=== PATIENT | female | born 1955 | race Caucasian/White ===

== ENCOUNTER 2017-01-05 15:02 | Emergency (ER) | payer OTHER ==
[~2017-01-05] VITALS: Ht 157.5 cm; Wt 86.0 kg
[~2017-01-05 15:02] MED LIST: ALBU0.08 INH; AMB10 PO; CHOL100010 PO; FENO134C PO; FISHOIL PO; LEVO88TA PO; LISI20TA3 PO; PANT40TA PO; SALI0.6517 NAE; VALA1TAB PO; ZNTT/150 PO
[2017-01-05 15:08] VITALS: TEMP 37; Ht 157.5 cm; Wt 86.0 kg
[2017-01-05 15:46] LABS: BASO % 0.2 %; BASO ABS # 0.01 K/uL (0-0.2); COMPLETE YES; IG% 0.7 %; LYMPH ABS # 1.24 K/uL (1.2-3.4); MEAN CORPUSCULAR HEMOGLOBIN 30.9 pg (25-34); MEAN CORPUSCULAR HGB CONC 35.6 g/dl (32-36); MEAN PLATELET VOLUME 9.1 fL (7.4-10.4); MONO % 2.8 %; NEUT % 73.3 %; PLATELET COUNT 286 K/uL (130-400); RED BLOOD COUNT 5.17 M/uL (4.2-5.4); WHITE BLOOD COUNT 5.38 K/uL (4.8-10.8)
--- NOTE | 2017-01-05 15:46 | EMERGENCY ROOM VISIT NOTE ---
History Report prepared by Yelena: Jodi Conde Under the Supervision of: Dr. Mario Doan M.D. First contact with patient: 15:31 Chief Complaint: RESPIRATORY PROBLEMS Stated Complaint: RESPIRATORY ISSUES-SENT FROM 'S OFFICE Nursing Triage Summary: sent by MD office; dx pneumonia sunday. History of Present Illness The patient is a 61 year old female who presents to the Emergency Room with complaints of worsening shortness of breath starting about 5 days ago. She also complains of a cough. 2 days ago, she was diagnosed with pneumonia. She has been taking Doxycycline as prescribed without relief. She has a history of asthma. The patient denies chest pain, abdominal pain, or any other complaints. Source of History: patient Onset: about 5 hours ago Position: other (global) Quality: other (shortness of breath) Timing: worsening Modifying Factors (Relieving): other (Doxycycline without relief) Associated Symptoms: + cough, No abdominal pain, No chest pain Review of Systems See HPI for pertinent positives & negatives. A total of 10 systems reviewed and were otherwise negative. Past Medical & Surgical Medical Problems: (1) Asthma (2) DIVERTICULITIS COLON (W/O MENT OF HEMORRHAGE) (3) Gastroesophageal reflux disease (4) HX-VENOUS THROMBOSIS&EMBOLISM (5) HYPERLIPIDEMIA NEC/NOS (6) HYPERTENSION NOS (7) Hypothyroidism (8) Irritable colon (9) s/p appendectomy (10) s/p cervical discectomy + fusion (11) s/p hysterectomy (12) s/p lumbar hemilaminectomy (13) SPINAL STENOSIS-LUMBAR (14) Spine surgery Family History No significant family history Social History Smoking Status: Former Smoker Alcohol Use: occasionally Marital Status: Housing Status: lives with family Current/Historical Medications Scheduled Albuterol Hfa (Ventolin Hfa), 2-4 PUFFS INH Q6H Cholecalciferol (Vitamin D3), 1 TAB PO DAILY Fenofibrate Micronized (Tricor), 134 MG PO DAILY Levothyroxine Sodium (Synthroid), 88 MCG PO QAM Lisinopril (Prinivil), 20 MG PO QAM [place]-3 Fatty Acids (Fish Oil), 1 CAP PO DAILY Pantoprazole (Protonix), 40 MG PO DAILY Prednisone (Prednisone), 0 PO DAILY Ranitidine (Zantac), 150 MG PO BID Scheduled PRN Albuterol Sulf (Proventil 0.083% 2.5MG/3ML), 2.5 MG INH Q4 PRN for SOB/Wheezing Lorazepam (Ativan), 0.5 MG PO Q6H PRN for Anxiety/Insomnia Valacyclovir Hcl (Valtrex), 1,000 MG PO DAILY PRN for OUTBREAKS Zolpidem Tartrate (Ambien), 10 MG PO HS PRN for Sleep Allergies Coded Allergies: Fentanyl (Verified Allergy, Unknown, itching, 01/05/17) Levofloxacin (Verified Allergy, Unknown, CAN'T TAKE WITH FLECAINIDE, ) gmg Penicillins (Verified Allergy, Unknown, RASH, 01/05/17) ALLERGY IS RASH Sulfa Drugs (Verified Allergy, Unknown, 01/05/17) Replaces SULFAMETHOXAZ Sulfamethoxazole (Verified Allergy, Unknown, 01/05/17) Replaces SULFAMETHOXAZ Trimethoprim (Verified Allergy, Unknown, 01/05/17) Replaces SULFAMETHOXAZ Physical Exam Vital Signs Date Time Temp Pulse Resp B/P Pulse Ox O2 Delivery O2 Flow Rate FiO2 01/05/17 17:45 96 15 144/75 98 01/05/17 17:15 93 01/05/17 16:58 106 15 145/78 100 Nebulizer 01/05/17 16:26 69 20 99 Room Air 01/05/17 15:08 37.0 81 18 168/102 96 Room Air Physical Exam CONSTITUTIONAL: Mild distress HEENT: No icterus, moist mucous membranes NECK: No meningismus, trachea is midline. CARDIOVASCULAR: Regular rate, normal perfusion RESPIRATORY: Mod wheezing in all culver GASTROINTESTINAL: Non-tender GENITOURINARY: No flank tenderness MUSCULOSKELETAL: Full range of motion NEUROLOGIC: No acute gross focal deficits. PSYCHIATRIC: Normal affect SKIN: Normal for ethnicity. Medical Decision & Procedures ER Provider Diagnostic Interpretation: X-ray results as stated below per interpretation by me and the radiologist. CHEST 2 VIEWS ROUTINE CLINICAL HISTORY: Cough. COMPARISON STUDY: Chest radiograph and chest CT March 25, 2014. FINDINGS: An anterior cervical spine fusion is incidentally noted. There is no pneumothorax. Cardiac size is normal. Mediastinal contours are normal. There is no evidence of pulmonary edema. There is no consolidation. IMPRESSION: No acute cardiopulmonary findings. Electronically signed by: Arsen Dominguez M.D. 01/05/2017 4:47 PM Dictated Date/Time: 01/05/2017 4:46 PM Laboratory Results 01/05/17 15:27 Red Blood Count 5.17, Mean Corpuscular Volume 87.0, Mean Corpuscular Hemoglobin 30.9, Mean Corpuscular Hemoglobin Concent 35.6, Mean Platelet Volume 9.1, Neutrophils (%) (Auto) 73.3, Lymphocytes (%) (Auto) 23.0, Monocytes (%) (Auto) 2.8, Eosinophils (%) (Auto) 0.0, Basophils (%) (Auto) 0.2, Neutrophils # (Auto) 3.94, Lymphocytes # (Auto) 1.24, Monocytes # (Auto) 0.15, Eosinophils # (Auto) 0.00, Basophils # (Auto) 0.01 01/05/17 15:27 Test 01/05/17 15:27 01/05/17 15:49 01/05/17 16:11 White Blood Count 5.38 K/uL (4.8-10.8) Red Blood Count 5.17 M/uL (4.2-5.4) Hemoglobin 16.0 g/dL (12.0-16.0) Hematocrit 45.0 % (37-47) Mean Corpuscular Volume 87.0 fL (80-100) Mean Corpuscular Hemoglobin 30.9 pg (25-34) Mean Corpuscular Hemoglobin Concent 35.6 g/dl (32-36) Platelet Count 286 K/uL (130-400) Mean Platelet Volume 9.1 fL (7.4-10.4) Neutrophils (%) (Auto) 73.3 % Lymphocytes (%) (Auto) 23.0 % Monocytes (%) (Auto) 2.8 % Eosinophils (%) (Auto) 0.0 % Basophils (%) (Auto) 0.2 % Neutrophils # (Auto) 3.94 K/uL (1.4-6.5) Lymphocytes # (Auto) 1.24 K/uL (1.2-3.4) Monocytes # (Auto) 0.15 K/uL (0.11-0.59) Eosinophils # (Auto) 0.00 K/uL (0-0.5) Basophils # (Auto) 0.01 K/uL (0-0.2) RDW Standard Deviation 43.0 fL (36.4-46.3) RDW Coefficient of Variation 13.4 % (11.5-14.5) Immature Granulocyte % (Auto) 0.7 % Immature Granulocyte # (Auto) 0.04 K/uL (0.00-0.02) Anion Gap 11.0 mmol/L (3-11) Est Creatinine Clear Calc Drug Dose 79.2 ml/min Estimated GFR () 99.9 Estimated GFR (Non- 86.2 BUN/Creatinine Ratio 21.6 (10-20) Calcium Level 9.2 mg/dl (8.5-10.1) Bedside Lactic Acid Venous 1.10 mmol/L (0.90-1.70) Influenza Type A Antigen POS for Influ A (NEG) Influenza Type B Antigen Neg for Influ B (NEG) Labs reviewed by ED physician. Medications Administered Medications (Trade) Dose Ordered Sig/Kt Route Start Time Stop Time Status Last Admin Dose Admin Methylprednisolone Sodium Succinate (Solu-Medrol IV) 125 mg NOW STAT IV 01/05/17 15:48 01/05/17 15:49 DC 01/05/17 16:06 125 MG Albuterol/ Ipratropium (Duoneb) 10 ml Q4R INH 01/05/17 16:00 01/05/17 18:57 DC 01/05/17 16:26 10 ML ED Course 1531: Past medical records reviewed. The patient was evaluated in room B05. A complete history and physical examination was performed. 1548: Solu-Medrol IV 125 mg IV 1600: DuoNeb 10 ml INH 1725: Upon reexamination the patient is resting comfortably. Her lungs are clear. I discussed results and treatment plan with the patient. She verbalizes agreement and understanding. The patient is ready for discharge. Medical Decision Differential diagnosis includes but is not limited to pneumonia, wheezing. 61-year-old with long-standing history of asthma presents into the emergency room for worsening cough and shortness of breath not responding to albuterol inhaler. She notes she was at an urgent care last week and given doxycycline but symptoms have not noticeably improved despite treatment with prednisone 40 mg daily. Moderate wheezing noted in all culver without any rhonchi nor rales. She was given Solu-Medrol 125 mg IV and continuous albuterol nebulizer treatments with near complete resolution of her wheezing. Chest x-ray negative for pneumonia. Patient given refill for albuterol MDI, prednisone taper starting at 60 mg. She was noted and positive for flu. Given the duration of her symptoms were discussed the pros and cons of Tamiflu and was subsequently declined by her. She appeared well at the time of discharge. Impression Primary Impression: Flu Additional Impressions: Viral URI Wheezing Scribe Attestation The scribe's documentation has been prepared under my direction and personally reviewed by me in its entirety. I confirm that the note above accurately reflects all work, treatment, procedures, and medical decision making performed by me. Departure Information Dispostion Home / Self-Care Prescriptions Albuterol Hfa (VENTOLIN HFA) 200 Puffs/74235 Mcg Aers 2-4 PUFFS INH Q6H, #1 INHALER Prov: Mario Doan MD 01/05/17 Lorazepam (ATIVAN) 0.5 Mg Tab 0.5 MG PO Q6H Y for Anxiety/Insomnia, #12 TAB Prov: Mario Doan MD 01/05/17 Prednisone (Prednisone) 20 Mg Tab 0 PO DAILY, #18 TAB 3 DAILY FOR 3 DAYS, THEN 2 DAILY FOR 3 DAYS, THEN 1 DAILY FOR 3 DAYS. Prov: Mario Doan MD 01/05/17 Referrals Abdirashid Clemente M.D. (PCP) Forms HOME CARE DOCUMENTATION FORM, IMPORTANT VISIT INFORMATION, WORK / SCHOOL INSTRUCTIONS Patient Instructions ED Flu, ED URI Viral W Wheezing, My [facility] Health Problem Qualifiers
[2017-01-05] MEDS ORDERED: METHYLPREDNISOLONE 125 MG VIAL IV STA (15:48)
[2017-01-05] MEDS ORDERED: ZOLP10TA PO (15:56)
[2017-01-05] MEDS ORDERED: ALBINS/ INH (15:56)
[2017-01-05] MEDS ORDERED: VALA1TAB2 PO (15:56)
[2017-01-05] MEDS ORDERED: OMEG1CAP84 PO (15:56)
[2017-01-05] MEDS ORDERED: CHOL1000 PO (15:56)
[2017-01-05] MEDS: ALBUT/IPRATROP 3MG/0.5MG NEB 3 ML VIAL INH SCH ×2 (16:00→16:26)
[2017-01-05 16:05] LABS: BUN/CREATININE RATIO 21.6 (10-20); CALCIUM 9.2 mg/dl (8.5-10.1); CREATININE 0.74 mg/dl (0.60-1.20); POTASSIUM 4.1 mmol/L (3.5-5.1)
[2017-01-05 16:26] VITALS: PULSE 69; O2SAT 99
--- NOTE | 2017-01-05 16:48 | DIAGNOSTIC IMAGING REPORT ---
CHEST 2 VIEWS ROUTINE CLINICAL HISTORY: Cough. COMPARISON STUDY: Chest radiograph and chest CT March 25, 2014. FINDINGS: An anterior cervical spine fusion is incidentally noted. There is no pneumothorax. Cardiac size is normal. Mediastinal contours are normal. There is no evidence of pulmonary edema. There is no consolidation. IMPRESSION: No acute cardiopulmonary findings. Electronically signed by: Arsen Dominguez M.D. 01/05/2017 4:47 PM Dictated Date/Time: 01/05/2017 4:46 PM
[2017-01-05] MEDS ORDERED: LORA-741 PO (17:23)
[2017-01-05] MEDS ORDERED: PRED20TA PO (17:23)
[2017-01-05] MEDS ORDERED: VNTHFA/IN INH (17:23)
[2017-01-05 17:45] VITALS: BP 144/75; PULSE 96; O2SAT 98
== END 2017-01-05 17:47 | disposition home or self-care (01) ==
LOC: C.EDB 15:04
DX: J06.9 Acute upper respiratory infection, unspecified (principal); J11.1 Influenza due to unidentified influenza virus with other respiratory manifestations; I10 Essential (primary) hypertension; E78.5 Hyperlipidemia, unspecified; E03.9 Hypothyroidism, unspecified; K21.9 Gastro-esophageal reflux disease without esophagitis; J45.909 Unspecified asthma, uncomplicated; K57.92 Diverticulitis of intestine, part unspecified, without perforation or abscess without bleeding; Z98.1 Arthrodesis status; Z98.890 Other specified postprocedural states; Z90.710 Acquired absence of both cervix and uterus; Z87.891 Personal history of nicotine dependence; Z79.899 Other long term (current) drug therapy; Z88.2 Allergy status to sulfonamides; Z88.8 Allergy status to other drugs, medicaments and biological substances

== ENCOUNTER 2017-09-17 17:24 | Inpatient (IN) | payer OTHER ==
[~2017-09-17] VITALS: Ht 157.5 cm; Wt 86.5 kg
[~2017-09-17 17:24] MED LIST changes: +ALBINS/ INH; -ALBU0.08 INH; -AMB10 PO; +CHOL1000 PO; -CHOL100010 PO; -FISHOIL PO; +OMEG1CAP84 PO; -SALI0.6517 NAE; -VALA1TAB PO; +VALA1TAB2 PO; +ZOLP10TA PO
[2017-09-17] MEDS ORDERED: HYDROmorphone INJ 1 MG/ML SYR IV STA ×2 (18:02→21:26)
[2017-09-17] MEDS ORDERED: METOCLOPRAMIDE HCL INJ 5 MG/ML 2 ML VIAL IV STA (18:02)
[2017-09-17] MEDS ORDERED: KETOROLAC TROMETHAMINE 30 MG/ML VIAL IV STA (18:02)
[2017-09-17] MEDS ORDERED: SODIUM CHLORIDE 0.9% 1000ML 1,000 ML IV STA (18:02)
--- NOTE | 2017-09-17 18:08 | EMERGENCY ROOM VISIT NOTE ---
History Report prepared by Yelena: Mary Martinez Under the Supervision of: Dr. Navi Jordan M.D. First contact with patient: 17:59 Chief Complaint: RECTAL BLEEDING Stated Complaint: DVT, RECTAL BLEEDING Nursing Triage Summary: pt reports hx of diverticulitis , today pain became worse and noted some blood in toilet History of Present Illness The patient is a 62 year old female who presents to the Emergency Room with complaints of severe abdominal pain beginning this afternoon. The patient states that she started to have symptoms similar to when she has had diverticulitis in the past and they worsened over the past couple of hours. Presently, the patient is vomiting upon initial examination. She had an episode of diarrhea which had blood in it. The patient has a history of chronic diverticulitis. She was started on Levaquin and doxycycline yesterday for diverticulitis. Source of History: patient Onset: afternoon Position: abdomen Symptom Intensity: severe Timing: worsening Associated Symptoms: + vomiting, + diarrhea Review of Systems See HPI for pertinent positives & negatives. A total of 10 systems reviewed and were otherwise negative. Past Medical & Surgical Medical Problems: (1) Asthma (2) DIVERTICULITIS COLON (W/O MENT OF HEMORRHAGE) (3) Gastroesophageal reflux disease (4) HX-VENOUS THROMBOSIS&EMBOLISM (5) HYPERLIPIDEMIA NEC/NOS (6) HYPERTENSION NOS (7) Hypothyroidism (8) Irritable colon (9) s/p appendectomy (10) s/p cervical discectomy + fusion (11) s/p hysterectomy (12) s/p lumbar hemilaminectomy (13) SPINAL STENOSIS-LUMBAR (14) Spine surgery Family History No significant family history Social History Smoking Status: Never Smoker Alcohol Use: occasionally Marital Status: Housing Status: lives with family Current/Historical Medications Scheduled Cholecalciferol (Vitamin D3), 1 TAB PO DAILY Levothyroxine Sodium (Synthroid), 88 MCG PO QAM Lisinopril (Prinivil), 20 MG PO QAM [place]-3 Fatty Acids (Fish Oil), 1 CAP PO DAILY Ranitidine (Zantac), 150 MG PO PRN Zolpidem Tartrate (Ambien), 10 MG PO HS Scheduled PRN Albuterol Sulf (Proventil 0.083% 2.5MG/3ML), 2.5 MG INH Q4 PRN for SOB/Wheezing Valacyclovir Hcl (Valtrex), 1,000 MG PO DAILY PRN for OUTBREAKS Allergies Coded Allergies: Fentanyl (Verified Allergy, Unknown, itching, 09/17/17) Levofloxacin (Verified Allergy, Unknown, CAN'T TAKE WITH FLECAINIDE, 09/17) gmg Penicillins (Verified Allergy, Unknown, RASH, 09/17/17) ALLERGY IS RASH Sulfa Drugs (Verified Allergy, Unknown, 09/17/17) Replaces SULFAMETHOXAZ Sulfamethoxazole (Verified Allergy, Unknown, 09/17/17) Replaces SULFAMETHOXAZ Trimethoprim (Verified Allergy, Unknown, 09/17/17) Replaces SULFAMETHOXAZ Physical Exam Vital Signs Date Time Temp Pulse Resp B/P (MAP) Pulse Ox O2 Delivery O2 Flow Rate FiO2 09/17/17 18:27 93 20 145/84 93 Room Air 09/17/17 17:33 37.0 100 20 159/84 95 Room Air Physical Exam GENERAL: Patient is a healthy-appearing well-nourished [] HEAD: Normocephalic atraumatic EYES: Ocular movements intact pupils equal and react to light OROPHARYNX mucous membranes are moist no exudates present no erythema or edema present NECK: Supple no nuchal rigidity CHEST: Good equal expansion LUNGS: Clear and equal to auscultation CARDIAC: Normal S1 and S2 ABDOMEN: LLQ tenderness, no guarding BACK: No CVA tenderness EXTREMITIES: No pain upon palpation normal muscle strength in all groups no clubbing cyanosis or edema NEURO: Patient is following commands and answering questions appropriately. Alert and oriented x3 Cranial Nerves 2-12 grossly intact Medical Decision & Procedures ER Provider Diagnostic Interpretation: CT SCAN OF THE ABDOMEN AND PELVIS WITH IV CONTRAST CLINICAL HISTORY: Left lower quadrant abdominal pain. COMPARISON STUDY: Abdominal CT dated 07/17/2016. TECHNIQUE: Following the IV administration of 92 cc of Optiray 320, CT scan of the abdomen and pelvis is performed from the lung bases to the proximal femora. Images are reviewed in the axial, sagittal, and coronal planes. IV contrast was administered without complication. A dose lowering technique was utilized adhering to the principles of ALARA. The examination is degraded by large body habitus, and by streak artifact from the body wall abutting the CT gantry. CT DOSE: 937.58 mGy.cm FINDINGS: Lung bases: The heart is top normal in size and without pericardial effusion. A calcified granuloma is seen in the lingula. The lung bases are otherwise clear noting dependent atelectasis. There is a small hiatal hernia. Liver: The contrast-enhanced liver is enlarged, measuring 20 cm in length. The liver demonstrates diffusely diminished attenuation consistent with hepatic steatosis. There is no intrahepatic biliary ductal dilatation. The hepatic veins and portal veins are patent. Gallbladder: Unremarkable. Spleen: Normal in size and attenuation. Pancreas: Unremarkable. Adrenal glands: Unremarkable. Kidneys: The contrast enhanced kidneys are normal in size and without hydronephrosis. The kidneys enhance symmetrically. Abdominal vasculature: The abdominal aorta is normal in course and caliber noting mild to moderate atherosclerotic calcification. Bowel: There is moderate colonic diverticulosis. There is wall thickening with pericolonic inflammation and fluid seen involving the sigmoid colon consistent with acute diverticulitis. There is no evidence of diverticular abscess. Fecal retention is noted in the right colon. No bowel obstruction is seen. The appendix is not visualized. Peritoneum: There is no intraperitoneal free air or abdominal ascites. There is a small fat-containing umbilical hernia. Lymphadenopathy: None. Pelvic viscera: The bladder is decompressed and not well evaluated. The uterus is surgically absent. No adnexal lesion is seen. Skeletal structures: The skeletal structures are osteopenic. There is mild lumbosacral spondylosis and scoliosis. Postoperative change is noted at L5-S1. No lytic or blastic lesions are seen. IMPRESSION: 1. Findings are consistent with acute sigmoid diverticulitis. No intraperitoneal free air is seen and there is no evidence of abscess. 2. Hepatomegaly and hepatic steatosis. 3. Additional findings as above. Electronically signed by: Frank Mendez M.D. 09/17/2017 7:22 PM Dictated Date/Time: 09/17/2017 7:16 PM Laboratory Results 09/17/17 18:10 Red Blood Count 4.95, Mean Corpuscular Volume 88.9, Mean Corpuscular Hemoglobin 32.7, Mean Corpuscular Hemoglobin Concent 36.8, Mean Platelet Volume 8.9, Neutrophils (%) (Auto) 76.1, Lymphocytes (%) (Auto) 13.0, Monocytes (%) (Auto) 9.7, Eosinophils (%) (Auto) 0.2, Basophils (%) (Auto) 0.0, Neutrophils # (Auto) 15.44, Lymphocytes # (Auto) 2.64, Monocytes # (Auto) 1.98, Eosinophils # (Auto) 0.05, Basophils # (Auto) 0.01 09/17/17 18:10 Test 09/17/17 18:10 09/17/17 18:19 09/17/17 18:40 White Blood Count 20.32 K/uL (4.8-10.8) Red Blood Count 4.95 M/uL (4.2-5.4) Hemoglobin 16.2 g/dL (12.0-16.0) Hematocrit 44.0 % (37-47) Mean Corpuscular Volume 88.9 fL (80-100) Mean Corpuscular Hemoglobin 32.7 pg (25-34) Mean Corpuscular Hemoglobin Concent 36.8 g/dl (32-36) Platelet Count 329 K/uL (130-400) Mean Platelet Volume 8.9 fL (7.4-10.4) Neutrophils (%) (Auto) 76.1 % Lymphocytes (%) (Auto) 13.0 % Monocytes (%) (Auto) 9.7 % Eosinophils (%) (Auto) 0.2 % Basophils (%) (Auto) 0.0 % Neutrophils # (Auto) 15.44 K/uL (1.4-6.5) Lymphocytes # (Auto) 2.64 K/uL (1.2-3.4) Monocytes # (Auto) 1.98 K/uL (0.11-0.59) Eosinophils # (Auto) 0.05 K/uL (0-0.5) Basophils # (Auto) 0.01 K/uL (0-0.2) RDW Standard Deviation 41.4 fL (36.4-46.3) RDW Coefficient of Variation 12.8 % (11.5-14.5) Immature Granulocyte % (Auto) 1.0 % Immature Granulocyte # (Auto) 0.20 K/uL (0.00-0.02) Est Creatinine Clear Calc Drug Dose 70.4 ml/min Estimated GFR () 90.3 Estimated GFR (Non- 77.9 BUN/Creatinine Ratio 24.2 (10-20) Calcium Level 9.0 mg/dl (8.5-10.1) Total Bilirubin 0.7 mg/dl (0.2-1) Direct Bilirubin 0.1 mg/dl (0-0.2) Aspartate Amino Transf (AST/SGOT) 14 U/L (15-37) Alanine Aminotransferase (ALT/SGPT) 33 U/L (12-78) Alkaline Phosphatase 82 U/L (45-117) Total Protein 7.2 gm/dl (6.4-8.2) Albumin 3.7 gm/dl (3.4-5.0) Lipase 119 U/L (73-393) Bedside Hemoglobin 16.7 g/dl (12.0-16.0) Bedside Hematocrit 49 % (37-47) Bedside Sodium 132 mEq/L (135-144) Bedside Potassium 4.2 mEq/L (3.3-5.0) Bedside Chloride 101 mEq/L (101-112) Bedside Total CO2 20 mEq/l (24-31) Anion Gap 16.0 mmol/L (16-25) Bedside Blood Urea Nitrogen 20 mg/dl (7-18) Bedside Creatinine 0.7 mg/dl (0.6-1.3) Bedside Glucose (other) 123 mg/dl (70-99) Bedside Ionized Calcium ([place]) 1.13 mmol/l (1.12-1.32) Urine Color YELLOW Urine Appearance CLEAR (CLEAR) Urine pH 5.0 (4.5-7.5) Urine Specific [place] 1.026 (1.000-1.030) Urine Protein NEG (NEG) Urine Glucose (UA) NEG (NEG) Urine Ketones TRACE (NEG) Urine Occult Blood NEG (NEG) Urine Nitrite NEG (NEG) Urine Bilirubin NEG (NEG) Urine Urobilinogen NEG (NEG) Urine Leukocyte Esterase NEG (NEG) Labs reviewed by ED physician. Medications Administered Medications (Trade) Dose Ordered Sig/Kt Route Start Time Stop Time Status Last Admin Dose Admin Hydromorphone HCl (Dilaudid Inj) 1 mg NOW STAT IV 09/17/17 18:02 09/17/17 18:05 DC 09/17/17 18:23 1 MG Sodium Chloride 1,000 ml @ 999 mls/hr Q1H1M STAT IV 09/17/17 18:02 09/17/17 19:02 DC 09/17/17 18:23 999 MLS/HR Metoclopramide HCl (Reglan Inj) 10 mg NOW STAT IV 09/17/17 18:02 09/17/17 18:05 DC 09/17/17 18:23 10 MG Ketorolac Tromethamine (Toradol Inj) 30 mg NOW STAT IV 09/17/17 18:02 09/17/17 18:05 DC 09/17/17 18:23 30 MG ED Course 1800: Past medical records reviewed. The patient was evaluated in room B9. A complete history and physical examination was performed. 180: Toradol Inj 30 mg IV, Reglan 10 mg IV, Sodium Chloride 1000 ml @ 999 mls/ hr, Dilaudid Inj 1 mg IV. 1814: Ioversol 11 ml IV. 183: I reevaluated the patient, she is more comfortable and has stopped vomiting. Medical Decision Differential diagnosis: Etiologies such as appendicitis, diverticulitis, PUD, biliary pathology, UTI, pancreatitis, obstruction, mesenteric ischemia, aortic pathology, infections, inflammatory bowel disease, renal colic, as well as others were entertained. This is a 62-year-old female who presents emergency department profusely vomiting. The patient was started on doxycycline as well as Levaquin yesterday. She has not been unable to keep her medications down for her diverticulitis. She has a large elevation in her white blood count cell count. Based on the patient's pain as well as the high white blood cell count she was sent for CAT scan of the abdomen and pelvis. This was concerning for diverticulitis. The patient was started on Dilaudid as well as Reglan. Repeat examination revealed improvement the patient's symptoms. Due to the patient's penicillin allergy she was started on aztreonam clindamycin as well as daptomycin. I did discuss the case with the hospitalist service who agreed to admit the patient. Medication Reconcilliation Current Medication List: was personally reviewed by me Impression Primary Impression: Abdominal pain Additional Impression: Diverticulitis Scribe Attestation The scribe's documentation has been prepared under my direction and personally reviewed by me in its entirety. I confirm that the note above accurately reflects all work, treatment, procedures, and medical decision making performed by me. Departure Information Dispostion Still a Patient Referrals Cj Rico III, M.D. (PCP) Patient Instructions My [facility] Problem Qualifiers Primary Impression: Abdominal pain Abdominal location: generalized Qualified Codes: R10.84 - Generalized abdominal pain Additional Impression: Diverticulitis Diverticulitis site: large intestine Diverticulitis bleeding: with bleeding Diverticulitis complication: without perforation or abscess Qualified Codes : K57.33 - Diverticulitis of large intestine without perforation or abscess with bleeding
[2017-09-17] MEDS ORDERED: OPTIRAY 320 IV PRN (18:15)
[2017-09-17 18:48] LABS: BASO ABS # 0.01 K/uL (0-0.2); BUN/CREATININE RATIO 24.2 (10-20); COMPLETE YES; CREATININE 0.8 mg/dl (0.60-1.20); EOS % 0.2 %; LYMPH ABS # 2.64 K/uL (1.2-3.4); MEAN CELL VOLUME 88.9 fL (80-100); MEAN CORPUSCULAR HEMOGLOBIN 32.7 pg (25-34); MEAN CORPUSCULAR HGB CONC 36.8 g/dl (32-36); MEAN PLATELET VOLUME 8.9 fL (7.4-10.4); MONO % 9.7 %; NEUT % 76.1 %; PLATELET COUNT 329 K/uL (130-400); POTASSIUM 4.2 mmol/L (3.5-5.1); RED BLOOD COUNT 4.95 M/uL (4.2-5.4); WHITE BLOOD COUNT 20.32 K/uL (4.8-10.8)
[2017-09-17 18:53] LABS: ISTAT CREATININE 0.7 mg/dl (0.6-1.3); ISTAT HEMOGLOBIN 16.7 g/dl (12.0-16.0); ISTAT IONIZED CALCIUM 1.13 mmol/l (1.12-1.32)
[2017-09-17 18:57] LABS: URINE APPEARANCE CLEAR (CLEAR); URINE BILIRUBIN NEG (NEG); URINE COLOR YELLOW; URINE NITRITE NEG (NEG); URINE SPECIFIC GRAVITY 1.026 (1.000-1.030); UROBILINOGEN NEG (NEG)
[2017-09-17 19:04] LABS: MANUAL MICROSCOPIC REQUIRED? NO; REVIEW REQ? NO
--- NOTE | 2017-09-17 19:23 | DIAGNOSTIC IMAGING REPORT ---
CT SCAN OF THE ABDOMEN AND PELVIS WITH IV CONTRAST CLINICAL HISTORY: Left lower quadrant abdominal pain. COMPARISON STUDY: Abdominal CT dated 07/17/2016. TECHNIQUE: Following the IV administration of 92 cc of Optiray 320, CT scan of the abdomen and pelvis is performed from the lung bases to the proximal femora. Images are reviewed in the axial, sagittal, and coronal planes. IV contrast was administered without complication. A dose lowering technique was utilized adhering to the principles of ALARA. The examination is degraded by large body habitus, and by streak artifact from the body wall abutting the CT gantry. CT DOSE: 937.58 mGy.cm FINDINGS: Lung bases: The heart is top normal in size and without pericardial effusion. A calcified granuloma is seen in the lingula. The lung bases are otherwise clear noting dependent atelectasis. There is a small hiatal hernia. Liver: The contrast-enhanced liver is enlarged, measuring 20 cm in length. The liver demonstrates diffusely diminished attenuation consistent with hepatic steatosis. There is no intrahepatic biliary ductal dilatation. The hepatic veins and portal veins are patent. Gallbladder: Unremarkable. Spleen: Normal in size and attenuation. Pancreas: Unremarkable. Adrenal glands: Unremarkable. Kidneys: The contrast enhanced kidneys are normal in size and without hydronephrosis. The kidneys enhance symmetrically. Abdominal vasculature: The abdominal aorta is normal in course and caliber noting mild to moderate atherosclerotic calcification. Bowel: There is moderate colonic diverticulosis. There is wall thickening with pericolonic inflammation and fluid seen involving the sigmoid colon consistent with acute diverticulitis. There is no evidence of diverticular abscess. Fecal retention is noted in the right colon. No bowel obstruction is seen. The appendix is not visualized. Peritoneum: There is no intraperitoneal free air or abdominal ascites. There is a small fat-containing umbilical hernia. Lymphadenopathy: None. Pelvic viscera: The bladder is decompressed and not well evaluated. The uterus is surgically absent. No adnexal lesion is seen. Skeletal structures: The skeletal structures are osteopenic. There is mild lumbosacral spondylosis and scoliosis. Postoperative change is noted at L5-S1. No lytic or blastic lesions are seen. IMPRESSION: 1. Findings are consistent with acute sigmoid diverticulitis. No intraperitoneal free air is seen and there is no evidence of abscess. 2. Hepatomegaly and hepatic steatosis. 3. Additional findings as above. Electronically signed by: Frank Mendez M.D. 09/17/2017 7:22 PM Dictated Date/Time: 09/17/2017 7:16 PM
[2017-09-17] MEDS ORDERED: SODIUM CHLORIDE 0.9% IV STA (19:34)
[2017-09-17] MEDS ORDERED: DAPTOMYCIN IV STA (19:34)
[2017-09-17] MEDS ORDERED: AZTREONAM IV 2,000 MG in DEXTROSE 5% 100ML 100 ML IV STA (19:34)
[2017-09-17] MEDS ORDERED: CLINDAMYCIN 600 MG/54 ML D5W IV STA (19:36)
[2017-09-17] MEDS ORDERED: CEFTRIAXONE SOD INJ 1 GM ADDVIAL IV STA (19:57)
[2017-09-17] MEDS ORDERED: CEFTRIAXONE SOD INJ 1000 MG in DEXTROSE 5% 50ML IV STA (21:03)
[2017-09-17] MEDS ORDERED: HYDROmorphone INJ 1 MG/ML SYR ONE (21:09)
[2017-09-17] MEDS ORDERED: METRONIDAZOLE / NSS 500 MG in PREMIXED NSS 100 ML IV SCH (21:15)
[2017-09-17] MEDS ORDERED: HYDROmorphone INJ 1 MG/ML SYR IV PRN (21:15)
[2017-09-17] MEDS ORDERED: ACETAMINOPHEN 325 MG TAB PO PRN (21:30)
[2017-09-17] MEDS ORDERED: RANITIDINE HCL 150 MG TAB PO PRN (21:30)
[2017-09-17] MEDS ORDERED: ONDANSETRON INJ 2 MG/ML 2 ML VIAL IV PRN (21:30)
[2017-09-17] MEDS ORDERED: LORAZEPAM 2 MG/ML 1 ML VIAL IV PRN (21:30)
[2017-09-17] MEDS ORDERED: TRAMADOL HCL 50 MG TAB PO PRN (21:30)
--- NOTE | 2017-09-17 21:42 | History and Physical ---
History & Physical Date & Time of Service: Sep 17, 2017 at 21:14 Chief Complaint: Rectal Bleeding Primary Care Physician: Cj Rico III, M.D. History of Present Illness Source: patient, clinic records This is a 62yo F with a PMH of recurrent diverticulitis, gastroparesis, paroxysmal a fib, asthma, HTN and other problems listed below who presents with worsening abdominal pain over the past few days. A few weeks ago, patient started to experience nausea with mild, diffuse abdominal pain. Over the past few days, her abdominal pain worsened and was associated with subjective fever, chills, decreased PO intake and loose stools. Patient was started on Levaquin and doxycycline yesterday for diverticulitis. Today, patient's pain worsened to a 10/10 sharp, diffuse pain located primarily in the LLQ. Made worse with movement and better with pain medication. Also experienced 1 episode of bright red blood per rectum and nausea/vomiting (x2 episodes) today. brought patient to ER for further evaluation. In addition to abd pain, nausea/vomiting and BRBPR, patient endorses intermittent palpitations and LLE pain. Denies fever, chills, headache, visual changes, CP, SOB, hematemesis, melena, LE swelling. Past Medical/Surgical History Medical Problems: (1) Asthma Status: Chronic (2) DIVERTICULITIS COLON (W/O MENT OF HEMORRHAGE) Status: Resolved (3) Gastroesophageal reflux disease Status: Chronic (4) HX-VENOUS THROMBOSIS&EMBOLISM Status: Resolved (5) HYPERLIPIDEMIA NEC/NOS Status: Chronic (6) HYPERTENSION NOS Status: Chronic (7) Hypothyroidism Status: Chronic (8) Irritable colon Status: Chronic (9) s/p appendectomy Status: Resolved (10) s/p cervical discectomy + fusion Status: Resolved (11) s/p hysterectomy Status: Resolved (12) s/p lumbar hemilaminectomy Status: Resolved (13) SPINAL STENOSIS-LUMBAR Status: Resolved (14) Spine surgery Status: Resolved Family History No significant family history Social History Smoking Status: Former Smoker (Quit 10 years ago.) Alcohol Use: socially (2-3 glasses of wine/week) Marital Status: Housing status: lives with significant other Immunizations History of Influenza Vaccine: No Influenza Vaccine Date: Mar 02, 2011 History of Tetanus Vaccine?: Yes Tetanus Immunization Date: Jun 09, 2009 History of Pneumococcal: No Pneumococcal Date: Dec 31, 2009 History of Hepatitis B Vaccine: No Multi-Drug Resistant Organisms History of MDRO: No Allergies Coded Allergies: Fentanyl (Verified Allergy, Unknown, itching, 09/17/17) Levofloxacin (Verified Allergy, Unknown, CAN'T TAKE WITH FLECAINIDE, 09/17) gmg Penicillins (Verified Allergy, Unknown, RASH, 09/17/17) ALLERGY IS RASH Sulfa Drugs (Verified Allergy, Unknown, 09/17/17) Replaces SULFAMETHOXAZ Sulfamethoxazole (Verified Allergy, Unknown, 09/17/17) Replaces SULFAMETHOXAZ Trimethoprim (Verified Allergy, Unknown, 09/17/17) Replaces SULFAMETHOXAZ Metronidazole (Verified Adverse Reaction, Unknown, 0, 09/17/17) GI upset w PO Flagyl; px can tolerate IV Flagyl Home Medications Scheduled Cholecalciferol (Vitamin D3), 1 TAB PO DAILY Levothyroxine Sodium (Synthroid), 88 MCG PO QAM Lisinopril (Prinivil), 20 MG PO QAM [place]-3 Fatty Acids (Fish Oil), 1 CAP PO DAILY Ranitidine (Zantac), 150 MG PO PRN Zolpidem Tartrate (Ambien), 10 MG PO HS Scheduled PRN Albuterol Sulf (Proventil 0.083% 2.5MG/3ML), 2.5 MG INH Q4 PRN for SOB/Wheezing Valacyclovir Hcl (Valtrex), 1,000 MG PO DAILY PRN for OUTBREAKS Review of Systems Ten systems reviewed and negative except as noted in the HPI. Physical Exam Vital Signs Date Time Temp Pulse Resp B/P (MAP) Pulse Ox O2 Delivery O2 Flow Rate FiO2 09/17/17 20:26 85 09/17/17 20:00 85 145/84 09/17/17 18:27 93 20 145/84 93 Room Air 09/17/17 17:33 37.0 100 20 159/84 95 Room Air General Appearance: + mild distress, + obese Head: normocephalic, atraumatic Eyes: normal inspection, PERRL, sclerae normal (Conjunctiva normal ) ENT: normal ENT inspection (Dry mucous membranes ), hearing grossly normal, pharynx normal Neck: supple, thyroid normal, trachea midline Respiratory/Chest: chest non-tender, lungs clear, normal breath sounds, no respiratory distress, no accessory muscle use Cardiovascular: regular rate, rhythm, no murmur, normal peripheral pulses Abdomen/GI: normal bowel sounds, soft, no organomegaly, + tenderness (Diffuse TTP, most severe in LLQ. No guarding. ) Back: normal inspection Extremities/Musculoskelatal: normal inspection, no pedal edema, + calf tenderness (Left ) Neurologic/Psych: no motor/sensory deficits, alert, normal mood/affect, oriented x 3 Skin: normal color, warm/dry, no rash Diagnostics Laboratory Results Results Past 24 Hours Test 09/17/17 18:10 09/17/17 18:19 09/17/17 18:40 Range/Units White Blood Count 20.32 4.8-10.8 K/uL Red Blood Count 4.95 4.2-5.4 M/uL Hemoglobin 16.2 12.0-16.0 g/dL Hematocrit 44.0 37-47 % Mean Corpuscular Volume 88.9 80-100 fL Mean Corpuscular Hemoglobin 32.7 25-34 pg Mean Corpuscular Hemoglobin Concent 36.8 32-36 g/dl Platelet Count 329 130-400 K/uL Mean Platelet Volume 8.9 7.4-10.4 fL Neutrophils (%) (Auto) 76.1 % Lymphocytes (%) (Auto) 13.0 % Monocytes (%) (Auto) 9.7 % Eosinophils (%) (Auto) 0.2 % Basophils (%) (Auto) 0.0 % Neutrophils # (Auto) 15.44 1.4-6.5 K/uL Lymphocytes # (Auto) 2.64 1.2-3.4 K/uL Monocytes # (Auto) 1.98 0.11-0.59 K/uL Eosinophils # (Auto) 0.05 0-0.5 K/uL Basophils # (Auto) 0.01 0-0.2 K/uL RDW Standard Deviation 41.4 36.4-46.3 fL RDW Coefficient of Variation 12.8 11.5-14.5 % Immature Granulocyte % (Auto) 1.0 % Immature Granulocyte # (Auto) 0.20 0.00-0.02 K/uL Sodium Level 132 136-145 mmol/L Potassium Level 4.2 3.5-5.1 mmol/L Chloride Level 102 98-107 mmol/L Carbon Dioxide Level 21 21-32 mmol/L Anion Gap 9.0 16.0 16-25 mmol/L Blood Urea Nitrogen 19 7-18 mg/dl Creatinine 0.80 0.60-1.20 mg/dl Est Creatinine Clear Calc Drug Dose 70.4 ml/min Estimated GFR () 90.3 Estimated GFR (Non- 77.9 BUN/Creatinine Ratio 24.2 10-20 Random Glucose 123 70-99 mg/dl Calcium Level 9.0 8.5-10.1 mg/dl Magnesium Level 1.7 1.8-2.4 mg/dl Total Bilirubin 0.7 0.2-1 mg/dl Direct Bilirubin 0.1 0-0.2 mg/dl Aspartate Amino Transf (AST/SGOT) 14 15-37 U/L Alanine Aminotransferase (ALT/SGPT) 33 12-78 U/L Alkaline Phosphatase 82 45-117 U/L Total Protein 7.2 6.4-8.2 gm/dl Albumin 3.7 3.4-5.0 gm/dl Lipase 119 73-393 U/L Bedside Hemoglobin 16.7 12.0-16.0 g/dl Bedside Hematocrit 49 37-47 % Bedside Sodium 132 135-144 mEq/L Bedside Potassium 4.2 3.3-5.0 mEq/L Bedside Chloride 101 101-112 mEq/L Bedside Total CO2 20 24-31 mEq/l Bedside Blood Urea Nitrogen 20 7-18 mg/dl Bedside Creatinine 0.7 0.6-1.3 mg/dl Bedside Glucose (other) 123 70-99 mg/dl Bedside Ionized Calcium ([place]) 1.13 1.12-1.32 mmol/l Urine Color YELLOW Urine Appearance CLEAR CLEAR Urine pH 5.0 4.5-7.5 Urine Specific [place] 1.026 1.000-1.030 Urine Protein NEG NEG Urine Glucose (UA) NEG NEG Urine Ketones TRACE NEG Urine Occult Blood NEG NEG Urine Nitrite NEG NEG Urine Bilirubin NEG NEG Urine Urobilinogen NEG NEG Urine Leukocyte Esterase NEG NEG Diagnostic Radiology CT abd/pelvis: IMPRESSION: 1. Findings are consistent with acute sigmoid diverticulitis. No intraperitoneal free air is seen and there is no evidence of abscess. 2. Hepatomegaly and hepatic steatosis. 3. Additional findings as above. Impression Assessment and Plan This is a 62yo F with a PMH of recurrent diverticulitis, gastroparesis, paroxysmal a fib, asthma, HTN and other problems listed below who presents with worsening abdominal pain over the past few days. Acute diverticulitis: -CT abd/pelvis with acute sigmoid diverticulitis. No evidence of abscess -H/o diverticulitis. Completed 1 day of PO antibiotics [employer] -Presents with LLQ abd pain, 1 episode of BRBPR, 2 episodes of vomiting -Leukocytosis of 20.3 -Hemoglobin stable at 16 -Ceftriaxone and flagyl started -Clear liquid diet -Pain control -GI consulted -Schedule out-patient colonoscopy Paroxysmal A Fib: -H/o ablation in 2009 -Endorses intermittent palpitations, no CP -HR 87-100 bpm -EKG pending LLE pain: -H/o PE in 2008 -L LE doppler to r/o DVT HTN: -BP normotensive -Continue home dose of Lisinopril Hypothyroidism: -TSH wnl -Continue Synthroid GERD: -Stable -Continue ranitidine Asthma, mild COPD: -Denies SOB, breath sounds clear on exam -Continue home inhalers DVT Ppx: SCDs Code status: FULL PCP: Trisha Dispo: Plan to return home once medically stable Patient seen in collaboration with Dr. Schwab. Please see his addendum. Level of Care Med/Surg Resuscitation Status FULL RESUSCITATION VTE Prophylaxis VTE Risk Assessment Done? Y/N: Yes Risk Level: Moderate Given or contraindicated: SCD's Assessment/Plan IM ATTENDING : Patient seen and examined. History obtained from patient and records. Preceding documentation by Ms. Yris Morley PA-C, reviewed. FINAL ASSESSMENT AND PLAN as follows: 1. LGIB 2 to recurrent diverticulitis no sepsis. GI bleed Rule out recurrent Clostridium difficile. 2. Palpitations rule out recurrent atrial fibrillation past hx cardioversion/Coumadin anticoagulation. 3. History of pulmonary embolism, deep venous thrombosis status post anticoagulation. 4. Left leg pain rule out deep venous thrombosis. 5. Hypertension, stable 6. Past tobacco abuse. GMF CS, IV Ceftriaxone and IV Flagyl for now. GI consult, recurrent diverticulitis Outpatient colorectal surgery consultation for recurrent diverticulitis ID consult RE antibiotic recommendations with p.o. Flagyl intolerance. (Patient may be a candidate for IV Ertapenem home rx.) Serial H&H, transfuse if hemoglobin less than 7 and/or symptomatic anemia. stool cdif check EKG. RE palpitations LE Venous Dopplers ro DVT. DVT prophylaxis, SCDs RE LGIB Full code.
[2017-09-17 22:13] VITALS: BP 107/73; PULSE 73; TEMP 37; O2SAT 96; Ht 157.5 cm; Wt 86.5 kg
--- NOTE | 2017-09-17 22:15 | DIAGNOSTIC IMAGING REPORT ---
ULTRASOUND LEFT LOWER EXTREMITY VENOUS CLINICAL HISTORY: Left leg pain. COMPARISON STUDY: Bilateral lower extremity venous ultrasound dated 07/17/2016. TECHNIQUE: Real-time, grayscale, and color Doppler sonography of the deep veins of the left lower extremity was performed from the inguinal crease to the calf. Compression and augmentation were utilized. FINDINGS: There is no sonographic evidence of deep venous thrombosis identified in the left lower extremity. The common femoral, superficial femoral, and popliteal veins are patent and normally compressible. The greater saphenous vein and the profunda femoris vein at the junction with the common femoral vein are clear. The visualized calf veins are patent. IMPRESSION: There is no sonographic evidence of deep venous thrombosis identified in the left lower extremity. Electronically signed by: Frank Mendez M.D. 09/17/2017 10:14 PM Dictated Date/Time: 09/17/2017 10:14 PM
--- NOTE | 2017-09-17 22:31 | HISTORY & PHYSICAL EXAMINATION ---
DATE OF ADMISSION: 09/17/2017 IM ATTENDING : Patient seen and examined. History obtained from patient and records. Preceding documentation by Ms. Yris Morley PA-C, reviewed. FINAL ASSESSMENT AND PLAN as follows: 1. LGIB 2 to recurrent diverticulitis no sepsis. GI bleed Rule out recurrent Clostridium difficile. 2. Palpitations rule out recurrent atrial fibrillation past hx cardioversion/Coumadin anticoagulation. 3. History of pulmonary embolism, deep venous thrombosis status post anticoagulation. 4. Left leg pain rule out deep venous thrombosis. 5. Hypertension, stable 6. Past tobacco abuse. GMF CS, IV Ceftriaxone and IV Flagyl for now. GI consult, recurrent diverticulitis Outpatient colorectal surgery consultation for recurrent diverticulitis ID consult RE antibiotic recommendations with p.o. Flagyl intolerance. (Patient may be a candidate for IV Ertapenem home rx.) Serial H&H, transfuse if hemoglobin less than 7 and/or symptomatic anemia. check EKG. RE palpitations LE Venous Dopplers ro DVT. DVT prophylaxis, SCDs RE LGIB Full code. MTDD
[2017-09-17] MEDS ORDERED: SODIUM CHLORIDE 0.9% 1000ML 1,000 ML IV ONE (22:45)
[2017-09-17] MEDS ORDERED: MAGNESIUM SULFATE 1GM / D5W 1 GM in PREMIXED IN D5W 100 ML IV ONE (23:00)
[2017-09-17] MEDS: ZOLPIDEM TARTRATE 10 MG TAB PO SCH (23:28)
[2017-09-18] VITALS: O2SAT 96
[2017-09-18] LABS: THYROID STIMULATING HORMONE 5.07 uIu/ml (0.300-4.500)
[2017-09-18] MEDS ORDERED: LORAZEPAM INJ 0.5 MG in SYRINGE 0.75 ML IV PRN (00:15)
[2017-09-18] MEDS ORDERED: METRONIDAZOLE / NSS 500 MG in PREMIXED NSS 100 ML IV SCH (06:00)
[2017-09-18 06:06] LABS: BASO % 0.1 %; BASO ABS # 0.01 K/uL (0-0.2); COMPLETE YES; EOS % 0.3 %; HEMATOCRIT 39.8 % (37-47); IG% 0.6 %; LYMPH % 18.1 %; LYMPH ABS # 1.93 K/uL (1.2-3.4); MEAN CELL VOLUME 89.2 fL (80-100); MEAN CORPUSCULAR HEMOGLOBIN 30.9 pg (25-34); MEAN CORPUSCULAR HGB CONC 34.7 g/dl (32-36); MEAN PLATELET VOLUME 8.5 fL (7.4-10.4); NEUT % 68.9 %; PLATELET COUNT 238 K/uL (130-400); RED BLOOD COUNT 4.46 M/uL (4.2-5.4); WHITE BLOOD COUNT 10.69 K/uL (4.8-10.8)
[2017-09-18] MEDS: LEVOTHYROXINE 88 MCG TAB PO SCH (06:22)
[2017-09-18 06:41] LABS: CREATININE 0.67 mg/dl (0.60-1.20); MAGNESIUM 2.3 mg/dl (1.8-2.4); POTASSIUM 4.6 mmol/L (3.5-5.1)
[2017-09-18 07:24] VITALS: BP 134/79; PULSE 69; TEMP 37.2; O2SAT 95
[2017-09-18] MEDS: LISINOPRIL 20 MG TAB PO SCH (09:02)
--- NOTE | 2017-09-18 10:54 | Medical Consult ---
Consultation Date of Consultation: Sep 18, 2017. Attending Physician: Nohelia Lang M.D. Reason for Consultation: Recurrent diverticulitis, p.o. Flagyl intolerance History of Present Illness 62-year-old female with history of multiple recurrences of acute diverticulitis , thought not to be a surgical candidate, now presents with several days of progressively worsening abdominal pain, mostly in the left lower quadrant, associated with nausea, vomiting, loose stools, and 1 episode of bright red blood per rectum. Pain worse rated 10/10 in intensity. Came to the emergency department where CT scan, read me, showed evidence of acute sigmoid diverticulitis. Was given dose of aztreonam and started on metronidazole. Still complaining of severe pain. No further vomiting. Currently afebrile. Past Medical/Surgical History Medical Problems: (1) Flu Status: Acute (2) Viral URI Status: Acute (3) Wheezing Status: Acute Medical Problems: (1) Asthma (2) DIVERTICULITIS COLON (W/O MENT OF HEMORRHAGE) (3) Gastroesophageal reflux disease (4) HX-VENOUS THROMBOSIS&EMBOLISM (5) HYPERLIPIDEMIA NEC/NOS (6) HYPERTENSION NOS (7) Hypothyroidism (8) Irritable colon (9) s/p appendectomy (10) s/p cervical discectomy + fusion (11) s/p hysterectomy (12) s/p lumbar hemilaminectomy (13) SPINAL STENOSIS-LUMBAR (14) Spine surgery Family History No significant family history Social History Smoking Status: Former Smoker Alcohol Use: socially (2-3 glasses of wine/week) Marital Status: Housing Status: lives with family Allergies Coded Allergies: Fentanyl (Verified Allergy, Unknown, itching, 09/17/17) Levofloxacin (Verified Allergy, Unknown, CAN'T TAKE WITH FLECAINIDE, 09/17) gmg Penicillins (Verified Allergy, Unknown, RASH, 09/17/17) ALLERGY IS RASH Sulfa Drugs (Verified Allergy, Unknown, 09/17/17) Replaces SULFAMETHOXAZ Sulfamethoxazole (Verified Allergy, Unknown, 09/17/17) Replaces SULFAMETHOXAZ Trimethoprim (Verified Allergy, Unknown, 09/17/17) Replaces SULFAMETHOXAZ Metronidazole (Verified Adverse Reaction, Unknown, 0, 09/17/17) GI upset w PO Flagyl; px can tolerate IV Flagyl Current Inpatient Medications Current Inpatient Medications Medications (Trade) Dose Ordered Sig/Kt Route Start Time Stop Time Status Last Admin Dose Admin Ioversol (Optiray 320) 111 ml UD PRN IV 09/17/17 18:15 09/21/17 18:14 Metronidazole 500 mg/Prmx 100 ml @ 100 mls/hr Q8H IV 09/18/17 06:00 09/28/17 05:59 09/18/17 06:22 100 MLS/HR Acetaminophen (Tylenol Tab) 650 mg Q4H PRN PO 09/17/17 21:30 10/17/17 21:29 Levothyroxine Sodium (Synthroid Tab) 88 mcg DAILYBB PO 09/18/17 06:30 10/18/17 06:29 09/18/17 06:22 88 MCG Lisinopril (Zestril Tab) 20 mg QAM PO 09/18/17 09:00 10/18/17 08:59 09/18/17 09:02 20 MG Ranitidine HCl (zANTac TAB) 150 mg DAILY PRN PO 09/17/17 21:30 10/17/17 21:29 Zolpidem Tartrate (Ambien Tab) 10 mg HS PO 09/17/17 23:00 10/17/17 22:59 09/17/17 23:28 10 MG Ketorolac Tromethamine (Toradol Inj) 30 mg Q6H PRN IV 09/17/17 21:30 09/22/17 21:29 Tramadol HCl (Ultram Tab) not relieved by tylenol @ Q6H PRN PO 09/17/17 21:30 10/17/17 21:29 Ondansetron HCl (Zofran Inj) 4 mg Q6H PRN IV 09/17/17 21:30 10/17/17 21:29 09/18/17 00:07 4 MG Hydromorphone HCl (Dilaudid Inj) 0.5 mg Q3H PRN IV 09/17/17 21:30 10/01/17 21:29 Sodium Chloride 1,000 ml @ 75 mls/hr [id number] ONCE IV 09/17/17 22:45 09/18/17 12:04 09/17/17 23:27 75 MLS/HR Lorazepam 0.5 mg/ Syringe 1 ml @ 1 mls/min Q4H PRN IV 09/18/17 00:15 10/18/17 00:14 Review of Systems Constitutional: + weakness, + fatigue Eyes: No problem reported ENT: No problem reported Respiratory: No problem reported Cardiovascular: No problem reported Abdomen: + pain, + nausea, + vomiting, + diarrhea, + GI bleeding Musculoskeletal: No problem reported Genitourinary - Female: No problem reported Neurologic: No problem reported Psychiatric: No problem reported Endocrine: No problem reported Hematologic / Lymphatic: No problem reported Integumentary: No problem reported Allergic / Immunologic: No problem reported Physical Exam Date Time Temp Pulse Resp B/P (MAP) Pulse Ox O2 Delivery O2 Flow Rate FiO2 09/18/17 08:10 Room Air 09/18/17 07:24 37.2 69 18 134/79 (97) 95 09/18/17 00:00 96 Room Air 09/17/17 22:30 73 20 107/73 96 Room Air 09/17/17 22:13 37.0 73 20 107/73 96 Room Air 09/17/17 21:14 87 20 141/71 94 Room Air 09/17/17 20:26 85 09/17/17 20:00 85 145/84 09/17/17 18:27 93 20 145/84 93 Room Air 09/17/17 17:33 37.0 100 20 159/84 95 Room Air General Appearance: WD/WN, + mild distress Head: normocephalic, atraumatic Eyes: normal inspection, EOMI, sclerae normal ENT: normal ENT inspection, hearing grossly normal, pharynx normal Neck: supple, no adenopathy, thyroid normal, trachea midline Respiratory/Chest: chest non-tender, lungs clear, normal breath sounds, no respiratory distress Cardiovascular: no gallop, no murmur, + irregularly irregular Abdomen/GI: normal bowel sounds, soft, no organomegaly, + tenderness Back: normal inspection, no CVA tenderness Extremities/Musculoskelatal: no calf tenderness, normal capillary refill, non- tender Neurologic/Psych: alert, oriented x 3 Skin: normal color, warm/dry, no rash Lymphatic: no adenopathy Laboratory Results Last 24 Hours Test 09/17/17 18:10 09/17/17 18:19 09/17/17 18:40 09/17/17 21:42 White Blood Count 20.32 K/uL Red Blood Count 4.95 M/uL Hemoglobin 16.2 g/dL 15.0 g/dL Hematocrit 44.0 % 42.0 % Mean Corpuscular Volume 88.9 fL Mean Corpuscular Hemoglobin 32.7 pg Mean Corpuscular Hemoglobin Concent 36.8 g/dl Platelet Count 329 K/uL Mean Platelet Volume 8.9 fL Neutrophils (%) (Auto) 76.1 % Lymphocytes (%) (Auto) 13.0 % Monocytes (%) (Auto) 9.7 % Eosinophils (%) (Auto) 0.2 % Basophils (%) (Auto) 0.0 % Neutrophils # (Auto) 15.44 K/uL Lymphocytes # (Auto) 2.64 K/uL Monocytes # (Auto) 1.98 K/uL Eosinophils # (Auto) 0.05 K/uL Basophils # (Auto) 0.01 K/uL RDW Standard Deviation 41.4 fL RDW Coefficient of Variation 12.8 % Immature Granulocyte % (Auto) 1.0 % Immature Granulocyte # (Auto) 0.20 K/uL Sodium Level 132 mmol/L Potassium Level 4.2 mmol/L Chloride Level 102 mmol/L Carbon Dioxide Level 21 mmol/L Anion Gap 9.0 mmol/L 16.0 mmol/L Blood Urea Nitrogen 19 mg/dl Creatinine 0.80 mg/dl Est Creatinine Clear Calc Drug Dose 70.4 ml/min Estimated GFR () 90.3 Estimated GFR (Non- 77.9 BUN/Creatinine Ratio 24.2 Random Glucose 123 mg/dl Calcium Level 9.0 mg/dl Magnesium Level 1.7 mg/dl Total Bilirubin 0.7 mg/dl Direct Bilirubin 0.1 mg/dl Aspartate Amino Transf (AST/SGOT) 14 U/L Alanine Aminotransferase (ALT/SGPT) 33 U/L Alkaline Phosphatase 82 U/L Total Protein 7.2 gm/dl Albumin 3.7 gm/dl Lipase 119 U/L Bedside Hemoglobin 16.7 g/dl Bedside Hematocrit 49 % Bedside Sodium 132 mEq/L Bedside Potassium 4.2 mEq/L Bedside Chloride 101 mEq/L Bedside Total CO2 20 mEq/l Bedside Blood Urea Nitrogen 20 mg/dl Bedside Creatinine 0.7 mg/dl Bedside Glucose (other) 123 mg/dl Bedside Ionized Calcium (Reginaldo) 1.13 mmol/l Urine Color YELLOW Urine Appearance CLEAR Urine pH 5.0 Urine Specific [place] 1.026 Urine Protein NEG Urine Glucose (UA) NEG Urine Ketones TRACE Urine Occult Blood NEG Urine Nitrite NEG Urine Bilirubin NEG Urine Urobilinogen NEG Urine Leukocyte Esterase NEG Test 09/17/17 23:16 09/18/17 05:51 Sodium Level 133 mmol/L 140 mmol/L Thyroid Stimulating Hormone (TSH) 5.070 uIu/ml Hepatitis C Antibody Screen NEG White Blood Count 10.69 K/uL Red Blood Count 4.46 M/uL Hemoglobin 13.8 g/dL Hematocrit 39.8 % Mean Corpuscular Volume 89.2 fL Mean Corpuscular Hemoglobin 30.9 pg Mean Corpuscular Hemoglobin Concent 34.7 g/dl Platelet Count 238 K/uL Mean Platelet Volume 8.5 fL Neutrophils (%) (Auto) 68.9 % Lymphocytes (%) (Auto) 18.1 % Monocytes (%) (Auto) 12.0 % Eosinophils (%) (Auto) 0.3 % Basophils (%) (Auto) 0.1 % Neutrophils # (Auto) 7.38 K/uL Lymphocytes # (Auto) 1.93 K/uL Monocytes # (Auto) 1.28 K/uL Eosinophils # (Auto) 0.03 K/uL Basophils # (Auto) 0.01 K/uL RDW Standard Deviation 41.7 fL RDW Coefficient of Variation 12.8 % Immature Granulocyte % (Auto) 0.6 % Immature Granulocyte # (Auto) 0.06 K/uL Potassium Level 4.6 mmol/L Chloride Level 106 mmol/L Carbon Dioxide Level 28 mmol/L Anion Gap 6.0 mmol/L Blood Urea Nitrogen 15 mg/dl Creatinine 0.67 mg/dl Est Creatinine Clear Calc Drug Dose 86.6 ml/min Estimated GFR () 107.7 Estimated GFR (Non- 92.9 BUN/Creatinine Ratio 22.0 Random Glucose 101 mg/dl Calcium Level 8.0 mg/dl Magnesium Level 2.3 mg/dl Patient Name: SHONA HOLLAND Unit Number: [id number] Dictated: 09/17/171915 Transcribed: 09/17/171915 EV Printed Date/Time: [~ rep prt dt]/[~ rep prt tm] [~ rep ct labl] - [~ rep ct ivnm] [facility] [place] [address] Dictated: 09/17/171915 Transcribed: 09/17/171915 EV Printed Date/Time: [~ rep prt dt]/[~ rep prt tm] [~ rep ct labl] - [~ rep ct ivnm] CT SCAN OF THE ABDOMEN AND PELVIS WITH IV CONTRAST CLINICAL HISTORY: Left lower quadrant abdominal pain. COMPARISON STUDY: Abdominal CT dated 07/17/2016. TECHNIQUE: Following the IV administration of 92 cc of Optiray 320, CT scan of the abdomen and pelvis is performed from the lung bases to the proximal femora. Images are reviewed in the axial, sagittal, and coronal planes. IV contrast was administered without complication. A dose lowering technique was utilized adhering to the principles of ALARA. The examination is degraded by large body habitus, and by streak artifact from the body wall abutting the CT gantry. CT DOSE: 937.58 mGy.cm FINDINGS: Lung bases: The heart is top normal in size and without pericardial effusion. A calcified granuloma is seen in the lingula. The lung bases are otherwise clear noting dependent atelectasis. There is a small hiatal hernia. Liver: The contrast-enhanced liver is enlarged, measuring 20 cm in length. The liver demonstrates diffusely diminished attenuation consistent with hepatic steatosis. There is no intrahepatic biliary ductal dilatation. The hepatic veins and portal veins are patent. Gallbladder: Unremarkable. Spleen: Normal in size and attenuation. Pancreas: Unremarkable. Adrenal glands: Unremarkable. Kidneys: The contrast enhanced kidneys are normal in size and without hydronephrosis. The kidneys enhance symmetrically. Abdominal vasculature: The abdominal aorta is normal in course and caliber noting mild to moderate atherosclerotic calcification. Bowel: There is moderate colonic diverticulosis. There is wall thickening with pericolonic inflammation and fluid seen involving the sigmoid colon consistent with acute diverticulitis. There is no evidence of diverticular abscess. Fecal retention is noted in the right colon. No bowel obstruction is seen. The appendix is not visualized. Peritoneum: There is no intraperitoneal free air or abdominal ascites. There is a small fat-containing umbilical hernia. Lymphadenopathy: None. Pelvic viscera: The bladder is decompressed and not well evaluated. The uterus is surgically absent. No adnexal lesion is seen. Skeletal structures: The skeletal structures are osteopenic. There is mild lumbosacral spondylosis and scoliosis. Postoperative change is noted at L5-S1. No lytic or blastic lesions are seen. IMPRESSION: 1. Findings are consistent with acute sigmoid diverticulitis. No intraperitoneal free air is seen and there is no evidence of abscess. 2. Hepatomegaly and hepatic steatosis. 3. Additional findings as above. Electronically signed by: Frank Mendez M.D. 09/17/2017 7:22 PM Dictated Date/Time: 09/17/2017 7:16 PM The status of this report is Signed. Draft = Not yet reviewed or approved by Radiologist. Signed = Reviewed and approved by Radiologist. <AttendingPhy></AttendingPhy> <FamilyPhy>Cj Rico III, M.D.</FamilyPhy> < PrimaryPhy>Cj Rico III, M.D.</PrimaryPhy> <UnitNumber>[id number]</ UnitNumber> <VisitNumber>[id number]</VisitNumber> <PatientName>SHONA HOLLAND< /PatientName> <DateOfBirth>1955</DateOfBirth> <Location>C.EDB</Location> < ServiceDate>09/17/17</ServiceDate> <MNE>ESINDI</MNE> <OrderingPhy>Navi Jordan MD</OrderingPhy> <OrderingPhyMNE>f rep ord dr mosher</OrderingPhyMNE> < DictatingPhyMNE>f rep dict dr mosehr</DictatingPhyMNE> <CCListMNE>f rep ct vidhi</ CCListMNE> <AdmittingPhyMNE>f pt admit dr mosher</AdmittingPhyMNE> <AttendingPhyMNE >f pt attend dr mosher</AttendingPhyMNE> <ConsultingPhyMNE>f pt consult dr mosher</ConsultingPhyMNE> <FamilyPhyMNE>f pt fam dr mosher</FamilyPhyMNE> <OtherPhyMNE>f pt other dr mosher</OtherPhyMNE> < PrimaryPhyMNE>f pt prim care dr mosher</PrimaryPhyMNE> <ReferringPhyMNE>f pt referring dr mosher</ReferringPhyMNE> Assessment & Plan Patient with recurrent acute diverticulitis with multiple drug allergies. She thinks she has taken cephalexin safely in the past, so I have elected to change patient to IV ertapenem 1 g daily. Will watch for any type of reaction. Will follow awaiting surgical follow-up.
--- NOTE | 2017-09-18 11:54 | Gastrointestinal Consultation ---
Gastrointestinal Consultation Date of Consultation: Sep 18, 2017 Attending Physician: Rickey Consulting Physician: Gonzalez Reason for Consultation: recurrent diverticulitis History of Present Illness Patient is a 62 year old female w/ history of recurrent diverticulitis, gastroparesis, paroxysmal a fib and others listed below who presented through the ED for evaluation of diarrhea, one episode of rectal bleeding and LLQ pain - -> CT w/ evidence of acute diverticulitis, no free or abscess identified. Pt tells me she has been having vague GI complaints (nausea, diarrhea, upset stomach) x 1 week, which acutely worsened about two days with severe LLQ abdominal pain, vomiting x 2 episodes and 1 episode of rectal bleeding. She has seen surgery in the past, Dr. Hopkins, who had suggested prior to considering surgical intervention pt would need to clear c.diff infection and get a repeat colonoscopy. Does not appear pt kept follow up appt with general surgery. She has had a few bouts of diverticulitis since evaluated by surgery in 2014. Today, symptoms are mildly improved, no nausea, vomiting. Still with LLQ pain. No BM since admission, no evidence of bleeding since admission. CT ABD/Pelvis 09/17/17: Findings are consistent with acute sigmoid diverticulitis. No intraperitoneal free air is seen and there is no evidence of abscess. Hepatomegaly and hepatic steatosis. Additional findings as above. Colonoscopy 09/11/16: Non-thrombosed external hemorrhoids found on digital rectal exam. The examined portion of the ileum was normal. Normal mucosa in the entire examined colon. Biopsied. Fluid aspiration performed. One 5 mm polyp in the descending colon. Resected and retrieved. Mild diverticulosis in the ascending colon. Mild diverticulosis in the sigmoid colon and in the descending colon. Internal hemorrhoids. The examination was otherwise normal. Past Medical/Surgical History Medical Problems: (1) Flu Status: Acute (2) Viral URI Status: Acute (3) Wheezing Status: Acute Past Medical History: spinal stenosis, recurrent diverticulitis, gastroparesis, GERD dyslipidemia, Hypothyroidism, IBS, paroxysmal a fib, asthma, HTN, Past Surgical History: s/p appendectomy s/p cervical discectomy + fusion s/p hysterectomy s/p lumbar hemilaminectomy s/p spine surgery colonoscopy Family History No significant family history Social History Smoking Status: Former Smoker Alcohol Use: occasionally Marital Status: Housing Status: lives with family Allergies Coded Allergies: Fentanyl (Verified Allergy, Unknown, itching, 09/17/17) Levofloxacin (Verified Allergy, Unknown, CAN'T TAKE WITH FLECAINIDE, 09/17) gmg Penicillins (Verified Allergy, Unknown, RASH, 09/17/17) ALLERGY IS RASH Sulfa Drugs (Verified Allergy, Unknown, 09/17/17) Replaces SULFAMETHOXAZ Sulfamethoxazole (Verified Allergy, Unknown, 09/17/17) Replaces SULFAMETHOXAZ Trimethoprim (Verified Allergy, Unknown, 09/17/17) Replaces SULFAMETHOXAZ Metronidazole (Verified Adverse Reaction, Unknown, 0, 09/17/17) GI upset w PO Flagyl; px can tolerate IV Flagyl Current Medications Home Meds and Scripts Medications Dose Route/Sig Max Daily Dose Days Date Category Ambien (Zolpidem Tartrate) 10 Mg Tab 10 Mg PO HS 01/05/17 Reported Valtrex (Valacyclovir Hcl) 1 Gm Tab 1,000 Mg PO DAILY PRN 01/05/17 Reported Fish Oil ([place]-3 Fatty Acids) 1 Cap Cap 1 Cap PO DAILY 01/05/17 Reported Vitamin D3 (Cholecalciferol) 1,000 Unit Tab 1 Tab PO DAILY 90 01/05/17 Reported Proventil 0.083% 2.5MG/3ML (Albuterol Sulf) 2.5 Mg/3 Ml Nebu 2.5 Mg INH Q4 PRN 01/05/17 Reported Zantac (Ranitidine HCl) 150 Mg Tab 150 Mg PO PRN 05/25/15 Reported Prinivil (Lisinopril) 20 Mg Tab 20 Mg PO QAM 03/16/14 Reported Synthroid (Levothyroxine Sodium) 88 Mcg Tab 88 Mcg PO QAM 03/16/14 Reported Review of Systems Constitutional: No fever, No chills Respiratory: No cough Cardiac: No chest pain Abdomen: + pain, + constipation, No nausea, No vomiting, No diarrhea Physical Exam Date Time Temp Pulse Resp B/P (MAP) Pulse Ox O2 Delivery O2 Flow Rate FiO2 09/18/17 08:10 Room Air 09/18/17 07:24 37.2 69 18 134/79 (97) 95 09/18/17 00:00 96 Room Air 09/17/17 22:30 73 20 107/73 96 Room Air 09/17/17 22:13 37.0 73 20 107/73 96 Room Air 09/17/17 21:14 87 20 141/71 94 Room Air 09/17/17 20:26 85 09/17/17 20:00 85 145/84 09/17/17 18:27 93 20 145/84 93 Room Air 09/17/17 17:33 37.0 100 20 159/84 95 Room Air General Appearance: no apparent distress Eyes: PERRL ENT: hearing grossly normal Neck: supple Respiratory/Chest: lungs clear, normal breath sounds Cardiovascular: regular rate, rhythm Abdomen: normal bowel sounds, soft, no organomegaly, no pulsatile mass, + tenderness Neurologic/Psych: alert, normal mood/affect, oriented x 3 Skin: normal color, warm/dry Laboratory Results Last 24 Hours Test 09/17/17 18:10 09/17/17 18:19 09/17/17 18:40 09/17/17 21:42 White Blood Count 20.32 K/uL Red Blood Count 4.95 M/uL Hemoglobin 16.2 g/dL 15.0 g/dL Hematocrit 44.0 % 42.0 % Mean Corpuscular Volume 88.9 fL Mean Corpuscular Hemoglobin 32.7 pg Mean Corpuscular Hemoglobin Concent 36.8 g/dl Platelet Count 329 K/uL Mean Platelet Volume 8.9 fL Neutrophils (%) (Auto) 76.1 % Lymphocytes (%) (Auto) 13.0 % Monocytes (%) (Auto) 9.7 % Eosinophils (%) (Auto) 0.2 % Basophils (%) (Auto) 0.0 % Neutrophils # (Auto) 15.44 K/uL Lymphocytes # (Auto) 2.64 K/uL Monocytes # (Auto) 1.98 K/uL Eosinophils # (Auto) 0.05 K/uL Basophils # (Auto) 0.01 K/uL RDW Standard Deviation 41.4 fL RDW Coefficient of Variation 12.8 % Immature Granulocyte % (Auto) 1.0 % Immature Granulocyte # (Auto) 0.20 K/uL Sodium Level 132 mmol/L Potassium Level 4.2 mmol/L Chloride Level 102 mmol/L Carbon Dioxide Level 21 mmol/L Anion Gap 9.0 mmol/L 16.0 mmol/L Blood Urea Nitrogen 19 mg/dl Creatinine 0.80 mg/dl Est Creatinine Clear Calc Drug Dose 70.4 ml/min Estimated GFR () 90.3 Estimated GFR (Non- 77.9 BUN/Creatinine Ratio 24.2 Random Glucose 123 mg/dl Calcium Level 9.0 mg/dl Magnesium Level 1.7 mg/dl Total Bilirubin 0.7 mg/dl Direct Bilirubin 0.1 mg/dl Aspartate Amino Transf (AST/SGOT) 14 U/L Alanine Aminotransferase (ALT/SGPT) 33 U/L Alkaline Phosphatase 82 U/L Total Protein 7.2 gm/dl Albumin 3.7 gm/dl Lipase 119 U/L Bedside Hemoglobin 16.7 g/dl Bedside Hematocrit 49 % Bedside Sodium 132 mEq/L Bedside Potassium 4.2 mEq/L Bedside Chloride 101 mEq/L Bedside Total CO2 20 mEq/l Bedside Blood Urea Nitrogen 20 mg/dl Bedside Creatinine 0.7 mg/dl Bedside Glucose (other) 123 mg/dl Bedside Ionized Calcium (Reginaldo) 1.13 mmol/l Urine Color YELLOW Urine Appearance CLEAR Urine pH 5.0 Urine Specific [place] 1.026 Urine Protein NEG Urine Glucose (UA) NEG Urine Ketones TRACE Urine Occult Blood NEG Urine Nitrite NEG Urine Bilirubin NEG Urine Urobilinogen NEG Urine Leukocyte Esterase NEG Test 09/17/17 23:16 09/18/17 05:51 Sodium Level 133 mmol/L 140 mmol/L Thyroid Stimulating Hormone (TSH) 5.070 uIu/ml Hepatitis C Antibody Screen NEG White Blood Count 10.69 K/uL Red Blood Count 4.46 M/uL Hemoglobin 13.8 g/dL Hematocrit 39.8 % Mean Corpuscular Volume 89.2 fL Mean Corpuscular Hemoglobin 30.9 pg Mean Corpuscular Hemoglobin Concent 34.7 g/dl Platelet Count 238 K/uL Mean Platelet Volume 8.5 fL Neutrophils (%) (Auto) 68.9 % Lymphocytes (%) (Auto) 18.1 % Monocytes (%) (Auto) 12.0 % Eosinophils (%) (Auto) 0.3 % Basophils (%) (Auto) 0.1 % Neutrophils # (Auto) 7.38 K/uL Lymphocytes # (Auto) 1.93 K/uL Monocytes # (Auto) 1.28 K/uL Eosinophils # (Auto) 0.03 K/uL Basophils # (Auto) 0.01 K/uL RDW Standard Deviation 41.7 fL RDW Coefficient of Variation 12.8 % Immature Granulocyte % (Auto) 0.6 % Immature Granulocyte # (Auto) 0.06 K/uL Potassium Level 4.6 mmol/L Chloride Level 106 mmol/L Carbon Dioxide Level 28 mmol/L Anion Gap 6.0 mmol/L Blood Urea Nitrogen 15 mg/dl Creatinine 0.67 mg/dl Est Creatinine Clear Calc Drug Dose 86.6 ml/min Estimated GFR () 107.7 Estimated GFR (Non- 92.9 BUN/Creatinine Ratio 22.0 Random Glucose 101 mg/dl Calcium Level 8.0 mg/dl Magnesium Level 2.3 mg/dl Impression Patient is a 62 [address] with CT evidence of acute diverticulitis without free air or abscess, she has had numerous bouts of diverticulitis, upwards of 10 in the past 10 years. She was evaluated by general surgery in 2014 who had suggested clearance of c.diff infection and repeat colonoscopy before surgical intervention. She has not followed up with general surgery since. Plan - Stool culture and stool for c.diff if loose stool return - pt has history of c.diff - Antiemetics PRN - Analgesia PRN - Numerous drug allergies - ABX per infectious disease - Repeat colonoscopy as outpatient in 6-8 weeks - Consider repeat general surgery consult GI to sign off, please call with any questions, concerns. I saw and evaluated the patient. She has a history of recurrent diverticulitis with small volume hematochezia. Of note her last colonoscopy was about one year ago notable for diverticulosis of the left colon and in the ascending colon. Physical examination No obvious distress Left-sided abdominal discomfort Impression: Patient with a history of recurrent sigmoid diverticulitis now seems to be slowly improving on antibiotics. I would recommend addition of Bentyl 10 mg 3 times daily. We should plan for repeat colonoscopy in about 6-8 weeks and a repeat evaluation by general surgery to determine if sigmoid colectomy should be offered. Please call with any questions or concerns during the remainder of the admission
[2017-09-18 12:18] LABS: HEMATOCRIT 41.7 % (37-47)
[2017-09-18] MEDS: ERTAPENEM IV 1 GM in SODIUM CHLOR 0.9% AD-VAN 50ML 50 ML IV SCH (12:29)
[2017-09-18] MEDS: KETOROLAC TROMETHAMINE 30 MG/ML VIAL IV PRN (12:34)
[2017-09-18 15:09] VITALS: BP 120/80; PULSE 71; TEMP 37.1; O2SAT 96
[2017-09-18 16:00] VITALS: O2SAT 96
[2017-09-18] MEDS: HYDROmorphone INJ 0.5 MG/0.5 ML SYR IV PRN (16:36)
--- NOTE | 2017-09-18 17:12 | Progress Note ---
Medicine Progress Note Date & Time of Visit: Sep 18, 2017 at 12:52. Subjective Pt was seen and examined Sitting at the edge of the bed with no distress Pt said that her pain improved She said that the last time she vomited was yesterday She seems to tolerated Clear liquid diet Denies any fever, chest pain, palpitation, dizziness and SOB Objective Last 8 Hrs Date Time Temp Pulse Resp B/P (MAP) Pulse Ox O2 Delivery O2 Flow Rate FiO2 09/18/17 16:00 96 Room Air 09/18/17 15:09 37.1 71 16 120/80 (93) 96 Room Air Physical Exam: General- No acute distress Head- atraumatic Eyes- PERRL, EOMI ENT- oropharynx clear Neck- supple, no JVD Lungs- clear to auscultation Heart- regular rhythm; no murmur Abdomen- hyperactive bowel sound, +tender with palpation Extremities-no calf tenderness Neuro- alert, oriented x 3; PERRL, EOMI; no facial palsy Skin- warm & dry Laboratory Results: Last 24 Hours Test 09/17/17 18:10 09/17/17 18:19 09/17/17 18:40 09/17/17 21:42 White Blood Count 20.32 K/uL Red Blood Count 4.95 M/uL Hemoglobin 16.2 g/dL 15.0 g/dL Hematocrit 44.0 % 42.0 % Mean Corpuscular Volume 88.9 fL Mean Corpuscular Hemoglobin 32.7 pg Mean Corpuscular Hemoglobin Concent 36.8 g/dl Platelet Count 329 K/uL Mean Platelet Volume 8.9 fL Neutrophils (%) (Auto) 76.1 % Lymphocytes (%) (Auto) 13.0 % Monocytes (%) (Auto) 9.7 % Eosinophils (%) (Auto) 0.2 % Basophils (%) (Auto) 0.0 % Neutrophils # (Auto) 15.44 K/uL Lymphocytes # (Auto) 2.64 K/uL Monocytes # (Auto) 1.98 K/uL Eosinophils # (Auto) 0.05 K/uL Basophils # (Auto) 0.01 K/uL RDW Standard Deviation 41.4 fL RDW Coefficient of Variation 12.8 % Immature Granulocyte % (Auto) 1.0 % Immature Granulocyte # (Auto) 0.20 K/uL Sodium Level 132 mmol/L Potassium Level 4.2 mmol/L Chloride Level 102 mmol/L Carbon Dioxide Level 21 mmol/L Anion Gap 9.0 mmol/L 16.0 mmol/L Blood Urea Nitrogen 19 mg/dl Creatinine 0.80 mg/dl Est Creatinine Clear Calc Drug Dose 70.4 ml/min Estimated GFR () 90.3 Estimated GFR (Non- 77.9 BUN/Creatinine Ratio 24.2 Random Glucose 123 mg/dl Calcium Level 9.0 mg/dl Magnesium Level 1.7 mg/dl Total Bilirubin 0.7 mg/dl Direct Bilirubin 0.1 mg/dl Aspartate Amino Transf (AST/SGOT) 14 U/L Alanine Aminotransferase (ALT/SGPT) 33 U/L Alkaline Phosphatase 82 U/L Total Protein 7.2 gm/dl Albumin 3.7 gm/dl Lipase 119 U/L Bedside Hemoglobin 16.7 g/dl Bedside Hematocrit 49 % Bedside Sodium 132 mEq/L Bedside Potassium 4.2 mEq/L Bedside Chloride 101 mEq/L Bedside Total CO2 20 mEq/l Bedside Blood Urea Nitrogen 20 mg/dl Bedside Creatinine 0.7 mg/dl Bedside Glucose (other) 123 mg/dl Bedside Ionized Calcium (Reginaldo) 1.13 mmol/l Urine Color YELLOW Urine Appearance CLEAR Urine pH 5.0 Urine Specific [place] 1.026 Urine Protein NEG Urine Glucose (UA) NEG Urine Ketones TRACE Urine Occult Blood NEG Urine Nitrite NEG Urine Bilirubin NEG Urine Urobilinogen NEG Urine Leukocyte Esterase NEG Test 09/17/17 23:16 09/18/17 05:51 09/18/17 11:51 Sodium Level 133 mmol/L 140 mmol/L Thyroid Stimulating Hormone (TSH) 5.070 uIu/ml Hepatitis C Antibody Screen NEG White Blood Count 10.69 K/uL Red Blood Count 4.46 M/uL Hemoglobin 13.8 g/dL 14.1 g/dL Hematocrit 39.8 % 41.7 % Mean Corpuscular Volume 89.2 fL Mean Corpuscular Hemoglobin 30.9 pg Mean Corpuscular Hemoglobin Concent 34.7 g/dl Platelet Count 238 K/uL Mean Platelet Volume 8.5 fL Neutrophils (%) (Auto) 68.9 % Lymphocytes (%) (Auto) 18.1 % Monocytes (%) (Auto) 12.0 % Eosinophils (%) (Auto) 0.3 % Basophils (%) (Auto) 0.1 % Neutrophils # (Auto) 7.38 K/uL Lymphocytes # (Auto) 1.93 K/uL Monocytes # (Auto) 1.28 K/uL Eosinophils # (Auto) 0.03 K/uL Basophils # (Auto) 0.01 K/uL RDW Standard Deviation 41.7 fL RDW Coefficient of Variation 12.8 % Immature Granulocyte % (Auto) 0.6 % Immature Granulocyte # (Auto) 0.06 K/uL Potassium Level 4.6 mmol/L Chloride Level 106 mmol/L Carbon Dioxide Level 28 mmol/L Anion Gap 6.0 mmol/L Blood Urea Nitrogen 15 mg/dl Creatinine 0.67 mg/dl Est Creatinine Clear Calc Drug Dose 86.6 ml/min Estimated GFR () 107.7 Estimated GFR (Non- 92.9 BUN/Creatinine Ratio 22.0 Random Glucose 101 mg/dl Calcium Level 8.0 mg/dl Magnesium Level 2.3 mg/dl Assessment & Plan Acute diverticulitis: Presenting on admission with LLQ abd pain associated with one episode of rectal bleed and nausea/vominting CT abd/pelvis showed acute sigmoid diverticulitis. No evidence of abscess Elevated Leukocytosis on admission 20.3 Abx was changed to Ertapenem by ID due to pt multiple allergic to abx Continue Clear liquid diet Pain control GI on board Recommended colonoscopy in 6 to 8 weeks and surgery consult Bentyl 10 mg added Paroxysmal A Fib: H/o ablation in 2008 Rate controlled On NSR LLE pain: Hx PE in 2008 U/S negative for DVT HTN: BP stable Continue home dose of Lisinopril Hypothyroidism: TSH 5.7 (elevated) Will increase Synthroid GERD: Stable Continue ranitidine Asthma, mild COPD: Continue home inhalers Stable DVT Ppx: SCDs Code status: FULL Code Consultants: Gastro Current Inpatient Medications: Current Inpatient Medications Medications (Trade) Dose Ordered Sig/Kt Route Start Time Stop Time Status Last Admin Dose Admin Ioversol (Optiray 320) 111 ml UD PRN IV 09/17/17 18:15 09/21/17 18:14 Acetaminophen (Tylenol Tab) 650 mg Q4H PRN PO 09/17/17 21:30 10/17/17 21:29 Levothyroxine Sodium (Synthroid Tab) 88 mcg DAILYBB PO 09/18/17 06:30 10/18/17 06:29 09/18/17 06:22 88 MCG Lisinopril (Zestril Tab) 20 mg QAM PO 09/18/17 09:00 10/18/17 08:59 09/18/17 09:02 20 MG Ranitidine HCl (zANTac TAB) 150 mg DAILY PRN PO 09/17/17 21:30 10/17/17 21:29 Zolpidem Tartrate (Ambien Tab) 10 mg HS PO 09/17/17 23:00 10/17/17 22:59 09/17/17 23:28 10 MG Ketorolac Tromethamine (Toradol Inj) 30 mg Q6H PRN IV 09/17/17 21:30 09/22/17 21:29 09/18/17 12:34 30 MG Tramadol HCl (Ultram Tab) not relieved by tylenol @ Q6H PRN PO 09/17/17 21:30 10/17/17 21:29 Ondansetron HCl (Zofran Inj) 4 mg Q6H PRN IV 09/17/17 21:30 10/17/17 21:29 09/18/17 00:07 4 MG Hydromorphone HCl (Dilaudid Inj) 0.5 mg Q3H PRN IV 09/17/17 21:30 10/01/17 21:29 09/18/17 16:36 0.5 MG Lorazepam 0.5 mg/ Syringe 1 ml @ 1 mls/min Q4H PRN IV 09/18/17 00:15 10/18/17 00:14 Ertapenem 1 gm/ Sodium Chloride 50 ml @ 120 mls/hr Q24H IV 09/18/17 11:00 09/28/17 10:59 09/18/17 12:29 120 MLS/HR Dicyclomine HCl (Bentyl Tab) 20 mg BID PO 09/18/17 21:00 10/18/17 20:59
[2017-09-18 17:58] LABS: HEMATOCRIT 40.8 % (37-47)
[2017-09-18] MEDS: DICYCLOMINE HCL 20 MG TAB PO SCH (18:22)
[2017-09-18] MEDS: ZOLPIDEM TARTRATE 10 MG TAB PO SCH (22:24)
[2017-09-19 00:47] VITALS: BP 116/78; PULSE 67; TEMP 36.9; O2SAT 94
[2017-09-19] MEDS: LEVOTHYROXINE 88 MCG TAB PO SCH (06:11)
[2017-09-19 06:27] LABS: BASO % 0.1 %; BASO ABS # 0.01 K/uL (0-0.2); COMPLETE YES; EOS % 1.6 %; IG% 0.6 %; LYMPH % 18.9 %; LYMPH ABS # 1.65 K/uL (1.2-3.4); MEAN CELL VOLUME 90.3 fL (80-100); MEAN CORPUSCULAR HEMOGLOBIN 30.4 pg (25-34); MEAN CORPUSCULAR HGB CONC 33.7 g/dl (32-36); MEAN PLATELET VOLUME 8.6 fL (7.4-10.4); MONO % 11.9 %; NEUT % 66.9 %; PLATELET COUNT 260 K/uL (130-400); RED BLOOD COUNT 4.54 M/uL (4.2-5.4); WHITE BLOOD COUNT 8.73 K/uL (4.8-10.8)
[2017-09-19 07:08] VITALS: BP 101/62; PULSE 56; TEMP 36.7; O2SAT 94
[2017-09-19] MEDS: LISINOPRIL 20 MG TAB PO SCH (07:36)
[2017-09-19] MEDS: DICYCLOMINE HCL 20 MG TAB PO SCH ×2 (07:36→20:08)
[2017-09-19] MEDS: ERTAPENEM IV 1 GM in SODIUM CHLOR 0.9% AD-VAN 50ML 50 ML IV SCH (10:51)
[2017-09-19] MEDS: HYDROmorphone INJ 0.5 MG/0.5 ML SYR IV PRN (12:43)
[2017-09-19] MEDS ORDERED: NURSING VERBAL MED ORDER ONE (14:00)
[2017-09-19] MEDS ORDERED: POLYETHYLENE (MIRALAX) 17 GM PACK PO ONE (14:00)
[2017-09-19 15:01] VITALS: BP 112/73; PULSE 59; TEMP 36.7; O2SAT 96
[2017-09-19] MEDS: KETOROLAC TROMETHAMINE 30 MG/ML VIAL IV PRN (15:11)
[2017-09-19 15:51] VITALS: O2SAT 96
--- NOTE | 2017-09-19 17:08 | Progress Note ---
Medicine Progress Note Date & Time of Visit: Sep 19, 2017 at 10:01. Subjective Pt was seen and examined Sitting in chair with no distress Pt said that she continue to have abdominal pain she tolerated clear liquid diet Denies any chest pain, palpitation, dizziness and SOB Objective Last 8 Hrs Date Time Temp Pulse Resp B/P (MAP) Pulse Ox O2 Delivery O2 Flow Rate FiO2 09/19/17 15:51 96 Room Air 09/19/17 15:01 36.7 59 18 112/73 (86) 96 Room Air Physical Exam: General- No acute distress Head- atraumatic Eyes- PERRL, EOMI ENT- oropharynx clear Neck- supple, no JVD Lungs- clear to auscultation Heart- regular rhythm; no murmur Abdomen- hyperactive bowel sound, +tender with palpation Extremities-no calf tenderness Neuro- alert, oriented x 3; PERRL, EOMI; no facial palsy Skin- warm & dry Laboratory Results: Last 24 Hours Test 09/18/17 17:48 09/19/17 06:09 Hemoglobin 14.1 g/dL 13.8 g/dL Hematocrit 40.8 % 41.0 % White Blood Count 8.73 K/uL Red Blood Count 4.54 M/uL Mean Corpuscular Volume 90.3 fL Mean Corpuscular Hemoglobin 30.4 pg Mean Corpuscular Hemoglobin Concent 33.7 g/dl Platelet Count 260 K/uL Mean Platelet Volume 8.6 fL Neutrophils (%) (Auto) 66.9 % Lymphocytes (%) (Auto) 18.9 % Monocytes (%) (Auto) 11.9 % Eosinophils (%) (Auto) 1.6 % Basophils (%) (Auto) 0.1 % Neutrophils # (Auto) 5.84 K/uL Lymphocytes # (Auto) 1.65 K/uL Monocytes # (Auto) 1.04 K/uL Eosinophils # (Auto) 0.14 K/uL Basophils # (Auto) 0.01 K/uL RDW Standard Deviation 42.4 fL RDW Coefficient of Variation 12.8 % Immature Granulocyte % (Auto) 0.6 % Immature Granulocyte # (Auto) 0.05 K/uL Assessment & Plan Acute diverticulitis: Presenting on admission with LLQ abd pain associated with one episode of rectal bleed and nausea/vominting CT abd/pelvis showed acute sigmoid diverticulitis. No evidence of abscess Elevated Leukocytosis on admission 20.3 Abx was changed to Ertapenem by ID due to pt multiple allergic to abx Will advanced diet to full liquid Continue pain control GI on board Recommended colonoscopy in 6 to 8 weeks Will consult surgery Bentyl 10 mg added Paroxysmal A Fib: H/o ablation in 2008 Rate controlled On NSR LLE pain: Hx PE in 2008 U/S negative for DVT HTN: BP stable Continue home dose of Lisinopril Hypothyroidism: TSH 5.7 (elevated) complaint of tiredness and weight gain in the last few week increased Synthroid to 100mcg Check TSH in 4- 6 weeks GERD: Stable Continue ranitidine Asthma, mild COPD: Continue home inhalers Stable DVT Ppx: SCDs Code status: FULL Code Consultants: Gastro Current Inpatient Medications: Current Inpatient Medications Medications (Trade) Dose Ordered Sig/Kt Route Start Time Stop Time Status Last Admin Dose Admin Ioversol (Optiray 320) 111 ml UD PRN IV 09/17/17 18:15 09/21/17 18:14 Acetaminophen (Tylenol Tab) 650 mg Q4H PRN PO 09/17/17 21:30 10/17/17 21:29 Levothyroxine Sodium (Synthroid Tab) 88 mcg DAILYBB PO 09/18/17 06:30 10/18/17 06:29 09/19/17 06:11 88 MCG Lisinopril (Zestril Tab) 20 mg QAM PO 09/18/17 09:00 10/18/17 08:59 09/19/17 07:36 20 MG Ranitidine HCl (zANTac TAB) 150 mg DAILY PRN PO 09/17/17 21:30 10/17/17 21:29 Zolpidem Tartrate (Ambien Tab) 10 mg HS PO 09/17/17 23:00 10/17/17 22:59 09/18/17 22:24 10 MG Ketorolac Tromethamine (Toradol Inj) 30 mg Q6H PRN IV 09/17/17 21:30 09/22/17 21:29 09/19/17 15:11 30 MG Tramadol HCl (Ultram Tab) not relieved by tylenol @ Q6H PRN PO 09/17/17 21:30 10/17/17 21:29 Ondansetron HCl (Zofran Inj) 4 mg Q6H PRN IV 09/17/17 21:30 10/17/17 21:29 09/18/17 00:07 4 MG Hydromorphone HCl (Dilaudid Inj) 0.5 mg Q3H PRN IV 09/17/17 21:30 10/01/17 21:29 09/19/17 12:43 0.5 MG Lorazepam 0.5 mg/ Syringe 1 ml @ 1 mls/min Q4H PRN IV 09/18/17 00:15 10/18/17 00:14 Ertapenem 1 gm/ Sodium Chloride 50 ml @ 120 mls/hr Q24H IV 09/18/17 11:00 09/28/17 10:59 09/19/17 10:51 120 MLS/HR Dicyclomine HCl (Bentyl Tab) 20 mg BID PO 09/18/17 21:00 10/18/17 20:59 09/19/17 07:36 20 MG
--- NOTE | 2017-09-19 18:27 | Infectious Disease Progress Nt ---
Progress Note Date of Service Sep 19, 2017. Subjective Pt evaluation today including: conversation w/ patient, physical exam, chart review, lab review, review of studies, conversation w/ functional consultant, review of inpatient medication list Still with some abdominal pain. Remains afebrile. Tolerating ertapenem without apparent difficulty. All Other Systems: Reviewed and Negative Medications Current Inpatient Medications Medications (Trade) Dose Ordered Sig/Kt Route Start Time Stop Time Status Last Admin Dose Admin Ioversol (Optiray 320) 111 ml UD PRN IV 09/17/17 18:15 09/21/17 18:14 Acetaminophen (Tylenol Tab) 650 mg Q4H PRN PO 09/17/17 21:30 10/17/17 21:29 Lisinopril (Zestril Tab) 20 mg QAM PO 09/18/17 09:00 10/18/17 08:59 09/19/17 07:36 20 MG Ranitidine HCl (zANTac TAB) 150 mg DAILY PRN PO 09/17/17 21:30 10/17/17 21:29 Zolpidem Tartrate (Ambien Tab) 10 mg HS PO 09/17/17 23:00 10/17/17 22:59 09/18/17 22:24 10 MG Ketorolac Tromethamine (Toradol Inj) 30 mg Q6H PRN IV 09/17/17 21:30 09/22/17 21:29 09/19/17 15:11 30 MG Tramadol HCl (Ultram Tab) not relieved by tylenol @ Q6H PRN PO 09/17/17 21:30 10/17/17 21:29 Ondansetron HCl (Zofran Inj) 4 mg Q6H PRN IV 09/17/17 21:30 10/17/17 21:29 09/18/17 00:07 4 MG Hydromorphone HCl (Dilaudid Inj) 0.5 mg Q3H PRN IV 09/17/17 21:30 10/01/17 21:29 09/19/17 12:43 0.5 MG Lorazepam 0.5 mg/ Syringe 1 ml @ 1 mls/min Q4H PRN IV 09/18/17 00:15 10/18/17 00:14 Ertapenem 1 gm/ Sodium Chloride 50 ml @ 120 mls/hr Q24H IV 09/18/17 11:00 09/28/17 10:59 09/19/17 10:51 120 MLS/HR Dicyclomine HCl (Bentyl Tab) 20 mg BID PO 09/18/17 21:00 10/18/17 20:59 09/19/17 07:36 20 MG Levothyroxine Sodium (Synthroid Tab) 100 mcg DAILYBB PO 09/20/17 06:30 10/18/17 06:29 Objective Vital Signs Date Time Temp Pulse Resp B/P (MAP) Pulse Ox O2 Delivery O2 Flow Rate FiO2 09/19/17 15:51 96 Room Air 09/19/17 15:01 36.7 59 18 112/73 (86) 96 Room Air 09/19/17 08:15 Room Air 09/19/17 07:08 36.7 56 18 101/62 (75) 94 09/19/17 00:47 36.9 67 20 116/78 (91) 94 Room Air 09/19/17 00:00 Room Air Physical Exam General Appearance: WD/WN, no apparent distress Eyes: normal inspection, EOMI, sclerae normal ENT: normal ENT inspection, + pertinent finding (Thrush) Neck: supple, no adenopathy, trachea midline Respiratory/Chest: chest non-tender, lungs clear, normal breath sounds, no respiratory distress Cardiovascular: regular rate, rhythm, no gallop, no murmur Abdomen: normal bowel sounds, soft, no organomegaly, + tenderness (Left lower quadrant) Extremities: non-tender, no calf tenderness Neurologic/Psychiatric: alert, oriented x 3 Skin: normal color, warm/dry, no rash Lymphatic: no adenopathy Laboratory Results Last 24 Hours Test 09/19/17 06:09 White Blood Count 8.73 K/uL Red Blood Count 4.54 M/uL Hemoglobin 13.8 g/dL Hematocrit 41.0 % Mean Corpuscular Volume 90.3 fL Mean Corpuscular Hemoglobin 30.4 pg Mean Corpuscular Hemoglobin Concent 33.7 g/dl Platelet Count 260 K/uL Mean Platelet Volume 8.6 fL Neutrophils (%) (Auto) 66.9 % Lymphocytes (%) (Auto) 18.9 % Monocytes (%) (Auto) 11.9 % Eosinophils (%) (Auto) 1.6 % Basophils (%) (Auto) 0.1 % Neutrophils # (Auto) 5.84 K/uL Lymphocytes # (Auto) 1.65 K/uL Monocytes # (Auto) 1.04 K/uL Eosinophils # (Auto) 0.14 K/uL Basophils # (Auto) 0.01 K/uL RDW Standard Deviation 42.4 fL RDW Coefficient of Variation 12.8 % Immature Granulocyte % (Auto) 0.6 % Immature Granulocyte # (Auto) 0.05 K/uL Assessment and Plan Patient with recurrent acute diverticulitis with multiple drug allergies. She thinks she has taken cephalexin safely in the past, so I have elected to change patient to IV ertapenem 1 g daily. would recommend 10-14 days of therapy, and would like to see the patient in follow-up as outpatient prior to discontinuation of antibiotics. Fluconazole added for oral candidiasis.
--- NOTE | 2017-09-19 20:29 | Medical Consult ---
Consultation Date of Consultation: Sep 19, 2017. Attending Physician: Nohelia Lang M.D. Reason for Consultation: recurrent diverticulitis History of Present Illness 62 yr old woman with recurrent diverticulitis. Has had at least 10 episodes. This is one of the "worst". She was admitted with left sided abdominal pain, diarrhea and one episode of rectal bleeding. Was admitted and started on IV abx. She notes some improvement in symptoms but feels very bloated. No bowel movement since Sunday. On full liquids but has no appetite. She is wondering if this is esophageal candidiasis as she was diagnosed with this in the past after steroids and she has been using flonase and had a steroid injection in a joint recently. Feels as though this may be contributing to her current symptoms. She saw Dr. Hopkins in the past. She felt that he was reluctant to recommend surgery. Wondering about colorectal f/u. Past Medical/Surgical History Medical Problems: (1) Flu Status: Acute (2) Viral URI Status: Acute (3) Wheezing Status: Acute Past Medical History: spinal stenosis, recurrent diverticulitis, gastroparesis, GERD dyslipidemia, Hypothyroidism, IBS, paroxysmal a fib, asthma, HTN, Past Surgical History: s/p appendectomy s/p cervical discectomy + fusion s/p hysterectomy s/p lumbar hemilaminectomy s/p spine surgery, colonoscopy Family History No significant family history Social History Smoking Status: Former Smoker Alcohol Use: socially (2-3 glasses of wine/week) Marital Status: Housing Status: lives with family Allergies Coded Allergies: Fentanyl (Verified Allergy, Unknown, itching, 09/17/17) Levofloxacin (Verified Allergy, Unknown, CAN'T TAKE WITH FLECAINIDE, 09/17) gmg Penicillins (Verified Allergy, Unknown, RASH, 09/17/17) ALLERGY IS RASH Sulfa Drugs (Verified Allergy, Unknown, 09/17/17) Replaces SULFAMETHOXAZ Sulfamethoxazole (Verified Allergy, Unknown, 09/17/17) Replaces SULFAMETHOXAZ Trimethoprim (Verified Allergy, Unknown, 09/17/17) Replaces SULFAMETHOXAZ Metronidazole (Verified Adverse Reaction, Unknown, 0, 09/17/17) GI upset w PO Flagyl; px can tolerate IV Flagyl Current Inpatient Medications Current Inpatient Medications Medications (Trade) Dose Ordered Sig/Kt Route Start Time Stop Time Status Last Admin Dose Admin Ioversol (Optiray 320) 111 ml UD PRN IV 09/17/17 18:15 09/21/17 18:14 Acetaminophen (Tylenol Tab) 650 mg Q4H PRN PO 09/17/17 21:30 10/17/17 21:29 Lisinopril (Zestril Tab) 20 mg QAM PO 09/18/17 09:00 10/18/17 08:59 09/19/17 07:36 20 MG Ranitidine HCl (zANTac TAB) 150 mg DAILY PRN PO 09/17/17 21:30 10/17/17 21:29 Zolpidem Tartrate (Ambien Tab) 10 mg HS PO 09/17/17 23:00 10/17/17 22:59 09/18/17 22:24 10 MG Ketorolac Tromethamine (Toradol Inj) 30 mg Q6H PRN IV 09/17/17 21:30 09/22/17 21:29 09/19/17 15:11 30 MG Tramadol HCl (Ultram Tab) not relieved by tylenol @ Q6H PRN PO 09/17/17 21:30 10/17/17 21:29 Ondansetron HCl (Zofran Inj) 4 mg Q6H PRN IV 09/17/17 21:30 10/17/17 21:29 09/18/17 00:07 4 MG Hydromorphone HCl (Dilaudid Inj) 0.5 mg Q3H PRN IV 09/17/17 21:30 10/01/17 21:29 09/19/17 12:43 0.5 MG Lorazepam 0.5 mg/ Syringe 1 ml @ 1 mls/min Q4H PRN IV 09/18/17 00:15 10/18/17 00:14 Ertapenem 1 gm/ Sodium Chloride 50 ml @ 120 mls/hr Q24H IV 09/18/17 11:00 09/28/17 10:59 09/19/17 10:51 120 MLS/HR Dicyclomine HCl (Bentyl Tab) 20 mg BID PO 09/18/17 21:00 10/18/17 20:59 09/19/17 20:08 20 MG Levothyroxine Sodium (Synthroid Tab) 100 mcg DAILYBB PO 09/20/17 06:30 10/18/17 06:29 Review of Systems Constitutional: No weight loss, No weakness Eyes: No problem reported ENT: No problem reported Respiratory: No problem reported Cardiovascular: + problem reported (h/o a fib) Abdomen: + pain, + vomiting Musculoskeletal: + joint pain Neurologic: No problem reported Psychiatric: No problem reported Endocrine: No problem reported Hematologic / Lymphatic: No problem reported Integumentary: No problem reported Physical Exam Date Time Temp Pulse Resp B/P (MAP) Pulse Ox O2 Delivery O2 Flow Rate FiO2 09/19/17 15:51 96 Room Air 09/19/17 15:01 36.7 59 18 112/73 (86) 96 Room Air 09/19/17 08:15 Room Air 09/19/17 07:08 36.7 56 18 101/62 (75) 94 09/19/17 00:47 36.9 67 20 116/78 (91) 94 Room Air 09/19/17 00:00 Room Air General Appearance: WD/WN, no apparent distress Head: normocephalic, atraumatic Eyes: normal inspection ENT: normal ENT inspection, hearing grossly normal Neck: supple, trachea midline Cardiovascular: regular rate, rhythm, no JVD Abdomen/GI: soft, no organomegaly, + tenderness (left side with guarding), + distended Back: no muscle spasm Extremities/Musculoskelatal: no pedal edema Neurologic/Psych: alert, oriented x 3 Skin: normal color, warm/dry Laboratory Results Last 24 Hours Test 09/19/17 06:09 White Blood Count 8.73 K/uL Red Blood Count 4.54 M/uL Hemoglobin 13.8 g/dL Hematocrit 41.0 % Mean Corpuscular Volume 90.3 fL Mean Corpuscular Hemoglobin 30.4 pg Mean Corpuscular Hemoglobin Concent 33.7 g/dl Platelet Count 260 K/uL Mean Platelet Volume 8.6 fL Neutrophils (%) (Auto) 66.9 % Lymphocytes (%) (Auto) 18.9 % Monocytes (%) (Auto) 11.9 % Eosinophils (%) (Auto) 1.6 % Basophils (%) (Auto) 0.1 % Neutrophils # (Auto) 5.84 K/uL Lymphocytes # (Auto) 1.65 K/uL Monocytes # (Auto) 1.04 K/uL Eosinophils # (Auto) 0.14 K/uL Basophils # (Auto) 0.01 K/uL RDW Standard Deviation 42.4 fL RDW Coefficient of Variation 12.8 % Immature Granulocyte % (Auto) 0.6 % Immature Granulocyte # (Auto) 0.05 K/uL CT ABD/Pelvis 09/17/17: Findings are consistent with acute sigmoid diverticulitis. No intraperitoneal free air is seen and there is no evidence of abscess. Hepatomegaly and hepatic steatosis. Additional findings as above. Colonoscopy 09/11/16: Non-thrombosed external hemorrhoids found on digital rectal exam. The examined portion of the ileum was normal. Normal mucosa in the entire examined colon. Biopsied. Fluid aspiration performed. One 5 mm polyp in the descending colon. Resected and retrieved. Mild diverticulosis in the ascending colon. Mild diverticulosis in the sigmoid colon and in the descending colon. Internal hemorrhoids. The examination was otherwise normal. Assessment & Plan 62 yr old woman with recurrent diverticulitis. Once she recovers from this episode, she should f/u with either Dr. Hopkins or colorectal surgery (who come out to [facility]) for consideration of elective sigmoid resection. At this point, I have prescribed a few days of diflucan as she does have some white patches in her mouth. Explained that her bloating is also due to the lack of bowel movement since Sunday. Consider mild laxative. Would not advance diet until bowel movement.
[2017-09-19] MEDS: ZOLPIDEM TARTRATE 10 MG TAB PO SCH (22:10)
[2017-09-19 23:15] VITALS: BP 150/96; PULSE 64; TEMP 36.8; O2SAT 96
[2017-09-20] MEDS: LEVOTHYROXINE 100 MCG TAB PO SCH (06:00)
[2017-09-20 06:49] LABS: BUN/CREATININE RATIO 20.2 (10-20); CALCIUM 8.3 mg/dl (8.5-10.1); CREATININE 0.63 mg/dl (0.60-1.20); POTASSIUM 4.3 mmol/L (3.5-5.1)
[2017-09-20 07:16] VITALS: BP 147/83; PULSE 63; TEMP 36.9; O2SAT 95
[2017-09-20] MEDS: LISINOPRIL 20 MG TAB PO SCH (07:31)
[2017-09-20] MEDS: FLUCONAZOLE 100 MG TAB PO SCH (07:31)
[2017-09-20] MEDS: DICYCLOMINE HCL 20 MG TAB PO SCH ×2 (07:31→22:00)
[2017-09-20 07:32] LABS: BASO % 0.3 %; BASO ABS # 0.02 K/uL (0-0.2); COMPLETE YES; EOS % 2.9 %; HEMATOCRIT 41.8 % (37-47); IG% 0.7 %; LYMPH % 25.1 %; LYMPH ABS # 1.74 K/uL (1.2-3.4); MEAN CELL VOLUME 89.9 fL (80-100); MEAN CORPUSCULAR HEMOGLOBIN 30.5 pg (25-34); MEAN PLATELET VOLUME 9.1 fL (7.4-10.4); PLATELET COUNT 292 K/uL (130-400); RED BLOOD COUNT 4.65 M/uL (4.2-5.4); WHITE BLOOD COUNT 6.94 K/uL (4.8-10.8)
[2017-09-20] MEDS: ERTAPENEM IV 1 GM in SODIUM CHLOR 0.9% AD-VAN 50ML 50 ML IV SCH (10:47)
--- NOTE | 2017-09-20 11:05 | Surgery Progress Note ---
Surgery Progress Note Date of Service Sep 20, 2017. Subjective Feels better. Had a small bowel movement this morning. Objective Vital Signs: Date Time Temp Pulse Resp B/P (MAP) Pulse Ox O2 Delivery O2 Flow Rate FiO2 09/20/17 08:00 Room Air 09/20/17 07:16 36.9 63 18 147/83 (104) 95 Room Air 09/20/17 00:00 Room Air 09/19/17 23:15 36.8 64 19 150/96 (114) 96 Room Air 09/19/17 15:51 96 Room Air 09/19/17 15:01 36.7 59 18 112/73 (86) 96 Room Air Physical Exam: Jeff drainage General Appearance: no apparent distress Respiratory/Chest: normal breath sounds, no respiratory distress Abdomen: normal bowel sounds, non distended, soft, + tenderness (improved from yesterday) Laboratory Results: Results Past 24 Hours Test 09/20/17 05:49 Range/Units White Blood Count 6.94 4.8-10.8 K/uL Red Blood Count 4.65 4.2-5.4 M/uL Hemoglobin 14.2 12.0-16.0 g/dL Hematocrit 41.8 37-47 % Mean Corpuscular Volume 89.9 80-100 fL Mean Corpuscular Hemoglobin 30.5 25-34 pg Mean Corpuscular Hemoglobin Concent 34.0 32-36 g/dl Platelet Count 292 130-400 K/uL Mean Platelet Volume 9.1 7.4-10.4 fL Neutrophils (%) (Auto) 59.0 % Lymphocytes (%) (Auto) 25.1 % Monocytes (%) (Auto) 12.0 % Eosinophils (%) (Auto) 2.9 % Basophils (%) (Auto) 0.3 % Neutrophils # (Auto) 4.10 1.4-6.5 K/uL Lymphocytes # (Auto) 1.74 1.2-3.4 K/uL Monocytes # (Auto) 0.83 0.11-0.59 K/uL Eosinophils # (Auto) 0.20 0-0.5 K/uL Basophils # (Auto) 0.02 0-0.2 K/uL RDW Standard Deviation 40.5 36.4-46.3 fL RDW Coefficient of Variation 12.5 11.5-14.5 % Immature Granulocyte % (Auto) 0.7 % Immature Granulocyte # (Auto) 0.05 0.00-0.02 K/uL Sodium Level 140 136-145 mmol/L Potassium Level 4.3 3.5-5.1 mmol/L Chloride Level 108 98-107 mmol/L Carbon Dioxide Level 24 21-32 mmol/L Anion Gap 8.0 3-11 mmol/L Blood Urea Nitrogen 13 7-18 mg/dl Creatinine 0.63 0.60-1.20 mg/dl Est Creatinine Clear Calc Drug Dose 92.1 ml/min Estimated GFR () 109.9 Estimated GFR (Non- 94.8 BUN/Creatinine Ratio 20.2 10-20 Random Glucose 87 70-99 mg/dl Calcium Level 8.3 8.5-10.1 mg/dl Microbiology Results 09/20/17 C.difficile Toxin B Gene (PCR), Panch[place] Batch Pending Assessment & Plan Acute diverticulitis - improving. Pt is wondering about discharge. From surgical standpoint, she is stable although discussed it would be nice to have her bowels working better prior to going home. She wants to try prune juice today. Will need outpt f/u with either Dr. Hopkins or colorectal surgery. Discussed diet - low fiber initially until cscope and then high fiber following this to try and prevent recurrences. Will sign off - please call with questions.
[2017-09-20] MEDS: HYDROmorphone INJ 0.5 MG/0.5 ML SYR IV PRN (13:55)
[2017-09-20 15:26] VITALS: BP 135/88; PULSE 72; TEMP 36.7; O2SAT 96
[2017-09-20 16:39] VITALS: O2SAT 96
--- NOTE | 2017-09-20 18:42 | Progress Note ---
Medicine Progress Note Date & Time of Visit: Sep 20, 2017 at 10:35 Subjective Pt was seen and examined Sitting in chair with no distress Pt said that yesterday pain was worst she said that pain improved today Denies any fever, palpitation, dizziness and SOB Objective Last 8 Hrs Date Time Temp Pulse Resp B/P (MAP) Pulse Ox O2 Delivery O2 Flow Rate FiO2 09/20/17 16:39 96 Room Air 09/20/17 15:26 36.7 72 16 135/88 (104) 96 Room Air Physical Exam: General- No acute distress Head- atraumatic Eyes- PERRL, EOMI ENT- oropharynx clear Neck- supple, no JVD Lungs- clear to auscultation Heart- regular rhythm; no murmur Abdomen- hyperactive bowel sound, +tender with palpation Extremities-no calf tenderness Neuro- alert, oriented x 3; PERRL, EOMI; no facial palsy Skin- warm & dry Laboratory Results: Last 24 Hours Test 09/20/17 05:49 White Blood Count 6.94 K/uL Red Blood Count 4.65 M/uL Hemoglobin 14.2 g/dL Hematocrit 41.8 % Mean Corpuscular Volume 89.9 fL Mean Corpuscular Hemoglobin 30.5 pg Mean Corpuscular Hemoglobin Concent 34.0 g/dl Platelet Count 292 K/uL Mean Platelet Volume 9.1 fL Neutrophils (%) (Auto) 59.0 % Lymphocytes (%) (Auto) 25.1 % Monocytes (%) (Auto) 12.0 % Eosinophils (%) (Auto) 2.9 % Basophils (%) (Auto) 0.3 % Neutrophils # (Auto) 4.10 K/uL Lymphocytes # (Auto) 1.74 K/uL Monocytes # (Auto) 0.83 K/uL Eosinophils # (Auto) 0.20 K/uL Basophils # (Auto) 0.02 K/uL RDW Standard Deviation 40.5 fL RDW Coefficient of Variation 12.5 % Immature Granulocyte % (Auto) 0.7 % Immature Granulocyte # (Auto) 0.05 K/uL Sodium Level 140 mmol/L Potassium Level 4.3 mmol/L Chloride Level 108 mmol/L Carbon Dioxide Level 24 mmol/L Anion Gap 8.0 mmol/L Blood Urea Nitrogen 13 mg/dl Creatinine 0.63 mg/dl Est Creatinine Clear Calc Drug Dose 92.1 ml/min Estimated GFR () 109.9 Estimated GFR (Non- 94.8 BUN/Creatinine Ratio 20.2 Random Glucose 87 mg/dl Calcium Level 8.3 mg/dl Date/Time Source Procedure Growth Status 09/20/17 16:49 Stool C.difficile Toxin B Gene (PCR) Pending [place] 09/20/17 00:00 Stool C.difficile Toxin B Gene (PCR) - Final No C. difficile toxin B gene detected Complete Assessment & Plan Acute diverticulitis: Presenting on admission with LLQ abd pain associated with one episode of rectal bleed and nausea/vominting CT abd/pelvis showed acute sigmoid diverticulitis. No evidence of abscess Elevated Leukocytosis on admission 20.3 Abx was changed to Ertapenem by ID due to pt multiple allergic to abx Will advanced diet to low fat as tolerated Continue pain control GI on board Recommended colonoscopy in 6 to 8 weeks Surgery consulted Bentyl 10 mg added case discussed with ID recommended to discharge on Ertapenem to complete 7-10 course Follow up with ID as an outpatient before complete course of antibiotic Will need to follow with a dr. Hopkins or colorectal surgery as on outpatient Paroxysmal A Fib: H/o ablation in 2008 Rate controlled On NSR LLE pain: Hx PE in 2008 U/S negative for DVT HTN: BP stable Continue home dose of Lisinopril Hypothyroidism: TSH 5.7 (elevated) complaint of tiredness and weight gain in the last few week increased Synthroid to 100mcg Check TSH in 4- 6 weeks GERD: Stable Continue ranitidine Asthma, mild COPD: Continue home inhalers Stable DVT Ppx: SCDs Code status: FULL Code Disposition Will discharge home tomorrow Will need IV abx infusion for Ertapenem Consultants: Gastro Current Inpatient Medications: Current Inpatient Medications Medications (Trade) Dose Ordered Sig/Kt Route Start Time Stop Time Status Last Admin Dose Admin Ioversol (Optiray 320) 111 ml UD PRN IV 09/17/17 18:15 09/21/17 18:14 Acetaminophen (Tylenol Tab) 650 mg Q4H PRN PO 09/17/17 21:30 10/17/17 21:29 Lisinopril (Zestril Tab) 20 mg QAM PO 09/18/17 09:00 10/18/17 08:59 09/20/17 07:31 20 MG Ranitidine HCl (zANTac TAB) 150 mg DAILY PRN PO 09/17/17 21:30 10/17/17 21:29 Zolpidem Tartrate (Ambien Tab) 10 mg HS PO 09/17/17 23:00 10/17/17 22:59 09/19/17 22:10 10 MG Ketorolac Tromethamine (Toradol Inj) 30 mg Q6H PRN IV 09/17/17 21:30 09/22/17 21:29 09/19/17 15:11 30 MG Tramadol HCl (Ultram Tab) not relieved by tylenol @ Q6H PRN PO 09/17/17 21:30 10/17/17 21:29 Ondansetron HCl (Zofran Inj) 4 mg Q6H PRN IV 09/17/17 21:30 10/17/17 21:29 09/18/17 00:07 4 MG Hydromorphone HCl (Dilaudid Inj) 0.5 mg Q3H PRN IV 09/17/17 21:30 10/01/17 21:29 09/20/17 13:55 0.5 MG Lorazepam 0.5 mg/ Syringe 1 ml @ 1 mls/min Q4H PRN IV 09/18/17 00:15 10/18/17 00:14 Ertapenem 1 gm/ Sodium Chloride 50 ml @ 120 mls/hr Q24H IV 09/18/17 11:00 09/28/17 10:59 09/20/17 10:47 120 MLS/HR Dicyclomine HCl (Bentyl Tab) 20 mg BID PO 09/18/17 21:00 10/18/17 20:59 09/20/17 07:31 20 MG Levothyroxine Sodium (Synthroid Tab) 100 mcg DAILYBB PO 09/20/17 06:30 10/18/17 06:29 09/20/17 06:00 100 MCG Fluconazole (Diflucan Tab) 100 mg QAM PO 09/20/17 09:00 09/22/17 09:01 09/20/17 07:31 100 MG
--- NOTE | 2017-09-20 19:58 | Infectious Disease Progress Nt ---
Progress Note Date of Service Sep 20, 2017. Subjective Pt evaluation today including: conversation w/ patient, physical exam, chart review, lab review, review of studies, conversation w/ field technical support consultant, review of inpatient medication list Abdominal pain slowly improving. Remains afebrile. Continues to tolerate ertapenem. No other new complaints. All Other Systems: Reviewed and Negative Medications Current Inpatient Medications Medications (Trade) Dose Ordered Sig/Kt Route Start Time Stop Time Status Last Admin Dose Admin Ioversol (Optiray 320) 111 ml UD PRN IV 09/17/17 18:15 09/21/17 18:14 Acetaminophen (Tylenol Tab) 650 mg Q4H PRN PO 09/17/17 21:30 10/17/17 21:29 Lisinopril (Zestril Tab) 20 mg QAM PO 09/18/17 09:00 10/18/17 08:59 09/20/17 07:31 20 MG Ranitidine HCl (zANTac TAB) 150 mg DAILY PRN PO 09/17/17 21:30 10/17/17 21:29 Zolpidem Tartrate (Ambien Tab) 10 mg HS PO 09/17/17 23:00 10/17/17 22:59 09/19/17 22:10 10 MG Ketorolac Tromethamine (Toradol Inj) 30 mg Q6H PRN IV 09/17/17 21:30 09/22/17 21:29 09/19/17 15:11 30 MG Tramadol HCl (Ultram Tab) not relieved by tylenol @ Q6H PRN PO 09/17/17 21:30 10/17/17 21:29 Ondansetron HCl (Zofran Inj) 4 mg Q6H PRN IV 09/17/17 21:30 10/17/17 21:29 09/18/17 00:07 4 MG Hydromorphone HCl (Dilaudid Inj) 0.5 mg Q3H PRN IV 09/17/17 21:30 10/01/17 21:29 09/20/17 13:55 0.5 MG Lorazepam 0.5 mg/ Syringe 1 ml @ 1 mls/min Q4H PRN IV 09/18/17 00:15 10/18/17 00:14 Ertapenem 1 gm/ Sodium Chloride 50 ml @ 120 mls/hr Q24H IV 09/18/17 11:00 09/28/17 10:59 09/20/17 10:47 120 MLS/HR Dicyclomine HCl (Bentyl Tab) 20 mg BID PO 09/18/17 21:00 10/18/17 20:59 09/20/17 07:31 20 MG Levothyroxine Sodium (Synthroid Tab) 100 mcg DAILYBB PO 09/20/17 06:30 10/18/17 06:29 09/20/17 06:00 100 MCG Fluconazole (Diflucan Tab) 100 mg QAM PO 09/20/17 09:00 09/22/17 09:01 09/20/17 07:31 100 MG Objective Vital Signs Date Time Temp Pulse Resp B/P (MAP) Pulse Ox O2 Delivery O2 Flow Rate FiO2 09/20/17 16:39 96 Room Air 09/20/17 15:26 36.7 72 16 135/88 (104) 96 Room Air 09/20/17 08:00 Room Air 09/20/17 07:16 36.9 63 18 147/83 (104) 95 Room Air 09/20/17 00:00 Room Air 09/19/17 23:15 36.8 64 19 150/96 (114) 96 Room Air Physical Exam General Appearance: WD/WN, no apparent distress Eyes: normal inspection, EOMI, sclerae normal ENT: hearing grossly normal, + pertinent finding (Thrush) Neck: supple, no adenopathy, trachea midline Respiratory/Chest: lungs clear, normal breath sounds, no respiratory distress Cardiovascular: regular rate, rhythm, no gallop, no murmur Abdomen: normal bowel sounds, soft, no organomegaly, + tenderness Extremities: non-tender, no calf tenderness Neurologic/Psychiatric: alert, oriented x 3 Skin: normal color, warm/dry, no rash Lymphatic: no adenopathy Laboratory Results RUN DATE: 09/20/17 [facility] PAGE 1 RUN TIME: 1821 Specimen Inquiry PATIENT: SHONA HOLLAND LOC: [id number] U # : [id number] AGE/SX: 62/F ROOM: [facility] REG : 09/17/[address]: Nohelia Lang M.D. : 1955 BED: 1 DIS : STATUS: ADM IN TLOC: SPEC #: [id number] TANGELA: 09/20/17-UNK STATUS: COMP REQ #: [id number] RECD: 09/20/[address] [facility] [address]: Kash Schwab M.D. SOURCE: STOOL ENTR: 09/20/[address] [facility] DR: Adilson Solano MD SPDESC: Nohelia Lang M.D. Duncan, Marten B., Rocio Sims MD Piatt, John E., III, M.D. ORDERED: CDIFF TOXIN B COMMENTS: Has Specimen Been Obtained/Collected? Y Procedure Result Verified Site CDIFF TOXIN B GENE*(2 YR OR >) Final 09/20/17-1821 No C. difficile toxin B gene detected Last 24 Hours Test 09/20/17 05:49 White Blood Count 6.94 K/uL Red Blood Count 4.65 M/uL Hemoglobin 14.2 g/dL Hematocrit 41.8 % Mean Corpuscular Volume 89.9 fL Mean Corpuscular Hemoglobin 30.5 pg Mean Corpuscular Hemoglobin Concent 34.0 g/dl Platelet Count 292 K/uL Mean Platelet Volume 9.1 fL Neutrophils (%) (Auto) 59.0 % Lymphocytes (%) (Auto) 25.1 % Monocytes (%) (Auto) 12.0 % Eosinophils (%) (Auto) 2.9 % Basophils (%) (Auto) 0.3 % Neutrophils # (Auto) 4.10 K/uL Lymphocytes # (Auto) 1.74 K/uL Monocytes # (Auto) 0.83 K/uL Eosinophils # (Auto) 0.20 K/uL Basophils # (Auto) 0.02 K/uL RDW Standard Deviation 40.5 fL RDW Coefficient of Variation 12.5 % Immature Granulocyte % (Auto) 0.7 % Immature Granulocyte # (Auto) 0.05 K/uL Sodium Level 140 mmol/L Potassium Level 4.3 mmol/L Chloride Level 108 mmol/L Carbon Dioxide Level 24 mmol/L Anion Gap 8.0 mmol/L Blood Urea Nitrogen 13 mg/dl Creatinine 0.63 mg/dl Est Creatinine Clear Calc Drug Dose 92.1 ml/min Estimated GFR () 109.9 Estimated GFR (Non- 94.8 BUN/Creatinine Ratio 20.2 Random Glucose 87 mg/dl Calcium Level 8.3 mg/dl Assessment and Plan Patient with recurrent acute diverticulitis with multiple drug allergies. She thinks she has taken cephalexin safely in the past, so I have elected to change patient to IV ertapenem 1 g daily. would recommend 10-14 days of therapy, and would like to see the patient in follow-up as outpatient prior to discontinuation of antibiotics. Fluconazole added for oral candidiasis.
[2017-09-20] MEDS: ZOLPIDEM TARTRATE 10 MG TAB PO SCH (22:00)
[2017-09-20 23:21] VITALS: BP 135/85; PULSE 58; TEMP 36.8; O2SAT 96
[2017-09-21] MEDS: LEVOTHYROXINE 100 MCG TAB PO SCH (06:09)
[2017-09-21 06:16] LABS: BASO % 0.1 %; BASO ABS # 0.01 K/uL (0-0.2); COMPLETE YES; EOS % 2.7 %; HEMATOCRIT 40.9 % (37-47); IG% 0.6 %; LYMPH % 30.8 %; LYMPH ABS # 2.16 K/uL (1.2-3.4); MEAN CELL VOLUME 89.9 fL (80-100); MEAN CORPUSCULAR HEMOGLOBIN 31.2 pg (25-34); MEAN CORPUSCULAR HGB CONC 34.7 g/dl (32-36); MEAN PLATELET VOLUME 8.8 fL (7.4-10.4); MONO % 12.5 %; NEUT % 53.3 %; PLATELET COUNT 269 K/uL (130-400); RED BLOOD COUNT 4.55 M/uL (4.2-5.4); WHITE BLOOD COUNT 7.02 K/uL (4.8-10.8)
[2017-09-21 07:03] VITALS: BP 128/75; PULSE 61; TEMP 36.9; O2SAT 94
[2017-09-21] MEDS: DICYCLOMINE HCL 20 MG TAB PO SCH (07:52)
[2017-09-21] MEDS: FLUCONAZOLE 100 MG TAB PO SCH (07:52)
[2017-09-21] MEDS: LISINOPRIL 20 MG TAB PO SCH (07:52)
[2017-09-21] MEDS ORDERED: NURSING VERBAL MED ORDER ONE (10:00)
[2017-09-21 11:03] VITALS: BP 128/75; PULSE 61; TEMP 36.9; O2SAT 94
[2017-09-21] MEDS: ERTAPENEM IV 1 GM in SODIUM CHLOR 0.9% AD-VAN 50ML 50 ML IV SCH (11:16)
--- NOTE | 2017-09-21 11:18 | Progress Note ---
Medicine Progress Note Date & Time of Visit: Sep 21, 2017 at 11:12. Subjective Pt was seen and examined Sitting in bed with no distress Pt said that pain improved Tolerated diet continue to have lose stools Denies any chest pain, palpitation, dizziness and SOB Objective Last 8 Hrs Date Time Temp Pulse Resp B/P (MAP) Pulse Ox O2 Delivery O2 Flow Rate FiO2 09/21/17 11:03 36.9 61 16 94 Room Air 09/21/17 09:15 Room Air 09/21/17 07:03 36.9 61 16 128/75 (92) 94 Room Air Physical Exam: General- No acute distress Head- atraumatic Eyes- PERRL, EOMI ENT- oropharynx clear Neck- supple, no JVD Lungs- clear to auscultation Heart- regular rhythm; no murmur Abdomen- hyperactive bowel sound, +tender with palpation Extremities-no calf tenderness Neuro- alert, oriented x 3; PERRL, EOMI; no facial palsy Skin- warm & dry Laboratory Results: Last 24 Hours Test 09/21/17 05:42 White Blood Count 7.02 K/uL Red Blood Count 4.55 M/uL Hemoglobin 14.2 g/dL Hematocrit 40.9 % Mean Corpuscular Volume 89.9 fL Mean Corpuscular Hemoglobin 31.2 pg Mean Corpuscular Hemoglobin Concent 34.7 g/dl Platelet Count 269 K/uL Mean Platelet Volume 8.8 fL Neutrophils (%) (Auto) 53.3 % Lymphocytes (%) (Auto) 30.8 % Monocytes (%) (Auto) 12.5 % Eosinophils (%) (Auto) 2.7 % Basophils (%) (Auto) 0.1 % Neutrophils # (Auto) 3.74 K/uL Lymphocytes # (Auto) 2.16 K/uL Monocytes # (Auto) 0.88 K/uL Eosinophils # (Auto) 0.19 K/uL Basophils # (Auto) 0.01 K/uL RDW Standard Deviation 41.1 fL RDW Coefficient of Variation 12.6 % Immature Granulocyte % (Auto) 0.6 % Immature Granulocyte # (Auto) 0.04 K/uL Assessment & Plan Acute diverticulitis: Presenting on admission with LLQ abd pain associated with one episode of rectal bleed and nausea/vominting CT abd/pelvis showed acute sigmoid diverticulitis. No evidence of abscess Elevated Leukocytosis on admission 20.3 Abx was changed to Ertapenem by ID due to pt multiple allergic to abx Will advanced diet to low fat as tolerated Continue pain control GI on board Recommended colonoscopy in 6 to 8 weeks Surgery consulted Bentyl 10 mg added case discussed with ID recommended to discharge on Ertapenem to complete 7-10 course Follow up with ID as an outpatient before complete course of antibiotic Will need to follow with a dr. Hopkins or colorectal surgery as an outpatient clinically improved Paroxysmal A Fib: H/o ablation in 2008 Rate controlled On NSR LLE pain: Hx PE in 2008 U/S negative for DVT HTN: BP stable Continue home dose of Lisinopril Hypothyroidism: TSH 5.7 (elevated) complaint of tiredness and weight gain in the last few week increased Synthroid to 100mcg Check TSH in 4- 6 weeks Oral Savi Continue Diflucan GERD: Stable Continue ranitidine Asthma, mild COPD: Continue home inhalers Stable DVT Ppx: SCDs Code status: FULL Code Disposition Will discharge home today building manager arranged for IV abx infusion for Ertapenem x 5days Discharge planning: home with IV medication Consultants: Gastro ID Surgery Current Inpatient Medications: Current Inpatient Medications Medications (Trade) Dose Ordered Sig/Kt Route Start Time Stop Time Status Last Admin Dose Admin Ioversol (Optiray 320) 111 ml UD PRN IV 09/17/17 18:15 09/21/17 18:14 Acetaminophen (Tylenol Tab) 650 mg Q4H PRN PO 09/17/17 21:30 10/17/17 21:29 Lisinopril (Zestril Tab) 20 mg QAM PO 09/18/17 09:00 10/18/17 08:59 09/21/17 07:52 20 MG Ranitidine HCl (zANTac TAB) 150 mg DAILY PRN PO 09/17/17 21:30 10/17/17 21:29 Zolpidem Tartrate (Ambien Tab) 10 mg HS PO 09/17/17 23:00 10/17/17 22:59 09/20/17 22:00 10 MG Ketorolac Tromethamine (Toradol Inj) 30 mg Q6H PRN IV 09/17/17 21:30 09/22/17 21:29 09/19/17 15:11 30 MG Tramadol HCl (Ultram Tab) not relieved by tylenol @ Q6H PRN PO 09/17/17 21:30 10/17/17 21:29 Ondansetron HCl (Zofran Inj) 4 mg Q6H PRN IV 09/17/17 21:30 10/17/17 21:29 09/18/17 00:07 4 MG Hydromorphone HCl (Dilaudid Inj) 0.5 mg Q3H PRN IV 09/17/17 21:30 10/01/17 21:29 09/20/17 13:55 0.5 MG Lorazepam 0.5 mg/ Syringe 1 ml @ 1 mls/min Q4H PRN IV 09/18/17 00:15 10/18/17 00:14 Ertapenem 1 gm/ Sodium Chloride 50 ml @ 120 mls/hr Q24H IV 09/18/17 11:00 09/28/17 10:59 09/20/17 10:47 120 MLS/HR Dicyclomine HCl (Bentyl Tab) 20 mg BID PO 09/18/17 21:00 10/18/17 20:59 09/21/17 07:52 20 MG Levothyroxine Sodium (Synthroid Tab) 100 mcg DAILYBB PO 09/20/17 06:30 10/18/17 06:29 09/21/17 06:09 100 MCG Fluconazole (Diflucan Tab) 100 mg QAM PO 09/20/17 09:00 09/22/17 09:01 09/21/17 07:52 100 MG Lactobacillus Acidophilus (Floranex Tab) 4 tab BID PO 09/21/17 21:00 10/21/17 20:59
[2017-09-21] MEDS ORDERED: SYN100 PO (11:36)
[2017-09-21] MEDS ORDERED: ERTA1INJ IV (11:36)
[2017-09-21] MEDS ORDERED: LCTX PO (11:36)
[2017-09-21] MEDS ORDERED: ULT50X PO (11:36)
[2017-09-21] MEDS ORDERED: DFL100 PO (11:36)
--- NOTE | 2017-09-21 11:47 | Discharge Instructions ---
Discharge Instructions Date of Service Sep 21, 2017. Admission Reason for Admission: Sigmoid Diverticulitis Discharge Discharge Diagnosis / Problem: Acute sigmoid diverticulitis, Paroxysmal A Fib, Hypothyroidism,Oral anup Discharge Goals Goal(s): Decrease discomfort, Improve function, Improve disease control Activity Recommendations Activity Limitations: resume your previous activity (as tolerated) . Instructions / Follow-Up Instructions / Follow-Up Follow up with your primary care provider Dr. Rico on 09/25 @! 1:45 PM Schedule follow up with surgery Dr. Hopkins on 10/12 @ 2:30 PM Please call [phone] to schedule follow up appointment with Infection Disease Dr. Solano for next week Continue antibiotic infusion for 5 days (case management arranged for the infusion) Complete the course of Diflucan Check TSH in 4-6 weeks since levothyroxine increased to 100mcg Tramadol for pain control ( hold if you become lethargy or drowsy) Please do not operate any machine or drive after taking tramadol Current Hospital Diet Patient's current hospital diet: AHA Diet (Heart Healthy), Low Fat Diet Discharge Diet Recommended Diet: Low Fat Diet Pending Studies Studies pending at discharge: no Medical Emergencies . Who to Call and When: Medical Emergencies: If at any time you feel your situation is an emergency, please call 911 immediately. . Non-Emergent Contact Non-Emergency issues call your: Primary Care Provider Call Non-Emergent contact if: you have a fever, your pain is not controlled, your pain is worsening, you have any medication questions . . "Provider Documentation" section prepared by Nohelia Lang. . VTE Core Measure Inpt VTE Proph given/why not?: SCD's [place] Drug Monitoring Program Search Results: no issues identified
[2017-09-21] MEDS ORDERED: LACTOBACILLUS ACIDOPHILUS (FLORANEX) TAB PO SCH (21:00)
--- NOTE | 2017-09-24 07:32 | Discharge Summary ---
Discharge Summary Date of Service Sep 24, 2017. Discharge Summary Admission Date: Sep 17, 2017 at 21:08 Discharge Date: Sep 21, 2017 Discharge Disposition: Home with services Principal Diagnosis: Acute diverticulitis Secondary Diagnoses/Problems: Paroxysmal A Fib HTN Hypothyroidism Oral anup LLE pain Procedures: ULTRASOUND LEFT LOWER EXTREMITY VENOUS CLINICAL HISTORY: Left leg pain. COMPARISON STUDY: Bilateral lower extremity venous ultrasound dated 07/17/2016. TECHNIQUE: Real-time, grayscale, and color Doppler sonography of the deep veins of the left lower extremity was performed from the inguinal crease to the calf. Compression and augmentation were utilized. FINDINGS: There is no sonographic evidence of deep venous thrombosis identified in the left lower extremity. The common femoral, superficial femoral, and popliteal veins are patent and normally compressible. The greater saphenous vein and the profunda femoris vein at the junction with the common femoral vein are clear. The visualized calf veins are patent. IMPRESSION: There is no sonographic evidence of deep venous thrombosis identified in the left lower extremity. Electronically signed by: Frank Mendez M.D. 09/17/2017 10:14 PM Dictated Date/Time: 09/17/2017 10:[address] SCAN OF THE ABDOMEN AND PELVIS WITH IV CONTRAST CLINICAL HISTORY: Left lower quadrant abdominal pain. COMPARISON STUDY: Abdominal CT dated 07/17/2016. TECHNIQUE: Following the IV administration of 92 cc of Optiray 320, CT scan of the abdomen and pelvis is performed from the lung bases to the proximal femora. Images are reviewed in the axial, sagittal, and coronal planes. IV contrast was administered without complication. A dose lowering technique was utilized adhering to the principles of ALARA. The examination is degraded by large body habitus, and by streak artifact from the body wall abutting the CT gantry. CT DOSE: 937.58 mGy.cm FINDINGS: Lung bases: The heart is top normal in size and without pericardial effusion. A calcified granuloma is seen in the lingula. The lung bases are otherwise clear noting dependent atelectasis. There is a small hiatal hernia. Liver: The contrast-enhanced liver is enlarged, measuring 20 cm in length. The liver demonstrates diffusely diminished attenuation consistent with hepatic steatosis. There is no intrahepatic biliary ductal dilatation. The hepatic veins and portal veins are patent. Gallbladder: Unremarkable. Spleen: Normal in size and attenuation. Pancreas: Unremarkable. Adrenal glands: Unremarkable. Kidneys: The contrast enhanced kidneys are normal in size and without hydronephrosis. The kidneys enhance symmetrically. Abdominal vasculature: The abdominal aorta is normal in course and caliber noting mild to moderate atherosclerotic calcification. Bowel: There is moderate colonic diverticulosis. There is wall thickening with pericolonic inflammation and fluid seen involving the sigmoid colon consistent with acute diverticulitis. There is no evidence of diverticular abscess. Fecal retention is noted in the right colon. No bowel obstruction is seen. The appendix is not visualized. Peritoneum: There is no intraperitoneal free air or abdominal ascites. There is a small fat-containing umbilical hernia. Lymphadenopathy: None. Pelvic viscera: The bladder is decompressed and not well evaluated. The uterus is surgically absent. No adnexal lesion is seen. Skeletal structures: The skeletal structures are osteopenic. There is mild lumbosacral spondylosis and scoliosis. Postoperative change is noted at L5-S1. No lytic or blastic lesions are seen. IMPRESSION: 1. Findings are consistent with acute sigmoid diverticulitis. No intraperitoneal free air is seen and there is no evidence of abscess. 2. Hepatomegaly and hepatic steatosis. 3. Additional findings as above. Electronically signed by: Frank Mendez M.D. 09/17/2017 7:22 PM Dictated Date/Time: 09/17/2017 7:16 PM The status of this report is Signed. Consultations: Gastro ID Surgery Medication Reconciliation New Medications: Ertapenem Sodium (Invanz) 1 Gm Inj 1 GM IV DAILY for 5 Days, VIAL Fluconazole (Fluconazole) 100 Mg Tab 100 MG PO QAM for 3 Days, #3 TAB Lactobacillus Acidophilus (Floranex) 1 Tab Tab 4 TAB PO DAILY for 5 Days, #20 TAB Levothyroxine Sodium (Synthroid) 100 Mcg Tab 100 MCG PO DAILYBB for 30 Days, TAB Tramadol HCl (Tramadol HCl) 50 Mg Tab 50 MG PO BID PRN for Pain for 5 Days, #10 TAB Continued Medications: Albuterol Sulf (Proventil 0.083% 2.5MG/3ML) 2.5 Mg/3 Ml Nebu 2.5 MG INH Q4 PRN for SOB/Wheezing, EA Cholecalciferol (Vitamin D3) 1,000 Unit Tab 1 TAB PO DAILY for 90 Days, #90 TAB 3 Refills Lisinopril (Prinivil) 20 Mg Tab 20 MG PO QAM, TAB [place]-3 Fatty Acids (Fish Oil) 1 Cap Cap 1 CAP PO DAILY Ranitidine (Zantac) 150 Mg Tab 150 MG PO PRN, TAB Valacyclovir Hcl (Valtrex) 1 Gm Tab 1000 MG PO DAILY PRN for OUTBREAKS, #21 TAB Zolpidem Tartrate (Ambien) 10 Mg Tab 10 MG PO HS, TAB Discontinued Medications: Levothyroxine Sodium (Synthroid) 88 Mcg Tab 88 MCG PO QAM, TAB Admission Information HPI (per Admitting provider): This is a 62yo F with a PMH of recurrent diverticulitis, gastroparesis, paroxysmal a fib, asthma, HTN and other problems listed below who presents with worsening abdominal pain over the past few days. A few weeks ago, patient started to experience nausea with mild, diffuse abdominal pain. Over the past few days, her abdominal pain worsened and was associated with subjective fever, chills, decreased PO intake and loose stools. Patient was started on Levaquin and doxycycline yesterday for diverticulitis. Today, patient's pain worsened to a 10/10 sharp, diffuse pain located primarily in the LLQ. Made worse with movement and better with pain medication. Also experienced 1 episode of bright red blood per rectum and nausea/vomiting (x2 episodes) today. brought patient to ER for further evaluation. In addition to abd pain, nausea/vomiting and BRBPR, patient endorses intermittent palpitations and LLE pain. Denies fever, chills, headache, visual changes, CP, SOB, hematemesis, melena, LE swelling. Physical Exam (per Admitting): General Appearance: + mild distress, + obese Head: normocephalic, atraumatic Eyes: normal inspection, PERRL, sclerae normal (Conjunctiva normal ) ENT: normal ENT inspection (Dry mucous membranes ), hearing grossly normal, pharynx normal Neck: supple, thyroid normal, trachea midline Respiratory/Chest: chest non-tender, lungs clear, normal breath sounds, no respiratory distress, no accessory muscle use Cardiovascular: regular rate, rhythm, no murmur, normal peripheral pulses Abdomen/GI: normal bowel sounds, soft, no organomegaly, + tenderness ( Diffuse TTP, most severe in LLQ. No guarding. ) Back: normal inspection Extremities/Musculoskelatal: normal inspection, no pedal edema, + calf tenderness (Left ) Neurologic/Psych: no motor/sensory deficits, alert, normal mood/affect, oriented x 3 Skin: normal color, warm/dry, no rash Hospital Course Acute diverticulitis: Presenting on admission with LLQ abd pain associated with one episode of rectal bleed and nausea/vominting CT abd/pelvis showed acute sigmoid diverticulitis. No evidence of abscess Elevated Leukocytosis on admission 20.3 Abx was changed to Ertapenem by ID due to pt multiple allergic to abx Will advanced diet to low fat as tolerated Continue pain control GI on board Recommended colonoscopy in 6 to 8 weeks Surgery consulted Bentyl 10 mg added case discussed with ID recommended to discharge on Ertapenem to complete 7-10 course Follow up with ID as an outpatient before complete course of antibiotic Will need to follow with a dr. Hopkins or colorectal surgery as an outpatient clinically improved Paroxysmal A Fib: H/o ablation in 2008 Rate controlled On NSR LLE pain: Hx PE in 2008 U/S negative for DVT HTN: BP stable Continue home dose of Lisinopril Hypothyroidism: TSH 5.7 (elevated) complaint of tiredness and weight gain in the last few week increased Synthroid to 100mcg Check TSH in 4- 6 weeks Oral Anup Continue Diflucan GERD: Stable Continue ranitidine Asthma, mild COPD: Continue home inhalers Stable DVT Ppx: SCDs Code status: FULL Code Disposition Will discharge home today manager technology arranged for IV abx infusion for Ertapenem x 5days Total time spent on discharge = 37 minutes This includes examination of the patient, discharge planning, medication reconciliation, and communication with other providers. Discharge Instructions Discharge Instructions Date of Service Sep 21, 2017. Admission Reason for Admission: Sigmoid Diverticulitis Discharge Discharge Diagnosis / Problem: Acute sigmoid diverticulitis, Paroxysmal A Fib, Hypothyroidism,Oral anup Discharge Goals Goal(s): Decrease discomfort, Improve function, Improve disease control Activity Recommendations Activity Limitations: resume your previous activity (as tolerated) . Instructions / Follow-Up Instructions / Follow-Up Follow up with your primary care provider Dr. Rico on 09/25 @! 1:45 PM Schedule follow up with surgery Dr. Hopkins on 10/12 @ 2:30 PM Please call [phone] to schedule follow up appointment with Infection Disease Dr. Solano for next week Continue antibiotic infusion for 5 days (case management arranged for the infusion) Complete the course of Diflucan Check TSH in 4-6 weeks since levothyroxine increased to 100mcg Tramadol for pain control ( hold if you become lethargy or drowsy) Please do not operate any machine or drive after taking tramadol Current Hospital Diet Patient's current hospital diet: AHA Diet (Heart Healthy), Low Fat Diet Discharge Diet Recommended Diet: Low Fat Diet Pending Studies Studies pending at discharge: no Medical Emergencies . Who to Call and When: Medical Emergencies: If at any time you feel your situation is an emergency, please call 911 immediately. . Non-Emergent Contact Non-Emergency issues call your: Primary Care Provider Call Non-Emergent contact if: you have a fever, your pain is not controlled, your pain is worsening, you have any medication questions . . "Provider Documentation" section prepared by Nohelia Lang. . VTE Core Measure Inpt VTE Proph given/why not?: SCD's [place] Drug Monitoring Program Search Results: no issues identified Additional Copies To Cj Rico III, M.D.
== END 2017-09-21 12:36 | disposition home health service (06) | DRG 378 ==
LOC: C.EDB 17:25 → C.MS2W 21:08 → ENRESERV 21:17
PROVIDERS: ADMIT Internal Medicine; ATTEND Internal Medicine
DX: K57.33 Diverticulitis of large intestine without perforation or abscess with bleeding (principal); B37.0 Candidal stomatitis; K21.9 Gastro-esophageal reflux disease without esophagitis; I10 Essential (primary) hypertension; E03.9 Hypothyroidism, unspecified; E78.5 Hyperlipidemia, unspecified; I48.0 Paroxysmal atrial fibrillation; J44.9 Chronic obstructive pulmonary disease, unspecified; M79.605 Pain in left leg; Z79.899 Other long term (current) drug therapy; Z86.711 Personal history of pulmonary embolism; Z86.718 Personal history of other venous thrombosis and embolism; Z87.891 Personal history of nicotine dependence

== ENCOUNTER 2017-10-01 23:01 | Inpatient (IN) | payer OTHER ==
[~2017-10-01] VITALS: Ht 157.5 cm; Wt 85.3 kg
[~2017-10-01 23:01] MED LIST changes: +DFL100 PO; -FENO134C PO; +LCTX PO; -LEVO88TA PO; -PANT40TA PO; +SYN100 PO; +ULT50X PO
[2017-10-01] MEDS ORDERED: MoRPHine SULFATE 4 MG/ML 1 ML CARP\\VIAL IV STA (23:14)
[2017-10-01] MEDS ORDERED: ONDANSETRON INJ 2 MG/ML 2 ML VIAL IV STA (23:14)
--- NOTE | 2017-10-01 23:15 | EMERGENCY ROOM VISIT NOTE ---
History Report prepared by Yelena: Sven Villanueva Under the Supervision of: Dr. Arcenio Mendes D.O. First contact with patient: 23:09 Chief Complaint: GI ASSESSMENT Stated Complaint: DIVERTICULITIS History of Present Illness The patient is a 62 year old female who presents to the Emergency Room with complaints of constant, severe, lower abdominal pain beginning two weeks ago. The patient states she is currently being treated with Invanz for the past 14 days for diverticulitis. She reports it is not getting better and developed the chills today. The patient notes she was hospitalized for a week and received a PICC line about 10 days ago. She denies rectal bleeding. Source of History: patient Onset: 14 days ago Position: abdomen (lower) Symptom Intensity: severe Timing: constant Associated Symptoms: + chills Note: Denies: rectal bleeding Review of Systems See HPI for pertinent positives and negatives. A total of ten systems were reviewed and were otherwise negative. Past Medical & Surgical Medical Problems: (1) Asthma (2) Diverticulitis (3) DIVERTICULITIS COLON (W/O MENT OF HEMORRHAGE) (4) Gastroesophageal reflux disease (5) HX-VENOUS THROMBOSIS&EMBOLISM (6) HYPERLIPIDEMIA NEC/NOS (7) HYPERTENSION NOS (8) Hypothyroidism (9) Irritable colon (10) s/p appendectomy (11) s/p cervical discectomy + fusion (12) s/p hysterectomy (13) s/p lumbar hemilaminectomy (14) SPINAL STENOSIS-LUMBAR (15) Spine surgery Family History FH: cancer FH: heart disease Hypertension Social History Smoking Status: Never Smoker Alcohol Use: occasionally Marital Status: Housing Status: lives with family Current/Historical Medications Scheduled Cholecalciferol (Vitamin D3), 1 TAB PO DAILY Ertapenem Sodium (Invanz), 1 GM IV QAM Lactobacillus Acidophilus (Floranex), 4 TAB PO DAILY Levothyroxine Sodium (Synthroid), 100 MCG PO DAILYBB Lisinopril (Prinivil), 20 MG PO QAM [place]-3 Fatty Acids (Fish Oil), 1 CAP PO DAILY Ranitidine (Zantac), 150 MG PO PRN Zolpidem Tartrate (Ambien), 10 MG PO HS Scheduled PRN Albuterol Sulf (Proventil 0.083% 2.5MG/3ML), 2.5 MG INH Q4 PRN for SOB/Wheezing Hydrocodone/Acetaminophen 10MG/325MG ([place] 10MG/325MG), 1 TAB PO Q6 PRN for Pain Valacyclovir Hcl (Valtrex), 1,000 MG PO DAILY PRN for OUTBREAKS Allergies Coded Allergies: Fentanyl (Verified Allergy, Unknown, itching, 10/02/17) Levofloxacin (Verified Allergy, Unknown, CAN'T TAKE WITH FLECAINIDE, ) gmg Penicillins (Verified Allergy, Unknown, RASH, 10/02/17) ALLERGY IS RASH Sulfa Drugs (Verified Allergy, Unknown, 10/02/17) Replaces SULFAMETHOXAZ Sulfamethoxazole (Verified Allergy, Unknown, 10/02/17) Replaces SULFAMETHOXAZ Trimethoprim (Verified Allergy, Unknown, 10/02/17) Replaces SULFAMETHOXAZ Metronidazole (Verified Adverse Reaction, Unknown, 0, 10/02/17) GI upset w PO Flagyl; px can tolerate IV Flagyl Physical Exam Vital Signs Date Time Temp Pulse Resp B/P (MAP) Pulse Ox O2 Delivery O2 Flow Rate FiO2 10/02/17 01:43 90 18 106/54 98 Room Air 10/01/17 23:07 36.9 95 18 114/79 98 Room Air Physical Exam GENERAL: Awake, alert, well-appearing, in no distress HENT: Normocephalic, atraumatic. Oropharynx unremarkable. EYES: Normal conjunctiva. Sclera non-icteric. NECK: Supple. No nuchal rigidity. FROM. No JVD. RESPIRATORY: Clear to auscultation. CARDIAC: Regular rate, normal rhythm. Extremities warm and well perfused. Pulses equal. ABDOMEN: Soft, non-distended. Mild tenderness to palpation in the left lower quadrant. No rebound or guarding. No masses. RECTAL: Deferred. MUSCULOSKELETAL: Chest examination reveals no tenderness. The back is symmetrical on inspection without obvious abnormality. There is no CVA tenderness to palpation. No joint edema. PICC line in right upper extremity. LOWER EXTREMITIES: Calves are equal size bilaterally and non-tender. No edema. No discoloration. NEURO: Normal sensorium. No sensory or motor deficits noted. SKIN: No rash or jaundice noted. Medical Decision & Procedures ER Provider Diagnostic Interpretation: Radiology results as stated below per my review and radiologist interpretation Addendum - Addeed by Cheo Carroll MD on 10/02/17 1:17 AM Correction. Stranding about the sigmoid colon. Multiple sigmoid diverticula seen. Findings suggest acute diverticulitis, uncomplicated. No abscess, Perforation, free air, free fluid or bowel obstruction. No appendicitis or obstructive uropathy. No other acute disease. CT ABDOMEN & PELVIS with contrast: comparison with 09/17/17 CT. Stranding about the sigmoid colon with there are multiple diverticula suggests the possibility of acute epiglottis. No abscess, perforation, free air, free fluid, or bowel obstruction. No appendicitis or obstructive uropathy. No other acute disease. Radiologist: Cheo Carroll MD Study ready at 0052 and initial results transmitted at 0107 Laboratory Results 10/01/17 23:40 Red Blood Count 4.63, Mean Corpuscular Volume 90.1, Mean Corpuscular Hemoglobin 30.9, Mean Corpuscular Hemoglobin Concent 34.3, Mean Platelet Volume 9.0, Neutrophils (%) (Auto) 63.6, Lymphocytes (%) (Auto) 23.8, Monocytes (%) (Auto) 9.6, Eosinophils (%) (Auto) 2.4, Basophils (%) (Auto) 0.4, Neutrophils # (Auto) 6.87, Lymphocytes # (Auto) 2.57, Monocytes # (Auto) 1.04, Eosinophils # (Auto) 0.26, Basophils # (Auto) 0.04 10/01/17 23:40 Test 10/01/17 23:14 10/01/17 23:40 White Blood Count 10.80 K/uL (4.8-10.8) Red Blood Count 4.63 M/uL (4.2-5.4) Hemoglobin 14.3 g/dL (12.0-16.0) Hematocrit 41.7 % (37-47) Mean Corpuscular Volume 90.1 fL (80-100) Mean Corpuscular Hemoglobin 30.9 pg (25-34) Mean Corpuscular Hemoglobin Concent 34.3 g/dl (32-36) Platelet Count 325 K/uL (130-400) Mean Platelet Volume 9.0 fL (7.4-10.4) Neutrophils (%) (Auto) 63.6 % Lymphocytes (%) (Auto) 23.8 % Monocytes (%) (Auto) 9.6 % Eosinophils (%) (Auto) 2.4 % Basophils (%) (Auto) 0.4 % Neutrophils # (Auto) 6.87 K/uL (1.4-6.5) Lymphocytes # (Auto) 2.57 K/uL (1.2-3.4) Monocytes # (Auto) 1.04 K/uL (0.11-0.59) Eosinophils # (Auto) 0.26 K/uL (0-0.5) Basophils # (Auto) 0.04 K/uL (0-0.2) RDW Standard Deviation 39.9 fL (36.4-46.3) RDW Coefficient of Variation 12.2 % (11.5-14.5) Immature Granulocyte % (Auto) 0.2 % Immature Granulocyte # (Auto) 0.02 K/uL (0.00-0.02) Anion Gap 5.0 mmol/L (3-11) Est Creatinine Clear Calc Drug Dose 78.3 ml/min Estimated GFR () 102.6 Estimated GFR (Non- 88.5 BUN/Creatinine Ratio 19.0 (10-20) Calcium Level 9.0 mg/dl (8.5-10.1) Total Bilirubin 0.5 mg/dl (0.2-1) Direct Bilirubin 0.1 mg/dl (0-0.2) Aspartate Amino Transf (AST/SGOT) 19 U/L (15-37) Alanine Aminotransferase (ALT/SGPT) 36 U/L (12-78) Alkaline Phosphatase 96 U/L (45-117) Total Protein 6.6 gm/dl (6.4-8.2) Albumin 3.3 gm/dl (3.4-5.0) Lipase 209 U/L (73-393) Laboratory results reviewed by me Medications Administered Medications (Trade) Dose Ordered Sig/Kt Route Start Time Stop Time Status Last Admin Dose Admin Ondansetron HCl (Zofran Inj) 4 mg NOW STAT IV 10/01/17 23:14 10/01/17 23:16 DC 10/01/17 23:45 4 MG Morphine Sulfate (MoRPHine SULFATE INJ) 4 mg NOW STAT IV 10/01/17 23:14 10/01/17 23:16 DC 10/01/17 23:45 4 MG Hydromorphone HCl (Dilaudid Inj) 1 mg NOW STAT IV 10/02/17 01:16 10/02/17 01:17 DC 10/02/17 01:31 1 MG ED Course 2309: The patient was evaluated in room A02. A complete history and physical exam was performed. 2314: Ordered Morphine Sulfate 4mg IV, Zofran Inj 4mg IV 0116: Ordered Dilaudid Inj 1mg IV 0128: I [facility] the [facility] The patient will be evaluated for further management and care. 0141: Upon reexamination, the patient was resting comfortably. I discussed the test results and treatment plan with her. The patient will be evaluated for further management. Medical Decision Differential diagnoses include but are not limited to; diverticulitis, diverticular abscess, bowel perforation, gastritis, bowel obstruction, UTI. Patient resting in no distress required multiple dosing of IV opiates. The concern is patient continues to have persistent diverticulitis on CT and is on a history strong IV antibiotic. The case was discussed with the hospitalist from [facility] for admission Consults Time Called: 118 Consulting Physician: [facility] Returned Call: [phone] I discussed the patient's case [facility]. The patient will be evaluated for further management and care. Impression Primary Impression: Diverticulitis Scribe Attestation The scribe's documentation has been prepared under my direction and personally reviewed by me in its entirety. I confirm that the note above accurately reflects all work, treatment, procedures, and medical decision making performed by me. Departure Information Dispostion Being Evaluated By Hospitalist Referrals Cj Rico III, M.D. (PCP) Patient Instructions My [facility]
[2017-10-01] MEDS ORDERED: OPTIRAY 320 IV PRN (23:30)
[2017-10-01 23:51] LABS: BASO % 0.4 %; BASO ABS # 0.04 K/uL (0-0.2); COMPLETE YES; EOS % 2.4 %; HEMATOCRIT 41.7 % (37-47); IG% 0.2 %; LYMPH % 23.8 %; LYMPH ABS # 2.57 K/uL (1.2-3.4); MEAN CELL VOLUME 90.1 fL (80-100); MEAN CORPUSCULAR HEMOGLOBIN 30.9 pg (25-34); MEAN CORPUSCULAR HGB CONC 34.3 g/dl (32-36); MONO % 9.6 %; NEUT % 63.6 %; PLATELET COUNT 325 K/uL (130-400); RED BLOOD COUNT 4.63 M/uL (4.2-5.4)
[2017-10-02 00:08] LABS: CREATININE 0.72 mg/dl (0.60-1.20); POTASSIUM 5.2 mmol/L (3.5-5.1)
[2017-10-02] MEDS ORDERED: HYDROmorphone INJ 1 MG/ML SYR IV STA (01:16)
[2017-10-02] MEDS ORDERED: HYDR-4079 PO (01:23)
[2017-10-02] MEDS ORDERED: ERTA1INJ IV (01:23)
[2017-10-02] MEDS ORDERED: SODIUM CHLORIDE 0.9% 1000ML 1,000 ML IV STA (01:36)
[2017-10-02 02:10] LABS: URINE APPEARANCE CLEAR (CLEAR); URINE BILIRUBIN NEG (NEG); URINE COLOR YELLOW; URINE NITRITE NEG (NEG); URINE PH 5.5 (4.5-7.5); URINE SPECIFIC GRAVITY 1.044 (1.000-1.030); UROBILINOGEN NEG (NEG); ZZUR CULT IF INDIC CLEAN CATCH NO
[2017-10-02 02:28] LABS: MANUAL MICROSCOPIC REQUIRED? NO; REVIEW REQ? NO
[2017-10-02] MEDS ORDERED: RANITIDINE HCL 150 MG TAB PO PRN (02:30)
[2017-10-02] MEDS ORDERED: LORAZEPAM 2 MG/ML 1 ML VIAL IV PRN (02:30)
[2017-10-02] MEDS ORDERED: SODIUM CHLORIDE 0.9% 1000ML 1,000 ML IV ONE (04:00)
[2017-10-02] MEDS ORDERED: ERTAPENEM IV 1 GM in SODIUM CHLOR 0.9% AD-VAN 50ML 50 ML IV SCH (04:00)
[2017-10-02] MEDS: HYDROCODONE/ACETAMI 10/325 TAB PO PRN ×3 (04:18→20:50)
[2017-10-02 04:28] LABS: BASO % 0.3 %; BASO ABS # 0.03 K/uL (0-0.2); COMPLETE YES; EOS % 2.5 %; HEMATOCRIT 39.8 % (37-47); IG% 0.2 %; LYMPH % 25.2 %; LYMPH ABS # 2.28 K/uL (1.2-3.4); MEAN CELL VOLUME 90.2 fL (80-100); MEAN CORPUSCULAR HEMOGLOBIN 30.8 pg (25-34); MEAN CORPUSCULAR HGB CONC 34.2 g/dl (32-36); MEAN PLATELET VOLUME 8.8 fL (7.4-10.4); MONO % 9.7 %; NEUT % 62.1 %; PLATELET COUNT 288 K/uL (130-400); RED BLOOD COUNT 4.41 M/uL (4.2-5.4); WHITE BLOOD COUNT 9.05 K/uL (4.8-10.8)
[2017-10-02 04:46] LABS: BUN/CREATININE RATIO 18.1 (10-20); CALCIUM 8.8 mg/dl (8.5-10.1); CREATININE 0.61 mg/dl (0.60-1.20); POTASSIUM 4.6 mmol/L (3.5-5.1)
[2017-10-02 04:48] VITALS: BP 134/87; PULSE 73; TEMP 36.9; O2SAT 94; Ht 157.5 cm; Wt 85.3 kg
--- NOTE | 2017-10-02 05:30 | HISTORY & PHYSICAL EXAMINATION ---
DATE OF ADMISSION: 10/02/2017 PRIMARY CARE DOCTOR: Cj Rico MD CHIEF COMPLAINT: Abdominal pain. History was obtained from the patient and records. HISTORY OF PRESENT ILLNESS: Medical history is significant for recurrent diverticulitis, hypertension, PAF status post ablation, hyperlipidemia, COPD, past tobacco abuse as per records, hypothyroidism. Recent confinement about 2 weeks ago for LGIB secondary to recurrent diverticulitis. Patient discharged on IV ertapenem course as per ID recommendation. Patient also seen by GI and Surgery during confinement. Outpatient colorectal surgery referral was recommended after colonoscopy. At home, patient is comfortable. Stools mushy, 4 times a day. Yesterday, she noted achy left lower quadrant pain going across with nausea, no vomiting, no fever, no chills, no bloody stools. Patient was still on the last 2 days of Ertapenem course. She had scallops, some noodles prior to abdominal pain. [facility] case coordinator recommended going back to a soft diet. Patient was brought to the Emergency Room. Patient went to the Emergency Room because of intractable pain. MEDICAL HISTORY: As above. Last colonoscopy in August 2016 showed hyperplastic polyps and diverticulosis. SURGERIES: Neck surgery, breast reduction, appendectomy, oophorectomy, tonsillectomy, hysterectomy. HOME MEDICATIONS: Include; ertapenem, Proventil, vitamin D, [place], lisinopril, fish oil, Zantac, Valtrex and Ambien. ALLERGIES: TO FENTANYL, P.O. METRONIDAZOLE, BACTRIM, LEVOFLOXACIN, PENICILLIN AND SULFA. FAMILY HISTORY: Heart disease. PERSONAL AND SOCIAL HISTORY: Past tobacco abuse. No chronic intake of alcoholic beverages. 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 REVIEW OF SYSTEMS: As per HPI. All other ROS negative. PHYSICAL EXAMINATION: VITAL SIGNS: Blood pressure was noted to be 114/79, pulse rate 95, RR 18 and sats 98 on room air. GENERAL: Noted to be obese, slightly anxious, no respiratory distress. SKIN: Normal color. Warm. HEENT: [place] palpebral conjunctivae. No ptosis. Dry buccal mucosa. NECK: Short neck. No tenderness. CHEST: Clear to auscultation. No tenderness. CV: Regular rate and rhythm. No murmur. Palpable LE pulses. ABDOMEN: Distention , Left lower quadrant tenderness. EXTREMITIES: Minimal LE edema, no tenderness. No gross deformities. NEUROLOGIC: Coherent, no gross focality. LABORATORIES: Hemoglobin 14.3, hematocrit 41.7, white cell 10.8 and platelets 200 Sodium 134, potassium 5.2, chloride 103, CO2 26, BUN 14, creatinine 0.7 and glucose 97. LFTs, lipase normal. CT of abdomen and pelvis initial read showed acute diverticulitis. ASSESSMENT: 1. Recurrent diverticulitis ongoing ertapenem course. No sepsis. unclear dietary precautions/instructions on discharge. 2. Loose mushy stools rule out C. difficile 3. Hypertension, blood pressure on the lower side Erratic blood pressure at home as per patient SBP 90s-150s. 4. Hyperkalemia, clinical dehydration, medications contributory. Noted on outpatient blood work from about 2 weeks ago. 5. History PE/DVT sp anticoagulation 6. hx of PAF status post ablation. 7. Past tobacco abuse. PLAN: GMF IV Ertapenem. Analgesia, clear liquids for now. Patient will need clear dietary recommendations from Nutrition service prior to discharge. stool cdif GI consult, ID consult RE recurrent diverticulitis, ongoing antibiotic Rx Outpatient colonoscopy, colorectal surgery evaluation. NSS, Follow potassium. Hold home ACEI for now. May need to resume ACEI at a lower dose given predisposition to hyperkalemia. DVT prophylaxis, Lovenox subQ. Full code. . MTDD
[2017-10-02] MEDS ORDERED: LORAZEPAM INJ 0.5 MG in SYRINGE 0.75 ML IV PRN (07:00)
--- NOTE | 2017-10-02 07:27 | DIAGNOSTIC IMAGING REPORT ---
CT SCAN OF THE ABDOMEN AND PELVIS WITH IV CONTRAST CLINICAL HISTORY: Left lower quadrant abdominal pain. COMPARISON STUDY: Prior abdominal CT scans, most recently dated 09/17/2017. TECHNIQUE: Following the IV administration of 116 cc of Optiray 320, CT scan of the abdomen and pelvis is performed from the lung bases to the proximal femora. Images are reviewed in the axial, sagittal, and coronal planes. IV contrast was administered without complication. A dose lowering technique was utilized adhering to the principles of ALARA. The examination is degraded by large body habitus, and by streak artifact from the body wall abutting the CT gantry. CT DOSE: 964.71 mGy.cm FINDINGS: Lung bases: The heart is normal in size and without pericardial effusion. A calcified granuloma is seen in the lingula. The lung bases are otherwise clear noting dependent atelectasis. There is a small hiatal hernia. Liver: The contrast-enhanced liver is enlarged, measuring 20 cm in length. The liver demonstrates diffusely diminished attenuation consistent with hepatic steatosis. There is no intrahepatic biliary ductal dilatation. The hepatic veins and portal veins are patent. Gallbladder: Unremarkable. Spleen: Normal in size and attenuation. Pancreas: Unremarkable. Adrenal glands: Unremarkable. Kidneys: The contrast enhanced kidneys are normal in size and without hydronephrosis. The kidneys enhance symmetrically. Abdominal vasculature: The abdominal aorta is normal in course and caliber noting mild to moderate atherosclerotic calcification. Bowel: There is moderate colonic diverticulosis. There is wall thickening with pericolonic inflammation and fluid seen involving the sigmoid colon consistent with acute diverticulitis, which is similar to prior examinations. There is no evidence of diverticular abscess. Fecal retention is noted in the right colon. No bowel obstruction is seen. The appendix is not visualized. Peritoneum: There is no intraperitoneal free air or abdominal ascites. There is a small fat-containing umbilical hernia. Lymphadenopathy: None. Pelvic viscera: The bladder is normal as visualized. The uterus is surgically absent. No adnexal lesion is seen. Skeletal structures: The skeletal structures are osteopenic. There is mild lumbosacral spondylosis and scoliosis. Postoperative change is noted at L5-S1. A large hemangioma is noted in the body of T2. No lytic or blastic lesions are seen. There is calcific tendinopathy of the hamstrings tendons. IMPRESSION: 1. Findings are consistent with acute sigmoid diverticulitis. No intraperitoneal free air is seen and there is no evidence of abscess. 2. The patient has had diverticulitis at this site on several prior examinations. If not recently performed, follow-up with colonoscopy is recommended for further assessment. 3. Hepatomegaly and hepatic steatosis. 4. Additional findings as above. Electronically signed by: Frank Mendez M.D. 10/02/2017 7:25 AM Dictated Date/Time: 10/02/2017 7:15 AM
[2017-10-02 07:33] LABS: INR 1.1 (0.9-1.1); PROTHROMBIN TIME (PATIENT) 11.5 SECONDS (9.0-12.0)
[2017-10-02 08:30] VITALS: BP 113/71; PULSE 73; TEMP 37.1; O2SAT 96
[2017-10-02] MEDS: LACTOBACILLUS ACIDOPHILUS (FLORANEX) TAB PO SCH (09:17)
[2017-10-02] MEDS: LEVOTHYROXINE 100 MCG TAB PO SCH (09:18)
[2017-10-02] MEDS: ENOXAPARIN 40 MG/0.4 ML SYR SQ SCH (09:18)
[2017-10-02] MEDS: ACETAMINOPHEN 325 MG TAB PO PRN (09:22)
--- NOTE | 2017-10-02 11:03 | Medical Consult ---
Consultation Date of Consultation: Oct 02, 2017. Attending Physician: Daniele Jernigan MD Reason for Consultation: Recurrent diverticulitis History of Present Illness 62-year-old female well known to me from recent hospitalization and subsequent Infectious Disease outpatient follow-up, with history of multiple recurrences of acute diverticulitis, felt not to be candidate for surgical resection. She was recently rehospitalized with another bout of diverticulitis, her most significant and severe that she can remember, treated with IV antibiotics with improvement, with discharged home on ertapenem IV to complete 2 weeks of therapy. She was seen last week in the office, and was making slow improvement , but still with significant pain and so ertapenem therapy was continued for another week. However over the last 24 hours she has developed markedly worsening abdominal pain, currently 7/10 in intensity, not associated with fever but having chills. Having loose stools, no blood. Has been restarted on ertapenem empirically. Past Medical/Surgical History Medical Problems: (1) Flu Status: Acute (2) Viral URI Status: Acute (3) Wheezing Status: Acute Medical Problems: (1) Asthma (2) Diverticulitis (3) DIVERTICULITIS COLON (W/O MENT OF HEMORRHAGE) (4) Gastroesophageal reflux disease (5) HX-VENOUS THROMBOSIS&EMBOLISM (6) HYPERLIPIDEMIA NEC/NOS (7) HYPERTENSION NOS (8) Hypothyroidism (9) Irritable colon (10) s/p appendectomy (11) s/p cervical discectomy + fusion (12) s/p hysterectomy (13) s/p lumbar hemilaminectomy (14) SPINAL STENOSIS-LUMBAR (15) Spine surgery Family History FH: cancer FH: heart disease Hypertension Social History Smoking Status: Never Smoker Marital Status: Housing Status: lives with family Allergies Coded Allergies: Fentanyl (Verified Allergy, Unknown, itching, 10/02/17) Levofloxacin (Verified Allergy, Unknown, CAN'T TAKE WITH FLECAINIDE, ) gmg Penicillins (Verified Allergy, Unknown, RASH, 10/02/17) ALLERGY IS RASH Sulfa Drugs (Verified Allergy, Unknown, 10/02/17) Replaces SULFAMETHOXAZ Sulfamethoxazole (Verified Allergy, Unknown, 10/02/17) Replaces SULFAMETHOXAZ Trimethoprim (Verified Allergy, Unknown, 10/02/17) Replaces SULFAMETHOXAZ Metronidazole (Verified Adverse Reaction, Unknown, 0, 10/02/17) GI upset w PO Flagyl; px can tolerate IV Flagyl Current Inpatient Medications Current Inpatient Medications Medications (Trade) Dose Ordered Sig/Kt Route Start Time Stop Time Status Last Admin Dose Admin Ioversol (Optiray 320) 100 ml UD PRN IV 10/01/17 23:30 10/05/17 23:29 Ertapenem 1 gm/ Sodium Chloride 50 ml @ 120 mls/hr Q24H IV 10/02/17 04:00 10/12/17 03:59 10/02/17 04:15 120 MLS/HR Ertapenem (Consult) 1 ea UD PRN N/A 10/03/17 09:00 11/02/17 08:59 Sodium Chloride 1,000 ml @ 75 mls/hr [id number] ONCE IV 10/02/17 04:00 10/02/17 17:19 10/02/17 04:15 75 MLS/HR Enoxaparin Sodium (Lovenox Inj) 40 mg Q24H SQ 10/02/17 08:00 11/01/17 07:59 10/02/17 09:18 40 MG Acetaminophen (Tylenol Tab) 650 mg Q4H PRN PO 10/02/17 02:30 11/01/17 02:29 10/02/17 09:22 650 MG Acetaminophen/ Hydrocodone Bitart ([place] 10/325 Tab) pain not relieved by tyle... Q4 PRN PO 10/02/17 02:30 10/16/17 02:29 10/02/17 04:18 2 TAB Lactobacillus Acidophilus (Floranex Tab) 4 tab DAILY PO 10/02/17 09:00 11/01/17 08:59 10/02/17 09:17 4 TAB Levothyroxine Sodium (Synthroid Tab) 100 mcg DAILYBB PO 10/02/17 07:00 11/01/17 06:59 10/02/17 09:18 100 MCG Ranitidine HCl (zANTac TAB) 150 mg DAILY PRN PO 10/02/17 02:30 11/01/17 02:29 Zolpidem Tartrate (Ambien Tab) 10 mg HS PRN PO 10/02/17 02:30 11/01/17 02:29 Hydromorphone HCl (Dilaudid Inj) 0.5 mg Q3H PRN IV 10/02/17 02:30 10/16/17 02:29 Ondansetron HCl (Zofran Inj) 4 mg Q6H PRN IV 10/02/17 02:30 11/01/17 02:29 Lorazepam (Ativan Inj) 0.5 mg Q4H PRN IV 10/02/17 02:30 11/01/17 02:29 Heparin Sodium (Porcine) (Heparin 10 Unit/ ml 5 ml Flush) 5 ml PRN PRN FLUSH 10/02/17 07:00 11/01/17 06:59 Lorazepam 0.5 mg/ Syringe 1 ml @ 1 mls/min Q4H PRN IV 10/02/17 07:00 11/01/17 06:59 Review of Systems Constitutional: + chills, + weakness, + fatigue, No fever Eyes: No problem reported ENT: No problem reported Respiratory: No problem reported Cardiovascular: No problem reported Abdomen: + pain Musculoskeletal: No problem reported Genitourinary - Female: No problem reported Neurologic: No problem reported Psychiatric: No problem reported Endocrine: No problem reported Hematologic / Lymphatic: No problem reported Integumentary: No problem reported Allergic / Immunologic: No problem reported Physical Exam Date Time Temp Pulse Resp B/P (MAP) Pulse Ox O2 Delivery O2 Flow Rate FiO2 10/02/17 08:30 37.1 73 18 113/71 (85) 96 10/02/17 08:00 Room Air 10/02/17 04:48 36.9 73 18 134/87 94 Room Air 10/02/17 02:09 87 18 106/54 98 10/02/17 01:43 90 18 106/54 98 Room Air 10/01/17 23:07 36.9 95 18 114/79 98 Room Air General Appearance: WD/WN, no apparent distress Head: normocephalic, atraumatic Eyes: normal inspection, EOMI, sclerae normal ENT: normal ENT inspection, hearing grossly normal, pharynx normal Neck: supple, no adenopathy, thyroid normal, trachea midline Respiratory/Chest: chest non-tender, lungs clear, normal breath sounds, no respiratory distress Cardiovascular: regular rate, rhythm, no gallop, no murmur Abdomen/GI: normal bowel sounds, no organomegaly, no pulsatile mass, + tenderness Back: normal inspection, no CVA tenderness Extremities/Musculoskelatal: normal inspection, normal capillary refill, non- tender Neurologic/Psych: alert, oriented x 3 Skin: normal color, warm/dry, no rash Lymphatic: no adenopathy Laboratory Results Date/Time Source Procedure Growth Status 10/01/17 23:40 Blood Blood Culture Pending Received 10/01/17 23:35 Blood Blood Culture Pending Received Last 24 Hours Test 10/01/17 23:40 10/02/17 01:35 10/02/17 04:16 10/02/17 07:10 White Blood Count 10.80 K/uL 9.05 K/uL Red Blood Count 4.63 M/uL 4.41 M/uL Hemoglobin 14.3 g/dL 13.6 g/dL Hematocrit 41.7 % 39.8 % Mean Corpuscular Volume 90.1 fL 90.2 fL Mean Corpuscular Hemoglobin 30.9 pg 30.8 pg Mean Corpuscular Hemoglobin Concent 34.3 g/dl 34.2 g/dl Platelet Count 325 K/uL 288 K/uL Mean Platelet Volume 9.0 fL 8.8 fL Neutrophils (%) (Auto) 63.6 % 62.1 % Lymphocytes (%) (Auto) 23.8 % 25.2 % Monocytes (%) (Auto) 9.6 % 9.7 % Eosinophils (%) (Auto) 2.4 % 2.5 % Basophils (%) (Auto) 0.4 % 0.3 % Neutrophils # (Auto) 6.87 K/uL 5.61 K/uL Lymphocytes # (Auto) 2.57 K/uL 2.28 K/uL Monocytes # (Auto) 1.04 K/uL 0.88 K/uL Eosinophils # (Auto) 0.26 K/uL 0.23 K/uL Basophils # (Auto) 0.04 K/uL 0.03 K/uL RDW Standard Deviation 39.9 fL 40.5 fL RDW Coefficient of Variation 12.2 % 12.3 % Immature Granulocyte % (Auto) 0.2 % 0.2 % Immature Granulocyte # (Auto) 0.02 K/uL 0.02 K/uL Sodium Level 134 mmol/L 136 mmol/L Potassium Level 5.2 mmol/L 4.6 mmol/L Chloride Level 103 mmol/L 103 mmol/L Carbon Dioxide Level 26 mmol/L 28 mmol/L Anion Gap 5.0 mmol/L 5.0 mmol/L Blood Urea Nitrogen 14 mg/dl 11 mg/dl Creatinine 0.72 mg/dl 0.61 mg/dl Est Creatinine Clear Calc Drug Dose 78.3 ml/min 92.5 ml/min Estimated GFR () 102.6 111.0 Estimated GFR (Non- 88.5 95.8 BUN/Creatinine Ratio 19.0 18.1 Random Glucose 97 mg/dl 92 mg/dl Calcium Level 9.0 mg/dl 8.8 mg/dl Total Bilirubin 0.5 mg/dl Direct Bilirubin 0.1 mg/dl Aspartate Amino Transf (AST/SGOT) 19 U/L Alanine Aminotransferase (ALT/SGPT) 36 U/L Alkaline Phosphatase 96 U/L Total Protein 6.6 gm/dl Albumin 3.3 gm/dl Lipase 209 U/L Urine Color YELLOW Urine Appearance CLEAR Urine pH 5.5 Urine Specific [place] 1.044 Urine Protein NEG Urine Glucose (UA) NEG Urine Ketones NEG Urine Occult Blood NEG Urine Nitrite NEG Urine Bilirubin NEG Urine Urobilinogen NEG Urine Leukocyte Esterase NEG Prothrombin Time 11.5 SECONDS Prothromb Time International Ratio 1.1 Patient Name: SHONA HOLLAND Unit Number: [id number] Dictated: 10/02/17714 Transcribed: 10/02/17714 EV Printed Date/Time: [~ rep prt dt]/[~ rep prt tm] [~ rep ct labl] - [~ rep ct ivnm] [facility] [place] [address] Dictated: 10/02/17714 Transcribed: 10/02/17714 EV Printed Date/Time: [~ rep prt dt]/[~ rep prt tm] [~ rep ct labl] - [~ rep ct ivnm] CT SCAN OF THE ABDOMEN AND PELVIS WITH IV CONTRAST CLINICAL HISTORY: Left lower quadrant abdominal pain. COMPARISON STUDY: Prior abdominal CT scans, most recently dated 09/17/2017. TECHNIQUE: Following the IV administration of 116 cc of Optiray 320, CT scan of the abdomen and pelvis is performed from the lung bases to the proximal femora. Images are reviewed in the axial, sagittal, and coronal planes. IV contrast was administered without complication. A dose lowering technique was utilized adhering to the principles of ALARA. The examination is degraded by large body habitus, and by streak artifact from the body wall abutting the CT gantry. CT DOSE: 964.71 mGy.cm FINDINGS: Lung bases: The heart is normal in size and without pericardial effusion. A calcified granuloma is seen in the lingula. The lung bases are otherwise clear noting dependent atelectasis. There is a small hiatal hernia. Liver: The contrast-enhanced liver is enlarged, measuring 20 cm in length. The liver demonstrates diffusely diminished attenuation consistent with hepatic steatosis. There is no intrahepatic biliary ductal dilatation. The hepatic veins and portal veins are patent. Gallbladder: Unremarkable. Spleen: Normal in size and attenuation. Pancreas: Unremarkable. Adrenal glands: Unremarkable. Kidneys: The contrast enhanced kidneys are normal in size and without hydronephrosis. The kidneys enhance symmetrically. Abdominal vasculature: The abdominal aorta is normal in course and caliber noting mild to moderate atherosclerotic calcification. Bowel: There is moderate colonic diverticulosis. There is wall thickening with pericolonic inflammation and fluid seen involving the sigmoid colon consistent with acute diverticulitis, which is similar to prior examinations. There is no evidence of diverticular abscess. Fecal retention is noted in the right colon. No bowel obstruction is seen. The appendix is not visualized. Peritoneum: There is no intraperitoneal free air or abdominal ascites. There is a small fat-containing umbilical hernia. Lymphadenopathy: None. Pelvic viscera: The bladder is normal as visualized. The uterus is surgically absent. No adnexal lesion is seen. Skeletal structures: The skeletal structures are osteopenic. There is mild lumbosacral spondylosis and scoliosis. Postoperative change is noted at L5-S1. A large hemangioma is noted in the body of T2. No lytic or blastic lesions are seen. There is calcific tendinopathy of the hamstrings tendons. IMPRESSION: 1. Findings are consistent with acute sigmoid diverticulitis. No intraperitoneal free air is seen and there is no evidence of abscess. 2. The patient has had diverticulitis at this site on several prior examinations. If not recently performed, follow-up with colonoscopy is recommended for further assessment. 3. Hepatomegaly and hepatic steatosis. 4. Additional findings as above. Electronically signed by: Frank Mendez M.D. 10/02/2017 7:25 AM Dictated Date/Time: 10/02/2017 7:15 AM The status of this report is Signed. Draft = Not yet reviewed or approved by Radiologist. Signed = Reviewed and approved by Radiologist. <AttendingPhy>Daniele Jernigan MD</AttendingPhy> <FamilyPhy>Cj Rico III, M.D.</FamilyPhy> <PrimaryPhy>Cj Rico III, M.D.</PrimaryPhy> < UnitNumber>[id number]</UnitNumber> <VisitNumber>[id number]</VisitNumber> < PatientName>SHONA HOLLAND</PatientName> <DateOfBirth>1955</DateOfBirth> < Location>[facility]</Location> <ServiceDate>10/01/17</ServiceDate> <MNE>ESINDI</MNE > <OrderingPhy>Arcenio Mendes DO</OrderingPhy> <OrderingPhyMNE>f rep ord dr mosher </OrderingPhyMNE> <DictatingPhyMNE>f rep dict dr mosher</DictatingPhyMNE> < CCListMNE>f rep ct mne</CCListMNE> <AdmittingPhyMNE>f pt admit dr mosher</ AdmittingPhyMNE> <AttendingPhyMNE>f pt attend dr mosher</AttendingPhyMNE> <ConsultingPhyMNE>f pt consult dr mosher</ConsultingPhyMNE> <FamilyPhyMNE>f pt fam dr mosher</FamilyPhyMNE> <OtherPhyMNE>f pt other dr mosher</OtherPhyMNE> < PrimaryPhyMNE>f pt prim care dr mosher</PrimaryPhyMNE> <ReferringPhyMNE>f pt referring dr mosher</ReferringPhyMNE> Assessment & Plan Patient with persistent sigmoid diverticulitis despite ongoing therapy with ertapenem. Not clear why pain recurred with such a vengeance. Given possibility of resistant pathogen, and change patient to combination of daptomycin and imipenem pending further culture results. Await GI and surgical evaluations. Will follow.
[2017-10-02 11:18] VITALS: BP 130/86; PULSE 68; TEMP 36.9; O2SAT 97
--- NOTE | 2017-10-02 13:11 | Gastrointestinal Consultation ---
Gastrointestinal Consultation Date of Consultation: Oct 02, 2017 Attending Physician: Daniele Jernigan Consulting Physician: Bro Lopez Reason for Consultation: Diverticulitis History of Present Illness Patient is a 62 year old female w PMHx of recurrent diverticulitis, HTN, Afib s/ p ablation, hyperlipidemia, COPD, tobacco abuse, hypothyroidism who presented to ED w c/o abd pain. She was admitted recently from 09/17 to 09/21 for diverticulitis. Was DC'd home on IV Ertapenem per Infectious Disease's recs. She would have completed her last dose today. She reports initially ate mostly liquid consistency foods, then started to eat spaghetti and scallops, started to have severe LLQ abd pain. She denies any fever, chills, CP, SOB, N/V. Stools are semi formed, 4x yesterday per her report. Denies any rectal bleeding. Upon eval, labs overall unremarkable - no leukocytosis, anemia, coagulopathy, CMP normal. She had CT abd/pelvis w IV contrast which again demonstrated sigmoid diverticulitis w/o abscess or perforation. She does have hepatomegaly and hepatic steatosis. Pt had her last colonoscopy 08/2016 which showed ext hemorrhoids, diverticulosis , hyperplastic polyps. After last admission, she was scheduled to undergo repeat colonoscopy by Dr. Roth on 11/21/17. Then scheduled to see Dr. Hopkins to discuss possible colonic resection given multiple recurrent diverticulitis next November. Past Medical/Surgical History Medical Problems: (1) Flu Status: Acute (2) Viral URI Status: Acute (3) Wheezing Status: Acute Past Medical History: See above. Past Surgical History: Neck surgery, breast reduction, appendectomy, oophorectomy, tonsillectomy, hysterectomy, breast aspiration Family History FH: cancer FH: heart disease Hypertension Social History Smoking Status: Never Smoker Alcohol Use: occasionally Marital Status: Housing Status: lives with family Allergies Coded Allergies: Fentanyl (Verified Allergy, Unknown, itching, 10/02/17) Levofloxacin (Verified Allergy, Unknown, CAN'T TAKE WITH FLECAINIDE, ) gmg Penicillins (Verified Allergy, Unknown, RASH, 10/02/17) ALLERGY IS RASH Sulfa Drugs (Verified Allergy, Unknown, 10/02/17) Replaces SULFAMETHOXAZ Sulfamethoxazole (Verified Allergy, Unknown, 10/02/17) Replaces SULFAMETHOXAZ Trimethoprim (Verified Allergy, Unknown, 10/02/17) Replaces SULFAMETHOXAZ Metronidazole (Verified Adverse Reaction, Unknown, 0, 10/02/17) GI upset w PO Flagyl; px can tolerate IV Flagyl Current Medications Home Meds and Scripts Medications Dose Route/Sig Max Daily Dose Days Date Category Invanz (Ertapenem Sodium) 1 Gm Inj 1 Gm IV QAM 10/02/17 Reported [place] 10MG/325MG (Acetaminophen/Hydrocodone Bitart) Tab 1 Tab PO Q6 PRN 10/02/17 Reported Floranex (Lactobacillus Acidophilus) 1 Tab Tab 4 Tab PO DAILY 5 09/21/17 Rx Synthroid (Levothyroxine Sodium) 100 Mcg Tab 100 Mcg PO DAILYBB 30 09/21/17 Rx Ambien (Zolpidem Tartrate) 10 Mg Tab 10 Mg PO HS 01/05/17 Reported Valtrex (Valacyclovir Hcl) 1 Gm Tab 1,000 Mg PO DAILY PRN 01/05/17 Reported Fish Oil ([place]-3 Fatty Acids) 1 Cap Cap 1 Cap PO DAILY 01/05/17 Reported Vitamin D3 (Cholecalciferol) 1,000 Unit Tab 1 Tab PO DAILY 90 01/05/17 Reported Proventil 0.083% 2.5MG/3ML (Albuterol Sulf) 2.5 Mg/3 Ml Nebu 2.5 Mg INH Q4 PRN 01/05/17 Reported Zantac (Ranitidine HCl) 150 Mg Tab 150 Mg PO PRN 05/25/15 Reported Prinivil (Lisinopril) 20 Mg Tab 20 Mg PO QAM 03/16/14 Reported Review of Systems Constitutional: No fever, No chills Respiratory: No cough, No shortness of breath Cardiac: + problem reported (c/o chest tightness but denies any SOB, radiating pain to jaw or arms, dyspnea on exertion, palpitation ) Abdomen: + pain (LLQ, RUQ), No nausea, No vomiting, No GI bleeding Physical Exam Date Time Temp Pulse Resp B/P (MAP) Pulse Ox O2 Delivery O2 Flow Rate FiO2 10/02/17 11:18 36.9 68 18 130/86 (101) 97 Room Air 10/02/17 08:30 37.1 73 18 113/71 (85) 96 10/02/17 08:00 Room Air 10/02/17 04:48 36.9 73 18 134/87 94 Room Air 10/02/17 02:09 87 18 106/54 98 10/02/17 01:43 90 18 106/54 98 Room Air 10/01/17 23:07 36.9 95 18 114/79 98 Room Air General Appearance: WD/WN, no apparent distress, + obese Eyes: normal inspection, PERRL, EOMI Neck: supple, no JVD, trachea midline Respiratory/Chest: normal breath sounds, no respiratory distress, no accessory muscle use Cardiovascular: regular rate, rhythm, no gallop, no murmur Abdomen: normal bowel sounds, + tenderness (LLQ) Extremities: normal inspection, no pedal edema, no calf tenderness Neurologic/Psych: alert, normal mood/affect, oriented x 3 Skin: normal color, no jaundice, no rash Laboratory Results Last 24 Hours Test 10/01/17 23:40 10/02/17 01:35 10/02/17 04:16 10/02/17 07:10 White Blood Count 10.80 K/uL 9.05 K/uL Red Blood Count 4.63 M/uL 4.41 M/uL Hemoglobin 14.3 g/dL 13.6 g/dL Hematocrit 41.7 % 39.8 % Mean Corpuscular Volume 90.1 fL 90.2 fL Mean Corpuscular Hemoglobin 30.9 pg 30.8 pg Mean Corpuscular Hemoglobin Concent 34.3 g/dl 34.2 g/dl Platelet Count 325 K/uL 288 K/uL Mean Platelet Volume 9.0 fL 8.8 fL Neutrophils (%) (Auto) 63.6 % 62.1 % Lymphocytes (%) (Auto) 23.8 % 25.2 % Monocytes (%) (Auto) 9.6 % 9.7 % Eosinophils (%) (Auto) 2.4 % 2.5 % Basophils (%) (Auto) 0.4 % 0.3 % Neutrophils # (Auto) 6.87 K/uL 5.61 K/uL Lymphocytes # (Auto) 2.57 K/uL 2.28 K/uL Monocytes # (Auto) 1.04 K/uL 0.88 K/uL Eosinophils # (Auto) 0.26 K/uL 0.23 K/uL Basophils # (Auto) 0.04 K/uL 0.03 K/uL RDW Standard Deviation 39.9 fL 40.5 fL RDW Coefficient of Variation 12.2 % 12.3 % Immature Granulocyte % (Auto) 0.2 % 0.2 % Immature Granulocyte # (Auto) 0.02 K/uL 0.02 K/uL Sodium Level 134 mmol/L 136 mmol/L Potassium Level 5.2 mmol/L 4.6 mmol/L Chloride Level 103 mmol/L 103 mmol/L Carbon Dioxide Level 26 mmol/L 28 mmol/L Anion Gap 5.0 mmol/L 5.0 mmol/L Blood Urea Nitrogen 14 mg/dl 11 mg/dl Creatinine 0.72 mg/dl 0.61 mg/dl Est Creatinine Clear Calc Drug Dose 78.3 ml/min 92.5 ml/min Estimated GFR () 102.6 111.0 Estimated GFR (Non- 88.5 95.8 BUN/Creatinine Ratio 19.0 18.1 Random Glucose 97 mg/dl 92 mg/dl Calcium Level 9.0 mg/dl 8.8 mg/dl Total Bilirubin 0.5 mg/dl Direct Bilirubin 0.1 mg/dl Aspartate Amino Transf (AST/SGOT) 19 U/L Alanine Aminotransferase (ALT/SGPT) 36 U/L Alkaline Phosphatase 96 U/L Total Protein 6.6 gm/dl Albumin 3.3 gm/dl Lipase 209 U/L Urine Color YELLOW Urine Appearance CLEAR Urine pH 5.5 Urine Specific [place] 1.044 Urine Protein NEG Urine Glucose (UA) NEG Urine Ketones NEG Urine Occult Blood NEG Urine Nitrite NEG Urine Bilirubin NEG Urine Urobilinogen NEG Urine Leukocyte Esterase NEG Prothrombin Time 11.5 SECONDS Prothromb Time International Ratio 1.1 Test 10/02/17 11:12 Troponin I < 0.015 ng/ml Impression Patient is a 62 year old female recently admitted for diverticulitis, returned w LLQ abd pain. Repeat CT showed similar appearance sigmoid diverticulitis w/o abscess or perforation. Dr. Solano (I.D.) had seen pt during this admission again. Plan - Antibx management per ID (Ertapenem, Daptomycin) - Add Dicyclomine 10mg BID prn abd pain - FL diet, advance slowly to low residue - Consult General Surgery for recurrent diverticulitis and consideration for sigmoid resection. - Given hx of Afib, chest tightness will order EKG, Troponin -> normal. I have seen, examined and agree with the plan as outlined by . GHANSHYAM Mc as above. -exam reveals soft abd with painful in the both the right and left lower quadrants. -Uncomplicated diverticulitis that appears to me by history of smoldering approach without improvement after her last admission -Suggest surgical consultation -Unsure of the utility of a repeat colonoscopy prior to anticipated surgery given that she had one in August 2016. Bro Lopez M.D.
[2017-10-02] MEDS: HYDROmorphone INJ 0.5 MG/0.5 ML SYR IV PRN (13:26)
[2017-10-02] MEDS: IMIPENEM/CILASTATIN IV 500 MG in DEXTROSE 5% 100ML 100 ML IV SCH ×2 (13:49→19:48)
[2017-10-02] MEDS ORDERED: DOCUSATE SODIUM 100 MG/10 ML UDC PO ONE (14:15)
[2017-10-02] MEDS: DAPTOmycin IV 500 MG in SYRINGE 0 ML IV SCH (14:43)
--- NOTE | 2017-10-02 15:16 | Progress Note ---
Internal Med Progress Note Date of Service: Oct 02, 2017. Provider Documentation: SUBJECTIVE: Seen and examined at bedside States having persistent abd pain Nausea this morning but no vomiting Denies chest pain, SOB, diarrhea Tolerating diet Offers no other complaints Family at bedside OBJECTIVE: Vital Signs-as noted below Physical Exam: General Appearance:Moderately built and nourished, no apparent distress Head: normocephalic, Atraumatic Eyes: normal inspection, EOMI, PERRL Neck: supple, Trachea midline Respiratory/Chest: Normal breath sounds, CTA Cardiovascular: S1, S2, No murmur Abdomen/GI:Soft, generalized tender, Bowel sounds present Extremities/Musculoskelatal:normal inspection, no edema Neurologic/Psych:AAOX3, grossly no focal neurological deficits Skin: normal color, warm Lab data as noted below. ASSESSMENT & PLAN: Uncomplicated/Recurrent diverticulitis: No improvement with ongoing ertapenem course No signs of sepsis Last Colonoscopy in Aug 2016 Continue IV Daptomycin and Primaxin per ID Blood cultures: pending Appreciate GI Input Advance to low fiber diet as tolerated Consulted General Surgery for possible sigmoid resection. Stool for C.diff pending Hypertension: Better Monitor Hyperkalemia: Resolved On IV fluids Monitor Hold ACEI for now H/O PE/DVT S/P anticoagulation H/O P.Afib S/P Ablation Stable Hypothyroidism: Continue levothyroxine DVT px: Lovenox SQ. Code Status: Full code Vital Signs: Date Time Temp Pulse Resp B/P (MAP) Pulse Ox O2 Delivery O2 Flow Rate FiO2 10/02/17 11:18 36.9 68 18 130/86 (101) 97 Room Air 10/02/17 08:30 37.1 73 18 113/71 (85) 96 10/02/17 08:00 Room Air 10/02/17 04:48 36.9 73 18 134/87 94 Room Air 10/02/17 02:09 87 18 106/54 98 10/02/17 01:43 90 18 106/54 98 Room Air 10/01/17 23:07 36.9 95 18 114/79 98 Room Air Lab Results: Results Past 24 Hours Test 10/01/17 23:40 10/02/17 01:35 10/02/17 04:16 10/02/17 07:10 Range/Units White Blood Count 10.80 9.05 4.8-10.8 K/uL Red Blood Count 4.63 4.41 4.2-5.4 M/uL Hemoglobin 14.3 13.6 12.0-16.0 g/dL Hematocrit 41.7 39.8 37-47 % Mean Corpuscular Volume 90.1 90.2 80-100 fL Mean Corpuscular Hemoglobin 30.9 30.8 25-34 pg Mean Corpuscular Hemoglobin Concent 34.3 34.2 32-36 g/dl Platelet Count 325 288 130-400 K/uL Mean Platelet Volume 9.0 8.8 7.4-10.4 fL Neutrophils (%) (Auto) 63.6 62.1 % Lymphocytes (%) (Auto) 23.8 25.2 % Monocytes (%) (Auto) 9.6 9.7 % Eosinophils (%) (Auto) 2.4 2.5 % Basophils (%) (Auto) 0.4 0.3 % Neutrophils # (Auto) 6.87 5.61 1.4-6.5 K/uL Lymphocytes # (Auto) 2.57 2.28 1.2-3.4 K/uL Monocytes # (Auto) 1.04 0.88 0.11-0.59 K/uL Eosinophils # (Auto) 0.26 0.23 0-0.5 K/uL Basophils # (Auto) 0.04 0.03 0-0.2 K/uL RDW Standard Deviation 39.9 40.5 36.4-46.3 fL RDW Coefficient of Variation 12.2 12.3 11.5-14.5 % Immature Granulocyte % (Auto) 0.2 0.2 % Immature Granulocyte # (Auto) 0.02 0.02 0.00-0.02 K/uL Sodium Level 134 136 136-145 mmol/L Potassium Level 5.2 4.6 3.5-5.1 mmol/L Chloride Level 103 103 98-107 mmol/L Carbon Dioxide Level 26 28 21-32 mmol/L Anion Gap 5.0 5.0 3-11 mmol/L Blood Urea Nitrogen 14 11 7-18 mg/dl Creatinine 0.72 0.61 0.60-1.20 mg/dl Est Creatinine Clear Calc Drug Dose 78.3 92.5 ml/min Estimated GFR () 102.6 111.0 Estimated GFR (Non- 88.5 95.8 BUN/Creatinine Ratio 19.0 18.1 10-20 Random Glucose 97 92 70-99 mg/dl Calcium Level 9.0 8.8 8.5-10.1 mg/dl Total Bilirubin 0.5 0.2-1 mg/dl Direct Bilirubin 0.1 0-0.2 mg/dl Aspartate Amino Transf (AST/SGOT) 19 15-37 U/L Alanine Aminotransferase (ALT/SGPT) 36 12-78 U/L Alkaline Phosphatase 96 45-117 U/L Total Protein 6.6 6.4-8.2 gm/dl Albumin 3.3 3.4-5.0 gm/dl Lipase 209 73-393 U/L Urine Color YELLOW Urine Appearance CLEAR CLEAR Urine pH 5.5 4.5-7.5 Urine Specific [place] 1.044 1.000-1.030 Urine Protein NEG NEG Urine Glucose (UA) NEG NEG Urine Ketones NEG NEG Urine Occult Blood NEG NEG Urine Nitrite NEG NEG Urine Bilirubin NEG NEG Urine Urobilinogen NEG NEG Urine Leukocyte Esterase NEG NEG Prothrombin Time 11.5 9.0-12.0 SECONDS Prothromb Time International Ratio 1.1 0.9-1.1 Test 10/02/17 11:12 Range/Units Troponin I < 0.015 0-0.045 ng/ml Microbiology Results 10/01/17 Blood Culture, Received Pending 10/01/17 Blood Culture, Received Pending
[2017-10-02 15:37] VITALS: BP 132/81; PULSE 97; TEMP 36.8; O2SAT 97
--- NOTE | 2017-10-02 17:11 | Surgery Consultation ---
Consultation Date of Consultation: Oct 02, 2017. Attending Physician: Daniele Jernigan MD Reason for Consultation: Recurrent diverticulitis History of Present Illness Florecita is a very pleasant 62 year-old female who presented to emergency department yesterday with complaint of increasing left lower abdominal pain with associated nausea. She was recently admitted for acute diverticulitis from 09/17/17-09/21/17 and was discharged home on IV Ertapenem. Today would of been her last day of antibiotics. She states she may have went home to early last admission because she still had some abdominal pain and didn't feel quite herself. She states she was doing fine with liquids but developed pain again once she started eating regular food. Denies of any fever, chills, vomiting, changes in bowel habits, diarrhea, constipation, rectal bleeding or blood in stools. Pain was located in left lower abdomen, rated 10/10 on admission. Pain is currently a 6/10 but still states her pain is worse than it was last admission. She has had recurrent episodes of diverticulitis in the last 8-10 years with this admission and last being the only two admission she can recall. Other episodes treated with PO antibiotics. She states she last had a colonoscopy by Dr. Roth in a year or two ago. Has scheduled colonoscopy for October of this year with Dr. Roth and then follow-up with Dr. Hopkins for discussion of colectomy. She was set up for appointment with Dr. Hopkins on from last admission but states she wasn't going to keep it because she needs a colonoscopy first which is scheduled in October. She is worried that she will need a colostomy for the rest of her life and very anxious about having recurrent episodes. CT scan showed sigmoid diverticulitis no abscess formation or perforation. Labs showed no leukocytosis. Vitals stable. Past Medical/Surgical History Medical Problems: 1. Hypertension 2. Hyperlipidemia 3. Hypothyroidism 4. Atrial fibrillation 5. Degenerative Disc disease 6. Recurrent diverticulitis Past Surgical History: 1. Lumbar hemilaminectomy 2. cervical discectomy and fusion 3. Hysterectomy 4. Appendectomy Family History FH: cancer FH: heart disease Hypertension Social History Smoking Status: Never Smoker Marital Status: Housing Status: lives with family Allergies Coded Allergies: Fentanyl (Verified Allergy, Unknown, itching, 10/02/17) Levofloxacin (Verified Allergy, Unknown, CAN'T TAKE WITH FLECAINIDE, ) gmg Penicillins (Verified Allergy, Unknown, RASH, 10/02/17) ALLERGY IS RASH Sulfa Drugs (Verified Allergy, Unknown, 10/02/17) Replaces SULFAMETHOXAZ Sulfamethoxazole (Verified Allergy, Unknown, 10/02/17) Replaces SULFAMETHOXAZ Trimethoprim (Verified Allergy, Unknown, 10/02/17) Replaces SULFAMETHOXAZ Metronidazole (Verified Adverse Reaction, Unknown, 0, 10/02/17) GI upset w PO Flagyl; px can tolerate IV Flagyl Home Medications Scheduled Cholecalciferol (Vitamin D3), 1 TAB PO DAILY Ertapenem Sodium (Invanz), 1 GM IV QAM Lactobacillus Acidophilus (Floranex), 4 TAB PO DAILY Levothyroxine Sodium (Synthroid), 100 MCG PO DAILYBB Lisinopril (Prinivil), 20 MG PO QAM [place]-3 Fatty Acids (Fish Oil), 1 CAP PO DAILY Ranitidine (Zantac), 150 MG PO PRN Zolpidem Tartrate (Ambien), 10 MG PO HS Scheduled PRN Albuterol Sulf (Proventil 0.083% 2.5MG/3ML), 2.5 MG INH Q4 PRN for SOB/Wheezing Hydrocodone/Acetaminophen 10MG/325MG ([place] 10MG/325MG), 1 TAB PO Q6 PRN for Pain Valacyclovir Hcl (Valtrex), 1,000 MG PO DAILY PRN for OUTBREAKS Current Inpatient Medications Current Inpatient Medications Medications (Trade) Dose Ordered Sig/Kt Route Start Time Stop Time Status Last Admin Dose Admin Ioversol (Optiray 320) 100 ml UD PRN IV 10/01/17 23:30 10/05/17 23:29 Sodium Chloride 1,000 ml @ 75 mls/hr [id number] ONCE IV 10/02/17 04:00 10/02/17 17:19 10/02/17 04:15 75 MLS/HR Enoxaparin Sodium (Lovenox Inj) 40 mg Q24H SQ 10/02/17 08:00 11/01/17 07:59 10/02/17 09:18 40 MG Acetaminophen (Tylenol Tab) 650 mg Q4H PRN PO 10/02/17 02:30 11/01/17 02:29 10/02/17 09:22 650 MG Acetaminophen/ Hydrocodone Bitart ([place] 10/325 Tab) pain not relieved by tyle... Q4 PRN PO 10/02/17 02:30 10/16/17 02:29 10/02/17 15:14 2 TAB Lactobacillus Acidophilus (Floranex Tab) 4 tab DAILY PO 10/02/17 09:00 11/01/17 08:59 10/02/17 09:17 4 TAB Levothyroxine Sodium (Synthroid Tab) 100 mcg DAILYBB PO 10/02/17 07:00 11/01/17 06:59 10/02/17 09:18 100 MCG Ranitidine HCl (zANTac TAB) 150 mg DAILY PRN PO 10/02/17 02:30 11/01/17 02:29 Zolpidem Tartrate (Ambien Tab) 10 mg HS PRN PO 10/02/17 02:30 11/01/17 02:29 Hydromorphone HCl (Dilaudid Inj) 0.5 mg Q3H PRN IV 10/02/17 02:30 10/16/17 02:29 10/02/17 13:26 0.5 MG Ondansetron HCl (Zofran Inj) 4 mg Q6H PRN IV 10/02/17 02:30 11/01/17 02:29 Lorazepam (Ativan Inj) 0.5 mg Q4H PRN IV 10/02/17 02:30 11/01/17 02:29 Heparin Sodium (Porcine) (Heparin 10 Unit/ ml 5 ml Flush) 5 ml PRN PRN FLUSH 10/02/17 07:00 11/01/17 06:59 Lorazepam 0.5 mg/ Syringe 1 ml @ 1 mls/min Q4H PRN IV 10/02/17 07:00 11/01/17 06:59 Imipenem/ Cilastatin Sodium 500 mg/Dextrose 110 ml @ 100 mls/hr Q6H IV 10/02/17 13:30 10/12/17 13:29 10/02/17 13:49 100 MLS/HR Dicyclomine HCl (Bentyl Tab) 10 mg BID PRN PO 10/02/17 11:15 11/01/17 11:14 Daptomycin 500 mg/ Syringe 10 ml @ 5 mls/min Q24H IV 10/02/17 14:30 10/12/17 14:29 10/02/17 14:43 5 MLS/MIN Docusate Sodium (coLACE CAP) 100 mg BID PRN PO 10/03/17 08:00 11/02/17 07:59 Review of Systems Constitutional: No fever, No chills Respiratory: No cough, No shortness of breath Cardiovascular: No chest pain Abdomen: + pain, + nausea, No vomiting, No diarrhea, No constipation, No GI bleeding Genitourinary - Female: No dysuria Endocrine: No fatigue Integumentary: No rash Physical Exam Date Time Temp Pulse Resp B/P (MAP) Pulse Ox O2 Delivery O2 Flow Rate FiO2 10/02/17 16:00 Room Air 10/02/17 15:37 36.8 97 16 132/81 (98) 97 Room Air 10/02/17 11:18 36.9 68 18 130/86 (101) 97 Room Air 10/02/17 08:30 37.1 73 18 113/71 (85) 96 10/02/17 08:00 Room Air 10/02/17 04:48 36.9 73 18 134/87 94 Room Air 10/02/17 02:09 87 18 106/54 98 10/02/17 01:43 90 18 106/54 98 Room Air 10/01/17 23:07 36.9 95 18 114/79 98 Room Air General Appearance: no apparent distress, + obese Head: normocephalic, atraumatic Eyes: sclerae normal ENT: hearing grossly normal Neck: trachea midline Respiratory/Chest: lungs clear, normal breath sounds, no respiratory distress, no accessory muscle use Cardiovascular: regular rate, rhythm, no murmur Abdomen/GI: soft, no organomegaly, no pulsatile mass, + tenderness (LLQ on mild palpation with voluntary guarding, no peritonitis) Neurologic/Psych: alert, normal mood/affect, oriented x 3 Skin: normal color, warm/dry, no rash Laboratory Results Last 24 Hours Test 10/01/17 23:40 10/02/17 01:35 10/02/17 04:16 10/02/17 07:10 White Blood Count 10.80 K/uL 9.05 K/uL Red Blood Count 4.63 M/uL 4.41 M/uL Hemoglobin 14.3 g/dL 13.6 g/dL Hematocrit 41.7 % 39.8 % Mean Corpuscular Volume 90.1 fL 90.2 fL Mean Corpuscular Hemoglobin 30.9 pg 30.8 pg Mean Corpuscular Hemoglobin Concent 34.3 g/dl 34.2 g/dl Platelet Count 325 K/uL 288 K/uL Mean Platelet Volume 9.0 fL 8.8 fL Neutrophils (%) (Auto) 63.6 % 62.1 % Lymphocytes (%) (Auto) 23.8 % 25.2 % Monocytes (%) (Auto) 9.6 % 9.7 % Eosinophils (%) (Auto) 2.4 % 2.5 % Basophils (%) (Auto) 0.4 % 0.3 % Neutrophils # (Auto) 6.87 K/uL 5.61 K/uL Lymphocytes # (Auto) 2.57 K/uL 2.28 K/uL Monocytes # (Auto) 1.04 K/uL 0.88 K/uL Eosinophils # (Auto) 0.26 K/uL 0.23 K/uL Basophils # (Auto) 0.04 K/uL 0.03 K/uL RDW Standard Deviation 39.9 fL 40.5 fL RDW Coefficient of Variation 12.2 % 12.3 % Immature Granulocyte % (Auto) 0.2 % 0.2 % Immature Granulocyte # (Auto) 0.02 K/uL 0.02 K/uL Sodium Level 134 mmol/L 136 mmol/L Potassium Level 5.2 mmol/L 4.6 mmol/L Chloride Level 103 mmol/L 103 mmol/L Carbon Dioxide Level 26 mmol/L 28 mmol/L Anion Gap 5.0 mmol/L 5.0 mmol/L Blood Urea Nitrogen 14 mg/dl 11 mg/dl Creatinine 0.72 mg/dl 0.61 mg/dl Est Creatinine Clear Calc Drug Dose 78.3 ml/min 92.5 ml/min Estimated GFR () 102.6 111.0 Estimated GFR (Non- 88.5 95.8 BUN/Creatinine Ratio 19.0 18.1 Random Glucose 97 mg/dl 92 mg/dl Calcium Level 9.0 mg/dl 8.8 mg/dl Total Bilirubin 0.5 mg/dl Direct Bilirubin 0.1 mg/dl Aspartate Amino Transf (AST/SGOT) 19 U/L Alanine Aminotransferase (ALT/SGPT) 36 U/L Alkaline Phosphatase 96 U/L Total Protein 6.6 gm/dl Albumin 3.3 gm/dl Lipase 209 U/L Urine Color YELLOW Urine Appearance CLEAR Urine pH 5.5 Urine Specific [place] 1.044 Urine Protein NEG Urine Glucose (UA) NEG Urine Ketones NEG Urine Occult Blood NEG Urine Nitrite NEG Urine Bilirubin NEG Urine Urobilinogen NEG Urine Leukocyte Esterase NEG Prothrombin Time 11.5 SECONDS Prothromb Time International Ratio 1.1 Test 10/02/17 11:12 Troponin I < 0.015 ng/ml Assessment & Plan 62 year-old female with recurrent diverticulitis, this admission being her second admission requiring IV antibiotics in 3 weeks. This is her 10-11 recurrent episode of diverticulitis in the past 8-10 years. Most episodes being treated with oral antibiotics. CT scan showing sigmoid diverticulitis without evidence of abscess or perforation. Her pain is the worst is has been but improved since yesterday. No leukocytosis, afebrile, and vitals stable. Abdominal examination is soft, tender in the LLQ with guarding, no rigidity or peritonitis. Antibiotics have been switched to Daptomycin and Primaxin IV ( discharged home with IV Ertapenem from last admission) Plan: Would continue conservative management at this time with IV antibiotics, IV fluids, and pain management. Would like to get her through this acute phase so she can discuss elective colectomy as an outpatient to where the risk of ostomy formation is significantly lower. Would continue just full liquids for now, do not want to advance diet too fast Will continue to follow clinical course and serial abdominal examinations repeat am labs continue current medical management will follow Dr. Hancock has seen and examined patient, agrees with above.
[2017-10-02] MEDS: ZOLPIDEM TARTRATE 10 MG TAB PO PRN (22:15)
[2017-10-03] VITALS: BP 117/74; PULSE 89; TEMP 36.8; O2SAT 96
[2017-10-03] MEDS: IMIPENEM/CILASTATIN IV 500 MG in DEXTROSE 5% 100ML 100 ML IV SCH ×4 (01:43→19:36)
[2017-10-03] MEDS: LEVOTHYROXINE 100 MCG TAB PO SCH (04:51)
[2017-10-03] MEDS: ACETAMINOPHEN 325 MG TAB PO PRN (04:52)
[2017-10-03 07:57] LABS: BASO % 0.3 %; BASO ABS # 0.02 K/uL (0-0.2); COMPLETE YES; EOS % 2.8 %; HEMATOCRIT 38.6 % (37-47); IG% 0.1 %; LYMPH % 32.3 %; LYMPH ABS # 2.18 K/uL (1.2-3.4); MEAN CELL VOLUME 89.4 fL (80-100); MEAN CORPUSCULAR HEMOGLOBIN 31.3 pg (25-34); MONO % 9.8 %; NEUT % 54.7 %; PLATELET COUNT 286 K/uL (130-400); RED BLOOD COUNT 4.32 M/uL (4.2-5.4); WHITE BLOOD COUNT 6.74 K/uL (4.8-10.8)
[2017-10-03] MEDS ORDERED: DOCUSATE SODIUM 100 MG CAP PO PRN (08:00)
[2017-10-03] MEDS: ENOXAPARIN 40 MG/0.4 ML SYR SQ SCH (08:08)
[2017-10-03] MEDS: LACTOBACILLUS ACIDOPHILUS (FLORANEX) TAB PO SCH (08:14)
[2017-10-03 08:26] LABS: BUN/CREATININE RATIO 12.9 (10-20); CALCIUM 8.8 mg/dl (8.5-10.1); CREATININE 0.56 mg/dl (0.60-1.20); POTASSIUM 4.1 mmol/L (3.5-5.1)
[2017-10-03] MEDS ORDERED: DAPTOmycin IV 500 MG in SODIUM CHLORIDE 0.9% 50ML 50 ML IV SCH (09:00)
[2017-10-03] MEDS ORDERED: ERTAPENEM CONSULT ACTIVE PRN (09:00)
[2017-10-03] MEDS: HYDROmorphone INJ 0.5 MG/0.5 ML SYR IV PRN ×2 (09:37→13:52)
--- NOTE | 2017-10-03 10:53 | Surgery Progress Note ---
Surgery Progress Note Date of Service Oct 03, 2017. Subjective Post OP Day: HD # 1 " a lot of discomfort in lower abdomen, a lot of gas and bloating" passing flatus, no bowel movement nausea with some of dinner last evening, could not do cream of wheat this morning No vomiting LLQ abdominal pain slightly improved, "only took pain medication twice yesterday " Had horrible reflux of acid last night Objective Vital Signs: Date Time Temp Pulse Resp B/P (MAP) Pulse Ox O2 Delivery O2 Flow Rate FiO2 10/03/17 00:30 Room Air 10/03/17 00:00 36.8 89 20 117/74 (88) 96 Room Air 10/02/17 16:00 Room Air 10/02/17 15:37 36.8 97 16 132/81 (98) 97 Room Air 10/02/17 11:18 36.9 68 18 130/86 (101) 97 Room Air General Appearance: no apparent distress, + obese Head: normocephalic, atraumatic Neck: trachea midline Respiratory/Chest: lungs clear, normal breath sounds, no respiratory distress, no accessory muscle use Cardiovascular: regular rate, rhythm, no murmur Abdomen: non distended, soft, + tenderness (LLQ on deep palpation, improved, no involuntary guarding today, no peritonitis or rigidity) Laboratory Results: Results Past 24 Hours Test 10/02/17 11:12 10/03/17 07:29 Range/Units Troponin I < 0.015 0-0.045 ng/ml White Blood Count 6.74 4.8-10.8 K/uL Red Blood Count 4.32 4.2-5.4 M/uL Hemoglobin 13.5 12.0-16.0 g/dL Hematocrit 38.6 37-47 % Mean Corpuscular Volume 89.4 80-100 fL Mean Corpuscular Hemoglobin 31.3 25-34 pg Mean Corpuscular Hemoglobin Concent 35.0 32-36 g/dl Platelet Count 286 130-400 K/uL Mean Platelet Volume 9.0 7.4-10.4 fL Neutrophils (%) (Auto) 54.7 % Lymphocytes (%) (Auto) 32.3 % Monocytes (%) (Auto) 9.8 % Eosinophils (%) (Auto) 2.8 % Basophils (%) (Auto) 0.3 % Neutrophils # (Auto) 3.68 1.4-6.5 K/uL Lymphocytes # (Auto) 2.18 1.2-3.4 K/uL Monocytes # (Auto) 0.66 0.11-0.59 K/uL Eosinophils # (Auto) 0.19 0-0.5 K/uL Basophils # (Auto) 0.02 0-0.2 K/uL RDW Standard Deviation 39.3 36.4-46.3 fL RDW Coefficient of Variation 12.1 11.5-14.5 % Immature Granulocyte % (Auto) 0.1 % Immature Granulocyte # (Auto) 0.01 0.00-0.02 K/uL Sodium Level 138 136-145 mmol/L Potassium Level 4.1 3.5-5.1 mmol/L Chloride Level 104 98-107 mmol/L Carbon Dioxide Level 27 21-32 mmol/L Anion Gap 7.0 3-11 mmol/L Blood Urea Nitrogen 7 7-18 mg/dl Creatinine 0.56 0.60-1.20 mg/dl Est Creatinine Clear Calc Drug Dose 102.8 ml/min Estimated GFR () 114.2 Estimated GFR (Non- 98.5 BUN/Creatinine Ratio 12.9 10-20 Random Glucose 88 70-99 mg/dl Calcium Level 8.8 8.5-10.1 mg/dl Assessment & Plan 62 year-old female with recurrent diverticulitis, this admission being her second admission requiring IV antibiotics in 3 weeks. This is her 10-11 recurrent episode of diverticulitis in the past 8-10 years. Most episodes being treated with oral antibiotics. CT scan showing sigmoid diverticulitis without evidence of abscess or perforation. No leukocytosis, afebrile, and vitals stable. Abdominal examination is soft, tender in the LLQ without guarding today and improved compared to yesterday. No rigidity or peritonitis. Antibiotics have been switched to Daptomycin and Primaxin IV (discharged home with IV Ertapenem from last admission) Plan: Would continue conservative management at this time: IV fluids, IV antibiotics, and pain control Continue full liquids at this time, if nauseated at lunch may revert back to NPO repeat am labs continue current medical management advised ambulation to assist in increasing bowel function will start Ranitidine daily instead of PRN Dr. Beyer has seen and examined patient, agrees with above
[2017-10-03] MEDS: DICYCLOMINE HCL 20 MG TAB PO PRN (10:58)
[2017-10-03] MEDS: HYDROCODONE/ACETAMI 10/325 TAB PO PRN ×2 (11:01→19:38)
--- NOTE | 2017-10-03 11:02 | Gastroenterology Progress Note ---
Progress Note Date of Service: Oct 03, 2017 Subjective Pt evaluation today including: conversation w/ patient, physical exam, chart review, lab review, review of inpatient medication list Pt reports feeling "worn out", though admits pain in abd is a bit better. Is tolerating FL diet. No BM yet, feels a bit bloated. Review of Systems Constitutional: No fever, No chills Respiratory: No cough Cardiac: No chest pain, No edema Abdomen: + pain, No nausea, No vomiting Medications Current Inpatient Medications Medications (Trade) Dose Ordered Sig/Kt Route Start Time Stop Time Status Last Admin Dose Admin Ioversol (Optiray 320) 100 ml UD PRN IV 10/01/17 23:30 10/05/17 23:29 Enoxaparin Sodium (Lovenox Inj) 40 mg Q24H SQ 10/02/17 08:00 11/01/17 07:59 10/03/17 08:08 40 MG Acetaminophen (Tylenol Tab) 650 mg Q4H PRN PO 10/02/17 02:30 11/01/17 02:29 10/03/17 04:52 650 MG Acetaminophen/ Hydrocodone Bitart ([place] 10/325 Tab) pain not relieved by tyle... Q4 PRN PO 10/02/17 02:30 10/16/17 02:29 10/02/17 20:50 2 TAB Lactobacillus Acidophilus (Floranex Tab) 4 tab DAILY PO 10/02/17 09:00 11/01/17 08:59 10/03/17 08:14 4 TAB Levothyroxine Sodium (Synthroid Tab) 100 mcg DAILYBB PO 10/02/17 07:00 11/01/17 06:59 10/03/17 04:51 100 MCG Zolpidem Tartrate (Ambien Tab) 10 mg HS PRN PO 10/02/17 02:30 11/01/17 02:29 10/02/17 22:15 10 MG Hydromorphone HCl (Dilaudid Inj) 0.5 mg Q3H PRN IV 10/02/17 02:30 10/16/17 02:29 10/03/17 09:37 0.5 MG Ondansetron HCl (Zofran Inj) 4 mg Q6H PRN IV 10/02/17 02:30 11/01/17 02:29 Lorazepam (Ativan Inj) 0.5 mg Q4H PRN IV 10/02/17 02:30 11/01/17 02:29 Heparin Sodium (Porcine) (Heparin 10 Unit/ ml 5 ml Flush) 5 ml PRN PRN FLUSH 10/02/17 07:00 11/01/17 06:59 10/03/17 02:56 5 ML Lorazepam 0.5 mg/ Syringe 1 ml @ 1 mls/min Q4H PRN IV 10/02/17 07:00 11/01/17 06:59 Imipenem/ Cilastatin Sodium 500 mg/Dextrose 110 ml @ 100 mls/hr Q6H IV 10/02/17 13:30 10/12/17 13:29 10/03/17 08:10 100 MLS/HR Dicyclomine HCl (Bentyl Tab) 10 mg BID PRN PO 10/02/17 11:15 11/01/17 11:14 Daptomycin 500 mg/ Syringe 10 ml @ 5 mls/min Q24H IV 10/02/17 14:30 10/12/17 14:29 10/02/17 14:43 5 MLS/MIN Docusate Sodium (coLACE CAP) 100 mg BID PRN PO 10/03/17 08:00 11/02/17 07:59 Ranitidine HCl (zANTac TAB) 150 mg DAILY PO 10/03/17 09:30 11/01/17 02:29 UNV Objective Vital Signs Date Time Temp Pulse Resp B/P (MAP) Pulse Ox O2 Delivery O2 Flow Rate FiO2 10/03/17 00:30 Room Air 10/03/17 00:00 36.8 89 20 117/74 (88) 96 Room Air 10/02/17 16:00 Room Air 10/02/17 15:37 36.8 97 16 132/81 (98) 97 Room Air 10/02/17 11:18 36.9 68 18 130/86 (101) 97 Room Air Physical Exam General Appearance: WD/WN, no apparent distress, + obese Eyes: normal inspection, PERRL, EOMI Neck: supple, no JVD, trachea midline Respiratory/Chest: normal breath sounds, no respiratory distress, no accessory muscle use Cardiovascular: regular rate, rhythm, no gallop, no murmur Abdomen: normal bowel sounds, soft, + tenderness (LLQ) Extremities: normal inspection, no pedal edema, no calf tenderness Neurologic/Psych: alert, normal mood/affect, oriented x 3 Skin: normal color, no jaundice, no rash Laboratory Results Last 24 Hours Test 10/02/17 11:12 10/03/17 07:29 Troponin I < 0.015 ng/ml White Blood Count 6.74 K/uL Red Blood Count 4.32 M/uL Hemoglobin 13.5 g/dL Hematocrit 38.6 % Mean Corpuscular Volume 89.4 fL Mean Corpuscular Hemoglobin 31.3 pg Mean Corpuscular Hemoglobin Concent 35.0 g/dl Platelet Count 286 K/uL Mean Platelet Volume 9.0 fL Neutrophils (%) (Auto) 54.7 % Lymphocytes (%) (Auto) 32.3 % Monocytes (%) (Auto) 9.8 % Eosinophils (%) (Auto) 2.8 % Basophils (%) (Auto) 0.3 % Neutrophils # (Auto) 3.68 K/uL Lymphocytes # (Auto) 2.18 K/uL Monocytes # (Auto) 0.66 K/uL Eosinophils # (Auto) 0.19 K/uL Basophils # (Auto) 0.02 K/uL RDW Standard Deviation 39.3 fL RDW Coefficient of Variation 12.1 % Immature Granulocyte % (Auto) 0.1 % Immature Granulocyte # (Auto) 0.01 K/uL Sodium Level 138 mmol/L Potassium Level 4.1 mmol/L Chloride Level 104 mmol/L Carbon Dioxide Level 27 mmol/L Anion Gap 7.0 mmol/L Blood Urea Nitrogen 7 mg/dl Creatinine 0.56 mg/dl Est Creatinine Clear Calc Drug Dose 102.8 ml/min Estimated GFR () 114.2 Estimated GFR (Non- 98.5 BUN/Creatinine Ratio 12.9 Random Glucose 88 mg/dl Calcium Level 8.8 mg/dl Assessment and Plan Patient is a 62 year old female recently admitted for diverticulitis, returned w LLQ abd pain. Repeat CT showed similar appearance sigmoid diverticulitis w/o abscess or perforation. Dr. Solano (I.Moni.) had seen pt during this admission again. Plans - Antibx management per ID (Primaxin, Daptomycin) - Dicyclomine 10mg BID prn abd pain - Colace 100mg BID prn constipation - FL diet, advance slowly to low residue - Consult General Surgery for recurrent diverticulitis and consideration for sigmoid resection. - Given hx of Afib, chest tightness will order EKG, Troponin -> normal. Attnd Addm: I have seen, examined, and agree with the plan as outlined above by GHANSHYAM Rogers. - mildly improved, but still having some pain - surgery is seen in agree with the conservative approach given the fact that she has uncomplicated diverticulitis, not sure of the repeat utility colonoscopy prior to anticipated resection Bro Lopez M.D.
[2017-10-03] MEDS: DAPTOmycin IV 500 MG in SYRINGE 0 ML IV SCH (13:50)
[2017-10-03] MEDS: RANITIDINE HCL 150 MG TAB PO SCH (14:02)
[2017-10-03 15:34] VITALS: BP 126/80; PULSE 76; TEMP 36.9; O2SAT 96
--- NOTE | 2017-10-03 16:05 | Progress Note ---
Internal Med Progress Note Date of Service: Oct 03, 2017. Provider Documentation: SUBJECTIVE: Seen and examined at bedside Abd pain better Had loose BM today Nausea but no vomiting Tolerating diet Denies chest pain, SOB, diarrhea Offers no other complaints OBJECTIVE: Vital Signs-as noted below Physical Exam: General Appearance:Moderately built and nourished, no apparent distress Head: normocephalic, Atraumatic Eyes: normal inspection, EOMI, PERRL Neck: supple, Trachea midline Respiratory/Chest: Normal breath sounds, CTA Cardiovascular: S1, S2, No murmur Abdomen/GI:Soft, mild tender, Bowel sounds present Extremities/Musculoskelatal:normal inspection, no edema Neurologic/Psych:AAOX3, grossly no focal neurological deficits Skin: normal color, warm Lab data as noted below. ASSESSMENT & PLAN: Uncomplicated/Recurrent diverticulitis: No improvement with ongoing ertapenem course No signs of sepsis Last Colonoscopy in Aug 2016 Continue IV Daptomycin and Primaxin per ID Blood cultures: No growth Stool: No C.diff Appreciate GI/Surgery Input Advance to low fiber diet as tolerated Continue Colace, dicyclomine, ranitidine Hypertension: stable Monitor Hyperkalemia: Resolved On IV fluids Monitor Hold ACEI for now H/O PE/DVT S/P anticoagulation H/O P.Afib S/P Ablation Stable Hypothyroidism: Continue levothyroxine DVT px: Lovenox SQ. Code Status: Full code Vital Signs: Date Time Temp Pulse Resp B/P (MAP) Pulse Ox O2 Delivery O2 Flow Rate FiO2 10/03/17 15:34 36.9 76 18 126/80 (95) 96 Room Air 10/03/17 08:00 Room Air 10/03/17 00:30 Room Air 10/03/17 00:00 36.8 89 20 117/74 (88) 96 Room Air Lab Results: Results Past 24 Hours Test 10/03/17 07:29 Range/Units White Blood Count 6.74 4.8-10.8 K/uL Red Blood Count 4.32 4.2-5.4 M/uL Hemoglobin 13.5 12.0-16.0 g/dL Hematocrit 38.6 37-47 % Mean Corpuscular Volume 89.4 80-100 fL Mean Corpuscular Hemoglobin 31.3 25-34 pg Mean Corpuscular Hemoglobin Concent 35.0 32-36 g/dl Platelet Count 286 130-400 K/uL Mean Platelet Volume 9.0 7.4-10.4 fL Neutrophils (%) (Auto) 54.7 % Lymphocytes (%) (Auto) 32.3 % Monocytes (%) (Auto) 9.8 % Eosinophils (%) (Auto) 2.8 % Basophils (%) (Auto) 0.3 % Neutrophils # (Auto) 3.68 1.4-6.5 K/uL Lymphocytes # (Auto) 2.18 1.2-3.4 K/uL Monocytes # (Auto) 0.66 0.11-0.59 K/uL Eosinophils # (Auto) 0.19 0-0.5 K/uL Basophils # (Auto) 0.02 0-0.2 K/uL RDW Standard Deviation 39.3 36.4-46.3 fL RDW Coefficient of Variation 12.1 11.5-14.5 % Immature Granulocyte % (Auto) 0.1 % Immature Granulocyte # (Auto) 0.01 0.00-0.02 K/uL Sodium Level 138 136-145 mmol/L Potassium Level 4.1 3.5-5.1 mmol/L Chloride Level 104 98-107 mmol/L Carbon Dioxide Level 27 21-32 mmol/L Anion Gap 7.0 3-11 mmol/L Blood Urea Nitrogen 7 7-18 mg/dl Creatinine 0.56 0.60-1.20 mg/dl Est Creatinine Clear Calc Drug Dose 102.8 ml/min Estimated GFR () 114.2 Estimated GFR (Non- 98.5 BUN/Creatinine Ratio 12.9 10-20 Random Glucose 88 70-99 mg/dl Calcium Level 8.8 8.5-10.1 mg/dl Microbiology Results 10/03/17 C.difficile Toxin B Gene (PCR) - Final, Complete No C. difficile toxin B gene detected
--- NOTE | 2017-10-03 16:26 | Infectious Disease Progress Nt ---
Progress Note Date of Service Oct 03, 2017. Subjective Pt evaluation today including: conversation w/ patient, physical exam, chart review, lab review, review of studies, conversation w/ sap pp consultant, review of inpatient medication list Abdominal pain better today. Still with loose stool. No fever. Tolerating antibiotics without apparent difficulty. All Other Systems: Reviewed and Negative Medications Current Inpatient Medications Medications (Trade) Dose Ordered Sig/Kt Route Start Time Stop Time Status Last Admin Dose Admin Ioversol (Optiray 320) 100 ml UD PRN IV 10/01/17 23:30 10/05/17 23:29 Enoxaparin Sodium (Lovenox Inj) 40 mg Q24H SQ 10/02/17 08:00 11/01/17 07:59 10/03/17 08:08 40 MG Acetaminophen (Tylenol Tab) 650 mg Q4H PRN PO 10/02/17 02:30 11/01/17 02:29 10/03/17 04:52 650 MG Acetaminophen/ Hydrocodone Bitart ([place] 10/325 Tab) pain not relieved by tyle... Q4 PRN PO 10/02/17 02:30 10/16/17 02:29 10/03/17 11:01 1 TAB Lactobacillus Acidophilus (Floranex Tab) 4 tab DAILY PO 10/02/17 09:00 11/01/17 08:59 10/03/17 08:14 4 TAB Levothyroxine Sodium (Synthroid Tab) 100 mcg DAILYBB PO 10/02/17 07:00 11/01/17 06:59 10/03/17 04:51 100 MCG Zolpidem Tartrate (Ambien Tab) 10 mg HS PRN PO 10/02/17 02:30 11/01/17 02:29 10/02/17 22:15 10 MG Hydromorphone HCl (Dilaudid Inj) 0.5 mg Q3H PRN IV 10/02/17 02:30 10/16/17 02:29 10/03/17 13:52 0.5 MG Ondansetron HCl (Zofran Inj) 4 mg Q6H PRN IV 10/02/17 02:30 11/01/17 02:29 Lorazepam (Ativan Inj) 0.5 mg Q4H PRN IV 10/02/17 02:30 11/01/17 02:29 Heparin Sodium (Porcine) (Heparin 10 Unit/ ml 5 ml Flush) 5 ml PRN PRN FLUSH 10/02/17 07:00 11/01/17 06:59 10/03/17 02:56 5 ML Lorazepam 0.5 mg/ Syringe 1 ml @ 1 mls/min Q4H PRN IV 10/02/17 07:00 11/01/17 06:59 Imipenem/ Cilastatin Sodium 500 mg/Dextrose 110 ml @ 100 mls/hr Q6H IV 10/02/17 13:30 10/12/17 13:29 10/03/17 13:50 100 MLS/HR Dicyclomine HCl (Bentyl Tab) 10 mg BID PRN PO 10/02/17 11:15 11/01/17 11:14 10/03/17 10:58 10 MG Daptomycin 500 mg/ Syringe 10 ml @ 5 mls/min Q24H IV 10/02/17 14:30 10/12/17 14:29 10/03/17 13:50 5 MLS/MIN Docusate Sodium (coLACE CAP) 100 mg BID PRN PO 10/03/17 08:00 11/02/17 07:59 Ranitidine HCl (zANTac TAB) 150 mg DAILY PO 10/03/17 12:00 11/01/17 11:59 10/03/17 14:02 150 MG Polyethylene (Miralax Powder Packet) 17 gm DAILY PO 10/04/17 09:00 11/03/17 08:59 Objective Vital Signs Date Time Temp Pulse Resp B/P (MAP) Pulse Ox O2 Delivery O2 Flow Rate FiO2 10/03/17 15:34 36.9 76 18 126/80 (95) 96 Room Air 10/03/17 08:00 Room Air 10/03/17 00:30 Room Air 10/03/17 00:00 36.8 89 20 117/74 (88) 96 Room Air Physical Exam General Appearance: WD/WN, no apparent distress Eyes: normal inspection, sclerae normal ENT: normal ENT inspection, pharynx normal Neck: supple, no adenopathy, trachea midline Respiratory/Chest: chest non-tender, lungs clear, normal breath sounds, no respiratory distress Cardiovascular: regular rate, rhythm, no gallop, no murmur Abdomen: normal bowel sounds, soft, no organomegaly, + tenderness Extremities: non-tender, no calf tenderness Neurologic/Psychiatric: alert, oriented x 3 Skin: normal color, no rash Lymphatic: no adenopathy Laboratory Results RUN DATE: 10/03/17 [facility] LAB PAGE 1 RUN TIME: 1541 Specimen Inquiry PATIENT: SHONA HOLLAND LOC: [id number] U # : [id number] AGE/SX: 62/F ROOM: [facility] REG : 10/02/[address]: Daniele Jernigan MD : [id number] BED: 1 DIS : STATUS: ADM IN TLOC: SPEC #: [id number] TANGELA: 10/03/17 STATUS: COMP REQ #: [id number] RECD: 10/03/17 [facility] DR: Kash Schwab M.D. SOURCE: STOOL ENTR: 10/03/[address] [facility] [address]: Adilson Solano MD [facility]: Jann Roth, Abe Nino M.D. Piatt, John E., III, M.D. Vangala, Satish K., MD ORDERED: CDIFF TOXIN B COMMENTS: Has Specimen Been Obtained/Collected? Y Procedure Result Verified Site CDIFF TOXIN B GENE*(2 YR OR >) Final 10/03/17-1541 No C. difficile toxin B gene detected Last 24 Hours Test 10/03/17 07:29 White Blood Count 6.74 K/uL Red Blood Count 4.32 M/uL Hemoglobin 13.5 g/dL Hematocrit 38.6 % Mean Corpuscular Volume 89.4 fL Mean Corpuscular Hemoglobin 31.3 pg Mean Corpuscular Hemoglobin Concent 35.0 g/dl Platelet Count 286 K/uL Mean Platelet Volume 9.0 fL Neutrophils (%) (Auto) 54.7 % Lymphocytes (%) (Auto) 32.3 % Monocytes (%) (Auto) 9.8 % Eosinophils (%) (Auto) 2.8 % Basophils (%) (Auto) 0.3 % Neutrophils # (Auto) 3.68 K/uL Lymphocytes # (Auto) 2.18 K/uL Monocytes # (Auto) 0.66 K/uL Eosinophils # (Auto) 0.19 K/uL Basophils # (Auto) 0.02 K/uL RDW Standard Deviation 39.3 fL RDW Coefficient of Variation 12.1 % Immature Granulocyte % (Auto) 0.1 % Immature Granulocyte # (Auto) 0.01 K/uL Sodium Level 138 mmol/L Potassium Level 4.1 mmol/L Chloride Level 104 mmol/L Carbon Dioxide Level 27 mmol/L Anion Gap 7.0 mmol/L Blood Urea Nitrogen 7 mg/dl Creatinine 0.56 mg/dl Est Creatinine Clear Calc Drug Dose 102.8 ml/min Estimated GFR () 114.2 Estimated GFR (Non- 98.5 BUN/Creatinine Ratio 12.9 Random Glucose 88 mg/dl Calcium Level 8.8 mg/dl Assessment and Plan Patient with persistent sigmoid diverticulitis despite ongoing therapy with ertapenem. Not clear why pain recurred with such a vengeance. Given possibility of resistant pathogen, patient changed to daptomycin and imipenem, appears to be making early response. We will continue present therapy, length to be determined by clinical response.
[2017-10-03] MEDS: ZOLPIDEM TARTRATE 10 MG TAB PO PRN (21:13)
[2017-10-04 00:10] VITALS: BP 120/66; PULSE 87; TEMP 36.6; O2SAT 96
[2017-10-04] MEDS: IMIPENEM/CILASTATIN IV 500 MG in DEXTROSE 5% 100ML 100 ML IV SCH ×4 (01:32→19:01)
[2017-10-04] MEDS: LEVOTHYROXINE 100 MCG TAB PO SCH (06:13)
[2017-10-04] MEDS: DICYCLOMINE HCL 20 MG TAB PO PRN (06:19)
[2017-10-04 08:16] VITALS: BP 133/74; PULSE 76; TEMP 37; O2SAT 95
[2017-10-04] MEDS: RANITIDINE HCL 150 MG TAB PO SCH (08:37)
[2017-10-04] MEDS: LACTOBACILLUS ACIDOPHILUS (FLORANEX) TAB PO SCH (08:38)
[2017-10-04] MEDS: ENOXAPARIN 40 MG/0.4 ML SYR SQ SCH (08:38)
--- NOTE | 2017-10-04 08:42 | Surgery Progress Note ---
Surgery Progress Note Date of Service Oct 04, 2017. Subjective Post OP Day: HD # 2 pain is now more localized and centralized in the left lower abdomen and going into the groin and back this morning loose bowel movements yesterday, no blood low appetite, no desire to eat much of the full liquids no vomiting Objective Vital Signs: Date Time Temp Pulse Resp B/P (MAP) Pulse Ox O2 Delivery O2 Flow Rate FiO2 10/04/17 08:16 37.0 76 16 133/74 (93) 95 Room Air 10/04/17 00:21 Room Air 10/04/17 00:10 36.6 87 20 120/66 (84) 96 Room Air 10/03/17 19:56 Room Air 10/03/17 15:34 36.9 76 18 126/80 (95) 96 Room Air General Appearance: WD/WN, + obese Head: normocephalic, atraumatic Neck: trachea midline Respiratory/Chest: lungs clear, normal breath sounds, no respiratory distress, no accessory muscle use Cardiovascular: regular rate, rhythm, no murmur Abdomen: non distended, soft, no organomegaly, no pulsatile mass, + abnormal bowel sounds (hypoactive bowel sounds this am but present), + guarding (LLQ), + tenderness (LLQ) Laboratory Results: Results Past 24 Hours Test 10/04/17 04:44 10/04/17 08:30 Range/Units Microbiology Results 10/03/17 C.difficile Toxin B Gene (PCR) - Final, Complete No C. difficile toxin B gene detected Assessment & Plan 62 year-old female with recurrent diverticulitis, this admission being her second admission requiring IV antibiotics in 3 weeks. This is her 10-11 recurrent episode of diverticulitis in the past 8-10 years. Most episodes being treated with oral antibiotics. CT scan 10/02/17 showing sigmoid diverticulitis without evidence of abscess or perforation. No leukocytosis, afebrile, and vitals stable. Abdominal examination is soft, tender in the LLQ without guarding today. No rigidity or peritonitis. Antibiotics have been switched to Daptomycin and Primaxin IV (discharged home with IV Ertapenem from last admission) Plan: Would continue conservative management at this time: IV fluids, IV antibiotics, and pain control If pain increases or develops a white count or becomes febrile may consider repeating CT scan Continue full liquids at this time await cbc results this am repeat am labs tomorrow continue current medical management Dr. Beyer has seen and examined patient, agrees with above
[2017-10-04] MEDS: HYDROCODONE/ACETAMI 10/325 TAB PO PRN ×2 (08:47→15:56)
[2017-10-04] MEDS: POLYETHYLENE (MIRALAX) 17 GM PACK PO SCH ×2 (09:00→09:08)
[2017-10-04 09:46] LABS: HEMATOCRIT 40.2 % (37-47); MEAN CELL VOLUME 89.1 fL (80-100); MEAN CORPUSCULAR HEMOGLOBIN 31.3 pg (25-34); MEAN CORPUSCULAR HGB CONC 35.1 g/dl (32-36); PLATELET COUNT 330 K/uL (130-400); RED BLOOD COUNT 4.51 M/uL (4.2-5.4); WHITE BLOOD COUNT 6.04 K/uL (4.8-10.8)
[2017-10-04 10:24] LABS: BUN/CREATININE RATIO 11.7 (10-20); CALCIUM 9.3 mg/dl (8.5-10.1); CREATININE 0.59 mg/dl (0.60-1.20); POTASSIUM 4.1 mmol/L (3.5-5.1)
--- NOTE | 2017-10-04 10:47 | Infectious Disease Progress Nt ---
Progress Note Date of Service Oct 04, 2017. Subjective Pt evaluation today including: conversation w/ patient, physical exam, chart review, lab review, review of studies, conversation w/ nursing education consultant, review of inpatient medication list Patient had episode of severe abdominal cramping and diarrhea earlier this morning. Somewhat better now. Still with significant left lower quadrant pain radiating into her groin. No fever. Tolerating antibiotics without apparent difficulty. All Other Systems: Reviewed and Negative Medications Current Inpatient Medications Medications (Trade) Dose Ordered Sig/Kt Route Start Time Stop Time Status Last Admin Dose Admin Ioversol (Optiray 320) 100 ml UD PRN IV 10/01/17 23:30 10/05/17 23:29 Enoxaparin Sodium (Lovenox Inj) 40 mg Q24H SQ 10/02/17 08:00 11/01/17 07:59 10/04/17 08:38 40 MG Acetaminophen (Tylenol Tab) 650 mg Q4H PRN PO 10/02/17 02:30 11/01/17 02:29 10/03/17 04:52 650 MG Acetaminophen/ Hydrocodone Bitart ([place] 10/325 Tab) pain not relieved by tyle... Q4 PRN PO 10/02/17 02:30 10/16/17 02:29 10/04/17 08:47 2 TAB Lactobacillus Acidophilus (Floranex Tab) 4 tab DAILY PO 10/02/17 09:00 11/01/17 08:59 10/04/17 08:38 4 TAB Levothyroxine Sodium (Synthroid Tab) 100 mcg DAILYBB PO 10/02/17 07:00 11/01/17 06:59 10/04/17 06:13 100 MCG Zolpidem Tartrate (Ambien Tab) 10 mg HS PRN PO 10/02/17 02:30 11/01/17 02:29 10/03/17 21:13 10 MG Hydromorphone HCl (Dilaudid Inj) 0.5 mg Q3H PRN IV 10/02/17 02:30 10/16/17 02:29 10/03/17 13:52 0.5 MG Ondansetron HCl (Zofran Inj) 4 mg Q6H PRN IV 10/02/17 02:30 11/01/17 02:29 Lorazepam (Ativan Inj) 0.5 mg Q4H PRN IV 10/02/17 02:30 11/01/17 02:29 Heparin Sodium (Porcine) (Heparin 10 Unit/ ml 5 ml Flush) 5 ml PRN PRN FLUSH 10/02/17 07:00 11/01/17 06:59 10/03/17 21:13 5 ML Lorazepam 0.5 mg/ Syringe 1 ml @ 1 mls/min Q4H PRN IV 10/02/17 07:00 11/01/17 06:59 Imipenem/ Cilastatin Sodium 500 mg/Dextrose 110 ml @ 100 mls/hr Q6H IV 10/02/17 13:30 10/12/17 13:29 10/04/17 09:03 100 MLS/HR Dicyclomine HCl (Bentyl Tab) 10 mg BID PRN PO 10/02/17 11:15 11/01/17 11:14 10/04/17 06:19 10 MG Daptomycin 500 mg/ Syringe 10 ml @ 5 mls/min Q24H IV 10/02/17 14:30 10/12/17 14:29 10/03/17 13:50 5 MLS/MIN Docusate Sodium (coLACE CAP) 100 mg BID PRN PO 10/03/17 08:00 11/02/17 07:59 Ranitidine HCl (zANTac TAB) 150 mg DAILY PO 10/03/17 12:00 11/01/17 11:59 10/04/17 08:37 150 MG Polyethylene (Miralax Powder Packet) 17 gm DAILY PO 10/04/17 09:00 11/03/17 08:59 10/04/17 09:08 17 GM Simethicone (Mylicon Chew Tab) 80 mg Q6H PRN PO 10/04/17 09:15 11/03/17 09:14 Objective Vital Signs Date Time Temp Pulse Resp B/P (MAP) Pulse Ox O2 Delivery O2 Flow Rate FiO2 10/04/17 08:16 37.0 76 16 133/74 (93) 95 Room Air 10/04/17 00:21 Room Air 10/04/17 00:10 36.6 87 20 120/66 (84) 96 Room Air 10/03/17 19:56 Room Air 10/03/17 15:34 36.9 76 18 126/80 (95) 96 Room Air Physical Exam General Appearance: WD/WN, no apparent distress Eyes: normal inspection, EOMI, sclerae normal ENT: normal ENT inspection, pharynx normal Neck: supple, no adenopathy, trachea midline Respiratory/Chest: chest non-tender, lungs clear, normal breath sounds, no respiratory distress Cardiovascular: regular rate, rhythm, no gallop, no murmur Abdomen: normal bowel sounds, soft, no organomegaly, + tenderness Extremities: non-tender, no calf tenderness Neurologic/Psychiatric: alert, oriented x 3 Skin: normal color, warm/dry, no rash Lymphatic: no adenopathy Laboratory Results Last 24 Hours Test 10/04/17 09:08 White Blood Count 6.04 K/uL Red Blood Count 4.51 M/uL Hemoglobin 14.1 g/dL Hematocrit 40.2 % Mean Corpuscular Volume 89.1 fL Mean Corpuscular Hemoglobin 31.3 pg Mean Corpuscular Hemoglobin Concent 35.1 g/dl RDW Standard Deviation 38.8 fL RDW Coefficient of Variation 12.0 % Platelet Count 330 K/uL Mean Platelet Volume 9.0 fL Sodium Level 138 mmol/L Potassium Level 4.1 mmol/L Chloride Level 103 mmol/L Carbon Dioxide Level 28 mmol/L Anion Gap 7.0 mmol/L Blood Urea Nitrogen 7 mg/dl Creatinine 0.59 mg/dl Est Creatinine Clear Calc Drug Dose 97.6 ml/min Estimated GFR () 112.3 Estimated GFR (Non- 96.9 BUN/Creatinine Ratio 11.7 Random Glucose 95 mg/dl Calcium Level 9.3 mg/dl Assessment and Plan Patient with persistent sigmoid diverticulitis despite ongoing therapy with ertapenem. Appears to be somewhat better now with combination of daptomycin and imipenem. We will continue IV antibiotics. Would consider rechecking C difficile PCR given diarrhea this morning. Will follow.
--- NOTE | 2017-10-04 11:05 | Gastroenterology Progress Note ---
Progress Note Date of Service: Oct 04, 2017 Subjective Pt evaluation today including: conversation w/ patient, physical exam, chart review, lab review, review of inpatient medication list Pt reports large loose stool yesterday, and persistent LLQ cramping. Denies any n/v. No rectal bleeding. Review of Systems Constitutional: No fever, No chills Respiratory: No cough, No shortness of breath Cardiac: No chest pain Abdomen: + pain (RLQ), No nausea, No vomiting, No GI bleeding Medications Current Inpatient Medications Medications (Trade) Dose Ordered Sig/Kt Route Start Time Stop Time Status Last Admin Dose Admin Ioversol (Optiray 320) 100 ml UD PRN IV 10/01/17 23:30 10/05/17 23:29 Enoxaparin Sodium (Lovenox Inj) 40 mg Q24H SQ 10/02/17 08:00 11/01/17 07:59 10/04/17 08:38 40 MG Acetaminophen (Tylenol Tab) 650 mg Q4H PRN PO 10/02/17 02:30 11/01/17 02:29 10/03/17 04:52 650 MG Acetaminophen/ Hydrocodone Bitart ([place] 10/325 Tab) pain not relieved by tyle... Q4 PRN PO 10/02/17 02:30 10/16/17 02:29 10/04/17 08:47 2 TAB Lactobacillus Acidophilus (Floranex Tab) 4 tab DAILY PO 10/02/17 09:00 11/01/17 08:59 10/04/17 08:38 4 TAB Levothyroxine Sodium (Synthroid Tab) 100 mcg DAILYBB PO 10/02/17 07:00 11/01/17 06:59 10/04/17 06:13 100 MCG Zolpidem Tartrate (Ambien Tab) 10 mg HS PRN PO 10/02/17 02:30 11/01/17 02:29 10/03/17 21:13 10 MG Hydromorphone HCl (Dilaudid Inj) 0.5 mg Q3H PRN IV 10/02/17 02:30 10/16/17 02:29 10/03/17 13:52 0.5 MG Ondansetron HCl (Zofran Inj) 4 mg Q6H PRN IV 10/02/17 02:30 11/01/17 02:29 Lorazepam (Ativan Inj) 0.5 mg Q4H PRN IV 10/02/17 02:30 11/01/17 02:29 Heparin Sodium (Porcine) (Heparin 10 Unit/ ml 5 ml Flush) 5 ml PRN PRN FLUSH 10/02/17 07:00 11/01/17 06:59 10/03/17 21:13 5 ML Lorazepam 0.5 mg/ Syringe 1 ml @ 1 mls/min Q4H PRN IV 10/02/17 07:00 11/01/17 06:59 Imipenem/ Cilastatin Sodium 500 mg/Dextrose 110 ml @ 100 mls/hr Q6H IV 10/02/17 13:30 10/12/17 13:29 10/04/17 09:03 100 MLS/HR Dicyclomine HCl (Bentyl Tab) 10 mg BID PRN PO 10/02/17 11:15 11/01/17 11:14 10/04/17 06:19 10 MG Daptomycin 500 mg/ Syringe 10 ml @ 5 mls/min Q24H IV 10/02/17 14:30 10/12/17 14:29 10/03/17 13:50 5 MLS/MIN Docusate Sodium (coLACE CAP) 100 mg BID PRN PO 10/03/17 08:00 11/02/17 07:59 Ranitidine HCl (zANTac TAB) 150 mg DAILY PO 10/03/17 12:00 11/01/17 11:59 10/04/17 08:37 150 MG Polyethylene (Miralax Powder Packet) 17 gm DAILY PO 10/04/17 09:00 11/03/17 08:59 10/04/17 09:08 17 GM Simethicone (Mylicon Chew Tab) 80 mg Q6H PRN PO 10/04/17 09:15 11/03/17 09:14 Objective Vital Signs Date Time Temp Pulse Resp B/P (MAP) Pulse Ox O2 Delivery O2 Flow Rate FiO2 10/04/17 08:16 37.0 76 16 133/74 (93) 95 Room Air 10/04/17 00:21 Room Air 10/04/17 00:10 36.6 87 20 120/66 (84) 96 Room Air 10/03/17 19:56 Room Air 10/03/17 15:34 36.9 76 18 126/80 (95) 96 Room Air Physical Exam General Appearance: WD/WN, no apparent distress, + obese Eyes: normal inspection, PERRL, EOMI Neck: supple, no JVD, trachea midline Respiratory/Chest: normal breath sounds, no respiratory distress, no accessory muscle use Cardiovascular: regular rate, rhythm, no gallop, no murmur Abdomen: normal bowel sounds, soft, + tenderness (LLQ) Extremities: normal inspection, no pedal edema, no calf tenderness Neurologic/Psych: alert, normal mood/affect, oriented x 3 Skin: normal color, no jaundice, no rash Laboratory Results Last 24 Hours Test 10/04/17 09:08 White Blood Count 6.04 K/uL Red Blood Count 4.51 M/uL Hemoglobin 14.1 g/dL Hematocrit 40.2 % Mean Corpuscular Volume 89.1 fL Mean Corpuscular Hemoglobin 31.3 pg Mean Corpuscular Hemoglobin Concent 35.1 g/dl RDW Standard Deviation 38.8 fL RDW Coefficient of Variation 12.0 % Platelet Count 330 K/uL Mean Platelet Volume 9.0 fL Sodium Level 138 mmol/L Potassium Level 4.1 mmol/L Chloride Level 103 mmol/L Carbon Dioxide Level 28 mmol/L Anion Gap 7.0 mmol/L Blood Urea Nitrogen 7 mg/dl Creatinine 0.59 mg/dl Est Creatinine Clear Calc Drug Dose 97.6 ml/min Estimated GFR () 112.3 Estimated GFR (Non- 96.9 BUN/Creatinine Ratio 11.7 Random Glucose 95 mg/dl Calcium Level 9.3 mg/dl Assessment and Plan Patient is a 62 year old female recently admitted for diverticulitis, returned w LLQ abd pain. Repeat CT showed similar appearance sigmoid diverticulitis w/o abscess or perforation. Dr. Solano (I.D.) had seen pt during this admission again. Plans - Antibx management per ID (Primaxin, Daptomycin) - Dicyclomine 20mg BID prn abd pain - Colace 100mg BID prn constipation - FL diet, advance slowly to low residue - Consult General Surgery for recurrent diverticulitis and consideration for sigmoid resection. Given last colonoscopy a year ago and low probability of large polyps, malignancy, and recurrent diverticulitis, no strong indication to repeat a colonoscopy before surgical intervention if needed. - Given hx of Afib, chest tightness will order EKG, Troponin -> normal.
[2017-10-04] MEDS ORDERED: DICYCLOMINE HCL 20 MG TAB PO PRN (11:15)
[2017-10-04] MEDS: ONDANSETRON INJ 2 MG/ML 2 ML VIAL IV PRN (11:38)
[2017-10-04] MEDS: SIMETHICONE 80 MG CHEW PO PRN ×2 (11:43→18:45)
[2017-10-04] MEDS: DAPTOmycin IV 500 MG in SYRINGE 0 ML IV SCH (12:53)
--- NOTE | 2017-10-04 13:25 | Progress Note ---
Internal Med Progress Note Date of Service: Oct 04, 2017. Provider Documentation: SUBJECTIVE: Seen and examined at bedside Has nausea and abd cramps earlier today Currently feels well Abd pain much improved Tolerating diet Denies chest pain, SOB Offers no other complaints Family at bedside OBJECTIVE: Vital Signs-as noted below Physical Exam: General Appearance:Moderately built and nourished, no apparent distress Head: normocephalic, Atraumatic Eyes: normal inspection, EOMI, PERRL Neck: supple, Trachea midline Respiratory/Chest: Normal breath sounds, CTA Cardiovascular: S1, S2, No murmur Abdomen/GI:Soft, mild tender, Bowel sounds present Extremities/Musculoskelatal:normal inspection, no edema Neurologic/Psych:AAOX3, grossly no focal neurological deficits Skin: normal color, warm Lab data as noted below. ASSESSMENT & PLAN: Uncomplicated/Recurrent diverticulitis: No improvement with ongoing ertapenem course No signs of sepsis Last Colonoscopy in Aug 2016 Continue IV Daptomycin and Primaxin per ID Blood cultures: No growth Stool: No C.diff Appreciate GI/Surgery Input Advance to low fiber diet as tolerated Continue Colace, dicyclomine, ranitidine will retest Stool for C.diff if diarrhea reoccurs Hypertension: stable Monitor Hyperkalemia: Resolved On IV fluids Monitor Held ACEI for now H/O PE/DVT S/P anticoagulation H/O P.Afib S/P Ablation Stable Hypothyroidism: Continue levothyroxine DVT px: Lovenox SQ. Code Status: Full code Disposition: Plan to discharge home when stable Vital Signs: Date Time Temp Pulse Resp B/P (MAP) Pulse Ox O2 Delivery O2 Flow Rate FiO2 10/04/17 08:16 37.0 76 16 133/74 (93) 95 Room Air 10/04/17 00:21 Room Air 10/04/17 00:10 36.6 87 20 120/66 (84) 96 Room Air 10/03/17 19:56 Room Air 10/03/17 15:34 36.9 76 18 126/80 (95) 96 Room Air Lab Results: Results Past 24 Hours Test 10/04/17 09:08 Range/Units White Blood Count 6.04 4.8-10.8 K/uL Red Blood Count 4.51 4.2-5.4 M/uL Hemoglobin 14.1 12.0-16.0 g/dL Hematocrit 40.2 37-47 % Mean Corpuscular Volume 89.1 80-100 fL Mean Corpuscular Hemoglobin 31.3 25-34 pg Mean Corpuscular Hemoglobin Concent 35.1 32-36 g/dl RDW Standard Deviation 38.8 36.4-46.3 fL RDW Coefficient of Variation 12.0 11.5-14.5 % Platelet Count 330 130-400 K/uL Mean Platelet Volume 9.0 7.4-10.4 fL Sodium Level 138 136-145 mmol/L Potassium Level 4.1 3.5-5.1 mmol/L Chloride Level 103 98-107 mmol/L Carbon Dioxide Level 28 21-32 mmol/L Anion Gap 7.0 3-11 mmol/L Blood Urea Nitrogen 7 7-18 mg/dl Creatinine 0.59 0.60-1.20 mg/dl Est Creatinine Clear Calc Drug Dose 97.6 ml/min Estimated GFR () 112.3 Estimated GFR (Non- 96.9 BUN/Creatinine Ratio 11.7 10-20 Random Glucose 95 70-99 mg/dl Calcium Level 9.3 8.5-10.1 mg/dl Microbiology Results 10/03/17 C.difficile Toxin B Gene (PCR) - Final, Complete No C. difficile toxin B gene detected
[2017-10-04 15:10] VITALS: BP 137/83; PULSE 90; TEMP 37; O2SAT 96
[2017-10-04] MEDS: ACETAMINOPHEN 325 MG TAB PO PRN (21:37)
[2017-10-04] MEDS: ZOLPIDEM TARTRATE 10 MG TAB PO PRN (23:04)
[2017-10-04 23:38] VITALS: BP 117/78; PULSE 70; TEMP 36.4; O2SAT 96
[2017-10-05] MEDS: IMIPENEM/CILASTATIN IV 500 MG in DEXTROSE 5% 100ML 100 ML IV SCH ×4 (01:29→20:27)
[2017-10-05] MEDS: LEVOTHYROXINE 100 MCG TAB PO SCH (06:13)
[2017-10-05 07:42] LABS: HEMATOCRIT 41.1 % (37-47); MEAN CELL VOLUME 89.3 fL (80-100); MEAN CORPUSCULAR HGB CONC 33.6 g/dl (32-36); MEAN PLATELET VOLUME 8.7 fL (7.4-10.4); PLATELET COUNT 342 K/uL (130-400); WHITE BLOOD COUNT 4.67 K/uL (4.8-10.8)
[2017-10-05 08:07] VITALS: BP 118/78; PULSE 73; TEMP 36.7; O2SAT 93
[2017-10-05 08:17] LABS: BUN/CREATININE RATIO 10.6 (10-20); CALCIUM 9.1 mg/dl (8.5-10.1); CREATININE 0.6 mg/dl (0.60-1.20)
[2017-10-05] MEDS: ENOXAPARIN 40 MG/0.4 ML SYR SQ SCH (09:00)
[2017-10-05] MEDS: POLYETHYLENE (MIRALAX) 17 GM PACK PO SCH (09:01)
[2017-10-05] MEDS: LACTOBACILLUS ACIDOPHILUS (FLORANEX) TAB PO SCH (09:01)
[2017-10-05] MEDS: RANITIDINE HCL 150 MG TAB PO SCH (09:01)
--- NOTE | 2017-10-05 10:35 | Surgery Progress Note ---
Surgery Progress Note Date of Service Oct 05, 2017. Subjective Post OP Day: HD # 3 + feeling well Feeling better this am, able to shower this morning. Had severe pain in RUQ last evening, but has resolved Still having LLQ abdominal pain but not as severe Feels bloated and has urge to have bowel movement but cannot tolerating soups and liquids Objective Vital Signs: Date Time Temp Pulse Resp B/P (MAP) Pulse Ox O2 Delivery O2 Flow Rate FiO2 10/05/17 08:07 36.7 73 18 118/78 (91) 93 10/05/17 07:30 Room Air 10/04/17 23:43 Room Air 10/04/17 23:38 36.4 70 18 117/78 (91) 96 Room Air 10/04/17 15:50 Room Air 10/04/17 15:10 37.0 90 18 137/83 (101) 96 Room Air 10/04/17 13:39 Room Air General Appearance: WD/WN, no apparent distress, + obese Head: normocephalic, atraumatic Neck: trachea midline Respiratory/Chest: no respiratory distress, no accessory muscle use Abdomen: non distended, soft, + tenderness (LLQ on deep palpation with voluntary guarding, no peritonitis or rigidity) Laboratory Results: Results Past 24 Hours Test 10/05/17 07:07 Range/Units White Blood Count 4.67 4.8-10.8 K/uL Red Blood Count 4.60 4.2-5.4 M/uL Hemoglobin 13.8 12.0-16.0 g/dL Hematocrit 41.1 37-47 % Mean Corpuscular Volume 89.3 80-100 fL Mean Corpuscular Hemoglobin 30.0 25-34 pg Mean Corpuscular Hemoglobin Concent 33.6 32-36 g/dl RDW Standard Deviation 38.8 36.4-46.3 fL RDW Coefficient of Variation 12.1 11.5-14.5 % Platelet Count 342 130-400 K/uL Mean Platelet Volume 8.7 7.4-10.4 fL Sodium Level 140 136-145 mmol/L Potassium Level 4.0 3.5-5.1 mmol/L Chloride Level 106 98-107 mmol/L Carbon Dioxide Level 27 21-32 mmol/L Anion Gap 7.0 3-11 mmol/L Blood Urea Nitrogen 6 7-18 mg/dl Creatinine 0.60 0.60-1.20 mg/dl Est Creatinine Clear Calc Drug Dose 96.0 ml/min Estimated GFR () 111.6 Estimated GFR (Non- 96.3 BUN/Creatinine Ratio 10.6 10-20 Random Glucose 94 70-99 mg/dl Calcium Level 9.1 8.5-10.1 mg/dl Assessment & Plan 62 y/o female with recurrent noncomplicated diverticulitis. This is 11th episode in past 8-10 years. Second episode requiring IV antibiotics and admission in the last 3 weeks, last admission was sent home on IV Ertapenem. Vitals have been stable throughout this admission. Afebrile and no leukocytosis. Abdominal examination is soft, with tenderness in the LLQ on deep palpation today, improved. Plan: From a surgical standpoint there is no indication for acute surgical intervention. Patient feeling better and pain improved and is having more of a bloating discomfort today, would recommend seeing how she does with low fiber diet for lunch and may be discharged on PO Cipro/Flagyl for 7 days. Follow-up in surgical office in 1 week, either with Dr. Pagan or Dr. Hopkins, to discuss elective sigmoid resection. She did have an appointment with Dr. Hopkins on 10/12/17 from last admission but cancelled this appointment. Recommend advancing diet slowly at home as tolerated Dr. Pagan has seen patient agrees with above.
--- NOTE | 2017-10-05 11:55 | Progress Note ---
Internal Med Progress Note Date of Service: Oct 05, 2017. Provider Documentation: SUBJECTIVE: Seen and examined at bedside Abd pain better today Tolerating diet No BM yet Denies Nausea, vomiting, chest pain, SOB Offers no other complaints Family at bedside Prefers to know if surgery is an option OBJECTIVE: Vital Signs-as noted below Physical Exam: General Appearance:Moderately built and nourished, no apparent distress Head: normocephalic, Atraumatic Eyes: normal inspection, EOMI, PERRL Neck: supple, Trachea midline Respiratory/Chest: Normal breath sounds, CTA Cardiovascular: S1, S2, No murmur Abdomen/GI:Soft, mild RLQ tender, Bowel sounds present Extremities/Musculoskelatal:normal inspection, no edema Neurologic/Psych:AAOX3, grossly no focal neurological deficits Skin: normal color, warm Lab data as noted below. ASSESSMENT & PLAN: Uncomplicated/Recurrent diverticulitis: No improvement with ongoing ertapenem course No signs of sepsis Last Colonoscopy in Aug 2016 Continue IV Daptomycin and Primaxin per ID Blood cultures: No growth Stool: No C.diff Appreciate GI/Surgery Input Advance to low fiber diet as tolerated Continue Colace, dicyclomine, ranitidine Surgery following Hypertension: stable Monitor Hyperkalemia: Resolved Monitor Held ACEI for now H/O PE/DVT S/P anticoagulation H/O P.Afib S/P Ablation Stable Hypothyroidism: Continue levothyroxine DVT px: Lovenox SQ. Code Status: Full code Disposition: Plan to discharge home when stable Vital Signs: Date Time Temp Pulse Resp B/P (MAP) Pulse Ox O2 Delivery O2 Flow Rate FiO2 10/05/17 08:07 36.7 73 18 118/78 (91) 93 10/05/17 07:30 Room Air 10/04/17 23:43 Room Air 10/04/17 23:38 36.4 70 18 117/78 (91) 96 Room Air 10/04/17 15:50 Room Air 10/04/17 15:10 37.0 90 18 137/83 (101) 96 Room Air 10/04/17 13:39 Room Air Lab Results: Results Past 24 Hours Test 10/05/17 07:07 Range/Units White Blood Count 4.67 4.8-10.8 K/uL Red Blood Count 4.60 4.2-5.4 M/uL Hemoglobin 13.8 12.0-16.0 g/dL Hematocrit 41.1 37-47 % Mean Corpuscular Volume 89.3 80-100 fL Mean Corpuscular Hemoglobin 30.0 25-34 pg Mean Corpuscular Hemoglobin Concent 33.6 32-36 g/dl RDW Standard Deviation 38.8 36.4-46.3 fL RDW Coefficient of Variation 12.1 11.5-14.5 % Platelet Count 342 130-400 K/uL Mean Platelet Volume 8.7 7.4-10.4 fL Sodium Level 140 136-145 mmol/L Potassium Level 4.0 3.5-5.1 mmol/L Chloride Level 106 98-107 mmol/L Carbon Dioxide Level 27 21-32 mmol/L Anion Gap 7.0 3-11 mmol/L Blood Urea Nitrogen 6 7-18 mg/dl Creatinine 0.60 0.60-1.20 mg/dl Est Creatinine Clear Calc Drug Dose 96.0 ml/min Estimated GFR () 111.6 Estimated GFR (Non- 96.3 BUN/Creatinine Ratio 10.6 10-20 Random Glucose 94 70-99 mg/dl Calcium Level 9.1 8.5-10.1 mg/dl
[2017-10-05] MEDS: ONDANSETRON INJ 2 MG/ML 2 ML VIAL IV PRN (13:33)
[2017-10-05] MEDS: DAPTOmycin IV 500 MG in SYRINGE 0 ML IV SCH (14:46)
[2017-10-05 15:08] VITALS: BP 111/74; PULSE 75; TEMP 36.8; O2SAT 94
[2017-10-05 15:30] VITALS: O2SAT 94
[2017-10-06] MEDS: ZOLPIDEM TARTRATE 10 MG TAB PO PRN (00:01)
[2017-10-06 00:45] VITALS: BP 105/65; PULSE 64; TEMP 36.5; O2SAT 95
[2017-10-06] MEDS: IMIPENEM/CILASTATIN IV 500 MG in DEXTROSE 5% 100ML 100 ML IV SCH ×3 (01:52→12:58)
[2017-10-06 06:05] LABS: BASO % 0.2 %; BASO ABS # 0.01 K/uL (0-0.2); COMPLETE YES; EOS % 2.9 %; HEMATOCRIT 39.4 % (37-47); IG% 0.2 %; LYMPH % 35.7 %; MEAN CELL VOLUME 88.5 fL (80-100); MEAN CORPUSCULAR HEMOGLOBIN 30.6 pg (25-34); MEAN CORPUSCULAR HGB CONC 34.5 g/dl (32-36); MEAN PLATELET VOLUME 8.7 fL (7.4-10.4); MONO % 13.7 %; NEUT % 47.3 %; PLATELET COUNT 298 K/uL (130-400); RED BLOOD COUNT 4.45 M/uL (4.2-5.4); WHITE BLOOD COUNT 4.76 K/uL (4.8-10.8)
[2017-10-06] MEDS: LEVOTHYROXINE 100 MCG TAB PO SCH (06:21)
[2017-10-06 06:37] LABS: BUN/CREATININE RATIO 12.9 (10-20); CALCIUM 8.8 mg/dl (8.5-10.1); CREATININE 0.61 mg/dl (0.60-1.20); POTASSIUM 3.8 mmol/L (3.5-5.1)
[2017-10-06 07:23] VITALS: BP 105/66; PULSE 58; TEMP 36.7; O2SAT 94
[2017-10-06] MEDS: ENOXAPARIN 40 MG/0.4 ML SYR SQ SCH (07:50)
--- NOTE | 2017-10-06 09:43 | Surgery Progress Note ---
Surgery Progress Note Date of Service Oct 06, 2017. Subjective Post OP Day: HD # 4 + feeling well, + complaints (LLQ pain), + ambulating, + diet (Reg Diet, Low fiber, Tolerating diet), No nausea, No vomiting No Bm today, Feeling well, Urinating without trouble. Denies fever, chills. Objective Vital Signs: Date Time Temp Pulse Resp B/P (MAP) Pulse Ox O2 Delivery O2 Flow Rate FiO2 10/06/17 07:23 36.7 58 18 105/66 (79) 94 Room Air 10/06/17 00:45 36.5 64 20 105/65 (78) 95 Room Air 10/06/17 00:00 Room Air 10/05/17 15:30 94 Room Air 10/05/17 15:08 36.8 75 18 111/74 (86) 94 General Appearance: WD/WN, no apparent distress Head: normocephalic, atraumatic Neck: supple, trachea midline Abdomen: normal bowel sounds, non distended, soft, no organomegaly, + tenderness (LLQ mild-moderate.) Laboratory Results: Results Past 24 Hours Test 10/06/17 05:33 Range/Units White Blood Count 4.76 4.8-10.8 K/uL Red Blood Count 4.45 4.2-5.4 M/uL Hemoglobin 13.6 12.0-16.0 g/dL Hematocrit 39.4 37-47 % Mean Corpuscular Volume 88.5 80-100 fL Mean Corpuscular Hemoglobin 30.6 25-34 pg Mean Corpuscular Hemoglobin Concent 34.5 32-36 g/dl Platelet Count 298 130-400 K/uL Mean Platelet Volume 8.7 7.4-10.4 fL Neutrophils (%) (Auto) 47.3 % Lymphocytes (%) (Auto) 35.7 % Monocytes (%) (Auto) 13.7 % Eosinophils (%) (Auto) 2.9 % Basophils (%) (Auto) 0.2 % Neutrophils # (Auto) 2.25 1.4-6.5 K/uL Lymphocytes # (Auto) 1.70 1.2-3.4 K/uL Monocytes # (Auto) 0.65 0.11-0.59 K/uL Eosinophils # (Auto) 0.14 0-0.5 K/uL Basophils # (Auto) 0.01 0-0.2 K/uL RDW Standard Deviation 38.7 36.4-46.3 fL RDW Coefficient of Variation 12.0 11.5-14.5 % Immature Granulocyte % (Auto) 0.2 % Immature Granulocyte # (Auto) 0.01 0.00-0.02 K/uL Sodium Level 140 136-145 mmol/L Potassium Level 3.8 3.5-5.1 mmol/L Chloride Level 106 98-107 mmol/L Carbon Dioxide Level 26 21-32 mmol/L Anion Gap 8.0 3-11 mmol/L Blood Urea Nitrogen 8 7-18 mg/dl Creatinine 0.61 0.60-1.20 mg/dl Est Creatinine Clear Calc Drug Dose 94.4 ml/min Estimated GFR () 111.0 Estimated GFR (Non- 95.8 BUN/Creatinine Ratio 12.9 10-20 Random Glucose 98 70-99 mg/dl Calcium Level 8.8 8.5-10.1 mg/dl Assessment & Plan HD # 4 Recurrent non-complicated diverticulitis Patient seen and examined with Dr. Dawson. No indication for acute surgical intervention at this time. Feeling better, still some LLQ tenderness, pain controlled. Tolerating Reg Low-fiber diet, ADAT at home. Okay for D/C from general surgery standpoint D/C with [facility]van Follow-up with either Dr. Pagan or Dr. Hopkins at [facility] outpatient clinic in 1 week to discuss possible elective sigmoid colectomy in the future. Patient seen and examined, agree with above. Uncomplicated diverticulitis, improving with antibiotics. Recommend transition to oral antibiotics, advance diet to low residual, low fiber diet. Okay for discharge from surgery perspective. Follow up with [facility] surgery to discuss possible elective sigmoidectomy due to multiple recurrences of diverticulitis. Return precautions given. Dori Dawson, DO regular diet (Low-Fiber, ADAT.) ambulate (as tolerated)
[2017-10-06] MEDS: RANITIDINE HCL 150 MG TAB PO SCH (09:50)
[2017-10-06] MEDS: POLYETHYLENE (MIRALAX) 17 GM PACK PO SCH (09:50)
[2017-10-06] MEDS: LACTOBACILLUS ACIDOPHILUS (FLORANEX) TAB PO SCH (09:50)
--- NOTE | 2017-10-06 12:25 | Progress Note ---
Internal Med Progress Note Date of Service: Oct 06, 2017. Provider Documentation: SUBJECTIVE: Seen and examined at bedside Doing well today Mild abd pain discomfort, Tolerating diet No BM yet Denies Nausea, vomiting, chest pain, SOB Offers no other complaints Eager to get discharged OBJECTIVE: Vital Signs-as noted below Physical Exam: General Appearance:Moderately built and nourished, no apparent distress Head: normocephalic, Atraumatic Eyes: normal inspection, EOMI, PERRL Neck: supple, Trachea midline Respiratory/Chest: Normal breath sounds, CTA Cardiovascular: S1, S2, No murmur Abdomen/GI:Soft, non tender, Bowel sounds present Extremities/Musculoskelatal:normal inspection, no edema Neurologic/Psych:AAOX3, grossly no focal neurological deficits Skin: normal color, warm Lab data as noted below. ASSESSMENT & PLAN: Uncomplicated/Recurrent diverticulitis: No improvement with ongoing ertapenem course No signs of sepsis Last Colonoscopy in Aug 2016 Continue IV Daptomycin and Primaxin per ID Discussed with yesterday: Plan to be discharged on cipro and flagyl for 7 days Blood cultures: No growth Stool: No C.diff Appreciate GI/Surgery Input Advance to low fiber diet as tolerated Continue Colace, dicyclomine, ranitidine Surgery following Plan to follow-up with Dr. Hopkins in 1 week for possible elective sigmoid colectomy. Hypertension: stable Monitor Hyperkalemia: Resolved Monitor Held ACEI for now H/O PE/DVT S/P anticoagulation H/O P.Afib S/P Ablation Stable Hypothyroidism: Continue levothyroxine DVT px: Lovenox SQ. Code Status: Full code Disposition: Plan to discharge home today Follow up with on 10/09/17 at 1:45pm Follow up with your surgeon in 1 week as advised for possible elective sigmoid colectomy. Complete the antibiotics as advised Seek immediate medical attention if your symptoms reoccur or worsen Vital Signs: Date Time Temp Pulse Resp B/P (MAP) Pulse Ox O2 Delivery O2 Flow Rate FiO2 10/06/17 07:23 36.7 58 18 105/66 (79) 94 Room Air 10/06/17 00:45 36.5 64 20 105/65 (78) 95 Room Air 10/06/17 00:00 Room Air 10/05/17 15:30 94 Room Air 10/05/17 15:08 36.8 75 18 111/74 (81) 94 Lab Results: Results Past 24 Hours Test 10/06/17 05:33 Range/Units White Blood Count 4.76 4.8-10.8 K/uL Red Blood Count 4.45 4.2-5.4 M/uL Hemoglobin 13.6 12.0-16.0 g/dL Hematocrit 39.4 37-47 % Mean Corpuscular Volume 88.5 80-100 fL Mean Corpuscular Hemoglobin 30.6 25-34 pg Mean Corpuscular Hemoglobin Concent 34.5 32-36 g/dl Platelet Count 298 130-400 K/uL Mean Platelet Volume 8.7 7.4-10.4 fL Neutrophils (%) (Auto) 47.3 % Lymphocytes (%) (Auto) 35.7 % Monocytes (%) (Auto) 13.7 % Eosinophils (%) (Auto) 2.9 % Basophils (%) (Auto) 0.2 % Neutrophils # (Auto) 2.25 1.4-6.5 K/uL Lymphocytes # (Auto) 1.70 1.2-3.4 K/uL Monocytes # (Auto) 0.65 0.11-0.59 K/uL Eosinophils # (Auto) 0.14 0-0.5 K/uL Basophils # (Auto) 0.01 0-0.2 K/uL RDW Standard Deviation 38.7 36.4-46.3 fL RDW Coefficient of Variation 12.0 11.5-14.5 % Immature Granulocyte % (Auto) 0.2 % Immature Granulocyte # (Auto) 0.01 0.00-0.02 K/uL Sodium Level 140 136-145 mmol/L Potassium Level 3.8 3.5-5.1 mmol/L Chloride Level 106 98-107 mmol/L Carbon Dioxide Level 26 21-32 mmol/L Anion Gap 8.0 3-11 mmol/L Blood Urea Nitrogen 8 7-18 mg/dl Creatinine 0.61 0.60-1.20 mg/dl Est Creatinine Clear Calc Drug Dose 94.4 ml/min Estimated GFR () 111.0 Estimated GFR (Non- 95.8 BUN/Creatinine Ratio 12.9 10-20 Random Glucose 98 70-99 mg/dl Calcium Level 8.8 8.5-10.1 mg/dl
[2017-10-06] MEDS ORDERED: BNT20 PO (12:53)
[2017-10-06] MEDS ORDERED: CPR500 PO (12:53)
[2017-10-06] MEDS ORDERED: METR500T PO (12:53)
[2017-10-06] MEDS ORDERED: CLC100X PO (12:53)
[2017-10-06] MEDS ORDERED: MRLP17 PO ×2 (12:53→12:56)
--- NOTE | 2017-10-06 12:57 | Discharge Summary ---
Discharge Summary Date of Service Oct 06, 2017. Discharge Summary Admission Date: Oct 02, 2017 at 01:43 Discharge Date: Oct 06, 2017 Discharge Disposition: Home Principal Diagnosis: Recurrent Diverticulitis Procedures: CT ABD: 1. Findings are consistent with acute sigmoid diverticulitis. No intraperitoneal free air is seen and there is no evidence of abscess. 2. The patient has had diverticulitis at this site on several prior examinations. If not recently performed, follow-up with colonoscopy is recommended for further assessment. 3. Hepatomegaly and hepatic steatosis. 4. Additional findings as above. Consultations: GI, Surgery Pending Studies/Follow-Up: Follow up with on 10/09/17 at 1:45pm Follow up with your surgeon in 1 week as advised for possible elective sigmoid colectomy. Complete the antibiotics as advised Seek immediate medical attention if your symptoms reoccur or worsen Medication Reconciliation New Medications: Ciprofloxacin (Ciprofloxacin HCl) 500 Mg Tab 500 MG PO BID for 7 Days, #14 TAB Metronidazole (Flagyl) 500 Mg Tab 500 MG PO TID for 7 Days, #21 TAB Dicyclomine HCl (Dicyclomine HCl) 20 Mg Tab 20 MG PO BID PRN for cramping for 10 Days, #20 TAB Docusate Sodium (Docusate Sodium) 100 Mg Cap 100 MG PO BID PRN for constipation for 10 Days, #20 CAP Polyethylene (Miralax) 17 Gm Pow 17 GM PO DAILY PRN for constipation for 7 Days, #7 EA Continued Medications: Albuterol Sulf (Proventil 0.083% 2.5MG/3ML) 2.5 Mg/3 Ml Nebu 2.5 MG INH Q4 PRN for SOB/Wheezing, EA Cholecalciferol (Vitamin D3) 1,000 Unit Tab 1 TAB PO DAILY for 90 Days, #90 TAB 3 Refills Hydrocodone/Acetaminophen 10MG/325MG ([place] 10MG/325MG) Tab 1 TAB PO Q6 PRN for Pain Lactobacillus Acidophilus (Floranex) 1 Tab Tab 4 TAB PO DAILY for 5 Days, #20 TAB Levothyroxine Sodium (Synthroid) 100 Mcg Tab 100 MCG PO DAILYBB for 30 Days, TAB Lisinopril (Prinivil) 20 Mg Tab 20 MG PO QAM, TAB [place]-3 Fatty Acids (Fish Oil) 1 Cap Cap 1 CAP PO DAILY Ranitidine (Zantac) 150 Mg Tab 150 MG PO PRN, TAB Valacyclovir Hcl (Valtrex) 1 Gm Tab 1000 MG PO DAILY PRN for OUTBREAKS, #21 TAB Zolpidem Tartrate (Ambien) 10 Mg Tab 10 MG PO HS, TAB Discontinued Medications: Ertapenem Sodium (Invanz) 1 Gm Inj 1 GM IV QAM, VIAL Admission Information HPI (per Admitting provider): CHIEF COMPLAINT: Abdominal pain. History was obtained from the patient and records. HISTORY OF PRESENT ILLNESS: Medical history is significant for recurrent diverticulitis, hypertension, PAF status post ablation, hyperlipidemia, COPD, past tobacco abuse as per records, hypothyroidism. Recent confinement about 2 weeks ago for LGIB secondary to recurrent diverticulitis. Patient discharged on IV ertapenem course as per ID recommendation. Patient also seen by GI and Surgery during confinement. Outpatient colorectal surgery referral was recommended after colonoscopy. At home, patient is comfortable. Stools mushy, 4 times a day. Yesterday, she noted achy left lower quadrant pain going across with nausea, no vomiting, no fever, no chills, no bloody stools. Patient was still on the last 2 days of Ertapenem course. She had scallops, some noodles prior to abdominal pain. [facility] case sealer recommended going back to a soft diet. Patient was brought to the Emergency Room. Patient went to the Emergency Room because of intractable pain. Physical Exam (per Admitting): PHYSICAL EXAMINATION: VITAL SIGNS: Blood pressure was noted to be 114/79, pulse rate 95, RR 18 and sats 98 on room air. GENERAL: Noted to be obese, slightly anxious, no respiratory distress. SKIN: Normal color. Warm. HEENT: [place] palpebral conjunctivae. No ptosis. Dry buccal mucosa. NECK: Short neck. No tenderness. CHEST: Clear to auscultation. No tenderness. CV: Regular rate and rhythm. No murmur. Palpable LE pulses. ABDOMEN: Distention , Left lower quadrant tenderness. EXTREMITIES: Minimal LE edema, no tenderness. No gross deformities. NEUROLOGIC: Coherent, no gross focality. Hospital Course Uncomplicated/Recurrent diverticulitis: No improvement with ongoing ertapenem course No signs of sepsis Last Colonoscopy in Aug 2016 Continue IV Daptomycin and Primaxin per ID Discussed with yesterday: Plan to be discharged on cipro and flagyl for 7 days Blood cultures: No growth Stool: No C.diff Appreciate GI/Surgery Input Advance to low fiber diet as tolerated Continue Colace, dicyclomine, ranitidine Surgery following Plan to follow-up with Dr. Hopkins in 1 week for possible elective sigmoid colectomy. Hypertension: stable Monitor Hyperkalemia: Resolved Monitor Held ACEI for now H/O PE/DVT S/P anticoagulation H/O P.Afib S/P Ablation Stable Hypothyroidism: Continue levothyroxine DVT px: Lovenox SQ. Code Status: Full code Disposition: Plan to discharge home today Follow up with on 10/09/17 at 1:45pm Follow up with your surgeon in 1 week as advised for possible elective sigmoid colectomy. Complete the antibiotics as advised Seek immediate medical attention if your symptoms reoccur or worsen Total time spent on discharge = 35 minutes This includes examination of the patient, discharge planning, medication reconciliation, and communication with other providers. Discharge Instructions Discharge Instructions Date of Service Oct 06, 2017. Admission Reason for Admission: Diverticulitis Discharge Discharge Diagnosis / Problem: Recurrent Diverticulitis Discharge Goals Goal(s): Decrease discomfort, Improve function Activity Recommendations Activity Limitations: resume your previous activity Exercise/Sports Limitations: as tolerated . Instructions / Follow-Up Instructions / Follow-Up Follow up with on 10/09/17 at 1:45pm Follow up with your surgeon in 1 week as advised for possible elective sigmoid colectomy. Complete the antibiotics as advised Seek immediate medical attention if your symptoms reoccur or worsen Current Hospital Diet Patient's current hospital diet: Low Fiber Diet Discharge Diet Recommended Diet: AHA Diet (Heart Healthy), Low Fiber Diet Pending Studies Studies pending at discharge: no Medical Emergencies . Who to Call and When: Medical Emergencies: If at any time you feel your situation is an emergency, please call 911 immediately. . Non-Emergent Contact Non-Emergency issues call your: Primary Care Provider, Surgeon Call Non-Emergent contact if: you have a fever, your pain is not controlled, your pain is worsening, your pain is unusual for you, your pain is concerning you, you have any medication questions Seek immediate medical attention if your symptoms reoccur or worsen . . "Provider Documentation" section prepared by Daniele Jernigan. . VTE Core Measure Inpt VTE Proph given/why not?: Enoxaparin (Lovenox)SQ <Electronically signed by Daniele Jernigan MD> Signed: 10/06/17 2005 Signed: The status of this report is Signed * If report status is Draft, the document has not been finalized by the responsible provider.
[2017-10-06] MEDS: DAPTOmycin IV 500 MG in SYRINGE 0 ML IV SCH (12:58)
[2017-10-06 13:52] VITALS: BP 105/66; PULSE 58; TEMP 36.7; O2SAT 94
== END 2017-10-06 14:30 | disposition home or self-care (01) | DRG 392 ==
LOC: C.EDB 23:02 → C.MS2W 10-02 01:43 → ENRESERV 10-02 01:59
PROVIDERS: ADMIT Internal Medicine; ATTEND Internal Medicine
DX: K57.32 Diverticulitis of large intestine without perforation or abscess without bleeding (principal); K21.9 Gastro-esophageal reflux disease without esophagitis; E78.5 Hyperlipidemia, unspecified; I10 Essential (primary) hypertension; E03.9 Hypothyroidism, unspecified; I48.0 Paroxysmal atrial fibrillation; R19.4 Change in bowel habit; E87.5 Hyperkalemia; E86.0 Dehydration; J45.909 Unspecified asthma, uncomplicated; Z79.899 Other long term (current) drug therapy; Z86.711 Personal history of pulmonary embolism; Z86.718 Personal history of other venous thrombosis and embolism; Z88.0 Allergy status to penicillin; Z88.2 Allergy status to sulfonamides

== ENCOUNTER 2017-10-10 19:11 | Emergency (ER) | payer OTHER ==
[~2017-10-10] VITALS: Ht 157.5 cm; Wt 83.7 kg
[~2017-10-10 19:11] MED LIST changes: +BNT20 PO; +CLC100X PO; +CPR500 PO; -DFL100 PO; +HYDR-4079 PO; +METR500T PO; +MRLP17 PO; -ULT50X PO
[2017-10-10 19:29] VITALS: TEMP 36.9; Ht 157.5 cm; Wt 83.7 kg
[2017-10-10] MEDS ORDERED: SODIUM CHLORIDE 0.9% 1000ML 1,000 ML IV STA (19:47)
[2017-10-10] MEDS ORDERED: MoRPHine SULFATE 4 MG/ML 1 ML CARP\\VIAL IV STA (19:54)
[2017-10-10] MEDS ORDERED: OPTIRAY 320 IV PRN (20:00)
--- NOTE | 2017-10-10 20:10 | EMERGENCY ROOM VISIT NOTE ---
History Report prepared by Yelena: Gabriel Franco Under the Supervision of: Dr. Ricardo Breen M.D. First contact with patient: 19:46 Chief Complaint: GI ASSESSMENT Stated Complaint: DIVERTICULITIS History of Present Illness The patient is a 62 year old female who presents to the Emergency Room with complaints of worsening left abdominal pain starting four days ago. She currently rates her discomfort as an 8/10 in severity. The patient states that she was recently admitted in the hospital for diverticulitis, and she was discharged four days ago. She states that while she was in the hospital the pain was manageable, though once she left it has gotten much worse. Additionally , the patient states that she got labs done yesterday, and they were abnormal. The patient denies any urinary burning and hematuria. She is not currently on any blood thinners. She is additionally complaining of bruising on her abdomen. Source of History: patient Onset: four days ago Position: abdomen Symptom Intensity: 8/10 Timing: worsening Associated Symptoms: No urinary symptoms Note: Associated symptoms: Bruising on her abdomen Review of Systems See HPI for pertinent positives and negatives. A total of ten systems were reviewed and were otherwise negative. Past Medical & Surgical Medical Problems: (1) Asthma (2) Diverticulitis (3) DIVERTICULITIS COLON (W/O MENT OF HEMORRHAGE) (4) Gastroesophageal reflux disease (5) HX-VENOUS THROMBOSIS&EMBOLISM (6) HYPERLIPIDEMIA NEC/NOS (7) HYPERTENSION NOS (8) Hypothyroidism (9) Irritable colon (10) s/p appendectomy (11) s/p cervical discectomy + fusion (12) s/p hysterectomy (13) s/p lumbar hemilaminectomy (14) SPINAL STENOSIS-LUMBAR (15) Spine surgery Family History FH: cancer FH: heart disease Hypertension Social History Smoking Status: Former Smoker Alcohol Use: occasionally Marital Status: Housing Status: lives with family Current/Historical Medications Scheduled Cholecalciferol (Vitamin D3), 1,000 UNITS PO DAILY Ciprofloxacin (Ciprofloxacin HCl), 500 MG PO BID Lactobacillus Acidophilus (Floranex), 4 TAB PO DAILY Levothyroxine Sodium (Synthroid), 100 MCG PO DAILYBB Metronidazole (Flagyl), 500 MG PO TID [place]-3 Fatty Acids (Fish Oil), 1 CAP PO DAILY Ranitidine (Zantac), 150 MG PO PRN Zolpidem Tartrate (Ambien), 10 MG PO HS Scheduled PRN Albuterol Sulf (Proventil 0.083% 2.5MG/3ML), 2.5 MG INH Q4 PRN for SOB/Wheezing Dicyclomine HCl (Dicyclomine HCl), 20 MG PO BID PRN for cramping Docusate Sodium (Docusate Sodium), 100 MG PO BID PRN for constipation Hydrocodone/Acetaminophen 10MG/325MG ([place] 10MG/325MG), 1 TAB PO Q6 PRN for Pain Lidocaine (Lidoderm Patch 5%), 1 PATCH TD DAILY PRN for Pain Polyethylene (Miralax), 17 GM PO DAILY PRN for constipation Valacyclovir Hcl (Valtrex), 1,000 MG PO DAILY PRN for OUTBREAKS Allergies Coded Allergies: Fentanyl (Verified Allergy, Unknown, itching, 10/10/17) Levofloxacin (Verified Allergy, Unknown, CAN'T TAKE WITH FLECAINIDE, 10/10) gmg Penicillins (Verified Allergy, Unknown, RASH, 10/10/17) ALLERGY IS RASH Sulfa Antibiotics (Verified Allergy, Unknown, ., 10/10/17) Sulfamethoxazole (Verified Allergy, Unknown, 10/10/17) Replaces SULFAMETHOXAZ Trimethoprim (Verified Allergy, Unknown, 10/10/17) Replaces SULFAMETHOXAZ Metronidazole (Verified Adverse Reaction, Unknown, 0, 10/10/17) GI upset w PO Flagyl; px can tolerate IV Flagyl Physical Exam Vital Signs Date Time Temp Pulse Resp B/P (MAP) Pulse Ox O2 Delivery O2 Flow Rate FiO2 10/10/17 23:19 98 20 166/102 96 10/10/17 21:54 88 18 146/93 95 Room Air 10/10/17 20:56 75 10/10/17 19:29 36.9 78 16 161/115 94 Room Air Physical Exam GENERAL: Awake, alert,uncomfortable-appearing, in mild distress HENT: Dry mucous membranes. Normocephalic, atraumatic. Oropharynx unremarkable. EYES: Normal conjunctiva. Sclera non-icteric. NECK: Supple. No nuchal rigidity. FROM. No JVD. RESPIRATORY: Clear to auscultation. CARDIAC: Regular rate, normal rhythm. Extremities warm and well perfused. Pulses equal. ABDOMEN: Diffuse abdominal tenderness. Minor four 1cm areas of ecchymosis symmetrically in the lower abdomen from prior Lovenox injections. No palpable hematomas. Soft, non-distended. No rebound or guarding. No masses. RECTAL: Deferred. MUSCULOSKELETAL: Chest examination reveals no tenderness. The back is symmetrical on inspection without obvious abnormality. There is no CVA tenderness to palpation. No joint edema. LOWER EXTREMITIES: Calves are equal size bilaterally and non-tender. No edema. No discoloration. NEURO: Normal sensorium. No sensory or motor deficits noted. SKIN: No rash or jaundice noted. Medical Decision & Procedures ER Provider Diagnostic Interpretation: Radiology results as stated below per my review and radiologist interpretation: CHEST ONE VIEW PORTABLE HISTORY: 62 years-old Female abd pain r/o perf acute generalized abdominal pain with concern for possible perforation. COMPARISON: Chest radiograph 01/05/2017, CT 10/02/2017. TECHNIQUE: Portable AP view of the chest FINDINGS: Cardiomediastinal and hilar silhouettes are within normal limits. There is mild right hemidiaphragmatic elevation. There is no pneumothorax, pleural effusion, focal airspace consolidation or overt pulmonary edema. The bones of the chest appear grossly intact. Degenerative changes are seen within the spine and shoulders. Fusion hardware of the cervical spine is noted. IMPRESSION: No acute cardiopulmonary process. The above report was generated using voice recognition software. It may contain grammatical, syntax or spelling errors. Electronically signed by: Satinder King M.D. 10/10/2017 8:19 PM Dictated Date/Time: 10/10/2017 8:17 PM ABDOMEN AND PELVIS CT WITH IV CONTRAST CT DOSE: 968.96 mGy.cm HISTORY: Acute generalized abdominal pain. diffuse abd pain TECHNIQUE: Multiaxial CT images of the abdomen and pelvis were performed following the use of intravenous contrast. A dose lowering technique was utilized adhering to the principles of ALARA. COMPARISON STUDY: CT abdomen and pelvis 10/02/2017. FINDINGS: Mild dependent bibasilar atelectasis. There is no pneumoperitoneum or pneumatosis identified. Imaged inferior cardiac chambers are upper limits of normal in size. The liver, spleen, pancreas, adrenal glands and gallbladder are unremarkable. No intrahepatic biliary ductal dilation. Kidneys, ureters and urinary bladder are unremarkable. Prior hysterectomy. It is moderate atherosclerosis of the abdominal aorta. No bulky adenopathy identified. There is minimal fluid within the distal esophagus. No bowel obstruction identified. Moderate to extensive sigmoid diverticulosis is redemonstrated. There is mild wall thickening with surrounding inflammatory stranding of the mid sigmoid colon with adjacent thickening of the adjacent peritoneum as seen on images 321 through 344 of series 3. No abscess identified. Findings have minimally improved from prior exam. The appendix is not identified and is likely surgically absent. Diastases recti. There is moderate atrophy of the paraspinal musculature. Degenerative changes of the lumbar spine are noted. Pedicle screws are seen on the right at L5-S1 with prior discectomy. Grade 1 anterolisthesis L4 on L5, likely secondary to facet disease. IMPRESSION: 1. Mild acute diverticulitis of the mid sigmoid colon has slightly improved from comparison study 10/02/2017. No evidence of abscess or perforation. 2. Additional findings as above. Electronically signed by: Satinder King M.D. 10/10/2017 10:05 PM Dictated Date/Time: 10/10/2017 9:58 PM Laboratory Results 10/10/17 20:20 Red Blood Count 4.68, Mean Corpuscular Volume 88.0, Mean Corpuscular Hemoglobin 32.1, Mean Corpuscular Hemoglobin Concent 36.4, Mean Platelet Volume 8.9, Neutrophils (%) (Auto) 52.7, Lymphocytes (%) (Auto) 33.3, Monocytes (%) (Auto) 11.8, Eosinophils (%) (Auto) 1.6, Basophils (%) (Auto) 0.3, Neutrophils # (Auto ) 3.71, Lymphocytes # (Auto) 2.34, Monocytes # (Auto) 0.83, Eosinophils # (Auto ) 0.11, Basophils # (Auto) 0.02 10/10/17 20:20 Test 10/10/17 20:00 10/10/17 20:20 10/10/17 20:31 Urine Color YELLOW Urine Appearance CLEAR (CLEAR) Urine pH 5.0 (4.5-7.5) Urine Specific [place] 1.021 (1.000-1.030) Urine Protein NEG (NEG) Urine Glucose (UA) NEG (NEG) Urine Ketones NEG (NEG) Urine Occult Blood NEG (NEG) Urine Nitrite NEG (NEG) Urine Bilirubin NEG (NEG) Urine Urobilinogen NEG (NEG) Urine Leukocyte Esterase SMALL (NEG) Urine WBC (Auto) 1-5 /hpf (0-5) Urine RBC (Auto) 0-4 /hpf (0-4) Urine Hyaline Casts (Auto) 1-5 /lpf (0-5) Urine Epithelial Cells (Auto) >30 /lpf (0-5) Urine Bacteria (Auto) NEG (NEG) White Blood Count 7.03 K/uL (4.8-10.8) Red Blood Count 4.68 M/uL (4.2-5.4) Hemoglobin 15.0 g/dL (12.0-16.0) Hematocrit 41.2 % (37-47) Mean Corpuscular Volume 88.0 fL (80-100) Mean Corpuscular Hemoglobin 32.1 pg (25-34) Mean Corpuscular Hemoglobin Concent 36.4 g/dl (32-36) Platelet Count 374 K/uL (130-400) Mean Platelet Volume 8.9 fL (7.4-10.4) Neutrophils (%) (Auto) 52.7 % Lymphocytes (%) (Auto) 33.3 % Monocytes (%) (Auto) 11.8 % Eosinophils (%) (Auto) 1.6 % Basophils (%) (Auto) 0.3 % Neutrophils # (Auto) 3.71 K/uL (1.4-6.5) Lymphocytes # (Auto) 2.34 K/uL (1.2-3.4) Monocytes # (Auto) 0.83 K/uL (0.11-0.59) Eosinophils # (Auto) 0.11 K/uL (0-0.5) Basophils # (Auto) 0.02 K/uL (0-0.2) RDW Standard Deviation 39.1 fL (36.4-46.3) RDW Coefficient of Variation 12.2 % (11.5-14.5) Immature Granulocyte % (Auto) 0.3 % Immature Granulocyte # (Auto) 0.02 K/uL (0.00-0.02) Anion Gap 11.0 mmol/L (3-11) Est Creatinine Clear Calc Drug Dose 66.3 ml/min Estimated GFR () 82.7 Estimated GFR (Non- 71.4 BUN/Creatinine Ratio 14.0 (10-20) Calcium Level 9.3 mg/dl (8.5-10.1) Total Bilirubin 0.3 mg/dl (0.2-1) Direct Bilirubin < 0.1 mg/dl (0-0.2) Aspartate Amino Transf (AST/SGOT) 34 U/L (15-37) Alanine Aminotransferase (ALT/SGPT) 62 U/L (12-78) Alkaline Phosphatase 84 U/L (45-117) Total Protein 6.9 gm/dl (6.4-8.2) Albumin 3.5 gm/dl (3.4-5.0) Lipase 306 U/L (73-393) Lactic Acid Level 0.7 mmol/L (0.4-2.0) Laboratory results reviewed by me Medications Administered Medications (Trade) Dose Ordered Sig/Kt Route Start Time Stop Time Status Last Admin Dose Admin Sodium Chloride 1,000 ml @ 999 mls/hr Q1H1M STAT IV 10/10/17 19:47 10/10/17 20:47 DC 10/10/17 20:17 999 MLS/HR Morphine Sulfate (MoRPHine SULFATE INJ) 8 mg NOW STAT IV 10/10/17 19:54 10/10/17 19:57 DC 10/10/17 20:17 8 MG Ondansetron HCl (Zofran Inj) 4 mg STK-MED ONCE .ROUTE 10/10/17 20:41 10/10/17 20:42 DC 10/10/17 20:45 4 MG Lidocaine (Lidoderm Patch 5%) 1 patch QAM TD 10/11/17 09:00 11/10/17 08:59 10/10/17 23:18 1 PATCH ED Course 6: The patient was evaluated in room C12. A complete history and physical exam was performed. 1946: Sodium Chloride 1000 ml @ 999 mls/hr IV 1953: Morphine Sulfate 8mg IV 2040: Zofran 4mg IV 1: I reevaluated the patient. Discussed results and discharge instructions: She verbalized understanding and agreement. The patient is ready for discharge. Medical Decision I reviewed the patient's past medical history, medications, and the nursing notes as described above. Differential diagnoses include: worsening diverticulitis, perforation, dehydration, electrolyte abnormality, obstruction. The patient is a 62-year-old woman with a past medical history of active treatment for diverticulitis with repeated admissions for the same currently on antibiotics presents to the ED with worsening left-sided pain per history of present illness. Of note the patient had outpatient labs yesterday which showed an ESR of 30 so patient was concerned about this. On arrival the patient is uncomfortable in mild distress, afebrile with stable vital signs. On exam the patient had generalized tenderness particularly in the left lower quadrant and otherwise had small ecchymotic areas that corresponded to inpatient Lovenox injections, however without any underlying hematoma. Labs were reassuring with WBC, lactate, LFTs within normal limits. CT scan of the abdomen and pelvis showed interval improvement with the patient's known diverticulitis. Thus give her an overall improvement no indication for admission at this time, however I offered the patient the option for admission if she felt her pain was refractory. Patient was feeling improved at this point and preferred discharge with follow-up with her PCP and her GI specialist. Findings and plan for follow-up reviewed with patient. Patient agreeable and d/c'd per discharge instructions. Medication Reconcilliation Current Medication List: was personally reviewed by me Blood Pressure Screening Patient's blood pressure: Elevated blood pressure Blood pressure disposition: Elevated BP felt to be situational Impression Primary Impression: Sigmoid diverticulitis Scribe Attestation The scribe's documentation has been prepared under my direction and personally reviewed by me in its entirety. I confirm that the note above accurately reflects all work, treatment, procedures, and medical decision making performed by me. Departure Information Dispostion Home / Self-Care Prescriptions Lidocaine (Lidoderm Patch 5%) 1 Ea Tdsy 1 PATCH TD DAILY Y for Pain for 7 Days, #7 PATCH Apply to painful areas for 12 hours then 12 hours off. Prov: Ricardo Breen M.D. 10/10/17 Referrals Cj Rico III, M.D. (PCP) Forms HOME CARE DOCUMENTATION FORM, IMPORTANT VISIT INFORMATION Patient Instructions ED Diverticulitis, My [facility] Additional Instructions Please follow up with your primary care physician and GI specialist in the next 1-3 days for re-evaluation. Your symptoms are likely related to your known diverticulitis, which shows improvement on your CT scan. Otherwise, your exam, chest xray, CT scan, and lab results did not show signs of an emergent condition at this time. Continue your current medications as prescribed. If experiencing constipation with use of your hydrocodone then begin stool softener such as colace. Continue your current diet recommendations. Lidoderm patch for pain as directed. Ensure hydration. Return to the emergency department for worsening symptoms as described in the accompanying instructions.
--- NOTE | 2017-10-10 20:20 | DIAGNOSTIC IMAGING REPORT ---
CHEST ONE VIEW PORTABLE HISTORY: 62 years-old Female abd pain r/o perf acute generalized abdominal pain with concern for possible perforation. COMPARISON: Chest radiograph 01/05/2017, CT 10/02/2017. TECHNIQUE: Portable AP view of the chest FINDINGS: Cardiomediastinal and hilar silhouettes are within normal limits. There is mild right hemidiaphragmatic elevation. There is no pneumothorax, pleural effusion, focal airspace consolidation or overt pulmonary edema. The bones of the chest appear grossly intact. Degenerative changes are seen within the spine and shoulders. Fusion hardware of the cervical spine is noted. IMPRESSION: No acute cardiopulmonary process. The above report was generated using voice recognition software. It may contain grammatical, syntax or spelling errors. Electronically signed by: Satinder King M.D. 10/10/2017 8:19 PM Dictated Date/Time: 10/10/2017 8:17 PM
[2017-10-10 20:28] LABS: URINE APPEARANCE CLEAR (CLEAR); URINE BILIRUBIN NEG (NEG); URINE COLOR YELLOW; URINE EPITHELIAL CELL AUTO >30 /lpf (0-5); URINE NITRITE NEG (NEG); URINE SPECIFIC GRAVITY 1.021 (1.000-1.030); UROBILINOGEN NEG (NEG); ZZUR CULT IF INDIC CLEAN CATCH NO
[2017-10-10 20:29] LABS: MANUAL MICROSCOPIC REQUIRED? NO; REVIEW REQ? NO
[2017-10-10 20:34] LABS: BASO % 0.3 %; BASO ABS # 0.02 K/uL (0-0.2); COMPLETE YES; EOS % 1.6 %; HEMATOCRIT 41.2 % (37-47); IG% 0.3 %; LYMPH % 33.3 %; LYMPH ABS # 2.34 K/uL (1.2-3.4); MEAN CORPUSCULAR HEMOGLOBIN 32.1 pg (25-34); MEAN CORPUSCULAR HGB CONC 36.4 g/dl (32-36); MEAN PLATELET VOLUME 8.9 fL (7.4-10.4); MONO % 11.8 %; NEUT % 52.7 %; PLATELET COUNT 374 K/uL (130-400); RED BLOOD COUNT 4.68 M/uL (4.2-5.4); WHITE BLOOD COUNT 7.03 K/uL (4.8-10.8)
[2017-10-10] MEDS ORDERED: ONDANSETRON INJ 2 MG/ML 2 ML VIAL ONE (20:41)
[2017-10-10 20:57] LABS: ALT/SGPT 62 U/L (12-78); AST/SGOT 34 U/L (15-37); BLOOD UREA NITROGEN 12 mg/dl (7-18); CALCIUM 9.3 mg/dl (8.5-10.1); CARBON DIOXIDE 24 mmol/L (21-32); CHLORIDE 105 mmol/L (98-107); CREATININE 0.86 mg/dl (0.60-1.20); GLUCOSE 95 mg/dl (70-99); POTASSIUM 3.7 mmol/L (3.5-5.1); SODIUM 139 mmol/L (136-145)
[2017-10-10 20:59] LABS: ALKALINE PHOSPHATASE 84 U/L (45-117)
--- NOTE | 2017-10-10 22:06 | DIAGNOSTIC IMAGING REPORT ---
ABDOMEN AND PELVIS CT WITH IV CONTRAST CT DOSE: 968.96 mGy.cm HISTORY: Acute generalized abdominal pain. diffuse abd pain TECHNIQUE: Multiaxial CT images of the abdomen and pelvis were performed following the use of intravenous contrast. A dose lowering technique was utilized adhering to the principles of ALARA. COMPARISON STUDY: CT abdomen and pelvis 10/02/2017. FINDINGS: Mild dependent bibasilar atelectasis. There is no pneumoperitoneum or pneumatosis identified. Imaged inferior cardiac chambers are upper limits of normal in size. The liver, spleen, pancreas, adrenal glands and gallbladder are unremarkable. No intrahepatic biliary ductal dilation. Kidneys, ureters and urinary bladder are unremarkable. Prior hysterectomy. It is moderate atherosclerosis of the abdominal aorta. No bulky adenopathy identified. There is minimal fluid within the distal esophagus. No bowel obstruction identified. Moderate to extensive sigmoid diverticulosis is redemonstrated. There is mild wall thickening with surrounding inflammatory stranding of the mid sigmoid colon with adjacent thickening of the adjacent peritoneum as seen on images 321 through 344 of series 3. No abscess identified. Findings have minimally improved from prior exam. The appendix is not identified and is likely surgically absent. Diastases recti. There is moderate atrophy of the paraspinal musculature. Degenerative changes of the lumbar spine are noted. Pedicle screws are seen on the right at L5-S1 with prior discectomy. Grade 1 anterolisthesis L4 on L5, likely secondary to facet disease. IMPRESSION: 1. Mild acute diverticulitis of the mid sigmoid colon has slightly improved from comparison study 10/02/2017. No evidence of abscess or perforation. 2. Additional findings as above. Electronically signed by: Satinder King M.D. 10/10/2017 10:05 PM Dictated Date/Time: 10/10/2017 9:58 PM
[2017-10-10] MEDS ORDERED: NF656 TD (22:47)
[2017-10-10] MEDS ORDERED: LIDODERM (LIDOCAINE) PATCH 5% ONE (23:14)
[2017-10-10 23:19] VITALS: BP 166/102; PULSE 98; O2SAT 96
[2017-10-11] MEDS ORDERED: LIDODERM (LIDOCAINE) PATCH 5% TD SCH (09:00)
== END 2017-10-10 23:21 | disposition home or self-care (01) ==
LOC: C.EDB 19:12 → C.EDC 23:21
DX: K57.32 Diverticulitis of large intestine without perforation or abscess without bleeding (principal); J45.909 Unspecified asthma, uncomplicated; I10 Essential (primary) hypertension; E03.9 Hypothyroidism, unspecified; Z86.718 Personal history of other venous thrombosis and embolism; Z98.1 Arthrodesis status; Z90.89 Acquired absence of other organs; Z90.710 Acquired absence of both cervix and uterus; Z98.890 Other specified postprocedural states; Z79.899 Other long term (current) drug therapy

== ENCOUNTER 2018-01-08 16:38 | Inpatient (IN) | payer OTHER ==
[~2018-01-08] VITALS: Ht 154.9 cm; Wt 82.6 kg
[~2018-01-08 16:38] MED LIST changes: -LISI20TA3 PO; -METR500T PO; +NF656 TD; +RANI150T85 PO; -ZNTT/150 PO
[2018-01-08] MEDS ORDERED: SODIUM CHLORIDE 0.9% 1000ML 500 ML IV STA (17:05)
[2018-01-08] MEDS ORDERED: ONDANSETRON INJ 2 MG/ML 2 ML VIAL IV STA (17:05)
[2018-01-08] MEDS ORDERED: CLINDAMYCIN 600 MG/54 ML D5W IV ONE (17:15)
[2018-01-08] MEDS ORDERED: CLINDAMYCIN IV 900 MG in DEXTROSE 5% 50ML 44 ML IV SCH (17:15)
--- NOTE | 2018-01-08 17:17 | EMERGENCY ROOM VISIT NOTE ---
History Report prepared by Yelena: Marin Ramos Under the Supervision of: Dr. Frank Castellon M.D. First contact with patient: 17:04 Chief Complaint: INFECTION Stated Complaint: INFECTION OF SURGERY INCISION History of Present Illness The patient is a 62 year old female who presents to the Emergency Room with complaints of waxing and waning sharp abdominal pain that began about two weeks ago. She rates her pain between a 7 and a 9 out of 10 in severity. She has a past medical history of a partial colectomy that occurred on December 26. Her sigmoid colon was taken out secondary to diverticulitis. She stayed at [place] for five days before she was discharged. After she was discharged, she still persisted to have some abdominal discomfort and notes a general unwell feeling. Recently, she has been experiencing chills, dizziness, nausea, and a lessened appetite. She is concerned that her incision site may be infected. She notes that she has been having some urinary pressure, but no other abnormal urinary symptoms. She denies any fevers. She notes that she was retaining fluid in her legs last week and was evaluated by Dr. Rico. Her BNP was elevated so she was placed on Lasix. She denies any recent antibiotic use. Source of History: patient Onset: about 2 weeks ago Position: abdomen Symptom Intensity: 7-9/10 Quality: sharp Timing: waxes/wanes Associated Symptoms: + chills, + nausea, + urinary symptoms (pressure, no others), No fevers Note: She is experiencing dizziness and a lessened appetite. Review of Systems See HPI for pertinent positives & negatives. A total of 10 systems reviewed and were otherwise negative. Past Medical & Surgical Medical Problems: (1) Asthma (2) Diverticulitis (3) DIVERTICULITIS COLON (W/O MENT OF HEMORRHAGE) (4) Gastroesophageal reflux disease (5) HX-VENOUS THROMBOSIS&EMBOLISM (6) HYPERLIPIDEMIA NEC/NOS (7) HYPERTENSION NOS (8) Hypothyroidism (9) Irritable colon (10) s/p appendectomy (11) s/p cervical discectomy + fusion (12) s/p hysterectomy (13) s/p lumbar hemilaminectomy (14) SPINAL STENOSIS-LUMBAR (15) Spine surgery Family History FH: cancer FH: heart disease Hypertension Social History Smoking Status: Never Smoker Alcohol Use: occasionally Marital Status: Housing Status: lives with family Current/Historical Medications Scheduled Cholecalciferol (Vitamin D3), 1,000 UNITS PO DAILY Ciprofloxacin (Ciprofloxacin HCl), 500 MG PO BID Lactobacillus Acidophilus (Floranex), 4 TAB PO DAILY Levothyroxine Sodium (Synthroid), 100 MCG PO DAILYBB [place]-3 Fatty Acids (Fish Oil), 1 CAP PO DAILY Ranitidine (Zantac), 150 MG PO PRN Zolpidem Tartrate (Ambien), 10 MG PO HS Scheduled PRN Albuterol Sulf (Proventil 0.083% 2.5MG/3ML), 2.5 MG INH Q4 PRN for SOB/Wheezing Dicyclomine HCl (Dicyclomine HCl), 20 MG PO BID PRN for cramping Docusate Sodium (Docusate Sodium), 100 MG PO BID PRN for constipation Hydrocodone/Acetaminophen 10MG/325MG ([place] 10MG/325MG), 1 TAB PO Q6 PRN for Pain Lidocaine (Lidoderm Patch 5%), 1 PATCH TD DAILY PRN for Pain Polyethylene (Miralax), 17 GM PO DAILY PRN for constipation Valacyclovir Hcl (Valtrex), 1,000 MG PO DAILY PRN for OUTBREAKS Allergies Coded Allergies: Tramadol (Verified Allergy, Intermediate, Hallucinations, 01/08/18) Fentanyl (Verified Allergy, Unknown, itching, 01/08/18) Levofloxacin (Verified Allergy, Unknown, CAN'T TAKE WITH FLECAINIDE, ) gmg Penicillins (Verified Allergy, Unknown, RASH, 01/08/18) ALLERGY IS RASH Sulfa Antibiotics (Verified Allergy, Unknown, ., 01/08/18) Sulfamethoxazole (Verified Allergy, Unknown, 01/08/18) Replaces SULFAMETHOXAZ Trimethoprim (Verified Allergy, Unknown, 01/08/18) Replaces SULFAMETHOXAZ Metronidazole (Verified Adverse Reaction, Unknown, 0, 01/08/18) GI upset w PO Flagyl; px can tolerate IV Flagyl Physical Exam Vital Signs Date Time Temp Pulse Resp B/P (MAP) Pulse Ox O2 Delivery O2 Flow Rate FiO2 01/08/18 20:05 72 20 127/83 93 Room Air 01/08/18 18:38 36.8 116/68 98 01/08/18 17:46 70 20 116/68 96 2/13/18 16:57 36.9 76 20 141/88 96 Room Air Physical Exam GENERAL: Patient is in no acute distress. HEENT: No acute trauma, normocephalic atraumatic, mucous membranes moist, no nasal congestion, no scleral icterus. NECK: No stridor, no adenopathy, no meningismus, trachea is midline. LUNGS: Clear to auscultation bilaterally, no wheeze, no rhonchi, breath sounds equal. HEART: Without murmurs gallops or rubs, regular rate and rhythm. ABDOMEN: No peritonitis. No evidence for hernia. The vertical midline abdominal incision is healing fairly well. There is erythema and tenderness to the lower aspect of the incision. Erythema size is around 8 or so cm. EXTREMITIES: No cyanosis or edema, full range of motion of all the joints without pain or difficulty, no signs for acute trauma. NEUROLOGIC: Oriented x 3, no acute motor or sensory deficits, no focal weakness. SKIN: No rash, no jaundice, no diaphoresis. Medical Decision & Procedures ER Provider Diagnostic Interpretation: Radiology results as stated below per my review and radiologist interpretation: CHEST ONE VIEW PORTABLE CLINICAL HISTORY: 62 years-old Female presenting with ABDOMINAL PAIN/GI. TECHNIQUE: Portable upright AP view of the chest was obtained. COMPARISON: 10/10/2017. FINDINGS: Cardiomediastinal silhouette normal. Lungs and pleural spaces clear. Anterior cervical fixation hardware noted. Upper abdomen normal. IMPRESSION: 1. No acute cardiopulmonary disease. Electronically signed by: Laith Bermudez M.D. 01/08/2018 5:30 PM Dictated Date/Time: 01/08/2018 5:29 PM ABD/PELVIS IV AND ORAL CONT CLINICAL HISTORY: 62 years-old Female presenting with ABD PAIN, POSS ABSCESS GIVE PO AND IV CONTRAST. TECHNIQUE: Multidetector CT of the abdomen and pelvis was performed after the administration of oral and intravenous contrast. IV contrast: None. A dose lowering technique was used consistent with the principles of ALARA (as low as reasonably achievable). COMPARISON: 10/10/2017. CT DOSE (mGy.cm): The estimated cumulative dose is 911.11 mGy.cm. FINDINGS: Slubber Machine Operator topogram: Surgical material projects over the epigastrium. Lung bases: Minimal basilar opacities, likely atelectasis. Mild left atrial enlargement. No pericardial or pleural effusion. Liver: Normal morphology. No liver lesion. Patent hepatic vasculature. Biliary: Minimal intrahepatic bladder ductal dilatation diffusely. The common duct is nondilated. Normal gallbladder. Pancreas: Mild parenchymal atrophy. Spleen: Normal. Adrenal glands: Normal. Kidneys and ureters: Normal parenchymal enhancement. No hydronephrosis. No nephrolithiasis. Subtle left urothelial thickening and periureteral fat stranding at the renal pelvis. Ureters not dilated. No ureteral calculi. Bladder: Incompletely evaluated secondary to underdistention. Pelvic organs: Uterus surgically absent. No adnexal masses. Bowel: Postsurgical changes of sigmoidectomy with a colocolonic anastomosis at the upper rectum. Rim-enhancing fluid collection in the presacral space posterior to the mid rectum, which measures 4.3 cm in maximal transverse dimension. This tracks superiorly to the peritoneal reflection along the right posterior lateral aspect of the upper rectum. No intraperitoneal component. The fluid collection does not appear intimately associated with the anastomotic site. Few diverticula noted in the descending colon. Trace pericolonic fat stranding along the descending colon without significant wall thickening. No bowel obstruction. Peritoneal cavity: No free fluid or intraperitoneal gas. Trace peritoneal thickening along the left paracolic gutter. Lymph nodes: No enlarged lymph nodes in the abdomen or pelvis. Vasculature: Atherosclerosis of the normal caliber abdominal aorta. IVC patent. Abdominal wall: Inflammatory change and trace fluid with fat fluid levels in the infraumbilical midline ventral abdominal incision site. More inferiorly there is diffuse anterior abdominal wall skin thickening and subcutaneous fat infiltration. Musculoskeletal: Degenerative changes of the spine. Transpedicular screw and hussein fixation on the right at L5-S1. IMPRESSION: 1. Postsurgical changes of sigmoidectomy with colocolonic anastomosis at the upper rectum. 2. Associated 4.3 cm rim-enhancing fluid collection in the presacral space. This does not directly abut the anastomotic site and may represent reactive postsurgical fluid. However, the primary differential consideration is abscess. 3. Mild reactive changes of the descending colon and along the left paracolic gutter. No convincing evidence of acute diverticulitis. These changes may be reactive to the presence of the presacral collection or expected in the early postsurgical setting. 4. Fat necrosis and inflammatory change in the surgical incision. 5. Extensive skin thickening and subcutaneous fat infiltration in the anterior abdominal wall raises concern for cellulitis. Electronically signed by: Laith Bermudez M.D. 01/08/2018 8:05 PM Dictated Date/Time: 01/08/2018 7:56 PM Laboratory Results 01/08/18 17:35 Red Blood Count 4.56, Mean Corpuscular Volume 90.6, Mean Corpuscular Hemoglobin 31.4, Mean Corpuscular Hemoglobin Concent 34.6, Mean Platelet Volume 8.6, Neutrophils (%) (Auto) 63.1, Lymphocytes (%) (Auto) 26.1, Monocytes (%) (Auto) 7.0, Eosinophils (%) (Auto) 2.8, Basophils (%) (Auto) 0.6, Neutrophils # (Auto) 5.93, Lymphocytes # (Auto) 2.45, Monocytes # (Auto) 0.66, Eosinophils # (Auto) 0.26, Basophils # (Auto) 0.06 01/08/18 17:35 Test 01/08/18 17:35 01/08/18 17:48 White Blood Count 9.40 K/uL (4.8-10.8) Red Blood Count 4.56 M/uL (4.2-5.4) Hemoglobin 14.3 g/dL (12.0-16.0) Hematocrit 41.3 % (37-47) Mean Corpuscular Volume 90.6 fL (80-100) Mean Corpuscular Hemoglobin 31.4 pg (25-34) Mean Corpuscular Hemoglobin Concent 34.6 g/dl (32-36) Platelet Count 560 K/uL (130-400) Mean Platelet Volume 8.6 fL (7.4-10.4) Neutrophils (%) (Auto) 63.1 % Lymphocytes (%) (Auto) 26.1 % Monocytes (%) (Auto) 7.0 % Eosinophils (%) (Auto) 2.8 % Basophils (%) (Auto) 0.6 % Neutrophils # (Auto) 5.93 K/uL (1.4-6.5) Lymphocytes # (Auto) 2.45 K/uL (1.2-3.4) Monocytes # (Auto) 0.66 K/uL (0.11-0.59) Eosinophils # (Auto) 0.26 K/uL (0-0.5) Basophils # (Auto) 0.06 K/uL (0-0.2) RDW Standard Deviation 46.0 fL (36.4-46.3) RDW Coefficient of Variation 13.8 % (11.5-14.5) Immature Granulocyte % (Auto) 0.4 % Immature Granulocyte # (Auto) 0.04 K/uL (0.00-0.02) Prothrombin Time 11.4 SECONDS (9.0-12.0) Prothromb Time International Ratio 1.1 (0.9-1.1) Activated Partial Thromboplast Time 28.2 SECONDS (21.0-31.0) Partial Thromboplastin Ratio 1.1 Anion Gap 7.0 mmol/L (3-11) Est Creatinine Clear Calc Drug Dose 79.8 ml/min Estimated GFR () 104.3 Estimated GFR (Non- 90.0 BUN/Creatinine Ratio 20.2 (10-20) Lactic Acid Level 1.2 mmol/L (0.4-2.0) Calcium Level 9.6 mg/dl (8.5-10.1) Total Bilirubin 0.5 mg/dl (0.2-1) Aspartate Amino Transf (AST/SGOT) 19 U/L (15-37) Alanine Aminotransferase (ALT/SGPT) 49 U/L (12-78) Alkaline Phosphatase 85 U/L (45-117) Total Protein 7.5 gm/dl (6.4-8.2) Albumin 3.3 gm/dl (3.4-5.0) Globulin 4.2 gm/dl (2.5-4.0) Albumin/Globulin Ratio 0.8 (0.9-2) Lipase 76 U/L (73-393) Urine Color YELLOW Urine Appearance CLEAR (CLEAR) Urine pH 5.0 (4.5-7.5) Urine Specific [place] 1.015 (1.000-1.030) Urine Protein NEG (NEG) Urine Glucose (UA) NEG (NEG) Urine Ketones NEG (NEG) Urine Occult Blood NEG (NEG) Urine Nitrite NEG (NEG) Urine Bilirubin NEG (NEG) Urine Urobilinogen NEG (NEG) Urine Leukocyte Esterase NEG (NEG) Laboratory results reviewed by me. Medications Administered Medications (Trade) Dose Ordered Sig/Kt Route Start Time Stop Time Status Last Admin Dose Admin Sodium Chloride 500 ml @ 999 mls/hr Q31M STAT IV 01/08/18 17:05 01/08/18 17:35 DC 2/13/18 17:39 999 MLS/HR Ondansetron HCl (Zofran Inj) 4 mg NOW STAT IV 01/08/18 17:05 01/08/18 17:14 DC 01/08/18 17:39 4 MG Morphine Sulfate (MoRPHine SULFATE INJ) 4 mg Q15M PRN IV 01/08/18 17:15 01/22/18 17:14 01/08/18 18:54 4 MG Clindamycin Phosphate 900 mg/ Dextrose 50 ml @ 100 mls/hr TODAY@1715 IV 01/08/18 17:15 01/08/18 20:00 DC 01/08/18 17:15 100 MLS/HR ED Course 1704: The patient was evaluated in room C4. A complete history and physical exam was performed. 5: Ordered Zofran Inj 4 mg IV, Sodium Chloride 500 ml @ 999 mls/hr IV 1714: Ordered Clindamycin Phosphate 900 mg/Dextrose 50 ml @ 100 mls/hr IV, Morphine Sulfate 4 mg IV 1937: I updated the patient at this time. She is about to get her CT scan. 2024: I discussed the patient's case with Dr. Baca of [facility] general surgery at this time. They accepted the patient for further evaluation and transfer. However, a bed is not available until mostly likely tomorrow. They recommended antibiotics here overnight until a bed is made available. 2037: Ordered Sodium Chloride 500 ml @ 999 mls/hr IV 5: Upon reexamination the patient is resting. I discussed results and treatment plan with the patient. She verbalizes agreement and understanding. I spoke with Dr. Schwab of the [facility] Hospitalist service. We discussed the patient's results and findings. The patient will be evaluated by him for further management. Medical Decision Differential diagnosis includes but is not limited to abscess, abdominal wound infection, UTI, anemia, electrolyte imbalance, dehydration, pneumonia, and fistula. There is no leukocytosis or concerning anemia. No significant electrolyte abnormality, kidney failure, hepatitis or pancreatitis. Chest film does not show pneumonia or free air. Urinalysis does not show infection. Lactic acid level is not elevated making sepsis less likely. Abdominal and pelvis CT shows an abdominal wall cellulitis, there also was a collection of fluid anterior to the sacrum thought to be consistent with hematoma or possibly abscess. The patient received IV clindamycin, she does have multiple allergies and this was felt an appropriate choice given these allergies. She was given IV saline, IV morphine and IV Zofran. The patient has felt poorly for the last few days, she's had chills and some fever and lower abdominal pain. I did speak with the on-call [facility] surgical service. The patient was going to be transferred to their facility this evening however, there were no beds available. The decision has been made to keep the patient at our hospital for tonight. She can be transferred in the morning when a bed becomes available. She is to be kept nothing by mouth, she will be resuscitated with fluids, antibiotics will be continued. I spoke to the patient and case management. The on-call hospitalist was consulted. The patient is aware of all her findings and is in agreement with the plan. Medication Reconcilliation Current Medication List: was personally reviewed by me Blood Pressure Screening Patient's blood pressure: Normal blood pressure Blood pressure disposition: Did not require urgent referral Consults Time Called: 2019 Consulting Physician: Dr. Phuong Rizzo [facility] [place] [facility] Returned Call: [phone] We discussed the patient's case. They accepted the patient for further evaluation and transfer. However, a bed is not available. They recommended further evaluation in our hospital with antibiotics until tomorrow, when a bed will be made available and transfer is possible. Additional Consults: Time Called: 2039 Consulted Physician: Dr. Josselin Castro Hospitalist Returned Call: [phone] Additional Comments: Discussed the patient's case. The patient will be evaluated for further management. Impression Primary Impression: Abdominal wall cellulitis Additional Impressions: Intra-abdominal abscess History of open sigmoidectomy Scribe Attestation The scribe's documentation has been prepared under my direction and personally reviewed by me in its entirety. I confirm that the note above accurately reflects all work, treatment, procedures, and medical decision making performed by me. Departure Information Dispostion Being Evaluated By Hospitalist Referrals Cj Rico III, M.D. (PCP) Patient Instructions My [facility] Problem Qualifiers
[2018-01-08] MEDS ORDERED: OPTIRAY 320 IV PRN (17:30)
--- NOTE | 2018-01-08 17:32 | DIAGNOSTIC IMAGING REPORT ---
CHEST ONE VIEW PORTABLE CLINICAL HISTORY: 62 years-old Female presenting with ABDOMINAL PAIN/GI. TECHNIQUE: Portable upright AP view of the chest was obtained. COMPARISON: 10/10/2017. FINDINGS: Cardiomediastinal silhouette normal. Lungs and pleural spaces clear. Anterior cervical fixation hardware noted. Upper abdomen normal. IMPRESSION: 1. No acute cardiopulmonary disease. Electronically signed by: Laith Bermudez M.D. 01/08/2018 5:30 PM Dictated Date/Time: 01/08/2018 5:29 PM
[2018-01-08] MEDS: MoRPHine SULFATE 4 MG/ML 1 ML CARP\\VIAL IV PRN ×3 (17:39→20:52)
[2018-01-08 18:01] LABS: BASO % 0.6 %; BASO ABS # 0.06 K/uL (0-0.2); EOS % 2.8 %; EOS ABS # 0.26 K/uL (0-0.5); HEMATOCRIT 41.3 % (37-47); HEMOGLOBIN 14.3 g/dL (12.0-16.0); IG# 0.04 K/uL (0.00-0.02); LYMPH % 26.1 %; LYMPH ABS # 2.45 K/uL (1.2-3.4); MEAN CELL VOLUME 90.6 fL (80-100); MEAN CORPUSCULAR HEMOGLOBIN 31.4 pg (25-34); MEAN CORPUSCULAR HGB CONC 34.6 g/dl (32-36); MEAN PLATELET VOLUME 8.6 fL (7.4-10.4); MONO ABS # 0.66 K/uL (0.11-0.59); NEUT % 63.1 %; NEUT ABS # 5.93 K/uL (1.4-6.5); PLATELET COUNT 560 K/uL (130-400); RED CELL DISTRIBUTION WIDTH CV 13.8 % (11.5-14.5)
[2018-01-08 18:19] LABS: INR 1.1 (0.9-1.1); PTT PATIENT 28.2 SECONDS (21.0-31.0)
[2018-01-08 18:23] LABS: ALBUMIN 3.3 gm/dl (3.4-5.0); CALCIUM 9.6 mg/dl (8.5-10.1); CREATININE 0.71 mg/dl (0.60-1.20); POTASSIUM 4.1 mmol/L (3.5-5.1)
[2018-01-08 18:26] LABS: TOTAL PROTEIN 7.5 gm/dl (6.4-8.2)
--- NOTE | 2018-01-08 20:07 | DIAGNOSTIC IMAGING REPORT ---
ABD/PELVIS IV AND ORAL CONT CLINICAL HISTORY: 62 years-old Female presenting with ABD PAIN, POSS ABSCESS GIVE PO AND IV CONTRAST. TECHNIQUE: Multidetector CT of the abdomen and pelvis was performed after the administration of oral and intravenous contrast. IV contrast: None. A dose lowering technique was used consistent with the principles of ALARA (as low as reasonably achievable). COMPARISON: 10/10/2017. CT DOSE (mGy.cm): The estimated cumulative dose is 911.11 mGy.cm. FINDINGS: Fixed Route Bus Operator topogram: Surgical material projects over the epigastrium. Lung bases: Minimal basilar opacities, likely atelectasis. Mild left atrial enlargement. No pericardial or pleural effusion. Liver: Normal morphology. No liver lesion. Patent hepatic vasculature. Biliary: Minimal intrahepatic bladder ductal dilatation diffusely. The common duct is nondilated. Normal gallbladder. Pancreas: Mild parenchymal atrophy. Spleen: Normal. Adrenal glands: Normal. Kidneys and ureters: Normal parenchymal enhancement. No hydronephrosis. No nephrolithiasis. Subtle left urothelial thickening and periureteral fat stranding at the renal pelvis. Ureters not dilated. No ureteral calculi. Bladder: Incompletely evaluated secondary to underdistention. Pelvic organs: Uterus surgically absent. No adnexal masses. Bowel: Postsurgical changes of sigmoidectomy with a colocolonic anastomosis at the upper rectum. Rim-enhancing fluid collection in the presacral space posterior to the mid rectum, which measures 4.3 cm in maximal transverse dimension. This tracks superiorly to the peritoneal reflection along the right posterior lateral aspect of the upper rectum. No intraperitoneal component. The fluid collection does not appear intimately associated with the anastomotic site. Few diverticula noted in the descending colon. Trace pericolonic fat stranding along the descending colon without significant wall thickening. No bowel obstruction. Peritoneal cavity: No free fluid or intraperitoneal gas. Trace peritoneal thickening along the left paracolic gutter. Lymph nodes: No enlarged lymph nodes in the abdomen or pelvis. Vasculature: Atherosclerosis of the normal caliber abdominal aorta. IVC patent. Abdominal wall: Inflammatory change and trace fluid with fat fluid levels in the infraumbilical midline ventral abdominal incision site. More inferiorly there is diffuse anterior abdominal wall skin thickening and subcutaneous fat infiltration. Musculoskeletal: Degenerative changes of the spine. Transpedicular screw and hussein fixation on the right at L5-S1. IMPRESSION: 1. Postsurgical changes of sigmoidectomy with colocolonic anastomosis at the upper rectum. 2. Associated 4.3 cm rim-enhancing fluid collection in the presacral space. This does not directly abut the anastomotic site and may represent reactive postsurgical fluid. However, the primary differential consideration is abscess. 3. Mild reactive changes of the descending colon and along the left paracolic gutter. No convincing evidence of acute diverticulitis. These changes may be reactive to the presence of the presacral collection or expected in the early postsurgical setting. 4. Fat necrosis and inflammatory change in the surgical incision. 5. Extensive skin thickening and subcutaneous fat infiltration in the anterior abdominal wall raises concern for cellulitis. Electronically signed by: Laith Bermudez M.D. 01/08/2018 8:05 PM Dictated Date/Time: 01/08/2018 7:56 PM
[2018-01-08] MEDS ORDERED: SODIUM CHLORIDE 0.9% 500ML 500 ML IV STA (20:37)
[2018-01-08] MEDS ORDERED: ERTAPENEM 1 GM ADDVIAL IV ONE (20:45)
[2018-01-08] MEDS ORDERED: DICY20TA10 PO (20:53)
[2018-01-08] MEDS ORDERED: DOCU100C31 PO (20:55)
[2018-01-08] MEDS ORDERED: LACT1TAB4 PO (20:56)
[2018-01-08] MEDS ORDERED: FURO-85 PO (20:58)
[2018-01-08] MEDS ORDERED: LEVO100T7 PO (20:59)
[2018-01-08] MEDS ORDERED: ONDA8TAB62 SL (21:00)
[2018-01-08] MEDS ORDERED: TIOT1SPR INH (21:01)
[2018-01-08] MEDS ORDERED: LISI-725 PO (21:03)
[2018-01-08] MEDS ORDERED: NYSS/ PO (21:06)
[2018-01-08] MEDS ORDERED: ENOX40IN SQ (21:07)
[2018-01-08] MEDS ORDERED: LORA-741 PO (21:09)
[2018-01-08] MEDS ORDERED: ERTAPENEM IV 1 GM in SODIUM CHLOR 0.9% AD-VAN 50ML IV STA (21:11)
[2018-01-08] MEDS ORDERED: LORAZEPAM 0.5 MG TAB PO ONE (22:09)
[2018-01-08] MEDS ORDERED: LORAZEPAM 0.5 MG TAB PO PRN (22:15)
[2018-01-08 22:33] VITALS: O2SAT 93
[2018-01-08] MEDS ORDERED: ZOLPIDEM TARTRATE 10 MG TAB PO ONE (22:39)
[2018-01-08] MEDS ORDERED: HYDROmorphone INJ 1 MG/ML SYR IV PRN (22:45)
[2018-01-08] MEDS ORDERED: ACETAMINOPHEN 325 MG TAB PO PRN (22:45)
[2018-01-08] MEDS ORDERED: KETOROLAC TROMETHAMINE 30 MG/ML VIAL IV PRN (22:45)
[2018-01-08] MEDS ORDERED: LORAZEPAM 2 MG/ML 1 ML VIAL IV PRN (22:45)
[2018-01-08] MEDS ORDERED: HYDROCODONE/ACETAMI 10/325 TAB PO PRN (22:45)
[2018-01-08] MEDS ORDERED: RANITIDINE HCL 150 MG TAB PO PRN (22:45)
[2018-01-08 22:49] VITALS: BP 136/93; PULSE 83; TEMP 36.3; O2SAT 94
[2018-01-08 22:52] VITALS: BP 136/93; PULSE 83; TEMP 36.3; Ht 154.9 cm; Wt 82.6 kg
[2018-01-08] MEDS ORDERED: ERTAPENEM CONSULT ACTIVE PRN (23:30)
[2018-01-08] MEDS ORDERED: LORAZEPAM INJ 0.5 MG in SYRINGE 0.75 ML IV PRN (23:30)
[2018-01-08] MEDS ORDERED: SODIUM CHLORIDE 0.9% 1000ML 1,000 ML IV SCH (23:30)
[2018-01-09 00:52] VITALS: BP 136/93; PULSE 83; TEMP 36.3; O2SAT 95
--- NOTE | 2018-01-09 01:57 | DISCHARGE SUMMARY ---
DIAGNOSIS ON ADMISSION: Pelvic abscess/abdominal wall cellulitis Recent bowel surgery for complicated diverticulitis. DIAGNOSIS ON DISCHARGE: Same. HOSPITAL COURSE : Kindly refer to H&P dictated by undersigned on admission. Patient underwent hand assisted laparoscopic low anterior resection bowel surgery in [place] last December 26, 2017 for recurrent diverticulitis. Patient went to the Emergency Room for persistent abdominal pain symptoms and redness on the abdominal wall. CAT scan showed postsurgical changes of sigmoidectomy with colocolonic anastomosis of the rectum associated 4.3 cm rim enhancing fluid collection in the presacral space - not directly abutting the anastomotic site may represent reactive post-surgical fluid, possible abscess. Fat necrosis, inflammatory changes over skin incision, extensive skin thickening and subcutaneous fat. Anterior abdominal wall cellulitis. Patient received clindamycin in the Emergency Room. Accepted for transfer by [facility] colorectal surgeon systems protection technician (Dr. Baca) pending bed availability. Hospitalist service requested to admit patient interim. Received IV ertapenem during confinement. Patient subsequently transferred to [facility] with bed availability. Total time to dictate this discharge summary was 10 minutes. MTDD
--- NOTE | 2018-01-09 02:20 | HISTORY & PHYSICAL EXAMINATION ---
DATE OF ADMISSION: 01/08/2018 PRIMARY CARE DOCTOR: Cj Rico MD. CHIEF COMPLAINT: Abdominal pain. HISTORY OF PRESENT ILLNESS: History obtained from the patient and records. Medical history significant for recurrent diverticulitis status post bowel surgery, hypertension, history of PE/DVT status post anticoagulation, PAF status post ablation, COPD, past tobacco abuse, hypothyroidism. Recent confinement September 2017 for recurrent diverticulitis. Patient completed antibiotic Rx. Patient underwent elective bowel surgery/hand-assisted laparoscopic low anterior [place] [facility] [place]2017 for recurrent diverticulitis. Persistent generalized achy abdominal pain since discharge with poor appetite, some nausea, no vomiting, some chills, some bladder discomfort. Loose stools, non-bloody. Increased redness on the anterior abdomen and worsening abdominal pain over last 2 days. Patient seen by PCP. Attempt to contact surgeon outpatient as per notes. Intermittent leg swelling outpatient, improved on outpatient Lasix prescription. Patient went to the Emergency Room. CAT scan showed postsurgical changes, sigmoidectomy with colocolonic anastomosis of the rectum, 4.3 cm rim enhancing fluid collection in the presacral space, possible reactive post-surgical fluid versus abscess, mild reactive changes, descending colon paracolic gutter, no evidence of diverticulitis, fat necrosis and inflammatory changes of the surgical incision, extensive skin thickening, subcutaneous fat infiltration, anterior abdominal wall concerned for cellulitis. Patient received clindamycin in the ER. Patient accepted for transfer by [facility] colorectal surgeon pending bed availability. MEDICAL HISTORY: As above. SURGERIES: She has had bowel surgery, neck surgery, breast reduction, appendectomy, oophorectomy, tonsillectomy, hysterectomy. HOME MEDICATIONS: Include Zantac, Spiriva, Valtrex, Ambien, Vicodin, Floranex, levothyroxine, Ativan, Zestril, Nystatin, Zofran, Proventil, vitamin D3, dicyclomine, docusate sodium, Lovenox, Lasix. ALLERGIES: FENTANYL, METRONIDAZOLE, BACTRIM, TRAMADOL, LEVOFLOXACIN, PENICILLIN AND SULFA. FAMILY HISTORY: Heart disease. PERSONAL AND SOCIAL HISTORY: Past tobacco use. No chronic intake of alcoholic beverages. 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 REVIEW OF SYSTEMS: As per HPI, all 10 systems reviewed. All other ROS negative. PHYSICAL EXAMINATION: VITAL SIGNS: Blood pressure was noted to be 130/68, pulse rate 70, RR 26, temperature 36.9, sats 96 on room. GENERAL: Noted to be anxious, obese, no respiratory distress, tearful. SKIN: Warm. Normal color. HEENT: [place] palpebral conjunctivae. No ptosis. Dry mucosa. NECK: Short and nontender. CHEST: Clear to auscultation. No tenderness. HEART: Regular rate and rhythm, no murmur. ABDOMEN: Erythematous induration, lower anterior abdominal wall with some tenderness, Abdominal distention. EXTREMITIES: Minimal LE edema, no tenderness. No gross deformity. NEUROLOGIC: Coherent. No gross focality. LABORATORY DATA: Hemoglobin was noted to be 14.3, hematocrit 41.3, white cell count 9.4, platelets 560. Sodium 136, potassium 4.1, chloride 102, CO2 26, BUN 40, creatinine 0.7, glucose 106. CT abdomen and pelvis as above. UA normal. ASSESSMENT: 1. Pelvic abscess, abdominal wall cellulitis recent bowel surgery for recurrent diverticulitis. No sepsis. 2. Diarrhea, rule out Clostridium difficile. 3. Leg swelling rule out recurrent deep venous thrombosis. 4. Hypertension, stable. 5. hx PAF sp ablation, px NSR 6. hx Chronic obstructive pulmonary disease, pulmo-status at baseline 7. Past tobacco abuse. PLAN: [facility] IV Ertapenem for now Transfer to [facility] once bed available stool cdif LE Dopplers Ro DVT DVT prophylaxis, Lovenox subQ. Full code. MTDD
[2018-01-09] MEDS ORDERED: LEVOTHYROXINE 100 MCG TAB PO SCH (06:00)
[2018-01-09] MEDS ORDERED: LACTOBACILLUS ACIDOPHILUS (FLORANEX) TAB PO SCH (09:00)
[2018-01-09] MEDS ORDERED: LISINOPRIL 20 MG TAB PO SCH (09:00)
[2018-01-09] MEDS ORDERED: ENOXAPARIN 40 MG/0.4 ML SYR SQ SCH (09:00)
[2018-01-09] MEDS ORDERED: TIOTROPIUM BROMIDE 5 PUFF/90 MCG INH INH SCH (09:00)
[2018-01-09] MEDS ORDERED: ZOLPIDEM TARTRATE 10 MG TAB PO SCH (21:00)
--- NOTE | 2018-01-10 10:47 | EDITING REQUIRED CODING QUERY ---
CODING QUERY To promote full compliance with coding requirements relating to patient care, provider participation is requested in all cases of bushing and broach operator uncertainty. Please assist us with the question(s) below: Coding Question(s): Patient admitted several days after complex diverticultis surgery for pelvic abscess/abd wall cellulitis and subsequently transferred to [facility] [place] further interventions. Please check below the phrase that describes the etiology of the abscess and abdominal wall cellulitis. Thanks for your help. Jacinto Corrales [facility] Physician's Response(s): __x__ The abdominal wall cellulitis /abscess is a complication of the prior GI surgery the abdominal wall cellulitis/abscess is not a complication of the prior GI surgery Cannot clinically correlate the etiology of the abdominal wall cellulitis /abscess Other/ Please document: Principal Diagnosis: "_that condition established after study, to be chiefly responsible for occasioning the admission of the patient to the hospital for care." Co-Existing Principal Diagnosis: "_when two or more diagnoses equally meet the criteria for principal diagnosis as determined by the circumstances of admission, diagnostic work up, and/or therapy provided, and the Alphabetic Index, Tabular List, or another coding guideline does not provide sequencing direction, any one of the diagnoses may be sequenced first." "When the physician has documented what appears to be a current diagnosis in the body of the record, but has not included the diagnosis in the final diagnostic statement, the physician should be asked whether the diagnosis should be added." (Source Coding [facility] 2 QTR90. p3-4)
== END 2018-01-09 03:35 | disposition short-term general hospital (02) | DRG 862 ==
LOC: C.EDB 16:39 → C.MSW 21:48 → ENRESERV 22:05
PROVIDERS: ADMIT Internal Medicine; ATTEND Internal Medicine
DX: T81.4XXA Infection following a procedure, initial encounter (principal); K65.1 Peritoneal abscess; L03.311 Cellulitis of abdominal wall; Z90.49 Acquired absence of other specified parts of digestive tract; J44.9 Chronic obstructive pulmonary disease, unspecified; K21.9 Gastro-esophageal reflux disease without esophagitis; Z86.718 Personal history of other venous thrombosis and embolism; E03.9 Hypothyroidism, unspecified; Z98.1 Arthrodesis status; M48.061 Spinal stenosis, lumbar region without neurogenic claudication; I10 Essential (primary) hypertension; I48.0 Paroxysmal atrial fibrillation; Z87.891 Personal history of nicotine dependence; Z88.2 Allergy status to sulfonamides; Z88.5 Allergy status to narcotic agent; Z88.0 Allergy status to penicillin; Y83.8 Other surgical procedures as the cause of abnormal reaction of the patient, or of later complication, without mention of misadventure at the time of the procedure; Z88.8 Allergy status to other drugs, medicaments and biological substances; Y92.019 Unspecified place in single-family (private) house as the place of occurrence of the external cause; Z98.0 Intestinal bypass and anastomosis status

== ENCOUNTER → 2018-06-21 | Outpatient (CLI) | payer OTHER ==
[~2018-06-21] MED LIST changes: -BNT20 PO; -CLC100X PO; -CPR500 PO; +DICY20TA10 PO; +DOCU100C31 PO; +ENOX40IN SQ; +FURO-85 PO; +LACT1TAB4 PO; -LCTX PO; +LEVO100T7 PO; +LISI-725 PO; +LORA-741 PO; -MRLP17 PO; -NF656 TD; +NYSS/ PO; -OMEG1CAP84 PO; +ONDA8TAB62 SL; -SYN100 PO; +TIOT1SPR INH
--- NOTE | 2018-06-21 15:26 | DIAGNOSTIC IMAGING REPORT ---
Brain MRI WITHOUT CONTRAST HISTORY: STROKE LIKE SYMPTOMS TECHNIQUE: Multiplanar multisequence MRI of the brain was performed without the use of contrast. COMPARISON STUDY: Brain MRI 06/02/2014. FINDINGS: There is no mass, hematoma, midline shift, or acute infarct. The paranasal sinuses are clear. The mastoid air cells are clear. The ventricles and sulci demonstrate mild age-related involutional changes. Scattered foci of T2 hyperintensity seen within the periventricular and subcortical white matter are nonspecific but suggestive of mild microvascular ischemic changes. The major vascular flow voids at the skull base are well-maintained. Cervical spinal fusion hardware is noted. IMPRESSION: No acute intracranial abnormality. Scattered foci of T2 hyperintensity seen within the periventricular and subcortical white matter are nonspecific but favor mild microvascular ischemic change. Electronically signed by: Jay Anthony M.D. 06/21/2018 3:24 PM Dictated Date/Time: 06/21/2018 3:15 PM
== END | disposition home or self-care (01) ==
LOC: C.MRI 14:27
PROVIDERS: ATTEND Family Medicine
DX: R29.90 Unspecified symptoms and signs involving the nervous system (principal); I48.0 Paroxysmal atrial fibrillation

== ENCOUNTER → 2018-07-04 | Outpatient (CLI) | payer OTHER ==
[~2018-07-04] MED LIST changes: +GADAVIST IV PRN
--- NOTE | 2018-07-04 18:52 | DIAGNOSTIC IMAGING REPORT ---
MRI OF THE BRAIN COMBO CLINICAL HISTORY: Headache. Right-sided facial numbness and developing. Slurred speech. COMPARISON STUDY: MRI of the brain dated 06/21/2018. TECHNIQUE: MRI of the brain was performed utilizing various T1 and T2-weighted sequences in the axial, sagittal, and coronal planes. Contrast-enhanced sequences were acquired following the administration of 8 cc of Gadavist. FINDINGS: Brain parenchyma: There are age-related involutional changes noting minimal subcortical and periventricular microangiopathic disease. There is no hemorrhage or mass effect. There is no restricted diffusion to suggest acute ischemia. No enhancing mass lesion is identified on the postcontrast images. Gill-white matter differentiation is preserved. No extra-axial fluid collection is seen. The cerebellar tonsils are normal in configuration. Ventricles, sulci, and cisterns: Prominent secondary to involutional change. Pituitary and sella: Unremarkable. Intracranial vasculature: Normal flow voids are maintained at the skull base. Orbits: The bony orbits are grossly intact. Orbital contents are normal in appearance. Sinuses and mastoids: Clear. Calvarium: Unremarkable. Cervical cord: Partially visualized cervical spinal cord is normal in morphology and signal intensity. IMPRESSION: No acute intracranial abnormality and no significant change from 06/21/2018. Electronically signed by: Frank Mendez M.D. 07/04/2018 6:51 PM Dictated Date/Time: 07/04/2018 6:47 PM
== END | disposition home or self-care (01) ==
LOC: C.MRI 18:01
PROVIDERS: ATTEND Psychiatry & Neurology Neurology
DX: R20.0 Anesthesia of skin (principal)

== ENCOUNTER 2019-09-02 15:59 | Inpatient (IN) ==
[2019-09-02 16:53] LABS: Basophils # (auto) 0.04 K/uL (0-0.2); Basophils % (auto) 0.6 %; Eosinophils % (auto) 1.4 %; Hematocrit (blood only) 45.1 % (37-47); Hemoglobin 16.1 g/dL (12.0-16.0); Immature Granulocytes # (auto) 0.01 K/uL (0.00-0.02); Immature Granulocytes % (auto) 0.1 %; Lymphocytes # (auto) 2.99 K/uL (1.2-3.4); Lymphocytes % (auto) 41.6 %; Mean Corpuscular Hemoglobin 31.9 pg (25-34); Mean Corpuscular Hgb Conc 35.7 g/dL (32-36); Mean Corpuscular Volume 89.3 fL (80-100); Mean Platelet Volume 8.8 fL (7.4-10.4); Monocytes # (auto) 0.74 K/uL (0.11-0.59); Monocytes % (auto) 10.3 %; Platelet Count 337 K/uL (130-400); RDW Coefficient of Variation 12.9 % (11.5-14.5); RDW Standard Deviation 41.8 fL (36.4-46.3); Red Blood Count 5.05 M/uL (4.2-5.4); White Blood Count 7.18 K/uL (4.8-10.8)
[2019-09-02 17:03] LABS: Partial Thromboplastin Time 26.8 Seconds (21.0-31.0); Prothrombin Time 10.6 Seconds (9.0-12.0)
--- NOTE | 2019-09-02 17:05 | XRay Report ---
XR chest 1V portable CLINICAL HISTORY: 64 years-old Female presenting with Sepsis. TECHNIQUE: Portable upright AP view of the chest was obtained. COMPARISON: 01/08/2018. FINDINGS: Atherosclerosis of the aortic arch. Cardiac silhouette mildly enlarged. Mild pulmonary vascular promi nence. No other focal opacity. No large effusion or pneumothorax. Anterior cervical fusion hardware n oted. Upper abdomen normal. IMPRESSION: 1. Mild cardiomegaly with mild volume overload. No advanced congestive change or tressa pulmonary kody ma. Electronically signed by: Laith Bermudez M.D. 09/02/2019 5:04 PM
[2019-09-02 17:11] LABS: BUN Creatinine Ratio 27.6 (10-20); Calcium 9.8 mg/dl (8.5-10.1); Creatinine Clr Calc Pharmacy 84.9 ml/min; Est GFR (African American) 105.6; Est GFR (Non-African American) 91.2; Potassium 3.8 mmol/L (3.5-5.1)
[2019-09-02 17:14] LABS: Albumin Globulin Ratio 1.2 (0.9-2); Bilirubin,Total 0.6 mg/dl (0.2-1); Globulin 3.3 gm/dl (2.5-4.0); Total Protein 7.3 gm/dl (6.4-8.2)
[2019-09-02] MEDS ORDERED: VANCOMYCIN HCL 2,250 MG in SODIUM CHLORIDE 0.9% 500 ML IV ONE (17:24)
[2019-09-02] MEDS ORDERED: VANCOMYCIN CONSULT ACTIVE PRN ×2 (17:24→20:50)
[2019-09-02] MEDS ORDERED: HYDROmorphone INJ 0.5 MG/0.5 ML SYR IV STA ×2 (17:35→20:59)
[2019-09-02] MEDS ORDERED: ONDANSETRON INJ 2 MG/ML 2 ML VIAL IV STA (17:35)
--- NOTE | 2019-09-02 19:01 | History & Physical Report ---
Date of Service September 02, 2019 Assessment & Plan (1) Osteomyelitis: (2) Discitis: Pt is 64 y/o F with PMH asthma, COPD, a-fib/a-flutter s/p pulm vein isolation, HTN, HLD, IBS, diverticulitis s/p colon resection, GERD, gastroparesis, hypothyroidism, PE in 2008, chronic back pain, h/o c-spine and l- spine surgery, presented to ER with c/o abnormal MRI. Pt reports chronic neck and mid and lower back pain which has progressively worsened over past 6 months. Also reports his been having bilateral arm and hand paresthesias, Arm pain, worse to right arm with right arm weakness, bilateral leg paresthesias and bilateral muscle cramping to thighs and groin with pain worse on left side. Past couple weeks with chills, fatigue. Denies measured fever. Follows with Dr Del Castillo "REPORT FROM MRI C-SPINE WO/W CONTRAST 1. Findings suspicious for discitis/osteomyelitis at T1-with prevertebral enhanc ement in this region in the upper thoracic region suspicious for infectious/inflammatory process. No focal fluid collection or abscess seen. 2. Degenerative spondylosis C3-4 with significant left-sided C3-4 foraminal stenosis. 3. Bilateral T1-2 foraminal narrowing greater on the left than the right due to uncovertebral joint spurring. " "REPORT FROM MRI L-SPINE WO/W CONTRAST: 1. Status post right sided effusion what appears to be S1-2. 2. Moderate L5-S1 central canal stenosis with moderate bilateral foraminal narrowing. 3. No lumbar spine disc herniation. 4. No abnormal enhancement seen within the lumbar region following IV contrast." -In ER patient afebrile, P: 79, RR: 18, initial BP 197/109 down to 151/95, 95% on room air, no leukocytosis, lactate 0.9 -Blood cultures pending -In ER given vancomycin, Dilaudid, Zofran -Vancomycin, cefepime -Continue baclofen as needed, hydrocodone. -Morphine as needed -Ortho consult -ID consult -CBC, BMP in a.m. (3) Asthma: No wheezing or shortness of breath currently -DuoNebs as needed (4) Atrial fibrillation and flutter: S/P ablation Current sinus rhythm (5) High blood pressure: BP initially elevated in ER, patient reports was very anxious and upset initially. BP down to 151/95 -Continue lisinopril (6) Hypothyroidism: -Continue levothyroxine (7) HLD (hyperlipidemia): -Continue Zetia DVT Prophylaxis -SCDs for now in case surgical procedure Follows with Dr Tejada for routine care Pt was seen and care coordinated with Dr Zuniga. See addendum History of Present Illness Chief Complaint: Abnormal MRI Primary Care Provider: Cj Rico MD Pt is 64 y/o F with PMH asthma, COPD, a-fib/a-flutter s/p pulm vein isolation, HTN, HLD, IBS, diverticulitis s/p colon resection, GERD, gastroparesis, hypothyroidism, PE in 2008, chronic back pain, h/o c-spine and l-spine surgery, presented to ER with c/o abnormal MRI. Pt reports chronic neck and mid and lower back pain which has progressively worsened over past 6 months. Also reports his been having bilateral arm and hand paresthesias, Arm pain, worse to right arm with right arm weakness, bilateral leg paresthesias and bilateral muscle cramping to thighs and groin with pain worse on left side. Takes hydrocodone prn and uses lidocaine patches prn. Has been following with Dr Del Castillo. Reports past few weeks has been having fatigue and chills. Denies any measured fever. Today had MRI C-spine, L-spine at 611 MRI with findings suspicious for discitis/osteomyelitis at T1 with no focal fluid collection or abscess seen. Patient reports 1 month ago with cough and shortness of breath and completed a course of steroids and reports some residual cough which she has been using her albuterol inhaler for. Chronic intermittent abdominal pain and denies any worsening. Denies chest pain. Reports intermittent headaches. Denies diaphoresis, N/V/D/C, dizziness, syncope, vision changes, orthopnea, palpitations, sore throat, choking, otalgia, rhinorrhea, extremity edema, rashes, urinary symptoms. Allergies Allergy/AdvReac Type Severity Reaction Status Date / Time losartan Allergy Severe SWELLING Verified 09/02/19 17:34 OF FACE, LIPS & TONGUE Penicillins Allergy Severe SWELLING Verified 09/02/19 17:34 OF FACE, LIPS & TONGUE tramadol Allergy Severe Hallucinati Verified 09/02/19 17:34 ons fentanyl Allergy Intermediate itching Verified 09/02/19 17:34 Sulfa (Sulfonamide Allergy Intermediate URNIARY Verified 09/02/19 17:34 Antibiotics) FREQUENCY sulfamethoxazole Allergy Intermediate URNIARY Verified 09/02/19 17:34 FREQUENCY trimethoprim Allergy Mild URINARY Verified 09/02/19 17:34 FREQUENCY metronidazole AdvReac Mild STOMACH Verified 09/02/19 17:34 PAIN Home Medications Home Medications Medication Instructions Recorded Confirmed Type acetaminophen [Tylenol Extra 1,000 mg PO Q6H PRN 08/22/18 09/02/19 History Strength] acyclovir 400 mg PO TID PRN 08/22/18 09/02/19 History albuterol sulfate [Ventolin HFA] 2 puff INHALATION Q4H PRN 08/22/18 09/02/19 History aspirin [Aspir-81] 81 mg PO QAM 08/22/18 09/02/19 History baclofen 10 mg PO TID PRN 08/22/18 09/02/19 History cholecalciferol (vitamin D3) 1,000 units PO QAM 08/22/18 09/02/19 History [Vitamin D3] furosemide [Lasix] 20 mg PO DAILY PRN 08/22/18 09/02/19 History levothyroxine 100 mcg PO QAM 08/22/18 09/02/19 History lisinopril 20 mg PO QAM 08/22/18 09/02/19 History zolpidem 10 mg PO HS PRN 08/22/18 09/02/19 History docusate sodium [Colace] 100 mg PO BID PRN 09/09/18 09/02/19 History ezetimibe 10 mg PO QAM 02/18/19 09/02/19 History ranitidine HCl 150 mg PO BID PRN 02/18/19 09/02/19 History Lactobacillus rhamnosus GG 1 cap PO DAILY 09/02/19 09/02/19 History [Culturelle] fluticasone propionate 2 spray INTRANASAL DAILY 09/02/19 09/02/19 History hydrocodone-acetaminophen 1 tab PO Q6H PRN 09/02/19 09/02/19 History ipratropium-albuterol 3 ml INHALATION UD PRN 09/02/19 09/02/19 History lidocaine 1 patch TRANSDERMAL DAILY PRN 09/02/19 09/02/19 History multivitamin 1 tab PO QAM 09/02/19 09/02/19 History Past Med/Surg History Medical History HLD (hyperlipidemia) (Chronic) GERD (gastroesophageal reflux disease) (Chronic) Hypothyroidism (Chronic) Atrial fibrillation and flutter (Resolved) S/P ablation Urinary problem URINARY LEAKAGE Pulmonary embolism (Resolved) Pneumonia Bronchitis Asthma (Chronic) High blood pressure (Chronic) Irritable colon (Chronic Unknown) Lumbar radiculopathy (Acute) Sigmoid diverticulitis (Resolved) Abdominal hernia Atrial fibrillation Chronic back pain Chronic obstructive pulmonary disease GERD (gastroesophageal reflux disease) Hyperlipidemia Hypothyroidism Migraine Osteoarthritis Peripheral neuropathy Sleep apnea NO MACHINE Surgical History S/P colon resection (Chronic) Hx of fusion of cervical spine (Chronic) S/P lumbar fusion (Chronic) History of adenoidectomy History of anesthesia reaction EXTREMELY SLOW TO WAKE UP (COLON RESECTION) History of appendectomy History of bowel resection History of bunionectomy RT FOOT History of carpal tunnel release RT History of colonoscopy History of dilatation and curettage History of esophagogastroduodenoscopy (EGD) History of tonsillectomy History of tooth extraction History of total abdominal hysterectomy and bilateral salpingo-oophorectomy S/P ablation of atrial fibrillation 5 YEARS AGO Family History Mother Family history of esophageal cancer Other Cancer Gallbladder disease Heart disease Hypertension Lung disease Social History Preferred Language: Latvian Communication Ability: Effective Personal Secretary Required: No Beliefs That Will Affect Care: None Current Living Situation: Spouse Current Living Situation Comment: Feels Safe at Home: Yes Smoking Status: Never smoker Cigarettes Per Day: QUIT 11 YEARS AGO ; Second Hand Exposure: No ; Hx Alcohol Use: Yes Alcohol type: wine Alcohol Intake Frequency: Rarely Hx Substance Use: No Review of Systems Review of Systems: All systems reviewed & are unremarkable except as noted in HPI & below Physical Exam Physical Exam: General: no acute distress, obese Head: normocephalic, atraumatic Eyes: PERRL, EOM's intact, conjunctiva non-injected, anicteric ENT: normal inspection external ears, nose, mucous membranes moist Neck: supple, trachea midline, +tenderness to palpation posterior lower cervical spinous processes Lungs: clear, no respiratory distress, no wheezing/rhonchi/rales CV: RRR, no murmur, no JVD, no pretibial edema Abd: normal BS, soft, non-tender Back: no rash or discolorations, +tenderness to palpation mid thoracic and low lumber spinous processes; Limited bilateral leg raising Ext: no cyanosis, no calf tenderness; Right arm strength 4/5, left arm strength 5/5, bilateral lower leg strength 4/5, distal pulses palpable, brisk capillary refill, sensation to light touch intact Neuro: A&O x 3, no focal deficits noted, normal affect Skin: warm, dry Results & Data Vital Signs (Past 12 Hours) Vital Signs Temp Pulse Resp BP Pulse Ox 09/02/19 18:33 96 09/02/19 18:30 97 09/02/19 18:15 95 09/02/19 18:00 94 09/02/19 17:47 97 09/02/19 17:45 151/95 H 96 09/02/19 16:04 37.1 C 79 18 197/109 H 95 Laboratory Results Short CBC 09/02/19 Range/Units 16:32 WBC 7.18 (4.8-10.8) K/uL Hgb 16.1 H (12.0-16.0) g/dL Hct 45.1 (37-47) % Plt Count 337 (130-400) K/uL BMP 09/02/19 16:32 Sodium 138 Potassium 3.8 Chloride 104 Carbon Dioxide 24 BUN 19 H Creatinine 0.68 Glucose 101 H Calcium 9.8 Liver Function 09/02/19 Range/Units 16:32 Total Bilirubin 0.6 (0.2-1) mg/dl AST 18 (15-37) U/L ALT 32 (12-78) U/L Alkaline Phosphatase 88 (45-117) U/L Albumin 4.0 (3.4-5.0) gm/dl Diagnostic Findings CXR: IMPRESSION: 1. Mild cardiomegaly with mild volume overload. No advanced congestive change or tressa pulmonary edema. REPORT FROM MRI C-SPINE WO/W CONTRAST "Impression 1. Findings suspicious for discitis/osteomyelitis at T1-with prevertebral enhancement in this region in the upper thoracic region suspicious for infectious/inflammatory process. No focal fluid collection or abscess seen. 2. Degenerative spondylosis C3-4 with significant left-sided C3-4 foraminal stenosis. 3. Bilateral T1-2 foraminal narrowing greater on the left than the right due to uncovertebral joint spurring. " REPORT FROM MRI L-SPINE WO/W CONTRAST: "Impression: 1. Status post right sided effusion what appears to be S1-2. 2. Moderate L5-S1 central canal stenosis with moderate bilateral foraminal narrowing. 3. No lumbar spine disc herniation. 4. No abnormal enhancement seen within the lumbar region following IV contrast." Supervising Physician Co-Signing Physician Notes I have seen and examined the patient and have discussed the case with the provider above. I agree with the assessment and plan as stated with the following exceptions. 64 yo female with chronic severe back pain, admitted for discitis/osteomyelitis in T1 area. Neck pain has been x 1 month with bilateral arm numbness, and she has had flares of dropping objects. She reports fevers and significant fatigue over the last two weeks. Also has significant chronic lower back pain, better with bending forward and MRI results consistent with spinal stenosis. She has been more dependent on narcotics for pain control. Physical exam reveals an oriented patient who is in distress with minimal movement 2/2 pain. She is mentating normally, and is holding her hot teacup without issue. Cardiac exam reveals S1 and S2 heard without murmurs, gallops or rubs. Lungs are clear to auscultation throughout. She has severe pain to palpation of neck and upper back musculature in the paraspinal and trapezius region. She has spinous process tenderness to palpation in the upper thoracic area. Bilateral arm strength including handgrip and finger spread was intact and 5/5 throughout. She reports numbness in upper extremities that is equal to touch. Leg strength is intact and 5/5 throughout. No sensation deficits to lower extremities is present. Agree with plan above to cont with empiric broad spectrum antibiotics pending blood culture results and clinical improvement. Appreciate Ortho spine and Infectious Disease recommendations. DO Efrain (1) Discitis Spinal region: lumbar Qualified Code(s): M46.46 - Discitis, unspecified, lumbar region (2) Osteomyelitis Osteomyelitis location: other site Osteomyelitis type: unspecified type Qualified Code(s): M86.9 - Osteomyelitis, unspecified
[2019-09-02] MEDS ORDERED: MoRPHine SULFATE 4 MG/ML 1 ML CARP\\VIAL IV PRN (20:31)
[2019-09-02] MEDS ORDERED: BACLOFEN 10 MG TAB PO PRN (20:31)
[2019-09-02] MEDS ORDERED: ALBUT/IPRATROP 3MG/0.5MG NEB 3 ML VIAL NEB PRN (20:31)
[2019-09-02] MEDS ORDERED: DOCUSATE SODIUM 100 MG CAP PO PRN (20:31)
[2019-09-02] MEDS ORDERED: CONSULT PHARMACY STA (20:31)
[2019-09-02] MEDS ORDERED: ONDANSETRON INJ 2 MG/ML 2 ML VIAL IV PRN (20:31)
[2019-09-02] MEDS ORDERED: ACETAMINOPHEN 325 MG TAB PO PRN (20:31)
[2019-09-02] MEDS ORDERED: LIDOCAINE 5% 1 PATCH TD PRN (20:31)
[2019-09-02] MEDS ORDERED: HYDROmorphone INJ 0.5 MG/0.5 ML SYR ONE (21:03)
[2019-09-02] MEDS: HYDROCODONE/ACETAMINOPHEN 10/325 TAB PO PRN (21:07)
[2019-09-02] MEDS ORDERED: TROLAMINE SALICYLATE 10% CRM 255 APPLN/85 GM TUBE EXT PRN (21:09)
[2019-09-02] MEDS: CEFEPIME 2,000 MG in SYRINGE 7.5 ML IV SCH (21:21)
--- NOTE | 2019-09-02 23:00 | Emergency Department Note ---
Entered by Sonam Guzman acting as a scribe for Silverio Choudhary DO History of Present Illness General Chief complaint: Referred by Doctor Stated complaint: BACK AND NECK PAIN Time Seen by Provider: 09/02/19 16:11 Source: patient History of Present Illness Provider complaint: back pain Onset (ago): month(s) 6 Location: back Radiation: neck Severity: similar to prior episodes Pain Consistency: + other (worsening) Maximum Pain Intensity: 10 Associated symptoms: + weakness and + other (+fatigue, +pain in arms bilater ally); no cough and no fever/chills The patient is a 64 year old female who presents to the Emergency Room with complaints of worsening back pain for the past 6 months. The patient reports that she has a history of degenerative disc disease. She states that she had a MRI of her lumbar and neck where they referred her to the ED because of the risk of bone infection. She notes that she has had neck and lower back pain for the past 20 years. She mentions that she had an unsuccessful back surgery in 1999 and then a neck surgery in 2001, both by Dr. Houston. She state states that her pain has worsened in the past 6 months. She notes that she has had weakness and worsening pain in her arms bilaterally, fatigue, and difficulty with her third mate and lifting her arms. She denies any fever, chills, or cough. She notes that she developed a runny nose over the weekend. She mentions that she recently had a colon removal surgery because of her chronic diverticulitis. Home Medications Home Medications Medication Instructions Recorded Confirmed Type acetaminophen [Tylenol Extra 1,000 mg PO Q6H PRN 08/22/18 09/02/19 History Strength] acyclovir 400 mg PO TID PRN 08/22/18 09/02/19 History albuterol sulfate [Ventolin HFA] 2 puff INHALATION Q4H PRN 08/22/18 09/02/19 History aspirin [Aspir-81] 81 mg PO QAM 08/22/18 09/02/19 History baclofen 10 mg PO TID PRN 08/22/18 09/02/19 History cholecalciferol (vitamin D3) 1,000 units PO QAM 08/22/18 09/02/19 History [Vitamin D3] furosemide [Lasix] 20 mg PO DAILY PRN 08/22/18 09/02/19 History levothyroxine 100 mcg PO QAM 08/22/18 09/02/19 History lisinopril 20 mg PO QAM 08/22/18 09/02/19 History zolpidem 10 mg PO HS PRN 08/22/18 09/02/19 History docusate sodium [Colace] 100 mg PO BID PRN 09/09/18 09/02/19 History ezetimibe 10 mg PO QAM 02/18/19 09/02/19 History ranitidine HCl 150 mg PO BID PRN 02/18/19 09/02/19 History Lactobacillus rhamnosus GG 1 cap PO DAILY 09/02/19 09/02/19 History [Culturelle] fluticasone propionate 2 spray INTRANASAL DAILY 09/02/19 09/02/19 History hydrocodone-acetaminophen 1 tab PO Q6H PRN 09/02/19 09/02/19 History ipratropium-albuterol 3 ml INHALATION UD PRN 09/02/19 09/02/19 History lidocaine 1 patch TRANSDERMAL DAILY PRN 09/02/19 09/02/19 History multivitamin 1 tab PO QAM 09/02/19 09/02/19 History Allergies Allergy/AdvReac Type Severity Reaction Status Date / Time losartan Allergy Severe SWELLING Verified 09/02/19 17:34 OF FACE, LIPS & TONGUE Penicillins Allergy Severe SWELLING Verified 09/02/19 17:34 OF FACE, LIPS & TONGUE tramadol Allergy Severe Hallucinati Verified 09/02/19 17:34 ons fentanyl Allergy Intermediate itching Verified 09/02/19 17:34 Sulfa (Sulfonamide Allergy Intermediate URNIARY Verified 09/02/19 17:34 Antibiotics) FREQUENCY sulfamethoxazole Allergy Intermediate URNIARY Verified 09/02/19 17:34 FREQUENCY trimethoprim Allergy Mild URINARY Verified 09/02/19 17:34 FREQUENCY metronidazole AdvReac Mild STOMACH Verified 09/02/19 17:34 PAIN Past Med/Surg History Medical History HLD (hyperlipidemia) (Chronic) GERD (gastroesophageal reflux disease) (Chronic) Hypothyroidism (Chronic) Atrial fibrillation and flutter (Resolved) S/P ablation Urinary problem URINARY LEAKAGE Pulmonary embolism (Resolved) Pneumonia Bronchitis Asthma (Chronic) High blood pressure (Chronic) Irritable colon (Chronic Unknown) Lumbar radiculopathy (Acute) Sigmoid diverticulitis (Resolved) Abdominal hernia Atrial fibrillation Chronic back pain Chronic obstructive pulmonary disease GERD (gastroesophageal reflux disease) Hyperlipidemia Hypothyroidism Migraine Osteoarthritis Peripheral neuropathy Sleep apnea NO MACHINE Surgical History S/P colon resection (Chronic) Hx of fusion of cervical spine (Chronic) S/P lumbar fusion (Chronic) History of adenoidectomy History of anesthesia reaction EXTREMELY SLOW TO WAKE UP (COLON RESECTION) History of appendectomy History of bowel resection History of bunionectomy RT FOOT History of carpal tunnel release RT History of colonoscopy History of dilatation and curettage History of esophagogastroduodenoscopy (EGD) History of tonsillectomy History of tooth extraction History of total abdominal hysterectomy and bilateral salpingo-oophorectomy S/P ablation of atrial fibrillation 5 YEARS AGO Family History Mother Family history of esophageal cancer Other Cancer Gallbladder disease Heart disease Hypertension Lung disease Social History Preferred Language: Congolese Communication Ability: Effective Apparel Fashion Designer Required: No Beliefs That Will Affect Care: None Current Living Situation: Alone Current Living Situation Comment: Other Information That Helps Us Care for You: No Feels Safe at Home: Yes Safety Concerns: Feels Safe At This Time Smoking Status: Former smoker Tobacco Type: cigarettes ; Cigarettes Per Day: QUIT 11 YEARS AGO ; Do You Dip or Chew Tobacco: No ; Second Hand Exposure: No ; Tobacco Cessation Education Requested by Patient: No Hx Alcohol Use: Yes Alcohol type: wine Alcohol Intake Frequency: Rarely Hx Substance Use: No Review of Systems See HPI for pertinent positives & negatives. and A total of 10 systems reviewed and were otherwise negative Physical Exam Vital Signs Vital Signs - 24 hr 09/02/19 16:04 09/02/19 17:45 09/02/19 17:47 Temperature 37.1 C Temperature Source Oral Sepsis Recent Fever Within 48 Hours No Sepsis New/Unexplained Change in Mental Status No Sepsis Action Taken by Nursing No Action Required Pulse Rate 79 Pulse Rate from SpO2 Sensor 81 79 Respiratory Rate 18 Blood Pressure 197/109 H 151/95 H Blood Pressure Mean 138 113 Pulse Oximetry 95 96 97 Oxygen Delivery Method 09/02/19 18:00 09/02/19 18:15 09/02/19 18:30 Temperature Temperature Source Sepsis Recent Fever Within 48 Hours Sepsis New/Unexplained Change in Mental Status Sepsis Action Taken by Nursing Pulse Rate Pulse Rate from SpO2 Sensor 76 72 75 Respiratory Rate Blood Pressure Blood Pressure Mean Pulse Oximetry 94 95 97 Oxygen Delivery Method 09/02/19 18:33 Temperature Temperature Source Sepsis Recent Fever Within 48 Hours Sepsis New/Unexplained Change in Mental Status Sepsis Action Taken by Nursing Pulse Rate Pulse Rate from SpO2 Sensor Respiratory Rate Blood Pressure Blood Pressure Mean Pulse Oximetry 96 Oxygen Delivery Method Room Air GENERAL: sitting up at the edge of the bed, wearing gown, disheveled, tearful EYE EXAM: normal conjunctiva, PERRL and EOM's grossly intact OROPHARYNX: no exudate, no erythema, lips, buccal mucosa, and tongue normal and mucous membranes are moist NECK: supple, no nuchal rigidity, no adenopathy, non-tender LUNGS: Clear to auscultation. Normal chest wall mechanics HEART: no murmurs, S1 normal and S2 normal ABDOMEN: obese, old midline incision. abdomen soft, normo-active bowel sounds, no masses, no rebound or guarding. BACK: Old lower lumbar incision, tenderness in bilateral perispinal region, back is symmetrical on inspection and there is no deformity, no midline tenderness, no CVA tenderness. SKIN: no rashes and no bruising UPPER EXTREMITIES: upper extremities are grossly normal. LOWER EXTREMITIES: No pitting edema. NEURO EXAM: Normal sensorium, cranial nerves II-XII grossly intact, normal speech, no gross weakness of arms, no gross weakness of legs. Course ED COURSE: Vital signs were reviewed and showed hypertensive situational. The patients medical record was reviewed The above diagnostic studies were performed and reviewed. ED treatments and interventions as stated above. 1615: The patient was evaluated in room B8. A complete history and physical e xamination was performed. 1720: I discussed the patient's case with Dr. Michi Rodriguez, he recommends the patient be further evaluated. 1724: I discussed the patient's case with Lina Castro, Dr. Mehran Castro Hospitalist will accept the patient for further evaluat ion. 1735: Upon reevaluation, the patient is requesting pain medication. I discussed my findings with the patient and she understands and agrees with the treatment plan. Based on the patients age, coexisting illnesses, exam and lab findings the decision to treat as an inpatient was made. The patient remained stable while under my care. The patient will be evaluated for further management. Administered Medications Hydrocodone Bitart/Acetaminophen ([place] 10/325) 1 tab PO Q6H PRN PRN Reason: Pain Stop: 09/16/19 20:30 Last Admin: 09/02/19 21:07 Dose: 1 tab Documented by: [id number] Cefepime HCl 2,000 mg/ Syringe 20 mls @ 5.5 mls/min IV BID CALE; Protocol Stop: 10/14/19 20:59 Last Admin: 09/02/19 21:21 Dose: 5.5 mls/min Documented by: [id number] Discontinued Medications Hydromorphone HCl (Dilaudid) 0.5 mg IV NOW STA Stop: 09/02/19 17:36 Last Admin: 09/02/19 17:45 Dose: 0.5 mg Documented by: [id number] Hydromorphone HCl (Dilaudid) 0.5 mg IV NOW STA Stop: 09/02/19 21:00 Last Admin: 09/02/19 21:17 Dose: Not Given Documented by: [id number] Hydromorphone HCl (Dilaudid) Confirm Administered Dose 0.5 mg .ROUTE .STK-MED ONE Stop: 09/02/19 21:04 Last Admin: 09/02/19 21:07 Dose: 0.5 mg Documented by: [id number] Vancomycin HCl 2,250 mg/ (Sodium Chloride) 545 mls @ 200 mls/hr IV NOW ONE Stop: 09/02/19 20:07 Last Infusion: 09/02/19 21:18 Dose: 0 mls/hr Documented by: [id number] Admin: 09/02/19 17:48 Dose: 200 mls/hr Documented by: [id number] Ondansetron HCl (Zofran) 4 mg IV NOW STA Stop: 09/02/19 17:36 Last Admin: 09/02/19 17:45 Dose: 4 mg Documented by: [id number] Medical Decision Making Differential Diagnosis Differential diagnoses includes but is not limited to lumbar radiculopathy, muscle strain, fracture, cauda equina, mass, and disc herniation. Medical Records Attestation: I reviewed the patient's medical records. Home Medications Current Medication List: was personally reviewed by me Laboratory Data Attestation: I reviewed the patient's lab results. Result diagrams: 09/02/19 16:32 09/02/19 16:32 Lab Results 09/02/19 09/02/19 09/02/19 Range/Units 16:32 16:32 16:32 WBC 7.18 (4.8-10.8) K/uL RBC 5.05 (4.2-5.4) M/uL Hgb 16.1 H (12.0-16.0) g/dL Hct 45.1 (37-47) % MCV 89.3 (80-100) fL MCH 31.9 (25-34) pg MCHC 35.7 (32-36) g/dL RDW Std Deviation 41.8 (36.4-46.3) fL RDW Coeff of Viky 12.9 (11.5-14.5) % Plt Count 337 (130-400) K/uL MPV 8.8 (7.4-10.4) fL Immature Gran % (Auto) 0.1 % Neut % (Auto) 46.0 % Lymph % (Auto) 41.6 % Sevier % (Auto) 10.3 % Eos % (Auto) 1.4 % Baso % (Auto) 0.6 % Immature Gran # (Auto) 0.01 (0.00-0.02) K/uL Neut # (Auto) 3.30 (1.4-6.5) K/uL Lymph # (Auto) 2.99 (1.2-3.4) K/uL Sevier # (Auto) 0.74 H (0.11-0.59) K/uL Eos # (Auto) 0.10 (0-0.5) K/uL Baso # (Auto) 0.04 (0-0.2) K/uL PT 10.6 (9.0-12.0) Seconds INR 1.0 (0.9-1.1) APTT 26.8 (21.0-31.0) Seconds PTT Ratio 1.0 Sodium 138 (136-145) mmol/L Potassium 3.8 (3.5-5.1) mmol/L Chloride 104 (98-107) mmol/L Carbon Dioxide 24 (21-32) mmol/L Anion Gap 10.0 (3-11) BUN 19 H (7-18) mg/dl Creatinine 0.68 (0.6-1.2) mg/dl Est Cr Clr Drug Dosing 84.9 ml/min Est GFR ( Amer) 105.6 Est GFR (Non-Af Amer) 91.2 BUN/Creatinine Ratio 27.6 H (10-20) Glucose 101 H (70-99) mg/dl Lactate (0.4-2.0) mmol/L Calcium 9.8 (8.5-10.1) mg/dl Total Bilirubin 0.6 (0.2-1) mg/dl AST 18 (15-37) U/L ALT 32 (12-78) U/L Alkaline Phosphatase 88 (45-117) U/L Total Protein 7.3 (6.4-8.2) gm/dl Albumin 4.0 (3.4-5.0) gm/dl Globulin 3.3 (2.5-4.0) gm/dl Albumin/Globulin Ratio 1.2 (0.9-2) 09/02/19 Range/Units 16:32 WBC (4.8-10.8) K/uL RBC (4.2-5.4) M/uL Hgb (12.0-16.0) g/dL Hct (37-47) % MCV (80-100) fL MCH (25-34) pg MCHC (32-36) g/dL RDW Std Deviation (36.4-46.3) fL RDW Coeff of Viky (11.5-14.5) % Plt Count (130-400) K/uL MPV (7.4-10.4) fL Immature Gran % (Auto) % Neut % (Auto) % Lymph % (Auto) % Sevier % (Auto) % Eos % (Auto) % Baso % (Auto) % Immature Gran # (Auto) (0.00-0.02) K/uL Neut # (Auto) (1.4-6.5) K/uL Lymph # (Auto) (1.2-3.4) K/uL Sevier # (Auto) (0.11-0.59) K/uL Eos # (Auto) (0-0.5) K/uL Baso # (Auto) (0-0.2) K/uL PT (9.0-12.0) Seconds INR (0.9-1.1) APTT (21.0-31.0) Seconds PTT Ratio Sodium (136-145) mmol/L Potassium (3.5-5.1) mmol/L Chloride (98-107) mmol/L Carbon Dioxide (21-32) mmol/L Anion Gap (3-11) BUN (7-18) mg/dl Creatinine (0.6-1.2) mg/dl Est Cr Clr Drug Dosing ml/min Est GFR ( Amer) Est GFR (Non-Af Amer) BUN/Creatinine Ratio (10-20) Glucose (70-99) mg/dl Lactate 0.9 (0.4-2.0) mmol/L Calcium (8.5-10.1) mg/dl Total Bilirubin (0.2-1) mg/dl AST (15-37) U/L ALT (12-78) U/L Alkaline Phosphatase (45-117) U/L Total Protein (6.4-8.2) gm/dl Albumin (3.4-5.0) gm/dl Globulin (2.5-4.0) gm/dl Albumin/Globulin Ratio (0.9-2) Imaging Data Radiologist's Impression: Radiology results as stated below per my review and the radiologist's interpretation: XR chest 1V portable CLINICAL HISTORY: 64 years-old Female presenting with Sepsis. TECHNIQUE: Portable upright AP view of the chest was obtained. COMPARISON: 01/08/2018. FINDINGS: Atherosclerosis of the aortic arch. Cardiac silhouette mildly enlarged. Mild pulmonary vascular prominence. No other focal opacity. No large effusion or pneu mothorax. Anterior cervical fusion hardware noted. Upper abdomen normal. IMPRESSION: 1. Mild cardiomegaly with mild volume overload. No advanced congestive change or tressa pulmonary edema. Electronically signed by: Laith Bermudez M.D. 09/02/2019 5:04 PM Blood Pressure Blood Pressure Findings: Elevated blood pressure Blood Pressure Disposition: further management by hospitalist [facility] Narrative Patient is a 64-year-old female who has been having worsening back pain for the past 6 months. She notes worsening bilateral hand numbness. No fevers. Recently had an MRI today which showed T1-T2 osteomyelitis. IV was established blood work was obtained. Labs show no significant leukocytosis or anemia. INR is unremarkable. BMP along with LFTs bilirubin was unremarkable. Patient was given IV fluids, IV Dilaudid and IV vancomycin. MRI report was reviewed. Discussed with orthopedic spine and the hospitalist. Patient was updated bedside. Patient was admitted for osteomyelitis. Impression & Plan Osteomyelitis, Discitis Discharge Plan Visit Data *Final* Discharge Date/Time: 09/02/19 20:01 Chief Complaint: Referred by Doctor Stated Complaint: BACK AND NECK PAIN ED Provider: Silverio Choudhary Discharge Problem: Osteomyelitis, Discitis Patient Disposition: Admitted As Inpatient Discharge Instructions Interventions: ED Discharge Assessment Last Done: 09/02/19 20:01 Discharge Problem: Osteomyelitis Qualifiers: Osteomyelitis type: unspecified type Osteomyelitis location: other site Qualified Code(s): M86.9 - Osteomyelitis, unspecified Discitis Qualifiers: Spinal region: lumbar Qualified Code(s): M46.46 - Discitis, unspecified, lumbar region The scribe's documentation has been prepared under my direction and personally reviewed by me in its entirety. I confirm that the note above accurately reflects all work, treatment, procedures, and medical decision making performed by me.
[2019-09-03] MEDS: ZOLPIDEM TARTRATE 10 MG TAB PO PRN (00:45)
[2019-09-03] MEDS: VANCOMYCIN HCL 1,250 MG in SODIUM CHLORIDE 0.9% 250 ML IV SCH ×3 (04:52→23:32)
[2019-09-03] MEDS: HYDROCODONE/ACETAMINOPHEN 10/325 TAB PO PRN ×2 (04:54→16:01)
[2019-09-03 05:36] LABS: Hematocrit (blood only) 41.3 % (37-47); Hemoglobin 14.1 g/dL (12.0-16.0); Mean Corpuscular Hgb Conc 34.1 g/dL (32-36); Mean Corpuscular Volume 90.8 fL (80-100); Mean Platelet Volume 8.9 fL (7.4-10.4); Platelet Count 272 K/uL (130-400); RDW Coefficient of Variation 12.9 % (11.5-14.5); RDW Standard Deviation 42.8 fL (36.4-46.3); Red Blood Count 4.55 M/uL (4.2-5.4); White Blood Count 5.97 K/uL (4.8-10.8)
[2019-09-03 06:06] LABS: BUN Creatinine Ratio 23.2 (10-20); Calcium 8.7 mg/dl (8.5-10.1); Creatinine Clr Calc Pharmacy 94.5 ml/min; Est GFR (African American) 110.1; Potassium 3.7 mmol/L (3.5-5.1)
[2019-09-03] MEDS: LEVOTHYROXINE SODIUM 100 MCG TABLET PO SCH (06:29)
[2019-09-03] MEDS ORDERED: HYDROmorphone INJ 0.5 MG/0.5 ML SYR IV PRN (08:06)
[2019-09-03] MEDS: FLUTICASONE PROPIONATE NA SPR 16 GM BTL NAE SCH (08:19)
[2019-09-03] MEDS: lisinopriL 20 MG TAB PO SCH (08:20)
[2019-09-03] MEDS: CHOLECALCIFEROL 1,000 UNITS TAB PO SCH (08:20)
[2019-09-03] MEDS: EZETIMIBE 10 MG TABLET PO SCH (08:20)
[2019-09-03] MEDS: CEFEPIME 2,000 MG in SYRINGE 7.5 ML IV SCH ×2 (08:26→22:12)
--- NOTE | 2019-09-03 08:59 | Pharmacy Report ---
Pharmacy Abx Initial Consult - Date of Service September 03, 2019 - Pharmacy Dosing Scope Date of Consult: 09/02/19 Consultation requested by: Nini Jim Pharmacy is consulted to initiate Vancomycin IV dosing therapy, order appropriate labs and adjust drug dose/frequency. - Subjective The patient is a 64 year old F admitted on 09/02/19 19:00. - Objective Height: 5 ft 2 in Weight: 87.1 kg Vital Signs (Past 12hrs): Vital Signs Temp Pulse Resp BP Pulse Ox 09/03/19 07:31 36.7 C 70 18 118/75 94 09/02/19 23:57 36.7 C 71 16 148/85 H 96 Lab Results (24hrs): Laboratory Tests (24 Hours) 09/03/19 09/03/19 09/02/19 05:14 05:14 16:32 WBC 5.97 Neut # (Auto) Creatinine 0.60 0.68 Est Cr Clr Drug Dosing 94.5 84.9 09/02/19 16:32 WBC 7.18 Neut # (Auto) 3.30 Creatinine Est Cr Clr Drug Dosing Micro Results: 09/02/19 16:32 Aerobic Blood Culture - Pending Blood Anaerobic Blood Culture - Pending 09/02/19 16:32 Aerobic Blood Culture - Pending Blood Anaerobic Blood Culture - Pending - Assessment & Plan Assessment 64 year old F initiated on IV vancomycin for discitis/osteomyelitis BMI > 35 therefore at risk for vancomycin accumulation once steady state is reached. Will have to adjust dose on a lower mg/kg basis Renal function stable/at baseline Plan Vancomycin for treatment of discitis/osteomyelitis Vancomycin IV * Estimated PK Parameters: Vd 0.55 L/kg, Giuseppe 0.065 hr-1, t1/2 10 hr * Loading dose: 2,250 mg (25 mg/kg) * Maintenance dose: 1,250 mg IV (14 mg/kg) every 10 hours * this will likely need to be reduced to 1,000mg IV Q12hrs once steady state is reached. Important to achieve and maintain therapeutic through levels for osteo - necessary to start dosing aggressively and then back off. * Goal trough level for discitis/osteomyelitis : 15 to 20 mcg/mL * Trough level ordered for 09/04/19 @ 0930 * Dose will need decreased and interval extended if this initial trough level is > 14 * A less than traditional dose and/or extended dosing interval have been selected due to likelihood of drug accumulation in obese patient. Pharmacy will continue to follow and will adjust dose/frequency as necessary. Thank you.
[2019-09-03] MEDS ORDERED: NON-FORMULARY MEDICATION (Lactobacillus Rhamnosus Gg [Culturelle] 1 CAP) PO SCH (09:00)
--- NOTE | 2019-09-03 10:25 | Infectious Disease Consult ---
Date of Consultation September 03, 2019 Assessment & Plan (1) Discitis: continue abx, follow cultures. check esr, crp, procalcitonin as well. ortho eval pending, will follow. History of Present Illness Attending Physician: Nohelia Lang MD pt admitted after outpatient MRI revealed concern for discitis at T1. She also had effusion noted at S1/S2. orhto eval pending. states she had neck and back surgery in [place] in early , neck improved but has had chronic back pain for several years, unchanged. denies new surgeries/procedures. no f/c. She denies any trauma, now having increased right shoulder pain and decreased ROM due to pain. no abd pain, no n/v/d, no gu symptoms. getting narcotics here with relief but not 100% improved. ambulating in room on my exam. Blood cultures pending, started on vanco and cefepime, remains on this. tolerating well. CXR negative. wbc 5.9 Allergies Allergy/AdvReac Type Severity Reaction Status Date / Time losartan Allergy Severe SWELLING Verified 09/02/19 17:34 OF FACE, LIPS & TONGUE Penicillins Allergy Severe SWELLING Verified 09/02/19 17:34 OF FACE, LIPS & TONGUE fentanyl Allergy Intermediate itching Verified 09/02/19 17:34 tramadol AdvReac Severe Hallucinati Verified 09/03/19 08:10 ons Sulfa (Sulfonamide AdvReac Intermediate URNIARY Verified 09/03/19 08:10 Antibiotics) FREQUENCY sulfamethoxazole AdvReac Intermediate URNIARY Verified 09/03/19 08:10 FREQUENCY metronidazole AdvReac Mild STOMACH Verified 09/02/19 17:34 PAIN trimethoprim AdvReac Mild URINARY Verified 09/03/19 08:10 FREQUENCY Home Medications Home Medications Medication Instructions Recorded Confirmed Type acetaminophen [Tylenol Extra 1,000 mg PO Q6H PRN 08/22/18 09/02/19 History Strength] acyclovir 400 mg PO TID PRN 08/22/18 09/02/19 History albuterol sulfate [Ventolin HFA] 2 puff INHALATION Q4H PRN 08/22/18 09/02/19 History aspirin [Aspir-81] 81 mg PO QAM 08/22/18 09/02/19 History baclofen 10 mg PO TID PRN 08/22/18 09/02/19 History cholecalciferol (vitamin D3) 1,000 units PO QAM 08/22/18 09/02/19 History [Vitamin D3] furosemide [Lasix] 20 mg PO DAILY PRN 08/22/18 09/02/19 History levothyroxine 100 mcg PO QAM 08/22/18 09/02/19 History lisinopril 20 mg PO QAM 08/22/18 09/02/19 History zolpidem 10 mg PO HS PRN 08/22/18 09/02/19 History docusate sodium [Colace] 100 mg PO BID PRN 09/09/18 09/02/19 History ezetimibe 10 mg PO QAM 02/18/19 09/02/19 History ranitidine HCl 150 mg PO BID PRN 02/18/19 09/02/19 History Lactobacillus rhamnosus GG 1 cap PO DAILY 09/02/19 09/02/19 History [Culturelle] fluticasone propionate 2 spray INTRANASAL DAILY 09/02/19 09/02/19 History hydrocodone-acetaminophen 1 tab PO Q6H PRN 09/02/19 09/02/19 History ipratropium-albuterol 3 ml INHALATION UD PRN 09/02/19 09/02/19 History lidocaine 1 patch TRANSDERMAL DAILY PRN 09/02/19 09/02/19 History multivitamin 1 tab PO QAM 09/02/19 09/02/19 History Patient History Medical History HLD (hyperlipidemia) (Chronic) GERD (gastroesophageal reflux disease) (Chronic) Hypothyroidism (Chronic) Atrial fibrillation and flutter (Resolved) S/P ablation Urinary problem URINARY LEAKAGE Pulmonary embolism (Resolved) Pneumonia Bronchitis Asthma (Chronic) High blood pressure (Chronic) Irritable colon (Chronic Unknown) Lumbar radiculopathy (Acute) Sigmoid diverticulitis (Resolved) Abdominal hernia Atrial fibrillation Chronic back pain Chronic obstructive pulmonary disease GERD (gastroesophageal reflux disease) Hyperlipidemia Hypothyroidism Migraine Osteoarthritis Peripheral neuropathy Sleep apnea NO MACHINE Surgical History S/P colon resection (Chronic) Hx of fusion of cervical spine (Chronic) S/P lumbar fusion (Chronic) History of adenoidectomy History of anesthesia reaction EXTREMELY SLOW TO WAKE UP (COLON RESECTION) History of appendectomy History of bowel resection History of bunionectomy RT FOOT History of carpal tunnel release RT History of colonoscopy History of dilatation and curettage History of esophagogastroduodenoscopy (EGD) History of tonsillectomy History of tooth extraction History of total abdominal hysterectomy and bilateral salpingo-oophorectomy S/P ablation of atrial fibrillation 5 YEARS AGO Family History Mother Family history of esophageal cancer Other Cancer Gallbladder disease Heart disease Hypertension Lung disease Social History Preferred Language: Mongolian Communication Ability: Effective Wiener Packer Required: No Beliefs That Will Affect Care: None Current Living Situation: Alone Current Living Situation Comment: Other Information That Helps Us Care for You: No Feels Safe at Home: Yes Safety Concerns: Feels Safe At This Time Smoking Status: Former smoker Tobacco Type: cigarettes ; Cigarettes Per Day: QUIT 11 YEARS AGO ; Do You Dip or Chew Tobacco: No ; Second Hand Exposure: No ; Tobacco Cessation Education Requested by Patient: No Hx Alcohol Use: Yes Alcohol type: wine Alcohol Intake Frequency: Rarely Hx Substance Use: No Review of Systems Review of Systems: All systems reviewed & are unremarkable except as noted in HPI & below Physical Exam Constitutional: WD/WN, vitals as above Eyes: PERRL, conjunctivae normal, anicteric sclerae ENMT: external ear and nose normal, oropharynx normal Neck: trachea midline, no thyromegaly normal visual inspection Respiratory: normal respiratory effort, lungs clear to auscultation Cardiovascular: RRR, no murmur, no edema Gastrointestinal (Abdomen): normal bowel sounds, soft, nontender, no hepatosplenomegaly Musculoskeletal: no cyanosis or clubbing, extremities motor strength 5/5 Skin: no rashes, warm and dry Psychiatric: A+Ox3, euthymic affect Results & Data Vital Signs (Past 12 Hours) Vital Signs Temp Pulse Resp BP Pulse Ox 09/03/19 07:31 36.7 C 70 18 118/75 94 09/02/19 23:57 36.7 C 71 16 148/85 H 96 PG Care Time/CCT Total # of Minutes Spent Total Time Spent with Patient: Total time spent is greater than 50% in coordination of care (as documented) at patient's floor/unit and/or counseling patient: (1) Discitis Spinal region: lumbar Qualified Code(s): M46.46 - Discitis, unspecified, lumbar region
--- NOTE | 2019-09-03 11:26 | Orthopedic Consultation ---
Date of Consultation September 03, 2019 Assessment & Plan (1) Cervical radiculopathy: X-rays and MRI scans were reviewed from an outside facility she does appear to have an inflammatory process at the T1 C7 interval of the cervical thoracic junction does seem consistent with discitis more than just a degenerative inflammatory process. Plan Conservative nonoperative care is the appropriate pathway for this pathology to clean light of any neurological deficits. I think she needs to be watched carefully and needs appropriate IV antibiotics. If this evolves into a neurologic issue worsening structure and collapse of the interspace surgery could be a possible option for this patient. Present on Admission?: Yes History of Present Illness Attending Physician: Nohelia Lang MD History of Present Illness Patient is a pleasant 64-year-old female. I have known her for several years he has fairly significant cervical spine disease and has had several significant surgical cervical procedures. He is had approximately 2 weeks of malaise but no fever sweats chills or bowel or bowel bladder complaint Allergies Allergy/AdvReac Type Severity Reaction Status Date / Time losartan Allergy Severe SWELLING Verified 09/02/19 17:34 OF FACE, LIPS & TONGUE Penicillins Allergy Severe SWELLING Verified 09/02/19 17:34 OF FACE, LIPS & TONGUE fentanyl Allergy Intermediate itching Verified 09/02/19 17:34 tramadol AdvReac Severe Hallucinati Verified 09/03/19 08:10 ons Sulfa (Sulfonamide AdvReac Intermediate URNIARY Verified 09/03/19 08:10 Antibiotics) FREQUENCY sulfamethoxazole AdvReac Intermediate URNIARY Verified 09/03/19 08:10 FREQUENCY metronidazole AdvReac Mild STOMACH Verified 09/02/19 17:34 PAIN trimethoprim AdvReac Mild URINARY Verified 09/03/19 08:10 FREQUENCY Home Medications Home Medications Medication Instructions Recorded Confirmed Type acetaminophen [Tylenol Extra 1,000 mg PO Q6H PRN 08/22/18 09/02/19 History Strength] acyclovir 400 mg PO TID PRN 08/22/18 09/02/19 History albuterol sulfate [Ventolin HFA] 2 puff INHALATION Q4H PRN 08/22/18 09/02/19 History aspirin [Aspir-81] 81 mg PO QAM 08/22/18 09/02/19 History baclofen 10 mg PO TID PRN 08/22/18 09/02/19 History cholecalciferol (vitamin D3) 1,000 units PO QAM 08/22/18 09/02/19 History [Vitamin D3] furosemide [Lasix] 20 mg PO DAILY PRN 08/22/18 09/02/19 History levothyroxine 100 mcg PO QAM 08/22/18 09/02/19 History lisinopril 20 mg PO QAM 08/22/18 09/02/19 History zolpidem 10 mg PO HS PRN 08/22/18 09/02/19 History docusate sodium [Colace] 100 mg PO BID PRN 09/09/18 09/02/19 History ezetimibe 10 mg PO QAM 02/18/19 09/02/19 History ranitidine HCl 150 mg PO BID PRN 02/18/19 09/02/19 History Lactobacillus rhamnosus GG 1 cap PO DAILY 09/02/19 09/02/19 History [Culturelle] fluticasone propionate 2 spray INTRANASAL DAILY 09/02/19 09/02/19 History hydrocodone-acetaminophen 1 tab PO Q6H PRN 09/02/19 09/02/19 History ipratropium-albuterol 3 ml INHALATION UD PRN 09/02/19 09/02/19 History lidocaine 1 patch TRANSDERMAL DAILY PRN 09/02/19 09/02/19 History multivitamin 1 tab PO QAM 09/02/19 09/02/19 History Patient History Medical History HLD (hyperlipidemia) (Chronic) GERD (gastroesophageal reflux disease) (Chronic) Hypothyroidism (Chronic) Atrial fibrillation and flutter (Resolved) S/P ablation Urinary problem URINARY LEAKAGE Pulmonary embolism (Resolved) Pneumonia Bronchitis Asthma (Chronic) High blood pressure (Chronic) Irritable colon (Chronic Unknown) Lumbar radiculopathy (Acute) Sigmoid diverticulitis (Resolved) Abdominal hernia Atrial fibrillation Chronic back pain Chronic obstructive pulmonary disease GERD (gastroesophageal reflux disease) Hyperlipidemia Hypothyroidism Migraine Osteoarthritis Peripheral neuropathy Sleep apnea NO MACHINE Surgical History S/P colon resection (Chronic) Hx of fusion of cervical spine (Chronic) S/P lumbar fusion (Chronic) History of adenoidectomy History of anesthesia reaction EXTREMELY SLOW TO WAKE UP (COLON RESECTION) History of appendectomy History of bowel resection History of bunionectomy RT FOOT History of carpal tunnel release RT History of colonoscopy History of dilatation and curettage History of esophagogastroduodenoscopy (EGD) History of tonsillectomy History of tooth extraction History of total abdominal hysterectomy and bilateral salpingo-oophorectomy S/P ablation of atrial fibrillation 5 YEARS AGO Family History Mother Family history of esophageal cancer Other Cancer Gallbladder disease Heart disease Hypertension Lung disease Social History Preferred Language: Cymro Communication Ability: Effective Assembly Lead Person Required: No Beliefs That Will Affect Care: None Current Living Situation: Alone Current Living Situation Comment: Other Information That Helps Us Care for You: No Feels Safe at Home: Yes Safety Concerns: Feels Safe At This Time Smoking Status: Former smoker Tobacco Type: cigarettes ; Cigarettes Per Day: QUIT 11 YEARS AGO ; Do You Dip or Chew Tobacco: No ; Second Hand Exposure: No ; Tobacco Cessation Education Requested by Patient: No Hx Alcohol Use: Yes Alcohol type: wine Alcohol Intake Frequency: Rarely Hx Substance Use: No Review of Systems Review of Systems: Patient never had any fever sweats chills did have a feeling of malaise and flulike symptoms a few weeks earlier. Denies any neurological deficits weakness or paresthesias Physical Exam Physical Exam: He has decreased range of motion of cervical spine and thoracic spine slight pain with percussion He has an intact neurological examination 5/5 strength good sensation and motor ability He does have decreased range of motion of flexion extension of the cervical and thoracic spine and slight pain with percussion Results & Data Vital Signs (Past 12 Hours) Vital Signs Temp Pulse Resp BP Pulse Ox 09/03/19 10:42 70 18 94 09/03/19 07:31 36.7 C 70 18 118/75 94 09/02/19 23:57 36.7 C 71 16 148/85 H 96 PG Care Time/CCT Total # of Minutes Spent Total Time Spent with Patient: Total time spent is greater than 50% in coordination of care (as documented) at patient's floor/unit and/or counseling patient:
--- NOTE | 2019-09-03 12:15 | Hospitalist Progress Note ---
Date of Service September 03, 2019 Assessment & Plan (1) Discitis: Pt is 64 y/o F with PMH asthma, COPD, a-fib/a-flutter s/p pulm vein isolation, HTN, HLD, IBS, diverticulitis s/p colon resection, GERD, gastroparesis, hypothyroidism, PE in 2008, chronic back pain, h/o c-spine and l- spine surgery, presented to ER with c/o abnormal MRI and progressively worsening mid-lower back pain. -Endorses progressive pain in R shoulder, cervical spine, mid-lower thoracolumbar spine as well as myalgias and fatigue -Denies fever, chills. No leukocytosis, lactic acid normal -Follows with Dr Del Castillo for pain management -MRI C-spine w/wo contrast report with findings suspicious for discitis/osteomyelitis at T1-with prevertebral enhancement in this region in the upper thoracic region suspicious for infectious/inflammatory process. No focal fluid collection or abscess seen. -MRI L-SPINE w/wo contrast report status post right sided effusion what appears to be S1-2, moderate L5-S1 central canal stenosis with moderate bilateral foraminal narrowing, no lumbar spine disc herniation -Blood cultures pending. Continue empiric vanc and cefepime for now, per ID -Evaluated by Dr. Blackburn who feels this is discitis. Conservative management for now. Watch carefully and continue IV abx -Continue baclofen as needed, home hydrocodone. PRN Dilaudid added (2) Asthma: No wheezing or shortness of breath currently -DuoNebs as needed (3) Atrial fibrillation and flutter: S/P ablation Current sinus rhythm (4) High blood pressure: Normotensive -Continue lisinopril (5) Hypothyroidism: Continue levothyroxine (6) HLD (hyperlipidemia): Continue Zetia DVT Prophylaxis -SCDs for now in case surgical procedure. Consider adding SQ heparin tomorrow if still proceeding with conservative management. Follows with Dr Tejada for routine care Pt was seen and care coordinated with Dr Lang. See addendum Supervising Physician Co-Signing Physician Notes Pt was seen and examined. Agreed with Yris HAWKINS exam, assessment and plan. Pt sitting in chair with moderate pain. She grades her pain between 6 and 7 out 10. She said that the pain meds helps. Denies any bladder and bowel loss. Blood cx so far pending. She has been afebrile and WBC within normal limit. ESR and procalcitonin are normal. C-reactive protein mildly elevates mostly due to inflammatory process. Ortho on board recommended conservative management. ID on board recommended to continue IV abx. Will continue pain management. PT/OT eval. Will follow blood cx and CBC. Continue monitor very closely. MD Rickey Subjective Seen and examined in 388-2. Experiencing back and neck pain. Also experiencing burning pain across chest. feels anxious about diagnosis but better after discussing treatment plan. No fever, chills, lightheadedness, headache, shortness of breath, nausea, vomiting, abdominal pain, dysuria, diarrhea or constipation. Has had back pain for years and follows with pain management. Recently having muscle spasms near shoulders as well as mid-lower back pain with paresthesias in left leg. Review of Systems Review of Systems: At least ten systems reviewed and negative except as noted in the HPI. Physical Exam Physical Exam: General Appearance: WD/WN, vitals as above, NAD, sitting up in bed, +appears to be in pain, anxious Head: normocephalic, atraumatic Eyes: normal inspection, PERRL, conjunctivae normal, anicteric sclerae ENT: external ear and nose normal, oropharynx normal Neck: trachea midline, no thyromegaly normal visual inspection Respiratory: lungs clear to auscultation, no wheeze, rales, rhonchi. Normal insp/exp effort, no accessory muscle use Cardiovascular: regular rate, rhythm, no murmur, normal peripheral pulses. Vessels: no JVD or carotid bruit Chest: normal inspection of chest, no tenderness to palpation Abdomen/GI: normal bowel sounds, soft, nontender, no hepatosplenomegaly Extremities/Musculoskelatal: Right sided paraspinal muscle tenderness with spasm, mid-low vertebral TTP. No cyanosis or clubbing Neurologic: PERRL, EOMI, no face palsy, no dysarthria CN's II-XI intact bilaterally and moves all extremities. RUE 4/5, LUE 5/5, BLE 4/5, sensation to light touch intact Psychiatric: A+Ox3, anxious and intermittently tearful. Feels depressed Skin: no rashes, normal color, warm/dry Results & Data Vital Signs (Past 12 Hours) Vital Signs Temp Pulse Resp BP Pulse Ox 09/03/19 10:42 70 18 94 09/03/19 07:31 36.7 C 70 18 118/75 94 Laboratory Results Short CBC 09/02/19 09/03/19 Range/Units 16:32 05:14 WBC 7.18 5.97 (4.8-10.8) K/uL Hgb 16.1 H 14.1 (12.0-16.0) g/dL Hct 45.1 41.3 (37-47) % Plt Count 337 272 (130-400) K/uL BMP 09/02/19 09/03/19 16:32 05:14 Sodium 138 138 Potassium 3.8 3.7 Chloride 104 105 Carbon Dioxide 24 26 BUN 19 H 14 Creatinine 0.68 0.60 Glucose 101 H 90 Calcium 9.8 8.7 Liver Function 09/02/19 Range/Units 16:32 Total Bilirubin 0.6 (0.2-1) mg/dl AST 18 (15-37) U/L ALT 32 (12-78) U/L Alkaline Phosphatase 88 (45-117) U/L Albumin 4.0 (3.4-5.0) gm/dl (1) Discitis Spinal region: lumbar Qualified Code(s): M46.46 - Discitis, unspecified, lumbar region
[2019-09-03] MEDS: LORazepam 0.5 MG TAB PO PRN ×2 (12:56→22:16)
[2019-09-04] MEDS: HYDROCODONE/ACETAMINOPHEN 10/325 TAB PO PRN (05:57)
[2019-09-04] MEDS: LEVOTHYROXINE SODIUM 100 MCG TABLET PO SCH (05:57)
[2019-09-04 06:01] LABS: Hematocrit (blood only) 41.8 % (37-47); Mean Corpuscular Hemoglobin 30.6 pg (25-34); Mean Corpuscular Hgb Conc 33.5 g/dL (32-36); Mean Corpuscular Volume 91.5 fL (80-100); Mean Platelet Volume 9.1 fL (7.4-10.4); Platelet Count 277 K/uL (130-400); RDW Coefficient of Variation 12.8 % (11.5-14.5); RDW Standard Deviation 42.9 fL (36.4-46.3); Red Blood Count 4.57 M/uL (4.2-5.4); White Blood Count 5.96 K/uL (4.8-10.8)
[2019-09-04 06:30] LABS: BUN Creatinine Ratio 24.2 (10-20); Calcium 8.5 mg/dl (8.5-10.1); Creatinine Clr Calc Pharmacy 96.1 ml/min; Est GFR (African American) 110.7; Est GFR (Non-African American) 95.5; Potassium 3.9 mmol/L (3.5-5.1)
[2019-09-04] MEDS: CHOLECALCIFEROL 1,000 UNITS TAB PO SCH (09:14)
[2019-09-04] MEDS: FLUTICASONE PROPIONATE NA SPR 16 GM BTL NAE SCH (09:14)
[2019-09-04] MEDS: CEFEPIME 2,000 MG in SYRINGE 7.5 ML IV SCH ×2 (09:14→21:22)
[2019-09-04] MEDS: EZETIMIBE 10 MG TABLET PO SCH (09:15)
[2019-09-04] MEDS: lisinopriL 20 MG TAB PO SCH (09:15)
[2019-09-04] MEDS: VANCOMYCIN HCL 1,250 MG in SODIUM CHLORIDE 0.9% 250 ML IV SCH (09:27)
[2019-09-04] MEDS ORDERED: VANCOMYCIN TROUGH ONE (09:30)
--- NOTE | 2019-09-04 10:47 | Hospitalist Progress Note ---
Date of Service September 04, 2019 Assessment & Plan (1) Discitis: Pt is 64 y/o F with PMH asthma, COPD, a-fib/a-flutter s/p pulm vein isolation, HTN, HLD, IBS, diverticulitis s/p colon resection, GERD, gastroparesis, hypothyroidism, PE in 2008, chronic back pain, h/o c-spine and l- spine surgery, presented to ER with c/o abnormal MRI and progressively worsening mid-lower back pain. -Endorses progressive pain in R shoulder, cervical spine, mid-lower thoracolumbar spine as well as myalgias and fatigue -Denies fever, chills. No leukocytosis, lactic acid normal -Follows with Dr Del Castillo for pain management -MRI C-spine w/wo contrast report with findings suspicious for discitis/osteomyelitis at T1-with prevertebral enhancement in this region in the upper thoracic region suspicious for infectious/inflammatory process. No focal fluid collection or abscess seen. -MRI L-SPINE w/wo contrast report status post right sided effusion what appears to be S1-2, moderate L5-S1 central canal stenosis with moderate bilateral foraminal narrowing, no lumbar spine disc herniation -Blood cultures- no growth in 24 hours. Continue empiric vanc and cefepime for now, per ID -Discussed with Dr. Blackburn, who feels this is discitis. Conservative management for now. Will add Iberia J soft collar and toradol PRN -Continue baclofen as needed, home hydrocodone. PRN Dilaudid (2) Asthma: No wheezing or shortness of breath currently -DuoNebs as needed (3) Atrial fibrillation and flutter: S/P ablation Current sinus rhythm (4) High blood pressure: Normotensive -Continue lisinopril (5) Hypothyroidism: Continue levothyroxine (6) HLD (hyperlipidemia): Continue Zetia DVT Prophylaxis SQ heparin Follows with Dr Tejada for routine care Pt was seen and care coordinated with Dr Lang. See addendum Supervising Physician Co-Signing Physician Notes Pt was seen and examined. Agreed with Yris HAWKINS exam, assessment and plan. Pt said that she feels much better today. She said that her pain is very mild today. She only grade her pain to 2 out 10 today. She said that the Toradol seems to be very effective. Denies any bladder, bowel lost and fever. Blood cx so far no growth. She has been afebrile and WBC within normal limit. ESR and procalcitonin are normal. C-reactive protein mildly elevates mostly due to inflammatory process. Ortho on board recommended conservative management and will place a soft Iberia collar to release the pressure. ID on board recommended to continue IV abx and for possible to continue abx for 6 weeks. Will confirm with ID about abx before putting a PICC line. Will continue pain management. PT/OT eval. Will follow blood cx and CBC. Continue monitor very closely. MD Rickey Subjective Seen and examined in 388-2. Back and neck pain have improved somewhat but still painful. No fever, chills, lightheadedness, headache, shortness of breath, nausea, vomiting, abdominal pain, dysuria, diarrhea or constipation. Still with RUE weakness as compared to left. Review of Systems Review of Systems: At least ten systems reviewed and negative except as noted in the HPI. Physical Exam Physical Exam: General Appearance: WD/WN, vitals as above, NAD, sitting up in bedside chair, pleasant, conversing easily Head: normocephalic, atraumatic Eyes: normal inspection, PERRL, conjunctivae normal, anicteric sclerae ENT: external ear and nose normal, oropharynx normal Neck: trachea midline, no thyromegaly normal visual inspection Respiratory: lungs clear to auscultation, no wheeze, rales, rhonchi. Normal insp/exp effort, no accessory muscle use Cardiovascular: regular rate, rhythm, no murmur, normal peripheral pulses. Vessels: no JVD or carotid bruit Chest: normal inspection of chest Abdomen/GI: normal bowel sounds, soft, nontender, no hepatosplenomegaly Extremities/Musculoskelatal: no cyanosis or clubbing Neurologic: PERRL, EOMI, no face palsy, no dysarthria CN's II-XI intact bilaterally and moves all extremities, LUE 5/5, RUE 4/5 Psychiatric: A+Ox3, euthymic affect Skin: no rashes, normal color, warm/dry Results & Data Vital Signs (Past 12 Hours) Vital Signs Temp Pulse Resp BP BP Pulse Ox 09/04/19 07:12 36.6 C 71 18 129/84 95 09/03/19 23:31 36.8 C 63 16 136/82 95 Laboratory Results Short CBC 09/02/19 09/02/19 09/02/19 Range/Units 16:32 16:32 16:32 WBC (4.8-10.8) K/uL RBC 5.05 (4.2-5.4) M/uL Hgb (12.0-16.0) g/dL Hct (37-47) % MCV 89.3 (80-100) fL MCH 31.9 (25-34) pg MCHC 35.7 (32-36) g/dL RDW Std Deviation 41.8 (36.4-46.3) fL RDW Coeff of Viky 12.9 (11.5-14.5) % Plt Count (130-400) K/uL MPV 8.8 (7.4-10.4) fL Immature Gran % (Auto) 0.1 % Neut % (Auto) 46.0 % Lymph % (Auto) 41.6 % Loving % (Auto) 10.3 % Eos % (Auto) 1.4 % Baso % (Auto) 0.6 % Immature Gran # (Auto) 0.01 (0.00-0.02) K/uL Neut # (Auto) 3.30 (1.4-6.5) K/uL Lymph # (Auto) 2.99 (1.2-3.4) K/uL Loving # (Auto) 0.74 H (0.11-0.59) K/uL Eos # (Auto) 0.10 (0-0.5) K/uL Baso # (Auto) 0.04 (0-0.2) K/uL ESR (0-21) mm/hr PT 10.6 (9.0-12.0) Seconds INR 1.0 (0.9-1.1) APTT 26.8 (21.0-31.0) Seconds PTT Ratio 1.0 Sodium 138 (136-145) mmol/L Potassium 3.8 (3.5-5.1) mmol/L Chloride 104 (98-107) mmol/L Carbon Dioxide 24 (21-32) mmol/L Anion Gap 10.0 (3-11) BUN 19 H (7-18) mg/dl Creatinine 0.68 (0.6-1.2) mg/dl Est Cr Clr Drug Dosing 84.9 ml/min Est GFR ( Amer) 105.6 Est GFR (Non-Af Amer) 91.2 BUN/Creatinine Ratio 27.6 H (10-20) Glucose 101 H (70-99) mg/dl Lactate (0.4-2.0) mmol/L Calcium 9.8 (8.5-10.1) mg/dl Total Bilirubin 0.6 (0.2-1) mg/dl AST 18 (15-37) U/L ALT 32 (12-78) U/L Alkaline Phosphatase 88 (45-117) U/L C-Reactive Protein (0-0.29) mg/dl Total Protein 7.3 (6.4-8.2) gm/dl Albumin 4.0 (3.4-5.0) gm/dl Globulin 3.3 (2.5-4.0) gm/dl Albumin/Globulin Ratio 1.2 (0.9-2) Procalcitonin (0-0.5) ng/ml Hepatitis C Ab Screen (Neg) 09/02/19 09/02/19 09/03/19 Range/Units 16:32 16:34 05:14 WBC (4.8-10.8) K/uL RBC 4.55 (4.2-5.4) M/uL Hgb (12.0-16.0) g/dL Hct (37-47) % MCV 90.8 (80-100) fL MCH 31.0 (25-34) pg MCHC 34.1 (32-36) g/dL RDW Std Deviation 42.8 (36.4-46.3) fL RDW Coeff of Viky 12.9 (11.5-14.5) % Plt Count (130-400) K/uL MPV 8.9 (7.4-10.4) fL Immature Gran % (Auto) % Neut % (Auto) % Lymph % (Auto) % Loving % (Auto) % Eos % (Auto) % Baso % (Auto) % Immature Gran # (Auto) (0.00-0.02) K/uL Neut # (Auto) (1.4-6.5) K/uL Lymph # (Auto) (1.2-3.4) K/uL Loving # (Auto) (0.11-0.59) K/uL Eos # (Auto) (0-0.5) K/uL Baso # (Auto) (0-0.2) K/uL ESR (0-21) mm/hr PT (9.0-12.0) Seconds INR (0.9-1.1) APTT (21.0-31.0) Seconds PTT Ratio Sodium (136-145) mmol/L Potassium (3.5-5.1) mmol/L Chloride (98-107) mmol/L Carbon Dioxide (21-32) mmol/L Anion Gap (3-11) BUN (7-18) mg/dl Creatinine (0.6-1.2) mg/dl Est Cr Clr Drug Dosing ml/min Est GFR ( Amer) Est GFR (Non-Af Amer) BUN/Creatinine Ratio (10-20) Glucose (70-99) mg/dl Lactate 0.9 (0.4-2.0) mmol/L Calcium (8.5-10.1) mg/dl Total Bilirubin (0.2-1) mg/dl AST (15-37) U/L ALT (12-78) U/L Alkaline Phosphatase (45-117) U/L C-Reactive Protein (0-0.29) mg/dl Total Protein (6.4-8.2) gm/dl Albumin (3.4-5.0) gm/dl Globulin (2.5-4.0) gm/dl Albumin/Globulin Ratio (0.9-2) Procalcitonin (0-0.5) ng/ml Hepatitis C Ab Screen Neg (Neg) 09/03/19 09/03/19 09/03/19 Range/Units 05:14 10:29 10:29 WBC (4.8-10.8) K/uL RBC (4.2-5.4) M/uL Hgb (12.0-16.0) g/dL Hct (37-47) % MCV (80-100) fL MCH (25-34) pg MCHC (32-36) g/dL RDW Std Deviation (36.4-46.3) fL RDW Coeff of Viky (11.5-14.5) % Plt Count (130-400) K/uL MPV (7.4-10.4) fL Immature Gran % (Auto) % Neut % (Auto) % Lymph % (Auto) % Loving % (Auto) % Eos % (Auto) % Baso % (Auto) % Immature Gran # (Auto) (0.00-0.02) K/uL Neut # (Auto) (1.4-6.5) K/uL Lymph # (Auto) (1.2-3.4) K/uL Loving # (Auto) (0.11-0.59) K/uL Eos # (Auto) (0-0.5) K/uL Baso # (Auto) (0-0.2) K/uL ESR 10 (0-21) mm/hr PT (9.0-12.0) Seconds INR (0.9-1.1) APTT (21.0-31.0) Seconds PTT Ratio Sodium 138 (136-145) mmol/L Potassium 3.7 (3.5-5.1) mmol/L Chloride 105 (98-107) mmol/L Carbon Dioxide 26 (21-32) mmol/L Anion Gap 7.0 (3-11) BUN 14 (7-18) mg/dl Creatinine 0.60 (0.6-1.2) mg/dl Est Cr Clr Drug Dosing 94.5 ml/min Est GFR ( Amer) 110.1 Est GFR (Non-Af Amer) 95.0 BUN/Creatinine Ratio 23.2 H (10-20) Glucose 90 (70-99) mg/dl Lactate (0.4-2.0) mmol/L Calcium 8.7 (8.5-10.1) mg/dl Total Bilirubin (0.2-1) mg/dl AST (15-37) U/L ALT (12-78) U/L Alkaline Phosphatase (45-117) U/L C-Reactive Protein 0.39 H (0-0.29) mg/dl Total Protein (6.4-8.2) gm/dl Albumin (3.4-5.0) gm/dl Globulin (2.5-4.0) gm/dl Albumin/Globulin Ratio (0.9-2) Procalcitonin (0-0.5) ng/ml Hepatitis C Ab Screen (Neg) 09/03/19 09/04/19 09/04/19 Range/Units 10:29 05:24 05:24 WBC 5.96 (4.8-10.8) K/uL RBC 4.57 (4.2-5.4) M/uL Hgb 14.0 (12.0-16.0) g/dL Hct 41.8 (37-47) % MCV 91.5 (80-100) fL MCH 30.6 (25-34) pg MCHC 33.5 (32-36) g/dL RDW Std Deviation 42.9 (36.4-46.3) fL RDW Coeff of Viky 12.8 (11.5-14.5) % Plt Count 277 (130-400) K/uL MPV 9.1 (7.4-10.4) fL Immature Gran % (Auto) % Neut % (Auto) % Lymph % (Auto) % Loving % (Auto) % Eos % (Auto) % Baso % (Auto) % Immature Gran # (Auto) (0.00-0.02) K/uL Neut # (Auto) (1.4-6.5) K/uL Lymph # (Auto) (1.2-3.4) K/uL Loving # (Auto) (0.11-0.59) K/uL Eos # (Auto) (0-0.5) K/uL Baso # (Auto) (0-0.2) K/uL ESR (0-21) mm/hr PT (9.0-12.0) Seconds INR (0.9-1.1) APTT (21.0-31.0) Seconds PTT Ratio Sodium 139 (136-145) mmol/L Potassium 3.9 (3.5-5.1) mmol/L Chloride 106 (98-107) mmol/L Carbon Dioxide 27 (21-32) mmol/L Anion Gap 6.0 (3-11) BUN 14 (7-18) mg/dl Creatinine 0.59 L (0.6-1.2) mg/dl Est Cr Clr Drug Dosing 96.1 ml/min Est GFR ( Amer) 110.7 Est GFR (Non-Af Amer) 95.5 BUN/Creatinine Ratio 24.2 H (10-20) Glucose 90 (70-99) mg/dl Lactate (0.4-2.0) mmol/L Calcium 8.5 (8.5-10.1) mg/dl Total Bilirubin (0.2-1) mg/dl AST (15-37) U/L ALT (12-78) U/L Alkaline Phosphatase (45-117) U/L C-Reactive Protein (0-0.29) mg/dl Total Protein (6.4-8.2) gm/dl Albumin (3.4-5.0) gm/dl Globulin (2.5-4.0) gm/dl Albumin/Globulin Ratio (0.9-2) Procalcitonin < 0.05 (0-0.5) ng/ml Hepatitis C Ab Screen (Neg) [facility] 09/04/19 05:24 Sodium 139 Potassium 3.9 Chloride 106 Carbon Dioxide 27 BUN 14 Creatinine 0.59 L Glucose 90 Calcium 8.5 (1) Discitis Spinal region: lumbar Qualified Code(s): M46.46 - Discitis, unspecified, lumbar region
--- NOTE | 2019-09-04 11:11 | Pharmacy Report ---
Pharmacy Abx Dose Short Note - Date of Service September 04, 2019 - Assessment & Plan Assessment 64 year old F receiving vancomycin and cefepime for treatment of discitis. ID has been consulted and recommends to continue both antibiotics for now. Ortho consulted and feels this is more infectious than a degenerative inflammatory process. Day # 3 of antimicrobial therapy. Blood cultures - NGTD SCr remains stable Plan Vancomycin * Trough level of 19.1 mcg/mL is therapeutic and at steady state but I anticipate vancomycin to accumulate with the elevated BMI of 36 * I initially placed 10 am dose on hold until level was evaluated but this was missed by nursing and dose was administered. Level appropriate to continue for now but will plan to extend interval to prevent accumulation * Change to 1250 mg IV every 12 hours - start 09/05 @ 0000, when level expected to be ~17 * Goal trough level : 15 to 20 mcg/mL * Repeat trough level ordered for: 09/06/19 at 1130 (prior to the 4th dose of new regimen) Pharmacy will continue to follow and will adjust dose/frequency as necessary. Thank you.
[2019-09-04] MEDS: HEPARIN SOD 5,000 UNIT/0.5 ML VIAL SQ SCH ×2 (13:36→21:22)
--- NOTE | 2019-09-04 13:52 | Infectious Disease Progress Nt ---
Date of Service September 04, 2019 Assessment & Plan (1) Discitis: clinically not presenting as infection as she is afebrile, wihout leukocytosis and without other lab abnormalities that would be expected with discitis, such as elevated inflammatory markers, procalcitonin, positive cultures. she remains on abx and cultures are negative. no plan for OR/surgical intervention. would consider repeat imaging to confirm findings of discitis. She would need min 6 weeks of IV abx for treatment and with low clinical evidence and negative cultures she would likely need prolonged course of cefepime and vanco for emperic treatment. Subjective pt remains on emperic cefepime and vanco, tolerating well. remains afebrile s/p ortho eval, no intervention. blood cultures remain negative, she remains afebrile. ESR 10, crp 0.3, procalcitonin <0.05. wbc remains normal, 5. Results & Data Vital Signs (Past 12 Hours) Vital Signs Temp Pulse Resp BP Pulse Ox 09/04/19 07:12 36.6 C 71 18 129/84 95 Laboratory Results Microbiology 09/02/19 16:32 Blood Aerobic Blood Culture - Preliminary No growth in Aerobic bottle after 24 hours. 09/02/19 16:32 Blood Anaerobic Blood Culture - Preliminary No growth in Anaerobic bottle after 24 hours. 09/02/19 16:32 Blood Aerobic Blood Culture - Preliminary No growth in Aerobic bottle after 24 hours. 09/02/19 16:32 Blood Anaerobic Blood Culture - Preliminary No growth in Anaerobic bottle after 24 hours. PG Care Time/CCT Total # of Minutes Spent Total Time Spent with Patient: Total time spent is greater than 50% in coordination of care (as documented) at patient's floor/unit and/or counseling patient: (1) Discitis Spinal region: lumbar Qualified Code(s): M46.46 - Discitis, unspecified, [facility] region
[2019-09-04] MEDS: KETOROLAC TROMETHAMINE 15 MG/ML VIAL IV PRN ×2 (15:34→21:22)
[2019-09-04] MEDS: ZOLPIDEM TARTRATE 10 MG TAB PO PRN (23:31)
[2019-09-05] MEDS ORDERED: VANCOMYCIN HCL 1,250 MG in SODIUM CHLORIDE 0.9% 250 ML IV SCH
[2019-09-05] MEDS: HEPARIN SOD 5,000 UNIT/0.5 ML VIAL SQ SCH ×2 (05:36→14:24)
[2019-09-05] MEDS: LEVOTHYROXINE SODIUM 100 MCG TABLET PO SCH (05:36)
[2019-09-05 05:58] LABS: Hematocrit (blood only) 40.8 % (37-47); Hemoglobin 13.9 g/dL (12.0-16.0); Mean Corpuscular Hemoglobin 30.9 pg (25-34); Mean Corpuscular Hgb Conc 34.1 g/dL (32-36); Mean Corpuscular Volume 90.7 fL (80-100); Mean Platelet Volume 8.9 fL (7.4-10.4); Platelet Count 258 K/uL (130-400); RDW Coefficient of Variation 12.6 % (11.5-14.5); RDW Standard Deviation 41.7 fL (36.4-46.3); White Blood Count 5.27 K/uL (4.8-10.8)
[2019-09-05 06:32] LABS: BUN Creatinine Ratio 27.1 (10-20); Calcium 8.6 mg/dl (8.5-10.1); Creatinine Clr Calc Pharmacy 84.6 ml/min; Est GFR (African American) 106.2; Est GFR (Non-African American) 91.6; Potassium 3.9 mmol/L (3.5-5.1)
[2019-09-05] MEDS: FLUTICASONE PROPIONATE NA SPR 16 GM BTL NAE SCH (09:19)
[2019-09-05] MEDS: CHOLECALCIFEROL 1,000 UNITS TAB PO SCH (09:19)
[2019-09-05] MEDS: CEFEPIME 2,000 MG in SYRINGE 7.5 ML IV SCH (09:19)
[2019-09-05] MEDS: EZETIMIBE 10 MG TABLET PO SCH (09:20)
[2019-09-05] MEDS: lisinopriL 20 MG TAB PO SCH (09:20)
[2019-09-05] MEDS: KETOROLAC TROMETHAMINE 15 MG/ML VIAL IV PRN (09:48)
--- NOTE | 2019-09-05 10:07 | Infectious Disease Progress Nt ---
Date of Service September 05, 2019 Assessment & Plan (1) Discitis: clinically not presenting as infection as she is afebrile, without leukocytosis and without other lab abnormalities that would be expected with discitis, such as elevated inflammatory markers, procalcitonin, positive cultures. she remains on abx and cultures are negative. no plan for OR/surgical intervention. Not entirely convinced MRI findings represent infection. Discussed with patient, she would like to continue with emperic abx as she is feeling better here. Informed that no + cultures to direct therapy and therapy will continue to be emperic, she understands and is agreeable. She does not want to administer abx at home but is agreeable to picc line. Will change her abx to dapto and ertapenem as this is once daily dosing and she is agreeable to [facility], awaiting insurance approval for this. She will need weekly cbc, cmp, esr, cpk while on abx. Discussed with [facility] service, will plan on 4 weeks abx and f/u with ID post d/c. will likely need repeat imaging with t spine MRI as well. Ok for d/c when plan for outpatient abx in place. Subjective pt seen in followup, doing well. feeling much better. no f/c. blood cultures remain negative, tolerating abx. inflammatory markers negative, wbc normal. no back pain, ambulating in room. no cp, sob, cough, no abd pain, no n/v/d. eating well. asking to go home. states she had a picc line in the past with diverticu litis and did not do well administering meds. she is requesting treatment at [facility]. Review of Systems Review of Systems: All systems reviewed & are unremarkable except as noted in HPI & below Physical Exam Constitutional: WD/WN, vitals as above Eyes: PERRL, conjunctivae normal, anicteric sclerae ENMT: external ear and nose normal, oropharynx normal Neck: trachea midline, no thyromegaly normal visual inspection Respiratory: normal respiratory effort, lungs clear to auscultation Cardiovascular: RRR, no murmur, no edema Gastrointestinal (Abdomen): normal bowel sounds, soft, nontender, no hepatosplenomegaly Musculoskeletal: no cyanosis or clubbing, extremities motor strength 5/5 Skin: no rashes, warm and dry Psychiatric: A+Ox3, euthymic affect Results & Data Vital Signs (Past 12 Hours) Vital Signs Temp Pulse Resp BP Pulse Ox 09/05/19 07:13 36.7 C 69 18 117/68 96 09/04/19 23:40 36.4 C L 70 16 138/96 94 Laboratory Results Microbiology 09/02/19 16:32 Blood Aerobic Blood Culture - Preliminary No growth in Aerobic bottle after 48 hours. 09/02/19 16:32 Blood Anaerobic Blood Culture - Preliminary No growth in Anaerobic bottle after 48 hours. 09/02/19 16:32 Blood Aerobic Blood Culture - Preliminary No growth in Aerobic bottle after 48 hours. 09/02/19 16:32 Blood Anaerobic Blood Culture - Preliminary No growth in Anaerobic bottle after 48 hours. PG Care Time/CCT Total # of Minutes Spent Total Time Spent with Patient: Total time spent is greater than 50% in coordination of care (as documented) at patient's floor/unit and/or counseling patient: (1) Discitis Spinal region: lumbar Qualified Code(s): M46.46 - Discitis, unspecified, lumbar region
--- NOTE | 2019-09-05 10:37 | Hospitalist Progress Note ---
Date of Service September 05, 2019 Assessment & Plan (1) Discitis: Pt is 64 y/o F with PMH asthma, COPD, a-fib/a-flutter s/p pulm vein isolation, HTN, HLD, IBS, diverticulitis s/p colon resection, GERD, gastroparesis, hypothyroidism, PE in 2008, chronic back pain, h/o c-spine and l- spine surgery, presented to ER with c/o abnormal MRI and progressively worsening mid-lower back pain. -Endorses progressive pain in R shoulder, cervical spine, mid-lower thoracolumbar spine as well as myalgias and fatigue -Denies fever, chills. No leukocytosis, lactic acid normal -Follows with Dr Del Castillo for pain management -MRI C-spine w/wo contrast report with findings suspicious for discitis/osteomyelitis at T1-with prevertebral enhancement in this region in the upper thoracic region suspicious for infectious/inflammatory process. No focal fluid collection or abscess seen. -MRI L-SPINE w/wo contrast report status post right sided effusion what appears to be S1-2, moderate L5-S1 central canal stenosis with moderate bilateral foraminal narrowing, no lumbar spine disc herniation -Discussed with Dr. Blackburn, who feels this is discitis. Conservative management for now. Will add Trigg J soft collar and Toradol PRN -ID not entirely convinced MRI findings represent infection but plan to continue empiric antibiotics upon discharge. Patient agreeable to [facility] and picc line placement. ID to switch to dapto and ertapenem for once a day dosing -Plan for 4 weeks abx and the follow up in ID clinic. Also likely to need repeat imaging with t spine MRI as well -Consented for picc line, IV team to place prior to discharge -Continue home hydrocodone and baclofen as needed. Will add Meloxicam for help with anti-inflammatory pain (2) Asthma: No wheezing or shortness of breath currently -DuoNebs as needed (3) Atrial fibrillation and flutter: S/P ablation Current sinus rhythm (4) High blood pressure: Normotensive -Continue lisinopril (5) Hypothyroidism: Continue levothyroxine (6) HLD (hyperlipidemia): Continue Zetia DVT Prophylaxis: SQ heparin Follows with Dr Tejada for routine care Pt was seen and care coordinated with Dr Lang. See addendum Supervising Physician Co-Signing Physician Notes Pt was seen and examined. Agreed with Yris HAWKINS exam, assessment and plan. Pt said that she feels much better today. She said that her pain improves significantly. Denies any bladder, bowel lost and fever. Blood cx so far no growth. She has been afebrile and WBC within normal limit. ESR and procalcitonin are normal. C-reactive protein mildly elevates mostly due to inflammatory process. Continue conservative management and soft Trigg collar as per ortho. ID on board recommended to continue IV abx and for possible to continue abx for 6 weeks. PICC line placed today. Script given to case management for Daptomycin and Ertapenem infusion. Will check ESR, CMP, CBC and CPK weekly while on IV antibiotic infusion. MD Rickey Subjective Seen and examined in 388-2. Neck and upper back pain much improved. Still having lower back pain, which seems to be a chronic process. No fever, chills, lightheadedness, headache, shortness of breath, nausea, vomiting, abdominal pain, dysuria, diarrhea or constipation. Hoping for discharge home today after coordination of outpatient IV antibiotics and PT/OT eval. Review of Systems Review of Systems: At least ten systems reviewed and negative except as noted in the HPI. Physical Exam Physical Exam: General Appearance: WD/WN, vitals as above, NAD, sitting up in bedside chair, pleasant, conversing easily Head: normocephalic, atraumatic Eyes: normal inspection, PERRL, conjunctivae normal, anicteric sclerae ENT: external ear and nose normal, oropharynx normal Neck: trachea midline, no thyromegaly normal visual inspection Respiratory: lungs clear to auscultation, no wheeze, rales, rhonchi. Normal insp/exp effort, no accessory muscle use Cardiovascular: regular rate, rhythm, no murmur, normal peripheral pulses. Vessels: no JVD or carotid bruit Chest: normal inspection of chest Abdomen/GI: normal bowel sounds, soft, nontender, no hepatosplenomegaly Extremities/Musculoskelatal: no cyanosis or clubbing Neurologic: PERRL, EOMI, no face palsy, no dysarthria CN's II-XI intact bilaterally and moves all extremities, LUE 5/5, RUE 4/5 Psychiatric: A+Ox3, euthymic affect Skin: no rashes, normal color, warm/dry Results & Data Vital Signs (Past 12 Hours) Vital Signs Temp Pulse Resp BP Pulse Ox 09/05/19 07:13 36.7 C 69 18 117/68 96 09/04/19 23:40 36.4 C L 70 16 138/96 94 Laboratory Results Short CBC 09/05/19 Range/Units 05:35 WBC 5.27 (4.8-10.8) K/uL Hgb 13.9 (12.0-16.0) g/dL Hct 40.8 (37-47) % Plt Count 258 (130-400) K/uL BMP 09/05/19 05:35 Sodium 139 Potassium 3.9 Chloride 108 H Carbon Dioxide 27 BUN 18 Creatinine 0.67 Glucose 96 Calcium 8.6 Cardiac Enzymes 09/05/19 Range/Units 10:50 Total Creatine Kinase 91 (26-192) U/L (1) Discitis Spinal region: lumbar Qualified Code(s): M46.46 - Discitis, unspecified, lumbar region
[2019-09-05] MEDS ORDERED: ERTAPENEM SODIUM 1,000 MG in SODIUM CHLORIDE 0.9% 50 ML IV SCH (11:00)
[2019-09-05] MEDS ORDERED: DAPTOmycin 400 MG in SYRINGE 0 ML IV SCH (12:00)
[2019-09-05] MEDS: LORazepam 0.5 MG TAB PO PRN (12:59)
--- NOTE | 2019-09-05 15:40 | Discharge Summary ---
Date of Service September 05, 2019 Admission HPI Per Admitting Provider Pt is 64 y/o F with PMH asthma, COPD, a-fib/a-flutter s/p pulm vein isolation, HTN, HLD, IBS, diverticulitis s/p colon resection, GERD, gastroparesis, hypothyroidism, PE in 2008, chronic back pain, h/o c-spine and l-spine surgery, presented to ER with c/o abnormal MRI. Pt reports chronic neck and mid and lower back pain which has progressively worsened over past 6 months. Also reports having bilateral arm and hand paresthesias, Arm pain, worse to right arm with right arm weakness, bilateral leg paresthesias and bilateral muscle cramping to thighs and groin with pain worse on left side. Takes hydrocodone prn and uses lidocaine patches prn. Has been following with Dr Del Castillo. Reports past few weeks has been having fatigue and chills. Denies any measured fever. Today had MRI C-spine, L-spine at 611 MRI with findings suspicious for discitis/osteomyelitis at T1 with no focal fluid collection or abscess seen. Patient reports 1 month ago with cough and shortness of breath and completed a course of steroids and reports some residual cough which she has been using her albuterol inhaler for. Chronic intermittent abdominal pain and denies any worsening. Denies chest pain. Reports intermittent headaches. Denies diaphoresis, N/V/D/C, dizziness, syncope, vision changes, orthopnea, palpitations, sore throat, choking, otalgia, rhinorrhea, extremity edema, rashes, urinary symptoms. Admission Exam Per Admitting Provider General: no acute distress, obese Head: normocephalic, atraumatic Eyes: PERRL, EOM's intact, conjunctiva non-injected, anicteric ENT: normal inspection external ears, nose, mucous membranes moist Neck: supple, trachea midline, +tenderness to palpation posterior lower cervical spinous processes Lungs: clear, no respiratory distress, no wheezing/rhonchi/rales CV: RRR, no murmur, no JVD, no pretibial edema Abd: normal BS, soft, non-tender Back: no rash or discolorations, +tenderness to palpation mid thoracic and low lumber spinous processes; Limited bilateral leg raising Ext: no cyanosis, no calf tenderness; Right arm strength 4/5, left arm strength 5/5, bilateral lower leg strength 4/5, distal pulses palpable, brisk capillary refill, sensation to light touch intact Neuro: A&O x 3, no focal deficits noted, normal affect Skin: warm, dry Principal Diagnosis Discitis Discharge Exam General Appearance: WD/WN, vitals as above, NAD, sitting up in bedside chair, pleasant, conversing easily Head: normocephalic, atraumatic Eyes: normal inspection, PERRL, conjunctivae normal, anicteric sclerae ENT: external ear and nose normal, oropharynx normal Neck: trachea midline, no thyromegaly normal visual inspection Respiratory: lungs clear to auscultation, no wheeze, rales, rhonchi. Normal insp/exp effort, no accessory muscle use Cardiovascular: regular rate, rhythm, no murmur, normal peripheral pulses. Vessels: no JVD or carotid bruit Chest: normal inspection of chest Abdomen/GI: normal bowel sounds, soft, nontender, no hepatosplenomegaly Extremities/Musculoskelatal: no cyanosis or clubbing Neurologic: PERRL, EOMI, no face palsy, no dysarthria CN's II-XI intact bilaterally and moves all extremities, LUE 5/5, RUE 4/5 Psychiatric: A+Ox3, euthymic affect Skin: no rashes, normal color, warm/dry Discharge Data Allergies Allergy/AdvReac Type Severity Reaction Status Date / Time losartan Allergy Severe SWELLING Verified 09/02/19 17:34 OF FACE, LIPS & TONGUE Penicillins Allergy Severe SWELLING Verified 09/02/19 17:34 OF FACE, LIPS & TONGUE fentanyl Allergy Intermediate itching Verified 09/02/19 17:34 tramadol AdvReac Severe Hallucinati Verified 09/03/19 08:10 ons Sulfa (Sulfonamide AdvReac Intermediate URNIARY Verified 09/03/19 08:10 Antibiotics) FREQUENCY sulfamethoxazole AdvReac Intermediate URNIARY Verified 09/03/19 08:10 FREQUENCY metronidazole AdvReac Mild STOMACH Verified 09/02/19 17:34 PAIN trimethoprim AdvReac Mild URINARY Verified 09/03/19 08:10 FREQUENCY Consultations 09/02/19 17:24 ED Decision to Admit Stat 09/02/19 20:31 Consult Case Management - Discharge Planning Routine Consult Orthopedic Surgery Routine 09/02/19 21:12 Consult Infectious Diseases Routine Hospital Course (1) Discitis: Pt is 64 y/o F with PMH asthma, COPD, a-fib/a-flutter s/p pulm vein isolation, HTN, HLD, IBS, diverticulitis s/p colon resection, GERD, gastroparesis, hypothyroidism, PE in 2008, chronic back pain, h/o c-spine and l- spine surgery, presented to ER with c/o abnormal MRI and progressively worsening mid-lower back pain. Patient had been experiencing progressive upper neck pain and mid-lower thoracolumbar spine and myalgias/fatigue for the past few weeks. Out-patient MRI cervical spine w/wo contrast report with findings suspicious for discitis/osteomyelitis at T1-with prevertebral enhancement in this region in the upper thoracic region suspicious for infectious/inflammatory process. No focal fluid collection or abscess seen. Came to the ED for further evaluation and was started on empiric vancomycin and cefepime for possible osteomyelitis. During admission, patient remained afebrile and hemodynamically stable with no leukocytosis, lactic acid normal, ESR and procalcitonin normal. Orthopedic surgery and infectious disease services were consulted. Dr. Blackburn of ortho reviewed outside imaging and felt that inflammatory process at the T1 C7 interval of the cervical thoracic junction does seem consistent with discitis more than just a degenerative inflammatory process. Encouraged close monitoring and continuation of IV antibiotics in case of infection. Cervical spine placed in Lyons J collar for additional support with Toradol for anti-inflammatory pain relief. Dr. Peralta of infectious disease was also consulted and was not entirely convinced MRI findings represent infection due to negative blood cultures, afebrile, no leukocytosis, ESR or procalcitonin elevation. Since infection cannot be completely ruled out, plan to continue IV Dapto and Er tapenem upon discharge via picc line x 4 weeks. Agreeable to report to [facility] for daily antibiotic. At time of discharge, patient was afebrile and hemodynamically stable. Pain in upper spine significantly reduced during stay with addition of anti-inflammatory control. Discharged with instruction to follow-up with PCP, infectious disease and Ortho. Plan for weekly lab work while receiving IV antibiotics. Likely to need repeat imaging with thoracic spine MRI following completion of antibiotics. (2) Asthma: (3) Atrial fibrillation and flutter: (4) High blood pressure: (5) Hypothyroidism: (6) HLD (hyperlipidemia): Total Time Total Time Spent Total Time Spent (In Minutes): 60 Total Time Includes: Examination of the Patient, Discharge Planning, Medication Reconciliation, Communication With Other Providers and Other Discharge Plan Discharge Items Patient Disposition: Home - Self-Care Reason For Visit: POSSIBLE DISCITIS Discharge Diagnosis: Discitis Activity: Resume your previous activity Non-emergency contact: Primary Care Provider Call non-emergency contact if: you have any medication questions, your symptoms worsen and your pain is worsening Follow-up/Referrals: Yris Morley PA-C [Physician Dining Services Manager] - None Trisha,Cj Ayala MD [Primary Care Provider] - 09/09/19 11:00 am Diet: Heart Healthy Addtl Attending Provider Instructions: MEDICATION CHANGES: You are being discharged with an picc line for 4 weeks of IV Daptomycin and Ertapenem. Please follow up at [facility] for daily administration of medication. You are also being discharged on Meloxicam 15mg daily PRN for inflammatory pain. RECOMMENDATIONS FOR FOLLOW-UP: Please follow up with Dr. Rico on 09/09 @ 11am. Will need weekly CBC, CMP, ESR, CPK while on antibiotics. Will likely need repeat imaging with thoracic spine MRI after completion of antibiotics Please schedule a follow up appointment with Dr. Peralta in [facility] infectious disease clinic in 2-3 weeks. Please schedule a follow up appointment with Dr. Blackburn in ortho clinic in 4 weeks. OTHER INSTRUCTIONS: Do not drive or operate machinery after taking home narcotics for pain. Seek medical attention if you have: * temperature above 101 * chest pain or trouble breathing * abdominal pain, nausea, vomiting * diarrhea, dark stools or bloody stools * any unanswered questions or concerns Call 911 if symptoms are severe. Please take good care of yourself. Call if you have any questions or problems. You can reach a [facility] hospitalist on duty at [facility] 24 hours a day by calling [phone]. Yris Melchor [facility] hospitalist group Pending Studies at Discharge: Yes Studies:: Will need weekly CBC, CMP, ESR, CPK while on antibiotics. Will likely need repeat imaging with thoracic spine MRI after completion of antibiotics in 4 weeks. Stand-Alone Forms: My [facility] Medications and DC Order Prescriptions: New daptomycin 500 mg recon soln 400 mg IV DAILY 30 Days Qty: 30 RF: 0 ertapenem 1 gram recon soln 1 gm IV DAILY Qty: 30 RF: 0 meloxicam 15 mg tablet 15 mg PO DAILY PRN (Reason: pain) Qty: 30 RF: 0 hydrocodone-acetaminophen 10-325 mg tablet 1 tab PO Q6H PRN (Reason: Pain) Qty: 10 RF: 0 Continued docusate sodium [Colace] 100 mg capsule 100 mg PO BID PRN (Reason: Constipation) RF: 0 ranitidine HCl 150 mg tablet 150 mg PO BID PRN (Reason: Heartburn) RF: 0 ezetimibe 10 mg tablet 10 mg PO QAM RF: 0 ipratropium-albuterol 0.5 mg-3 mg(2.5 mg base)/3 mL solution for nebulization 3 ml inhalation UD PRN (Reason: Shortness Of Breath Or Wheezing) RF: 0 lidocaine 5 % adhesive patch,medicated 1 patch transdermal DAILY PRN (Reason: Pain) RF: 0 fluticasone propionate 50 mcg/actuation spray,suspension 2 spray intranasal DAILY RF: 0 multivitamin 1 tab PO QAM RF: 0 Culturelle 10 billion cell Capsule 1 cap PO DAILY RF: 0 lisinopril 20 mg Tablet 20 mg PO QAM RF: 0 acyclovir 400 mg Tablet 400 mg PO TID PRN (Reason: Cold Sore(s)) RF: 0 aspirin [Aspir-81] 81 mg Tablet,Delayed Release (Dr/Ec) 81 mg PO QAM RF: 0 acetaminophen [Tylenol Extra Strength] 500 mg Tablet 1,000 mg PO Q6H PRN (Reason: Pain) RF: 0 levothyroxine 100 mcg Tablet 100 mcg PO QAM RF: 0 baclofen 10 mg Tablet 10 mg PO TID PRN (Reason: Muscle Spasm) RF: 0 furosemide [Lasix] 20 mg Tablet 20 mg PO DAILY PRN (Reason: Edema) RF: 0 zolpidem 10 mg Tablet 10 mg PO HS PRN (Reason: Sleep) RF: 0 albuterol sulfate [Ventolin HFA] 90 mcg/actuation Hfa Aerosol Inhaler 2 puff INHALATION Q4H PRN (Reason: Wheezing) RF: 0 cholecalciferol (vitamin D3) [Vitamin D3] 1,000 unit Capsule 1,000 units PO QAM RF: 0 Discharge Orders: Discharge Order (Routine); Ordered 09/05/19 Ordered By: Yris Morley Admission Data Admit Date/Time: 09/02/19 19:00 Attending Provider: Nohelia Lang Admit Provider: Micaela Zuniga Primary Care Provider: Cj Rico Other Providers: Micaela Zuniga ; Cj Blackburn ; Ana Peralta Other Interventions: Discharge Summary Assessment (RN) Last Done: 09/05/19 15:26
[2019-09-06] MEDS ORDERED: VANCOMYCIN TROUGH ONE (11:30)
== END 2019-09-05 16:00 | disposition home or self-care (01) | DRG 541 ==
LOC: ED 15:59 → SUATTDRO 19:00 → 3N 19:00

== ENCOUNTER 2021-04-11 11:19 | Inpatient (IN) ==
[2021-04-11] MEDS ORDERED: ONDANSETRON INJ 2 MG/ML 2 ML VIAL IV STA ×2 (12:10→16:33)
[2021-04-11 12:16] LABS: Basophils # (auto) 0.03 K/uL (0-0.2); Basophils % (auto) 0.4 %; Eosinophils # (auto) 0.28 K/uL (0-0.5); Eosinophils % (auto) 3.3 %; Hematocrit (blood only) 43.1 % (37-47); Hemoglobin 15.2 g/dL (12.0-16.0); Immature Granulocytes # (auto) 0.03 K/uL (0.00-0.02); Immature Granulocytes % (auto) 0.4 %; Lymphocytes # (auto) 1.62 K/uL (1.2-3.4); Lymphocytes % (auto) 19.3 %; Mean Corpuscular Hemoglobin 31.9 pg (25-34); Mean Corpuscular Hgb Conc 35.3 g/dL (32-36); Mean Corpuscular Volume 90.4 fL (80-100); Mean Platelet Volume 9.1 fL (7.4-10.4); Monocytes # (auto) 0.92 K/uL (0.11-0.59); Monocytes % (auto) 10.9 %; Neutrophils # (auto) 5.53 K/uL (1.4-6.5); Neutrophils % (auto) 65.7 %; Platelet Count 301 K/uL (130-400); RDW Coefficient of Variation 12.6 % (11.5-14.5); RDW Standard Deviation 41.6 fL (36.4-46.3); Red Blood Count 4.77 M/uL (4.2-5.4); White Blood Count 8.41 K/uL (4.8-10.8)
[2021-04-11] MEDS: HYDROmorphone INJ 0.5 MG/0.5 ML SYR IV PRN ×6 (12:16→19:40)
[2021-04-11 12:32] LABS: Albumin Level 3.8 gm/dl (3.4-5.0); BUN Creatinine Ratio 24.5 (10-20); C Reactive Protein 2.25 mg/dl (0-0.29); Calcium 9.1 mg/dl (8.5-10.1); Creatinine Clr Calc Pharmacy 72.1 ml/min; Est GFR (African American) 90.5 ml/min; Est GFR (Non-African American) 78.1 ml/min; Potassium 4.4 mmol/L (3.5-5.1)
[2021-04-11 12:35] LABS: Albumin Globulin Ratio 1.1 (0.9-2); Bilirubin,Total 0.6 mg/dl (0.2-1); Globulin 3.6 gm/dl (2.5-4.0); Total Protein 7.4 gm/dl (6.4-8.2)
[2021-04-11] MEDS ORDERED: GADOBUTROL 65ML VIAL IV ONE (15:53)
--- NOTE | 2021-04-11 16:11 | Magnetic Resonance Report ---
MRI OF THE LUMBAR SPINE WITH AND WITHOUT CONTRAST CLINICAL HISTORY: severe low back pain, hx of osteomyelitis COMPARISON STUDY: Lumbar spine MRI November 06, 2018. TECHNIQUE: Utilizing a 1.5 Ro magnet and dedicated coil, multiplanar, multiecho imaging of the [facility] spine was performed before and after uneventful IV administration of 9 mL of Gadavist. FINDINGS: For purposes of numbering on this exam, the L5-S1 disc space is assigned to axial image 24 of 28. Thi s exam is moderately compromised by motion artifact. 7 mm of anterolisthesis of L4 and L5 is unchange d. There are postoperative findings consistent with L5-S1 discectomy with right hemilaminectomy at th is level with right-sided pedicle screws at the L5 and S1 levels. Postoperative appearance is similar to MRI November 06, 2018. No intracanalicular mass or fluid collection is identified. Conus terminat es at the T12-L1 level. Several hemangiomas are noted, the largest of which is within the L2 vertebra l body. There is no suspicious marrow replacement. Note is made of transverse hypointense signal with in the superior aspect of the T12 vertebral body which extends to the endplate. There is mild vertebr al body height loss without retropulsion. There is mild prevertebral edema. No additional fractures a re identified. There is no evidence for discitis or osteomyelitis. The central canal and neural arjun en are suboptimally assessed on this exam. L1-2: There is disc bulge with facet arthrosis. Central canal is patent. Neural foramen are patent. L2-3: Central canal and neural foramen are patent. L3-4: There is facet arthrosis with ligamentous hypertrophy. There is no significant central canal or lateral recess narrowing. There is mild narrowing of both neural foramen. L4-5: Grade I anterolisthesis is unchanged. There is facet arthrosis with ligamentous hypertrophy. Fi ndings result in moderate narrowing of the central canal and moderate to severe left and moderate rig ht neural foraminal stenosis. L5-S1: Central canal and neural foramen are patent. IMPRESSION: 1. Acute compression fracture of the superior endplate of T12 with mild loss of vertebral body height and prevertebral edema. No retropulsion. No epidural hematoma. 2. No acute lumbar spine fracture. No evidence for discitis or osteomyelitis within the lumbar spine. 3. Status post L5-S1 discectomy with right hemilaminectomy and right-sided pedicle screw fusion. Unch anged postoperative appearance. 4. No change in grade I anterolisthesis L4 on L5 with uncovering of the disc and ligamentous hypertro phy and facet arthrosis which result in moderate central canal and right neural foraminal stenosis an d moderate to severe left neural foraminal stenosis. 5. Exam compromised by motion artifact. ACT 112: Negative or not required by law. Electronically signed by: Arsen Dominguez M.D. 04/11/2021 4:09 PM
--- NOTE | 2021-04-11 17:11 | History & Physical Report ---
Date of Service April 11, 2021 Assessment & Plan (1) Compression fracture of T12 vertebra: Presented with intractable back pain, history of remote fall several months ago, MRI shows T12 compression fracture Admit to medical floor, 2 pain control, PT OT Spinal orthopedics consulted Hypothyroidism: Continue outpatient levothyroxine Full code DVT prophylaxis, subcu Lovenox, will hold pharmacological anticoagulation if there is anticipation for spinal surgery during this admission (2) Intractable back pain: History of Present Illness Chief Complaint: Back pain Primary Care Provider: Cj Rico MD This is a 58-year-old female to the ER with chronic low back pain/neck pain with radiation to shoulder and arm, Sustained a fall, on December this year, slipped and fell down 5 steps did not had dizzy spell or lightheadedness after that fall The past several days the patient noted significant back and shoulder pain, unable to get up from the chair, limiting her movements MRI shows compression fracture of T12 vertebrae Patient required significant pain medication in the ER, Unable to be discharged home with p.o. pain medications. Admit to medical surgical floor, continue pain control, spinal orthopedics consulted Allergies Allergy/AdvReac Type Severity Reaction Status Date / Time losartan Allergy Severe SWELLING Verified 04/11/21 13:52 OF FACE, LIPS & TONGUE Penicillins Allergy Severe SWELLING Verified 04/11/21 13:52 OF FACE, LIPS & TONGUE fentanyl Allergy Intermediate itching Verified 04/11/21 13:52 oxycodone Allergy Mild Itching Unverified 04/11/21 13:52 tramadol AdvReac Severe Hallucinati Verified 04/11/21 13:52 ons Sulfa (Sulfonamide AdvReac Intermediate URNIARY Verified 04/11/21 13:52 Antibiotics) FREQUENCY sulfamethoxazole AdvReac Intermediate URNIARY Verified 04/11/21 13:52 FREQUENCY metronidazole AdvReac Mild STOMACH Verified 04/11/21 13:52 PAIN trimethoprim AdvReac Mild URINARY Verified 04/11/21 13:52 FREQUENCY Home Medications Medication Instructions Recorded Confirmed Type acetaminophen [Tylenol Extra 1,000 mg PO Q6H PRN 08/22/18 04/11/21 History Strength] acyclovir 400 mg PO TID PRN 08/22/18 04/11/21 History albuterol sulfate [Ventolin HFA] 2 puff INHALATION Q4H PRN 08/22/18 04/11/21 History baclofen 10 mg PO TID PRN 08/22/18 04/11/21 History levothyroxine 100 mcg PO QAM 08/22/18 04/11/21 History zolpidem 10 mg PO HS 08/22/18 04/11/21 History docusate sodium [Colace] 100 mg PO BID PRN 09/09/18 04/11/21 History Culturelle 1 cap PO QAM 09/02/19 04/11/21 History ipratropium-albuterol 3 ml INHALATION UD PRN 09/02/19 04/11/21 History hydrocodone-acetaminophen 1 tab PO Q6H PRN #10 tab 09/05/19 04/11/21 Rx hydroxyzine HCl 25 mg PO TID PRN 04/11/21 04/11/21 History indapamide 1.25 mg PO DAILY 04/11/21 04/11/21 History Past Med/Surg History Medical History Abdominal hernia no surgery Asthma inhalers prn Atrial fibrillation and flutter S/P ablation (successful) follows with Dr Romano. Bronchitis hx Chronic back pain Chronic obstructive pulmonary disease mild GERD (gastroesophageal reflux disease) High blood pressure HLD (hyperlipidemia) Hx of Clostridium difficile infection APPROX 5 YRS AGO Hx of deep venous thrombosis ~2018 Hx of discitis treated at [facility] (2019) Hypothyroidism Irritable colon (Unknown) Migraine hx Osteoarthritis Peripheral neuropathy Pneumonia hx Prediabetes RECENT NEW SCRIPT FOR METFORMIN Pseudogout Pulmonary embolism hx of 2006 Sleep apnea NO MACHINE Surgical History History of adenoidectomy History of anesthesia reaction EXTREMELY SLOW TO WAKE UP (COLON RESECTION) History of appendectomy History of bunionectomy RT FOOT History of carpal tunnel release RT History of colonoscopy History of dilatation and curettage History of esophagogastroduodenoscopy (EGD) History of right cataract surgery SEP 2020 History of tonsillectomy History of tooth extraction History of total abdominal hysterectomy and bilateral salpingo-oophorectomy Hx of fusion of cervical spine (at least 3 levels fused together) Full ROM S/P ablation of atrial fibrillation ~2014 S/P colon resection chronic diverticulits S/P lumbar fusion Family History Mother Family history of esophageal cancer Hearing loss Father Hearing loss Brother Hearing loss Other Cancer Gallbladder disease Heart disease Hypertension Lung disease No family history of adverse response to anesthesia No family history of bleeding disorder Stroke Social History Smoking Status: Never smoker Second Hand Exposure: No; Do You Dip or Chew Tobacco: No; Tobacco Cessation Education Requested by Patient: No Hx Alcohol Use: Yes Alcohol type: wine Hx Substance Use: No Preferred Language: Persian Communication Ability: Effective Alignment Specialist Required: No Beliefs That Will Affect Care: None Current Living Situation: Alone current occupational status: retired Other Information That Helps Us Care for You: No Feels Safe at Home: Yes Safety Concerns: Feels Safe At This Time Assistive Devices: None Review of Systems Review of Systems: All systems reviewed & are unremarkable except as noted in Subjective Physical Exam Physical Exam: Physical exam: General: No acute distress, alert awake oriented x3 HEENT: PERRLA, EOMI, Heart: Regular S1-S2, no carotid bruit, no JVD, no lower extremity edema Lungs: Clear to auscultate, no wheeze or rales Abdomen: Soft nontender, no organomegaly Extremity: No cyanosis, no deformity, low back pain, with minimal movement on the shoulder secondary to pain and discomfort Neuro: No focal neurological deficit normal speech, Psych: Alert awake oriented x3, normal affect Results & Data Results & Data ([facility]) Vital Signs (Past 12 Hours) Vital Signs Temp Pulse Resp BP Pulse Ox 04/11/21 16:15 93 04/11/21 14:31 91 H 18 149/99 H 94 04/11/21 14:30 92 H 17 92 04/11/21 14:20 93 H 15 94 04/11/21 14:10 90 19 94 04/11/21 14:01 89 21 142/110 H 95 04/11/21 14:00 90 23 95 04/11/21 13:50 92 H 13 95 04/11/21 13:40 94 H 17 95 04/11/21 13:30 89 17 156/96 H 94 04/11/21 13:20 91 H 15 92 04/11/21 13:10 91 H 13 92 04/11/21 13:00 90 19 142/98 H 92 04/11/21 12:50 93 H 20 93 04/11/21 12:40 95 H 10 L 92 04/11/21 12:31 94 H 23 132/84 92 04/11/21 12:30 92 H 17 92 04/11/21 12:20 96 H 20 133/100 93 04/11/21 12:14 94 H 16 04/11/21 11:22 36.1 C L 100 H 18 145/77 H 95
--- NOTE | 2021-04-11 17:15 | Emergency Department Note ---
Impression & Plan Compression fracture of T12 vertebra, Intractable back pain ED Provider Note INFORMANT: Patient ED PROVIDER(S): Cj Estrada MD CHIEF COMPLAINT: Back pain PLAN: Disposition: Admitted Condition: Good Outpatient prescription management: none Referral: None MEDICAL DECISION MAKING: Patient presented to the emergency department because of back pain. She has a history of discitis. An IV was established. Blood work was obtained. She was given IV Dilaudid and Zofran. She required multiple doses of IV Dilaudid for symptom control. She had an unremarkable CBC, ESR and chemistry panel. Her CRP was mildly elevated. MRI was performed. The patient was found to have a T12 compression fracture. No discitis or osteomyelitis noted. No cord compromise. The patient was reassessed. She was still having significant pain and did not feel comfortable going home. A urinalysis was ordered. Covid testing ordered. [facility]. The patient was evaluated further management. Triage Nursing notes reviewed and agree them. Vital Signs: reviewed and remarkable for no significant abnormalities Differential diagnosis: Musculoskeletal, disc herniation, fracture, metastatic disease, cord compression, discitis, sciatica, cauda equina, infection, aortic disease, renal colic, gastrointestinal, as well as other pathologies. Diagnostics interpreted by me: ECG: none Cardiac Monitoring: Cardiac monitoring ordered by me: The patient was placed on continuous cardiac monitoring and observed. It revealed a normal sinus rhythm at 91 beats per minute without ectopy or evidence of dysrhythmia. Imaging studies: MRI reveals a T12 compression fracture. No discitis or osteomyelitis. HPI: The patient is a 66 year old female who presents to the Emergency Room with complaints of back pain. This started 2 days ago and is worsening. The patient also notes the following associated symptoms, one episode of urinary incontinence. The patient has found no relieving factors. Current pain is rated as 8/10. Patient notes a history of discitis as well as compression fracture. She denies any trauma. Pt denies LOC, headache, fevers, chills, diaphoresis, visual changes, neck pain, chest pain, breathing difficulties, nausea, vomiting, abdominal pain, melena, hematochezia, numbness, weakness, lymphadenopathy, rash, or other complaints. ROS: See above HPI for pertinent positives & negatives. A total of 10 systems reviewed and were otherwise negative. PAST MEDICAL HISTORY:See Below , discitis PAST SURGICAL HISTORY:See Below, lumbar fusion FAMILY HISTORY:See Below SOCIAL HISTORY:See Below, non-smoker HOME MEDICATIONS:See Below ALLERGIES:See Below VITALS:See Below PHYSICAL EXAMINATION: GENERAL: Awake, alert, very uncomfortable-appearing, in mild distress HENT: Normocephalic, atraumatic. Oropharynx unremarkable. EYES: Normal conjunctiva. Sclera non-icteric. NECK: Inspection normal. Non-tender. Supple. No nuchal rigidity. FROM. No masses. RESPIRATORY: Clear to auscultation. No wheezes. No rales. Normal respiratory effort. CARDIAC: Normal rate. Normal rhythm. No murmurs. No rubs. Extremities warm and well perfused. Pulses equal. No JVD. GI: Soft, non-distended. No tenderness to palpation. No rebound or guarding. No masses. RECTAL: Deferred. MUSCULOSKELETAL: Atraumatic. Chest examination reveals no tenderness. The back is symmetrical on inspection without obvious abnormality. There is no CVA tenderness to palpation. Mild upper lumbar midline tenderness. No joint edema. LOWER EXTREMITIES: Calves are equal size bilaterally and non-tender. No edema. No discoloration. NEURO: Normal sensorium. No sensory or motor deficits noted. No saddle anesthesia. SKIN: No rash or jaundice noted. Cj Estrada MD Past Med/Surg History Medical History Abdominal hernia no surgery Asthma inhalers prn Atrial fibrillation and flutter S/P ablation (successful) follows with Dr Romano. Bronchitis hx Chronic back pain Chronic obstructive pulmonary disease mild GERD (gastroesophageal reflux disease) High blood pressure HLD (hyperlipidemia) Hx of Clostridium difficile infection APPROX 5 YRS AGO Hx of deep venous thrombosis ~2019 Hx of discitis treated at [facility] (2019) Hypothyroidism Irritable colon (Unknown) Migraine hx Osteoarthritis Peripheral neuropathy Pneumonia hx Prediabetes RECENT NEW SCRIPT FOR METFORMIN Pseudogout Pulmonary embolism hx of 2006 Sleep apnea NO MACHINE Surgical History History of adenoidectomy History of anesthesia reaction EXTREMELY SLOW TO WAKE UP (COLON RESECTION) History of appendectomy History of bunionectomy RT FOOT History of carpal tunnel release RT History of colonoscopy History of dilatation and curettage History of esophagogastroduodenoscopy (EGD) History of right cataract surgery SEP 2020 History of tonsillectomy History of tooth extraction History of total abdominal hysterectomy and bilateral salpingo-oophorectomy Hx of fusion of cervical spine (at least 3 levels fused together) Full ROM S/P ablation of atrial fibrillation ~2014 S/P colon resection chronic diverticulits S/P lumbar fusion Family History Mother Family history of esophageal cancer Hearing loss Father Hearing loss Brother Hearing loss Other Cancer Gallbladder disease Heart disease Hypertension Lung disease No family history of adverse response to anesthesia No family history of bleeding disorder Stroke Social History Smoking Status: Former smoker Second Hand Exposure: Yes; Hx Alcohol Use: Yes Alcohol type: wine Hx Substance Use: No Preferred Language: Czech Communication Ability: Effective Food Safety Scientist Required: No Beliefs That Will Affect Care: None Current Living Situation: Alone current occupational status: retired Feels Safe at Home: Yes Assistive Devices: Glasses Allergies Allergies Allergy/AdvReac Type Severity Reaction Status Date / Time losartan Allergy Severe SWELLING Verified 04/11/21 13:52 OF FACE, LIPS & TONGUE Penicillins Allergy Severe SWELLING Verified 04/11/21 13:52 OF FACE, LIPS & TONGUE fentanyl Allergy Intermediate itching Verified 04/11/21 13:52 oxycodone Allergy Mild Itching Unverified 04/11/21 13:52 tramadol AdvReac Severe Hallucinati Verified 04/11/21 13:52 ons Sulfa (Sulfonamide AdvReac Intermediate URNIARY Verified 04/11/21 13:52 Antibiotics) FREQUENCY sulfamethoxazole AdvReac Intermediate URNIARY Verified 04/11/21 13:52 FREQUENCY metronidazole AdvReac Mild STOMACH Verified 04/11/21 13:52 PAIN trimethoprim AdvReac Mild URINARY Verified 04/11/21 13:52 FREQUENCY Home Meds Home Medications Medication Instructions Recorded Confirmed acetaminophen [Tylenol Extra 1,000 mg PO Q6H PRN 08/22/18 04/11/21 Strength] acyclovir 400 mg PO TID PRN 08/22/18 04/11/21 albuterol sulfate [Ventolin HFA] 2 puff INHALATION Q4H PRN 08/22/18 04/11/21 baclofen 10 mg PO TID PRN 08/22/18 04/11/21 levothyroxine 100 mcg PO QAM 08/22/18 04/11/21 zolpidem 10 mg PO HS 08/22/18 04/11/21 docusate sodium [Colace] 100 mg PO BID PRN 09/09/18 04/11/21 Culturelle 1 cap PO QAM 09/02/19 04/11/21 ipratropium-albuterol 3 ml INHALATION UD PRN 09/02/19 04/11/21 hydroxyzine HCl 25 mg PO TID PRN 04/11/21 04/11/21 indapamide 1.25 mg PO DAILY 04/11/21 04/11/21 Previous Rx's Medication Instructions Recorded hydrocodone-acetaminophen 1 tab PO Q6H PRN #10 tab 09/05/19 Results & Data (ED) Vital Signs Vital Signs - 24 hr 04/11/21 11:22 04/11/21 12:09 04/11/21 12:14 Temperature 36.1 C L Temperature Source Skin Pulse Rate 100 H 94 H Pulse Rate from SpO2 Sensor Respiratory Rate 18 16 Respiratory Effort / Characteristics Non-Labored Spontaneous Respiratory Depth Normal Blood Pressure 145/77 H Blood Pressure Mean 99 Blood Pressure Position Sitting Pulse Oximetry 95 Oxygen Delivery Method Room Air Room Air Room Air Sepsis Recent Fever Within 48 Hours No Sepsis New/Unexplained Change in Mental Status N/A Sepsis Action Taken by Nursing No Action Required 04/11/21 12:20 04/11/21 12:30 04/11/21 12:31 Temperature Temperature Source Pulse Rate 96 H 92 H 94 H Pulse Rate from SpO2 Sensor 96 H 93 H 94 H Respiratory Rate 20 17 23 Respiratory Effort / Characteristics Respiratory Depth Blood Pressure 133/100 132/84 Blood Pressure Mean 111 100 Blood Pressure Position Pulse Oximetry 93 92 92 Oxygen Delivery Method Room Air Room Air Room Air Sepsis Recent Fever Within 48 Hours Sepsis New/Unexplained Change in Mental Status Sepsis Action Taken by Nursing 04/11/21 12:40 04/11/21 12:50 04/11/21 13:00 Temperature Temperature Source Pulse Rate 95 H 93 H 90 Pulse Rate from SpO2 Sensor 96 H 93 H 92 H Respiratory Rate 10 L 20 19 Respiratory Effort / Characteristics Respiratory Depth Blood Pressure 142/98 H Blood Pressure Mean 112 Blood Pressure Position Pulse Oximetry 92 93 92 Oxygen Delivery Method Room Air Room Air Room Air Sepsis Recent Fever Within 48 Hours Sepsis New/Unexplained Change in Mental Status Sepsis Action Taken by Nursing 04/11/21 13:10 04/11/21 13:20 04/11/21 13:30 Temperature Temperature Source Pulse Rate 91 H 91 H 89 Pulse Rate from SpO2 Sensor 91 H 92 H 87 Respiratory Rate 13 15 17 Respiratory Effort / Characteristics Respiratory Depth Blood Pressure 156/96 H Blood Pressure Mean 116 Blood Pressure Position Pulse Oximetry 92 92 94 Oxygen Delivery Method Room Air Room Air Room Air Sepsis Recent Fever Within 48 Hours Sepsis New/Unexplained Change in Mental Status Sepsis Action Taken by Nursing 04/11/21 13:40 04/11/21 13:50 04/11/21 14:00 Temperature Temperature Source Pulse Rate 94 H 92 H 90 Pulse Rate from SpO2 Sensor 92 H 92 H 90 Respiratory Rate 17 13 23 Respiratory Effort / Characteristics Respiratory Depth Blood Pressure Blood Pressure Mean Blood Pressure Position Pulse Oximetry 95 95 95 Oxygen Delivery Method Room Air Room Air Room Air Sepsis Recent Fever Within 48 Hours Sepsis New/Unexplained Change in Mental Status Sepsis Action Taken by Nursing 04/11/21 14:01 04/11/21 14:10 04/11/21 14:20 Temperature Temperature Source Pulse Rate 89 90 93 H Pulse Rate from SpO2 Sensor 89 89 93 H Respiratory Rate 21 19 15 Respiratory Effort / Characteristics Respiratory Depth Blood Pressure 142/110 H Blood Pressure Mean 120 Blood Pressure Position Pulse Oximetry 95 94 94 Oxygen Delivery Method Room Air Room Air Room Air Sepsis Recent Fever Within 48 Hours Sepsis New/Unexplained Change in Mental Status Sepsis Action Taken by Nursing 04/11/21 14:30 04/11/21 14:31 04/11/21 16:07 Temperature Temperature Source Pulse Rate 92 H 91 H Pulse Rate from SpO2 Sensor 91 H 91 H 104 H Respiratory Rate 17 18 Respiratory Effort / Characteristics Respiratory Depth Blood Pressure 149/99 H Blood Pressure Mean 115 Blood Pressure Position Pulse Oximetry 92 94 Oxygen Delivery Method Room Air Room Air Room Air Sepsis Recent Fever Within 48 Hours Sepsis New/Unexplained Change in Mental Status Sepsis Action Taken by Nursing 04/11/21 16:15 Temperature Temperature Source Pulse Rate Pulse Rate from SpO2 Sensor 109 H Respiratory Rate Respiratory Effort / Characteristics Respiratory Depth Blood Pressure Blood Pressure Mean Blood Pressure Position Pulse Oximetry 93 Oxygen Delivery Method Room Air Sepsis Recent Fever Within 48 Hours Sepsis New/Unexplained Change in Mental Status Sepsis Action Taken by Nursing Laboratory Data Result diagrams: 04/11/21 12:06 04/11/21 12:06 Lab Results 04/11/21 04/11/21 04/11/21 Range/Units 12:06 12:06 12:06 WBC 8.41 (4.8-10.8) K/uL RBC 4.77 (4.2-5.4) M/uL Hgb 15.2 (12.0-16.0) g/dL Hct 43.1 (37-47) % MCV 90.4 (80-100) fL MCH 31.9 (25-34) pg MCHC 35.3 (32-36) g/dL RDW Std Deviation 41.6 (36.4-46.3) fL RDW Coeff of Viky 12.6 (11.5-14.5) % Plt Count 301 (130-400) K/uL MPV 9.1 (7.4-10.4) fL Immature Gran % (Auto) 0.4 % Neut % (Auto) 65.7 % Lymph % (Auto) 19.3 % Mcleod % (Auto) 10.9 % Eos % (Auto) 3.3 % Baso % (Auto) 0.4 % Neut # (Auto) 5.53 (1.4-6.5) K/uL Lymph # (Auto) 1.62 (1.2-3.4) K/uL Mcleod # (Auto) 0.92 H (0.11-0.59) K/uL Eos # (Auto) 0.28 (0-0.5) K/uL Baso # (Auto) 0.03 (0-0.2) K/uL Immature Gran # (Auto) 0.03 H (0.00-0.02) K/uL ESR 26 (0-30) mm/hr Sodium 136 (136-145) mmol/L Potassium 4.4 (3.5-5.1) mmol/L Chloride 105 (98-107) mmol/L Carbon Dioxide 23 (21-32) mmol/L Anion Gap 8.0 (3-11) BUN 19 H (7-18) mg/dl Creatinine 0.78 (0.6-1.2) mg/dl Est Cr Clr Drug Dosing 72.1 ml/min Est GFR ( Amer) 90.5 ml/min Est GFR (Non-Af Amer) 78.1 ml/min BUN/Creatinine Ratio 24.5 H (10-20) Glucose 117 H (70-99) mg/dl Calcium 9.1 (8.5-10.1) mg/dl Total Bilirubin 0.6 (0.2-1) mg/dl AST 20 (15-37) U/L ALT 30 (12-78) U/L Alkaline Phosphatase 89 (45-117) U/L C-Reactive Protein 2.25 H (0-0.29) mg/dl Total Protein 7.4 (6.4-8.2) gm/dl Albumin 3.8 (3.4-5.0) gm/dl Globulin 3.6 (2.5-4.0) gm/dl Albumin/Globulin Ratio 1.1 (0.9-2) Administered Medications Hydromorphone HCl (Hydromorphone Inj 0.5 Mg/0.5 Ml Syr) 0.5 mg IV Q15M PRN PRN Reason: Pain Stop: 04/25/21 12:09 Last Admin: 04/11/21 15:55 Dose: 0.5 mg Documented by: [id number] Admin: 04/11/21 15:22 Dose: 0.5 mg Documented by: [id number] Admin: 04/11/21 14:54 Dose: 0.5 mg Documented by: [id number] Admin: 04/11/21 13:41 Dose: 0.5 mg Documented by: [id number] Admin: 04/11/21 12:16 Dose: 0.5 mg Documented by: [id number] Discontinued Medications Gadobutrol (Gadobutrol 65ml Vial) 9 ml IV ONCE ONE Stop: 04/11/21 15:54 Last Admin: 04/11/21 15:54 Dose: 9 ml Documented by: [id number] Ondansetron HCl (Ondansetron Inj 2 Mg/Ml 2 Ml Vial) 4 mg IV NOW STA Stop: 04/11/21 12:11 Last Admin: 04/11/21 12:16 Dose: 4 mg Documented by: [id number] Ondansetron HCl (Ondansetron Inj 2 Mg/Ml 2 Ml Vial) 4 mg IV NOW STA Stop: 04/11/21 16:34 Last Admin: 04/11/21 17:08 Dose: 4 mg Documented by: [id number] Imaging Data Radiologist's Impression: Lumbar Spine MRI 04/11/21 12:10 MRI OF THE LUMBAR SPINE WITH AND WITHOUT CONTRAST CLINICAL HISTORY: severe low back pain, hx of osteomyelitis COMPARISON STUDY: Lumbar spine MRI November 06, 2018. TECHNIQUE: Utilizing a 1.5 Ro magnet and dedicated coil, multiplanar, multiecho imaging of the lumbar spine was performed before and after uneventful IV administration of 9 mL of Gadavist. FINDINGS: For purposes of numbering on this exam, the L5-S1 disc space is assigned to axial image 24 of 28. This exam is moderately compromised by motion artifact. 7 mm of anterolisthesis of L4 and L5 is unchanged. There are postoperative findi ngs consistent with L5-S1 discectomy with right hemilaminectomy at this level with right-sided pedicle screws at the L5 and S1 levels. Postoperative appearance is similar to MRI November 06, 2018. No intracanalicular mass or fluid collection is identified. Conus terminates at the T12-L1 level. Several hemangiomas are noted, the largest of which is within the L2 vertebral body. There is no suspicious marrow replacement. Note is made of transverse hypointense signal within the superior aspect of the T12 vertebral body which extends to the endplate. There is mild vertebral body height loss without retropulsion. There is mild prevertebral edema. No additional fractures are identified. There is no evidence for discitis or osteomyelitis. The central canal and neural foramen are suboptimally assessed on this exam. L1-2: There is disc bulge with facet arthrosis. Central canal is patent. Neural foramen are patent. L2-3: Central canal and neural foramen are patent. L3-4: There is facet arthrosis with ligamentous hypertrophy. There is no significant central canal or lateral recess narrowing. There is mild narrowing of both neural foramen. L4-5: Grade I anterolisthesis is unchanged. There is facet arthrosis with ligamentous hypertrophy. Findings result in moderate narrowing of the central canal and moderate to severe left and moderate right neural foraminal stenosis. L5-S1: Central canal and neural foramen are patent. IMPRESSION: 1. Acute compression fracture of the superior endplate of T12 with mild loss of vertebral body height and prevertebral edema. No retropulsion. No epidural hematoma. 2. No acute lumbar spine fracture. No evidence for discitis or osteomyelitis within the lumbar spine. 3. Status post L5-S1 discectomy with right hemilaminectomy and right-sided pedicle screw fusion. Unchanged postoperative appearance. 4. No change in grade I anterolisthesis L4 on L5 with uncovering of the disc and ligamentous hypertrophy and facet arthrosis which result in moderate central canal and right neural foraminal stenosis and moderate to severe left neural foraminal stenosis. 5. Exam compromised by motion artifact. ACT 112: Negative or not required by law. Electronically signed by: Arsen Dominguez M.D. 04/11/2021 4:09 PM Discharge Plan Visit Data Chief Complaint: Back Injury/Pain Stated Complaint: LOWER BACK PAIN ED Provider: Cj Estrada Discharge Problem: Compression fracture of T12 vertebra, Intractable back pain Forms Stand Alone Forms: [facility] Prescriptions Prescriptions: No Action docusate sodium [Colace] 100 mg capsule 100 mg PO BID PRN (Reason: Constipation) RF: 0 ipratropium-albuterol 0.5 mg-3 mg(2.5 mg base)/3 mL solution for nebulization 3 ml inhalation UD PRN (Reason: Shortness Of Breath Or Wheezing) RF: 0 Culturelle 10 billion cell Capsule 1 cap PO QAM RF: 0 hydrocodone-acetaminophen 10-325 mg tablet 1 tab PO Q6H PRN (Reason: Pain) Qty: 10 RF: 0 acyclovir 400 mg Tablet 400 mg PO TID PRN (Reason: Cold Sore(s)) RF: 0 acetaminophen [Tylenol Extra Strength] 500 mg Tablet 1,000 mg PO Q6H PRN (Reason: Pain) RF: 0 levothyroxine 100 mcg Tablet 100 mcg PO QAM RF: 0 baclofen 10 mg Tablet 10 mg PO TID PRN (Reason: Muscle Spasm) RF: 0 zolpidem 10 mg Tablet 10 mg PO HS RF: 0 albuterol sulfate [Ventolin HFA] 90 mcg/actuation Hfa Aerosol Inhaler 2 puff INHALATION Q4H PRN (Reason: Wheezing) RF: 0 indapamide 1.25 mg tablet 1.25 mg PO DAILY RF: 0 hydroxyzine HCl 25 mg tablet 25 mg PO TID PRN (Reason: Itching) RF: 0
[2021-04-11] MEDS ORDERED: hydrOXYzine HCl 25 MG TAB ONE (18:45)
[2021-04-11] MEDS ORDERED: hydrOXYzine HCl 25 MG TAB PO PRN (22:15)
[2021-04-11] MEDS ORDERED: ACETAMINOPHEN 500 MG TAB PO PRN (22:15)
[2021-04-11] MEDS ORDERED: BACLOFEN 10 MG TAB PO PRN (22:15)
[2021-04-11] MEDS ORDERED: ALBUT/IPRATROP 3MG/0.5MG NEB 3 ML VIAL INH PRN (22:15)
[2021-04-11] MEDS ORDERED: DOCUSATE SODIUM 100 MG CAP PO PRN (22:15)
[2021-04-11] MEDS: HYDROmorphone INJ 1 MG/ML SYRINGE IV PRN (22:33)
[2021-04-11 23:49] LABS: Appearance Urine Clear (Clear); Bilirubin Urine Negative (Negative); Blood Urine Trace-lysed (Negative); Color Urine Yellow; Glucose Urine UA Negative (Negative); Ketones Urine Negative (Negative); Leukocyte Esterase Urine Negative (Negative); Nitrite Urine Negative (Negative); Protein Urine Negative (Negative); Urobilinogen Urine Negative (Negative)
[2021-04-12 00:01] LABS: Epithelial Cell Urine 20-30 /lpf (0-5)
[2021-04-12 00:02] LABS: Hyaline Casts Urine 0-5 /lpf (0-5); Mucus Urine Present (None Prsent); RBC Urine 0-4 /hpf (0-4)
[2021-04-12 00:03] LABS: Bacteria Urine Negative (Negative); WBC Urine 0-5 /hpf (0-5)
[2021-04-12] MEDS: ZOLPIDEM TARTRATE 10 MG TAB PO SCH ×2 (00:32→22:32)
[2021-04-12] MEDS: HYDROcodone/ACETAMINOPHEN 10/325 TAB PO PRN ×4 (00:32→22:34)
[2021-04-12] MEDS: ENOXAPARIN INJ 40 MG/0.4 ML SYR SQ SCH ×2 (02:16→13:35)
[2021-04-12] MEDS: LEVOTHYROXINE SODIUM 100 MCG TABLET PO SCH (05:49)
[2021-04-12] MEDS: BACLOFEN 10 MG TAB PO PRN ×4 (07:29→22:33)
[2021-04-12] MEDS: HYDROmorphone INJ 1 MG/ML SYRINGE IV PRN ×2 (09:18→13:32)
[2021-04-12] MEDS: ADVANCED PROBIOTIC 1250 MG CAPSULE PO SCH (09:18)
[2021-04-12] MEDS: INDAPAMIDE 1.25 MG TAB PO SCH (09:18)
[2021-04-12] MEDS ORDERED: ONDANSETRON INJ 2 MG/ML 2 ML VIAL IV PRN (11:29)
[2021-04-12] MEDS ORDERED: hydrOXYzine HCl 25 MG TAB PO PRN (11:30)
--- NOTE | 2021-04-12 13:06 | Orthopedic Consultation ---
Date of Consultation April 12, 2021 Assessment & Plan (1) Compression fracture of T12 vertebra: At this time would like to pain MRI of the left shoulder as well as plain x-rays of the thoracic spine. She may ultimately be a candidate for a kyphoplasty of T12. She has evidence of acute on chronic fracture that may be consistent with a nonunion. Make further conditions upon review of imaging. Patient understands agrees. Present on Admission?: Yes History of Present Illness Reason for Consultation: Patient complaining of left shoulder pain as well as chronic persistent thoracolumbar back pain Attending Physician: Maribel Weiss MD History of Present Illness This is a very pleasant 58-year-old female states she had a significant fall in December of this year. She has had chronic persistent thoracolumbar back pain since. She denies any component of radicular pain or leg pain. She does have a history of lumbar fusion she believes in 2000. Symptoms are quite limiting in nature. She is unable to manage her daily activities at home. Allergies Allergy/AdvReac Type Severity Reaction Status Date / Time losartan Allergy Severe SWELLING Verified 04/11/21 13:52 OF FACE, LIPS & TONGUE Penicillins Allergy Severe SWELLING Verified 04/11/21 13:52 OF FACE, LIPS & TONGUE fentanyl Allergy Intermediate itching Verified 04/11/21 13:52 oxycodone Allergy Mild Itching Unverified 04/11/21 13:52 tramadol AdvReac Severe Hallucinati Verified 04/11/21 13:52 ons Sulfa (Sulfonamide AdvReac Intermediate URNIARY Verified 04/11/21 13:52 Antibiotics) FREQUENCY sulfamethoxazole AdvReac Intermediate URNIARY Verified 04/11/21 13:52 FREQUENCY metronidazole AdvReac Mild STOMACH Verified 04/11/21 13:52 PAIN trimethoprim AdvReac Mild URINARY Verified 04/11/21 13:52 FREQUENCY Home Medications Medication Instructions Recorded Confirmed Type acetaminophen [Tylenol Extra 1,000 mg PO Q6H PRN 08/22/18 04/11/21 History Strength] acyclovir 400 mg PO TID PRN 08/22/18 04/11/21 History albuterol sulfate [Ventolin HFA] 2 puff INHALATION Q4H PRN 08/22/18 04/11/21 Hi story baclofen 10 mg PO TID PRN 08/22/18 04/11/21 History levothyroxine 100 mcg PO QAM 08/22/18 04/11/21 History zolpidem 10 mg PO HS 08/22/18 04/11/21 History docusate sodium [Colace] 100 mg PO BID PRN 09/09/18 04/11/21 History Culturelle 1 cap PO QAM 09/02/19 04/11/21 History ipratropium-albuterol 3 ml INHALATION UD PRN 09/02/19 04/11/21 History hydrocodone-acetaminophen 1 tab PO Q6H PRN #10 tab 09/05/19 04/11/21 Rx hydroxyzine HCl 25 mg PO TID PRN 04/11/21 04/11/21 History indapamide 1.25 mg PO DAILY 04/11/21 04/11/21 History Patient History Medical History Abdominal hernia no surgery Asthma inhalers prn Atrial fibrillation and flutter S/P ablation (successful) follows with Dr Romano. Bronchitis hx Chronic back pain Chronic obstructive pulmonary disease mild GERD (gastroesophageal reflux disease) High blood pressure HLD (hyperlipidemia) Hx of Clostridium difficile infection APPROX 5 YRS AGO Hx of deep venous thrombosis ~2018 Hx of discitis treated at [facility] (2019) Hypothyroidism Irritable colon (Unknown) Migraine hx Osteoarthritis Peripheral neuropathy Pneumonia hx Prediabetes RECENT NEW SCRIPT FOR METFORMIN Pseudogout Pulmonary embolism hx of 2006 Sleep apnea NO MACHINE Surgical History History of adenoidectomy History of anesthesia reaction EXTREMELY SLOW TO WAKE UP (COLON RESECTION) History of appendectomy History of bunionectomy RT FOOT History of carpal tunnel release RT History of colonoscopy History of dilatation and curettage History of esophagogastroduodenoscopy (EGD) History of right cataract surgery SEP 2020 History of tonsillectomy History of tooth extraction History of total abdominal hysterectomy and bilateral salpingo-oophorectomy Hx of fusion of cervical spine (at least 3 levels fused together) Full ROM S/P ablation of atrial fibrillation ~2014 S/P colon resection chronic diverticulits S/P lumbar fusion Family History Mother Family history of esophageal cancer Hearing loss Father Hearing loss Brother Hearing loss Other Cancer Gallbladder disease Heart disease Hypertension Lung disease No family history of adverse response to anesthesia No family history of bleeding disorder Stroke Social History Smoking Status: Never smoker Second Hand Exposure: No; Do You Dip or Chew Tobacco: No; Tobacco Cessation Education Requested by Patient: No Hx Alcohol Use: Yes Alcohol type: wine Hx Substance Use: No Preferred Language: Urdu Communication Ability: Effective Oxyacetylene Cutter Required: No Beliefs That Will Affect Care: None Current Living Situation: Alone current occupational status: retired Other Information That Helps Us Care for You: No Feels Safe at Home: Yes Safety Concerns: Feels Safe At This Time Assistive Devices: None Physical Exam Physical Exam: On exam she is able to sit up at the side of the bed. She is regional strength testing lower extremities. She has significant pain with range of motion of left shoulder compared to the right with breakaway weakness to the deltoids. She has excellent +5-5 grasp biceps triceps. Sensory s ymmetric and intact. She does have pain to palpation and percussion of the thoracolumbar region. There is no abnormal skin skin markings. Results & Data ([facility]) Vital Signs (Past 12 Hours) Vital Signs Temp Pulse Resp BP 04/12/21 08:00 36.5 C 84 16 141/81 H
--- NOTE | 2021-04-12 14:19 | XRay Report ---
XR thoracic spine 2V HISTORY: 66 years-old Female back pain . Acute mid back pain without reported trauma COMPARISON: Chest radiograph 09/02/2019, MRI lumbar spine 09/02/2019, 04/11/2021. TECHNIQUE: 3 views of the thoracic spine FINDINGS: Cervical spinal fusion hardware. Cardiac silhouette is upper limits of normal in size. Mild levoscoli osis of the thoracolumbar junction. Moderate multilevel and vertebral disc space narrowing with degen erative partial bony fusion of the midthoracic spine. Moderate spondylitic spurring and facet arthros is. Acute 20% superior endplate compression deformity of T12. No retropulsion. No additional acute fr acture or subluxation. IMPRESSION: 1. Acute T12 compression deformity without retropulsion. 2. Degenerative changes as above. ACT 112: Negative or not required by law. The above report was generated using voice recognition software. It may contain grammatical, syntax o r spelling errors. Electronically signed by: Sonny King M.D. 04/12/2021 2:18 PM
[2021-04-12] MEDS ORDERED: LORazepam 0.5 MG TAB PO PRN (18:01)
[2021-04-12] MEDS: HYDROmorphone INJ 2 MG/ML SYR/VIAL IV PRN (18:51)
[2021-04-12] MEDS: POLYETHYLENE (MIRALAX) 17 GM PACK PO SCH (22:27)
[2021-04-13] MEDS: LEVOTHYROXINE SODIUM 100 MCG TABLET PO SCH (05:57)
[2021-04-13] MEDS: HYDROmorphone INJ 2 MG/ML SYR/VIAL IV PRN (08:29)
[2021-04-13] MEDS: DOCUSATE SODIUM/SENNA 50/8.6MG TAB PO SCH ×2 (08:37→20:48)
[2021-04-13] MEDS: POLYETHYLENE (MIRALAX) 17 GM PACK PO SCH ×2 (08:37→20:48)
[2021-04-13] MEDS: ADVANCED PROBIOTIC 1250 MG CAPSULE PO SCH (08:37)
[2021-04-13] MEDS: INDAPAMIDE 1.25 MG TAB PO SCH (08:39)
--- NOTE | 2021-04-13 09:35 | Magnetic Resonance Report ---
MR shoulder LT wo con CLINICAL HISTORY: 66 years-old Female with pain. Acute left shoulder pain with limited range of arlene on. COMPARISON: Chest radiograph 11/04/2020 TECHNIQUE: Multiplanar, multi sequence MRI of the left shoulder was performed without intravenous con trast. FINDINGS: Motion degradation limits the study. ROTATOR CUFF: High-grade partial articular sided tear involves the anterior insertional supraspinatu s measuring 6 x 7 mm (image 9 series 11 and image 16 series 9). Moderate associated supraspinatus ten dinosis and interstitial insertional tearing. No tendon retraction or significant muscular atrophy. High-grade partial-thickness interstitial tearing of the posterior insertional fibers of the infraspi natus measures up to approximately 11 mm transverse dimension on image 13 series 11. No tendon retrac tion or significant muscular atrophy. Intact teres minor. Moderate subscapularis tendinosis. No high-grade partial or full-thickness subscapularis tendon tear identified. BICEPS TENDON: The long head biceps tendon is suboptimally visualized secondary to the aforementione d artifact. There is suggested tendinosis without definitive tear identified. LABRUM: Multifocal fraying and irregularity of the labrum with suggested chronic SLAP tear. No defin ite paralabral cyst. GLENOHUMERAL JOINT: Moderate glenohumeral osteoarthritis with low and intermediate grade chondromala [place]. No large joint effusion or intra-articular loose body. Prominent subcortical cystic changes of t he posterior superior glenoid. ACROMIOCLAVICULAR JOINT: Mild to moderate degeneration of the AC joint with capsular hypertrophy and marginal spurring with trace joint effusion. Mild caudal spurring of the acromium. No evidence of os acromiale. Mild subacromial/subdeltoid bursitis. OUTLET SPACES: The suprascapular notch and quadrilateral space are without obstructing or space occu pying lesions. BONE MARROW: No acute fracture or marrow replacing process. SOFT TISSUES: The periarticular soft tissues are otherwise unremarkable. IMPRESSION: 1. Motion degraded exam. 2. Moderate glenohumeral with mild to moderate AC joint osteoarthritis. 3. Tendinosis with partial-thickness insertional tearing of the supraspinatus and infraspinatus as ab ove. No tendon retraction or significant muscular atrophy. 4. Chronic SLAP tear. 5. No acute fracture. ACT 112: Negative or not required by law. The above report was generated using voice recognition software. It may contain grammatical, syntax o r spelling errors. Dictated: 04/13/2021 7:35 AM Transcribed: 04/13/2021 8:22 AM Jessica [id number] [email or web address] Electronically signed by: Sonny King M.D. 04/13/2021 9:34 AM
[2021-04-13] MEDS: BACLOFEN 10 MG TAB PO PRN (10:42)
--- NOTE | 2021-04-13 12:39 | Hospitalist Progress Note ---
Date of Service April 12, 2021 Assessment & Plan (1) Intractable back pain: (2) Compression fracture of T12 vertebra: Presented with worsening intractable back pain History of remote fall several months ago MRI lumbar spine showed acute compression fracture of the superior endplate of T12 with mild loss of vertebral body height and prevertebral edema. No retropulsion. No epidural hematoma. Appreciate input from orthopedics, scheduled for thoracic kyphoplasty surgery today Left Shoulder pain MRI showed Moderate glenohumeral with mild to moderate AC joint osteoarthritis. Tendinosis with partial-thickness insertional tearing of the supraspinatus and infraspinatus as above. Orthopedics following Hypothyroidism Continue outpatient levothyroxine Full code DVT prophylaxis on heparin subq Admission and Anticipated Discharge Date Admission Date: April 11, 2021 Subjective Late entry, patient was seen on 04/12/2021 around 1 PM Pt was seen and examined for follow up of back pain Scheduled for thoracic kyphoplasty surgery today. Patient denies of any chest pain shortness of breath no fever chills Physical Exam Physical Exam: Physical exam: General: No acute distress, alert awake oriented x3 HEENT: PERRLA, EOMI, Heart: Regular S1-S2, no carotid bruit, no JVD, no lower extremity edema Lungs: Clear to auscultate, no wheeze or rales Abdomen: Soft nontender, no organomegaly Extremity: No cyanosis, no deformity, low back pain, with minimal movement on the shoulder secondary to pain and discomfort Neuro: No focal neurological deficit normal speech, Psych: Alert awake oriented x3, normal affect Results & Data Results & Data ([facility]) Vital Signs (Past 12 Hours) Vital Signs Temp Pulse Resp BP Pulse Ox 04/13/21 07:31 36.9 C 83 18 120/79 95
--- NOTE | 2021-04-13 13:57 | Hospitalist Progress Note ---
Date of Service April 13, 2021 Assessment & Plan (1) Compression fracture of T12 vertebra: Presented with worsening intractable back pain History of remote fall several months ago MRI lumbar spine showed acute compression fracture of the superior endplate of T12 with mild loss of vertebral body height and prevertebral edema. No retropulsion. No epidural hematoma. Orthopedic on board Plan to have kyphoplasty T12 vertebral body done today Continue pain control Continue PT/OT Fall precaution Hypothyroidism Continue outpatient levothyroxine Full code DVT prophylaxis Subq Lovenox on hold due to anticipation for spinal procedure (2) Intractable back pain: Admission and Anticipated Discharge Date Admission Date: April 11, 2021 Subjective Pt was seen and examined for follow up of back pain Sitting in chair with no distress watching TV Pt said she continues to have pain Denies any chest pain, palpitation, dizziness and SOB Review of Systems Review of Systems: All systems reviewed & are unremarkable except as noted in Subjective Physical Exam Physical Exam: General- No acute distress Head- atraumatic Eyes- PERRL, EOMI, ENT- oropharynx clear Neck- supple, no JVD Lungs- clear to auscultation Heart- regular rhythm; no murmur Abdomen- normal bowel sounds, soft, nontender Extremities- no calf tenderness Neuro- alert, oriented x 3; PERRL, EOMI; no facial palsy; no dysarthria Skin- warm & dry Results & Data Results & Data ([facility]) Vital Signs (Past 12 Hours) Vital Signs Temp Pulse Resp BP Pulse Ox 04/13/21 07:31 36.9 C 83 18 120/79 95
--- NOTE | 2021-04-13 14:36 | History & Physical Bridge Note ---
Date of Service April 13, 2021 History & Physical Bridge Note I have examined the patient, reviewed the History & Physical and in the interval since the performance of the History & Physical I have noted the following changes of clinical significance: no changes noted kyphoplasty with biopsy T12
[2021-04-13] MEDS ORDERED: CLINDAMYCIN 600 MG/54 ML D5W IV ONE (14:46)
[2021-04-13] MEDS ORDERED: MIDAZOLAM HCL 1 MG/ML 2ML VIAL ONE (14:56)
[2021-04-13] MEDS ORDERED: fentaNYL citrate 100 MCG/2 ML VIAL ONE (14:56)
[2021-04-13] MEDS ORDERED: BUPIVACAINE/EPINEPHRINE 0.5% MPF 1:200,000 30 ML VIAL ONE (14:58)
--- NOTE | 2021-04-13 15:10 | Anesthesiology Consultation ---
Date of Service April 13, 2021 Assessment & Plan (1) Encounter for pre-operative examination: Chart Review Chart Review: Acceptable Risk for Surgery and Patient NOT seen in Pre Admission Testing Consults Requested none History Surgery Operation Date: 04/13/21 08:15 Proposed Procedures p Kyphoplasty T12 - Desmond Aggarwal DO Height/Weight Height: 5 ft 1 in Weight: 88 kg Allergies Allergy/AdvReac Type Severity Reaction Status Date / Time losartan Allergy Severe SWELLING Verified 04/11/21 13:52 OF FACE, LIPS & TONGUE Penicillins Allergy Severe SWELLING Verified 04/11/21 13:52 OF FACE, LIPS & TONGUE fentanyl Allergy Intermediate itching Verified 04/11/21 13:52 oxycodone Allergy Mild Itching Unverified 04/11/21 13:52 tramadol AdvReac Severe Hallucinati Verified 04/11/21 13:52 ons Sulfa (Sulfonamide AdvReac Intermediate URNIARY Verified 04/11/21 13:52 Antibiotics) FREQUENCY sulfamethoxazole AdvReac Intermediate URNIARY Verified 04/11/21 13:52 FREQUENCY metronidazole AdvReac Mild STOMACH Verified 04/11/21 13:52 PAIN trimethoprim AdvReac Mild URINARY Verified 04/11/21 13:52 FREQUENCY Medications Home Medications Medication Instructions Recorded Confirmed Last Taken acetaminophen [Tylenol Extra 1,000 mg PO Q6H PRN 08/22/18 04/11/21 09/27/20 Strength] acyclovir 400 mg PO TID PRN 08/22/18 04/11/21 09/25/18 albuterol sulfate [Ventolin HFA] 2 puff INHALATION Q4H PRN 08/22/18 04/11/21 04/10/21 baclofen 10 mg PO TID PRN 08/22/18 04/11/21 09/15/20 levothyroxine 100 mcg PO QAM 08/22/18 04/11/21 04/10/21 zolpidem 10 mg PO HS 08/22/18 04/11/21 04/10/21 docusate sodium [Colace] 100 mg PO BID PRN 09/09/18 04/11/21 09/15/20 Culturelle 1 cap PO QAM 09/02/19 04/11/21 04/10/21 ipratropium-albuterol 3 ml INHALATION UD PRN 09/02/19 04/11/21 06/25/20 hydrocodone-acetaminophen 1 tab PO Q6H PRN #10 tab 09/05/19 04/11/21 04/11/21 hydroxyzine HCl 25 mg PO TID PRN 04/11/21 04/11/21 04/09/21 indapamide 1.25 mg PO DAILY 04/11/21 04/11/21 04/11/21 Active Medications Generic Name Dose Route Start Last Admin Trade Name Freq PRN Reason Stop Dose Admin Hydrocodone Bitart/Acetaminophen 2 tab 04/12/21 18:01 04/12/21 22:34 Hydrocodone/Acetaminophen 10/325 Tab PO 04/25/21 22:14 2 tab Q6H PRN Administration Pain Baclofen 10 mg 04/12/21 07:22 04/13/21 10:42 Baclofen 10 Mg Tab PO 05/11/21 22:14 10 mg QID PRN Administration Muscle Spasm Hydromorphone HCl 2 mg 04/12/21 18:01 04/13/21 08:29 Hydromorphone Inj 2 Mg/Ml Syr/Vial IV 04/25/21 22:14 2 mg Q4 PRN Administration Pain Hydroxyzine HCl 25 mg 04/12/21 11:30 04/12/21 22:33 Hydroxyzine Hcl 25 Mg Tab PO 05/11/21 22:14 25 mg Q6 PRN Administration Itching Indapamide 1.25 mg 04/12/21 09:00 04/13/21 08:39 Indapamide 1.25 Mg Tab PO 05/12/21 08:59 1.25 mg DAILY CALE Administration Lactobacillus Acidoph/Casei/Rhamnos 2 cap 04/12/21 09:00 04/13/21 08:37 Advanced Probiotic 1250 Mg Capsule PO 05/12/21 08:59 Not Given QAM CALE Levothyroxine Sodium 100 mcg 04/12/21 06:30 04/13/21 05:57 Levothyroxine Sodium 100 Mcg Tablet PO 05/12/21 06:29 100 mcg DAILYBB CALE Administration Polyethylene Glycol 17 gm 04/12/21 21:00 04/13/21 08:37 Polyethylene (Miralax) 17 Gm Pack PO 05/12/21 20:59 Not Given BID CALE Senna/Docusate Sodium 1 tab 04/13/21 09:00 04/13/21 08:37 Docusate Sodium/Senna 50/8.6mg Tab PO 05/13/21 08:59 Not Given QAM CALE Zolpidem Tartrate 10 mg 04/11/21 22:15 04/12/21 22:32 Zolpidem Tartrate 10 Mg Tab PO 05/11/21 22:14 10 mg HS CALE Administration NPO Date Last Intake of Fluids: 04/12/21 Time Last Intake of Fluids: 17:00 Date Last Intake of Solids: 04/12/21 Time Last Intake of Solids: 17:00 Past Medical History Medical History Abdominal hernia no surgery Asthma inhalers prn Atrial fibrillation and flutter S/P ablation (successful) follows with Dr Romano. Bronchitis hx Chronic back pain Chronic obstructive pulmonary disease mild GERD (gastroesophageal reflux disease) High blood pressure HLD (hyperlipidemia) Hx of Clostridium difficile infection APPROX 5 YRS AGO Hx of deep venous thrombosis ~2018 Hx of discitis treated at [facility] (2018) Hypothyroidism Irritable colon (Unknown) Migraine hx Osteoarthritis Peripheral neuropathy Pneumonia hx Prediabetes RECENT NEW SCRIPT FOR METFORMIN Pseudogout Pulmonary embolism hx of 2006 Sleep apnea NO MACHINE Past Family History Family History Mother Family history of esophageal cancer Hearing loss Father Hearing loss Brother Hearing loss Other Cancer Gallbladder disease Heart disease Hypertension Lung disease No family history of adverse response to anesthesia No family history of bleeding disorder Stroke Past Surgical History Surgical History History of adenoidectomy History of anesthesia reaction EXTREMELY SLOW TO WAKE UP (COLON RESECTION) History of appendectomy History of bunionectomy RT FOOT History of carpal tunnel release RT History of colonoscopy History of dilatation and curettage History of esophagogastroduodenoscopy (EGD) History of right cataract surgery SEP 2020 History of tonsillectomy History of tooth extraction History of total abdominal hysterectomy and bilateral salpingo-oophorectomy Hx of fusion of cervical spine (at least 3 levels fused together) Full ROM S/P ablation of atrial fibrillation ~2014 S/P colon resection chronic diverticulits S/P lumbar fusion Social History Smoking Status: Never smoker tobacco type: cigarettes Do You Dip or Chew Tobacco: No Hx Alcohol Use: Yes Alcohol type: wine alcohol intake frequency: holidays/special occasions only Hx Substance Use: No substance use type: does not use Physical Exam Vital Signs Last Vital Signs Temp 37.2 C 04/13/21 14:03 Pulse 89 04/13/21 14:03 Resp 18 04/13/21 14:03 BP 132/104 H 04/13/21 14:03 Pulse Ox 94 04/13/21 14:03 Testing Laboratory Results 04/11/21 12:06 04/11/21 12:06 Urine Color Yellow 04/11/21 Unknown Urine Appearance Clear (Clear) 04/11/21 Unknown Urine pH 5.0 (4.5-7.5) 04/11/21 Unknown Ur Specific [place] 1.020 (1.000-1.030) 04/11/21 Unknown Urine Protein Negative (Negative) 04/11/21 Unknown Urine Glucose (UA) Negative (Negative) 04/11/21 Unknown Urine Ketones Negative (Negative) 04/11/21 Unknown Urine Nitrite Negative (Negative) 04/11/21 Unknown Ur Leukocyte Esterase Negative (Negative) 04/11/21 Unknown Urine RBC 0-4 /hpf (0-4) 04/11/21 Unknown Urine WBC 0-5 /hpf (0-5) 04/11/21 Unknown Ur Epithelial Cells 20-30 /lpf (0-5) H 04/11/21 Unknown Electrocardiogram Date: 01/09/21 SR with sinus arrhythmia, rate 79
[2021-04-13] MEDS ORDERED: HYDROmorphone INJ 1 MG/ML SYRINGE IV PRN (15:21)
[2021-04-13] MEDS ORDERED: ATROPINE SULFATE 0.1 MG/ML 10ML SYR IV PRN (15:21)
[2021-04-13] MEDS ORDERED: PHENYLEPHRINE 100MCG/ML 5ML SYR IV PRN (15:21)
[2021-04-13] MEDS ORDERED: ONDANSETRON INJ 2 MG/ML 2 ML VIAL IV PRN ×2 (15:21→17:13)
[2021-04-13] MEDS ORDERED: ePHEDrine sulfate 50 MG/ML AMP IV PRN (15:21)
[2021-04-13] MEDS ORDERED: LABETALOL HCL IV 5 MG/ML 20ML IV PRN (15:21)
[2021-04-13] MEDS ORDERED: PROPOFOL IV EMULSION 10 MG/ML 20 ML VIAL IV ONE (15:58)
[2021-04-13] MEDS ORDERED: ONDANSETRON INJ 2 MG/ML 2 ML VIAL ONE (15:58)
[2021-04-13] MEDS ORDERED: ROCURONIUM BROMIDE 10 MG/ML 5 ML VIAL IV ONE (15:58)
[2021-04-13] MEDS ORDERED: DEXAMETHASONE SOD INJ 4 MG/ML VIAL ONE (15:58)
[2021-04-13] MEDS ORDERED: LIDOCAINE 2% 2 ML VIAL/AMP(20MG/ML) INFIL ONE (15:58)
--- NOTE | 2021-04-13 16:07 | Operative Report ---
Post Operative Report Pre & Post Diagnosis Operation Date: 04/13/21 08:15 Pre-Op Diagnosis: Compression Fracture T12 Vertebrae Post-Op Diagnosis: Compression Fracture T12 Vertebrae I identified the patient and participated in the time-out.: Yes Procedure Operation Date: 04/13/21 08:15 Actual Procedures #1 kyphoplasty T12 vertebral body. #2 biopsy of T12 vertebral body. Surgeon Desmond Aggarwal, DO Assistant Manager Bilingual None Estimated Blood Loss 5 Findings Consistent with Post-Op Diagnosis Specimens Biopsy of T12 vertebral body Indications This is a 66-year-old female presents with chronic persistent thoracolumbar back pain. This is significant limiting her quality of life and is here for surgical intervention. Description of Procedure Patient was met with identified informed consent obtained. Patient was then taken to the operative suite underwent a patient placed in a prone position the Breezy table chest padded bolsters. All bony prominences well-padded eyes inspected to ensure no external pressure placed upon the. This point the thoracolumbar spine was prepped and draped in a sterile fashion. The assistance of fluoroscopy identified the T12 vertebral body in AP and lateral planes. 2 small incisions were placed just lateral to the pedicles and 2 Kyphon working c annulas placed by way of a transpedicular approach into the T12 vertebral body. 2 core biopsies were then obtained. I then inserted to 15 mm Kyphon balloons within the vertebral body. They were sequentially inflated. They were subsequently removed and approximately 5 cc of Kyphon cement injected with fluoroscopic visualization. Demonstrated excellent interdigitation and fill of the vertebral body. The working cannulas were subsequently removed and the 2 incisions were closed with subcutaneous Monocryl. Sterile dressings placed. Patient was then awakened taken PACU stable condition. I attest to the content of the Intraoperative Record and any orders documented therein. Any exceptions are noted below.
[2021-04-13] MEDS ORDERED: GLYCOPYRROLATE 0.2 MG/ML VIAL ONE (16:23)
[2021-04-13] MEDS ORDERED: NEOSTIGMINE METHYLSULFATE 1 MG/ML 10ML VIAL ONE (16:23)
--- NOTE | 2021-04-13 16:51 | Anesthesiology Progress Note ---
Date of Service April 13, 2021 Anesthesia Post Procedure Vital Signs Vital Signs: Temp Pulse Pulse Resp BP BP Pulse Ox 04/13/21 16:45 36.4 C L 91 H 14 146/80 H 98 04/13/21 16:35 97 H 14 108/70 100 04/13/21 16:25 109 H 14 123/75 98 04/13/21 16:18 36.1 C L 107 H 14 128/78 98 04/13/21 14:03 37.2 C 89 18 132/104 H 94 04/13/21 07:31 36.9 C 83 18 120/79 95 04/12/21 22:22 37.5 C 94 H 16 152/93 H 95 Pain Intensity Back: Pain Intensity: 3 Transfer of Care Handoff Completed per policy Notes Mental Status: alert / awake / arousable Patient Amnestic to Procedure: Yes Nausea / Vomiting: adequately controlled Pain: adequately controlled Airway Patency, RR, SpO2: stable & adequate BP & HR: stable & adequate Hydration State: stable & adequate Anesthetic Complications: no major complications apparent and Pt Satisfied with anesthetic care Notes: The patient is awake and comfortable. Her vital signs are stable.
[2021-04-13] MEDS ORDERED: ALUMINUM/MAGNESIUM SUSP 30 ML UDC PO PRN (17:13)
[2021-04-13] MEDS ORDERED: DO NOT ADMINISTER FLU VACCINE PRN (17:13)
[2021-04-13] MEDS ORDERED: ACETAMINOPHEN 500 MG TAB PO PRN (17:13)
[2021-04-13] MEDS ORDERED: LORazepam 0.5 MG/1 ML VIAL IV PRN (17:13)
[2021-04-13] MEDS ORDERED: NALOXONE HCL 0.4 MG/1 ML VIAL/CARP IV PRN (17:13)
[2021-04-13] MEDS ORDERED: ACETAMINOPHEN 1,000 MG/100 ML VIAL IV PRN (17:13)
[2021-04-13] MEDS ORDERED: LORazepam 0.5 MG TAB PO PRN (17:13)
[2021-04-13] MEDS ORDERED: FAMOTIDINE 20 MG TAB PO PRN (17:13)
[2021-04-13] MEDS ORDERED: DO NOT ADMINISTER PNEUMOCOCCAL VACCINE PRN (17:13)
[2021-04-13] MEDS ORDERED: SOD PHOSPHATE/SOD BIPHOSPHATE ENEMA 132 ML BTL PR PRN (17:13)
[2021-04-13] MEDS ORDERED: hydrOXYzine HCl 25 MG TAB PO PRN (17:13)
[2021-04-13] MEDS ORDERED: PROMETHAZINE HCL 12.5 MG in SODIUM CHLORIDE 0.9% 50 ML IV PRN (17:13)
[2021-04-13] MEDS ORDERED: diphenhydrAMINE Capsule 25 MG CAP PO PRN (17:13)
[2021-04-13] MEDS ORDERED: ONDANSETRON 4 MG OD TAB PO PRN (17:13)
[2021-04-13] MEDS ORDERED: MAGNESIUM HYDROXIDE SUSP 30 ML UDC PO PRN (17:13)
[2021-04-13] MEDS ORDERED: METOCLOPRAMIDE HCL INJ 5 MG/ML 2 ML VIAL IV PRN (17:13)
[2021-04-13] MEDS ORDERED: ALBUTEROL HFA 8 GM INHALER INH PRN (19:15)
--- NOTE | 2021-04-13 19:16 | Fluoroscopy Report ---
FL thoracic spine 2V CLINICAL HISTORY: T12 KYPHOPLASTY COMPARISON STUDY: Thoracic spine radiographs April 12, 2021. MR spine MRI April 11, 2021. FLUOROSCOPY TIME: 118 seconds. FLUOROSCOPIC IMAGES: 3 FINDINGS: Fluoroscopy was provided during T12 kyphoplasty. IMPRESSION: Fluoroscopy provided during T12 kyphoplasty. ACT 112: Negative or not required by law. Electronically signed by: Arsen Dominguez M.D. 04/13/2021 7:14 PM
[2021-04-13] MEDS: HYDROcodone/ACETAMINOPHEN 10/325 TAB PO PRN (19:29)
[2021-04-13] MEDS: ALBUT/IPRATROP 3MG/0.5MG NEB 3 ML VIAL INH PRN (19:43)
[2021-04-13] MEDS: LACTATED RINGER'S 1,000 ML IV SCH (20:42)
[2021-04-13] MEDS ORDERED: ACETAMINOPHEN W/CODEINE #3 1 TAB PO PRN (21:14)
[2021-04-13] MEDS: ZOLPIDEM TARTRATE 10 MG TAB PO SCH (22:20)
[2021-04-13] MEDS: CLINDAMYCIN 600 MG in DEXTROSE 5% 50 ML IV SCH (22:20)
[2021-04-14 02:10] LABS: Basophils # (auto) 0.01 K/uL (0-0.2); Basophils % (auto) 0.1 %; Hematocrit (blood only) 38.4 % (37-47); Hemoglobin 13.6 g/dL (12.0-16.0); Immature Granulocytes # (auto) 0.03 K/uL (0.00-0.02); Immature Granulocytes % (auto) 0.4 %; Lymphocytes # (auto) 0.94 K/uL (1.2-3.4); Lymphocytes % (auto) 12.9 %; Mean Corpuscular Hemoglobin 31.3 pg (25-34); Mean Corpuscular Hgb Conc 35.4 g/dL (32-36); Mean Corpuscular Volume 88.3 fL (80-100); Mean Platelet Volume 8.8 fL (7.4-10.4); Monocytes % (auto) 2.7 %; Neutrophils # (auto) 6.12 K/uL (1.4-6.5); Neutrophils % (auto) 83.9 %; Platelet Count 295 K/uL (130-400); RDW Standard Deviation 38.5 fL (36.4-46.3); Red Blood Count 4.35 M/uL (4.2-5.4)
[2021-04-14] MEDS: ALBUT/IPRATROP 3MG/0.5MG NEB 3 ML VIAL INH PRN ×2 (02:28→15:38)
[2021-04-14 02:29] LABS: BUN Creatinine Ratio 23.6 (10-20); Calcium 8.9 mg/dl (8.5-10.1); Est GFR (Non-African American) 93.1 ml/min; Magnesium 2.2 mg/dl (1.8-2.4); Potassium 3.9 mmol/L (3.5-5.1)
[2021-04-14] MEDS: CLINDAMYCIN 600 MG in DEXTROSE 5% 50 ML IV SCH (05:26)
[2021-04-14] MEDS: LEVOTHYROXINE SODIUM 100 MCG TABLET PO SCH (05:59)
[2021-04-14] MEDS: POLYETHYLENE (MIRALAX) 17 GM PACK PO SCH ×5 (05:59→20:15)
[2021-04-14] MEDS ORDERED: CLINDAMYCIN 600 MG/54 ML BAG IV SCH (06:00)
[2021-04-14] MEDS: LACTATED RINGER'S 1,000 ML IV SCH (06:08)
--- NOTE | 2021-04-14 07:04 | Ultrasound Report ---
ULTRASOUND BILATERAL LOWER EXTREMITY VENOUS CLINICAL HISTORY: Bilateral leg pain. COMPARISON STUDY: Left lower extremity venous ultrasound dated 02/18/2019 TECHNIQUE: Real-time, grayscale, and color Doppler sonography of the deep veins of the right and left lower extremity was performed from the inguinal crease to the calf. Compression and augmentation wer e utilized. FINDINGS: There is no sonographic evidence of deep venous thrombosis identified in the right or left lower extremity. The common femoral, superficial femoral, and popliteal veins are patent and normally compressible bilaterally. The greater saphenous vein and the profunda femoris vein at the junction w ith the common femoral vein are clear in both legs. The visualized calf veins are patent bilaterally. A complex popliteal cyst on the right measures 3.4 x 0.8 x 2.4 cm, and a popliteal cyst on the left measures 3.8 x 1.2 x 3.1 cm. IMPRESSION: 1. There is no sonographic evidence of deep venous thrombosis identified in the right or left lower e xtremity. 2. Bilateral Giraldo's cysts. ACT 112: Negative or not required by law. Electronically signed by: Frank Mendez M.D. 04/14/2021 7:03 AM
[2021-04-14] MEDS: HYDROcodone/ACETAMINOPHEN 10/325 TAB PO PRN ×3 (08:34→20:45)
[2021-04-14] MEDS: DOCUSATE SODIUM/SENNA 50/8.6MG TAB PO SCH ×2 (08:34→20:15)
[2021-04-14] MEDS: ADVANCED PROBIOTIC 1250 MG CAPSULE PO SCH (08:35)
[2021-04-14] MEDS: INDAPAMIDE 1.25 MG TAB PO SCH (08:35)
--- NOTE | 2021-04-14 08:45 | Anesthesiology Progress Note ---
Date of Service April 14, 2021 Anesthesia Post Procedure Vital Signs Vital Signs: Temp Pulse Pulse Resp BP BP Pulse Ox 04/14/21 07:34 36.7 C 74 18 113/71 95 04/14/21 02:28 92 H 15 98 04/13/21 22:15 37.3 C 87 18 120/86 93 04/13/21 19:43 79 20 96 04/13/21 19:04 37.0 C 84 18 151/82 H 91 04/13/21 18:16 37.2 C 87 18 118/65 92 04/13/21 17:35 37.5 C 93 H 18 127/90 92 04/13/21 17:05 37.6 C H 88 16 125/75 92 04/13/21 16:55 36.4 C L 89 16 108/71 96 04/13/21 16:45 36.4 C L 91 H 14 146/80 H 98 04/13/21 16:35 97 H 14 108/70 100 04/13/21 16:25 109 H 14 123/75 98 04/13/21 16:18 36.1 C L 107 H 14 128/78 98 04/13/21 14:03 37.2 C 89 18 132/104 H 94 Pain Intensity Back: Pain Intensity: 5 Notes Mental Status: alert / awake / arousable and participated in evaluation Patient Amnestic to Procedure: Yes Nausea / Vomiting: adequately controlled Pain: adequately controlled Airway Patency, RR, SpO2: stable & adequate BP & HR: stable & adequate Hydration State: stable & adequate Anesthetic Complications: no major complications apparent
--- NOTE | 2021-04-14 08:45 | Orthopedic Progress Note ---
Date of Service April 14, 2021 Assessment & Plan (1) Compression fracture of T12 vertebra: Admission and Anticipated Discharge Date Admission Date: April 11, 2021 At this time she is ambulating as tolerated. Still struggling mostly with her left shoulder. We will have one of my partners assess her in arranging outpatient follow-up. Subjective Back pain is improved. She was ambulating last night. Physical Exam Physical Exam: On exam she is in the chair at the bedside. Has good strength testing. Results & Data ([facility]) Vital Signs (Past 12 Hours) Vital Signs Temp Pulse Resp BP Pulse Ox 04/14/21 07:34 36.7 C 74 18 113/71 95 04/14/21 02:28 92 H 15 98 04/13/21 22:15 37.3 C 87 18 120/86 93
[2021-04-14] MEDS: BACLOFEN 10 MG TAB PO PRN ×2 (09:11→22:31)
[2021-04-14] MEDS ORDERED: methylPREDNISolone 4 MG TAB, 6 DAY TAPER PO SCH (11:30)
[2021-04-14] MEDS: methylPREDNISolone 4 MG TAB PO SCH ×4 (12:38→20:15)
[2021-04-14] MEDS: HEPARIN SOD 5,000 UNIT/0.5 ML VIAL SQ SCH ×2 (12:42→22:31)
--- NOTE | 2021-04-14 16:44 | Hospitalist Progress Note ---
Date of Service April 14, 2021 Assessment & Plan (1) Intractable back pain: (2) Compression fracture of T12 vertebra: Presented with worsening intractable back pain History of remote fall several months ago MRI lumbar spine showed acute compression fracture of the superior endplate of T12 with mild loss of vertebral body height and prevertebral edema. No retropulsion. No epidural hematoma. 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 Tendinosis with partial-thickness insertional tearing of the supraspinatus and infraspinatus as above. Ortho discussed about conservative treatment with a steroid injection versus definitive surgical intervention with the rotator cuff repair. Pt said that she will think about it Follow-up with ortho in the next 1 to 2 weeks after discharge for further evaluate B/L leg pain doppler u/s showed no sonographic evidence of deep venous thrombosis identified in the right or left lower extremity. Bilateral Giraldo's cysts. Case discussed with ortho recommended conservative management Will give a trial of steroid Hypothyroidism Continue outpatient levothyroxine Full code DVT prophylaxis on heparin subq Admission and Anticipated Discharge Date Admission Date: April 11, 2021 Subjective Pt was seen and examined for follow up of back pain Sitting in chair with no distress Pt said that pain improves in her back she said that she was having pain in both knees Pt is very anxious Denies any chest pain, palpitation, dizziness and SOB Review of Systems Review of Systems: All systems reviewed & are unremarkable except as noted in Subjective Physical Exam Physical Exam: General- No acute distress Head- atraumatic Eyes- PERRL, EOMI, ENT- oropharynx clear Neck- supple, no JVD Lungs- clear to auscultation Heart- regular rhythm; no murmur Abdomen- normal bowel sounds, soft, nontender Extremities- no calf tenderness Neuro- alert, oriented x 3; PERRL, EOMI; no facial palsy; no dysarthria Skin- warm & dry Results & Data Results & Data ([facility]) Vital Signs (Past 12 Hours) Vital Signs Temp Pulse Resp BP Pulse Ox 04/14/21 15:47 36.9 C 88 16 135/78 93 04/14/21 15:38 80 18 97 04/14/21 11:17 36.7 C 80 18 143/86 H 95 04/14/21 07:34 36.7 C 74 18 113/71 95
--- NOTE | 2021-04-14 19:02 | Orthopedic Progress Note ---
Date of Service April 14, 2021 Assessment & Plan (1) Incomplete rotator cuff tear or rupture of left shoulder, not specified as traumatic: She just had spine surgery yesterday, but has fairly severe pain and weakness in her left shoulder from a high-grade partial-thickness rotator cuff tear, presumably sustained during an acute ground-level fall 3 months ago in December. We discussed initial conservative treatment with a steroid injection versus definitive surgical intervention with the rotator cuff repair. We discussed what would be involved with the postoperative recovery and rehabilitation in some detail. She will think about her options and see how she recovers from the spine surgery. Follow-up with me in clinic in the next 1 to 2 weeks after discharge to evaluate this further. Admission and Anticipated Discharge Date Admission Date: April 11, 2021 Subjective Patient complains of pain in her left shoulder and her right elbow. The left shoulder pain has been present ever since a fall when she slipped on some ice in December. Dr. Aggarwal ordered an MRI of her shoulder, and asked me to go over it with her. She has had quite a bit of pain and limitation in motion since that fall. The pain has been waking her up at night. Results & Data ([facility]) Vital Signs (Past 12 Hours) Vital Signs Temp Pulse Resp BP Pulse Ox 04/14/21 15:47 36.9 C 88 16 135/78 93 04/14/21 15:38 80 18 97 04/14/21 11:17 36.7 C 80 18 143/86 H 95 04/14/21 07:34 36.7 C 74 18 113/71 95 Diagnostic Findings MRI of her left shoulder showed high-grade partial-thickness tearing. There is a small area in the anterior supraspinatus where it looks like there is about 90% tendon thickness tearing.
[2021-04-14] MEDS: ZOLPIDEM TARTRATE 10 MG TAB PO SCH (22:31)
[2021-04-15] MEDS: POLYETHYLENE (MIRALAX) 17 GM PACK PO SCH ×4 (00:25→13:13)
[2021-04-15] MEDS: LEVOTHYROXINE SODIUM 100 MCG TABLET PO SCH (05:38)
[2021-04-15] MEDS: HEPARIN SOD 5,000 UNIT/0.5 ML VIAL SQ SCH ×2 (05:38→13:59)
[2021-04-15] MEDS: INDAPAMIDE 1.25 MG TAB PO SCH (08:53)
[2021-04-15] MEDS: ADVANCED PROBIOTIC 1250 MG CAPSULE PO SCH (08:53)
[2021-04-15] MEDS: methylPREDNISolone 4 MG TAB PO SCH ×2 (08:55→13:55)
[2021-04-15] MEDS: HYDROcodone/ACETAMINOPHEN 10/325 TAB PO PRN (08:56)
[2021-04-15] MEDS: DOCUSATE SODIUM/SENNA 50/8.6MG TAB PO SCH (13:13)
[2021-04-15] MEDS: BACLOFEN 10 MG TAB PO PRN (13:17)
--- NOTE | 2021-04-15 14:20 | Hospitalist Progress Note ---
Date of Service April 15, 2021 Assessment & Plan (1) Intractable back pain: (2) Compression fracture of T12 vertebra: Presented with worsening intractable back pain History of remote fall several months ago MRI lumbar spine showed acute compression fracture of the superior endplate of T12 with mild loss of vertebral body height and prevertebral edema. No retropulsion. No epidural hematoma. Orthopedic on board S/P day #2 kyphoplasty T12 vertebral body done today follow up with Dr. 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 Tendinosis with partial-thickness insertional tearing of the supraspinatus and infraspinatus as above. Ortho discussed about conservative treatment with a steroid injection versus definitive surgical intervention with the rotator cuff repair. Pt said that she would try the steroid injection (ortho will try to do it outpatient) Follow-up with ortho in the next 1 to 2 weeks after discharge for further evaluate B/L leg pain doppler u/s showed no sonographic evidence of deep venous thrombosis identified in the right or left lower extremity. Bilateral Giraldo's cysts. Case discussed with ortho recommended conservative management Will give a course of medrol dose pack Pain improves Hypothyroidism Continue outpatient levothyroxine Full code DVT prophylaxis on heparin subq Disposition Discharge home today Admission and Anticipated Discharge Date Admission Date: April 11, 2021 Subjective Pt was seen and examined. Sitting in chair with no distress. Pt said that her pain improves She said that sometimes she does not have any pain for more than 5 hrs, then one episode comes intermittently She said that she pushed herself too much yesterday Denies any chest pain, palpitation, dizziness and SOB Review of Systems Review of Systems: All systems reviewed & are unremarkable except as noted in Subjective Physical Exam Physical Exam: General- No acute distress Head- atraumatic Eyes- PERRL, EOMI, ENT- oropharynx clear Neck- supple, no JVD Lungs- clear to auscultation Heart- regular rhythm; no murmur Abdomen- normal bowel sounds, soft, nontender Extremities- no calf tenderness Neuro- alert, oriented x 3; PERRL, EOMI; no facial palsy; no dysarthria Skin- warm & dry Results & Data Results & Data ([facility]) Vital Signs (Past 12 Hours) Vital Signs Temp Pulse Resp BP Pulse Ox 04/15/21 07:40 36.7 C 68 12 147/86 H 95
[2021-04-15] MEDS ORDERED: bisacodyL 10 MG SUPP PR PRN (16:09)
[2021-04-15] MEDS ORDERED: methylPREDNISolone 4 MG TAB PO SCH (21:00)
[2021-04-16] MEDS ORDERED: methylPREDNISolone 4 MG TAB PO SCH (07:00)
[2021-04-17] MEDS ORDERED: methylPREDNISolone 4 MG TAB PO SCH (07:00)
[2021-04-18] MEDS ORDERED: methylPREDNISolone 4 MG TAB PO SCH (07:00)
--- NOTE | 2021-04-18 09:10 | Discharge Summary ---
Date of Service April 15, 2021 Admission HPI Per Admitting Provider This is a 58-year-old female to the ER with chronic low back pain/neck pain with radiation to shoulder and arm, Sustained a fall, on December this year, slipped and fell down 5 steps did not had dizzy spell or lightheadedness after that fall The past several days the patient noted significant back and shoulder pain, unable to get up from the chair, limiting her movements MRI shows compression fracture of T12 vertebrae Patient required significant pain medication in the ER, Unable to be discharged home with p.o. pain medications. Admit to medical surgical floor, continue pain control, spinal orthopedics consulted Admission Exam Per Admitting Provider Physical exam: General: No acute distress, alert awake oriented x3 HEENT: PERRLA, EOMI, Heart: Regular S1-S2, no carotid bruit, no JVD, no lower extremity edema Lungs: Clear to auscultate, no wheeze or rales Abdomen: Soft nontender, no organomegaly Extremity: No cyanosis, no deformity, low back pain, with minimal movement on the shoulder secondary to pain and discomfort Neuro: No focal neurological deficit normal speech, Psych: Alert awake oriented x3, normal affect Principal Diagnosis Intractable back pain: Compression fracture of T12 vertebra: Left Shoulder pain B/L leg pain Hypothyroidism Discharge Exam General- No acute distress Head- atraumatic Eyes- PERRL, EOMI, ENT- oropharynx clear Neck- supple, no JVD Lungs- clear to auscultation Heart- regular rhythm; no murmur Abdomen- normal bowel sounds, soft, nontender Extremities- no calf tenderness Neuro- alert, oriented x 3; PERRL, EOMI; no facial palsy; no dysarthria Skin- warm & dry Discharge Data Allergies Allergy/AdvReac Type Severity Reaction Status Date / Time losartan Allergy Severe SWELLING Verified 04/11/21 13:52 OF FACE, LIPS & TONGUE Penicillins Allergy Severe SWELLING Verified 04/11/21 13:52 OF FACE, LIPS & TONGUE fentanyl Allergy Intermediate itching Verified 04/11/21 13:52 oxycodone Allergy Mild Itching Unverified 04/11/21 13:52 tramadol AdvReac Severe Hallucinati Verified 04/11/21 13:52 ons Sulfa (Sulfonamide AdvReac Intermediate URNIARY Verified 04/11/21 13:52 Antibiotics) FREQUENCY sulfamethoxazole AdvReac Intermediate URNIARY Verified 04/11/21 13:52 FREQUENCY metronidazole AdvReac Mild STOMACH Verified 04/11/21 13:52 PAIN trimethoprim AdvReac Mild URINARY Verified 04/11/21 13:52 FREQUENCY Consultations 04/11/21 22:15 Consult Orthopedic Surgery Routine Procedures Performed Operation Date: 04/13/21 08:15 Actual Procedures p Kyphoplasty T12 with Biopsy(Not Applicable) - Desmond Aggarwal, Ordered Studies 04/11/21 12:10 MR lumbar spine wo/w con Stat 04/12/21 13:03 MR shoulder LT wo con Routine 04/13/21 FL thoracic spine 2V Routine 04/13/21 21:12 US venous doppler LE BI Urgent ULTRASOUND BILATERAL LOWER EXTREMITY VENOUS CLINICAL HISTORY: Bilateral leg pain. COMPARISON STUDY: Left lower extremity venous ultrasound dated 02/18/2019 TECHNIQUE: Real-time, grayscale, and color Doppler sonography of the deep veins of the right and left lower extremity was performed from the inguinal crease to the calf. Compression and augmentation were utilized. FINDINGS: There is no sonographic evidence of deep venous thrombosis identified in the right or left lower extremity. The common femoral, superficial femoral, and popliteal veins are patent and normally compressible bilaterally. The greater saphenous vein and the profunda femoris vein at the junction with the common femoral vein are clear in both legs. The visualized calf veins are patent bilaterally. A complex popliteal cyst on the right measures 3.4 x 0.8 x 2.4 cm, and a popliteal cyst on the left measures 3.8 x 1.2 x 3.1 cm. IMPRESSION: 1. There is no sonographic evidence of deep venous thrombosis identified in the right or left lower extremity. 2. Bilateral Giraldo's cysts. ACT 112: Negative or not required by law. Electronically signed by: Frank Mendez M.D. 04/14/2021 7:03 AM Dictated: 04/14/21 0702Transcribed: 04/14/21 07 FL thoracic spine 2V CLINICAL HISTORY: T12 KYPHOPLASTY COMPARISON STUDY: Thoracic spine radiographs April 12, 2021. MR spine MRI April 11, 2021. FLUOROSCOPY TIME: 118 seconds. FLUOROSCOPIC IMAGES: 3 FINDINGS: Fluoroscopy was provided during T12 kyphoplasty. IMPRESSION: Fluoroscopy provided during T12 kyphoplasty. ACT 112: Negative or not required by law. Electronically signed by: Arsen Dominguez M.D. 04/13/2021 7:14 PM Dictated: 04/13/211912Transcribed: 04/13/211912 XR thoracic spine 2V HISTORY: 66 years-old Female back pain . Acute mid back pain without reported trauma COMPARISON: Chest radiograph 09/02/2019, MRI lumbar spine 09/02/2019, 04/11/2021. TECHNIQUE: 3 views of the thoracic spine FINDINGS: Cervical spinal fusion hardware. Cardiac silhouette is upper limits of normal in size. Mild levoscoliosis of the thoracolumbar junction. Moderate multilevel and vertebral disc space narrowing with degenerative partial bony fusion of the midthoracic spine. Moderate spondylitic spurring and facet arthrosis. Acute 20% superior endplate compression deformity of T12. No retropulsion. No additional acute fracture or subluxation. IMPRESSION: 1. Acute T12 compression deformity without retropulsion. 2. Degenerative changes as above. ACT 112: Negative or not required by law. The above report was generated using voice recognition software. It may contain grammatical, syntax or spelling errors. Electronically signed by: Sonny King M.D. 04/12/2021 2:18 PM Dictated: 04/12/211403Transcribed: 04/12/21 140 MR shoulder LT wo con CLINICAL HISTORY: 66 years-old Female with pain. Acute left shoulder pain with limited range of motion. COMPARISON: Chest radiograph 11/04/2020 TECHNIQUE: Multiplanar, multi sequence MRI of the left shoulder was performed without intravenous contrast. FINDINGS: Motion degradation limits the study. ROTATOR CUFF: High-grade partial articular sided tear involves the anterior insertional supraspinatus measuring 6 x 7 mm (image 9 series 11 and image 16 series 9). Moderate associated supraspinatus tendinosis and interstitial insertional tearing. No tendon retraction or significant muscular atrophy. High-grade partial-thickness interstitial tearing of the posterior insertional fibers of the infraspinatus measures up to approximately 11 mm transverse dimension on image 13 series 11. No tendon retraction or significant muscular atrophy. Intact teres minor. Moderate subscapularis tendinosis. No high-grade partial or full-thickness subscapularis tendon tear identified. BICEPS TENDON: The long head biceps tendon is suboptimally visualized secondary to the aforementioned artifact. There is suggested tendinosis without definitive tear identified. LABRUM: Multifocal fraying and irregularity of the labrum with suggested chronic SLAP tear. No definite paralabral cyst. GLENOHUMERAL JOINT: Moderate glenohumeral osteoarthritis with low and intermediate grade chondromalacia. No large joint effusion or intra-articular loose body. Prominent subcortical cystic changes of the posterior superior glenoid. ACROMIOCLAVICULAR JOINT: Mild to moderate degeneration of the AC joint with capsular hypertrophy and marginal spurring with trace joint effusion. Mild caudal spurring of the acromium. No evidence of os acromiale. Mild subacromial/subdeltoid bursitis. OUTLET SPACES: The suprascapular notch and quadrilateral space are without obstructing or space occupying lesions. BONE MARROW: No acute fracture or marrow replacing process. SOFT TISSUES: The periarticular soft tissues are otherwise unremarkable. IMPRESSION: 1. Motion degraded exam. 2. Moderate glenohumeral with mild to moderate AC joint osteoarthritis. 3. Tendinosis with partial-thickness insertional tearing of the supraspinatus and infraspinatus as above. No tendon retraction or significant muscular atrophy. 4. Chronic SLAP tear. 5. No acute fracture. ACT 112: Negative or not required by law. The above report was generated using voice recognition software. It may contain grammatical, syntax or spelling errors. Dictated: 04/13/2021 7:35 AM Transcribed: 04/13/2021 8:22 AM Jessica [id number] [email or web address] Electronically signed by: Sonny King M.D. 04/13/2021 9:34 AM Dictated: 04/13/21 0735Transcribed: 04/13/21 0822 MRI OF THE LUMBAR SPINE WITH AND WITHOUT CONTRAST CLINICAL HISTORY: severe low back pain, hx of osteomyelitis COMPARISON STUDY: Lumbar spine MRI November 06, 2018. TECHNIQUE: Utilizing a 1.5 Ro magnet and dedicated coil, multiplanar, multiecho imaging of the lumbar spine was performed before and after uneventful IV administration of 9 mL of Gadavist. FINDINGS: For purposes of numbering on this exam, the L5-S1 disc space is assigned to axial image 24 of 28. This exam is moderately compromised by motion artifact. 7 mm of anterolisthesis of L4 and L5 is unchanged. There are postoperative findings consistent with L5-S1 discectomy with right hemilaminectomy at this level with right-sided pedicle screws at the L5 and S1 levels. Postoperative appearance is similar to MRI November 06, 2018. No intracanalicular mass or fluid collection is identified. Conus terminates at the T12-L1 level. Several hemangiomas are noted, the largest of which is within the L2 vertebral body. There is no suspicious marrow replacement. Note is made of transverse hypointense signal within the superior aspect of the T12 vertebral body which extends to the endplate. There is mild vertebral body height loss without retropulsion. There is mild prevertebral edema. No additional fractures are identified. There is no evidence for discitis or osteomyelitis. The central canal and neural foramen are suboptimally assessed on this exam. L1-2: There is disc bulge with facet arthrosis. Central canal is patent. Neural foramen are patent. L2-3: Central canal and neural foramen are patent. L3-4: There is facet arthrosis with ligamentous hypertrophy. There is no significant central canal or lateral recess narrowing. There is mild narrowing of both neural foramen. L4-5: Grade I anterolisthesis is unchanged. There is facet arthrosis with ligamentous hypertrophy. Findings result in moderate narrowing of the central canal and moderate to severe left and moderate right neural foraminal stenosis. L5-S1: Central canal and neural foramen are patent. IMPRESSION: 1. Acute compression fracture of the superior endplate of T12 with mild loss of vertebral body height and prevertebral edema. No retropulsion. No epidural hematoma. 2. No acute lumbar spine fracture. No evidence for discitis or osteomyelitis within the lumbar spine. 3. Status post L5-S1 discectomy with right hemilaminectomy and right-sided pedicle screw fusion. Unchanged postoperative appearance. 4. No change in grade I anterolisthesis L4 on L5 with uncovering of the disc and ligamentous hypertrophy and facet arthrosis which result in moderate central canal and right neural foraminal stenosis and moderate to severe left neural foraminal stenosis. 5. Exam compromised by motion artifact. ACT 112: Negative or not required by law. Electronically signed by: Arsen Dominguez M.D. 04/11/2021 4:09 PM Dictated: 04/11/21 1600Transcribed: 04/11/21 1600 Hospital Course (1) Intractable back pain: (2) Compression fracture of T12 vertebra: Presented with worsening intractable back pain History of remote fall several months ago MRI lumbar spine showed acute compression fracture of the superior endplate of T12 with mild loss of vertebral body height and prevertebral edema. No retropulsion. No epidural hematoma. Orthopedic on board S/P day #2 kyphoplasty T12 vertebral body done today follow up with Dr. 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 Tendinosis with partial-thickness insertional tearing of the supraspinatus and infraspinatus as above. Ortho discussed about conservative treatment with a steroid injection versus definitive surgical intervention with the rotator cuff repair. Pt said that she would try the steroid injection (ortho will try to do it outpatient) Follow-up with ortho in the next 1 to 2 weeks after discharge for further evaluate B/L leg pain doppler u/s showed no sonographic evidence of deep venous thrombosis identified in the right or left lower extremity. Bilateral Giraldo's cysts. Case discussed with ortho recommended conservative management Will give a course of medrol dose pack Pain improves Hypothyroidism Continue outpatient levothyroxine Full code DVT prophylaxis on heparin subq Disposition Discharge home today Total Time Total Time Spent Total Time Spent (In Minutes): 35 minutes Total Time Includes: Examination of the Patient, Discharge Planning, Medication Reconciliation, Communication With Other Providers and Other Discharge Plan Discharge Items Patient Disposition: Home - Home Health Services Reason For Visit: BACK PAIN Discharge Diagnosis: Intractable back pain: Compression fracture of T12 vertebra: Left Shoulder pain B/L leg pain Hypothyroidism Activity: Resume your previous activity Lifting: No more than 5 pounds Non-emergency contact: Primary Care Provider and Surgeon Call non-emergency contact if: you have any medication questions Follow-up/Referrals: Cj Rico MD [Primary Care Provider] - (Date & Time 04/20/2021 2:00 PM Provider Cj Rico III, MD Department [facility] ) Diet: Heart Healthy Addtl Attending Provider Instructions: Follow up with your primary care provider Dr. Rico on 04/20/2021 at 2:00 PM at the [facility] Duvall in 1 -2 weeks Follow up with Dr. Aggarwal in 2 weeks (office will call you next week for the appointment) Bandage can come off tomorrow as per Dr. Aggarwal Do not drive or operate any machine while taking narcotic Please hold next dose of narcotic if you develop lethargy and drowsiness Fall precaution Activity as tolerated No strenuous activity until cleared by orthopedic No submerging incisions underwater for 2 weeks (no swimming, bathing, hot tubs) but you may shower and gently clean the incisions with soap and water and pat dry. Walking and light activities encouraged daily to prevent blood clots from forming You will be given prescription for narcotic pain medication as needed for moderate severe pain. Take as directed this medication may cause drowsiness and constipation. Pending Studies at Discharge: No Stand-Alone Forms: My [facility] [employer], Opioid Pain Management, Smoking Cessation Medications and DC Order Prescriptions: New polyethylene glycol 3350 [Miralax] 17 gram Powder In Packet 17 g PO BID PRN (Reason: constipation) Qty: 30 RF: 0 methylprednisolone [Medrol (Jonathan)] 4 mg tablets,dose pack 4 mg PO UD Qty: 21 RF: 0 Continued docusate sodium [Colace] 100 mg capsule 100 mg PO BID PRN (Reason: Constipation) RF: 0 ipratropium-albuterol 0.5 mg-3 mg(2.5 mg base)/3 mL solution for nebulization 3 ml inhalation UD PRN (Reason: Shortness Of Breath Or Wheezing) RF: 0 Culturelle 10 billion cell Capsule 1 cap PO QAM RF: 0 acyclovir 400 mg Tablet 400 mg PO TID PRN (Reason: Cold Sore(s)) RF: 0 acetaminophen [Tylenol Extra Strength] 500 mg Tablet 1,000 mg PO Q6H PRN (Reason: Pain) RF: 0 levothyroxine 100 mcg Tablet 100 mcg PO QAM RF: 0 baclofen 10 mg Tablet 10 mg PO TID PRN (Reason: Muscle Spasm) RF: 0 zolpidem 10 mg Tablet 10 mg PO HS RF: 0 albuterol sulfate [Ventolin HFA] 90 mcg/actuation Hfa Aerosol Inhaler 2 puff INHALATION Q4H PRN (Reason: Wheezing) RF: 0 indapamide 1.25 mg tablet 1.25 mg PO DAILY RF: 0 hydroxyzine HCl 25 mg tablet 25 mg PO TID PRN (Reason: Itching) RF: 0 Changed hydrocodone-acetaminophen 10-325 mg tablet 1 tab PO Q8H PRN (Reason: Pain) Qty: 12 RF: 0 Discharge Orders: Discharge Order (Routine); Ordered 04/15/21 Ordered By: Nohelia Langley/Other Patient Handouts: Medicine for Pain, Relieving Tension in Your Back Admission Data Admit Date/Time: 04/11/21 17:22 Attending Provider: Nohelia Lang Admit Provider: Desmond Aggarwal Primary Care Provider: Cj Rico Other Providers: Maribel Weiss ; Desmond Aggarwal ; [facility] ; [facility]
[2021-04-19] MEDS ORDERED: methylPREDNISolone 4 MG TAB PO SCH (07:00)
== END 2021-04-15 17:01 | disposition home health service (06) | DRG 479 ==
LOC: ED 11:19 → SUATTDRO 17:22 → 3N 17:22

== ENCOUNTER 2024-07-27 08:30 | Inpatient (IN) ==
--- OUTSIDE RECORDS SUMMARY | 2024-07-27 08:34 | External Medical Summary | Summary of Care ---
Author Name Unknown Organization [facility] Address [address] [place] [address] Phone [phone] Care Team Providers Care Clam Bed Laborer Name Role Phone Trisha DUTTA MD, Cj Cote Primary Care Provider [phone] Reason for Visit * Reason Comments Medication Management Encounter Details Date Type Department Care Team (Late st Contact Info) Description 07/24/2024 1:45 PM EDT Pharmacy Pharmacy Hematology Oncology [facility] [address] [place] [address] [facility] [place] [facility] Hem/Onc [address] [place] [address] Primary malignant neoplasm of lung, unspecified laterality (HCC)* Allergies Active Allergy Reactions Criticality Noted Date Comments Losartan Potassium Edema face/lips/tongue High 06/30 Fentanyl Itching 08/30/2016 Oxycodone 06/07/2023 Itching all over Penicillins Edema face/lips/tongue High 11/15/2001 Sulfa Antibiotics Other (Please comment) 2000 Urinary frequency Topiramate 04/09/2023 Other reaction(s): Blurry Vision Tramadol Other (Please comment) 01/01/2018 hallucinations documented as of this encounter (statuses as of 07/24/2024) Medications Medication Sig Dispensed Refills Start Date End Date Status TYLENOL EXTRA STRENGTH 500 MG PO TABS Take 2 Tablets by mouth every 6 hours as needed for Pain, Mild or Pain, Moderate. 0 02/26/2007 Active VITAMIN D 1000 UNIT PO CAPS one capsule by mouth once a day Active Aspirin EC 81 MG Oral Tablet Delayed ReleaseIndications :Paroxysmal atrial fibrillation (HCC),Coronary artery disease involving [place] coronary artery of [place] heart without angina pectoris,Dyslipide daylin, goal LDL below 70,HTN, goal below 140/90 Take 1 Tab by mouth daily. 07/13/2021 Active Probiotic (Lactobacillus) Oral Capsule Take 1 Capsule by mouth daily. 30 Capsule 12/05/2021 Active Nitroglycerin 0.4 MG Sublingual Tablet Sublingual (Nitrostat)Indicat ions:Abnormal cardiac CT angiography,Paroxy smal atrial fibrillation (HCC),HTN, goal below 140/80,Dyslipidemi a, goal LDL below 70,JOLANTA (obstructive sleep apnea) place one tablet under the tongue every 5 minutes as needed for chest pain. take up to 3 doses in 15 minutes 25 Tablet 11 10/23/2022 Active Budesonide 32 MCG/ACT Nasal SuspensionIndicati ons:Chronic sinusitis, unspecified location,Acute recurrent sinusitis, unspecified location Administer 2 Sprays into each nostril in the morning. 5 mL 3 11/17/2022 Active BiPAP every night at bedtime. Active Saline Nasal [place] 0.65 % Nasal Solution ([place]) Administer 1 [place] into nostril as needed for Congestion. Active Albuterol Sulfate (2.5 MG/3ML) 0.083% Inhalation Nebulization Solution (Proventil)Indicat ions:Bronchitis, complicated,Chroni c bronchitis, unspecified chronic bronchitis type (HCC) use 1 nebulizer vial as needed for cough, shortness of breath, and wheeze 75 mL 10/16/2023 Active Ipratropium-Alb[place] rol 0.5-2.5 (3) MG/3ML Inhalation Solution (Duoneb)Indication s:Bronchitis, complicated,Chroni c bronchitis, unspecified chronic bronchitis type (HCC) INHALE 1 VIAL VIA NEBULIZER EVERY 6 HOURS NEEDED FOR WHEEZING 90 mL 3 10/16/2023 Active Praluent 75 MG/ML Subcutaneous Solution Auto-injector (Alirocumab)Indica tions:Dyslipidemia , goal LDL below 70 Inject 75 mg (1 pen) under the skin every 14 days. 6 mL 3 10/16/2023 Active Levothyroxine Sodium 100 MCG Oral Tablet (Levoxyl) take one tablet by mouth daily at least 30 minutes before breakfast and other medications 90 Tablet 3 01/27/2024 Active Triamcinolone Acetonide 55 MCG/ACT Nasal Aerosol (Nasacort Allergy 24HR) Administer into nostril daily as needed. Active Famotidine 20 MG Oral Tablet (Pepcid) TAKE 1 TABLET BY MOUTH TWICE DAILY 60 Tablet 5 02/27/2024 Active Zolpidem Tartrate 10 MG Oral Tablet (Ambien) Take 1 Tablet by mouth at bedtime as needed for Sleep. [place] brand 30 Tablet 3 04/14/2024 Active Lisinopril 20 MG Oral Tablet (Prinivil) Take 1 Tablet by mouth in the morning. 90 Tablet 2 04/14/2024 Active HYDROmorphone HCl 2 MG Oral Tablet (Dilaudid)Indicati ons:Post laminectomy syndrome Take 1 Tablet by mouth every 6 hours as needed for Pain, Moderate or Pain, Severe. 30 Tablet 05/07/2024 Active Albuterol Sulfate HFA 108 (90 Base) MCG/ACT Inhalation Aerosol Solution Inhale 2 Puffs by mouth every 4 hours as needed for Wheezing. 18 g 3 05/22/2024 Active hydroCHLOROthiazid e 12.5 MG Oral CapsuleIndications :HTN, goal below 130/80 1 tablet 2 days per week. 28 Capsule 3 05/22/2024 Active Baclofen 20 MG Oral TabletIndications: Whiplash injury to neck, subsequent encounter Take 1 Tablet by mouth in the morning and 1 Tablet at noon and 1 Tablet before bedtime. 30 Tablet 06/19/2024 Active Full Kit Nebulizer Set Use with Nebulizer Medication EVERY SIX HOURS WHILE AWAKE as directed. Dx Code: J44.9 1 Each 3 06/30/2024 Active LORazepam 0.5 MG Oral Tablet (Ativan) Take 1 Tablet by mouth every 6 hours as needed for Anxiety or Other (muscle spasm). 30 Tablet 1 07/07/2024 Active Albuterol Sulfate 0.63 MG/3ML Inhalation Nebulization Solution (Accuneb) Inhale 1 Vial via nebulizer every 6 hours as needed for Wheezing or Shortness of Breath. 360 mL 07/08/2024 4 Active Ipratropium [place] 0.02 % Inhalation Solution (Atrovent) Inhale 2.5 mL via nebulizer every 6 hours as needed for Wheezing. 300 mL 07/08/2024 4 Active Hydrocortisone 1 % External CreamIndications:P rimary malignant neoplasm of lung, unspecified laterality (HCC) Apply topically to affected area 2 times a day. Apply twice daily for 6 weeks 120 g 1 07/14/2024 Active HYDROcodone Bit-Homatrop MBr 5-1.5 MG/5ML Oral Solution (Hycodan) Take 5 mL by mouth every 6 hours as needed for Cough. 473 mL 07/21/2024 Active Osimertinib Mesylate 80 MG Oral Tablet (Tagrisso)Indicati ons:Primary malignant neoplasm of lung, unspecified laterality (HCC) Take 1 Tablet by mouth in the morning. Take medication about same time every day, with or without food.. 30 Tablet 5 07/18/2024 Active Ondansetron HCl 8 MG Oral Tablet (Zofran) Take 1 Tablet by mouth every 8 hours as needed for Nausea. 20 Tablet 2 07/22/2024 Active Acyclovir 400 MG Oral Tablet (Zovirax) TAKE 1 TABLET BY MOUTH 3 TIMES A DAY FOR 5-7 DAYS NEEDED FOR COLD SORES 60 Tablet 11 11/24/2022 4 Discontinue d(Medicatio n List Clean Up) predniSONE 20 MG Oral Tablet (Deltasone)Indicat ions:Whiplash injury to neck, subsequent encounter Take 3 Tablets by mouth in the morning for 5 days. 15 Tablet 06/19/2024 4 Discontinue d(Medicatio n List Clean Up) Hospital, Clinic, or Other Facility Administered Medication Ordered Dose Route Frequency Start Date End Date Status Albuterol Sulfate (Proventil) (5 MG/ML) 0.5% *conc* inhalation solution 2.5 mgIndications:Mass of left lung,Chronic cough 2.5 mg NEBULIZER PRN 06/12/2024 06/12/2025 A ctive Albuterol Sulfate (Proventil) (2.5 MG/3ML) 0.083% inhalation solution 2.5 mgIndications:Mass of left lung,Chronic cough 2.5 mg NEBULIZER PRN 06/12/2024 06/12/2025 A ctive documented as of this encounter (statuses as of 07/24/2024) Active Problems Problem Noted Date Diagnosed Date COPD, group B, by GOLD 2017 classification 07/07 Overview: Per COPD GOLD Classification Primary lung cancer 06/17/2024 Overview: 3 cm left apex lesion with extensive lymph nodes, small pleural effusion Coronary artery disease invo lving [place] coronary artery of [place] heart with angina pectoris 03/25/2023 Acquired absence of other sp ecified parts of digestive tract 11/10/2022 Arthrodesis status 11/10/2022 Complication of anesthesia 11/10/2022 Compression fracture of T12 vertebra 11/10/2022 Discitis 11/10/2022 Gout 11/10/2022 History of lumbar fusion 11/10/2022 Inflammation of sacroiliac joint 11/10/2022 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 Increased risk for Hereditary Cardiomyopathy. Please click the link below for a brief summary of current clinical management recommendations for Hypertrophic Cardiomyopathy. MYH7 Coronary artery disease invo lving [place] coronary artery of [place] heart without angina pectoris 09/26/2021 MISHRA (dyspnea on exertion) 05/02/2021 Generalized edema 05/02/2021 Arthritis of carpometacarpal (CMC) joint of both thumbs 08/17/2020 Primary osteoarthritis of both knees 08/17/2020 Pseudogout 08/17/2020 Statin intolerance 06/03/2018 Post laminectomy syndrome 01/13/2015 HTN, goal below 140/90 06/06/2013 Paroxysmal atrial fibrillation 08/05/2012 Asthma, moderate persistent 12/12/2010 Degeneration of cervical intervertebral disc NONALLERGIC RHINITIS 11/15/2009 Gastroesophageal reflux dise ase with esophagitis without hemorrhage 11/15/2009 History of tobacco use 11/15/2009 Temporomandibular joint disorder 11/15/2009 Gastroparesis 09/16/2008 Irritable bowel syndrome 02/14/2007 ADVANCE DIRECTIVE INFORMATION 04/20/2005 Overview: No, Advance Directive brochure given to patient at prior appointment. Dyslipidemia, goal LDL below 70 documented as of this encounter (statuses as of 07/24/2024) Resolved Problems Problem Noted Date Diagnosed Date Resolved Date Osteomyelitis 10/10/2019 08/16/2020 Chronic obstructive pulmonary disease 09/09/2019 07/10/2024 Overview: Per COPD GOLD Classification Acute mid back pain 11/29/2018 09/26/20 Superficial incisional infec tion of surgical site 01/09/2018 06/13/2018 Cellulitis 01/09/2018 06/13/2018 Breast pain 10/12/2016 11/29/2017 Dyslipidemia, goal LDL below 130 09/12/2011 01/10/2021 Dysphagia, pharyngoesophageal phase 11/15/2009 11/04/2020 RECURRENT ACUTE SINUSITIS 11/15/2009 Otalgia 11/15/2009 11/29/2017 Epistaxis 11/15/2009 01/01/2018 Hypothyroidism 09/07/2008 03/18/2022 Anticoagulation management encounter 01/16/2008 12/12/2010 Pulmonary embolus 01/16/2008 09/14/2020 Hypertrophy of breast 08/26/20032017 documented as of this encounter (statuses as of 07/24/2024) Immunizations Name Administration Dates Next Due COVID-19 mRNA, LNP-s, No Pre serve, 2-Dose Series (MexxBooks) 10/29/2021,02/07/2021,01/03/2021 PPD 04/27/2010, 0,04/08/2010,04/08,10/25/2006,10/25/2006 Pneumococcal Polysaccharide PPV23 (Pneumovax) 10/21/2016 Season Influenza, Quad, PF, Adjuvanted, 65+ Yrs, IM (FLUAD) 08/16/2020 Seasonal Influenza Virus Vac cine, Unspecified Formulation 10/10/2019 Seasonal Influenza, PF, 6 M & above, IM , (FluLaval or Fluzone) 10/10/2019 Seasonal Influenza, Quadriva lent Hd (Fluzone Hd) 08/14/2023,09/12/2022,09/06/2021 Seasonal Influenza, Quadriva lent, No Preserve, IM 10/21/2016 Seasonal Influenza, Trivalen t, (IIV3), with Preserv, (Fluzone) 09/09/2014,12/30/2010,10/18/2007 TDAP, Age 7 and older, IM (Adacel) 06/09/2009 documented as of this encounter Social History Tobacco Use Types Packs/Day Years Used Date Smoking Tobacco: Former Cigarettes 0.3 40 0 01/24/1970 - 01/24/2010 Smokeless Tobacco: Never Comments:no passive smoke ex posures Alcohol Use Standard Drinks/Week Comments Yes 1.7 (1 standard drink = 0.6 oz p ure alcohol) 1 drink a day PHQ-2 Answer Date Recorded PHQ Adult Total Score 0 08/09/2022 Utilities Answer Date Recorded Do you have trouble paying y our heating, water, or electric bill? (Adult - for ages 18 years and over) Not on file 05/13/2024 Is your family able to pay t he heat, water, or electric bill? (Household - for ages 0-17 years) Not on file 05/13/2024 Does your family have access to good internet? (Household - for ages 0-17 years) Not on file 05/13/2024 Social Connections Answer Date Recorded How often do you feel lonely or isolated from those around you? (Adult - for ages 18 years and over) Not on file 05/13/2024 Sex and Gender Information Value Date Recorded Sex Assigned at Not on file Gender Identity Not on file Sexual Orientation Not on file Job Start Date Occupation Industry Not on file Not on file Not on file documented as of this encounter Functional Status Functional Status Response Date of Assess ment Are you deaf or do you have serious difficulty h earing? No 01/09/2018 Are you blind or do you have serious difficulty seeing, even when wearing glasses? No 01/09/2018 Do you have serious difficul ty walking or climbing stairs? (5 years old or older) No 01/09/2018 Do you have difficulty dress ing or bathing? (5 years old or older) No 01/09/2018 Because of a physical, menta l, or emotional condition, do you have difficulty doing errands alone such as visiting a doctor s office or shopping? (15 years old or older) No 01/09/20 18 Cognitive Status Response Date of Assessm ent Because of a physical, menta l, or emotional condition, do you have serious difficulty concentrating, remembering, or making decisions? (5 years old or older) No 01/09/2018 documented as of this encounter Progress Notes * Renay Ferrer, [facility] - 07/24/2024 10:08 AM EDT MEDICATION THERAPY MANAGEMENT OSIMERTINIB TREATMENT EDUCATION NOTE Florecita Quintana [phone] Patient Phone Numbers Preferred Lab: [facility]: [facility] ([facility] copy below into specialty comments) Treatment consent complete: yes Date: 07/08/24 Precertification complete: yes Date: 07/14/24 Communication: Spoke to: Patient Treatment: Medication: Osimertinib (Tagrisso) Indication/Staging/Diagnosis Code: NSCLC, 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 Hawk Simmons Supportive Care Meds: Ondansetron Prochlorperazine Prophylactic Meds: Hydrocortisone Relevant Chronic Medications: Category Medications Pertinent Notes Antihypertensives HCTZ 12.5mg 2 days per week Lisinopril 20mg daily Per cardiology Per PCP Anticoagulation ASA 81mg daily Per cardiology Thyroid Levothyroxine 100mcg daily Per PCP Treatment History: None Medication education: Confirmed pt has received information regarding goals and duration of therapy: yes Reviewed dosing and administration: yes Reviewed importance of medication compliance (document recommendations if barriers identified): yes Reviewed appropriate storage conditions: yes Reviewed handling precautions: yes Reviewed handling body fluids and waste: yes Reviewed side effects, monitoring, and supportive care measures: yes Rash/Dry Skin This medication may cause an acne-like rash. The most common places for this to occur are on the face and chest. It is not treated the same as acne In order to prevent the rash, you will use a topical steroid and anti- inflammatory antibiotics for at least the first 6 weeks of treatment When to call clinic: If rash develops Nail Changes This medication may cause nail changes such as redness, swelling and infection Your nails should stay trimmed and kept clean Gloves should be worn for housecleaning and gardening to minimize damage and prevent infection Biting, chewing, or picking at your nails can increase risk for infection Nail ukrainian and imitation fingernails should not be worn until the nails have returned to normal If you notice any irritation developing around your nails, it may be helpful to soak your fingers in warm, soapy water When to call clinic: If you suspect your nails are infected Diarrhea This medication can cause loose stools You can purchase OTC loperamide (Imodium A-D) to help manage this side effect (4 mg x 1, followed by 2 mg Q4H or after every loose stool, not to exceed 16 mg/day) Drink plenty of fluids to prevent dehydration, ideally 8-10 glasses per day (unless a healthcare provider has instructed you to limit your fluid intake due to other health conditions) Dietary modifications: eat bland, low fiber foods such as bananas, rice, applesauce, and toast (BRAT diet), avoid dairy, avoid spicy, greasy or fatty foods When to call clinic: If approaching maximum dose of loperamide and still having diarrhea or if you have any s/sx of dehydration; if there is a concern for infectious diarrhea (especially in setting of neutropenia) Pneumonitis This medication can rarely cause inflammation of the lung tissue. Monitor for and report any of the following symptoms: Shortness of breath Dry cough Fevers Chest pain that worsens with breathing Arrhythmia This medication may cause your heart to beat abnormally When to call clinic: If you are having heart palpitations or heart beating abnormally, SOB, chest pain, lightheadedness, fainting Confirmed pt has received written information about drug therapy: yes Changes to medication list since last visit: no Drug interaction assessment: Treatment plan and current medication list evaluated for drug-drug interactions. No clinically significant drug interaction identified Does patient rely on caregiver for medication management? no Assessment and plan: Pt verbalized understanding to information provided. All questions answered to the patient's satisfaction Pt was educated about role of Oral Chemotherapy Clinic and pharmacist in medication management, andplan for follow up. Per OV 07/08/24, pt has h/o headache and DJD Pt voiced concern about starting treatment as she lives alone Provided emotional support Inquiring if she can obtain influenza vaccine Advised pt to obtain annual influenza vaccine no earlier than August 2024 as pt will be on osimertinib for a while to rule out vaccine versus medication side effects. Pt replied with understanding States she has been using ondansetron daily due to baseline nausea Educated pt ondansetron can contribute to Qtc prolongation and advised to take as needed Educated pt on prochlorperazine as alternative antiemetic as this dose not cause Qtc prolongation Counseled pt on sedating effects and advised to not drive until effects are known RX sent to pharmacy Pt replied with understanding Per [facility] encounter 07/14/24 addendum 07/24/24, pt approved through manager corporate responsibility ([facility]) and medication should ship within the next 6-8 days Requested pt to send MyG once RX received MTM to follow up in 2 weeks to confirm start date and tolerability Follow up: 2 weeks Renay Ferrer, PharmD, BCOP Clinical Pharmacist, [facility] Oral Chemotherapy [facility] 07/24/2024, 11:07 AM Monitoring Parameters: Estimated CrCl Serum creatinine: 0.7 mg/dL 07/08/24 1605 Estimated creatinine clearance: 66 mL/min Hepatitis panel Latest Reference Range & Units 07/08/24 16:05 Hepatitis B Surface Antigen Negative Negative Hepatitis B Surface Antibody, Quantitative mIU/mL <3.5 HEPATITIS B SURFACE ANTIBODY Rpt Hepatitis B Surface Antibody, Interpretation NOT immune to Hepatitis B Virus Hepatitis B Surface Antibody, Qualitative Negative Hepatitis B Core Antibodies IgG and IgM Negative Negative test N/A - postmenopausal Suggested lab monitoring Suggested lab monitoring: baseline ECG and ECHO (can consider periodicallywhile on treatment based on risk factors or development of s/sx); test (in females of reproductive potential prior to therapy initiation); electrolytes periodically Date QTc 07/08/24 445 ms Date LVEF 07/15/24 60% Treatment Parameters Qtc < 500 ms Pertinent labs: N/A Time Spent on Encounter: > 31 minutes Encounter Group: Oncology Encounter Interventions Item Category: Oral Chemotherapy Osimertinib Problem/Rationale: Indication: Needs additional medication therapy - Untreated condition Education: Initial education Pharmacist Intervention(s): Education provided Magnitude of Intervention: Monitoring with direction (Level 1) Second Item Second Item Category: Anti-Emetic Ondansetron Problem/Rationale: Safety: Dosage too high - Frequency inappropriate Education: Clarification Pharmacist Intervention(s): Education provided and Frequency decreased Magnitude of Intervention: Modification of medication for asymtomatic patients (Level 2) Third Item Third Item Category: Anti-Emetic Prochlorperazine Problem/Rationale: Indication: Needs additional medication therapy - Untreated condition, - Synergistic therapy Education: Initial education Pharmacist Intervention(s): Education provided and Medication prescribed Magnitude of Intervention: Modification of medication for asymtomatic patients (Level 2) Fourth Item Fourth Item Category: Topicals Hydrocortisone Problem/Rationale: Education: Initial education Pharmacist Intervention(s): Education provided Magnitude of Intervention: Monitoring with direction (Level 1) documented in this encounter Plan of Treatment Upcoming Encounters Date Type Department Care Team (Andrew st Contact Info) Description 08/07/2024 9:45 AM EDT Pharmacy Pharmacy Hematology Oncology [facility] [address] [place] [address] [place], [facility] Hem/Onc [address] [place] [address] 10/08/2024 10:20 AM EST Office Visit Pulmonary Medicine, [facility] [address] [place] [address] Rico Wall MD [address] [place] [phone] Health Maintenance Due Date Last Done Comments Alpha-1 Antitrypsin 1971 Cologuard 1998 Fecal Occult Blood Test 1998 Sigmoidoscopy 1998 Zoster Vaccines (1 of 2) 2003 Pneumococcal Vaccine: 65+ Years (2 of 2 - PCV) 10/21/2017 10/21/2016 Adult Wellness Visit 2019 DTap/Tdap Vaccines (2 - Td or Tdap) 06/09/2019 06/09/2009 COVID-19 Vaccine ( season) 2023 10/29/2021, 02/07/2021, 01/03/2021 Depression Screening 08/09/2023 08/09/2022 Mammogram 05/07/2024 05/07/2023, 04/26, 04/13/2022, Additional history exists Influenza Vaccine (FLU shot) (#1) 2024 08/14/2023, 09/12/2022, 09/06/2021, Additional history exists TSH 01/02/2025 01/02/2024, 02/24, 02/22/2023, Additional history exists O2 ASSESSMENT COMPLETED IN PAST YEAR FOR COPD 06/25/2025 06/25/2024 GFR 07/08/2025 07/08/2024, 04/27, 01/31/2024, Additional history exists Albumin/Creatinine Ratio 02/28/2026 02/28/2023 DXA Scan 06/11/2030 06/11/2023, 08/27, 08/14/2012, Additional history exists Colonoscopy 02/07/2034 02/08/2024, 01/24, 09/11/2016, Additional history exists Colorectal Cancer Screening 02/07/2034 RETIRED - COLONOSCOPY-EVERY 5 YRS AGES 18-100 Discontinued 02/08/2024, 02/08/2024, 09/11/2016, Additional history exists HPV (Gardasil) Vaccine Aged Out No lo nger eligible based on patient's age to complete this topic Hepatitis B Vaccine Aged Out No longe r eligible based on patient's age to complete this topic MENINGOCOCCAL (MENACTRA/MENVEO) Aged Out No longer eligible based on patient's age to complete this topic documented as of this encounter Medical Devices Not on filedocumented as of this encounter Visit Diagnoses Diagnosis Primary malignant neoplasm of lung, unspecified laterality (HCC)- Primary documented in this encounter Advance Directives * Full Code (Latest Code Status on File) Date Activated Date Inactivated Comments 01/09/2018 5:30 AM 01/10/2018 4:28 PM Question Answer Comments Discussion of Advance Directives occurred with: Not Discussed Does the patient have a Living Will? No Does the patient have Health Care Power of Attor venkata? No * Full Code Date Activated Date Inactivated Comments 12/26/2017 7:09 AM 12/30/2017 7:01 PM Question Answer Comments Discussion of Advance Directives occurred with: Not Discussed Care Teams Clam Bed Laborer Relationship Specialty Start Date End Date Cj Rico III, MD [address] [place] [address] PCP - General Family Medicine 05/19/14 documented as of this encounter
--- OUTSIDE RECORDS SUMMARY | 2024-07-27 08:34 | External Medical Summary | Summary of Care ---
Author Name Unknown Organization [facility] Address [address] [place] [address] Phone [phone] Care Team Providers Care Conche Loader And Unloader Name Role Phone Trisha DUTTA MD, Cj Cote Primary Care Provider [phone] Reason for Visit * Reason Onset Date Comments Medication Refill 07/24/2024 Encounter Details Date Type Department Care Team (Late st Contact Info) Description 07/24/2024 Refill Hematology/Oncology [facility] [address] [facility] [place] [address] Cortez Simmons MD [address] [facility] [place] [address] Allergies Active Allergy Reactions Criticality Noted Date [...] Aspirin EC 81 MG Oral Tablet Delayed ReleaseIndications: Paroxysmal atrial fibrillation (HCC),Coronary artery disease involving [place] coronary artery of [place] heart without angina pectoris,Dyslipidem ia, goal LDL below 70,HTN, goal below 140/90 Take 1 Tab by mouth daily. 07/13/2021 Active Probiotic (Lactobacillus) Oral Capsule Take 1 Capsule by mouth daily. 30 Capsule 12/05/2021 Active Nitroglycerin 0.4 MG Sublingual Tablet Sublingual (Nitrostat)Indicati ons:Abnormal cardiac CT angiography,Paroxys mal atrial fibrillation (HCC),HTN, goal below 140/80,Dyslipidemia , goal LDL below 70,JOLANTA (obstructive sleep apnea) place one tablet under the tongue every 5 minutes as needed for chest pain. take up to 3 doses in 15 minutes 25 Tablet 11 10/23/2022 Active Budesonide 32 MCG/ACT Nasal SuspensionIndicatio ns:Chronic sinusitis, unspecified location,Acute recurrent sinusitis, unspecified location Administer 2 Sprays into each nostril in the morning. 5 mL 3 11/17/2022 Active BiPAP every night at bedtime. Active Saline Nasal [place] 0.65 % Nasal Solution ([place]) Administer 1 [place] into nostril as needed for Congestion. Active Albuterol Sulfate (2.5 MG/3ML) 0.083% Inhalation Nebulization Solution (Proventil)Indicati ons:Bronchitis, complicated,Chronic bronchitis, unspecified chronic bronchitis type (HCC) use 1 nebulizer vial as needed for cough, shortness of breath, and wheeze 75 mL 10/16/2023 Active Ipratropium-Albuter ol 0.5-2.5 (3) MG/3ML Inhalation Solution (Duoneb)Indications :Bronchitis, complicated,Chronic bronchitis, unspecified chronic bronchitis type (HCC) INHALE 1 VIAL VIA NEBULIZER EVERY 6 HOURS NEEDED FOR WHEEZING 90 mL 3 10/16/2023 Active Praluent 75 MG/ML Subcutaneous Solution Auto-injector (Alirocumab)Indicat ions:Dyslipidemia, goal LDL below 70 Inject 75 mg [...] mouth at bedtime as needed for Sleep. [place] brand 30 Tablet 3 04/14/2024 Active Lisinopril 20 MG Oral Tablet (Prinivil) Take 1 Tablet by mouth in the morning. 90 Tablet 2 04/14/2024 Active HYDROmorphone HCl 2 MG Oral Tablet (Dilaudid)Indicatio ns:Post laminectomy syndrome Take 1 Tablet by mouth every 6 hours as needed for Pain, Moderate or Pain, Severe. 30 Tablet 05/07/2024 Active Albuterol Sulfate HFA 108 (90 Base) MCG/ACT Inhalation Aerosol Solution Inhale 2 Puffs by mouth every 4 hours as needed for Wheezing. 18 g 3 05/22/2024 Active hydroCHLOROthiazide 12.5 MG Oral CapsuleIndications: HTN, goal below 130/80 1 tablet 2 days per week. 28 Capsule 3 05/22/2024 Active Baclofen 20 MG Oral TabletIndications:W hiplash injury to neck, subsequent encounter Take 1 [...] or Shortness of Breath. 360 mL 07/08/2024 08/07/2024 Active Ipratropium [place] 0.02 % Inhalation Solution (Atrovent) Inhale 2.5 mL via nebulizer every 6 hours as needed for Wheezing. 300 mL 07/08/2024 08/07/2024 Active Hydrocortisone 1 % External CreamIndications:Pr imary malignant neoplasm of lung, unspecified laterality (HCC) Apply topically to affected area 2 times a day. Apply twice daily for 6 weeks 120 g 1 07/14/2024 Active HYDROcodone Bit-Homatrop MBr 5-1.5 MG/5ML Oral Solution (Hycodan) Take 5 mL by mouth every 6 hours as needed for Cough. 473 mL 07/21/2024 Active Osimertinib Mesylate 80 MG Oral Tablet (Tagrisso)Indicatio ns:Primary malignant neoplasm of lung, unspecified laterality (HCC) Take 1 Tablet by mouth in the morning. Take medication about same time every day, with or without food.. 30 Tablet 5 07/18/2024 Active Ondansetron HCl 8 MG Oral Tablet (Zofran) Take 1 Tablet by mouth every 8 hours as needed for Nausea. 20 Tablet 2 07/22/2024 Active Prochlorperazine Maleate 10 MG Oral Tablet (Compazine) Take 1 Tablet by mouth every 6 hours as needed for Nausea. 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 Increased risk for Hereditary Cardiomyopathy. Please click the link below for a brief summary of current clinical management recommendations for Hypertrophic Cardiomyopathy. MYH7 Coronary artery disease invo lving [place] coronary artery of [place] heart without angina pectoris 09/26/2021 MISHRA (dyspnea [...] mRNA, LNP-s, No Pre serve, 2-Dose Series (Lessno) 10/29/2021,02/07/2021,01/03/2021 PPD 04/27/2010, 0,04/08/2010,04/08,10/25/2006,10/25/2006 Pneumococcal Polysaccharide PPV23 [...] (15 years old or older) No 01/09/20 Cognitive Status Response Date of Assessm ent Because of a physical, menta l, or emotional condition, do you have serious difficulty concentrating, remembering, or making decisions? (5 years old or older) No 01/09/2018 documented as of this encounter Miscellaneous Notes * Telephone Encounter - Renay Ferrer RPh - 07/24/2024 11:08 AM EDT Prochlorperazine RX per 07/24 MTM encounter documented in this encounter Plan of Treatment Upcoming Encounters Date Type Department Care Team (Late st Contact Info) Description 07/24/2024 1:45 PM EDT Pharmacy Pharmacy Hematology Oncology [facility] [place] [address] [place] [address] [facility], [facility] Hem/Onc [address] [place] [address] Primary malignant neoplasm of lung, unspecified laterality (HCC)* 08/07/2024 9:45 AM EDT Pharmacy Pharmacy Hematology Oncology [facility] [place] [address] [place] [address] [facility], [facility] Hem/Onc [address] [place] [address] 10/08/2024 10:20 AM EST Office Visit Pulmonary Medicine, [facility] [address] [place] [address] Rico Wall MD [address] [place] [address] Health Maintenance Due Date Last Done Comments [...] Not on filedocumented as of this encounter Advance Directives * Full Code [...] Directives occurred with: Not Discussed Care Teams Conche Loader And Unloader Relationship Specialty Start Date End Date Cj Rico III, MD [address] [place] [address] PCP - General Family Medicine 05/19/14 documented as of this encounter
--- OUTSIDE RECORDS SUMMARY | 2024-07-27 08:34 | External Medical Summary | Summary of Care ---
Author Name Unknown Organization [facility] Address [address] [place] [address] Phone [phone] Care Team Providers Care Machine Etcher Name Role Phone Trisha DUTTA MD, Cj Cote Primary Care Provider [phone] Reason for Visit * Reason Onset Date Comments Advice 07/22/2024 Simmons Encounter Details Date Type Department Care Team (Late st Contact Info) Description 07/22/2024 Telephone Hematology/Oncology [facility] [address] [place] [address] Services, Scheduling [address] [place] [address] Advice ([place]) Allergies Active Allergy Reactions Criticality Noted Date Comments Losartan Potassium Edema face/lips/tongue High 06/30 Fentanyl Itching 08/30/2016 Oxycodone 06/07/2023 Itching all over Penicillins Edema face/lips/tongue High 11/15/2001 Sulfa Antibiotics Other (Please comment) 2000 Urinary frequency Topiramate 04/09/2023 Other reaction(s): Blurry Vision Tramadol Other (Please comment) 01/01/2018 hallucinations documented as of this encounter (statuses as of 07/25/2024) Medications Medication Sig Dispensed Refills Start Date [...] :Paroxysmal atrial fibrillation (HCC),Coronary artery disease involving [place] coronary artery of [place] heart without angina pectoris,Dyslipide [place], goal LDL [...] every night at bedtime. Active Saline Nasal [place] 0.65 % Nasal Solution ([place]) Administer 1 [place] into nostril as needed for Congestion. Active [...] mouth at bedtime as needed for Sleep. [place] brand 30 Tablet 3 04/14/2024 Active Lisinopril [...] Breath. 360 mL 07/08/2024 4 Active Ipratropium [place] 0.02 % Inhalation Solution (Atrovent) Inhale 2.5 [...] as of this encounter (statuses as of 07/25/2024) Active Problems Problem Noted Date Diagnosed Date COPD, group B, by GOLD 2017 classification 07/07 Overview: Per COPD GOLD Classification Primary lung cancer 06/17/2024 Overview: 3 cm left apex lesion with extensive lymph nodes, small pleural effusion Coronary artery disease invo lving jamul coronary artery of jamul heart with angina pectoris 03/25/2023 Acquired absence of other sp ecified parts of digestive tract 11/10/2022 Arthrodesis status 11/10/2022 Complication of anesthesia 11/10/2022 Compression fracture of T12 vertebra 11/10/2022 Discitis 11/10/2022 Gout 11/10/2022 History of lumbar fusion 11/10/2022 Inflammation of sacroiliac joint 11/10/2022 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 Increased risk for Hereditary Cardiomyopathy. Please click the link below for a brief summary of current clinical management recommendations for Hypertrophic Cardiomyopathy. MYH7 Coronary artery disease invo lving [place] coronary artery of jamul heart without angina pectoris 09/26/2021 MISHRA (dyspnea [...] as of this encounter (statuses as of 07/25/2024) Resolved Problems Problem Noted Date Diagnosed Date [...] as of this encounter (statuses as of 07/25/2024) Immunizations Name Administration Dates Next Due COVID-19 mRNA, LNP-s, No Pre serve, 2-Dose Series (Pfizer) 10/29/2021,02/07/2021,01/03/2021 PPD 04/27/2010, 0,04/08/2010,04/08,10/25/2006,10/25/2006 Pneumococcal Polysaccharide PPV23 [...] Influenza, Trivalen t, (IIV3), with Preserv, (Fluzone) 09/09/2014,12/30/2010,10/18/2007,01/04 TDAP, Age 7 and older, IM (Adacel) [...] encounter Miscellaneous Notes * Telephone Encounter - Bebe Dean RN - 07/24/2024 8:29 AM EDT Lucinda Fan is helping patient with copay assistance per referral. * Telephone Encounter - Jay Freed, RN - 07/23/2024 8:05 AM EDT [facility]- Can we please look into this and assist, we are happy to provide anything assistance may need.Thanks. * Telephone Encounter - Deya Bach OSA - 07/22/2024 11:40 AM EDT Pt's daughter Tamiko calling in. She states patient's Tagrisso medication is very expensive with a copay of 1,000 dollars. She states she reached out to [employer] for copay assistance. Stephanie with [employer] requests pt's recent office notes, labs and Tagrisso RX be faxed to her at [phone]. You can also call Stephanie at [phone] if needed. Please advise. documented in this encounter Plan of Treatment Upcoming Encounters Date Type Department Care Team (Late st Contact Info) Description 08/07/2024 9:45 AM EDT Pharmacy Pharmacy Hematology Oncology [facility] [address] [place] [address] [facility] Hem/Onc [address] [place] [address] 10/08/2024 10:20 AM EST Office Visit Pulmonary Medicine, [facility] [address] [facility] [place] [address] Rico Wall MD [address] [facility] [place] [address] Health Maintenance Due Date Last Done Comments Alpha-1 Antitrypsin 1971 Cologuard 1998 Fecal Occult Blood Test 1998 Sigmoidoscopy 1998 Zoster Vaccines (1 of 2) 2003 Pneumococcal Vaccine: 65+ Years (2 of 2 - PCV) 10/21/2017 10/21/2016 Adult Wellness Visit 2019 DTap/Tdap Vaccines (2 - Td or Tdap) 06/09/2019 06/09/2009 COVID-19 Vaccine (4 - 2022- season) 2023 10/29/2021, 02/07/2021, 01/03/2021 Depression Screening [...] Directives occurred with: Not Discussed Care Teams Machine Etcher Relationship Specialty Start Date End Date Trisha DUTTA, Cj Cote MD [address] [place] [address] PCP - General Family Medicine 05/19/14 documented as of this encounter
--- OUTSIDE RECORDS SUMMARY | 2024-07-27 08:35 | External Medical Summary | Summary of Care ---
Author Name Unknown Organization [facility] Address [address] [place] [address] Phone [phone] Care Team Providers Care Hydro Generation Supervisor Name Role Phone Trisha DUTTA MD, Cj Cote Primary Care Provider [phone] Reason for Visit * Reason Onset Date Comments Advice 07/22/2024 Simmons Encounter Details Date Type Department Care Team (Late st Contact Info) Description 07/22/2024 Telephone Hematology/Oncology [facility] [address] [place] [address] Services, Scheduling [address] [place] [address] Advice ([place]) Allergies Active Allergy Reactions Criticality [...] Paroxysmal atrial fibrillation (HCC),Coronary artery disease involving [place] coronary artery of [place] heart without angina pectoris,Dyslipidem ia, goal LDL [...] the morning. 5 mL 3 11/17/2022 Active Acyclovir 400 MG Oral Tablet (Zovirax) TAKE 1 TABLET BY MOUTH 3 TIMES A DAY FOR 5-7 DAYS NEEDED FOR COLD SORES 60 Tablet 11 11/24/2022 Active Additional Information Patient not taking.Reported on 06/25/2024 BiPAP every night at bedtime. Active Saline Nasal [place] 0.65 % Nasal Solution ([place]) Administer 1 [place] into nostril as needed for Congestion. Active [...] mouth at bedtime as needed for Sleep. [place] brand 30 Tablet 3 04/14/2024 Active Lisinopril [...] Breath. 360 mL 07/08/2024 08/07/2024 Active Ipratropium [place] 0.02 % Inhalation Solution (Atrovent) Inhale 2.5 [...] for Nausea. 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 Increased risk for Hereditary Cardiomyopathy. Please click the link below for a brief summary of current clinical management recommendations for Hypertrophic Cardiomyopathy. MYH7 Coronary artery disease invo lving [place] coronary artery of [place] heart without angina pectoris 09/26/2021 MISHRA (dyspnea [...] mRNA, LNP-s, No Pre serve, 2-Dose Series (Mobilitrix) 10/29/2021,02/07/2021,01/03/2021 PPD 04/27/2010, 0,04/08/2010,04/08,10/25/2006,10/25/2006 Pneumococcal Polysaccharide PPV23 (Pneumovax) 10/21/2016 Season Influenza, Quad, PF, Adjuvanted, 65+ Yrs, IM (FLUAD) 08/16/2020 Seasonal Influenza Virus Vac cine, Unspecified Formulation 10/10/2019 Seasonal Influenza, PF, 6 M & above, IM , (FluLaval or Fluzone) 10/10/2019 Seasonal Influenza, Quadriva lent Hd (Fluzone Hd) 08/14/2023,09/12/2022,09/06/2021 Seasonal Influenza, Quadriva lent, No Preserve, IM 10/21/2016 Seasonal Influenza, Split, I IV3, With Preserve, Inj 09/09/2014,12/30/2010,10/18/2007,01/04 TDAP, Age 7 and older, IM [...] per referral. * Telephone Encounter - Jay Freed RN - 07/23/2024 8:05 AM EDT [facility]- Can we please look into this and assist, we are happy to provide anything assistance may need.Thanks. * Telephone Encounter - Deya Bach OSA - 07/22/2024 11:40 AM EDT Pt's daughter Tamiko calling in. She states patient's Tagrisso medication is very expensive with a copay of 1,000 dollars. She states she reached out to [employer] for copay assistance. Stephanie with [employer] requests pt's recent office notes, labs and Tagrisso RX be faxed to her at [phone]. You can also call Stephanie at [phone] if needed. Please advise. documented in this encounter Plan of Treatment Upcoming Encounters Date Type Department Care Team (Late st Contact Info) Description 07/24/2024 1:45 PM EDT Pharmacy Pharmacy Hematology Oncology [facility] [address] [place] [address] [facility] Hem/Onc [address] [place] [address] 10/08/2024 10:20 AM EST Office Visit Pulmonary Medicine, [facility] [address] [facility] [place] [address] Rico Wall MD [address] [place] [id number] Health Maintenance Due Date Last Done Comments Alpha-1 Antitrypsin 1971 Cologuard 1998 Fecal Occult Blood Test 1998 Sigmoidoscopy 1998 Zoster Vaccines (1 of 2) 2003 Pneumococcal Vaccine: 65+ Years (2 of 2 - PCV) 10/21/2017 10/21/2016 Adult Wellness Visit 2019 DTap/Tdap Vaccines (2 - Td or Tdap) 06/09/2019 06/09/2009 COVID-19 Vaccine ( - 2022-24 season) 2023 10/29/2021, 02/07/2021, 01/03/2021 Depression Screening [...] Directives occurred with: Not Discussed Care Teams Hydro Generation Supervisor Relationship Specialty Start Date End Date Cj Rico III, MD [address] [facility] [place] [address] PCP - General Family Medicine 05/19/14 documented as of this encounter
--- OUTSIDE RECORDS SUMMARY | 2024-07-27 08:35 | External Medical Summary | Summary of Care ---
Author Name Unknown Organization [facility] Address [address] [place] [address] Phone [phone] Care Team Providers Care Side Trimmer Name Role Phone Trisha DUTTA MD, Cj Cote Primary Care Provider [phone] Reason for Visit * Reason Onset Date Comments Medication Refill 07/18/2024 Encounter Details Date Type Department Care Team (Late st Contact Info) Description 07/18/2024 Refill Hematology/Oncology Treatment, [place] [address] [place] [address] Nisa Simmons MD [address] [place] [address] Primary malignant neoplasm of lung, unspecified laterality (HCC) Allergies Active Allergy Reactions Criticality Noted Date Comments Losartan Potassium Edema face/lips/tongue High 06/30 Fentanyl Itching 08/30/2016 Oxycodone 06/07/2023 Itching all over Penicillins Edema face/lips/tongue High 11/15/2001 Sulfa Antibiotics Other (Please comment) 2000 Urinary frequency Topiramate 04/09/2023 Other reaction(s): Blurry Vision Tramadol Other (Please comment) 01/01/2018 hallucinations documented as of this encounter (statuses as of 07/18/2024) Medications Medication Sig Dispensed Refills Start Date [...] :Paroxysmal atrial fibrillation (HCC),Coronary artery disease involving [place] coronary artery of [place] heart without angina pectoris,Dyslipide daylin, goal LDL [...] every night at bedtime. Active Saline Nasal [place] 0.65 % Nasal Solution ([place]) Administer 1 Miller into nostril as needed for Congestion. Active [...] mouth at bedtime as needed for Sleep. [place] brand 30 Tablet 3 04/14/2024 Active Lisinopril [...] per week. 28 Capsule 3 05/22/2024 Active Ondansetron HCl 8 MG Oral Tablet (Zofran) TAKE 1 TABLET BY MOUTH EVERY 8 HOURS NEEDED FOR NAUSEA 20 Tablet 05/22/2024 Active Baclofen 20 MG Oral TabletIndications: [...] Breath. 360 mL 07/08/2024 4 Active Ipratropium [place] 0.02 % Inhalation Solution (Atrovent) Inhale 2.5 [...] every 6 hours as needed for Cough. 120 mL 07/17/2024 Active Osimertinib Mesylate 80 MG Oral Tablet ([place])Indicati ons:Primary malignant neoplasm of lung, unspecified laterality (HCC) Take 1 Tablet by mouth in the morning. Take medication about same time every day, with or without food.. 30 Tablet 5 07/18/2024 Active Osimertinib Mesylate 80 MG Oral Tablet ([place])Indicati ons:Primary malignant neoplasm of lung, unspecified laterality (HCC) Take 1 Tablet by mouth in the morning. Take medication about same time every day, with or without food.. 30 Tablet 5 07/14/2024 4 Discontinue d(Refill) Hospital, Clinic, or Other Facility Administered Medication [...] as of this encounter (statuses as of 07/18/2024) Active Problems Problem Noted Date Diagnosed Date COPD, group B, by GOLD 2017 classification 07/07 Overview: Per COPD GOLD Classification Primary lung cancer 06/17/2024 Overview: 3 cm left apex lesion with extensive lymph nodes, small pleural effusion Coronary artery disease invo lving [place] coronary artery of [place] heart with angina pectoris 03/25/2023 Acquired absence of other sp ecified parts of digestive tract 11/10/2022 Arthrodesis status 11/10/2022 Complication of anesthesia 11/10/2022 Compression fracture of T12 vertebra 11/10/2022 Discitis 11/10/2022 Gout 11/10/2022 History of lumbar fusion 11/10/2022 Inflammation of sacroiliac joint 11/10/2022 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 Increased risk for Hereditary Cardiomyopathy. Please click the link below for a brief summary of current clinical management recommendations for Hypertrophic Cardiomyopathy. MYH7 Coronary artery disease invo lving [place] coronary artery of [place] heart without angina pectoris 09/26/2021 MISHRA (dyspnea [...] as of this encounter (statuses as of 07/18/2024) Resolved Problems Problem Noted Date Diagnosed Date [...] as of this encounter (statuses as of 07/18/2024) Immunizations Name Administration Dates Next Due COVID-19 mRNA, LNP-s, No Pre serve, 2-Dose Series ([employer]) 10/29/2021,02/07/2021,01/03/2021 PPD 04/27/2010, 0,04/08/2010,04/08,10/25/2006,10/25/2006 Pneumococcal Polysaccharide PPV23 [...] Influenza, Split, I IV3, With Preserve, Inj 09/09/2014,12/30/2010,10/18/2007 TDAP, Age 7 and older, IM [...] encounter Miscellaneous Notes * Telephone Encounter - Chana Carter [facility] - 07/18/2024 2:15 PM EDT Signed Prescriptions: Disp Refills Osimertinib Mesylate 80 MG Oral Tablet (Ta*30 Tab*5 Sig: Take 1 Tablet by mouth in the morning. Take medication about same time every day, with or without food..Authorizing Provider: NISA SIMMONS User: CHANA CARTER * Telephone Encounter - Chana Carter RP - 07/18/2024 2:15 PM EDT RX forwarded to [facility] * Telephone Encounter - Bebe Dean RN - 07/18/2024 2:12 PM EDT Spoke to Lucinda Waltersor- lor for pharmacy elie, but also trying for assistance through [place]. [place]: can we please get rx sent to [facility] in case this is approved (this way they will have it)? Thanks! documented in this encounter Plan of Treatment Upcoming Encounters Date Type Department Care Team (Late st Contact Info) Description 07/22/2024 1:55 PM EDT Pharmacy Pharmacy Hematology Oncology [place] [address] [place] [address] [facility]Onc [address] [place] [address] 10/08/2024 10:20 AM EST Office Visit Pulmonary Medicine, [facility] [address] [place] [address] Rico Wall MD [address] [place] [place] [address] Health Maintenance Due Date Last Done Comments Alpha-1 Antitrypsin 1971 Cologuard 1998 Fecal Occult Blood Test 1998 Sigmoidoscopy 1998 Zoster Vaccines (1 of 2) 2003 Pneumococcal Vaccine: 65+ Years (2 of 2 - PCV) 10/21/2017 10/21/2016 Adult Wellness Visit 2019 DTaP,Tdap,and Td Vaccines (2 - Td or Tdap) 06/09/2019 06/09/2009 COVID-19 Vaccine ( - season) 2023 10/29/2021, 02/07/2021, 01/03/2021 Depression Screening [...] Primary malignant neoplasm of lung, unspecified laterality (HCC) documented in this encounter Advance Directives * [...] Directives occurred with: Not Discussed Care Teams Side Trimmer Relationship Specialty Start Date End Date Cj Rico III, MD [address] [place] [address] PCP - General Family Medicine 05/19/14 documented as of this encounter
--- OUTSIDE RECORDS SUMMARY | 2024-07-27 08:35 | External Medical Summary | Summary of Care ---
Author Name Unknown Organization [facility] Address [address] [place] [address] Phone [phone] Care Team Providers Care Director Of Securities And Real Estate Name Role Phone Trisha DUTTA MD, Cj Cote Primary Care Provider [phone] Reason for Visit * Reason Comments eRx-Medication Refill Encounter Details Date Type Department Care Team (Late st Contact Info) Description 07/21/2024 Refill Family Practice [facility] [address] [facility] [place] [address] Kaylan Hernandez PA-C [address] [facility] [place] [address] Allergies Active Allergy Reactions Criticality Noted Date Comments Losartan Potassium Edema face/lips/tongue High 06/30 Fentanyl Itching 08/30/2016 Oxycodone 06/07/2023 Itching all over Penicillins Edema face/lips/tongue High 11/15/2001 Sulfa Antibiotics Other (Please comment) 2000 Urinary frequency Topiramate 04/09/2023 Other reaction(s): Blurry Vision Tramadol Other (Please comment) 01/01/2018 hallucinations documented as of this encounter (statuses as of 07/23/2024) Medications Medication Sig Dispensed Refills Start Date [...] Paroxysmal atrial fibrillation (HCC),Coronary artery disease involving [place] coronary artery of [place] heart without angina pectoris,Dyslipidem ia, goal LDL [...] every night at bedtime. Active Saline Nasal [place] 0.65 % Nasal Solution ([place]) Administer 1 [place] into nostril as needed for Congestion. Active [...] mouth at bedtime as needed for Sleep. [place] brand 30 Tablet 3 04/14/2024 Active Lisinopril [...] Breath. 360 mL 07/08/2024 08/07/2024 Active Ipratropium [place] 0.02 % Inhalation Solution (Atrovent) Inhale 2.5 [...] as of this encounter (statuses as of 07/23/2024) Active Problems Problem Noted Date Diagnosed Date COPD, group B, by GOLD 2017 classification 07/07 Overview: Per COPD GOLD Classification Primary lung cancer 06/17/2024 Overview: 3 cm left apex lesion with extensive lymph nodes, small pleural effusion Coronary artery disease invo lving [place] coronary artery of [place] heart with angina pectoris 03/25/2023 Acquired absence of other sp ecified parts of digestive tract 11/10/2022 Arthrodesis status 11/10/2022 Complication of anesthesia 11/10/2022 Compression fracture of T12 vertebra 11/10/2022 Discitis 11/10/2022 Gout 11/10/2022 History of lumbar fusion 11/10/2022 Inflammation of sacroiliac joint 11/10/2022 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 Increased risk for Hereditary Cardiomyopathy. Please click the link below for a brief summary of current clinical management recommendations for Hypertrophic Cardiomyopathy. MYH7 Coronary artery disease invo lving [place] coronary artery of [place] heart without angina pectoris 09/26/2021 MISHRA (dyspnea [...] as of this encounter (statuses as of 07/23/2024) Resolved Problems Problem Noted Date Diagnosed Date [...] as of this encounter (statuses as of 07/23/2024) Immunizations Name Administration Dates Next Due COVID-19 mRNA, LNP-s, No Pre serve, 2-Dose Series ([employer]) 10/29/2021,02/07/2021,01/03/2021 PPD 04/27/2010, 0,04/08/2010,04/08,10/25/2006,10/25/2006 Pneumococcal Polysaccharide PPV23 [...] encounter Miscellaneous Notes * Telephone Encounter - Deanna Rodríguez [facility] - 07/23/2024 8:48 AM EDT Refused Prescriptions: Disp Refills Ondansetron HCl 8 MG Oral Tablet (Zofran) 20 Tab*0 Sig: TAKE 1 TABLET BY MOUTH EVERY 8 HOURS NEEDED FOR NAUSEARefused By: DEANNA RODRÍGUEZ for Refusal: Duplicate Request documented in this encounter Plan of Treatment Upcoming Encounters Date Type Department Care Team (Late st Contact Info) Description 07/24/2024 1:45 PM EDT Pharmacy Pharmacy Hematology Oncology [facility] [address] [place] [address] [facility] Hem/Onc [address] [place] [address] 10/08/2024 10:20 AM EST Office Visit Pulmonary Medicine, [facility] [address] [facility] [place] [address] Rico Wall MD [address] [place] [id number] Health Maintenance Due Date Last Done Comments [...] Directives occurred with: Not Discussed Care Teams Director Of Securities And Real Estate Relationship Specialty Start Date End Date Cj Rico III, MD [address] [place] [address] PCP - General Family Medicine 05/19/14 documented as of this encounter
--- OUTSIDE RECORDS SUMMARY | 2024-07-27 08:35 | External Medical Summary | Summary of Care ---
Author Name Unknown Organization [facility] Address [address] [place] [address] Phone [phone] Care Team Providers Care Rectifying Operator Name Role Phone Trisha DUTTA MD, Cj Cote Primary Care Provider [phone] Reason for Referral * Precert (Diagnostic Medical) (Within 10 days (routine)) - Authorized Specialty Diagnoses / Procedures Referred By Contac t Referred To Contact Cardiac Studies Diagnoses Malignant neoplasm of upper lobe of left lung (HCC) Metastasis to mediastinal lymph node (HCC) Procedures ECHO, COMPLETE (2D), TRANS-THORACIC Cortez Simmons MD [address] [facility] [place] [address] Referral ID Status Reason Start Date Expiration Date V isits Requested Visits Authorized [id number] Authorized Precert 07/08/2024 999 999 Reason for Visit * Reason Onset Date Comments Precert Future 07/08/2024 tagris Encounter Details Date Type Department Care Team (Late st Contact Info) Description 07/08/2024 Telephone Hematology/Oncology Treatment, [place] [address] [place] [id number] Cortez Simmons [facility] [address] [facility] [address] Precert Future (tagrisso) Allergies Active Allergy Reactions Criticality Noted Date [...] :Paroxysmal atrial fibrillation (HCC),Coronary artery disease involving [place] coronary artery of [place] heart without angina pectoris,Dyslipide daylin, goal LDL [...] every night at bedtime. Active Saline Nasal [place] 0.65 % Nasal Solution ([place]) Administer 1 [place] into nostril as needed for Congestion. Active [...] mouth at bedtime as needed for Sleep. [place] brand 30 Tablet 3 04/14/2024 Active Lisinopril [...] Breath. 360 mL 07/08/2024 4 Active Ipratropium [place] 0.02 % Inhalation Solution (Atrovent) Inhale 2.5 mL via nebulizer every 6 hours as needed for Wheezing. 300 mL 07/08/2024 4 Active Ondansetron HCl 4 MG Oral Tablet Take 1 Tablet by mouth every 6 hours. Use 1 hour prior to the bowel prepation 20 Tablet 06/07/2023 4 Discontinue d(Patient preference/ discontinua tion) Dicyclomine HCl 10 MG Oral Capsule (Bentyl) Take 1 Capsule by mouth 2 times a day as needed for Cramping or Diarrhea. 60 Capsule 2 10/09/2023 4 Discontinue d(Patient preference/ discontinua tion) Benzonatate 100 MG Oral Capsule (Jakub Sin)Indications :Simple chronic bronchitis (HCC) Take 1 Capsule by mouth 3 times a day as needed for Cough. Do not cut, crush, or chew. 50 Capsule 1 07/06/2024 4 Discontinue d(Patient preference/ discontinua tion) Promethazine-Codei ne 6.25-10 MG/5ML Oral Syrup (Phenergan and Codeine)Indication s:Malignant neoplasm of lung, unspecified laterality, unspecified part of lung (HCC) Take 5 mL by mouth every 6 hours as needed for Cough. 250 mL 07/07/2024 4 Discontinue d(Medicatio n List Clean Up) guaiFENesin-Codein e 100-10 MG/5ML Oral Solution (Robitussin AC)Indications:Mal ignant neoplasm of lung, unspecified laterality, unspecified part of lung (HCC) Take 5 mL by mouth 3 times a day as needed for Cough. 180 mL 1 07/08/2024 4 Discontinue d(Patient preference/ discontinua tion) HYDROcodone Bit-Homatrop MBr 5-1.5 MG/5ML Oral Solution (Hycodan) Take 5 mL by mouth every 6 hours as needed for Cough. 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 Increased risk for Hereditary Cardiomyopathy. Please click the link below for a brief summary of current clinical management recommendations for Hypertrophic Cardiomyopathy. MYH7 Coronary artery disease invo lving [place] coronary artery of [place] heart without angina pectoris 09/26/2021 MISHRA (dyspnea [...] Classification Acute mid back pain 11/29/2018 09/26/20 19 Superficial incisional infec tion of surgical site [...] mRNA, LNP-s, No Pre serve, 2-Dose Series ([employer]) 10/29/2021,02/07/2021,01/03/2021 PPD 04/27/2010, 0,04/08/2010,04/08,10/25/2006,10/25/2006 Pneumococcal Polysaccharide PPV23 [...] encounter Miscellaneous Notes * Telephone Encounter - Lucinda Fan OSA - 07/18/2024 1:54 PM EDT This is being worked on TE 07/14/2024. Please refer to those notes. Per previous TE was told patient can not use HW julita on [employer] trying to help patient be approved for pharmacy elie however, need patients income docs sheis unsure if she can find them Applied patient also for az and me. Faxed application today to az and me will follow up Sunday. Lucinda Fan Medication Records Management Associate 07/18/2024.1:56 PM * Telephone Encounter - Buffy Dean RN - 07/18/2024 1:29 PM EDT Spoke to patient- tearful on phone. She would be willing to use [employer] for tagrisso and pay $66 copay; however, this julita was originally obtained for her cholesterol medication which she states that she cannot stop. She is worried that if [employer] is used for tagrisso, she will not be able to afford praluent. GSP/ PRC: can you please review this? Is there any other copay assistance for cholesterol medication? * Telephone Encounter - Cortez Simmons MD - 07/16/2024 12:11 PM EDT I would not start any appetite stimulant medication at this time. May encounter drug drug interaction or some of the side effects of that. * Telephone Encounter - Jay Freed RN - 07/16/2024 9:57 AM EDT Called patient to discuss. MTM- Pt approved for assistance for Tagrisso per encounter 07/15. Pt made aware of copay of $66 and # for GSP given to patient to call to schedule shipment. I spoke with patient, she states she awoke last night with a coughing spell that lasted 1 hour. Shestates she took one of her Ativan and this helped and went back to sleep. She states she hasn't hadany appetite, only was able to eat an egg and some soup yesterday. She states she has never been good at fluid intake but denies any symptoms of dehydration. I advised that if she starts to develop any signs of dehydration (faintness,dizziness,dry mouth) to call our office so we can order her hydration. Dr. Simmons- any issue with prescribing medication to help with appetite stimulation? * Telephone Encounter - Buffy Dean RN - 07/15/2024 11:24 AM EDT Tagrisso can come from [facility]. Left message for patient letting her know. * Telephone Encounter - Buffy Dean RN - 07/10/2024 3:16 PM EDT Echo 07/15/24. Per Dr Simmons, patient will need PET skull base to mid thigh about 3 months after starting tagrisso. * Telephone Encounter - Buffy Dean RN - 07/08/2024 3:50 PM EDT Education complete. Consent signed. EKG/ labs being done today. Echo to be scheduled. * Addendum Note - Buffy Dean RN - 07/08/2024 2:47 PM EDTAddended by: BUFFY DEAN on: 07/08/2024 02:47 PM Modules accepted: Orders * Telephone Encounter - Buffy Dean RN - 07/08/2024 2:02 PM EDT Order received for tagrisso. Forwarded order to [facility]. Patient needs to come to office for consent/ see Dr Simmons/ nurse education visit. Called patient. Her daughter is her only mode of transportation and has to leave town in 2 hours togo home, patient distressed as she wants her daughter present. Asked patient to come to office now,patient agreeable. Patient will need baseline EKG, echo. Will need hep B labs. documented in this encounter Plan of Treatment Upcoming Encounters Date Type Department Care Team (Late st Contact Info) Description 07/22/2024 1:55 PM EDT Pharmacy Pharmacy Hematology Oncology [facility] [address] [place] [address] Gm, [facility] Clinic Hem/Onc [address] [place] [address] 10/08/2024 10:20 AM EST Office Visit Pulmonary Medicine, [facility] [address] [facility] [place] [address] Rico Wall MD [address] [place] [phone] Health Maintenance Due Date Last Done Comments [...] Not on filedocumented as of this encounter Results * ECHO, COMPLETE (2D), TRANS-THORACIC (07/15/2024 9:13 AM EDT) LEFT VENTRICULAR EJECTION FRACTION 60 % [facility] CARDIOLOGY 07/15/2024 8:20 AM EDT Cortez Simmons MD ECHOCARDIOLOGY [facility] CARDIOLOGY * COMPREHENSIVE METABOLIC PANEL (07/08/2024 4:05 PM EDT) BUN 12 6 - 20 mg/dL 07/08/2024 4:29 PM EDT LABORATORY [facility] 56-02 Creatinine 0.7 0.5 - 1.0 mg/dL 07/08/2024 4:29 PM EDT LABORATORY [place] 56-02 Estimated Glomerular Filtration Rate >90 >=60 mL/min 07/08/2024 4:29 PM EDT LABORATORY [place] 56-02 Comment:eGFR is calculated b ased on the CKD-EPI 2020 equation. Sodium 137 135 - 146 mmol/L 07/08/2024 4:29 PM EDT [facility] 56-02 Potassium 4.3 3.5 - 5.1 mmol/L 07/08/2024 4:29 PM EDT [facility] 56 Chloride 103 98 - 107 mmol/L 07/08/2024 4:[address] CO2 23 22 - 32 mmol/L 07/08/2024 4:[address]T [address] Anion Gap 11 7 - 15 mmol/L 07/08/2024 4:29 [address]T [address] Glucose 99 70 - 120 mg/dL 07/08/2024 4:29 PM [address]T [address] Albumin 4.1 3.8 - 5.0 g/dL 07/08/2024 4:[address] AST 14 10 - 35 U/L 07/08/2024 4:29 PM EDT [place] [address] Alkaline Phosphatase 68 35 - 130 U/L 07/08/2024 4:29 PM [address]T [address] Bilirubin, Total 0.6 <=1.2 mg/dL 07/08/2024 4:29 PM EDT [address] Calcium 9.2 8.4 - 10.2 mg/dL 07/08/2024 4:29 PM EDT [place] [address] Protein 6.3 6.0 - 8.3 g/dL 07/08/2024 4:29 PM EDT [place] [address] ALT 22 10 - 35 U/L 07/08/2024 4:29 PM EDT [facility] Blood Venous blood specimen / Unknown Venipuncture / Unknown 07/08/2024 4:05 PM EDT 07/08/2024 4:05 PM EDT Cortez Simmons MD LAB BLOOD ORDERABLES [address] [place] [address] * HEPATITIS B CORE ANTIBODIES IGG AND IGM (07/08/2024 4:05 PM EDT) Hepatitis B Core Antibodies IgG and IgM Negative Negative 07/09/2024 3:15 AM EDT LABORATORY [facility] Blood Venous blood specimen / Unknown Venipuncture / Unknown 07/08/2024 4:05 PM EDT 07/08/2024 4:05 PM EDT Cortez Simmons MD LAB BLOOD ORDERABLES Performing Organization Address [facility] Co de Phone Number LABORATORY [facility] [address] [place] [address] * HEPATITIS B SURFACE ANTIGEN (07/08/2024 4:05 PM EDT) Hepatitis B Surface Antigen Negative Negative 07/09/2024 3:15 AM EDT LABORATORY [facility] Blood Venous blood specimen / Unknown Venipuncture / Unknown 07/08/2024 4:05 PM EDT 07/08/2024 4:05 PM EDT Cortez Simmons MD LAB BLOOD ORDERABLES Performing Organization Address [facility] Phone Number LABORATORY [facility] [address] [place] [address] * HEPATITIS B SURFACE ANTIBODY (07/08/2024 4:05 PM EDT) Hepatitis B Surface Antibody, Quantitative <3.5 mIU/mL 07/09/2024 3:15 AM EDT LABORATORY [facility] Hepatitis B Surface Antibody, Qualitative Negative 07/09/2024 3:15 AM EDT LABORATORY [facility] Hepatitis B Surface Antibody, Interpretation NOT immune to Hepatitis B Virus 07/09/2024 3:15 AM EDT LABORATORY [facility] Comment: POSITIVE: >=11.5 mIU/mL INDETERMINATE: 8.5-<11.5 mIU/mL NEGATIVE: <8.5 mIU/mL Blood Venous blood specimen / Unknown Venipuncture / Unknown 07/08/2024 4:05 PM EDT 07/08/2024 4:05 PM EDT Cortez Simmons MD LAB BLOOD ORDERABLES Performing Organization Address [facility] de Phone Number LABORATORY [facility] [address] [place] [address] * EKG (07/08/2024 3:50 PM EDT) 07/08/2024 3:50 PM EDT Narrative Procedure Note Andrea Das, - 07/08/2024 3:50 PM EDT REASON FOR STUDY: patient starting cardiotoxic chemotherapy;p CONCLUSIONS: Sinus rhythm with Premature supraventricular complexes Otherwise normal ECG When compared with ECG of 22-Nov-2023 11:25, Premature supraventricular complexes are now Present Nonspecific T wave abnormality no longer evident in Anterior leads Ventricular Rate: 69 Atrial Rate: 69 NH Interval: 124 QRS Duration: 72 QT/QTc: 416/445 ms P-R-T [place]: 56 : 27 : 27 degrees Cortez Simmons MD EKG [facility] CARDIOLOGY documented in this encounter Visit Diagnoses Diagnosis Malignant neoplasm of upper lobe of left lung (HCC)- Primary 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
--- OUTSIDE RECORDS SUMMARY | 2024-07-27 08:35 | External Medical Summary | Summary of Care ---
Author Name Unknown Organization [facility] Address [address] [place] [address] Phone [phone] Care Team Providers Care Structural Iron Worker Name Role Phone Trisha DUTTA MD, Cj Cote Primary Care Provider [phone] Reason for Visit * Reason Comments Medication Management Encounter Details Date Type Department Care Team (Late st Contact Info) Description 07/22/2024 1:55 PM EDT Pharmacy Pharmacy Hematology [facility] [address] [place] [address] [facility] Hem/Onc [address] [place] [address] Primary malignant neoplasm of lung, unspecified laterality (HCC)* Allergies Active Allergy Reactions Criticality Noted Date Comments Losartan Potassium Edema face/lips/tongue High 06/30 Fentanyl Itching 08/30/2016 Oxycodone 06/07/2023 Itching all over Penicillins Edema face/lips/tongue High 11/15/2001 Sulfa Antibiotics Other (Please comment) 2000 Urinary frequency Topiramate 04/09/2023 Other reaction(s): Blurry Vision Tramadol Other (Please comment) 01/01/2018 hallucinations documented as of this encounter (statuses as of 07/22/2024) Medications Medication Sig Dispensed Refills Start Date [...] Paroxysmal atrial fibrillation (HCC),Coronary artery disease involving [place] coronary artery of [place] heart without angina pectoris,Dyslipidem ia, goal LDL [...] every night at bedtime. Active Saline Nasal [place] 0.65 % Nasal Solution ([place]) Administer 1 [place] into nostril as needed for Congestion. Active [...] mouth at bedtime as needed for Sleep. [place] brand 30 Tablet 3 04/14/2024 Active Lisinopril [...] Breath. 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 Increased risk for Hereditary Cardiomyopathy. Please click the link below for a brief summary of current clinical management recommendations for Hypertrophic Cardiomyopathy. MYH7 Coronary artery disease invo lving [place] coronary artery of [place] heart without angina pectoris 09/26/2021 MISHRA (dyspnea [...] as of this encounter (statuses as of 07/22/2024) Resolved Problems Problem Noted Date Diagnosed Date [...] as of this encounter (statuses as of 07/22/2024) Immunizations Name Administration Dates Next Due COVID-19 mRNA, LNP-s, No Pre serve, 2-Dose Series ([employer] 10/29/2021,02/07/2021,01/03/2021 PPD 04/27/2010, 0,04/08/2010,04/08,10/25/2006,10/25/2006 Pneumococcal Polysaccharide PPV23 [...] as of this encounter Progress Notes * Carolyn Velarde CPhT - 07/22/2024 9:28 AM EDT MEDICATION THERAPY MANAGEMENT OSIMERTINIB TREATMENT STATUS NOTE [place] [phone] Patient Phone Numbers Communication: Chart review Treatment: Medication: Osimertinib (Tagrisso) Indication/Staging/Diagnosis Code: NSCLC, 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 Hawk Simmons Supportive Care Meds: Ondansetron Prophylactic Meds: Hydrocortisone Relevant Chronic Medications: Category Medications Pertinent Notes Antihypertensives HCTZ 12.5mg 2 days per week Lisinopril 20mg daily Per cardiology Per PCP Anticoagulation ASA 81mg daily Per cardiology Thyroid Levothyroxine 100mcg daily Per PCP Review of therapy: Line of therapy: first Previous therapy: none Potential drug-drug drug-herbal, drug-food, drug-disease interactions: Yes, Ondansetron / Osimertinib: Ondansetron may enhance the QTc-prolonging effect of QT-prolonging Kinase Inhibitors Recommendation: Monitor for QTc interval prolongation and ventricular arrhythmias (including torsades de pointes) Action: Will admitting counselor pt on DDI and monitor ondansetron use The Hematology/Oncology Oral Chemotherapy Clinic will assess medication compliance at each patient encounter Assessment and Plan: Per [facility] note 07/14/24 addendum 07/17/24, pt to bring pharmacy elie application to [facility] 07/18/24 which will be sent to [facility] Patient returned pharmacy elie application to [facility], however will need income documents for review. [facility] applied and faxed [place] application 07/18. [place]&ME application still under review as of 07/21 MTM to follow up in 2 days to assess AZ&ME status Yes/no Date Action Taken [place] plan entered? yes 07/09/24 Consent completed? yes 07/08/24 Intro/med rec completed? yes 07/10/24 Precert completed? yes 07/14/24 Test claim completed? yes 07/14/24 Patient's co-pay will be $ 1939.97 Financial assistance needed? yes Physician signature? yes 07/09/24 Rx released? yes 07/14/24 Education completed? Carolyn Velarde [facility] III Hematology Oncology Oral Chemotherapy Clinic Medication Therapy Disease Management [facility] 07/22/2024 9:46 AM Time Spent on Encounter: 6 - 10 minutes documented in this encounter Plan of Treatment Upcoming Encounters Date Type Department Care Team (Late st Contact Info) Description 07/24/2024 1:45 PM EDT Pharmacy [facility] [place] [address] [place] [address] [facility] Clinic Hem/Onc [address] [place] [address] 10/08/2024 10:20 AM EST Office Visit Pulmonary Medicine, [facility] [address] [facility] [place] [address] Rico Wall MD [address] [facility] [place] [address] Health Maintenance Due Date Last Done [...] Directives occurred with: Not Discussed Care Teams Structural Iron Worker Relationship Specialty Start Date End Date Cj Rico III, MD [address] [place] [address] PCP - General Family Medicine 05/19/14 documented as of this encounter
--- OUTSIDE RECORDS SUMMARY | 2024-07-27 08:35 | External Medical Summary | Summary of Care ---
Author Name Unknown Organization [facility] Address [address] [place] [address] Phone [phone] Care Team Providers Care Transformer Stock Clerk Name Role Phone Trisha DUTTA MD, Cj Cote Primary Care Provider [phone] Reason for Visit * Reason Onset Date Comments Advice 07/22/2024 Simmons Encounter Details Date Type Department Care Team (Late st Contact Info) Description 07/22/2024 Telephone Hematology/Oncology [facility] [address] [place] [address] Services, Scheduling [address] [place] [address] Advice ([place]) Allergies Active Allergy Reactions Criticality [...] Paroxysmal atrial fibrillation (HCC),Coronary artery disease involving sleetm[place] coronary artery of sleetmute heart without angina pectoris,Dyslipidem ia, goal LDL [...] every night at bedtime. Active Saline Nasal [place] 0.65 % Nasal Solution ([place]da) Administer 1 Leigh into nostril as needed for Congestion. Active [...] mouth at bedtime as needed for Sleep. [place] brand 30 Tablet 3 04/14/2024 Active Lisinopril [...] Breath. 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 Increased risk for Hereditary Cardiomyopathy. Please click the link below for a brief summary of current clinical management recommendations for Hypertrophic Cardiomyopathy. 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 * Telephone Encounter - Deya Bach OSA - 07/22/2024 11:40 AM EDT Pt's daughter Tamiko calling in. She states patient's Tagrisso medication is very expensive with a copay of 1,000 dollars. She states she reached out to [employer] for copay assistance. Stephanie with [employer] requests pt's recent office notes, labs and Tagrisso RX be faxed to her at [phone]. You can also call Stephanie at [phone] if needed. Please advise. documented in this encounter Plan of Treatment Upcoming Encounters Date Type Department Care Team (Late st Contact Info) Description 07/24/2024 1:45 PM EDT Pharmacy Pharmacy Hematology Oncology [address] [address] [place], [facility] Hem[facility]Onc [facility] [place] [address] 10/08/2024 10:20 AM EST Office Visit Pulmonary Medicine, [facility] [address] [facility] [place] [address] Rico Wall MD [address] [facility] [place] [id number] Health Maintenance Due Date Last Done Comments [...] Directives occurred with: Not Discussed Care Teams Transformer Stock Clerk Relationship Specialty Start Date End Date Cj Rico III, MD [address] [place] [address] PCP - General Family Medicine 05/19/14 documented as of this encounter
--- OUTSIDE RECORDS SUMMARY | 2024-07-27 08:35 | External Medical Summary | Summary of Care ---
Author Name Unknown Organization [facility] Address [address] [place] [address] Phone [phone] Care Team Providers Care Stack Clerk Name Role Phone Trisha DUTTA MD, Cj Cote Primary Care Provider [phone] Reason for Visit * Reason Onset Date Comments Medication Refill 07/20/2024 Encounter Details Date Type Department Care Team (Late st Contact Info) Description 07/20/2024 Refill Family Practice [facility] 200 [place] [address] Cj Rico III, MD [address] [place] [address] Allergies Active Allergy Reactions Criticality Noted Date [...] Paroxysmal atrial fibrillation (HCC),Coronary artery disease involving suquam[place] coronary artery of suquamish heart without angina pectoris,Dyslipidem ia, goal LDL [...] every night at bedtime. Active Saline Nasal [place] 0.65 % Nasal Solution (Novice) Administer 1 [place] into nostril as needed for Congestion. Active [...] mouth at bedtime as needed for Sleep. [place] brand 30 Tablet 3 04/14/2024 Active Lisinopril [...] Breath. 360 mL 07/08/2024 08/07/2024 Active Ipratropium [place] 0.02 % Inhalation Solution (Atrovent) Inhale 2.5 [...] without food.. 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 Increased risk for Hereditary Cardiomyopathy. Please click the link below for a brief summary of current clinical management recommendations for Hypertrophic Cardiomyopathy. MYH7 Coronary artery disease invo lving suquam[place] coronary artery of suquamish heart without angina pectoris 09/26/2021 MISHRA (dyspnea [...] mRNA, LNP-s, No Pre serve, 2-Dose Series ([employer]) 10/29/2021,02/07/2021,01/03/2021 PPD 04/27/2010, 0,04/08/2010,04/08,10/25/2006,10/25/2006 Pneumococcal Polysaccharide PPV23 [...] encounter Miscellaneous Notes * Telephone Encounter - Sarah Butler PHARM Tech - 07/22/2024 11:59 AM EDT Request for Ondansetron 8MG refused. Rx sent to pharmacy today 07/22/2024 with 2 refills. Thank you, Sarah Butler CPhT Flour Inspector Telecommunications Line Installer [facility] 07/22/2024,12:01 PM documented in this encounter Plan of Treatment Upcoming Encounters Date Type Department Care Team (Late st Contact Info) Description 07/22/2024 1:55 PM EDT Pharmacy Pharmacy Hematology Oncology [facility] [place] [address] [place] [address] [facility], [facility] Clinic Hem/Onc [address] [place] [address] 10/08/2024 10:20 AM EST Office Visit Pulmonary Medicine, [facility] 132 [facility] [place] [address] Rico Wall MD [address] [facility] [place] [address] Health Maintenance Due Date Last [...] Directives occurred with: Not Discussed Care Teams Stack Clerk Relationship Specialty Start Date End Date Cj Rico III, MD [address] [place] [address] PCP - General Family Medicine 05/19/14 documented as of this encounter
--- OUTSIDE RECORDS SUMMARY | 2024-07-27 08:35 | External Medical Summary | Summary of Care ---
Author Name Unknown Organization [facility] Address [address] [place] [address] Phone [phone] Care Team Providers Care Setter Off Name Role Phone Trisha DUTTA MD, Cj Cote Primary Care Provider [phone] Reason for Visit * Reason Onset Date Comments Advice 07/22/2024 Simmons Encounter Details Date Type Department Care Team (Late st Contact Info) Description 07/22/2024 Telephone Hematology/Oncology [facility] [address] [place] [address] Services, Scheduling [address] [place] [address] Advice ([place]) Allergies Active Allergy Reactions Criticality [...] Paroxysmal atrial fibrillation (HCC),Coronary artery disease involving coushatta coronary artery of coushatta heart without angina pectoris,Dyslipidem ia, goal LDL [...] every night at bedtime. Active Saline Nasal [place] 0.65 % Nasal Solution ([place]) Administer 1 [place] into nostril as needed for Congestion. Active [...] mouth at bedtime as needed for Sleep. [place] brand 30 Tablet 3 04/14/2024 Active Lisinopril [...] Breath. 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 Increased risk for Hereditary Cardiomyopathy. Please click the link below for a brief summary of current clinical management recommendations for Hypertrophic Cardiomyopathy. MYH7 Coronary artery disease invo lving coushatta coronary artery of coushatta heart without angina pectoris 09/26/2021 MISHRA (dyspnea [...] mRNA, LNP-s, No Pre serve, 2-Dose Series (Hi-Dis(Mosen)) 10/29/2021,02/07/2021,01/03/2021 PPD 04/27/2010, 0,04/08/2010,04/08,10/25/2006,10/25/2006 Pneumococcal Polysaccharide PPV23 [...] Freed RN - 07/23/2024 8:05 AM EDT [facility]- Can we please look into this and assist, we are happy to provide anything assistance may need.Thanks. * Telephone Encounter - Deya Bach OSA - 07/22/2024 11:40 AM EDT Pt's daughter Tamiko calling in. She states patient's Tagrisso medication is very expensive with a copay of 1,000 dollars. She states she reached out to [employer] for copay assistance. Stephanie with [employer] requests pt's recent office notes, labs and Tagrisso RX be faxed to her at [phone]. You can also call Stephanie at [phone] if needed. Please advise. documented in this encounter Plan of Treatment Upcoming Encounters Date Type Department Care Team (Late st Contact Info) Description 07/24/2024 1:45 PM EDT Pharmacy Pharmacy Hematology Oncology [facility] [address] [place] [address] [facility] Hem/Onc [address] [place] [address] 10/08/2024 10:20 AM EST Office Visit Pulmonary Medicine, [facility] 132 [facility] [place] [address] Rico Wall MD [address] [place] [phone] Health Maintenance Due Date Last Done Comments [...] Directives occurred with: Not Discussed Care Teams Setter Off Relationship Specialty Start Date End Date Cj Rico III, MD 200 [facility] [place] [address] PCP - General Family Medicine 05/19/14 documented as of this encounter
--- OUTSIDE RECORDS SUMMARY | 2024-07-27 08:35 | External Medical Summary | Summary of Care ---
Author Name Unknown Organization [facility] Address [address] [place] [address] Phone [phone] Care Team Providers Care Geriatric Care Manager Name Role Phone Trisha DUTTA MD, Cj Cote Primary Care Provider [phone] Reason for Referral * Precert (Diagnostic Medical) (Within 10 days (routine)) - Authorized Specialty Diagnoses / Procedures Referred By Contac t Referred To Contact Cardiac Studies Diagnoses Malignant neoplasm of upper lobe of left lung (HCC) Metastasis to mediastinal lymph node (HCC) Procedures ECHO, COMPLETE (2D), TRANS-THORACIC Cortez Simmons MD 200 [facility] [place] [address] Referral ID Status Reason Start Date Expiration Date V isits Requested Visits Authorized [id number] Authorized Precert 07/08/2024 999 999 Reason for Visit * Reason Onset Date Comments Precert Future 07/08/2024 tagris Encounter Details Date Type Department Care Team (Late st Contact Info) Description 07/08/2024 Telephone Hematology/Oncology Treatment, [place] [address] [place] [id number] Cortez [facility] [address] Precert Future (tagrisso) Allergies Active Allergy Reactions [...] :Paroxysmal atrial fibrillation (HCC),Coronary artery disease involving platinum coronary artery of platinum heart without angina pectoris,Dyslipide daylin, goal LDL [...] every night at bedtime. Active Saline Nasal [place] 0.65 % Nasal Solution ([place]) Administer 1 [place] into nostril as needed for Congestion. Active [...] mouth at bedtime as needed for Sleep. [place] brand 30 Tablet 3 04/14/2024 Active Lisinopril [...] Breath. 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 Increased risk for Hereditary Cardiomyopathy. Please click the link below for a brief summary of current clinical management recommendations for Hypertrophic Cardiomyopathy. MYH7 Coronary artery disease invo lving platinum coronary artery of platinum heart without angina pectoris 09/26/2021 MISHRA (dyspnea [...] mRNA, LNP-s, No Pre serve, 2-Dose Series ([employer]) 10/29/2021,02/07/2021,01/03/2021 PPD 04/27/2010, 0,04/08/2010,04/08,10/25/2006,10/25/2006 Pneumococcal Polysaccharide PPV23 [...] encounter Miscellaneous Notes * Telephone Encounter - Buffy Dean RN - 07/18/2024 1:29 PM EDT Spoke to patient- tearful on phone. She would be willing to use [employer] for tagrisso and pay $66 copay; however, this julita was originally obtained for her cholesterol medication which she states that she cannot stop. She is worried that if [employer] is used for tagrisso, she will not [...] 11:24 AM EDT Tagrisso can come from [facility]. Left message for patient letting her know. [...] Order received for tagrisso. Forwarded order to [facility]. Patient needs to come to office for [...] [facility] [address] [place] [address] [facility], [facility] Hem/Onc [address] [place] [address] 10/08/2024 10:20 AM EST Office Visit Pulmonary Medicine, [facility] 132 [facility] [place] [address] Rico Wall MD [address] [facility] [place] [address] Health Maintenance Due Date Last Done Comments Alpha-1 Antitrypsin 1971 Cologuard 1998 Fecal Occult Blood Test 1998 Sigmoidoscopy 1998 Zoster Vaccines (1 of 2) 2003 Pneumococcal Vaccine: 65+ Years (2 of 2 - PCV) 10/21/2017 10/21/2016 Adult Wellness Visit 2019 DTaP,Tdap,and Td Vaccines (2 - Td or Tdap) 06/09/2019 06/09/2009 COVID-19 Vaccine (4 - season) 2023 10/29/2021, 02/07/2021, 01/03/2021 Depression [...] EDT) LEFT VENTRICULAR EJECTION FRACTION 60 % [facility] 07/15/2024 8:20 AM EDT Cortez Simmons MD ECHOCARDIOLOGY [facility] * COMPREHENSIVE METABOLIC PANEL (07/08/2024 4:05 PM EDT) Pathologist [facility] BUN 12 6 - 20 mg/dL 07/08/2024 4:29 PM EDT [facility] 56- Creatinine 0.7 0.5 - 1.0 mg/dL 07/08/2024 4:29 PM EDT [facility] 56 Estimated Glomerular Filtration Rate >90 >=60 mL/min 07/08/2024 4:29 PM EDT [facility] 56- Comment:eGFR is calculated b ased on the CKD-EPI 2020 equation. Sodium 137 135 - 146 mmol/L 07/08/2024 4:29 PM EDT [facility] 56- Potassium 4.3 3.5 - 5.1 mmol/L 07/08/2024 4:29 PM EDT [facility] 56- Chloride 103 98 - 107 mmol/L 07/08/2024 4:29 PM EDT [facility] 56- CO2 23 22 - 32 mmol/L 07/08/2024 4:29 PM EDT [facility] [place] 56- Anion Gap 11 7 - 15 mmol/L 07/08/2024 4:29 PM EDT [facility] 56- Glucose 99 70 - 120 mg/dL 07/08/2024 4:29 PM EDT [facility] 56- Albumin 4.1 3.8 - 5.0 g/dL 07/08/2024 4:29 PM EDT [facility] 56- AST 14 10 - 35 U/L 07/08/2024 4:29 PM EDT [facility] [place] 5602 Alkaline Phosphatase 68 35 - 130 U/L 07/08/2024 4:29 PM EDT [facility] 56 Bilirubin, Total 0.6 <=1.2 mg/dL 07/08/2024 4:29 PM EDT [facility] 56 Calcium 9.2 8.4 - 10.2 mg/dL 07/08/2024 4:29 PM EDT [address] Protein 6.3 6.0 - 8.3 g/dL 07/08/2024 4:29 PM EDT [facility] [place] 56 ALT 22 10 - 35 U/L 07/08/2024 4:29 PM EDT [facility] 5602 Blood Venous blood specimen / Unknown Venipuncture / Unknown 07/08/2024 4:05 PM EDT 07/08/2024 4:05 PM EDT Cortez Simmons MD LAB BLOOD ORDERABLES [facility] [address] [place] [address] * HEPATITIS B CORE ANTIBODIES IGG AND IGM (07/08/2024 4:05 PM EDT) Hepatitis B Core Antibodies IgG and IgM Negative Negative 07/09/2024 3:15 AM EDT [facility] Blood Venous blood specimen / Unknown Venipuncture / Unknown 07/08/2024 4:05 PM EDT 07/08/2024 4:05 PM EDT Cortez Simmons MD LAB BLOOD ORDERABLES [facility] [address] [place] [address] * HEPATITIS B SURFACE ANTIGEN (07/08/2024 4:05 PM EDT) Hepatitis B Surface Antigen Negative Negative 07/09/2024 3:15 AM EDT [facility] Blood Venous blood specimen / Unknown Venipuncture / Unknown 07/08/2024 4:05 PM EDT 07/08/2024 4:05 PM EDT Cortez Simmons MD LAB BLOOD ORDERABLES Performing Organization Address [facility] Co de Phone Number [facility] [address] [place] [address] * HEPATITIS B SURFACE ANTIBODY (07/08/2024 4:05 PM EDT) Pathologist [facility] Hepatitis B Surface Antibody, Quantitative <3.5 mIU/mL 07/09/2024 3:15 AM EDT [facility] Hepatitis B Surface Antibody, Qualitative Negative 07/09/2024 3:15 AM EDT [facility] Hepatitis B Surface Antibody, Interpretation NOT immune to Hepatitis B Virus 07/09/2024 3:15 AM EDT [facility] Comment: POSITIVE: >=11.5 mIU/mL INDETERMINATE: 8.5-<11.5 mIU/mL NEGATIVE: <8.5 mIU/mL Blood Venous blood specimen / Unknown Venipuncture / Unknown 07/08/2024 4:05 PM EDT 07/08/2024 4:05 PM EDT Cortez Simmons MD LAB BLOOD ORDERABLES Performing Organization Address [facility] Co de Phone Number [facility]ATORY [facility] [address] [place] [address] * EKG (07/08/2024 3:50 PM EDT) 07/08/2024 3:50 PM EDT Narrative Procedure Note Andrea Das DO - 07/08/2024 3:50 PM EDT REASON FOR STUDY: patient starting cardiotoxic chemotherapy;p CONCLUSIONS: Sinus rhythm with Premature supraventricular complexes Otherwise normal ECG When compared with ECG of 22-Nov-2023 11:25, Premature supraventricular complexes are now Present Nonspecific T wave abnormality no longer evident in Anterior leads Ventricular Rate: 69 Atrial Rate: 69 [place] Interval: 124 QRS Duration: 72 QT/QTc: 416/445 ms P-R-T [place]: 56 : 27 : 27 degrees Cortez Simmons MD [facility] documented in this encounter Visit Diagnoses [...] Directives occurred with: Not Discussed Care Teams Geriatric Care Manager Relationship Specialty Start Date End Date Cj Rico III, MD 200 [facility] [place] [address] PCP - General Family Medicine 05/19/14 documented as of this encounter
--- OUTSIDE RECORDS SUMMARY | 2024-07-27 08:35 | External Medical Summary | Summary of Care ---
Author Name Unknown Organization [facility] Address [address] [place] [address] Phone [phone] Care Team Providers Care Supply Chain Planner Name Role Phone Trisha DUTTA MD, Aquiles Cote Primary Care Provider [phone] Reason for Visit * Reason Onset Date Comments Medication Refill 07/15/2024 Encounter Details Date Type Department Care Team (Late st Contact Info) Description 07/15/2024 Refill Family Practice [facility] [address] [facility] [place] [address] Aquiles Gagnon III, MD [address] [place] [address] Malignant neoplasm of lung, unspecified laterality, unspecified part of lung (HCC) Allergies Active Allergy Reactions Criticality Noted Date Comments Losartan Potassium Edema face/lips/tongue High 06/30 Fentanyl Itching 08/30/2016 Oxycodone 06/07/2023 Itching all over Penicillins Edema face/lips/tongue High 11/15/2001 Sulfa Antibiotics Other (Please comment) 2000 Urinary frequency Topiramate 04/09/2023 Other reaction(s): Blurry Vision Tramadol Other (Please comment) 01/01/2018 hallucinations documented as of this encounter (statuses as of 07/21/2024) Medications Medication Sig Dispensed Refills Start Date [...] Paroxysmal atrial fibrillation (HCC),Coronary artery disease involving tanana coronary artery of tanana heart without angina pectoris,Dyslipidem ia, goal LDL [...] every night at bedtime. Active Saline Nasal [place] 0.65 % Nasal Solution ([place]) Administer 1 [place] into nostril as needed for Congestion. Active [...] mouth at bedtime as needed for Sleep. [place] brand 30 Tablet 3 04/14/2024 Active Lisinopril [...] Tablet 05/22/2024 Active Baclofen 20 MG Oral TabletIndications:W [...] Breath. 360 mL 07/08/2024 4 Active Ipratropium [place] 0.02 % Inhalation Solution (Atrovent) Inhale 2.5 mL via nebulizer every 6 hours as needed for Wheezing. 300 mL 07/08/2024 Active Hydrocortisone 1 % External CreamIndications:Pr imary malignant neoplasm of lung, unspecified laterality (HCC) Apply topically to affected area 2 times a day. Apply twice daily for 6 weeks 120 g 1 07/14/2024 Active HYDROcodone Bit-Homatrop MBr 5-1.5 MG/5ML Oral Solution (Hycodan) Take 5 mL by mouth every 6 hours as needed for Cough. 473 mL 07/21/2024 Active Ondansetron HCl 4 MG Oral Tablet Take 1 Tablet by mouth every 6 hours. Use 1 hour prior to the bowel prepation 20 Tablet 06/07/2023 4 Discontinu ed(Patient preference /discontin uation) Dicyclomine HCl 10 MG Oral Capsule (Bentyl) Take 1 Capsule by mouth 2 times a day as needed for Cramping or Diarrhea. 60 Capsule 2 10/09/2023 4 Discontinu ed(Patient preference /discontin uation) Benzonatate 100 MG Oral Capsule (Tessalon Perles)Indications: Simple chronic bronchitis (HCC) Take 1 Capsule by mouth 3 times a day as needed for Cough. Do not cut, crush, or chew. 50 Capsule 1 07/06/2024 4 Discontinu ed(Patient preference /discontin uation) Promethazine-Codein e 6.25-10 MG/5ML Oral Syrup (Phenergan and Codeine)Indications :Malignant neoplasm of lung, unspecified laterality, unspecified part of lung (HCC) Take 5 mL by mouth every 6 hours as needed for Cough. 250 mL 07/07/2024 4 Discontinu ed(Medicat ion List Clean Up) guaiFENesin-Codeine 100-10 MG/5ML Oral Solution (Robitussin AC)Indications:Dena gnant neoplasm of lung, unspecified laterality, unspecified part of lung (HCC) Take 5 mL by mouth 3 times a day as needed for Cough. 180 mL 1 07/08/2024 4 Discontinu ed(Patient preference /discontin uation) HYDROcodone Bit-Homatrop MBr 5-1.5 MG/5ML Oral Solution (Hycodan) Take 5 mL by mouth every 6 hours as needed for Cough. 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 Take medication about same time every day, with or without food.. 30 Tablet 5 07/14/2024 4 Discontinu ed(Refill) HYDROcodone Bit-Homatrop MBr 5-1.5 MG/5ML Oral Solution (Hycodan) Take 5 mL by mouth every 6 hours as needed for Cough. 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 Increased risk for Hereditary Cardiomyopathy. Please click the link below for a brief summary of current clinical management recommendations for Hypertrophic Cardiomyopathy. MYH7 Coronary artery disease invo lving tanana coronary artery of tanana heart without angina pectoris 09/26/2021 MISHRA (dyspnea [...] as of this encounter (statuses as of 07/21/2024) Resolved Problems Problem Noted Date Diagnosed Date [...] as of this encounter (statuses as of 07/21/2024) Immunizations Name Administration Dates Next Due COVID-19 mRNA, LNP-s, No Pre serve, 2-Dose Series (URX) 10/29/2021,02/07/2021,01/03/2021 PPD 04/27/2010, 0,04/08/2010,04/08,10/25/2006,10/25/2006 Pneumococcal Polysaccharide PPV23 [...] encounter Miscellaneous Notes * Telephone Encounter - Aquiles Gagnon III, MD - 07/21/2024 7:43 AM EDTSigned Prescriptions: Disp Refills HYDROcodone Bit-Homatrop MBr 5-1.5 MG/5ML *473 mL 0 Sig: Take 5 mL by mouth every 6 hours as needed for Cough.Authorizing Provider: AQUILES GAGNON III ERefused Prescriptions: Disp Refills HYDROcodone Bit-Homatrop MBr 5-1.5 MG/5ML *120 mL 0 Sig: Take 5 mL by mouth every 6 hours as needed for Cough.Refused By: Real ELLIOTTason for Refusal: Managed by another physician * Telephone Encounter - Bebe Dean RN - 07/18/2024 1:32 PM EDT Patient picked up cough medicine. She states that the pharmacy said that there is a bigger bottle available- the little bottle does not last her for long. Dr Gagnon: can this be prescribed in larger quantity? (Pended new rx with updated volume if agreeable) * Telephone Encounter - Aquiles Gagnon III, MD - 07/17/2024 10:31 AM EDTSigned Prescriptions: Disp Refills HYDROcodone Bit-Homatrop MBr 5-1.5 MG/5ML *120 mL 0 Sig: Take 5 mL by mouth every 6 hours as needed for Cough. Authorizing Provider: AQUILES GAGNON III Refused Prescriptions: Disp Refills HYDROcodone Bit-Homatrop MBr 5-1.5 MG/5ML *120 mL 0 Sig: Take 5 mL by mouth every 6 hours as needed for Cough. Refused By: SUSAN ELLIOTT Reason for Refusal: Managed by another physician * Telephone Encounter - Sonny Muro [facility] - 07/17/2024 9:41 AM EDTPending Prescriptions: Disp Refills HYDROcodone Bit-Homatrop MBr 5-1.5 MG/5ML *120 mL 0 Sig: Take 5 mL by mouth every 6 hours as needed for Cough. Refused Prescriptions: Disp Refills HYDROcodone Bit-Homatrop MBr 5-1.5 MG/5ML *120 mL 0 Sig: Take 5 mL by mouth every 6 hours as needed for Cough. Refused By: SUSAN ELLIOTT Reason for Refusal: Managed by an other physician * Telephone Encounter - Sonny Muro [facility] - 07/17/2024 9:41 AM EDT I have reviewed the patients controlled substance dispensing history in the Prescription Drug Monitoring Program in compliance with the [place] regulations before prescribing a controlled substance. PDMP checked on 07/17/2024. Pending Prescriptions: Disp Refills HYDROcodone Bit-Homatrop MBr 5-1.5 MG/5ML*120 mL 0 Sig: Take 5 mL by mouth every 6 hours as needed for Cough. Refused Prescriptions: Disp Refills HYDROcodone Bit-Homatrop MBr 5-1.5 MG/5ML *120 mL 0 Sig: Take 5 mL by mouth every 6 hours as needed for Cough. Refused By: SUSAN ELLIOTT Reason for Refusal: Managed by another physician Last Visit: 06/19/2024 (in office), 11/21/2023 (telemedicine) Next Visit: Visit date not found Date medication was last filled: 07/08/2024 Date medication is due for refill: 07/13/2024 Pharmacy: [id number] Is this request for a controlled substance? Yes and Urine Drug Screen Not completed Toxicology results: No results found. However, due to the size of the patient record, not all encounters were searched.Please check Results Review for a complete set of results. Please approve if appropriate. Thanks, Sonny Muro Pharm.D. Clinical Pharmacist [facility] ([facility]) [phone] 07/17/2024, 9:41 AM * Telephone Encounter - Jessica Flowers CPhT - 07/17/2024 8:26 AM EDT This message went to the provider, patient has lung cancer and needs high priority Did you pend patient's preferred pharmacy and medication before forwarding?yes Pharmacy: [id number] Pending Prescriptions: Disp Refills HYDROcodone Bit-Homatrop MBr 5-1.5 MG/5ML*120 mL 0 Sig: Take 5 mL by mouth every 6 hours as needed for Cough. Refused Prescriptions: Disp Refills HYDROcodone Bit-Homatrop MBr 5-1.5 MG/5ML *120 mL 0 Sig: Take 5 mL by mouth every 6 hours as needed for Cough. Refused By: SUSAN ELLIOTT Reason for Refusal: Managed by another physician Last Visit: 06/19/2024 (in office), 11/21/2023 (telemedicine) Next Visit: Visit date not found If no future appointments scheduled, and last appointment is greater than a year ago, please schedule patient for a follow-up appointment Last date the medication was ordered: 07/08/2024 Is this request for a controlled substance?Yes, What was the last refill date 07/08/2024 w/ [id number] and dosage 5-1.5 and Urine Drug Screen Not completed Urine Drug Screen:No results found. However, due to the size of the patient record, not all encounters were searched. Please check Results Review for a complete set of results. Patient Phone Numbers Labs: Lab Results Component Value Date/Time CREAT 0.7 07/08/2024 04:05 PM CREAT 0.8 09/24/2020 10:51 AM POTASSIUM 4.3 07/08/2024 04:05 PM POTASSIUM 4.0 07/05/2021 12:00 AM POTASSIUM 5.1 09/24/2020 10:51 AM TSH 1.26 01/02/2024 08:22 AM TSH 0.78 08/16/2020 12:32 PM LDLCALC 90 01/02/2024 08:22 AM LDLCALC 76 09/24/2020 10:51 AM LDLDIRECT NOT APPLICABLE 09/24/2020 10:51 AM ALT 22 07/08/2024 04:05 PM ALT 37 (H) 09/24/2020 10:51 AM HGBA1C 5.5 05/02/2021 10:52 AM HGBA1C 5.4 08/16/2020 12:32 PM * Telephone Encounter - Susan Elliott LPN - 07/16/2024 7:43 AM EDT Medication is managed by Dr. Gagnon * Telephone Encounter - Susan Elliott LPN - 07/16/2024 7:43 AM EDTRefused Prescriptions: Disp Refills HYDROcodone Bit-Homatrop MBr 5-1.5 MG/5ML *120 mL 0 Sig: Take 5 mL by mouth every 6 hours as needed for Cough. Refused By: SUSAN ELLIOTT Reason for Refusal: Managed by another physician documented in this encounter Plan of Treatment Upcoming Encounters Date Type Department Care Team (Late st Contact Info) Description 07/22/2024 1:55 PM EDT Pharmacy Pharmacy Hematology Oncology [facility] [address] [place] [address] [facility] [address] [place] [address] 10/08/2024 10:20 AM EST Office Visit Pulmonary Medicine, [facility] [address] [facility] [place] [address] Rico Wall MD [address] [place] [address] Health Maintenance Due Date Last Done [...] as of this encounter Visit Diagnoses Diagnosis Malignant neoplasm of lung, unspecified laterality, unspecified part of lung (HCC) documented in this encounter Advance Directives [...] Directives occurred with: Not Discussed Care Teams Supply Chain Planner Relationship Specialty Start Date End Date Aquiles Gagnon III, MD [address] [place] [address] PCP - General Family Medicine 05/19/14 documented as of this encounter
--- OUTSIDE RECORDS SUMMARY | 2024-07-27 08:36 | External Medical Summary | Summary of Care ---
Author Name Unknown Organization [facility] Address [address] [place] [address] Phone [phone] Care Team Providers Care Job Honer Name Role Phone Trisha DUTTA MD, Cj Cote Primary Care Provider [phone] Reason for Visit * Reason Comments Medication Management Encounter Details Date Type Department Care Team (Late st Contact Info) Description 07/14/2024 1:30 PM EDT Pharmacy Pharmacy Hematology Oncology [facility] [address] [place] [address] [facility] Hem[facility]Onc [address] [place] [address] Primary malignant neoplasm of lung, unspecified laterality (HCC)* Allergies Active Allergy Reactions Criticality Noted Date Comments Losartan Potassium Edema face/lips/tongue High 06/30 Fentanyl Itching 08/30/2016 Oxycodone 06/07/2023 Itching all over Penicillins Edema face/lips/tongue High 11/15/2001 Sulfa Antibiotics Other (Please comment) 2000 Urinary frequency Topiramate 04/09/2023 Other reaction(s): Blurry Vision Tramadol Other (Please comment) 01/01/2018 hallucinations documented as of this encounter (statuses as of 07/14/2024) Medications Medication Sig Dispensed Refills Start Date End Date Status TYLENOL EXTRA STRENGTH 500 MG PO TABS Take 2 Tablets by mouth every 6 hours as needed for Pain, Mild or Pain, Moderate. 0 02/26/2007 Active VITAMIN D 1000 UNIT PO CAPS one capsule by mouth once a day Active Aspirin EC 81 MG Oral Tablet Delayed ReleaseIndications:P aroxysmal atrial fibrillation (HCC),Coronary artery disease involving sycuan coronary artery of sycuan heart without angina pectoris,Dyslipidemi a, goal LDL below 70,HTN, goal below 140/90 Take 1 Tab by mouth daily. 07/13/2021 Active Probiotic (Lactobacillus) Oral Capsule Take 1 Capsule by mouth daily. 30 Capsule 12/05/2021 Active Nitroglycerin 0.4 MG Sublingual Tablet Sublingual (Nitrostat)Indicatio ns:Abnormal cardiac CT angiography,Paroxysm al atrial fibrillation (HCC),HTN, goal below 140/80,Dyslipidemia, goal LDL below 70,JOLANTA (obstructive sleep apnea) place one tablet under the tongue every 5 minutes as needed for chest pain. take up to 3 doses in 15 minutes 25 Tablet 11 10/23/2022 Active Budesonide 32 MCG/ACT Nasal SuspensionIndication s:Chronic sinusitis, unspecified location,Acute recurrent sinusitis, unspecified location Administer 2 Sprays into each nostril in the morning. 5 mL 3 11/17/2022 Active Acyclovir 400 MG Oral Tablet (Zovirax) TAKE 1 TABLET BY MOUTH 3 TIMES A DAY FOR 5-7 DAYS NEEDED FOR COLD SORES 60 Tablet 11 11/24/2022 Active Additional Information Patient not taking.Reported on 06/25/2024 BiPAP every night at bedtime. Active Saline Nasal [place] 0.65 % Nasal Solution ([place]) Administer 1 [place] into nostril as needed for Congestion. Active Ondansetron HCl 4 MG Oral Tablet Take 1 Tablet by mouth every 6 hours. Use 1 hour prior to the bowel prepation 20 Tablet 06/07/2023 Active Dicyclomine HCl 10 MG Oral Capsule (Bentyl) Take 1 Capsule by mouth 2 times a day as needed for Cramping or Diarrhea. 60 Capsule 2 10/09/2023 Active Albuterol Sulfate (2.5 MG/3ML) 0.083% Inhalation Nebulization Solution (Proventil)Indicatio ns:Bronchitis, complicated,Chronic bronchitis, unspecified chronic bronchitis type (HCC) use 1 nebulizer vial as needed for cough, shortness of breath, and wheeze 75 mL 10/16/2023 Active Ipratropium-Albutero l 0.5-2.5 (3) MG/3ML Inhalation Solution (Duoneb)Indications: Bronchitis, complicated,Chronic bronchitis, unspecified chronic bronchitis type (HCC) INHALE 1 VIAL VIA NEBULIZER EVERY 6 HOURS NEEDED FOR WHEEZING 90 mL 3 10/16/2023 Active Praluent 75 MG/ML Subcutaneous Solution Auto-injector (Alirocumab)Indicati ons:Dyslipidemia, goal LDL below 70 Inject 75 mg [...] mouth at bedtime as needed for Sleep. SpiralFrog brand 30 Tablet 3 04/14/2024 Active Lisinopril 20 MG Oral Tablet (Prinivil) Take 1 Tablet by mouth in the morning. 90 Tablet 2 04/14/2024 Active HYDROmorphone HCl 2 MG Oral Tablet (Dilaudid)Indication s:Post laminectomy syndrome Take 1 Tablet by mouth every 6 hours as needed for Pain, Moderate or Pain, Severe. 30 Tablet 05/07/2024 Active Albuterol Sulfate HFA 108 (90 Base) MCG/ACT Inhalation Aerosol Solution Inhale 2 Puffs by mouth every 4 hours as needed for Wheezing. 18 g 3 05/22/2024 Active hydroCHLOROthiazide 12.5 MG Oral CapsuleIndications:H TN, goal below 130/80 1 tablet 2 days per week. 28 Capsule 3 05/22/2024 Active Additional Information Patient not taking.Reported on 06/25/2024 Ondansetron HCl 8 MG Oral Tablet (Zofran) TAKE 1 TABLET BY MOUTH EVERY 8 HOURS NEEDED FOR NAUSEA 20 Tablet 05/22/2024 Active Baclofen 20 MG Oral TabletIndications:Wh iplash injury to neck, subsequent encounter Take 1 Tablet by mouth in the morning and 1 Tablet at noon and 1 Tablet before bedtime. 30 Tablet 06/19/2024 Active Full Kit Nebulizer Set Use with Nebulizer Medication EVERY SIX HOURS WHILE AWAKE as directed. Dx Code: J44.9 1 Each 3 06/30/2024 Active Benzonatate 100 MG Oral Capsule (Tessalon Perles)Indications:S imple chronic bronchitis (HCC) Take 1 Capsule by mouth 3 times a day as needed for Cough. Do not cut, crush, or chew. 50 Capsule 1 07/06/2024 Active LORazepam 0.5 MG Oral Tablet (Ativan) Take 1 Tablet by mouth every 6 hours as needed for Anxiety or Other (muscle spasm). 30 Tablet 1 07/07/2024 Active Promethazine-Codeine 6.25-10 MG/5ML Oral Syrup (Phenergan and Codeine)Indications: Malignant neoplasm of lung, unspecified laterality, unspecified part of lung (HCC) Take 5 mL by mouth every 6 hours as needed for Cough. 250 mL 07/07/2024 Active Albuterol Sulfate 0.63 MG/3ML Inhalation Nebulization Solution (Accuneb) Inhale 1 Vial via nebulizer every 6 hours as needed for Wheezing or Shortness of Breath. 360 mL 07/08/2024 4 Active Ipratropium [place] 0.02 % Inhalation Solution (Atrovent) Inhale 2.5 mL via nebulizer every 6 hours as needed for Wheezing. 300 mL 07/08/2024 4 Active guaiFENesin-Codeine 100-10 MG/5ML Oral Solution (Robitussin AC)Indications:Malig nant neoplasm of lung, unspecified laterality, unspecified part of lung (HCC) Take 5 mL by mouth 3 times a day as needed for Cough. 180 mL 1 07/08/2024 Active HYDROcodone Bit-Homatrop MBr 5-1.5 MG/5ML Oral Solution (Hycodan) Take 5 mL by mouth every 6 hours as needed for Cough. 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 Apply twice daily for 6 weeks 120 g 1 07/14/2024 Active Osimertinib Mesylate 80 MG Oral Tablet (Tagrisso)Indication s:Primary malignant neoplasm of lung, unspecified laterality (HCC) Take 1 Tablet by mouth in the morning. Take medication about same time every day, with or without food.. 30 Tablet 5 07/14/2024 Active Hospital, Clinic, or Other Facility Administered [...] as of this encounter (statuses as of 07/14/2024) Active Problems Problem Noted Date Diagnosed Date COPD, group B, by GOLD 2017 classification 07/07 Overview: Per COPD GOLD Classification Primary lung cancer 06/17/2024 Overview: 3 cm left apex lesion with extensive lymph nodes, small pleural effusion Coronary artery disease invo lving sycuan coronary artery of sycuan heart with angina pectoris 03/25/2023 Acquired absence of other sp ecified parts of digestive tract 11/10/2022 Arthrodesis status 11/10/2022 Complication of anesthesia 11/10/2022 Compression fracture of T12 vertebra 11/10/2022 Discitis 11/10/2022 Gout 11/10/2022 History of lumbar fusion 11/10/2022 Inflammation of sacroiliac joint 11/10/2022 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 Increased risk for Hereditary Cardiomyopathy. Please click the link below for a brief summary of current clinical management recommendations for Hypertrophic Cardiomyopathy. MYH7 Coronary artery disease invo lving sycuan coronary artery of sycuan heart without angina pectoris 09/26/2021 MISHRA (dyspnea [...] as of this encounter (statuses as of 07/14/2024) Resolved Problems Problem Noted Date Diagnosed Date [...] as of this encounter (statuses as of 07/14/2024) Immunizations Name Administration Dates Next Due COVID-19 [...] this encounter Progress Notes * Renay Ferrer, [facility] - 07/14/2024 2:46 PM EDT MEDICATION THERAPY MANAGEMENT OSIMERTINIB TREATMENT STATUS NOTE Florecita Quintana [id number] Patient Phone Numbers [facility] [phone] Communication: Chart review Treatment: Medication: Osimertinib (Tagrisso) Indication/Staging/Diagnosis Code: NSCLC, 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 Hawk Simmons Supportive Care Meds: Ondansetron [...] arrhythmias (including torsades de pointes) Action: Will marriage counselor pt on DDI and monitor ondansetron use The Hematology/Oncology Oral Chemotherapy Clinic will assess medication compliance at each patient encounter Assessment and Plan: Per OV 07/08/24, pt has h/o headache and DJD Per chart review, baseline ECHO scheduled 07/15/24 Osimertinib RX sent to P who will help with financial assistance Hydrocortisone RX sent to [facility] to follow up in 3 days to assess financial assistance status Yes/no Date Action Taken [place] plan entered? yes 07/09/24 Consent completed? yes 07/08/24 Intro/med rec completed? yes 07/10/24 Precert completed? yes 07/14/24 Test claim completed? yes 07/14/24 Patient's co-pay will be $ 1939.97 Financial assistance needed? yes Physician signature? yes 07/09/24 Rx released? yes 07/14/24 Education completed? Follow up: 3 days Renay Ferrer, PharmD, BCOP Clinical Pharmacist, [facility] Oral Chemotherapy [facility] 07/14/2024, 2:49 PM Monitoring Parameters: Estimated CrCl Serum creatinine: 0.7 [...] Date QTc 07/08/24 445 ms Date LVEF Treatment Parameters Qtc < 500 ms Pertinent labs: N/A Time Spent on Encounter: 6 - 10 minutes Encounter Group: Oncology Encounter Interventions Item Category: Oral Chemotherapy Osimertinib Problem/Rationale: [place] Plan Review: Clinical Review Pharmacist Intervention(s): Medication prescribed Magnitude of Intervention: Modification of medication for asymtomatic patients (Level 2) documented in this encounter Plan of Treatment Upcoming Encounters Date Type Department Care Team (Late st Contact Info) Description 07/15/2024 8:30 AM EDT Cardiac Studies Cardiac Studies, [facility] [address] [facility] [place] [address] 07/17/2024 1:45 PM EDT Pharmacy Pharmacy Hematology Oncology [facility] [address] [place] [address] [facility] Hem[facility]Onc [address] [place] [address] 10/08/2024 10:20 AM EST Office Visit Pulmonary Medicine, [facility] [address] [facility] [place] [address] Rcio Wall MD [address] [facility] [place] [address] Health Maintenance Due Date Last Done Comments [...] Directives occurred with: Not Discussed Care Teams Job Honer Relationship Specialty Start Date End Date Cj Rico III, MD [address] [place] [address] PCP - General Family Medicine 05/19/14 documented as of this encounter
--- OUTSIDE RECORDS SUMMARY | 2024-07-27 08:36 | External Medical Summary | Summary of Care ---
Author Name Unknown Organization [facility] Address [address] [place] [address] Phone [phone] Care Team Providers Care Fire Hydrant Mechanic Name Role Phone Trisha DUTTA MD, Cj Cote Primary Care Provider [phone] Encounter Details Date Type Department Care Team (Late st Contact Info) Description 07/14/2024 Documentation Genetics HemOnc, [facility] [address] [place] [address] Radha Meehan, MS [address] [place] [address] Genetic screening* Allergies Active Allergy Reactions Criticality Noted Date [...] aroxysmal atrial fibrillation (HCC),Coronary artery disease involving seminole coronary artery of seminole heart without angina pectoris,Dyslipidemi a, goal LDL [...] every night at bedtime. Active Saline Nasal [place] 0.65 % Nasal Solution ([place]) Administer 1 [place] into nostril as needed for Congestion. Active [...] mouth at bedtime as needed for Sleep. [place] brand 30 Tablet 3 04/14/2024 Active Lisinopril [...] Breath. 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 Increased risk for Hereditary Cardiomyopathy. Please click the link below for a brief summary of current clinical management recommendations for Hypertrophic Cardiomyopathy. 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 The reported somatic variant(s) are not expected to be of germline etiology. Per Chart Review HPI: Florecita is a 69 year old female with a diagnosis of NSCLC compatible with lung adenocarcinoma. - The malignancy is MSI-Stable and Low TMB. - Prior Germline Testing: No - There is a family history of cancer, but is not strongly suggestive of an inherited cancer syndrome. Family History Problem Relation Name Age of Onset Esophageal cancer Mother smoker Stomach cancer Grandmother (Maternal) Bone cancer Aunt (Paternal) Brain cancer Uncle (Paternal) MyGenVar Tumor Sequencing Panel was completed in 06/2024. Note: Review for germline workup is only performed on findings with an associated hereditary cancersyndrome. In general, copy number variation >2 is not of germline concern. Gene Variant Name VAF% Variant Classification EGFR [id number] 59.60% Tier 1: Strong significance RBM10 Q481* 30.60% Tier 2: Potential significance CDKN2A CDKN2A CN 0 Tier 2: Potential significance CDKN2B CDKN2B CN 0.02 Tier 2: Potential significance MET MET CN 6.33 Tier 2: Potential significance EGFR, c.2240_2254del; p.A037_G709 del - Variant Allele Frequency: 30-70% VAF; reported within the tumor specimen at an allele frequency potentially associated with germline origin. Database submissions: - Variant reported in germline per ClinVar. ClinVar ID: [id number]. No reports as a germline variant; only noted as a factor in drug-response. - impression: unlikely germline Unless highlighted in red, the above findings were reviewed and not of germline concern. Radha Meehan MS, [facility] - Licensed, Certified Genetic Counselor 07/14/2024, 10:29 AM documented in this encounter Plan of Treatment Upcoming Encounters Date Type Department Care Team (Late st Contact Info) Description 07/14/2024 1:30 PM EDT Pharmacy Pharmacy Hematology Oncology [facility] [place] [address] [place] [address] [facility] Hem/Onc [address] [place] [address] 07/15/2024 8:30 AM EDT Cardiac Studies Cardiac Studies, [facility] [address] [facility] [place] [address] 10/08/2024 10:20 AM EST Office Visit Pulmonary Medicine, [address] [place] [address] Rico Wall MD [address] [facility] [place] [address] Health Maintenance Due Date Last Done Comments [...] as of this encounter Visit Diagnoses Diagnosis Genetic screening- Primary Other genetic screening documented in this encounter Advance Directives * [...] Directives occurred with: Not Discussed Care Teams Fire Hydrant Mechanic Relationship Specialty Start Date End Date Trisha III, Cj E, MD [address] [facility], [place] [id number] PCP - General Family Medicine 05/19/14 documented as of this encounter
--- OUTSIDE RECORDS SUMMARY | 2024-07-27 08:36 | External Medical Summary | Summary of Care ---
Author Name Unknown Organization [facility] Address [address] [place] [address] Phone [phone] Care Team Providers Care Corrections Caseworker Name Role Phone Trisha DUTTA MD, Cj Cote Primary Care Provider [phone] Reason for Visit * Reason Comments Medication Management Encounter Details Date Type Department Care Team (Late st Contact Info) Description 07/17/2024 1:45 PM EDT Pharmacy Pharmacy Hematology Oncology [facility] [address] [place] [address] [facility] Hem/Onc [address] [place] [address] Primary malignant neoplasm of lung, unspecified laterality (HCC)* Allergies Active Allergy Reactions Criticality Noted Date Comments Losartan Potassium Edema face/lips/tongue High 06/30 Fentanyl Itching 08/30/2016 Oxycodone 06/07/2023 Itching all over Penicillins Edema face/lips/tongue High 11/15/2001 Sulfa Antibiotics Other (Please comment) 2000 Urinary frequency Topiramate 04/09/2023 Other reaction(s): Blurry Vision Tramadol Other (Please comment) 01/01/2018 hallucinations documented as of this encounter (statuses as of 07/17/2024) Medications Medication Sig Dispensed Refills Start Date [...] Paroxysmal atrial fibrillation (HCC),Coronary artery disease involving [place] coronary artery of [place] heart without angina pectoris,Dyslipidem ia, goal LDL [...] every night at bedtime. Active Saline Nasal [place] 0.65 % Nasal Solution ([place]) Administer 1 [place] into nostril as needed for Congestion. Active [...] mouth at bedtime as needed for Sleep. [place] brand 30 Tablet 3 04/14/2024 Active Lisinopril [...] Breath. 360 mL 07/08/2024 08/07/2024 Active Ipratropium [place] 0.02 % Inhalation Solution (Atrovent) Inhale 2.5 [...] without food.. 30 Tablet 5 07/14/2024 Active HYDROcodone Bit-Homatrop MBr 5-1.5 MG/5ML Oral Solution (Hycodan) Take 5 mL by mouth every 6 hours as needed for Cough. 120 mL 07/17/2024 Active Hospital, Clinic, or Other Facility Administered [...] as of this encounter (statuses as of 07/17/2024) Active Problems Problem Noted Date Diagnosed Date COPD, group B, by GOLD 2017 classification 07/07 Overview: Per COPD GOLD Classification Primary lung cancer 06/17/2024 Overview: 3 cm left apex lesion with extensive lymph nodes, small pleural effusion Coronary artery disease invo lving [place] coronary artery of [place] heart with angina pectoris 03/25/2023 Acquired absence of other sp ecified parts of digestive tract 11/10/2022 Arthrodesis status 11/10/2022 Complication of anesthesia 11/10/2022 Compression fracture of T12 vertebra 11/10/2022 Discitis 11/10/2022 Gout 11/10/2022 History of lumbar fusion 11/10/2022 Inflammation of sacroiliac joint 11/10/2022 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 Increased risk for Hereditary Cardiomyopathy. Please click the link below for a brief summary of current clinical management recommendations for Hypertrophic Cardiomyopathy. MYH7 Coronary artery disease invo lving [place] coronary artery of [place] heart without angina pectoris 09/26/2021 MISHRA (dyspnea [...] as of this encounter (statuses as of 07/17/2024) Resolved Problems Problem Noted Date Diagnosed Date [...] as of this encounter (statuses as of 07/17/2024) Immunizations Name Administration Dates Next Due COVID-19 mRNA, LNP-s, No Pre serve, 2-Dose Series ([place]) 10/29/2021,02/07/2021,01/03/2021 PPD 04/27/2010, 0,04/08/2010,04/08,10/25/2006,10/25/2006 Pneumococcal Polysaccharide PPV23 [...] this encounter Progress Notes * Renay Ferrer, [facility] - 07/17/2024 3:18 PM EDT MEDICATION THERAPY MANAGEMENT OSIMERTINIB TREATMENT STATUS NOTE Florecita Quintana [id number] Patient Phone Numbers Communication: Chart review Treatment: Medication: Osimertinib (Tagrisso) Indication/Staging/Diagnosis Code: NSCLC, EGFR19 deletion / Stage IV / C34.12 Dose: 80mg daily Administration: +/- food Start Date: TBD Primary Manipulator Operator/Oncologist: Dr. Hawk Simmons Supportive Care Meds: Ondansetron [...] arrhythmias (including torsades de pointes) Action: Will outreach counselor pt on DDI and monitor ondansetron use The Hematology/Oncology Oral Chemotherapy Clinic will assess medication compliance at each patient encounter Assessment and Plan: Per OV 07/08/24, pt has h/o headache and DJD Baseline ECHO unremarkable Per [facility] note 07/14/24 addendum 07/17/24, pt to bring pharmacy elie application to [facility] 07/18/24 which will be sent to [facility]/P MTM to follow up in 3 days to assess pharmacy elie status Yes/no Date Action Taken [place] plan entered? yes 07/09/24 Consent completed? yes 07/08/24 Intro/med rec completed? yes 07/10/24 Precert completed? yes 07/14/24 Test claim completed? yes 07/14/24 Patient's co-pay will be $ 1939.97 Financial assistance needed? yes Physician signature? yes 07/09/24 Rx released? yes 07/14/24 Education completed? Follow up: 3 days Renay Ferrer, [place], BCOP Clinical Pharmacist, [facility] Oral Chemotherapy [facility] 07/17/2024, 3:20 PM Monitoring Parameters: Estimated CrCl Serum creatinine: [...] Pertinent labs: N/A Time Spent on Encounter: < 5 minutes documented in this encounter Plan of Treatment Upcoming Encounters Date Type Department Care Team (Late st Contact Info) Description 07/22/2024 1:55 PM EDT Pharmacy Pharmacy Hematology Oncology [facility]] [address] [place] [address] [facility] Hem/Onc [address] [place] [address] 10/08/2024 10:20 AM EST Office Visit Pulmonary Medicine, [facility] [address] [facility] [place] [address] Rico Wall MD [address] [facility] [place] [address] Health Maintenance Due [...] Directives occurred with: Not Discussed Care Teams Corrections Caseworker Relationship Specialty Start Date End Date Cj Rico III, MD [address] [place] [address] PCP - General Family Medicine 05/19/14 documented as of this encounter
--- OUTSIDE RECORDS SUMMARY | 2024-07-27 08:36 | External Medical Summary | Summary of Care ---
Author Name Unknown Organization [facility] Address [address] [place] [address] Phone [phone] Care Team Providers Care Director Counseling Bureau Name Role Phone Trisha DUTTA MD, Cj Cote Primary Care Provider [phone] Reason for Referral * Precert (Diagnostic Medical) (Within 10 days (routine)) - Authorized Specialty Diagnoses / Procedures Referred By Contac t Referred To Contact Cardiac Studies Diagnoses Malignant neoplasm of upper lobe of left lung (HCC) Metastasis to mediastinal lymph node (HCC) Procedures ECHO, COMPLETE (2D), TRANS-THORACIC Cortez Simmons MD 200 [facility] [place] [address] Referral ID Status Reason Start Date Expiration Date V isits Requested Visits Authorized [id number] Authorized Precert 07/08/2024 999 999 Reason for Visit * Reason Onset Date Comments Precert Future 07/08/2024 tagris Encounter Details Date Type Department Care Team (Late st Contact Info) Description 07/08/2024 Telephone Hematology/Oncology Treatment, [place] [address] [place] [phone] Cortez Simmons [facility] [address] [facility] [address] Precert Future (tagrisso) Allergies Active Allergy Reactions Criticality Noted Date Comments Losartan Potassium Edema face/lips/tongue High 06/30 Fentanyl Itching 08/30/2016 Oxycodone 06/07/2023 Itching all over Penicillins Edema face/lips/tongue High 11/15/2001 Sulfa Antibiotics Other (Please comment) 2000 Urinary frequency Topiramate 04/09/2023 Other reaction(s): Blurry Vision Tramadol Other (Please comment) 01/01/2018 hallucinations documented as of this encounter (statuses as of 07/16/2024) Medications Medication Sig Dispensed Refills Start Date [...] :Paroxysmal atrial fibrillation (HCC),Coronary artery disease involving squaxin coronary artery of squaxin heart without angina pectoris,Dyslipide [place], goal LDL [...] every night at bedtime. Active Saline Nasal [place] 0.65 % Nasal Solution ([place]) Administer 1 [place] into nostril as needed for Congestion. Active [...] mouth at bedtime as needed for Sleep. [place] brand 30 Tablet 3 04/14/2024 Active Lisinopril [...] Breath. 360 mL 07/08/2024 4 Active Ipratropium [place] 0.02 % Inhalation Solution (Atrovent) Inhale 2.5 mL via nebulizer every 6 hours as needed for Wheezing. 300 mL 07/08/2024 4 Active HYDROcodone Bit-Homatrop MBr 5-1.5 MG/5ML Oral Solution (Hycodan) Take 5 mL by mouth every 6 hours as needed for Cough. 120 mL 07/08/2024 Active Ondansetron HCl 4 MG Oral Tablet [...] discontinua tion) Benzonatate 100 MG Oral Capsule (Tessalon Perles)Indications :Simple chronic bronchitis (HCC) Take 1 Capsule [...] 07/08/2024 4 Discontinue d(Patient preference/ discontinua tion) Hospital, Clinic, or Other Facility Administered Medication [...] as of this encounter (statuses as of 07/16/2024) Active Problems Problem Noted Date Diagnosed Date COPD, group B, by GOLD 2017 classification 07/07 Overview: Per COPD GOLD Classification Primary lung cancer 06/17/2024 Overview: 3 cm left apex lesion with extensive lymph nodes, small pleural effusion Coronary artery disease invo lving squaxin coronary artery of squaxin heart with angina pectoris 03/25/2023 Acquired absence of other sp ecified parts of digestive tract 11/10/2022 Arthrodesis status 11/10/2022 Complication of anesthesia 11/10/2022 Compression fracture of T12 vertebra 11/10/2022 Discitis 11/10/2022 Gout 11/10/2022 History of lumbar fusion 11/10/2022 Inflammation of sacroiliac joint 11/10/2022 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 Increased risk for Hereditary Cardiomyopathy. Please click the link below for a brief summary of current clinical management recommendations for Hypertrophic Cardiomyopathy. MYH7 Coronary artery disease invo lving squaxin coronary artery of squaxin heart without angina pectoris 09/26/2021 MISHRA (dyspnea [...] as of this encounter (statuses as of 07/16/2024) Resolved Problems Problem Noted Date Diagnosed Date [...] as of this encounter (statuses as of 07/16/2024) Immunizations Name Administration Dates Next Due COVID-19 [...] with appetite stimulation? * Telephone Encounter - Bebe Dean RN - 07/15/2024 11:24 AM EDT Tagrisso can come from [facility]. Left message for patient letting her know. * Telephone Encounter - Bebe Dean RN - 07/10/2024 3:16 PM EDT Echo 07/15/24. Per Dr Simmons, patient will need PET skull base to mid thigh about 3 months after starting tagrisso. * Telephone Encounter - Bebe Dean RN - 07/08/2024 3:50 PM EDT Education complete. Consent signed. EKG/ labs being done today. Echo to be scheduled. * Addendum Note - Bebe Dean RN - 07/08/2024 2:47 PM EDTAddended by: BEBE DEAN on: 07/08/2024 02:47 PM Modules accepted: Orders * Telephone Encounter - Bebe Dean RN - 07/08/2024 2:02 PM EDT Order received for tagrisso. Forwarded order to [facility]. Patient needs to come to office [...] 1:45 PM EDT Pharmacy Pharmacy Hematology Oncology [facility] [address] [place] [address] [facility] Hem[facility]Onc [address] [place] [address] 10/08/2024 10:20 AM EST Office Visit Pulmonary Medicine, [facility] [address] [facility] [place] [address] Rico Wall MD [address] [facility] [place] [address] Health Maintenance Due Date Last Done [...] COMPLETE (2D), TRANS-THORACIC (07/15/2024 9:13 AM EDT) Pathologist [facility] LEFT VENTRICULAR EJECTION FRACTION 60 % [facility] 07/15/2024 8:20 AM EDT Cortez Simmons MD ECHOCARDIOLOGY [facility] * COMPREHENSIVE METABOLIC PANEL (07/08/2024 4:05 PM EDT) Pathologist [facility] BUN 12 6 - 20 mg/dL 07/08/2024 4:29 PM EDT [facility] 56-02 Creatinine 0.7 0.5 - 1.0 mg/dL 07/08/2024 4:29 PM EDT [facility] 56-02 Estimated Glomerular Filtration Rate >90 >=60 mL/min 07/08/2024 4:29 PM EDT [facility] 56 Comment:eGFR is calculated b ased on the CKD-EPI 2020 equation. Sodium 137 135 - 146 mmol/L 07/08/2024 4:29 PM EDT [address] Potassium 4.3 3.5 - 5.1 mmol/L 07/08/2024 4:29 PM EDT [address] Chloride 103 98 - 107 mmol/L 07/08/2024 4:29 PM EDT [address] CO2 23 22 - 32 mmol/L 07/08/2024 4:29 PM EDT [address] Anion Gap 11 7 - 15 mmol/L 07/08/2024 4:29 PM EDT [address] Glucose 99 70 - 120 mg/dL 07/08/2024 4:29 PM EDT [address] Albumin 4.1 3.8 - 5.0 g/dL 07/08/2024 4:[address] PM EDT [address] AST 14 10 - 35 U/L 07/08/2024 4:29 PM EDT [address] Alkaline Phosphatase 68 35 - 130 U/L 07/08/2024 4:29 PM EDT [address] Bilirubin, Total 0.6 <=1.2 mg/dL 07/08/2024 4:29 PM EDT [address] Calcium 9.2 8.4 - 10.2 mg/dL 07/08/2024 4:29 PM EDT [address] Protein 6.3 6.0 - 8.3 g/dL 07/08/2024 4:[address] PM EDT [address] ALT 22 10 - 35 U/L 07/08/2024 4:29 PM EDT [facility] 56 Blood Venous blood specimen / Unknown Venipuncture / Unknown 07/08/2024 4:05 PM EDT 07/08/2024 4:05 PM EDT Cortez Simmons MD LAB BLOOD ORDERABLES [address] [place] [address] * HEPATITIS B CORE ANTIBODIES IGG AND IGM (07/08/2024 4:05 PM EDT) Hepatitis B Core Antibodies IgG and IgM Negative Negative 07/09/2024 3:15 AM EDT LABORATORY [facility] Blood Venous blood specimen / Unknown Venipuncture / Unknown 07/08/2024 4:05 PM EDT 07/08/2024 4:05 PM EDT Cortez Simmons MD LAB BLOOD ORDERABLES Performing Organization Address City/[facility] Co de Phone Number LABORATORY [facility] [address] [place] [address] * HEPATITIS B SURFACE ANTIGEN (07/08/2024 4:05 PM EDT) Pathologist [facility] Hepatitis B Surface Antigen Negative Negative 07/09/2024 3:15 AM EDT LABORATORY [facility] Blood Venous blood specimen / Unknown Venipuncture / Unknown 07/08/2024 4:05 PM EDT 07/08/2024 4:05 PM EDT Cortez Simmons MD LAB BLOOD ORDERABLES Performing Organization Address [facility] de Phone Number LABORATORY [facility] [address] [place] [address] * HEPATITIS B SURFACE ANTIBODY (07/08/2024 4:05 PM EDT) Pathologist [facility] Hepatitis B Surface Antibody, Quantitative <3.5 mIU/mL 07/09/2024 3:15 AM EDT LABORATORY [facility] Hepatitis B Surface Antibody, Qualitative Negative 07/09/2024 3:15 AM EDT LABORATORY [facility] Hepatitis B Surface Antibody, Interpretation NOT immune to Hepatitis B Virus 07/09/2024 3:15 AM EDT LABORATORY [facility] Comment: POSITIVE: >=11.5 mIU/mL INDETERMINATE: 8.5-<11.5 mIU/mL NEGATIVE: <8.5 mIU/mL Blood Venous blood specimen / Unknown Venipuncture / Unknown 07/08/2024 4:05 PM EDT 07/08/2024 4:05 PM EDT Cortez Simmons MD LAB BLOOD ORDERABLES Performing Organization Address City/[facility] Co de Phone Number LABORATORY [facility] [address] [place] [address] * EKG (07/08/2024 3:50 PM EDT) 07/08/2024 [...] leads Ventricular Rate: 69 Atrial Rate: 69 DE Interval: 124 QRS Duration: 72 QT/QTc: 416/445 ms P-R-T [place]: 56 : 27 : 27 degrees Cortez Simmons MD EKG Performing Organization Address [facility] Co de Phone Number [facility] documented in this encounter Visit Diagnoses [...] occurred with: Not Discussed Care Teams Director Counseling Bureau Relationship Specialty Start Date End Date Cj Rico III, MD [address] [facility] [place] [address] PCP - General Family Medicine 05/19/14 documented as of this encounter
--- OUTSIDE RECORDS SUMMARY | 2024-07-27 08:36 | External Medical Summary | Summary of Care ---
Author Name Unknown Organization [facility] Address [address] [place] [address] Phone [phone] Care Team Providers Care Buyer Broker Name Role Phone Trisha DUTTA MD, Cj Cote Primary Care Provider [phone] Reason for Referral * Precert (Diagnostic Medical) (Within 10 days (routine)) - Authorized Specialty Diagnoses / Procedures Referred By Contac t Referred To Contact Cardiac Studies Diagnoses Malignant neoplasm of upper lobe of left lung (HCC) Metastasis to mediastinal lymph node (HCC) Procedures ECHO, COMPLETE (2D), TRANS-THORACIC Cortez Simmons MD 200 [facility] [place] [address] Referral ID Status Reason Start Date Expiration Date V isits Requested Visits Authorized [id number] Authorized Precert 07/08/2024 999 999 Reason for Visit * Reason Onset Date Comments Precert Future 07/08/2024 tagris Encounter Details Date Type Department Care Team (Late st Contact Info) Description 07/08/2024 Telephone Hematology/Oncology Treatment, [place] [address] [place] [phone] Cortez Simmons MD [address] [facility] [address] Precert Future (tagrisso) Allergies Active Allergy Reactions Criticality Noted Date Comments Losartan Potassium Edema face/lips/tongue High 06/30 Fentanyl Itching 08/30/2016 Oxycodone 06/07/2023 Itching all over Penicillins Edema face/lips/tongue High 11/15/2001 Sulfa Antibiotics Other (Please comment) 2000 Urinary frequency Topiramate 04/09/2023 Other reaction(s): Blurry Vision Tramadol Other (Please comment) 01/01/2018 hallucinations documented as of this encounter (statuses as of 07/15/2024) Medications Medication Sig Dispensed Refills Start Date [...] Paroxysmal atrial fibrillation (HCC),Coronary artery disease involving [place] coronary artery of [place] heart without angina pectoris,Dyslipidem ia, goal LDL [...] every night at bedtime. Active Saline Nasal [place] 0.65 % Nasal Solution ([place]) Administer 1 [place] into nostril as needed for Congestion. Active [...] mouth at bedtime as needed for Sleep. [place] brand 30 Tablet 3 04/14/2024 Active Lisinopril [...] Active Benzonatate 100 MG Oral Capsule (Tessalon [place])Indications: Simple chronic bronchitis (HCC) Take 1 Capsule by mouth 3 times a day as needed for Cough. Do not cut, crush, or chew. 50 Capsule 1 07/06/2024 Active LORazepam 0.5 MG Oral Tablet (Ativan) Take 1 Tablet by mouth every 6 hours as needed for Anxiety or Other (muscle spasm). 30 Tablet 1 07/07/2024 Active Promethazine-Codein e 6.25-10 MG/5ML Oral Syrup (Phenergan [...] Breath. 360 mL 07/08/2024 08/07/2024 Active Ipratropium [place] 0.02 % Inhalation Solution (Atrovent) Inhale 2.5 mL via nebulizer every 6 hours as needed for Wheezing. 300 mL 07/08/2024 08/07/2024 Active guaiFENesin-Codeine 100-10 MG/5ML Oral Solution (Robitussin AC)Indications:Dena gnant neoplasm of lung, unspecified laterality, unspecified part of lung (HCC) Take 5 mL by mouth 3 times a day as needed for Cough. 180 mL 1 07/08/2024 Active HYDROcodone Bit-Homatrop MBr 5-1.5 MG/5ML Oral Solution (Hycodan) Take 5 mL by mouth every 6 hours as needed for Cough. 120 mL 07/08/2024 Active Hospital, Clinic, or Other Facility Administered [...] as of this encounter (statuses as of 07/15/2024) Active Problems Problem Noted Date Diagnosed Date COPD, group B, by GOLD 2017 classification 07/07 Overview: Per COPD GOLD Classification Primary lung cancer 06/17/2024 Overview: 3 cm left apex lesion with extensive lymph nodes, small pleural effusion Coronary artery disease invo lving [place] coronary artery of [place] heart with angina pectoris 03/25/2023 Acquired absence of other sp ecified parts of digestive tract 11/10/2022 Arthrodesis status 11/10/2022 Complication of anesthesia 11/10/2022 Compression fracture of T12 vertebra 11/10/2022 Discitis 11/10/2022 Gout 11/10/2022 History of lumbar fusion 11/10/2022 Inflammation of sacroiliac joint 11/10/2022 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 Increased risk for Hereditary Cardiomyopathy. Please click the link below for a brief summary of current clinical management recommendations for Hypertrophic Cardiomyopathy. MYH7 Coronary artery disease invo lving [place] coronary artery of [place] heart without angina pectoris 09/26/2021 MISHRA [...] as of this encounter (statuses as of 07/15/2024) Resolved Problems Problem Noted Date Diagnosed Date [...] as of this encounter (statuses as of 07/15/2024) Immunizations Name Administration Dates Next Due COVID-19 [...] 11:24 AM EDT Tagrisso can come from [facility]. Left message for patient letting her know. [...] Order received for tagrisso. Forwarded order to [facility]. Patient needs to come to [...] 1:45 PM EDT Pharmacy Pharmacy Hematology Oncology [address] [address] [facility] Hem/Onc [address] [place] [address] 10/08/2024 10:20 AM EST Office Visit Pulmonary Medicine, [facility] [address] [facility] [place] [address] Rico Wall MD [address] [place] [address] Pending Results Name Type Priority Associated Diagnoses Date /Time ECHO, COMPLETE (2D), TRANS-THORACIC Echocardiology Routine Malignant neoplasm of upper lobe of left lung (HCC) Metastasis to mediastinal lymph node (HCC) 07/15/2024 9:13 AM EDT Scheduled Orders Name Type Priority Associated Diagnoses Orde r Schedule ECHO, COMPLETE (2D), TRANS-THORACIC Echocardiology Routine Malignant neoplasm of upper lobe of left lung (HCC) Metastasis to mediastinal lymph node (HCC) Expected: 07/08/2024 (Approximate), Expires: 08/08/2026 Health Maintenance Due Date Last Done Comments [...] filedocumented as of this encounter Results * COMPREHENSIVE METABOLIC PANEL (07/08/2024 4:05 PM EDT) BUN 12 6 - 20 mg/dL 07/08/2024 4:29 PM EDT [facility] 56 Creatinine 0.7 0.5 - 1.0 mg/dL 07/08/2024 4:29 PM EDT [facility] 56 Estimated Glomerular Filtration Rate >90 >=60 mL/min 07/08/2024 4:29 PM EDT [facility] 56 Comment:eGFR is calculated b ased on the CKD-EPI 2020 equation. Sodium 137 135 - 146 mmol/L 07/08/2024 4:29 PM EDT [facility] 56- Potassium 4.3 3.5 - 5.1 mmol/L 07/08/2024 4:29 PM EDT [facility] 56- Chloride 103 98 - 107 mmol/L 07/08/2024 4:29 PM EDT [facility] 56- CO2 23 22 - 32 mmol/L 07/08/2024 4:29 PM EDT [facility] 56- Anion Gap 11 7 - 15 mmol/L 07/08/2024 4:29 PM EDT [facility] 56- Glucose 99 70 - 120 mg/dL 07/08/2024 4:29 PM EDT [facility] 56- Albumin 4.1 3.8 - 5.0 g/dL 07/08/2024 4:29 PM EDT [facility] 56- AST 14 10 - 35 U/L 07/08/2024 4:29 PM EDT [facility] 56- Alkaline Phosphatase 68 35 - 130 U/L 07/08/2024 4:29 PM EDT [facility] 56- Bilirubin, Total 0.6 <=1.2 mg/dL 07/08/2024 4:29 PM EDT [facility] 56-02 Calcium 9.2 8.4 - 10.2 mg/dL 07/08/2024 4:29 PM EDT [facility] 56-02 Protein 6.3 6.0 - 8.3 g/dL 07/08/2024 4:29 PM EDT [facility] 56-02 ALT 22 10 - 35 U/L 07/08/2024 4:29 PM EDT [facility] 56-02 Blood Venous blood specimen / Unknown Venipuncture / Unknown 07/08/2024 4:05 PM EDT 07/08/2024 4:05 PM EDT Cortez Simmons MD LAB BLOOD ORDERABLES [facility] [address] [place] [address] * HEPATITIS B CORE ANTIBODIES IGG AND IGM (07/08/2024 4:05 PM EDT) Hepatitis B Core Antibodies IgG and IgM Negative Negative 07/09/2024 3:15 AM EDT LABORATORY [facility] Blood Venous blood specimen / Unknown Venipuncture / Unknown 07/08/2024 4:05 PM EDT 07/08/2024 4:05 PM EDT Cortez Simmons MD LAB BLOOD ORDERABLES LABORATORY [facility] [address] [place] [address] * HEPATITIS B SURFACE ANTIGEN (07/08/2024 4:05 PM EDT) Hepatitis B Surface Antigen Negative Negative 07/09/2024 3:15 AM EDT LABORATORY [facility] Blood Venous blood specimen / Unknown Venipuncture / Unknown 07/08/2024 4:05 PM EDT 07/08/2024 4:05 PM EDT Cortez Simmons MD LAB BLOOD ORDERABLES LABORATORY [facility] [address] [place] [address] * HEPATITIS B SURFACE ANTIBODY (07/08/2024 4:05 PM EDT) Hepatitis B Surface Antibody, Quantitative <3.5 mIU/mL 07/09/2024 3:15 AM EDT LABORATORY [facility] Hepatitis B Surface Antibody, Qualitative Negative 07/09/2024 3:15 AM EDT LABORATORY [facility] Hepatitis B Surface Antibody, Interpretation NOT immune to Hepatitis B Virus 07/09/2024 3:15 AM EDT LABORATORY [facility] Comment: POSITIVE: >=11.5 mIU/mL INDETERMINATE: 8.5-<11.5 mIU/mL NEGATIVE: <8.5 mIU/mL Blood Venous blood specimen / Unknown Venipuncture / Unknown 07/08/2024 4:05 PM EDT 07/08/2024 4:05 PM EDT Cortez Simmons MD LAB BLOOD ORDERABLES Performing Organization Address City/[facility] Co de Phone Number LABORATORY [facility] [address] [place] [address] * EKG (07/08/2024 3:50 PM EDT) 07/08/2024 [...] leads Ventricular Rate: 69 Atrial Rate: 69 [place] Interval: 124 QRS Duration: 72 QT/QTc: 416/445 ms P-R-T [place]: 56 : 27 : 27 degrees Cortez Simmons MD EKG Performing Organization Address City/[facility]/ZIP Co de Phone Number [facility] documented in this encounter Visit Diagnoses [...] Directives occurred with: Not Discussed Care Teams Buyer Broker Relationship Specialty Start Date End Date Cj Rico III, MD [address] [facility] [place] [address] PCP - General Family Medicine 05/19/14 documented as of this encounter
--- OUTSIDE RECORDS SUMMARY | 2024-07-27 08:36 | External Medical Summary | Summary of Care ---
Author Name Unknown Organization [facility] Address [address] [place] [address] Phone [phone] Care Team Providers Care Marine Equipment Preservation Inspector Name Role Phone Trisha DUTTA MD, Cj Cote Primary Care Provider [phone] Reason for Referral * Precert (Diagnostic Medical) (Within 24 hrs (call dept; emergent)) - Authorized Specialty Diagnoses / Procedures Referred By Contac t Referred To Contact Cardiac Studies Diagnoses Primary malignant neoplasm of lung, unspecified laterality (HCC) Procedures ECHO, COMPLETE (2D), TRANS-THORACIC Chana Carter, [facility] [address] [place] [address] Referral ID Status Reason Start Date Expiration Date V isits Requested Visits Authorized [id number] Authorized Precert 07/14/2024 999 999 * Evaluate & Treat - Unlimited Visits (Within 10 days (routine)) - Authorized Specialty Diagnoses / Procedures Referred By Contac t Referred To Contact Pharmacist / Pharmacy Diagnoses Primary malignant neoplasm of lung, unspecified laterality (HCC) Chana Carter, [facility] [address] [place] [address] Referral ID Status Reason Start Date Expiration Date Visits Requested Visits Authorized [id number] Authorized Specialty Services Required 07/14/2024 99 99 Question Answer Referral Priority Within 10 days (routine) Where should this appointment be scheduled? [facility] Referring Provider Role: Specialist Specialty: Heme/Onc Reason for Referral: Oral Chemo Has consent been obtained for new oral chemo agent(s)? Yes Comments ORAL CHEMOTHERAPY MTDM MONITORING REFERRAL This patient is being referred to the Oral Chemotherapy Clinic for medication co-management. The planned duration of treatment is: Until disease progression/toxicity Please start oral chemotherapy: Once therapy has arrived from specialty pharmacy Oral Chemotherapy Monitoring will continue until one of the following discharge criteria has been met. The provider will be informed if any of these occur. 1. Disease progression. 2. Patient non-compliance 3. Compliance and tolerating treatment well without major toxicities with routine provider follow up. 4. Completion of therapy. Additional Comments: N/A By my signature, I understand that my patient will have their medication therapy managed by the [facility] ([facility]) per established policies, procedures, and protocols. I also certify that this referral may serve as an initiation of service for the management of drug therapy in the above noted patient. [facility] providers will be responsible for scheduling patient visits, obtaining appropriate laboratory studies, and adjusting medication management therapy per patient's need, in addition to those roles spelled out in the clinic policy, procedures, and drug management protocols. I understand that the service provided by the [facility] Clinic is voluntary and have informed patient that they can refuse the service at their discretion. I am aware that the [facility] Clinic will provide me with a copy of the patient encounter via my [employer]. I authorize the [facility] Clinic to carry out these activities on my behalf. I consider this program to be a necessary part of the patient's medical care. Encounter Details Date Type Department Care Team (Late st Contact Info) Description 07/09/2024 Orders Only Hematology/Oncology [place] [address] [facility] [place] [phone] Cortez Simmons MD [address] [facility] [place] [address] Primary malignant neoplasm of lung, unspecified laterality [...] aroxysmal atrial fibrillation (HCC),Coronary artery disease involving ambler coronary artery of ambler heart without angina pectoris,Dyslipidemi a, goal LDL [...] every night at bedtime. Active Saline Nasal [place] 0.65 % Nasal Solution ([place]anderson) Administer 1 [place] into nostril as needed for Congestion. Active [...] mouth at bedtime as needed for Sleep. [place] brand 30 Tablet 3 04/14/2024 Active Lisinopril [...] Active Benzonatate 100 MG Oral Capsule (Tessalon Perldesi)Indications:S imple chronic bronchitis (HCC) Take 1 Capsule [...] Breath. 360 mL 07/08/2024 4 Active Ipratropium [place] 0.02 % Inhalation Solution (Atrovent) Inhale 2.5 [...] 07/09/2024 Active Hydrocortisone 1 % External CreamIndications:Yumiko nancy malignant neoplasm of lung, unspecified laterality (HCC) [...] pleural effusion Coronary artery disease invo lving ambler coronary artery of ambler heart with angina pectoris 03/25/2023 Acquired absence of other sp ecified parts of digestive tract 11/10/2022 Arthrodesis status 11/10/2022 Complication of anesthesia 11/10/2022 Compression fracture of T12 vertebra 11/10/2022 Discitis 11/10/2022 Gout 11/10/2022 History of lumbar fusion 11/10/2022 Inflammation of sacroiliac joint 11/10/2022 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 Increased risk for Hereditary Cardiomyopathy. Please click the link below for a brief summary of current clinical management recommendations for Hypertrophic Cardiomyopathy. MYH7 Coronary artery disease invo lving ambler coronary artery of ambler heart without angina pectoris 09/26/2021 MISHRA (dyspnea [...] mRNA, LNP-s, No Pre serve, 2-Dose Series (Kindara) 10/29/2021,02/07/2021,01/03/2021 PPD 04/27/2010, 0,04/08/2010,04/08,10/25/2006,10/25/2006 Pneumococcal Polysaccharide PPV23 [...] as of this encounter Miscellaneous Notes * Addendum Note - Chana Carter, [facility] - 07/14/2024 2:48 PM EDTAddended by: CHANA CARTER on: 07/14/2024 02:48 PM Modules accepted: Orders documented in this encounter Plan of Treatment Upcoming Encounters Date Type Department Care Team (Late st Contact Info) Description 07/15/2024 8:30 AM EDT Cardiac Studies Cardiac Studies, [facility] [address] [facility] [place] [address] 10/08/2024 10:20 AM EST Office Visit Pulmonary Medicine, [facility] [address] [facility] [place] [address] Rico Wall MD [address] [place] [address] Scheduled Orders Name Type Priority Associated Diagnoses Orde r Schedule CBC WITH WBC DIFFERENTIAL Lab STAT Primary malignant neoplasm of lung, unspecified laterality (HCC) Every 3 Months for 4 Occurrences starting 07/14/2024 until 07/14/2025 COMPREHENSIVE METABOLIC PANEL Lab STAT Primary malignant neoplasm of lung, unspecified laterality (HCC) Other, Please specify in Comments field for 6 Occurrences starting 07/14/2024 until 07/14/2025 EKG EKG STAT Primary malignant neoplasm of lung, unspecified laterality (HCC) Other, Please specify in Comments field for 6 Occurrences starting 07/14/2024 until 07/14/2025 ECHO, COMPLETE (2D), TRANS-THORACIC Echocardiology STAT Primary malignant neoplasm of lung, unspecified laterality (HCC) Other, Please specify in Comments field for 6 Occurrences starting 07/14/2024 until 07/14/2025 Scheduled Referrals Name Type Priority Associated Diagnoses Orde r Schedule PHARMACIST MEDS THERAPY MGMT REFERRAL OP Referral Within 10 days (routine) Primary malignant neoplasm of lung, unspecified laterality (HCC) Ordered: 07/14/2024 Health Maintenance Due Date Last Done Comments Alpha-1 Antitrypsin 1971 Cologuard 1998 Fecal Occult Blood Test 1998 Sigmoidoscopy 1998 Zoster Vaccines (1 of 2) 2003 Pneumococcal Vaccine: 65+ Years (2 of 2 - PCV) 10/21/2017 10/21/2016 Adult Wellness Visit 2019 DTaP,Tdap,and Td Vaccines (2 - Td or Tdap) 06/09/2019 06/09/2009 COVID-19 Vaccine (4 - 2022-24 season) 2023 10/29/2021, 02/07/2021, 01/03/2021 [...] Directives occurred with: Not Discussed Care Teams Marine Equipment Preservation Inspector Relationship Specialty Start Date End Date Cj Rico III, MD [address] [place] [address] PCP - General Family Medicine 05/19/14 documented as of this encounter
--- OUTSIDE RECORDS SUMMARY | 2024-07-27 08:36 | External Medical Summary | Summary of Care ---
Author Name Unknown Organization [facility] Address [address] [place] [address] Phone [phone] Care Team Providers Care Direct Support Professional Caregiver Name Role Phone Trisha DUTTA MD, Cj Cote Primary Care Provider [phone] Reason for Referral * Precert (Diagnostic Medical) (Within 10 days (routine)) - Authorized Specialty Diagnoses / Procedures Referred By Contac t Referred To Contact Cardiac Studies Diagnoses Malignant neoplasm of upper lobe of left lung (HCC) Metastasis to mediastinal lymph node (HCC) Procedures ECHO, COMPLETE (2D), TRANS-THORACIC Cortez Simmons MD [address] [facility] [place] [address] Referral ID Status Reason Start Date Expiration Date V isits Requested Visits Authorized [id number] Authorized Precert 07/08/2024 999 999 Reason for Visit * Reason Onset Date Comments Precert Future 07/08/2024 tagris Encounter Details Date Type Department Care Team (Late st Contact Info) Description 07/08/2024 Telephone Hematology/Oncology Treatment, [place] [address] [place] [phone] [facility] [id number] Precert Future (tagrisso) Allergies Active Allergy Reactions [...] :Paroxysmal atrial fibrillation (HCC),Coronary artery disease involving [place] coronary artery of [place] heart without angina pectoris,Dyslipide daylin, goal LDL [...] every night at bedtime. Active Saline Nasal [place] 0.65 % Nasal Solution ([place]) Administer 1 Gyps[place] into nostril as needed for Congestion. Active [...] mouth at bedtime as needed for Sleep. [place] brand 30 Tablet 3 04/14/2024 Active Lisinopril [...] Breath. 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 Increased risk for Hereditary Cardiomyopathy. Please click the link below for a brief summary of current clinical management recommendations for Hypertrophic Cardiomyopathy. MYH7 Coronary artery disease invo lving [place] coronary artery of [place] heart without angina pectoris 09/26/2021 MISHRA (dyspnea [...] encounter Miscellaneous Notes * Telephone Encounter - Cortez Simmons MD [...] 11:24 AM EDT Tagrisso can come from [facility]. Left message for patient letting [...] RN - 07/08/2024 2:47 PM EDTAddended by: EBBE DEAN on: 07/08/2024 02:47 PM Modules accepted: Orders * Telephone Encounter - Bebe Dean RN - 07/08/2024 2:02 PM EDT Order received for zeeshan. Forwarded order to [facility]. Patient needs to come to [...] 1:45 PM EDT Pharmacy Pharmacy Hematology Oncology [place] [address] [place] [address] [facility] Hem/Onc [address] [place] [address] 10/08/2024 10:20 AM EST Office Visit Pulmonary Medicine, [facility] [address] [facility] [place] [address] Rico Wall MD [address] [facility] [phone] Health Maintenance Due Date Last Done Comments [...] EDT) LEFT VENTRICULAR EJECTION FRACTION 60 % [facility] 07/15/2024 8:20 AM EDT Cortez Simmons MD ECHOCARDIOLOGY [facility] * COMPREHENSIVE METABOLIC PANEL (07/08/2024 4:05 PM EDT) Pathologist [facility] BUN 12 6 - 20 mg/dL 07/08/2024 4:29 PM EDT [facility] 56 Creatinine 0.7 0.5 - 1.0 mg/dL 07/08/2024 4:29 PM EDT [facility] 56 Estimated Glomerular Filtration Rate >90 >=60 mL/min 07/08/2024 4:29 PM EDT [facility] 56 Comment:eGFR is calculated b ased on the CKD-EPI 2020 equation. Sodium 137 135 - 146 mmol/L 07/08/2024 4:29 PM EDT [facility] 56 Potassium 4.3 3.5 - 5.1 mmol/L 07/08/2024 4:29 PM EDT [facility] 56 Chloride 103 98 - 107 mmol/L 07/08/2024 4:29 PM EDT [address] CO2 23 22 - 32 mmol/L 07/08/2024 4:29 PM EDT [address] Anion Gap 11 7 - 15 mmol/L 07/08/2024 4:29 PM EDT [address] Glucose 99 70 - 120 mg/dL 07/08/2024 4:29 PM EDT [facility] 56 Albumin 4.1 3.8 - 5.0 g/dL 07/08/2024 4:29 PM EDT [facility] 56 AST 14 10 - 35 U/L 07/08/2024 4:29 PM EDT [facility] 56 Alkaline Phosphatase 68 35 - 130 U/L 07/08/2024 4:29 PM EDT [facility] 56 Bilirubin, Total 0.6 <=1.2 mg/dL 07/08/2024 4:29 PM EDT [facility] 56 Calcium 9.2 8.4 - 10.2 mg/dL 07/08/2024 4:29 PM T [facility] 56 Protein 6.3 6.0 - 8.3 g/dL 07/08/2024 4:29 PM EDT [facility] 56 ALT 22 10 - 35 U/L 07/08/2024 4:29 PM T [facility] 56 Blood Venous blood specimen / Unknown Venipuncture / Unknown 07/08/2024 4:05 PM EDT 07/08/2024 4:05 PM EDT Cortez Simmons MD LAB BLOOD ORDERABLES [facility] [place] [address] [place] [address] * HEPATITIS B CORE ANTIBODIES IGG AND IGM (07/08/2024 4:05 PM EDT) Hepatitis B Core Antibodies IgG and IgM Negative Negative 07/09/2024 3:15 AM EDT [facility] Blood Venous blood specimen / Unknown Venipuncture / Unknown 07/08/2024 4:05 PM EDT 07/08/2024 4:05 PM EDT Cortez Simmons MD LAB BLOOD ORDERABLES Performing Organization Address [facility] Co de Phone Number LAB[facility]ATORY [facility] [address] [place] [address] * HEPATITIS B SURFACE ANTIGEN (07/08/2024 4:05 PM EDT) Hepatitis B Surface Antigen Negative Negative 07/09/2024 3:15 AM EDT [facility]ORY [facility] Blood Venous blood specimen / Unknown Venipuncture / Unknown 07/08/2024 4:05 PM EDT 07/08/2024 4:05 PM EDT Cortez Simmons MD LAB BLOOD ORDERABLES Performing Organization Address [facility] Co de Phone Number LAB[facility]ATORY [facility] [address] [place] [address] * HEPATITIS B SURFACE ANTIBODY (07/08/2024 4:05 PM EDT) Hepatitis B Surface Antibody, Quantitative <3.5 mIU/mL 07/09/2024 3:15 AM EDT [facility] Hepatitis B Surface Antibody, Qualitative Negative 07/09/2024 3:15 AM EDT [facility] Hepatitis B Surface Antibody, Interpretation NOT immune to Hepatitis B Virus 07/09/2024 3:15 AM EDT LAB[facility]ORY [facility] Comment: POSITIVE: >=11.5 mIU/mL INDETERMINATE: 8.5-<11.5 mIU/mL NEGATIVE: <8.5 mIU/mL Blood Venous blood specimen / Unknown Venipuncture / Unknown 07/08/2024 4:05 PM EDT 07/08/2024 4:05 PM EDT Cortez Simmons MD LAB BLOOD ORDERABLES Performing Organization Address [facility] Co de Phone Number LAB[facility]ATORY [facility] [address] [place] [address] * EKG (07/08/2024 3:50 PM EDT) 07/08/2024 [...] leads Ventricular Rate: 69 Atrial Rate: 69 GA Interval: 124 QRS Duration: 72 QT/QTc: 416/445 ms P-R-T Felton: 56 : 27 : 27 degrees Cortez Simmons MD EKG Performing Organization Address [facility] Co de Phone Number [facility] documented in this encounter Visit [...] Directives occurred with: Not Discussed Care Teams Direct Support Professional Caregiver Relationship Specialty Start Date End Date Cj Rico III, MD [address] [facility] [place] [place] [address] PCP - General Family Medicine 05/19/14 documented as of this encounter
--- OUTSIDE RECORDS SUMMARY | 2024-07-27 08:36 | External Medical Summary | Summary of Care ---
Author Name Unknown Organization [facility] Address [address] [place] [address] Phone [phone] Care Team Providers Care Training Administrator Name Role Phone Trisha DTUTA MD, Cj Cote Primary Care Provider [phone] Encounter Details Date Type Department Care Team (Late st Contact Info) Description 07/16/2024 Abstract Hematology/Oncology [employer] [address] [facility] [place] [phone] Cortez Simmons MD [address] [facility] [place] [address] Allergies Active Allergy Reactions Criticality Noted Date [...] Paroxysmal atrial fibrillation (HCC),Coronary artery disease involving [place] coronary artery of [place] heart without angina pectoris,Dyslipidem ia, goal LDL [...] every night at bedtime. Active Saline Nasal [place] 0.65 % Nasal Solution (Andrew) Administer 1 [place] into nostril as needed for Congestion. Active [...] mouth at bedtime as needed for Sleep. [place] brand 30 Tablet 3 04/14/2024 Active Lisinopril [...] or Shortness of Breath. 360 mL 07/08/2024 Active Ipratropium [place] 0.02 % Inhalation Solution (Atrovent) Inhale 2.5 mL via nebulizer every 6 hours as needed for Wheezing. 300 mL 07/08/2024 Active HYDROcodone Bit-Homatrop MBr 5-1.5 MG/5ML Oral Solution (Hycodan) Take 5 mL by mouth every 6 hours as needed for Cough. 120 mL 07/08/2024 Active Hydrocortisone 1 % External [...] without food.. 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) 500 mg on day 1, followed by 250 mg once daily for 4 days 6 Tablet 07/09/2024 4 Discontinu ed(Medicat ion List Clean Up) Hospital, Clinic, or Other [...] pleural effusion Coronary artery disease invo lving [place] coronary artery of [place] heart with angina pectoris 03/25/2023 Acquired absence of other sp ecified parts of digestive tract 11/10/2022 Arthrodesis status 11/10/2022 Complication of anesthesia 11/10/2022 Compression fracture of T12 vertebra 11/10/2022 Discitis 11/10/2022 Gout 11/10/2022 History of lumbar fusion 11/10/2022 Inflammation of sacroiliac joint 11/10/2022 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 Increased risk for Hereditary Cardiomyopathy. Please click the link below for a brief summary of current clinical management recommendations for Hypertrophic Cardiomyopathy. MYH7 Coronary artery disease invo lving [place] coronary artery of [place] heart without angina pectoris 09/26/2021 MISHRA (dyspnea [...] mRNA, LNP-s, No Pre serve, 2-Dose Series (stickK) 10/29/2021,02/07/2021,01/03/2021 PPD 04/27/2010, 0,04/08/2010,04/08,10/25/2006,10/25/2006 Pneumococcal Polysaccharide PPV23 [...] No 01/09/2018 documented as of this encounter Plan of Treatment Upcoming Encounters Date Type Department Care Team (Late st Contact Info) Description 07/17/2024 1:45 PM EDT Pharmacy Pharmacy Hematology Oncology [facility] [address] [place] [address] [facility] Hem/Onc [address] [place] [address] 10/08/2024 10:20 AM EST Office Visit Pulmonary Medicine, [address] [place] [address] Rico Wall MD [address] [place] [address] Health Maintenance Due Date Last Done Comments [...] Directives occurred with: Not Discussed Care Teams Training Administrator Relationship Specialty Start Date End Date Cj Rico III, MD [address] [facility] [address] PCP - General Family Medicine 05/19/14 documented as of this encounter
--- OUTSIDE RECORDS SUMMARY | 2024-07-27 08:36 | External Medical Summary | Summary of Care ---
Author Name Unknown Organization [facility] Address [address] [place] [address] Phone [phone] Care Team Providers Care Application Support Consultant Name Role Phone Trisha DUTTA MD, Cj Cote Primary Care Provider [phone] Reason for Visit * Reason Comments Medication Management Encounter Details Date Type Department Care Team (Late st Contact Info) Description 07/10/2024 1:15 PM EDT Pharmacy Pharmacy Hematology Oncology [facility] [address] [place] [address] [facility], [facility] Hem/Onc [address] [place] [address] Primary malignant neoplasm of lung, unspecified laterality (HCC)* Allergies Active Allergy Reactions Criticality Noted Date Comments Losartan Potassium Edema face/lips/tongue High 06/30 Fentanyl Itching 08/30/2016 Oxycodone 06/07/2023 Itching all over Penicillins Edema face/lips/tongue High 11/15/2001 Sulfa Antibiotics Other (Please comment) 2000 Urinary frequency Topiramate 04/09/2023 Other reaction(s): Blurry Vision Tramadol Other (Please comment) 01/01/2018 hallucinations documented as of this encounter (statuses as of 07/11/2024) Medications Medication Sig Dispensed Refills Start Date [...] aroxysmal atrial fibrillation (HCC),Coronary artery disease involving [place] coronary artery of [place] heart without angina pectoris,Dyslipidemi a, goal LDL [...] every night at bedtime. Active Saline Nasal [place] 0.65 % Nasal Solution ([place]) Administer 1 [place] into nostril as needed for Congestion. Active [...] mouth at bedtime as needed for Sleep. [employer] brand 30 Tablet 3 04/14/2024 Active Lisinopril [...] Breath. 360 mL 07/08/2024 4 Active Ipratropium [place] 0.02 % Inhalation Solution (Atrovent) Inhale 2.5 [...] as of this encounter (statuses as of 07/11/2024) Active Problems Problem Noted Date Diagnosed Date COPD, group B, by GOLD 2017 classification 07/07 Overview: Per COPD GOLD Classification Primary lung cancer 06/17/2024 Overview: 3 cm left apex lesion with extensive lymph nodes, small pleural effusion Coronary artery disease invo lving [place] coronary artery of [place] heart with angina pectoris 03/25/2023 Acquired absence of other sp ecified parts of digestive tract 11/10/2022 Arthrodesis status 11/10/2022 Complication of anesthesia 11/10/2022 Compression fracture of T12 vertebra 11/10/2022 Discitis 11/10/2022 Gout 11/10/2022 History of lumbar fusion 11/10/2022 Inflammation of sacroiliac joint 11/10/2022 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 Increased risk for Hereditary Cardiomyopathy. Please click the link below for a brief summary of current clinical management recommendations for Hypertrophic Cardiomyopathy. MYH7 Coronary artery disease invo lving [place] coronary artery of [place] heart without angina pectoris 09/26/2021 MISHRA (dyspnea [...] as of this encounter (statuses as of 07/11/2024) Resolved Problems Problem Noted Date Diagnosed Date [...] as of this encounter (statuses as of 07/11/2024) Immunizations Name Administration Dates Next Due COVID-19 [...] as of this encounter Progress Notes * Linda Browne, resource forester - 07/10/2024 4:03 PM EDT NEW REFERRAL TO ORAL CHEMO CLINIC/MEDICATION RECONCILIATION NOTE Florecita Quintana [id number] Patient Phone Numbers Communication: Spoke to: Patient Treatment: Medication: Osimertinib (Tagrisso) Indication/Staging/Diagnosis Code: NSCLC, EGFR19 deletion / Stage IV / C34.12 Dose: 80mg daily Administration: +/- food Start Date: Primary Phone Banker/Oncologist: Dr. Hawk Simmons Provider has consented patient: Yes Patient was introduced to Oral Chemotherapy Clinic: OCC is a free service for patients receiving oral chemo therapy. We are Pharmacists & Pharmacy Technicians, who are a part of hematology & oncology care across the [facility] system offering telephone based appointments from the comfort of your own home. Pharmacists are available Sunday-Sunday from 8am - 4:30pm. After 4:30pm, non- urgent messages can be left on the pharmacist voicemail, and urgent calls/questions/concerns should be directed to their oncologist office directly. In case of an emergency, patient is aware to call 911 or travel to nearest emergency department. Communicated to patient: Pharmacists will provide education about your medication, manage oral chemotherapy side effects & review labs. All information will be shared & available to your oncologist. Explained to patient: once they decide on a treatment with their Oncologist, a Pharmacist will review the treatment plan to ensure correct dosing, review labs & medications to prevent any interactions. Medication authorization is submitted to your insurance. Once approved, your Rx will be sent to the Pharmacy determined by your insurance plan. Specialty Pharmacy will contact you to arrange delivery & discuss co-payment and any assistance options, if required. A Pharmacist will contact you to provide medication education, follow up periodically to review lab results & to assess/manage side effects. Patient was reassured the process to obtain medication can take several days-weeks. Patient was informed that hepatitis B screening must be completed prior to initiation of treatment.Completed Patient has given verbal consent that staff from the Oral Chemotherapy Clinic can speak to Other: Daughters: Tamiko Quintana & Mariluz Quintana regarding their treatment. Patient has given verbal consent that staff from the Oral Chemotherapy Clinic can leave a voicemailwith treatment-related information: Yes This information can be left on Cell Performed medication reconciliation with patient; pharmacist will be in touch if there are any druginteractions with oral chemo. Patient voiced understanding on all accounts. MELVA Sharma Tech Agency Recruiter Hematology Oncology Oral Chemotherapy Clinic Medication Therapy Disease Management [facility] 07/10/24,4:12 PM Time Spent on Encounter: 6 - 10 minutes Encounter Group: Hematology Encounter Interventions Item Category: Oral Chemotherapy Capecitabine Problem/Rationale: Safety: Needs additional monitoring - Medication Requires monitoring Pharmacist Intervention(s): Medication reconciliation Magnitude of Intervention: Monitoring with no interventions (Level 0) documented in this encounter Plan of Treatment Upcoming Encounters Date Type Department Care Team (Late st Contact Info) Description 07/14/2024 1:30 PM EDT Pharmacy Pharmacy Hematology Oncology [facility] [place] [address] [place] [address] [facility], [facility] Hem/Onc [address] [place] [address] 07/15/2024 8:30 AM EDT Cardiac Studies [facility] [address] [facility] [address] 10/08/2024 10:20 AM EST Office Visit Pulmonary Medicine, [facility] [address] [facility] [place] [address] Rico Wall MD [address] [place] [address] Health Maintenance Due Date Last Done Comments [...] Directives occurred with: Not Discussed Care Teams Application Support Consultant Relationship Specialty Start Date End Date Cj Rico III, MD [address] [place] [address] PCP - General Family Medicine 05/19/14 documented as of this encounter
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
--- OUTSIDE RECORDS SUMMARY | 2024-07-27 08:37 | External Medical Summary | Summary of Care ---
Author Name Unknown Organization [facility] Address [address] [place] [address] Phone [phone] Care Team Providers Care Workplace Relations Adviser Name Role Phone Trisha DUTTA MD, Cj Cote Primary Care Provider [phone] Encounter Details Date Type Department Care Team (Late st Contact Info) Description 07/09/2024 Telephone Hematology/Oncology [facility] [place] [address] [place] [address] Cortez Simmons MD [address] [place] [address] Allergies Active Allergy Reactions Criticality Noted Date [...] Paroxysmal atrial fibrillation (HCC),Coronary artery disease involving [place] coronary artery of [place] heart without angina pectoris,Dyslipidem ia, goal LDL [...] every night at bedtime. Active Saline Nasal [place] 0.65 % Nasal Solution ([place]) Administer 1 [place] into nostril as needed for Congestion. Active [...] mouth at bedtime as needed for Sleep. [place] brand 30 Tablet 3 04/14/2024 Active Lisinopril [...] Active Benzonatate 100 MG Oral Capsule (Tessalon Perles)Indications: [...] Breath. 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 Increased risk for Hereditary Cardiomyopathy. Please click the link below for a brief summary of current clinical management recommendations for Hypertrophic Cardiomyopathy. MYH7 Coronary artery disease invo lving [place] coronary artery of [place] heart without angina pectoris 09/26/2021 MISHRA (dyspnea [...] mRNA, LNP-s, No Pre serve, 2-Dose Series ([employer]) 10/29/2021,02/07/2021,01/03/2021 PPD 04/27/2010, 0,04/08/2010,04/08,10/25/2006,10/25/2006 Pneumococcal Polysaccharide PPV23 [...] Telephone Encounter - Bebe Dean RN - 07/09/2024 9:13 AM EDT See other encounter. * Telephone Encounter - Tamiko Rodriguez OSA - 07/09/2024 8:19 AM EDT Talked to pt about her echo she is scheduled for 07/15 at 8:30 pt is aware Pt wanted to see if someone could maybe put a med in for her she said she was up all night coughingshe said she might have bronchitis She was up for 5 hrs last night coughing and isnt sure what else to do to get some relief Pt stated that she did cough up some yellow mucus this morning Pt also wanted to inform you about the WBC count and why its been high the last 2 times " maybe this is why" Nursing please advise documented in this encounter Plan of Treatment Upcoming Encounters Date Type Department Care Team (Late st Contact Info) Description 07/09/2024 1:00 PM EDT Pharmacy Pharmacy Hematology Oncology [facility] [address] [place] [address] [facility] Hem/Onc [address] [place] [address] 10/08/2024 10:20 AM EST Office Visit Pulmonary Medicine, [facility] [address] [facility] [place] [address] Rico Wall MD [address] [place] [id number] Health Maintenance Due Date Last Done Comments [...] Directives occurred with: Not Discussed Care Teams Workplace Relations Adviser Relationship Specialty Start Date End Date Cj Rico III, MD [address] [facility] [place] [address] PCP - General Family Medicine 05/19/14 documented as of this encounter
--- OUTSIDE RECORDS SUMMARY | 2024-07-27 08:37 | External Medical Summary | Summary of Care ---
Author Name Unknown Organization [facility] Address [address] [place] [address] Phone [phone] Care Team Providers Care Radio Board Operator Announcer Name Role Phone Trisha DUTTA MD, Cj Cote Primary Care Provider [phone] Reason for Visit * Reason Onset Date Comments Test Results Imaging Study 07/10/2024 [place] MRI Encounter Details Date Type Department Care Team (Late st Contact Info) Description 07/10/2024 Telephone Hematology/Oncology [facility] Jenn [place] [address] [place] [address] Cortez Simmons MD [address] [facility] [address] Test Results Imaging Study ([place] MRI) Allergies Active Allergy Reactions Criticality Noted Date Comments Losartan Potassium Edema face/lips/tongue High 06/30 Fentanyl Itching 08/30/2016 Oxycodone 06/07/2023 Itching all over Penicillins Edema face/lips/tongue High 11/15/2001 Sulfa Antibiotics Other (Please comment) 2000 Urinary frequency Topiramate 04/09/2023 Other reaction(s): Blurry Vision Tramadol Other (Please comment) 01/01/2018 hallucinations documented as of this encounter (statuses as of 07/10/2024) Medications Medication Sig Dispensed Refills Start Date [...] aroxysmal atrial fibrillation (HCC),Coronary artery disease involving [place] coronary artery of eastern [place] heart without angina pectoris,Dyslipidemi a, goal LDL [...] every night at bedtime. Active Saline Nasal [place] 0.65 % Nasal Solution ([place]) Administer 1 [place] into nostril as needed for Congestion. Active [...] mouth at bedtime as needed for Sleep. [employer] brand 30 Tablet 3 04/14/2024 Active Lisinopril [...] Breath. 360 mL 07/08/2024 4 Active Ipratropium [place] 0.02 % Inhalation Solution (Atrovent) Inhale 2.5 [...] as of this encounter (statuses as of 07/10/2024) Active Problems Problem Noted Date Diagnosed Date COPD, group B, by GOLD 2017 classification 07/07 Overview: Per COPD GOLD Classification Primary lung cancer 06/17/2024 Overview: 3 cm left apex lesion with extensive lymph nodes, small pleural effusion Coronary artery disease invo lving [place] coronary artery of [place] heart with angina pectoris 03/25/2023 Acquired absence of other sp ecified parts of digestive tract 11/10/2022 Arthrodesis status 11/10/2022 Complication of anesthesia 11/10/2022 Compression fracture of T12 vertebra 11/10/2022 Discitis 11/10/2022 Gout 11/10/2022 History of lumbar fusion 11/10/2022 Inflammation of sacroiliac joint 11/10/2022 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 Increased risk for Hereditary Cardiomyopathy. Please click the link below for a brief summary of current clinical management recommendations for Hypertrophic Cardiomyopathy. MYH7 Coronary artery disease invo lving [place] coronary artery of eastern [place] heart without angina pectoris 09/26/2021 MISHRA (dyspnea [...] as of this encounter (statuses as of 07/10/2024) Resolved Problems Problem Noted Date Diagnosed Date [...] as of this encounter (statuses as of 07/10/2024) Immunizations Name Administration Dates Next Due COVID-19 [...] encounter Miscellaneous Notes * Telephone Encounter - Yvonne Elliott LPN - 07/10/2024 12:24 PM EDT My G sent. * Telephone Encounter - Yvonne Elliott LPN - 07/10/2024 12:21 PM EDT ----- Message from Cortez Simmons MD sent at 07/10/2024 6:51 AM EDT ----- Brain MRI done on 07/08/2024: - No evidence of metastatic disease noted in the brain. documented in this encounter Plan of Treatment Upcoming Encounters Date Type Department Care Team (Late st Contact Info) Description 07/10/2024 1:15 PM EDT Pharmacy Pharmacy Hematology Oncology [address] [address] [facility], [facility] Hem/Onc [facility] [place] [address] 07/14/2024 1:30 PM EDT Pharmacy Pharmacy Hematology Oncology [address] [address] [facility] Hem/Onc [address] [place] [address] 07/15/2024 8:30 AM EDT Cardiac Studies Cardiac Studies, [facility] [address] [facility] [place] [address] 10/08/2024 10:20 AM EST Office Visit Pulmonary Medicine, [facility] [address] [facility] [place] [address] Rico Wall MD [address] [facility] [place] [address] Health Maintenance Due Date Last Done Comments [...] Directives occurred with: Not Discussed Care Teams Radio Board Operator Announcer Relationship Specialty Start Date End Date Cj Rico III, MD [address] [place] [address] PCP - General Family Medicine 05/19/14 documented as of this encounter
--- OUTSIDE RECORDS SUMMARY | 2024-07-27 08:37 | External Medical Summary | Summary of Care ---
Author Name Unknown Organization [facility] Address [address] [place] [address] Phone [phone] Care Team Providers Care Dairy Cattle Farm Manager Name Role Phone Trisha DUTTA MD, Cj Cote Primary Care Provider [phone] Reason for Referral * Precert (Diagnostic Medical) (Within 10 days (routine)) - Authorized Specialty Diagnoses / Procedures Referred By Contac t Referred To Contact Cardiac Studies Diagnoses Malignant neoplasm of upper lobe of left lung (HCC) Metastasis to mediastinal lymph node (HCC) Procedures ECHO, COMPLETE (2D), TRANS-THORACIC Cortez Simmons MD 200 [facility] [place] [address] Referral ID Status Reason Start Date Expiration Date V isits Requested Visits Authorized [id number] Authorized Precert 07/08/2024 999 999 Reason for Visit * Reason Onset Date Comments Precert Future 07/08/2024 tagris Encounter Details Date Type Department Care Team (Late st Contact Info) Description 07/08/2024 Telephone Hematology/Oncology Treatment, [place] [address] [place] [id number] Cortez Simmons MD [facility] [address] Precert Future (tagrisso) Allergies Active Allergy Reactions [...] Paroxysmal atrial fibrillation (HCC),Coronary artery disease involving [place] coronary artery of [place] heart without angina pectoris,Dyslipidem ia, goal LDL [...] every night at bedtime. Active Saline Nasal [place] 0.65 % Nasal Solution ([place]) Administer 1 [place] into nostril as needed for Congestion. Active [...] mouth at bedtime as needed for Sleep. [place] brand 30 Tablet 3 04/14/2024 Active Lisinopril [...] Breath. 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 Increased risk for Hereditary Cardiomyopathy. Please click the link below for a brief summary of current clinical management recommendations for Hypertrophic Cardiomyopathy. MYH7 Coronary artery disease invo lving [place] coronary artery of [place] tribes heart without angina pectoris 09/26/2021 MISHRA (dyspnea [...] Order received for tagrisso. Forwarded order to [facility]. Patient needs to come to office [...] 1:30 PM EDT Pharmacy Pharmacy Hematology Oncology [address] [address] [facility], [facility] Hem/Onc [facility] [place] [address] 07/15/2024 8:30 AM EDT Cardiac Studies [address] Studies, [address] [place] [address] 10/08/2024 10:20 AM EST Office Visit Pulmonary Medicine, [address] [place] [address] Rico Wall MD [address] [facility] [place] [address] Scheduled Orders Name Type Priority Associated Diagnoses [...] - 20 mg/dL 07/08/2024 4:29 PM EDT [address] Creatinine 0.7 0.5 - 1.0 mg/dL 07/08/2024 4:29 PM EDT [address] Estimated Glomerular Filtration Rate >90 >=60 mL/min 07/08/2024 4:29 PM EDT [facility] 56 Comment:eGFR is calculated b ased on the CKD-EPI 2020 equation. Sodium 137 135 - 146 mmol/L 07/08/2024 4:29 PM EDT [address] Potassium 4.3 3.5 - 5.1 mmol/L 07/08/2024 4:29 PM EDT [address] Chloride 103 98 - 107 mmol/L 07/08/2024 4:29 PM EDT [address] CO2 23 22 - 32 mmol/L 07/08/2024 4:29 PM EDT [address] Anion Gap 11 7 - 15 mmol/L 07/08/2024 4:29 PM EDT [address] Glucose 99 70 - 120 mg/dL 07/08/2024 4:29 PM T [address] Albumin 4.1 3.8 - 5.0 g/dL 07/08/2024 4:29 PM EDT [facility] 56 AST 14 10 - 35 U/L 07/08/2024 4:29 PM EDT [facility] 56 Alkaline Phosphatase 68 35 - 130 U/L 07/08/2024 4:29 PM T [address] Bilirubin, Total 0.6 <=1.2 mg/dL 07/08/2024 4:29 PM EDT [facility] 56 Calcium 9.2 8.4 - 10.2 mg/dL 07/08/2024 4:29 PM T [facility] 56 Protein 6.3 6.0 - 8.3 g/dL 07/08/2024 4:29 PM EDT [facility] 56 ALT 22 10 - 35 U/L 07/08/2024 4:29 PM T [facility] 5602 Blood Venous blood specimen / Unknown Venipuncture / Unknown 07/08/2024 4:05 PM EDT 07/08/2024 4:05 PM EDT Cortez Simmons MD LAB BLOOD ORDERABLES LABORATORY [place] [address] [place] [address] * HEPATITIS B CORE ANTIBODIES IGG AND IGM (07/08/2024 4:05 PM EDT) Hepatitis B Core Antibodies IgG and IgM Negative Negative 07/09/2024 3:15 AM EDT [facility] Blood Venous blood specimen / Unknown Venipuncture / Unknown 07/08/2024 4:05 PM EDT 07/08/2024 4:05 PM EDT Cortez Simmons MD LAB BLOOD ORDERABLES Performing Organization Address City/[facility]/ZIP Co de Phone Number LAB[facility]ATORY [facility] [address] [place] [address] * HEPATITIS B SURFACE ANTIGEN (07/08/2024 4:05 PM EDT) Hepatitis B Surface Antigen Negative Negative 07/09/2024 3:15 AM EDT [facility]ORY [facility] Blood Venous blood specimen / Unknown Venipuncture / Unknown 07/08/2024 4:05 PM EDT 07/08/2024 4:05 PM EDT Cortez Simmons MD LAB BLOOD ORDERABLES Performing Organization Address City/[facility]/ZIP Co de Phone Number LAB[facility] [address] [place] [address] * HEPATITIS B SURFACE ANTIBODY (07/08/2024 4:05 PM EDT) Hepatitis B Surface Antibody, Quantitative <3.5 mIU/mL 07/09/2024 3:15 AM EDT LAB[facility]ATORY [facility] Hepatitis B Surface Antibody, Qualitative Negative 07/09/2024 3:15 AM EDT LAB[facility]ORY [facility] Hepatitis B Surface Antibody, Interpretation NOT immune to Hepatitis B Virus 07/09/2024 3:15 AM EDT LABORATORY [facility] Comment: POSITIVE: >=11.5 mIU/mL INDETERMINATE: 8.5-<11.5 mIU/mL NEGATIVE: <8.5 mIU/mL Blood Venous blood specimen / Unknown Venipuncture / Unknown 07/08/2024 4:05 PM EDT 07/08/2024 4:05 PM EDT Cortez Simmons MD LAB BLOOD ORDERABLES Performing Organization Address [facility] Co de Phone Number LABORATORY [facility] [address] [place] [address] * EKG (07/08/2024 3:50 PM EDT) 07/08/2024 [...] leads Ventricular Rate: 69 Atrial Rate: 69 VA Interval: 124 QRS Duration: 72 QT/QTc: 416/445 ms P-R-T [place]: 56 : 27 : 27 degrees Cortez Simmons MD EKG Performing Organization Address [facility] Co de Phone Number [facility] CARDIOLOGY documented in this encounter Visit Diagnoses [...] Directives occurred with: Not Discussed Care Teams Dairy Cattle Farm Manager Relationship Specialty Start Date End Date Cj Rico III, MD 200 [facility] [place] [address] PCP - General Family Medicine 05/19/14 documented as of this encounter
--- OUTSIDE RECORDS SUMMARY | 2024-07-27 08:37 | External Medical Summary | Summary of Care ---
Author Name Unknown Organization [facility] Address [address] [place] [address] Phone [phone] Care Team Providers Care Ticket Puller Name Role Phone Trisha DUTTA MD, Cj Cote Primary Care Provider [phone] Encounter Details Date Type Department Care Team (Late st Contact Info) Description 07/09/2024 Telephone Hematology/Oncology [facility] [place] [address] [place] [address] Cortez Simmons MD [address] [place] [address] Allergies Active Allergy Reactions Criticality Noted Date [...] Paroxysmal atrial fibrillation (HCC),Coronary artery disease involving [place] coronary artery of sun'aq heart without angina pectoris,Dyslipidem ia, goal LDL [...] every night at bedtime. Active Saline Nasal [place] 0.65 % Nasal Solution ([place]) Administer 1 [place] into nostril as needed for Congestion. Active [...] mouth at bedtime as needed for Sleep. [place] brand 30 Tablet 3 04/14/2024 Active Lisinopril [...] Breath. 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 Increased risk for Hereditary Cardiomyopathy. Please click the link below for a brief summary of current clinical management recommendations for Hypertrophic Cardiomyopathy. MYH7 Coronary artery disease invo lving sun'aq coronary artery of sun'aq heart without angina pectoris 09/26/2021 MISHRA (dyspnea [...] mRNA, LNP-s, No Pre serve, 2-Dose Series (HCI) 10/29/2021,02/07/2021,01/03/2021 PPD 04/27/2010, 0,04/08/2010,04/08,10/25/2006,10/25/2006 Pneumococcal Polysaccharide PPV23 [...] 1:15 PM EDT Pharmacy Pharmacy Hematology Oncology [address] [address] [facility], [facility] Hem/Onc [address] [place] [address] 07/14/2024 1:30 PM EDT Pharmacy Pharmacy Hematology Oncology [place] [address] [place] [address] [facility], [facility] Hem/Onc [address] [place] [address] 07/15/2024 8:30 AM EDT Cardiac Studies Cardiac Studies, [facility] [address] [facility] [place] [address] 10/08/2024 10:20 AM EST Office Visit Pulmonary Medicine, [facility] [address] [place] [address] Rico Wall MD [address] [facility] [place] [address] Health Maintenance Due Date Last Done Comments [...] Directives occurred with: Not Discussed Care Teams Ticket Puller Relationship Specialty Start Date End Date Cj Rico III, MD [address] [place], [place] [address] PCP - General Family Medicine 05/19/14 documented as of this encounter
--- OUTSIDE RECORDS SUMMARY | 2024-07-27 08:37 | External Medical Summary | Summary of Care ---
Author Name Unknown Organization [facility] Address [address] [place] [address] Phone [phone] Care Team Providers Care Relaster Name Role Phone Trisha DUTTA MD, Cj Cote Primary Care Provider [phone] Reason for Visit * Reason Onset Date Comments Test Results Imaging Study 07/10/2024 [place] MRI Encounter Details Date Type Department Care Team (Late st Contact Info) Description 07/10/2024 Telephone Hematology/Oncology [facility] Jenn [place] [address] [place] [address] Cortez Simmons MD [address] [facility] [address] Test Results Imaging Study ([place] MRI) Allergies [...] aroxysmal atrial fibrillation (HCC),Coronary artery disease involving [place] coronary artery of [place] heart without angina pectoris,Dyslipidemi a, goal LDL [...] every night at bedtime. Active Saline Nasal [place] 0.65 % Nasal Solution ([place]) Administer 1 [place] into nostril as needed for Congestion. Active [...] mouth at bedtime as needed for Sleep. [employer] brand 30 Tablet 3 04/14/2024 Active Lisinopril [...] Breath. 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 Increased risk for Hereditary Cardiomyopathy. Please click the link below for a brief summary of current clinical management recommendations for Hypertrophic Cardiomyopathy. MYH7 Coronary artery disease invo lving [place] coronary artery of [place] heart without angina pectoris 09/26/2021 MISHRA (dyspnea [...] 1:30 PM EDT Pharmacy Pharmacy Hematology Oncology [facility] [address] [facility] [place] [address] [facility], [facility] Hem/Onc [address] [place] [facility] [place] [address] 07/15/2024 8:30 AM EDT Cardiac Studies Cardiac Studies, [facility] [address] [address] 10/08/2024 10:20 AM EST Office Visit Pulmonary Medicine, [facility] [address] [place] [address] Rico Wall MD [address] [place] [address] Health Maintenance Due Date Last Done Comments [...] Directives occurred with: Not Discussed Care Teams Relaster Relationship Specialty Start Date End Date Cj Rico III, MD [address] [place] [address] PCP - General Family Medicine 05/19/14 documented as of this encounter
--- OUTSIDE RECORDS SUMMARY | 2024-07-27 08:37 | External Medical Summary | Summary of Care ---
Author Name Unknown Organization [facility] Address [address] [place] [address] Phone [phone] Care Team Providers Care Soil Checker Name Role Phone Trisha DUTTA MD, Cj Cote Primary Care Provider [phone] Encounter Details Date Type Department Care Team (Late st Contact Info) Description 07/09/2024 Orders Only Hematology/Oncology [facility] Jenn [place] [address] [facility] [place] [address] Cortez Simmons MD 200 [facility] [address] Allergies Active Allergy Reactions Criticality Noted Date [...] aroxysmal atrial fibrillation (HCC),Coronary artery disease involving [place] coronary artery of [place] heart without angina pectoris,Dyslipidemi a, goal LDL [...] every night at bedtime. Active Saline Nasal [place] 0.65 % Nasal Solution ([place]) Administer 1 [place] into nostril as needed for Congestion. Active [...] mouth at bedtime as needed for Sleep. [place] brand 30 Tablet 3 04/14/2024 Active Lisinopril [...] Breath. 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 Increased risk for Hereditary Cardiomyopathy. Please click the link below for a brief summary of current clinical management recommendations for Hypertrophic Cardiomyopathy. MYH7 Coronary artery disease invo lving [place] coronary artery of [place] heart without angina pectoris 09/26/2021 MISHRA [...] mRNA, LNP-s, No Pre serve, 2-Dose Series ([employer]) 10/29/2021,02/07/2021,01/03/2021 PPD 04/27/2010, 0,04/08/2010,04/08,10/25/2006,10/25/2006 Pneumococcal Polysaccharide PPV23 [...] 1:15 PM EDT Pharmacy Pharmacy Hematology Oncology [place] [address] [place] [address] [facility], [facility] Hem/Onc [facility] [place] [address] 07/14/2024 1:30 PM EDT Pharmacy Pharmacy Hematology Oncology [address] [address] [facility], [facility] Hem/Onc [facility] [place] [address] 07/15/2024 8:30 AM EDT Cardiac Studies Cardiac Studies, [facility] [address] [facility] [place] [address] 10/08/2024 10:20 AM EST Office Visit Pulmonary Medicine, [address] [place] [address] Rico Wall MD [address] [place] [facility] [place] [address] Health Maintenance Due Date Last Done Comments Alpha-1 Antitrypsin 1971 Cologuard 1998 Fecal Occult Blood Test 1998 Sigmoidoscopy 1998 Zoster Vaccines (1 of 2) 2003 Pneumococcal Vaccine: 65+ Years (2 of 2 - PCV) 10/21/2017 10/21/2016 Adult Wellness Visit 2019 DTaP,Tdap,and Td Vaccines (2 - Td or Tdap) 06/09/2019 06/09/2009 COVID-19 Vaccine (24 season) 2023 10/29/2021, 02/07/2021, 01/03/2021 Depression Screening [...] Directives occurred with: Not Discussed Care Teams Soil Checker Relationship Specialty Start Date End Date Cj Rico III, MD 200 [facility] [address] PCP - General Family Medicine 05/19/14 documented as of this encounter
--- OUTSIDE RECORDS SUMMARY | 2024-07-27 08:37 | External Medical Summary | Summary of Care ---
Author Name Unknown Organization [facility] Address [address] [place] [address] Phone [phone] Care Team Providers Care Accountant Manager Name Role Phone Trisha DUTTA MD, Cj Cote Primary Care Provider [phone] Encounter Details Date Type Department Care Team (Late st Contact Info) Description 07/09/2024 Telephone Hematology/Oncology [facility] [place] [address] [place] [id number] Cortez Simmons MD [address] [place] [id number] Allergies Active Allergy Reactions Criticality Noted Date [...] Paroxysmal atrial fibrillation (HCC),Coronary artery disease involving [place] coronary artery of [place] heart without angina pectoris,Dyslipidem ia, goal LDL [...] every night at bedtime. Active Saline Nasal [place] 0.65 % Nasal Solution ([place]) Administer 1 [place] into nostril as needed for Congestion. Active [...] mouth at bedtime as needed for Sleep. [place] brand 30 Tablet 3 04/14/2024 Active Lisinopril [...] Breath. 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 Increased risk for Hereditary Cardiomyopathy. Please click the link below for a brief summary of current clinical management recommendations for Hypertrophic Cardiomyopathy. MYH7 Coronary artery disease invo lving [place] coronary artery of [place] heart without angina pectoris 09/26/2021 MISHRA (dyspnea [...] mRNA, LNP-s, No Pre serve, 2-Dose Series ([employer]) 10/29/2021,02/07/2021,01/03/2021 PPD 04/27/2010, 0,04/08/2010,04/08,10/25/2006,10/25/2006 Pneumococcal Polysaccharide PPV23 [...] encounter Miscellaneous Notes * Telephone Encounter - Tamiko Rodriguez OSA [...] 1:00 PM EDT Pharmacy Pharmacy Hematology Oncology [facility] [address] [place] [address] [facility] [place] Hem/Onc [address] [place] [address] 10/08/2024 10:20 AM EST Office Visit Pulmonary Medicine, [facility] [address] [facility] [place] [address] Rico Wall MD [address] [facility] [id number] Health Maintenance Due Date Last Done Comments [...] Directives occurred with: Not Discussed Care Teams Accountant Manager Relationship Specialty Start Date End Date Cj Rico III, MD [address] [facility] [place] [address] PCP - General Family Medicine 05/19/14 documented as of this encounter
--- OUTSIDE RECORDS SUMMARY | 2024-07-27 08:37 | External Medical Summary | Summary of Care ---
Author Name Unknown Organization [facility] Address [address] [place] [address] Phone [phone] Care Team Providers Care Ed Teacher Name Role Phone Trisha DUTTA MD, Cj Cote Primary Care Provider [phone] Reason for Visit * Reason Comments Follow Up Encounter Details Date Type Department Care Team (Late st Contact Info) Description 07/08/2024 2:15 PM EDT Office Visit Hematology/Oncology Christine Barajas [place] [address] [place] [address] Cortez Simmons MD [address] 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) Allergies Active Allergy Reactions Criticality Noted Date Comments Losartan Potassium Edema face/lips/tongue High 06/30 Fentanyl Itching 08/30/2016 Oxycodone 06/07/2023 Itching all over Penicillins Edema face/lips/tongue High 11/15/2001 Sulfa Antibiotics Other (Please comment) 2000 Urinary frequency Topiramate 04/09/2023 Other reaction(s): Blurry Vision Tramadol Other (Please comment) 01/01/2018 hallucinations documented as of this encounter (statuses as of 07/08/2024) Medications Medication Sig Dispensed Refills Start Date [...] Paroxysmal atrial fibrillation (HCC),Coronary artery disease involving enterprise coronary artery of enterprise heart without angina pectoris,Dyslipidem ia, goal LDL [...] every night at bedtime. Active Saline Nasal Blue Creek 0.65 % Nasal Solution (Jessamine) Administer 1 [place] into nostril as needed for Congestion. [...] Breath. 360 mL 07/08/2024 08/07/2024 Active Ipratropium Spicewood 0.02 % Inhalation Solution (Atrovent) Inhale 2.5 [...] as of this encounter (statuses as of 07/08/2024) Active Problems Problem Noted Date Diagnosed Date Primary lung cancer 06/17/2024 Overview: 3 cm left apex lesion with extensive lymph nodes, small pleural effusion Coronary artery disease invo lving enterprise coronary artery of enterprise heart with angina pectoris 03/25/2023 Acquired absence of other sp ecified parts of digestive tract 11/10/2022 Arthrodesis status 11/10/2022 Complication of anesthesia 11/10/2022 Compression fracture of T12 vertebra 11/10/2022 Discitis 11/10/2022 Gout 11/10/2022 History of lumbar fusion 11/10/2022 Inflammation of sacroiliac joint 11/10/2022 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 Increased risk for Hereditary Cardiomyopathy. Please click the link below for a brief summary of current clinical management recommendations for Hypertrophic Cardiomyopathy. MYH7 Coronary artery disease invo lving enterprise coronary artery of enterprise heart without angina pectoris 09/26/2021 MISHRA (dyspnea [...] as of this encounter (statuses as of 07/08/2024) Resolved Problems Problem Noted Date Diagnosed Date [...] as of this encounter (statuses as of 07/08/2024) Immunizations Name Administration Dates Next Due COVID-19 mRNA, LNP-s, No Pre serve, 2-Dose Series ([employer] Vision) 10/29/2021,02/07/2021,01/03/2021 PPD 04/27/2010, 0,04/08/2010,04/08,10/25/2006,10/25/2006 Pneumococcal Polysaccharide PPV23 [...] on file documented as of this encounter Last Filed Vital Signs Vital Sign Reading Time Taken Comments Blood Pressure 154/84 07/08/2024 3:01 PM EDT Pulse 69 07/08/2024 3:01 PM EDT Temperature 36.8 C (98.3 F) 07/08/2024 3:01 PM ED T Respiratory Rate - - Oxygen Saturation 93% 07/08/2024 3:01 PM EDT Inhaled Oxygen Concentration - - Weight 86.9 kg (191 lb 9.6 oz) 07/08/2024 3:01 P M EDT Height - - Body Mass Index 35.04 07/02/2024 12:17 PM EDT documented in this encounter Functional Status Functional Status Response [...] as of this encounter Progress Notes * Cortez Simmons MD - 07/08/2024 4:31 PM EDT Hematology/Oncology Outpatient Consult Note Gloria King [place] [address] [facility] [place] [address] FLORECITA HOLLAND MR # [id number] :1955 69-year-old female, Date of consultation:07/02/2024 DIAGNOSIS: Left upper lobe non-small cell lung cancer, 3 cm primary tumor, multiple pleural-based lung nodulesmeasuring up to 1.7 cm in the left upper and lower lobes. -contralateral mediastinal lymphadenopathy -T4 N3 M1a. Stage IV. PD-L1 40%. NGS checkup (06/24/2024). -TMB --> 3.8 which is low -MSI stable -EGFRexon 19 deletion, [id number],--> present - MET ampullary reaction present, copy number --> 6.3 - CDKN2B and 2A --> positive. - RBM10--> positive CURRENT TREATMENT: - Planning for Tagrisso 80 mg once a day. Will get EKG and echocardiogram DIAGNOSTIC WORKUP: She says that she had COVID-19 infection earlier in October 2023 had a chest x- ray was reported britney negative. She continued to have increasing coughing and shortness of breath. Longstanding history of smoking. Discontinued about 15 years back. Further workup as follows: CT chest on 06/06/2024: - Malignant appearing multiple nodules in the left lung with left hilar in Donte lymphadenopathy and small left pleural effusion. PET-CT scan done on 06/17/2024: - 3 x 2.4 x 2 cm left apex mass - Mediastinal lymphadenopathy (2.7 cm upper and lower right paratracheal lymph node, 4 x 2 cm prevascular lymph node - Multiple pleural based nodules measuring up to 1.7 cm throughout left upper and lower lobes. - Small left pleural effusion. EBUS, biopsy from the right paratracheal lymph node on 06/25/2024: - Non-small cell lung cancer compatible with adenocarcinoma. - PD-L1 40%. - ALK negative by IHC. -NGS checkup pending. OTHER IMPORTANT HISTORY: -significant DJD involving the spine. He takes hydromorphone on p.r.n. basis -she does complain of chronic headache because of the DJD in the cervical spine -she will PD, not on oxygen treatment -discontinue smoking habit about 15 years back -hypothyroidism. -hyperlipidemia -hypertension -GERD. -atrial fibrillation, S/P ablations. INTERVAL HISTORY: She has come the clinic for the follow-up, accompanied by her daughter in the office. She lives by herself, she does complain of some shortness of breath, chronic coughing, no hemoptysis, no fever, no nausea, no vomiting, some chronic headache, had DJD of the cervical spine, no new GIsymptoms, no bleeding from the sites, current weight around 191 lb. Ambulates well by herself, chronic back pain, she takes hydromorphone as needed. Past Medical History: Diagnosis Date Arthritis of carpometacarpal (CMC) joint of both thumbs 08/17/2020 Asthma Asthma, moderate persistent 12/12/2010 Atrial fibrillation and flutter 2010 COPD (chronic obstructive pulmonary disease) (HCC) Disease of spinal cord (HCC) SPINAL CORD, UNSPEC DISEASE UNSPECIFIED DISEASE Dyslipidemia, goal LDL below 70 Esophageal reflux 11/15/2009 Gastroparesis History of tobacco use 11/15/2009 HTN, goal below 140/90 06/06/2013 Hyperlipidemia Hypothyroidism 09/07/2008 IBS (irritable bowel syndrome) INFORMATION degenerative disc disease since age 48 INFORMATION hiatal hernia NONALLERGIC RHINITIS 11/15/2009 OTHER diverticulitis PE (pulmonary embolism) 2008 Primary lung cancer ([facility]) 06/17/2024 3 cm left apex lesion with extensive lymph nodes, small pleural effusion Pseudogout 08/17/2020 Sleep apnea, obstructive Statin intolerance 06/03/2018 Temporomandibular joint disorder 11/15/2009 Thoracic compression fracture ([facility]) 7-9 Throat pain 11/13/2006 x1 month feels like a lump Past Surgical History: Procedure Laterality Date BLADDER CATH INSERTION,TEMP INDWELL, SIMPLE Bilateral 12/26/2017 INSERTION TEMPORARY INDWELLING CATHETER SIMPLE performed by Silverio Correa MD at OR [facility] BREAST BIOPSY Right 08/06/2012 benign breast tissue with fat necrosis BRONCHOSCOPY, DIAGNOSTIC N/A 06/25/2024 BRONCHOSCOPY DIAGNOSTIC WITH OR WITHOUT WASHING performed by Joanne Chanel MD at ENDOSCOPY [facility] COLONOSCOPY, DIAGNOSTIC (RECTUM) 09/11/2016 hyperplastic polyps, diverticulosis, repeat 5 yrs/COLONOSCOPY FLEXIBLE PROXIMAL DIAGNOSTIC performed by Jann Roth DO at ENDOSCOPY [facility] COLONOSCOPY, DIAGNOSTIC (RECTUM) 02/08/2024 biopsies show adenomatous polyps/COLONOSCOPY FLEXIBLE PROXIMAL DIAGNOSTIC performed by Ronaldo Faith MD at ENDOSCOPY [facility] CYSTOSCOPY/INSERTION OF STENT Bilateral 12/26/2017 CYSTOURETHROSCOPY WITH INSERTION URETERAL STENT performed by Silverio Correa MD at OR [facility] CYSTOSCOPY/URETERAL CATHETER Bilateral 12/26/2017 CYSTOURETHROSCOPY WITH URETERAL CATHETER performed by Silverio Correa MD at OR [facility] EGD, FLEXIBLE, DIAGNOSTIC 09/08/2008 large amount of food in stomach EGD, FLEXIBLE, DIAGNOSTIC 09/11/2016 normal bx/ESOPHAGOGASTRODUODENOSCOPY (EGD), FLEXIBLE, TRANSORAL, DIAGNOSTIC performed by Jann Roth DO at ENDOSCOPY [facility] EGD, FLEXIBLE, DIAGNOSTIC 02/08/2024 mild patchy erythema duodenal bulb/ESOPHAGOGASTRODUODENOSCOPY (EGD), FLEXIBLE, TRANSORAL, DIAGNOSTIC performed by Ronaldo Faith MD at ENDOSCOPY [facility] EGD, FLEXIBLE, W/BIOPSY 09/10/2008 [address] path, f/u in clinic ELECTROPHYSIOLOGY EVAL, ATRIAL FIB, PULMONARY VEIN ISOL 07/07/2013 ELECTROPHYSIOLOGY EVAL, ATRIAL FIB, PULMONARY VEIN ISOL performed by Mt Ugarte MD at CARDIAC LABS [facility] FLUORO PYELOGRAM RETROGRADE Bilateral 12/26/2017 UROGRAHY, RETROGRADE, WITH OR WITHOUT KUB performed by Silverio Correa MD at OR [facility] INFORMATION ant cerv discectomy, fusion c4-5, c6-7 LAPAROSCOPIC PARTIAL COLECTOMY W/COLOPROCTOSTOMY N/A 12/26/2017 12/26/2017 LAPAROSCOPIC PARTIAL COLECTOMY WITH COLOPROCTOSTOMY performed by Navi Canela MD at OR [facility] LUMBAR HEMILAMINECTOMY LUMBAR SPINE FUSION W/BONE GRAFT MAMMOGRAM - BILATERAL 11/11/2004 birad code 2/o'schuster NECK SPINE FUSION (CERV, BELOW C2) PAP SCREEN 10/14/2003 satisfactory/pranav PAP SCREEN 10/28/2004 negative/[place] PAP SCREEN 08/16/2006 negative REDUCTION OF BREAST Bilateral 2003 at age 48 REMOVAL OF APPENDIX REMOVAL OF OVARY(S) at age 46 at the time of back surgery REMOVAL OF TONSILS, UNDER AGE 10 TOTAL ABD HYSTERECTOMY W/WO REMOVAL OF TUBE(S) 1985 age 30, DUB, ant colporrhaphy vaginally, went back and removed both ovaries, and tubes UPPER GI ENDOSCOPY/EXAM 12/01/2003 Upper GI Endoscopy,Exam US GUIDED BREAST ASPIRATION BILATERAL Right 08/06/2012 08/06/2012 apiratation right breast Gill's Pereira - f/u in 6 [facility] US GUIDED BREAST BIOPSY LEFT Left 04/27/2022 benign Current Outpatient Medications Medication Sig Dispense Refill TYLENOL EXTRA STRENGTH 500 MG PO TABS Take 2 Tablets by mouth every 6 hours as needed for Pain, Mild or Pain, Moderate. 0 VITAMIN D 1000 UNIT PO CAPS one capsule by mouth once a day Aspirin EC 81 MG Oral Tablet Delayed Release Take 1 Tab by mouth daily. Probiotic (Lactobacillus) Oral Capsule Take 1 Capsule by mouth daily. 30 Capsule 0 Nitroglycerin 0.4 MG Sublingual Tablet Sublingual (Nitrostat) place one tablet under the tongue every 5 minutes as needed for chest pain. take up to 3 doses in 15 minutes 25 Tablet 11 Budesonide 32 MCG/ACT Nasal Suspension Administer 2 Sprays into each nostril in the morning. 5 mL 3 Acyclovir 400 MG Oral Tablet (Zovirax) TAKE 1 TABLET BY MOUTH 3 TIMES A DAY FOR 5-7 DAYS NEEDED FOR COLD SORES (Patient not taking: Reported on 06/25/2024) 60 Tablet 11 BiPAP every night at bedtime. (Patient not taking: Reported on 06/25/2024) Saline Nasal Blue Creek 0.65 % Nasal Solution (Jessamine) Administer 1 [place] into nostril as needed for Congestion. Ondansetron HCl 4 MG Oral Tablet Take 1 Tablet by mouth every 6 hours. Use 1 hour prior to the bowel prepation 20 Tablet 0 Dicyclomine HCl 10 MG Oral Capsule (Bentyl) Take 1 Capsule by mouth 2 times a day as needed for Cramping or Diarrhea. 60 Capsule 2 Albuterol Sulfate (2.5 MG/3ML) 0.083% Inhalation Nebulization Solution (Proventil) use 1 nebulizer vial as needed for cough, shortness of breath, and wheeze 75 mL 0 Ipratropium-Albuterol 0.5-2.5 (3) MG/3ML Inhalation Solution (Duoneb) INHALE 1 VIAL VIA NEBULIZER EVERY 6 HOURS NEEDED FOR WHEEZING 90 mL 3 Praluent 75 MG/ML Subcutaneous Solution Auto-injector (Alirocumab) Inject 75 mg (1 pen) under the skin every 14 days. 6 mL 3 Levothyroxine Sodium 100 MCG Oral Tablet (Levoxyl) take one tablet by mouth daily at least 30 minutes before breakfast and other medications 90 Tablet 3 Triamcinolone Acetonide 55 MCG/ACT Nasal Aerosol (Nasacort Allergy 24HR) Administer into nostril daily as needed. Famotidine 20 MG Oral Tablet (Pepcid) TAKE 1 TABLET BY MOUTH TWICE DAILY 60 Tablet 5 Zolpidem Tartrate 10 MG Oral Tablet (Ambien) Take 1 Tablet by mouth at bedtime as needed for Sleep.[place] brand 30 Tablet 3 Lisinopril 20 MG Oral Tablet (Prinivil) Take 1 Tablet by mouth in the morning. 90 Tablet 2 HYDROmorphone HCl 2 MG Oral Tablet (Dilaudid) Take 1 Tablet by mouth every 6 hours as needed for Pain, Moderate or Pain, Severe. 30 Tablet 0 Albuterol Sulfate HFA 108 (90 Base) MCG/ACT Inhalation Aerosol Solution Inhale 2 Puffs by mouth every 4 hours as needed for Wheezing. 18 g 3 hydroCHLOROthiazide 12.5 MG Oral Capsule 1 tablet 2 days per week. (Patient not taking: Reported on06/25/2024) 28 Capsule 3 Ondansetron HCl 8 MG Oral Tablet (Zofran) TAKE 1 TABLET BY MOUTH EVERY 8 HOURS NEEDED FOR [id number] Tablet 0 Baclofen 20 MG Oral Tablet Take 1 Tablet by mouth in the morning and 1 Tablet at noon and 1 Tablet before bedtime. 30 Tablet 0 Full Kit Nebulizer Set Use with Nebulizer Medication EVERY SIX HOURS WHILE AWAKE as directed. Dx Code: J44.9 1 Each 3 Benzonatate 100 MG Oral Capsule (Tessalon Perles) Take 1 Capsule by mouth 3 times a day as needed for Cough. Do not cut, crush, or chew. 50 Capsule 1 LORazepam 0.5 MG Oral Tablet (Ativan) Take 1 Tablet by mouth every 6 hours as needed for Anxiety orOther (muscle spasm). 30 Tablet 1 Promethazine-Codeine 6.25-10 MG/5ML Oral Syrup (Phenergan and Codeine) Take 5 mL by mouth every 6 hours as needed for Cough. 250 mL 0 Albuterol Sulfate 0.63 MG/3ML Inhalation Nebulization Solution (Accuneb) Inhale 1 Vial via nebulizer every 6 hours as needed for Wheezing or Shortness of Breath. 360 mL 0 Ipratropium Spicewood 0.02 % Inhalation Solution (Atrovent) Inhale 2.5 mL via nebulizer every 6 hoursas needed for Wheezing. 300 mL 0 guaiFENesin-Codeine 100-10 MG/5ML Oral Solution (Robitussin AC) Take 5 mL by mouth 3 times a day asneeded for Cough. 180 mL 1 HYDROcodone Bit-Homatrop MBr 5-1.5 MG/5ML Oral Solution (Hycodan) Take 5 mL by mouth every 6 hours as needed for Cough. 120 mL 0 Current Facility-Administered Medications Medication Dose Route Frequency Provider Last Rate Last Admin Albuterol Sulfate (Proventil) (5 MG/ML) 0.5% *conc* inhalation solution 2.5 mg 2.5 mg Nebulizer PRN Albuterol Sulfate (Proventil) (2.5 MG/3ML) 0.083% inhalation solution 2.5 mg 2.5 mg Nebulizer PRN Family History Problem Relation Name Age of Onset Arthritis Mother Hypertension Mother Esophageal cancer Mother smoker Aortic aneurysm Mother Gastro-intestinal disorder Father Hepatitis Heart attack Father Thyroid Disorder Sister Allergies Daughter chronic rhinitis Asthma Daughter Stomach cancer Grandmother (Maternal) Heart Disorder Aunt (Maternal) Heart Disorder Aunt (Maternal) Bone cancer Aunt (Paternal) Brain cancer Uncle (Paternal) Breast Cancer No significant family history Social History Socioeconomic History Marital status: Spouse name: Enzo Number of children: 2 Years of education: Not on file Highest education level: Not on file Occupational History 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 Employer: [employer] Tobacco Use Smoking status: Former Current packs/day: 0.00 Average packs/day: 0.3 packs/day for 40.0 years (12.0 ttl pk-yrs) Types: Cigarettes Start date: 01/24/1970 Quit date: 01/24/2010 Years since quittin.4 Smokeless tobacco: Never Tobacco comments: no passive smoke exposures Vaping Use Vaping status: Never Used Substance and Sexual Activity Alcohol use: Yes Alcohol/week: 1.7 standard drinks of alcohol Types: 2 5 oz of wine per week Comment: 1 drink a day Drug use: No Sexual activity: Not Currently Partners: Male Other Topics Concern Service Not Asked Blood Transfusions Yes Comment: with back surgery Caffeine Concern Not Asked Occupational Exposure Not Asked Hobby Hazards Not Asked Sleep Concern Not Asked Stress Concern Not Asked Weight Concern Not Asked Special Diet Not Asked Back Care Not Asked Exercise Not Asked Bike Helmet Not Asked Seat Belt Yes Self-Exams Not Asked Social History Narrative [facility] [place] INFORMATION ENVIRONMENTAL HISTORY: Type of Home: Two Story Type of Heating System: Electric Air Conditioning: Yes Bedrooms, Kitchen and den Basement: Finished, Carpeted rooms, Dehumidifier, Water Problems and Mold, mildew Home have cockroaches: none Irritants in the home: Scented Candles Patient's bedroom location: Floor: basement Type of seda: Carpeting Beds: Number: 1 Type of beds: Mattress and Box spring Pillows: Number: 2 Type of pillows: Synthetic (hypoallergenic, polyester) Bedroom contains: Collectibles (knicknacks) Pets: 1 dog(s) [place] on a farm: No 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 no occupation related worsening of symptoms. Entered by: Roni Rodriguez MD 12/12/2010 Social Determinants of Health Financial Resource Strain: Not on file Food Insecurity: Not on file Transportation Needs: Not on file Social Connections: Unknown (05/13/2024) Social Connections How often do you feel lonely or isolated from those around you? (Adult - for ages 18 years and over): Not on file Housing Stability: Not on file On Exam: BP 154/84 (BP Site: Left Arm, BP Position: Sitting, BP Cuff Size: Large) | Pulse 69 | Temp 36.8 C(98.3 F) (Tympanic) | Wt 86.9 kg (191 lb 9.6 oz) | SpO2 93% | BMI 35.04 kg/m | BSA 1.95 m Constitutional: Patient is alert, cooperative and oriented x 3. Well built female, Patient is in noacute distress. HEENT: No icterus, no pallor, Throat and pharynx normal. Sinuses are non-tender. Neck: Supple and without lymphadenopathy or masses. No JVD. No Palpable supraclavicular lymph nodes. Lungs: Emphysematous chest noted. Cardiovascular: Normal heart sounds, no murmurs.Regular rate and rhythm. Abdomen: Soft, nontender, no hepatomegaly, no splenomegaly. Bowel sounds are normal. Neurological: No gross focal neurological deficit; walks with a normal gait. Extremities: No finger clubbing, No cyanosis. No leg edema. Skin:: No skin rash. SPINE: No spinal or paraspinal tenderness. LABS: Blood workup done on 05/19/2024: - WBC 9600, H&H of 16.5/49, platelet count of 352,000. - BUN/Creat: 18/0.7, calcium 10.1, normal LFT - ProBNP --> 87. Blood workup done on 07/08/2024: -BUN/Creat: 12/0.7, normal LFT -Calcium 9.2 -WBC 11,300, Hemoglobin and hematocrit -14.2/42.5, Platelet count of 069015. IMAGING: Brain MRI done today, result pending. ASSESSMENT AND PLAN: 69-year-old female, A case of left upper lobe non-small cell lung, adenocarcinoma, has multiple pleural-based nodules in the left upper and lower lobe, small left pleural effusion noted, overall appears to be left pleural involvement causing some local discomfort, also has contralateral mediastinal lymph cecil enlargement, overall T4, N3, M1a. PD-L1 40%. She does complain of chronic headache, has significant DJD, she takes hydromorphone for the symptomatic treatment including muscle relaxants therapy. Brain MRI done today, result pending. 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 I reviewed her blood workup done today, overall stable blood workup noted. Once we start treatment, I am planning to see her back in about 6 weeks. Planning for another follow-up PET-CT scan about 3 months after start of the osimertinib treatment We also talked about prognosis in her case. Overall prognosis remains good with the EGFR mutation. Dr. Cortez Simmons Hem/Onc (This note was completed using the dictation program Fluency Direct. As such, there may be misspellings word substitutions, or other variations that should not change the essence of the clinical content of this encounter note. If there is need for further clarification, please direct questions to the provider listed above.) documented in this encounter Nursing Notes * Gloria Alexandra MED ASSIST - 07/08/2024 3:03 PM EDT Patient identifed by name and birthdate Do you have any concerns about pain management for today's visit? Yes. Patient instructed to discuss pain concerns with provider during the visit today Living Will or Advance Directive for Health Care as noted on the problem list. [facility] is a way you can talk to your provider on line through e-mail. Would you like to sign up? I can activate it for you? ALREADY ACTIVE Filed Vitals: 07/08/24 1501 BP: 154/84 Pulse: 69 Temp: 36.8 C (98.3 F) TempSrc: Tympanic SpO2: 93% Weight: 86.9 kg (191 lb 9.6 oz) Patient was instructed to not get up on the exam table/exam chair until directed and assisted by their provider; patient is to remain seated in the chair/ wheelchair/ exam table/ exam chair for fall prevention and safety reasons. Patient is aware to have assistance to step down off exam table/exam chair with personnel. Patient voiced full comprehension of instructions. documented in this encounter Plan of Treatment Upcoming Encounters Date Type Department Care Team (Late st Contact Info) Description 07/09/2024 1:00 PM EDT Pharmacy Pharmacy Hematology Oncology [address] [address] [facility] Hem/Onc [facility] [place] [address] 10/08/2024 10:20 AM EST Office Visit Pulmonary Medicine, 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 [address] PCP - General Family Medicine 05/19/14 documented as of this encounter"
--- OUTSIDE RECORDS SUMMARY | 2024-07-27 08:38 | External Medical Summary | Summary of Care ---
Author Name Unknown Organization [facility] Address [address] [place] [address] Phone [phone] Care Team Providers Care Storm Sash Maker Name Role Phone Trisha DUTTA MD, Cj Cote Primary Care Provider [phone] Reason for Referral * Precert (Diagnostic Medical) (Within 10 days (routine)) - Authorized Specialty Diagnoses / Procedures Referred By Contac t Referred To Contact Cardiac Studies Diagnoses Malignant neoplasm of upper lobe of left lung (HCC) Metastasis to mediastinal lymph node (HCC) Procedures ECHO, COMPLETE (2D), TRANS-THORACIC Cortez Simmons MD 200 [facility] [place] [address] Referral ID Status Reason Start Date Expiration Date V isits Requested Visits Authorized [id number] Authorized Precert 07/08/2024 999 999 Reason for Visit * Reason Onset Date Comments Precert Future 07/08/2024 tagris Encounter Details Date Type Department Care Team (Late st Contact Info) Description 07/08/2024 Telephone Hematology/Oncology Treatment, [place] [address] [place] [phone] Cortez Simmons MD [facility] [address] Precert Future (tagrisso) Allergies Active Allergy Reactions [...] Paroxysmal atrial fibrillation (HCC),Coronary artery disease involving [place] coronary artery of [place] heart without angina pectoris,Dyslipidem ia, goal LDL [...] every night at bedtime. Active Saline Nasal [place] 0.65 % Nasal Solution ([place]) Administer 1 [place] into nostril as needed for Congestion. Active [...] mouth at bedtime as needed for Sleep. [place] brand 30 Tablet 3 04/14/2024 Active Lisinopril [...] Breath. 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 Increased risk for Hereditary Cardiomyopathy. Please click the link below for a brief summary of current clinical management recommendations for Hypertrophic Cardiomyopathy. MYH7 Coronary artery disease invo lving [place] coronary artery of [place]iyot heart without angina pectoris 09/26/2021 MISHRA (dyspnea [...] 08/16/2020 Acute mid back pain 11/29/2018 09/26/20 19 [...] Order received for tagrisso. Forwarded order to [facility]. Patient needs to come to office [...] 1:00 PM EDT Pharmacy Pharmacy Hematology Oncology [facility] [address] [place] [address] [facility] Hem/Onc [address] [place] [address] 10/08/2024 10:20 AM EST Office Visit Pulmonary Medicine, [facility] 132 [facility] [place] [address] Rico Wall MD [address] [place] [id number] Scheduled Orders Name Type Priority Associated Diagnoses Orde r Schedule HEPATITIS B SURFACE ANTIBODY Lab STAT Malignant neoplasm of upper lobe of left lung (HCC) Metastasis to mediastinal lymph node (HCC) Encounter for screening for other viral diseases Expected: 07/08/2024 (Approximate), Expires: 07/08/2025 HEPATITIS B SURFACE ANTIGEN Lab STAT Malignant neoplasm of upper lobe of left lung (HCC) Metastasis to mediastinal lymph node (HCC) Encounter for screening for other viral diseases Expected: 07/08/2024 (Approximate), Expires: 07/08/2025 HEPATITIS B CORE ANTIBODIES IGG AND IGM Lab STAT Malignant neoplasm of upper lobe of left lung (HCC) Metastasis to mediastinal lymph node (HCC) Encounter for screening for other viral diseases Expected: 07/08/2024 (Approximate), Expires: 07/08/2025 ECHO, COMPLETE (2D), TRANS-THORACIC Echocardiology Routine Malignant neoplasm of upper lobe of left lung (HCC) Metastasis to mediastinal lymph node (HCC) Expected: 07/08/2024 (Approximate), Expires: 08/08/2026 EKG EKG Routine Malignant neoplasm of upper lobe of left lung (HCC) Metastasis to mediastinal lymph node (HCC) Expected: 07/08/2024 (Approximate), Expires: 08/08/2025 CBC WITH WBC DIFFERENTIAL Lab STAT Malignant neoplasm of upper lobe of left lung (HCC) Metastasis to mediastinal lymph node (HCC) Expected: 07/08/2024 (Approximate), Expires: 07/08/2025 COMPREHENSIVE METABOLIC PANEL Lab STAT Malignant neoplasm of upper lobe of left lung (HCC) Metastasis to mediastinal lymph node (HCC) Expected: 07/08/2024 (Approximate), Expires: 07/08/2025 Health Maintenance Due Date Last Done Comments [...] 01/02/2025 01/02/2024, 02/24, 02/22/2023, Additional history exists GFR 05/19/2025 05/19/2024, 0305/2024, 01/18/2024, Additional history exists O2 ASSESSMENT COMPLETED IN PAST YEAR FOR COPD 06/25/2025 06/25/2024 Albumin/Creatinine Ratio 02/28/2026 02/28/2023 DXA Scan 06/11/2030 [...] Encounter for screening for other viral diseases documented in this encounter Advance Directives * [...] Directives occurred with: Not Discussed Care Teams Storm Sash Maker Relationship Specialty Start Date End Date Cj Rico III, MD 200 [place] [address] PCP - General Family Medicine 05/19/14 documented as of this encounter
--- OUTSIDE RECORDS SUMMARY | 2024-07-27 08:38 | External Medical Summary | Summary of Care ---
Author Name Unknown Organization [facility] Address [address] [place] [address] Phone [phone] Care Team Providers Care Stone Splitter Name Role Phone Trisha DUTTA MD, Cj Cote Primary Care Provider [phone] Reason for Visit * Reason Onset Date Comments Advice 07/07/2024 Simmons Status Check 07/07/2024 Encounter Details Date Type Department Care Team (Late st Contact Info) Description 07/07/2024 Refill Hematology/Oncology [facility] [address] [place] [address] Services, Scheduling [address] [place] [address] Malignant neoplasm of upper lobe of left lung (HCC)*; Malignant neoplasm of lung, unspecified laterality, unspecified part of lung (HCC); Metastasis to mediastinal lymph node (HCC); Adenocarcinoma [...] Paroxysmal atrial fibrillation (HCC),Coronary artery disease involving [place] coronary artery of [place] heart without angina pectoris,Dyslipidem ia, goal LDL [...] every night at bedtime. Active Saline Nasal [place] 0.65 % Nasal Solution ([place]) Administer 1 [place] into nostril as needed for Congestion. Active [...] mouth at bedtime as needed for Sleep. Radialogica brand 30 Tablet 3 04/14/2024 Active Lisinopril [...] (muscle spasm). 30 Tablet 1 07/07/2024 Active guaiFENesin-Codeine 100-10 MG/5ML Oral Solution (Robitussin AC)Indications:Dena gnant neoplasm of lung, unspecified laterality, unspecified part of lung (HCC) Take 5 mL by mouth 3 times a day as needed for Cough. 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 Increased risk for Hereditary Cardiomyopathy. Please click the link below for a brief summary of current clinical management recommendations for Hypertrophic Cardiomyopathy. MYH7 Coronary artery disease invo lving [place] coronary artery of [place] heart without angina pectoris 09/26/2021 MISHRA (dyspnea [...] mRNA, LNP-s, No Pre serve, 2-Dose Series ([employer]) 10/29/2021,02/07/2021,01/03/2021 PPD 04/27/2010, 0,04/08/2010,04/08,10/25/2006,10/25/2006 Pneumococcal Polysaccharide PPV23 [...] Telephone Encounter - Cortez Simmons MD - 07/08/2024 11:55 AM EDT E-prescribed guaifenesin codeine liquid. NGS checkup (06/24/2024). -TMB --> 3.8 which is low -MSI stable -EGFRexon 19 deletion, [id number],--> present - MET ampullary reaction present, copy number --> 6.3 - CDKN2B and 2A --> positive. - RBM10--> positive - because of EGFR axilla 19 deletion positive, I would consider for osimertinib treatment. No chemotherapy at this time. I would like to see her in the clinic. She can have chemotherapy teaching for osimertinib at the same time. * Telephone Encounter - Judy Gonzales CPhT - 07/08/2024 11:14 AM EDT Pt's daughter calling to check on status of Ipratropium [place] 0.02 % Inhalation Solution (Atrovent) . Caller states she was advised that the medication is needing a PA. Caller states they are ok with paying the 15$ for the cough medicine but the solution is to much money. Caller can be reached at [phone]. Thank you, Verna Gonzales CPhT Business Transformation Consultant II [facility] [address] [place] [address], [facility] [address] [phone] * Telephone Encounter - Bebe Dean RN - 07/08/2024 10:37 AM EDT Pended jeisonsin AC. Dr Simmons: - please sign if agreeable - patient has no follow up scheduled- do you need to see her, and if so when? * Telephone Encounter - Priya Parikh utility bill complaints investigator - 07/08/2024 9:25 AM EDT Daughter calling as she advised that [facility] does not have the promethazine with codeine in stock. Called [facility], and they do not have it either. They have them separate in stock. They have guanfacine - codeine as robitussin AC. Please review. Thank You, Priya Parikh [facility] Nuclear Medicine Specialist III [facility] 07/08/2024, 9:30 AM * Telephone Encounter - Bebe Dean RN - 07/08/2024 7:57 AM EDT Per chart review, Dr Beltran sent this rx in for patient. * Telephone Encounter - Elena Guadalupe OSA - 07/07/2024 4:51 PM EDT Hello daughter calling stating pt is having a hard time talking and even breathing some with this terrible cough she has asking if it is possible to get something like cough syrup prescribed to her w/coden in it ? To help her sleep. 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 [place] [address] 07/08/2024 1:00 PM EDT Pharmacy Pharmacy Hematology Oncology [facility] [address] [place] [address] [facility] Hem/Onc [address] [place] [address] 10/08/2024 10:20 AM EST Office Visit Pulmonary Medicine, [facility] 132 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
--- OUTSIDE RECORDS SUMMARY | 2024-07-27 08:38 | External Medical Summary | Summary of Care ---
Author Name Unknown Organization [facility] Address [address] [place] [address] Phone [phone] Care Team Providers Care Pyrotechnic Mixer Name Role Phone Trisha DUTTA MD, Cj Cote Primary Care Provider [phone] Encounter Details Date Type Department Care Team (Late st Contact Info) Description 07/07/2024 Orders Only Hematology/Oncology [facility] [place] 200 [facility] [place] [address] Willi Beltran MD [address] [place] [address] Malignant neoplasm of lung, unspecified laterality, unspecified part of lung (HCC)* Allergies Active Allergy Reactions Criticality Noted Date Comments Losartan Potassium Edema face/lips/tongue High 06/30 Fentanyl Itching 08/30/2016 Oxycodone 06/07/2023 Itching all over Penicillins Edema face/lips/tongue High 11/15/2001 Sulfa Antibiotics Other (Please comment) 2000 Urinary frequency Topiramate 04/09/2023 Other reaction(s): Blurry Vision Tramadol Other (Please comment) 01/01/2018 hallucinations documented as of this encounter (statuses as of 07/07/2024) Medications Medication Sig Dispensed Refills Start Date [...] Paroxysmal atrial fibrillation (HCC),Coronary artery disease involving [place] coronary artery of [place] heart without angina pectoris,Dyslipidem ia, goal LDL [...] every night at bedtime. Active Saline Nasal [place] 0.65 % Nasal Solution ([place]) Administer 1 [place] into nostril as needed for Congestion. Active [...] mouth at bedtime as needed for Sleep. [place] brand 30 Tablet 3 04/14/2024 Active Lisinopril [...] needed for Cough. 250 mL 07/07/2024 Active Hospital, Clinic, or Other Facility Administered [...] as of this encounter (statuses as of 07/07/2024) Active Problems Problem Noted Date Diagnosed Date Primary lung cancer 06/17/2024 Overview: 3 cm left apex lesion with extensive lymph nodes, small pleural effusion Coronary artery disease invo lving [place] coronary artery of [place] heart with angina pectoris 03/25/2023 Acquired absence of other sp ecified parts of digestive tract 11/10/2022 Arthrodesis status 11/10/2022 Complication of anesthesia 11/10/2022 Compression fracture of T12 vertebra 11/10/2022 Discitis 11/10/2022 Gout 11/10/2022 History of lumbar fusion 11/10/2022 Inflammation of sacroiliac joint 11/10/2022 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 Increased risk for Hereditary Cardiomyopathy. Please click the link below for a brief summary of current clinical management recommendations for Hypertrophic Cardiomyopathy. MYH7 Coronary artery disease invo lving [place] coronary artery of [place] heart without angina pectoris 09/26/2021 MISHRA (dyspnea [...] as of this encounter (statuses as of 07/07/2024) Resolved Problems Problem Noted Date Diagnosed Date [...] as of this encounter (statuses as of 07/07/2024) Immunizations Name Administration Dates Next Due COVID-19 [...] as of this encounter Progress Notes * Willi Beltran MD - 07/07/2024 5:13 PM EDT Daughter called for cough medicine. Patient has cough. Recent diagnosis of lung ca. Prescription for codene cough syrup send to pharmacy. documented in this encounter Plan of Treatment Upcoming Encounters Date Type Department Care Team (Late st Contact Info) Description 07/08/2024 1:00 PM EDT Imaging Radiology [facility], [address] [place] [address] 07/25/2024 10:30 AM EDT PulmDiagnostic Pulmonary Function Lab, [address] [place] [address] [place], [address] [place] [address] 10/08/2024 10:20 AM EST Office Visit Pulmonary Medicine, [facility] [address] [place] [address] Rico Wall MD [address] [facility] [place] [address] Health Maintenance Due Date Last Done Comments [...] lung, unspecified laterality, unspecified part of lung (HCC)- Primary documented in this encounter Advance [...] Directives occurred with: Not Discussed Care Teams Pyrotechnic Mixer Relationship Specialty Start Date End Date Cj Rico III, MD [address] [place] [address] PCP - General Family Medicine 05/19/14 documented as of this encounter
--- OUTSIDE RECORDS SUMMARY | 2024-07-27 08:38 | External Medical Summary ---
Author Name Unknown Address Unknown Organization K01:[facility] - [address] [place] [address] Laboratory Report Ordering Provider Test Date Status YOBANI PAULA 07/08/2024 16:05:25 Final Observation Date Value Abnormality Reference (Units ) Status Hep B surface Ag 07/08/2024 16:05:25 Negative Neg ative Final Performing Location [facility] - [address] [place] [address]
--- OUTSIDE RECORDS SUMMARY | 2024-07-27 08:38 | External Medical Summary ---
Author Name Unknown Address Unknown Organization K01:[facility] [place] [address] [place] [address] Laboratory Report Ordering Provider Test Date Status YOBANI PAULA 07/08/2024 16:05:25 Final Observation Date Value Abnormality Reference (Units) Status Hepatitis B virus surface Ab [Units/volume] in Serum or Plasma by Immunoassay 07/08/2024 16:05:25 <3.5 (mIU/mL) Final Hepatitis B virus surface Ab [Presence] in Serum by Immunoassay 07/08/2024 16:05:25 Negative Final HEPATITIS B SURFACE ANTIBODY, INTERPRETATION 07/08/2024 16:05:25 NOT immune to Hepatitis B Virus Final POSITIVE: >=11.5 mIU/mL
INDETERMINATE: 8.5-<11.5 mIU/mL
NEGATIVE: <8.5 mIU/mL Performing Location LAB[facility]ATORY [place] [address] [place] [address]
--- OUTSIDE RECORDS SUMMARY | 2024-07-27 08:38 | External Medical Summary | Summary of Care ---
Author Name Unknown Organization [facility] Address [address] [place] [address] Phone [phone] Care Team Providers Care Industrial Welder Name Role Phone Trisha DUTTA MD, Cj Cote Primary Care Provider [phone] Reason for Referral * Precert (Diagnostic Medical) (Within 10 days (routine)) - Authorized Specialty Diagnoses / Procedures Referred By Contac t Referred To Contact Cardiac Studies Diagnoses Malignant neoplasm of upper lobe of left lung (HCC) Metastasis to mediastinal lymph node (HCC) Procedures ECHO, COMPLETE (2D), TRANS-THORACIC Cortez Simmons MD 200 [facility] [place] [address] Referral ID Status Reason Start Date Expiration Date V isits Requested Visits Authorized [id number] Authorized Precert 07/08/2024 999 999 Reason for Visit * Reason Onset Date Comments Precert Future 07/08/2024 tagris Encounter Details Date Type Department Care Team (Late st Contact Info) Description 07/08/2024 Telephone Hematology/Oncology Treatment, [place] [address] [place] [id number] Cortez Simmons MD 200 [facility] [address] Precert Future (tagrisso) Allergies Active Allergy Reactions [...] Paroxysmal atrial fibrillation (HCC),Coronary artery disease involving [place] coronary artery of [place] heart without angina pectoris,Dyslipidem ia, goal LDL [...] every night at bedtime. Active Saline Nasal [place] 0.65 % Nasal Solution ([place]) Administer 1 [place] into nostril as needed for Congestion. Active [...] mouth at bedtime as needed for Sleep. [place] brand 30 Tablet 3 04/14/2024 Active Lisinopril [...] Breath. 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 Increased risk for Hereditary Cardiomyopathy. Please click the link below for a brief summary of current clinical management recommendations for Hypertrophic Cardiomyopathy. MYH7 Coronary artery disease invo lving [place] coronary artery of [place] heart without angina pectoris 09/26/2021 MISHRA (dyspnea [...] encounter Miscellaneous Notes * Addendum Note - Bebe Dean RN - 07/08/2024 2:47 PM EDTAddended by: BEBE DEAN on: 07/08/2024 02:47 PM Modules accepted: Orders * Telephone Encounter - Bebe Dean RN - 07/08/2024 2:02 PM EDT Order received for tagrisso. Forwarded order to [facility]. Patient needs to come to office [...] 1:00 PM EDT Pharmacy Pharmacy Hematology Oncology [address] [address] [facility], [facility] Clinic Hem/Onc [address] [place] [address] 10/08/2024 10:20 AM EST Office Visit Pulmonary Medicine, [facility] 132 [facility] [place] [address] Rico Wall MD [address] [place] [phone] Scheduled Orders Name Type Priority Associated Diagnoses [...] 02/22/2023, Additional history exists GFR 05/19/2025 05/19/2024, 03/0 05/2024, 01/18/2024, Additional history exists O2 ASSESSMENT [...] Directives occurred with: Not Discussed Care Teams Industrial Welder Relationship Specialty Start Date End Date Cj Rico III, MD 200 [facility] [place] [address] PCP - General Family Medicine 05/19/14 documented as of this encounter
--- OUTSIDE RECORDS SUMMARY | 2024-07-27 08:38 | External Medical Summary ---
Author Name Unknown Address Unknown Organization K09:[facility] [place] [address] Laboratory Report Ordering Provider Test Date Status YOBANI PAULA 07/08/2024 16:05:25 Final Observation Date Value Abnormality Reference (Units ) Status SYNC LEUKOCYTES IN BLOOD BY AUTOMATED COUNT 07/08/2024 16:05:25 11.36 Above high normal 4.00-10.80 (K/uL) Final Segs 07/08/2024 16:05:25 65.8 40.0-75.0 (%) Final Lymphs % 07/08/2024 16:05:25 15.9 Below low normal 18.0-42.0 (%) Final Monos 07/08/2024 16:05:25 9.4 1.0-11.0 (%) Final Eosinophils 07/08/2024 16:05:25 8.3 Above high normal 0.0-6.0 (%) Final Basos 07/08/2024 16:05:25 0.6 0.0-2.0 (%) Final Absolute Segs 07/08/2024 16:05:25 7.47 1.80-7.70 (K/uL) Final Lymphs, absolute 07/08/2024 16:05:25 1.81 1.00-4.80 (K/ul) Final Monos, Abs 07/08/2024 16:05:25 1.07 0.00-1.10 (K/uL) Final Eos, Abs 07/08/2024 16:05:25 0.94 Above high normal 0.00-0.70 (K/uL) Final Basos, Abs 07/08/2024 16:05:25 0.07 0.00-0.20 (K/uL) Final Performing Location [facility] [place] [address]
--- OUTSIDE RECORDS SUMMARY | 2024-07-27 08:38 | External Medical Summary | Summary of Care ---
Author Name Unknown Organization [facility] Address [address] [place] [address] Phone [phone] Care Team Providers Care Estate Planning Director Name Role Phone Trisha DUTTA MD, Cj Cote Primary Care Provider [phone] Reason for Visit * Reason Onset Date Comments Advice 07/07/2024 Simmons Status Check 07/07/2024 Encounter Details Date Type Department Care Team (Late st Contact Info) Description 07/07/2024 Refill Hematology/Oncology [facility] [address] [place] [phone] Services, Scheduling [address] [place] [address] Malignant neoplasm of upper lobe of left [...] Paroxysmal atrial fibrillation (HCC),Coronary artery disease involving [place] coronary artery of [place] heart without angina pectoris,Dyslipidem ia, goal LDL [...] every night at bedtime. Active Saline Nasal [place] 0.65 % Nasal Solution (Coffee) Administer 1 [place] into nostril as needed for Congestion. Active [...] mouth at bedtime as needed for Sleep. 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 Increased risk for Hereditary Cardiomyopathy. Please click the link below for a brief summary of current clinical management recommendations for Hypertrophic Cardiomyopathy. MYH7 Coronary artery disease invo lving [place] coronary artery of [place] heart without angina pectoris 09/26/2021 MISHRA (dyspnea [...] mRNA, LNP-s, No Pre serve, 2-Dose Series ([employer]) 10/29/2021,02/07/2021,01/03/2021 PPD 04/27/2010, 0,04/08/2010,04/08,10/25/2006,10/25/2006 Pneumococcal Polysaccharide PPV23 [...] Telephone Encounter - Jay Freed RN - 07/08/2024 2:33 PM EDT Sent to Pulm/Dr. Wall. * Telephone Encounter - Judy Gonzales CPhT - 07/08/2024 2:27 PM EDT Pharmacy is calling regarding Albuterol Sulfate 0.63 MG/3ML Inhalation Nebulization Solution (Accuneb) and Ipratropium [place] 0.02 % Inhalation Solution (Atrovent) that was recently sent. Caller states since the pt has Medicare part B they need to be more specific with the diagnosis and include the diagnosis code on the script. Please send if appropriate. Thank you, Verna Gonzales CPhT Independent Trader II [facility] [address], [address] [place] [address] [phone] * Telephone Encounter - Cortez Simmons MD - 07/08/2024 11:55 AM EDT E-prescribed guaifenesin codeine liquid. NGS checkup (06/24/2024). 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 Caller states she was advised that the medication is needing a PA. Caller states they are ok with paying the 15$ for the cough medicine but the solution is to much money. Caller can be reached at [phone]. Thank you, Verna Gonzales CPhT Independent Trader II [facility] [address], [address] [place] [address] [phone] * Telephone Encounter - Bebe Dean RN - 07/08/2024 10:37 AM EDT Pended robitussin AC. Dr Simmons: - please sign if agreeable - patient has no follow up scheduled- do you need to see her, and if so when? * Telephone Encounter - Priya Parikh PHARM Tech - 07/08/2024 9:25 AM EDT Daughter calling as she advised that [facility] does not have the promethazine with codeine in stock. Called [facility], and they do not have it either. They have them separate in stock. They have guanfacine - codeine as robitussin AC. Please review. Thank You, Priya Parikh [facility] Rating Officer III [facility]) 07/08/2024, 9:30 AM * Telephone Encounter - Bebe Dean RN - 07/08/2024 7:57 AM EDT Per chart review, Dr Beltran sent this rx in for patient. * Telephone Encounter - Elena Guadalupe OSA - 07/07/2024 4:51 PM EDT Mildred daughter calling stating pt is having a hard time talking and even breathing some with this terrible cough she has asking if it is possible to get something like cough syrup prescribed to her w/coden in it ? To help her sleep. 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 Hem[facility]Onc [address] [place] [address] 10/08/2024 10:20 AM EST Office Visit Pulmonary Medicine, [facility] [address] [facility] [place] [address] Rico Wall MD [address] [facility] [phone] Health Maintenance Due Date Last Done Comments [...] Directives occurred with: Not Discussed Care Teams Estate Planning Director Relationship Specialty Start Date End Date Cj Rico III, MD [address] [place] [address] PCP - General Family Medicine 6/24/14 documented as of this encounter
--- OUTSIDE RECORDS SUMMARY | 2024-07-27 08:38 | External Medical Summary | Summary of Care ---
Author Name Unknown Organization [facility] Address [address] [place] [address] Phone [phone] Care Team Providers Care Clin Tech Name Role Phone Trisha DUTTA MD, Cj Cote Primary Care Provider [phone] Encounter Details Date Type Department Care Team (Late st Contact Info) Description 07/08/2024 2:45 PM EDT Nurse Only Hematology/Oncology [facility] [employer] [address] [employer] [place] [address] Jenn, Nurse Hem Onc [place] [address] [employer] [address] Arrived Allergies Active Allergy Reactions Criticality Noted Date [...] Paroxysmal atrial fibrillation (HCC),Coronary artery disease involving [place] coronary artery of [place] heart without angina pectoris,Dyslipidem ia, goal LDL [...] every night at bedtime. Active Saline Nasal [place] 0.65 % Nasal Solution ([place]) Administer 1 [place] into nostril as needed for Congestion. Active [...] mouth at bedtime as needed for Sleep. [place] brand 30 Tablet 3 04/14/2024 Active Lisinopril [...] Breath. 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 Increased risk for Hereditary Cardiomyopathy. Please click the link below for a brief summary of current clinical management recommendations for Hypertrophic Cardiomyopathy. MYH7 Coronary artery disease invo lving [place] coronary artery of [place] heart without angina pectoris 09/26/2021 MISHRA (dyspnea [...] mRNA, LNP-s, No Pre serve, 2-Dose Series ([employer]) 10/29/2021,02/07/2021,01/03/2021 PPD 04/27/2010, 0,04/08/2010,04/08,10/25/2006,10/25/2006 Pneumococcal Polysaccharide PPV23 [...] No 01/09/2018 documented as of this encounter Nursing Notes * Bebe Dean, RN - 07/08/2024 3:48 PM EDT Nurse education for jamalrisso complete. documented in this encounter Plan of Treatment Upcoming Encounters Date Type Department Care Team (Late st Contact Info) Description 07/09/2024 1:00 PM EDT Pharmacy Pharmacy Hematology Oncology [facility] [address] [place] [address] [facility], [facility] Hem/Onc [address] [place] [address] 10/08/2024 10:20 AM EST Office Visit Pulmonary Medicine, [facility] [address] [facility] [place] [address] Rico Wall MD [address] [facility] [address] Health Maintenance Due Date Last Done Comments [...] 02/22/2023, Additional history exists GFR 05/19/2025 05/19/2024, 030 05/2024, 01/18/2024, Additional history exists O2 ASSESSMENT [...] Directives occurred with: Not Discussed Care Teams Clin Tech Relationship Specialty Start Date End Date Cj Rico III, MD [address] [place] [address] PCP - General Family Medicine 05/19/14 documented as of this encounter
--- OUTSIDE RECORDS SUMMARY | 2024-07-27 08:38 | External Medical Summary | Summary of Care ---
Author Name Unknown Organization [facility] Address [address] [place] [address] Phone [phone] Care Team Providers Care Pipe Organ Mechanic Name Role Phone Trisha DUTTA MD, Cj Cote Primary Care Provider [phone] Reason for Referral * Precert (Diagnostic Medical) (Within 10 days (routine)) - Authorized Specialty Diagnoses / Procedures Referred By Contac t Referred To Contact Cardiac Studies Diagnoses Malignant neoplasm of upper lobe of left lung (HCC) Metastasis to mediastinal lymph node (HCC) Procedures ECHO, COMPLETE (2D), TRANS-THORACIC Cortez Simmons MD [address] [facility] [place] [address] Referral ID Status Reason Start Date Expiration Date V isits Requested Visits Authorized [id number] Authorized Precert 07/08/2024 999 999 Reason for Visit * Reason Onset Date Comments Precert Future 07/08/2024 tagris Encounter Details Date Type Department Care Team (Late st Contact Info) Description 07/08/2024 Telephone Hematology/Oncology [place], [place] [address] [place] [phone] [facility]ez [facility] [address] Precert Future (tagrisso) Allergies Active Allergy Reactions [...] Paroxysmal atrial fibrillation (HCC),Coronary artery disease involving [place] coronary artery of [place] heart without angina pectoris,Dyslipidem ia, goal LDL [...] every night at bedtime. Active Saline Nasal [place] 0.65 % Nasal Solution ([place]) Administer 1 [place] into nostril as needed for Congestion. Active [...] mouth at bedtime as needed for Sleep. [place] brand 30 Tablet 3 04/14/2024 Active Lisinopril [...] Breath. 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 Increased risk for Hereditary Cardiomyopathy. Please click the link below for a brief summary of current clinical management recommendations for Hypertrophic Cardiomyopathy. MYH7 Coronary artery disease invo lving [place] coronary artery of [place] heart without angina pectoris 09/26/2021 MISHRA (dyspnea [...] 07/08/2024 2:02 PM EDT Order received for [facility]. [facility]ed order to [facility]. Patient needs to come to office [...] 07/08/2024 2:45 PM EDT Nurse Only Hematology/Oncology [place] [address] [place] [address] Jenn, Nurse Hem Onc [place] [address] [place] [address] 07/09/2024 1:00 PM EDT Pharmacy Pharmacy Hematology Oncology [place] [address] [place] [address] [facility], [facility] Hem/Onc [address] [place], [place] [phone] 10/08/2024 10:20 AM EST Office Visit Pulmonary Medicine, [facility] [address] [facility] [place] [address] Rico Wall MD [address] [place] [address] Scheduled Orders Name Type Priority Associated Diagnoses [...] node (HCC) Expected: 07/08/2024 (Approximate), Expires: 08/08/2025 Health Maintenance Due Date Last Done Comments [...] Directives occurred with: Not Discussed Care Teams Pipe Organ Mechanic Relationship Specialty Start Date End Date Cj Rico III, MD [address] [place] [address] PCP - General Family Medicine 05/19/14 documented as of this encounter
--- OUTSIDE RECORDS SUMMARY | 2024-07-27 08:38 | External Medical Summary | Summary of Care ---
Author Name Unknown Organization [facility] Address [address] [place] [address] Phone [phone] Care Team Providers Care Cro Name Role Phone Trisha DUTTA MD, Cj Cote Primary Care Provider [phone] Reason for Visit * Reason Onset Date Comments Advice 07/07/2024 Simmons Status Check 07/07/2024 Encounter Details Date Type Department Care Team (Late st Contact Info) Description 07/07/2024 Refill Hematology/Oncology [facility] [address] [place] [phone] Services, Scheduling [address] [place] [address] Malignant neoplasm of upper lobe of left [...] Paroxysmal atrial fibrillation (HCC),Coronary artery disease involving [place] coronary artery of [place] heart without angina pectoris,Dyslipidem ia, goal LDL [...] every night at bedtime. Active Saline Nasal [place] 0.65 % Nasal Solution ([place]) Administer 1 [place] into nostril as needed for Congestion. Active [...] mouth at bedtime as needed for Sleep. 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 Increased risk for Hereditary Cardiomyopathy. Please click the link below for a brief summary of current clinical management recommendations for Hypertrophic Cardiomyopathy. MYH7 Coronary artery disease invo lving [place] coronary artery of [place] heart without angina pectoris 09/26/2021 MISHRA (dyspnea [...] mRNA, LNP-s, No Pre serve, 2-Dose Series (FNZ) 10/29/2021,02/07/2021,01/03/2021 PPD 04/27/2010, 0,04/08/2010,04/08,10/25/2006,10/25/2006 Pneumococcal Polysaccharide PPV23 [...] encounter Miscellaneous Notes * Telephone Encounter - Judy Gonzales CPhT - 07/08/2024 2:27 PM EDT Pharmacy is calling regarding Albuterol Sulfate 0.63 MG/3ML Inhalation Nebulization Solution (Accuneb) and Ipratropium [place] 0.02 % Inhalation Solution (Atrovent) that was recently sent. Caller states since the pt has Medicare part B they need to be more specific with the diagnosis and include the diagnosis code on the script. Please send if appropriate. Thank you, Verna Gonzales CPhT Sound Technician Supervisor II [facility]) [address] [place] [address], [address] [place] [address] [place] [address] [phone] * Telephone Encounter - Cortez Simmons MD - 07/08/2024 11:55 AM EDT E-prescribed guaifenesin codeine liquid. NGS checkup (06/24/2024). -TMB --> 3.8 which is low -MSI stable -EGFRexon 19 deletion, [id number],--> present - MET ampullary reaction present, copy [...] calling to check on status of Ipratropium [place] 0.02 % Inhalation Solution (Atrovent) . Caller states she was advised that the medication is needing a PA. Caller states they are ok with paying the 15$ for the cough medicine but the solution is to much money. Caller can be reached at [phone]. Thank you, Verna Gonzales CPhT Sound Technician Supervisor II [facility] [address] [place] [address], [address] [phone] * Telephone Encounter - Bebe Dean RN - 07/08/2024 10:37 AM EDT Pended jeisonsin AC. Dr Simmons: - please sign if agreeable - patient has no follow up scheduled- do you need to see her, and if so when? * Telephone Encounter - Priya Parikh road boss - 07/08/2024 9:25 AM EDT Daughter calling as she advised that [facility] does not have the promethazine with codeine in stock. Called [facility], and they do not have it either. They have them separate in stock. They have guanfacine - codeine as robitussin AC. Please review. Thank You, Priya Parikh [facility] Mastic Sprayer III [facility]) 07/08/2024, [...] sleep. I did adived that I page hematology oncology consultant and also that I was putting in a message to dr Simmons office to make aware as well Please give her a call thank you documented in this encounter Plan of Treatment Upcoming Encounters Date Type Department Care Team (Late st Contact Info) Description 07/08/2024 2:45 PM EDT Nurse Only Hematology/Oncology [place] [address] [place] [phone] Jenn, Nurse Hem Onc [place] [address] [place] [address] 07/09/2024 1:00 PM EDT Pharmacy Pharmacy Hematology Oncology [facility] [address] [place] [facility] [place] [address] [facility], [facility] Hem[facility]Onc [address] [place] [facility] [place] [address] 10/08/2024 10:20 AM EST Office Visit Pulmonary Medicine, [facility] 132 [facility] [place] [address] Rico Wall MD [address] [place] [address] Health Maintenance Due Date Last Done Comments [...] Directives occurred with: Not Discussed Care Teams Cro Relationship Specialty Start Date End Date Cj Rico III, MD [address] [place] [address] PCP - General Family Medicine 05/19/14 documented as of this encounter
--- OUTSIDE RECORDS SUMMARY | 2024-07-27 08:38 | External Medical Summary ---
Author Name Unknown Address Unknown Organization K09:[facility] [address] [place] [address] Laboratory Report Ordering Provider Test Date Status YOBANI PAULA 07/08/2024 16:05:25 Final Observation Date Value Abnormality Reference (Units ) Status BUN 07/08/2024 16:05:25 12 6-20 (mg/dL) Final Creatinine 07/08/2024 16:05:25 0.7 0.5-1.0 (mg/dL) Final Glomerular filtration rate/1.73 sq M.predicted [Volume Rate/Area] in Serum, Plasma or Blood by Creatinine-based formula (CKD-EPI) 07/08/2024 16:05:25 >90 >=60 (mL/min) Final eGFR is calculated based on the CKD-EPI 2020 equation. Sodium 07/08/2024 16:05:25 137 135-146 (m mol/L) Final Potassium 07/08/2024 16:05:25 4.3 3.5-5.1 (m mol/L) Final Cl 07/08/2024 16:05:25 103 98-107 (mm ol/L) Final CO2 07/08/2024 16:05:25 23 22-32 (mmo l/L) Final Anion gap 07/08/2024 16:05:25 11 7-15 (mmol /L) Final Glucose 07/08/2024 16:05:25 99 70-120 (mg /dL) Final Albumin 07/08/2024 16:05:25 4.1 3.8-5.0 (g /dL) Final AST (Aspartate aminotransferase) 07/08/2024 16:05:25 14 10-35 (U/L) Final Alk Phos 07/08/2024 16:05:25 68 35-130 (U/ L) Final Bilirubin, Total 07/08/2024 16:05:25 0.6 <=1 .2 (mg/dL) Final Calcium 07/08/2024 16:05:25 9.2 8.4-10.2 ( mg/dL) Final Protein 07/08/2024 16:05:25 6.3 6.0-8.3 (g /dL) Final ALT (Alanine aminotransferase) 07/08/2024 16:05:25 22 10-35 (U/L) Final Performing Location [facility] [address] [place] [address]
--- OUTSIDE RECORDS SUMMARY | 2024-07-27 08:38 | External Medical Summary ---
Author Name Unknown Address Unknown Organization K09:[facility] [address] Laboratory Report Ordering Provider Test Date Status YOBANI PAULA 07/08/2024 16:05:25 Final Observation Date Value Abnormality Reference (Units ) Status WBC, Total 07/08/2024 16:05:25 11.36 Above high normal 4 .00-10.80 (K/uL) Final RBC 07/08/2024 16:05:25 4.53 3.85-5.15 (M/uL) Final Hemoglobin 07/08/2024 16:05:25 14.2 12.0-15.3 (g/dL) Final HCT 07/08/2024 16:05:25 42.5 36.0-45.2 (%) Final MCV 07/08/2024 16:05:25 93.8 81.5-97.5 (fL) Final MCH 07/08/2024 16:05:25 31.3 27.0-34.0 (pg) Final MCHC 07/08/2024 16:05:25 33.4 32.0-36.0 (g/dL) Final RDW 07/08/2024 16:05:25 13.4 11.5-15.5 (%) Final Platelets 07/08/2024 16:05:25 303 140-400 (K /uL) Final MPV 07/08/2024 16:05:25 8.8 6.6-11.1 ( fL) Final Performing Location [facility] [place] [address]
--- OUTSIDE RECORDS SUMMARY | 2024-07-27 08:38 | External Medical Summary | Summary of Care ---
Author Name Unknown Organization [facility] Address [address] [place] [address] Phone [phone] Care Team Providers Care Chip Silo Tender Name Role Phone Trisha DUTTA MD, Cj Cote Primary Care Provider [phone] Reason for Visit * Reason Comments Outpatient Testing Encounter Details Date Type Department Care Team (Late st Contact Info) Description 07/08/2024 4:00 PM EDT Laboratory Laboratory [facility] [address] [place] [address] [facility] Scenery [address] [place] [address] Malignant neoplasm of upper lobe of left lung (HCC); Metastasis to mediastinal lymph node (HCC); Encounter for screening for other viral diseases Allergies Active Allergy Reactions Criticality Noted Date [...] Paroxysmal atrial fibrillation (HCC),Coronary artery disease involving chevak coronary artery of chevak heart without angina pectoris,Dyslipidem ia, goal LDL [...] every night at bedtime. Active Saline Nasal [place] 0.65 % Nasal Solution ([place]) Administer 1 [place] into nostril as needed for Congestion. Active [...] mouth at bedtime as needed for Sleep. [place] brand 30 Tablet 3 04/14/2024 Active Lisinopril [...] Breath. 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 Increased risk for Hereditary Cardiomyopathy. Please click the link below for a brief summary of current clinical management recommendations for Hypertrophic Cardiomyopathy. 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 pectoris 09/26/2021 MISHRA (dyspnea [...] mRNA, LNP-s, No Pre serve, 2-Dose Series ([employer]) 10/29/2021,02/07/2021,01/03/2021 PPD 04/27/2010, 0,04/08/2010,04/08,10/25/2006,10/25/2006 Pneumococcal Polysaccharide PPV23 [...] 1:00 PM EDT Pharmacy Pharmacy Hematology Oncology [facility] [address] [place] [address] [facility] [place] [facility] Hem/Onc [address] [place] [address] 10/08/2024 10:20 AM EST Office Visit Pulmonary Medicine, [facility] [address] [facility] [place] [address] Rico Wall MD [address] [place] [address] Pending Results Name Type Priority Associated Diagnoses Date /Time HEPATITIS B SURFACE ANTIBODY Lab STAT Malignant neoplasm of upper lobe of left lung (HCC) Metastasis to mediastinal lymph node (HCC) Encounter for screening for other viral diseases 07/08/2024 4:05 PM EDT HEPATITIS B SURFACE ANTIGEN Lab STAT Malignant neoplasm of upper lobe of left lung (HCC) Metastasis to mediastinal lymph node (HCC) Encounter for screening for other viral diseases 07/08/2024 4:05 PM EDT HEPATITIS B CORE ANTIBODIES IGG AND IGM Lab STAT Malignant neoplasm of upper lobe of left lung (HCC) Metastasis to mediastinal lymph node (HCC) Encounter for screening for other viral diseases 07/08/2024 4:05 PM EDT COMPREHENSIVE METABOLIC PANEL Lab STAT Malignant neoplasm of upper lobe of left lung (HCC) Metastasis to mediastinal lymph node (HCC) 07/08/2024 4:05 PM EDT Health Maintenance Due Date Last Done Comments [...] Not on filedocumented as of this encounter Procedures Procedure Name Priority Date/Time Associated Diagnosis Comments DIFFERENTIAL, AUTOMATED STAT 07/08/2024 4:05 PM EDT Malignant neoplasm of upper lobe of left lung (HCC) Metastasis to mediastinal lymph node (HCC) CBC STAT 07/08/2024 4:05 PM EDT Malignant neoplasm of upper lobe of left lung (HCC) Metastasis to mediastinal lymph node (HCC) CBC STAT 07/08/2024 4:05 PM EDT Malignant neoplasm of upper lobe of left lung (HCC) Metastasis to mediastinal lymph node (HCC) documented in this encounter Results * (ABNORMAL) DIFFERENTIAL, AUTOMATED (07/08/2024 4:05 PM EDT) WBC 11.36(H) 4.00 - 10.80 K/uL 07/08/2024 4:11 PM EDT [facility] [place] 56[facility]02 Neutrophils % 65.8 40.0 - 75.0 % 07/08/2024 4:11 PM EDT [facility] [place] 56-02 Lymphocytes % 15.9(L) 18.0 - 42.0 % 07/08/2024 4:11 PM EDT [facility] [place] 56-02 Monocytes % 9.4 1.0 - 11.0 % 07/08/2024 4:11 PM EDT [facility] [place] 56-02 Eosinophils % 8.3(H) 0.0 - 6.0 % 07/08/2024 4:11 PM EDT [facility] [place] 56-02 Basophils % 0.6 0.0 - 2.0 % 07/08/2024 4:11 PM EDT [facility] [place] 56-02 Absolute Neutrophils 7.47 1.80 - 7.70 K/uL 07/08/2024 4:11 PM EDT [facility] [place] 56-02 Absolute Lymphocytes 1.81 1.00 - 4.80 K/ul 07/08/2024 4:11 PM EDT [facility] [place] 56-02 Absolute Monocytes 1.07 0.00 - 1.10 K/uL 07/08/2024 4:11 PM EDT [facility] [place] 56-02 Absolute Eosinophils 0.94(H) 0.00 - 0.70 K/uL 07/08/2024 4:11 PM EDT [facility] [place] 56-02 Absolute Basophils 0.07 0.00 - 0.20 K/uL 07/08/2024 4:11 PM EDT [facility] [place] 56-02 Blood Venous blood specimen / Unknown Venipuncture / Unknown 07/08/2024 4:05 PM EDT 07/08/2024 4:05 PM EDT Cortez Simmons MD LAB BLOOD ORDERABLES [facility] 56- [address] [place] [address] * (ABNORMAL) CBC (07/08/2024 4:05 PM EDT) WBC 11.36(H) 4.00 - 10.80 K/uL 07/08/2024 4:11 PM [address]T [address] RBC 4.53 3.85 - 5.15 M/uL 07/08/2024 4:11 PM EDT [place] [address] HGB 14.2 12.0 - 15.3 g/dL 07/08/2024 4:11 PM EDT [address] HCT 42.5 36.0 - 45.2 % 07/08/2024 4:11 PM EDT [address] MCV 93.8 81.5 - 97.5 fL 07/08/2024 4:11 PM EDT [address] MCH 31.3 27.0 - 34.0 pg 07/08/2024 4:11 PM EDT [place] [address] MCHC 33.4 32.0 - 36.0 g/dL 07/08/2024 4:11 PM EDT [place] [address] RDW 13.4 11.5 - 15.5 % 07/08/2024 4:11 PM EDT [facility] 56 PLT 303 140 - 400 K/uL 07/08/2024 4:11 PM EDT [facility] 56 MPV 8.8 6.6 - 11.1 fL 07/08/2024 4:11 PM EDT [facility] 56 Blood Venous blood specimen / Unknown Venipuncture / Unknown 07/08/2024 4:05 PM EDT 07/08/2024 4:05 PM EDT Cortez Simmons MD LAB BLOOD ORDERABLES [facility] [place] 56-[address] [place] [address] documented in this encounter Visit Diagnoses Diagnosis [...] Directives occurred with: Not Discussed Care Teams Chip Silo Tender Relationship Specialty Start Date End Date Cj Rico III, MD [address] [facility] [place] [address] PCP - General Family Medicine 05/19/14 documented as of this encounter
--- OUTSIDE RECORDS SUMMARY | 2024-07-27 08:38 | External Medical Summary ---
Author Name Unknown Address Unknown Organization K01:LABORATORY [facility] - [facility] [address] [place] [address] Laboratory Report Ordering Provider Test Date Status YOBANI PAULA 07/08/2024 16:05:25 Final Observation Date Value Abnormality Reference (Units ) Status Hepatitis B virus core Ab [Presence] in Serum 07/08/2024 16:05:25 Negative Negative Final Performing Location LABORATORY [facility] - [address] [place] [address]
--- OUTSIDE RECORDS SUMMARY | 2024-07-27 08:39 | External Medical Summary | Summary of Care ---
Author Name Unknown Organization [facility] Address [address] [place] [address] Phone [phone] Care Team Providers Care Haulage Boss Name Role Phone Trisha DUTTA MD, Cj Cote Primary Care Provider [phone] Reason for Visit * Reason Onset Date Comments Films 06/30/2024 Encounter Details Date Type Department Care Team (Late st Contact Info) Description 06/30/2024 Telephone Radiology Film File [address] [place] [address] Support, Imaging Radiology [address] [place] [address] Films Allergies Active Allergy Reactions Criticality Noted Date Comments Losartan Potassium Edema face/lips/tongue High 06/30 Fentanyl Itching 08/30/2016 Oxycodone 06/07/2023 Itching all over Penicillins Edema face/lips/tongue High 11/15/2001 Sulfa Antibiotics Other (Please comment) 2000 Urinary frequency Topiramate 04/09/2023 Other reaction(s): Blurry Vision Tramadol Other (Please comment) 01/01/2018 hallucinations documented as of this encounter (statuses as of 06/30/2024) Medications Medication Sig Dispensed Refills Start Date [...] Paroxysmal atrial fibrillation (HCC),Coronary artery disease involving [place]ap[place] coronary artery of [place] heart without angina pectoris,Dyslipidem ia, goal LDL [...] every night at bedtime. Active Saline Nasal [place] 0.65 % Nasal Solution ([place]) Administer 1 [place] into nostril as needed for Congestion. Active [...] 14 days. 6 mL 3 10/16/2023 Active Benzonatate 100 MG Oral Capsule (Tesmain Sin)Indications: Simple chronic bronchitis (HCC) Take 1 Capsule by mouth 3 times a day as needed for Cough. Do not cut, crush, or chew. 50 Capsule 1 11/05/2023 Active Levothyroxine Sodium 100 MCG Oral Tablet [...] mouth at bedtime as needed for Sleep. [place] brand 30 Tablet 3 04/14/2024 Active Lisinopril [...] NEEDED FOR NAUSEA 20 Tablet 05/22/2024 Active LORazepam 0.5 MG Oral Tablet (Ativan) Take 1 Tablet by mouth every 6 hours as needed for Anxiety or Other (muscle spasm). 12 Tablet 06/11/2024 Active Baclofen 20 MG Oral TabletIndications:W hiplash injury to neck, subsequent encounter Take 1 Tablet by mouth in the morning and 1 Tablet at noon and 1 Tablet before bedtime. 30 Tablet 06/19/2024 Active Full Kit Nebulizer Set Use with Nebulizer Medication EVERY SIX HOURS WHILE AWAKE as directed. Dx Code: J44.9 1 Each 3 06/30/2024 Active Hospital, Clinic, or Other Facility Administered [...] as of this encounter (statuses as of 06/30/2024) Active Problems Problem Noted Date Diagnosed Date Primary lung cancer 06/17/2024 Overview: 3 cm left apex lesion with extensive lymph nodes, small pleural effusion Coronary artery disease invo lving [place]ap[place] coronary artery of [place] heart with angina pectoris 03/25/2023 Acquired absence of other sp ecified parts of digestive tract 11/10/2022 Arthrodesis status 11/10/2022 Complication of anesthesia 11/10/2022 Compression fracture of T12 vertebra 11/10/2022 Discitis 11/10/2022 Gout 11/10/2022 History of lumbar fusion 11/10/2022 Inflammation of sacroiliac joint 11/10/2022 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 Increased risk for Hereditary Cardiomyopathy. Please click the link below for a brief summary of current clinical management recommendations for Hypertrophic Cardiomyopathy. MYH7 Coronary artery disease invo lving [place]ap[place] coronary artery of [place]apai heart without angina pectoris 09/26/2021 MISHRA (dyspnea [...] as of this encounter (statuses as of 06/30/2024) Resolved Problems Problem Noted Date Diagnosed Date [...] as of this encounter (statuses as of 06/30/2024) Immunizations Name Administration Dates Next Due COVID-19 mRNA, LNP-s, No Pre serve, 2-Dose Series ([employer]) 10/29/2021,02/07/2021,01/03/2021 PPD 04/27/2010, 0,04/08/2010,04/08,10/25/2006,10/25/2006 Pneumococcal Polysaccharide PPV23 [...] encounter Miscellaneous Notes * Telephone Encounter - Valorie Uribe OSA - 06/30/2024 11:[address] [facility] [place] [place] requesting 06/19/24 images be pushed to their system. [place] Authorization to Release on file. Images pushed to [facility] [place] [place] external connection through [employer] Associated report(s) not needed. documented in this encounter Plan of Treatment Upcoming Encounters Date Type Department Care Team (Late st Contact Info) Description 07/25/2024 10:30 AM EDT PulmDiagnostic Pulmonary Function Lab, [facility] [address] [place] [address] [place], [address] [place] [address] 10/08/2024 10:20 AM EST Office Visit Pulmonary Medicine, [facility] [place] [address] [place] [address] Rico Wall MD [address] [facility] [place] [id number] Health Maintenance Due Date Last Done Comments Alpha-1 Antitrypsin 1971 Cologuard 1998 Fecal Occult Blood Test 1998 Sigmoidoscopy 1998 Zoster Vaccines (1 of 2) 2003 Pneumococcal Vaccine: 65+ Years (2 of 2 - PCV) 10/21/2017 10/21/2016 DTaP,Tdap,and Td Vaccines (2 - Td or [...] Directives occurred with: Not Discussed Care Teams Haulage Boss Relationship Specialty Start Date End Date Trisha DUTTA, Cj Cote MD [address] [facility] [place] [address] PCP - General Family Medicine 05/19/14 documented as of this encounter
--- OUTSIDE RECORDS SUMMARY | 2024-07-27 08:39 | External Medical Summary | Summary of Care ---
Author Name Unknown Organization [facility] Address [address] [place] [address] Phone [phone] Care Team Providers Care Full Time Paramedic Name Role Phone Trisha DUTTA MD, Cj Cote Primary Care Provider [phone] Encounter Details Date Type Department Care Team (Late st Contact Info) Description 05/28/2024 Orders Only Family Practice [facility] [address] [facility] [place] [address] Kaylan Hernandez PA-C [address] [facility] [place] [address] Allergies Active Allergy Reactions Criticality Noted Date Comments Losartan Potassium Edema face/lips/tongue High 06/30 Fentanyl Itching 08/30/2016 Oxycodone 06/07/2023 Itching all over Penicillins Edema face/lips/tongue High 11/15/2001 Sulfa Antibiotics Other (Please comment) 2000 Urinary frequency Topiramate 04/09/2023 Other reaction(s): Blurry Vision Tramadol Other (Please comment) 01/01/2018 hallucinations documented as of this encounter (statuses as of 07/02/2024) Medications Medication Sig Dispensed Refills Start Date [...] Paroxysmal atrial fibrillation (HCC),Coronary artery disease involving chinik coronary artery of chinik heart without angina pectoris,Dyslipidem ia, goal LDL [...] every night at bedtime. Active Saline Nasal [place] 0.65 % Nasal Solution ([place]) Administer 1 [place] into nostril as needed for Congestion. Active [...] Active Benzonatate 100 MG Oral Capsule (Tesmain Perldesi)Indications: Simple chronic bronchitis (HCC) Take 1 [...] mouth at bedtime as needed for Sleep. [place] brand 30 Tablet 3 04/14/2024 Active Lisinopril [...] NEEDED FOR NAUSEA 20 Tablet 05/22/2024 Active documented as of this encounter (statuses as of 07/02/2024) Active Problems Problem Noted Date Diagnosed Date Primary lung cancer 06/17/2024 Overview: 3 cm left apex lesion with extensive lymph nodes, small pleural effusion Coronary artery disease invo lving chinik coronary artery of chinik heart with angina pectoris 03/25/2023 Acquired absence of other sp ecified parts of digestive tract 11/10/2022 Arthrodesis status 11/10/2022 Complication of anesthesia 11/10/2022 Compression fracture of T12 vertebra 11/10/2022 Discitis 11/10/2022 Gout 11/10/2022 History of lumbar fusion 11/10/2022 Inflammation of sacroiliac joint 11/10/2022 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 Increased risk for Hereditary Cardiomyopathy. Please click the link below for a brief summary of current clinical management recommendations for Hypertrophic Cardiomyopathy. MYH7 Coronary artery disease invo lving chinik coronary artery of chinik heart without angina pectoris 09/26/2021 MISHRA (dyspnea [...] as of this encounter (statuses as of 07/02/2024) Resolved Problems Problem Noted Date Diagnosed Date [...] as of this encounter (statuses as of 07/02/2024) Immunizations Name Administration Dates Next Due COVID-19 mRNA, LNP-s, No Pre serve, 2-Dose Series ([employer]) 10/29/2021,02/07/2021,01/03/2021 PPD 04/27/2010, 0,04/08/2010,04/08,10/25/2006,10/25/2006 Pneumococcal Polysaccharide PPV23 [...] Care Team (Late st Contact Info) Description 07/02/2024 12:15 PM EDT Office Visit Hematology/Oncology [facility] [place] [address] [place] [address] Cortez Simmons MD [address] [place] [address] 07/25/2024 10:30 AM EDT PulmDiagnostic Pulmonary Function Lab, [facility] [address] [place] [address] [place], [address] [facility] [place] [address] 10/08/2024 10:20 AM EST Office Visit Pulmonary Medicine, [facility] [address] [facility] [place] [address] Rico Wall MD [address] [place] [address] Health Maintenance Due Date Last Done Comments [...] Procedure Name Priority Date/Time Associated Diagnosis Comments RADIOLOGY EXAM - MRI (IMAGES ONLY, NO REPORT) Routine 05/28/2024 10:20 AM EDT documented in this encounter Results * RADIOLOGY EXAM - MRI (IMAGES ONLY, NO REPORT) (05/28/2024 10:20 AM EDT) 05/28/2024 10:1 8 AM EDT Narrative Scheduling, Silent - 07/02/2024 8:46 AM EDT This is an imaging study not interpreted or resulted by a [facility] or [employer] contracted radiologist. February Devonte Hernandez PA-C RAD MRI-MRA documented in this encounter Advance Directives * [...] Directives occurred with: Not Discussed Care Teams Full Time Paramedic Relationship Specialty Start Date End Date Stewart LUZ[place], Cj Cote MD [address] [place] [address] PCP - General Family Medicine 05/19/14 documented as of this encounter
--- OUTSIDE RECORDS SUMMARY | 2024-07-27 08:39 | External Medical Summary | Summary of Care ---
Author Name Unknown Organization [facility] Address [address] [place] [address] Phone [phone] Care Team Providers Care Direct Marketing Specialist Name Role Phone Trisha DUTTA MD, Cj Cote Primary Care Provider [phone] Reason for Referral * Evaluate & Treat - Unlimited Visits (Within 3 days (urgent)) - Authorized Specialty Diagnoses / Procedures Referred By Aiden partida Referred To Contact Radiation Oncology Diagnoses Primary malignant neoplasm of lung, unspecified laterality (HCC) Rico Wall MD [address] [place] [address] Referral ID Status Reason Start Date Expiration Date Visits Requested Visits Authorized [id number] Authorized Specialty Services Required 06/26/2024 999 999 Question Answer Referral Priority Within 3 days (urgent) Where should this appointment be scheduled? External - [facility] Radiation Oncology What is the preferred location to have this test performed? Non-S Site - [facility] Comments [place] Lung New Dx +ve EBUS 06/24/2024 Reason for Visit * Reason Onset Date Comments Referral 06/26/2024 [facility] Rad Oncolog y referral Encounter Details Date Type Department Care Team ([facility] st Contact Info) Description 06/26/2024 Telephone Radiation Oncology, [facility] [address] [place] [address] Services, Scheduling [address] [place] [address] Referral ([facility] Rad Oncology referral) Allergies Active Allergy Reactions Criticality Noted Date Comments Losartan Potassium Edema face/lips/tongue High 06/30 Fentanyl Itching 08/30/2016 Oxycodone 06/07/2023 Itching all over Penicillins Edema face/lips/tongue High 11/15/2001 Sulfa Antibiotics Other (Please comment) 2000 Urinary frequency Topiramate 04/09/2023 Other reaction(s): Blurry Vision Tramadol Other (Please comment) 01/01/2018 hallucinations documented as of this encounter (statuses as of 06/27/2024) Medications Medication Sig Dispensed Refills Start Date [...] Paroxysmal atrial fibrillation (HCC),Coronary artery disease involving nikolski coronary artery of nikolski heart without angina pectoris,Dyslipidem ia, goal LDL [...] every night at bedtime. Active Saline Nasal [place] 0.65 % Nasal Solution ([place]) Administer 1 [place] into nostril as needed for Congestion. Active [...] 10/16/2023 Active Benzonatate 100 MG Oral Capsule (Tessalon [...] mouth at bedtime as needed for Sleep. [place] brand 30 Tablet 3 04/14/2024 Active Lisinopril [...] Tablet before bedtime. 30 Tablet 06/19/2024 Active Hospital, Clinic, or Other Facility Administered [...] as of this encounter (statuses as of 06/27/2024) Active Problems Problem Noted Date Diagnosed Date Primary lung cancer 06/17/2024 Overview: 3 cm left apex lesion with extensive lymph nodes, small pleural effusion Coronary artery disease invo lving nikolski coronary artery of nikolski heart with angina pectoris 03/25/2023 Acquired absence of other sp ecified parts of digestive tract 11/10/2022 Arthrodesis status 11/10/2022 Complication of anesthesia 11/10/2022 Compression fracture of T12 vertebra 11/10/2022 Discitis 11/10/2022 Gout 11/10/2022 History of lumbar fusion 11/10/2022 Inflammation of sacroiliac joint 11/10/2022 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 Increased risk for Hereditary Cardiomyopathy. Please click the link below for a brief summary of current clinical management recommendations for Hypertrophic Cardiomyopathy. MYH7 Coronary artery disease invo lving nikolski coronary artery of nikolski heart without angina pectoris 09/26/2021 MISHRA (dyspnea [...] as of this encounter (statuses as of 06/27/2024) Resolved Problems Problem Noted Date Diagnosed Date [...] as of this encounter (statuses as of 06/27/2024) Immunizations Name Administration Dates Next Due COVID-19 mRNA, LNP-s, No Pre serve, 2-Dose Series ([employer]) 10/29/2021,02/07/2021,01/03/2021 PPD 04/27/2010, 0,04/08/2010,04/08,10/25/2006,10/25/2006 Pneumococcal Polysaccharide PPV23 [...] encounter Miscellaneous Notes * Telephone Encounter - Rico Wall MD - 06/26/2024 6:26 PM EDT Ankush send New Referral order to [facility] Rad Oncology. * Telephone Encounter - Scarlet Lopez OSA - 06/26/2024 4:49 PM EDT We received a referral from you for [place] to be seen in Radiation Oncology. The closest office to [place] that [facility] offers [place]. I spoke with her to schedule and she stated that the office was a bit to far for her. She asked if we could get this referral sent over to [facility] since their office is much closer. Please send [facility] this referral at your earliest convenience. Thank you! documented in this encounter Plan of Treatment Upcoming Encounters Date Type Department Care Team (Late st Contact Info) Description 07/25/2024 10:30 AM EDT PulmDiagnostic Pulmonary Function Lab, [facility] [address] [facility] [place] [address] [place], [address] [facility] [place] [address] 10/08/2024 10:20 AM EST Office Visit Pulmonary Medicine, [facility] [address] [facility] [place] [address] Rico Wall MD [address] [place] [address] Scheduled Referrals Name Type Priority Associated Diagnoses Orde r Schedule RADIATION/ONCOLOGY REFERRAL OP Referral Within 3 days (urgent) Primary malignant neoplasm of lung, unspecified laterality (HCC) Ordered: 06/26/2024 Health Maintenance Due Date Last Done Comments [...] occurred with: Not Discussed Care Teams Direct Marketing Specialist Relationship Specialty Start Date End Date Trisha LUZMARIA, Cj Cote MD [address] [place] [address] PCP - General Family Medicine 05/19/14 documented as of this encounter
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
--- OUTSIDE RECORDS SUMMARY | 2024-07-27 08:39 | External Medical Summary | Summary of Care ---
Author Name Unknown Organization [facility] Address [address] [place] [address] Phone [phone] Care Team Providers Care Apple Picker Name Role Phone Trisha DUTTA MD, Cj Cote Primary Care Provider [phone] Encounter Details Date Type Department Care Team (Latest Contact Info) Description 05/28/2024 10:20 AM EDT - 05/28/2024 11:59 PM EDT Hospital Encounter Radiology Film File [address] [place] [address] Discharge Disposition: Home - Self Care Allergies Active Allergy Reactions Criticality Noted Date Comments Losartan Potassium Edema face/lips/tongue High 06/30 Fentanyl Itching 08/30/2016 Oxycodone 06/07/2023 Itching all over Penicillins Edema face/lips/tongue High 11/15/2001 Sulfa Antibiotics Other (Please comment) 2000 Urinary frequency Topiramate 04/09/2023 Other reaction(s): Blurry Vision Tramadol Other (Please comment) 01/01/2018 hallucinations documented as of this encounter (statuses as of 07/03/2024) Medications Medication Sig Dispensed Refills Start Date [...] Paroxysmal atrial fibrillation (HCC),Coronary artery disease involving [place] coronary artery of [place] heart without angina pectoris,Dyslipidem ia, goal LDL [...] every night at bedtime. Active Saline Nasal [place] 0.65 % Nasal Solution ([place]) Administer 1 [place] into nostril as needed for Congestion. Active [...] mouth at bedtime as needed for Sleep. [place] brand 30 Tablet 3 04/14/2024 Active Lisinopril [...] as of this encounter (statuses as of 07/03/2024) Active Problems Problem Noted Date Diagnosed Date Primary lung cancer 06/17/2024 Overview: 3 cm left apex lesion with extensive lymph nodes, small pleural effusion Coronary artery disease invo lving [place] coronary artery of [place] heart with angina pectoris 03/25/2023 Acquired absence of other sp ecified parts of digestive tract 11/10/2022 Arthrodesis status 11/10/2022 Complication of anesthesia 11/10/2022 Compression fracture of T12 vertebra 11/10/2022 Discitis 11/10/2022 Gout 11/10/2022 History of lumbar fusion 11/10/2022 Inflammation of sacroiliac joint 11/10/2022 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 Increased risk for Hereditary Cardiomyopathy. Please click the link below for a brief summary of current clinical management recommendations for Hypertrophic Cardiomyopathy. MYH7 Coronary artery disease invo lving [place] coronary artery of [place] heart without angina pectoris 09/26/2021 MISHRA (dyspnea [...] as of this encounter (statuses as of 07/03/2024) Resolved Problems Problem Noted Date Diagnosed Date [...] as of this encounter (statuses as of 07/03/2024) Immunizations Name Administration Dates Next Due COVID-19 mRNA, LNP-s, No Pre serve, 2-Dose Series ([employer]) 10/29/2021,02/07/2021,01/03/2021 PPD 04/27/2010, 0,04/08/2010,04/08,10/25/2006,10/25/2006 Pneumococcal Polysaccharide PPV23 [...] Description 07/25/2024 9:45 AM EDT Imaging Radiology [address] [place] [address] 07/25/2024 10:30 AM EDT PulmDiagnostic Pulmonary Function Lab, [facility] [address] [facility] [place] [address] [address], [address] [facility] [place] [id number] 10/08/2024 10:20 AM EST Office Visit Pulmonary Medicine, [facility] [address] [facility] [place] [address] Rico Wall MD [address] [place] [address] Health Maintenance Due Date Last Done Comments [...] study not interpreted or resulted by a [facility] or [facility] contracted radiologist. February Devonte Hernandez PA-C RAD [...] Directives occurred with: Not Discussed Care Teams Apple Picker Relationship Specialty Start Date End Date Trisha III, Cj Cote MD [address] [place] [address] PCP - General Family Medicine 05/19/14 documented as of this encounter
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
--- OUTSIDE RECORDS SUMMARY | 2024-07-27 08:39 | External Medical Summary | Summary of Care ---
Author Name Unknown Organization [facility] Address [address] [place] [address] Phone [phone] Care Team Providers Care [employer] Admissions Representative Name Role Phone Trisha DUTTA MD, Cj Ctoe Primary Care Provider [phone] Reason for Referral * Evaluate & Treat - Unlimited Visits (Within 3 days (urgent)) - Authorized Specialty Diagnoses / Procedures Referred By Aiden partida Referred To Contact Radiation Oncology Diagnoses Primary malignant neoplasm of lung, unspecified laterality (HCC) Rico Wall MD [address] [place] [address] Referral ID Status Reason Start Date Expiration Date Visits Requested Visits Authorized [id number] Authorized Specialty Services Required 06/26/2024 999 999 Question Answer Referral Priority Within 3 days (urgent) Where should this appointment be scheduled? External - [facility] Radiation Oncology What is the preferred location to have this test performed? Non-[facility] Site - [facility] Comments [place] Lung New Dx +ve EBUS 06/24/2024 Reason for Visit * Reason Onset Date Comments Referral 06/26/2024 Encounter Details Date Type Department Care Team (Late st Contact Info) Description 06/26/2024 Telephone Radiation Oncology, [facility] [address] [place] [address] Services, Scheduling [address] [place] [address] Referral Allergies Active Allergy Reactions Criticality Noted Date [...] Paroxysmal atrial fibrillation (HCC),Coronary artery disease involving [place] coronary artery of [place] heart without angina pectoris,Dyslipidem ia, goal LDL [...] every night at bedtime. Active Saline Nasal [place] 0.65 % Nasal Solution ([place]) Administer 1 [place] into nostril as needed for Congestion. Active [...] mouth at bedtime as needed for Sleep. 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 Increased risk for Hereditary Cardiomyopathy. Please click the link below for a brief summary of current clinical management recommendations for Hypertrophic Cardiomyopathy. MYH7 Coronary artery disease invo lving [place] coronary artery of [place] heart without angina pectoris 09/26/2021 MISHRA (dyspnea [...] mRNA, LNP-s, No Pre serve, 2-Dose Series ([employer]) 10/29/2021,02/07/2021,01/03/2021 PPD 04/27/2010, 0,04/08/2010,04/08,10/25/2006,10/25/2006 Pneumococcal Polysaccharide PPV23 [...] Wall MD - 06/26/2024 6:26 PM EDT Plz send New Referral order to [facility] Rad Oncology. * Telephone Encounter - Scarlet Lopez OSA - 06/26/2024 4:49 PM EDT We received a referral from you for [place] to be seen in Radiation Oncology. The closest office to [place] that [facility] offers is [place]. I spoke with her to schedule and she stated that the office was a bit to far for her. She asked if we could get this referral sent over to [facility] since their office is much closer. Please send [facility] this referral at your earliest convenience. Thank you! documented in this encounter Plan of Treatment Upcoming Encounters Date Type Department Care Team (Late st Contact Info) Description 07/25/2024 10:30 AM EDT PulmDiagnostic Pulmonary Function Lab, [facility] [address] [facility] [place] [address] [address], [address] [facility] [place] [address] 10/08/2024 10:20 AM EST Office Visit Pulmonary Medicine, [facility] [address] [facility] [place] [address] Rico Wall MD [address] [place] [phone] Scheduled Referrals Name Type Priority Associated Diagnoses [...] Directives occurred with: Not Discussed Care Teams High School Admissions Representative Relationship Specialty Start Date End Date Cj Rico III, MD [address] [place] [address] PCP - General Family Medicine 05/19/14 documented as of this encounter
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
[2024-07-27] MEDS: ALBUTEROL 0.083% NEBU SOLN 3 ML VIAL NEB STA (08:58)
[2024-07-27] MEDS: HYDROmorphone INJ 1 MG/ML SYRINGE IV STA ×2 (08:58→10:07)
[2024-07-27 09:18] LABS: Basophils # (auto) 0.09 K/uL (0.00-0.20); Basophils % (auto) 0.7 %; Eosinophils # (auto) 1.01 K/uL (0.00-0.50); Eosinophils % (auto) 8.2 %; Hematocrit (blood only) 42.5 % (37.0-47.0); Hemoglobin 14.7 g/dl (12.0-16.0); Immature Granulocytes # (auto) 0.05 K/uL (0.01-0.20); Immature Granulocytes % (auto) 0.4 %; Lymphocytes # (auto) 1.23 K/uL (1.20-3.40); Mean Corpuscular Hemoglobin 30.7 pg (25.0-34.0); Mean Corpuscular Hgb Conc 34.6 g/dL (32.0-36.0); Mean Corpuscular Volume 88.7 fL (80.0-100.0); Mean Platelet Volume 8.8 fL (9.4-12.4); Monocytes # (auto) 0.96 K/uL (0.11-0.59); Monocytes % (auto) 7.8 %; Neutrophils # (auto) 8.91 K/uL (1.40-6.50); Neutrophils % (auto) 72.9 %; Platelet Count 357 K/uL (130-400); RDW Standard Deviation 39.7 fL (36.4-46.3); Red Blood Count 4.79 M/uL (4.20-5.40); White Blood Count 12.25 K/ul (4.8-10.8)
--- NOTE | 2024-07-27 09:20 | XRay Report ---
XR chest 1V portable CLINICAL HISTORY: Chest pain, nonspecific COMPARISON STUDY: Chest CT June 10, 2024. Chest radiograph June 27, 2024. FINDINGS: Postoperative findings within the spine are incidentally noted. There is no pneumothorax. C ardiomegaly with pulmonary vascular congestion. Small left pleural effusion persists with associated left basilar opacity. Left upper lobe lesion and pleural implants within the left hemithorax are bett er depicted on chest CT of June 10, 2024. IMPRESSION: 1. Cardiomegaly with pulmonary vascular congestion. 2. Suspicious left upper lobe lesion and multiple left pleural implants, better depicted on prior [facility] st CT. Small left pleural effusion with left basilar opacity. ACT 112: Negative or not required by law. Electronically signed by: Arsen Dominguez M.D. 07/27/2024 9:19 AM
[2024-07-27 09:39] LABS: Alanine Aminotransferase 10 U/L (7-52); Albumin Globulin Ratio 1.5 (0.9-2); Alkaline Phosphatase 66 U/L (34-104); Anion Gap 10 (3-11); Aspartate Aminotransferase 14 U/L (13-39); BUN Creatinine Ratio 18.9 (10-20); Bilirubin,Total 0.7 mg/dl (0.2-1.0); Blood Urea Nitrogen 10 mg/dl (6-23); Calcium 9.3 mg/dl (8.6-10.3); Carbon Dioxide 23 mmol/L (21-32); Chloride 103 mmol/L (98-107); Est GFR (African American) 110.7 ml/min; Est GFR (Non-African American) 95.5 ml/min; Globulin 2.6 gm/dl (2.5-4.0); Glucose 132 mg/dl (70-99(Fasting)); Lipase 4 U/L (11-82); Potassium 3.9 mmol/L (3.5-5.1); Sodium 136 mmol/L (136-145); Total Protein 6.6 gm/dl (6.0-8.3)
[2024-07-27 09:46] LABS: Troponin I High Sensitivity 4.3 pg/ml (0-14)
[2024-07-27 09:50] LABS: Partial Thromboplastin Time 27 Seconds (21-31); Prothrombin Time 11.2 Seconds (9.0-12.0)
[2024-07-27 10:04] LABS: Adenovirus PCR Not Detected (NotDetected); Bordetella parapertussis PCR Not Detected (NotDetected); Bordetella pertussis PCR Not Detected (NotDetected); Chlamydia pneumoniae PCR Not Detected (NotDetected); Coronavirus 229E PCR Not Detected (NotDetected); Coronavirus CoV-2 (COVID19)PCR Not Detected (NotDetected); Coronavirus HKU1 PCR Not Detected (NotDetected); Coronavirus NL63 PCR Not Detected (NotDetected); Coronavirus OC43PCR Not Detected (NotDetected); Human Metapneumovirus PCR Not Detected (NotDetected); Influenza A PCR Not Detected (NotDetected); Influenza B PCR Not Detected (NotDetected); Mycoplasma pneumoniae PCR Not Detected (NotDetected); Parainfluenza Virus 1 PCR Not Detected (NotDetected); Parainfluenza Virus 2 PCR Not Detected (NotDetected); Parainfluenza Virus 3 PCR Not Detected (NotDetected); Parainfluenza Virus 4 PCR Not Detected (NotDetected); Respiratory Syncytial VirusPCR Not Detected (NotDetected); Rhinovirus/Enterovirus PCR Not Detected (NotDetected)
[2024-07-27] MEDS: OPTIRAY 320 125ml IV ONE (10:18)
--- NOTE | 2024-07-27 10:48 | CT Scan Report ---
CT ANGIOGRAPHY OF THE CHEST, PULMONARY EMBOLUS PROTOCOL CLINICAL HISTORY: Chest pain. Shortness of breath. Lung cancer. COMPARISON STUDY: Chest CT June 10, 2024. Chest radiograph performed earlier today. TECHNIQUE: Following IV administration of 65 mL of Optiray, helical axial images of the chest were ob tained utilizing the pulmonary embolus protocol. Maximal intensity projections and sagittal and russ nal reformats were viewed on an independent 3D workstation. IV contrast was administered without com plication. Automated exposure control was utilized for the study. A dose lowering technique was uti lized adhering to the principles of ALARA. CT DOSE: 783.81 mGy.cm FINDINGS: No pulmonary emboli are identified. There is no thoracic aortic dissection. The heart is e nlarged. There is no pericardial effusion. A small left pleural effusion has mildly increased in size since CT of June 10, 2024. There is a trace right pleural effusion. Left lower cervical/supraclavicu lar left axillary lymphadenopathy has developed since CT of June 10, 2024. A left axillary lymph node on image 123 of 197 measures 2.4 x 1.4 cm. A left level 4 cervical lymph node on image 187 measures 1.3 x 1 cm. Mediastinal and left hilar adenopathy has slightly progressed. A right paratracheal lymph node on image 134 measures 2 x 2 cm. Left hilar adenopathy measures 1.4 cm in short axis diameter, p reviously 1.3 cm. This adenopathy results in narrowing of several pulmonary vessels. The previously d escribed lesion at the left lung apex measures 3.1 x 2 cm, previously 2.5 x 1.9 cm. An anterior left pleural implant on image 89 measures 1.6 cm, previously 1.4 cm. Infiltrative soft tissue within the m ediastinum, surrounding the nedra results in mild airway narrowing. No consolidation to suggest pneu monia. Numerous additional smaller left pleural implants have slightly increased. Mild interlobular s eptal thickening within the left upper lobe. Status post T12 kyphoplasty. Visualized portions of the upper abdomen are unremarkable. IMPRESSION: 1. No pulmonary emboli identified. 2. Mild progression of metastatic disease since chest CT of June 10, 2024, as described above. Progre ssion of lymphadenopathy, increase in size of a small malignant left effusion and increase in size of the left apical mass. 3. Interlobular septal thickening within the left upper lobe. This may reflect pulmonary edema or lym phangitic tumor. ACT 112: Negative or not required by law. Electronically signed by: Arsen Dominguez M.D. 07/27/2024 10:45 AM
[2024-07-27] MEDS ORDERED: DOCUSATE SODIUM/SENNA 50/8.6MG TAB PO PRN (12:54)
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
[2024-07-27] MEDS ORDERED: ALUMINUM/MAGNESIUM SUSP 30 ML UDC PO PRN (12:59)
[2024-07-27] MEDS ORDERED: ONDANSETRON INJ 2 MG/ML 2 ML VIAL IV PRN (12:59)
[2024-07-27] MEDS ORDERED: ALBUT/IPRATROP 3MG/0.5MG NEB 3 ML VIAL INH PRN (13:02)
[2024-07-27] MEDS: BUDESONIDE 0.5 MG/2 ML VIAL (PULMICORT) NEB SCH (13:17)
[2024-07-27] MEDS: FORMOTEROL 20 MCG/2 ML VIAL ONE (13:17)
[2024-07-27] MEDS: FAMOTIDINE 20 MG TAB PO SCH ×2 (13:37→20:27)
[2024-07-27] MEDS: FAMOTIDINE 20 MG TAB PO ONE (13:41)
[2024-07-27] MEDS: predniSONE 20 MG TAB PO SCH (13:41)
[2024-07-27] MEDS: LORazepam 0.5 MG TAB PO PRN (14:23)
--- NOTE | 2024-07-27 14:30 | Electrocardiogram Report ---
Test Reason : Blood Pressure : */* mmHG Vent. Rate : 83 BPM Atrial Rate : 83 BPM P-R Int : 134 ms QRS Dur : 72 ms QT Int : 364 ms P-R-T Axes : 50 9 29 degrees QTcB Int : 427 ms Normal sinus rhythm Normal ECG When compared with ECG of 27-Jun-2024 13:41, Premature ventricular complexes are no longer Present Premature supraventricular complexes are no longer Present Nonspecific T wave abnormality, improved in Inferior leads Nonspecific T wave abnormality no longer evident in Lateral leads Confirmed by Herb Paul ([id number]) on 07/27/2024 2:29:47 PM Referred By: REFERRED SELF Confirmed By: Herb Paul
[2024-07-27] MEDS: GADOBUTROL 30ML VIAL IV ONE (15:38)
[2024-07-27] MEDS: HYDROmorphone INJ 1 MG/ML SYRINGE IV PRN (16:15)
--- NOTE | 2024-07-27 16:28 | Magnetic Resonance Report ---
MRI OF THE CERVICAL SPINE WITH AND WITHOUT CONTRAST CLINICAL HISTORY: Lung cancer. Neck pain. Evaluate for metastatic disease. COMPARISON: MRI of the cervical spine April. Cervical spine CT June 27, 2024. TECHNIQUE: Utilizing a 1.5 Ro magnet and dedicated coil, multiplanar, multiecho imaging of the ce rvical spine was performed before and after intravenous administration of 8.5 of Gadavist. FINDINGS: This exam is mildly compromised by artifact. There are stable postoperative findings following C4-C7 anterior discectomy and fusion. Vertebral body heights are maintained. No marrow replacement is prese nt. Discogenic changes at the T1-T2 level are noted. Cervical cord signal and caliber are normal. The re is no abnormal enhancement within the cervical cord and canal on the postcontrast images. Visualiz ed portions of the posterior fossa are unremarkable. Several mildly enlarged left lower cervical lymp h nodes are noted as well as multiple left pleural implants, left apical lesion and a small left pleu ral effusion. These findings are better depicted on the same date chest CT. The appearance of the cer vical spine is similar to MRI of December 11, 2022. C2-C3: The central canal and neural foramen are patent. There is moderate facet arthrosis. C3-C4: Posterior disc osteophyte complex contacts the ventral aspect of the cord. There is mild cent ral canal stenosis. There is moderate to severe left neural foraminal stenosis due to facet arthrosis and uncovertebral hypertrophy. There is moderate right neural foraminal stenosis. C4-C5: No recurrent central canal stenosis is present. Neural foramen are patent. C5-C6: No recurrent central canal stenosis is noted. Neural foramen are patent. C6-C7: There is no central canal stenosis. Neural foramen are patent. C7-T1: Slight anterolisthesis is unchanged. Central canal is patent. There is mild bilateral neural foraminal stenosis. IMPRESSION: 1. No evidence for metastatic disease within the cervical spine. No suspicious marrow replacement. 2. Stable postoperative findings following C4-C7 anterior discectomy and fusion. No significant saleem e in appearance of the cervical spine since MRI of December 11, 2022. 3. Mild central canal stenosis at C3-C4, unchanged. Multilevel neural foraminal stenosis, as above. 4. Left lower cervical and mediastinal lymphadenopathy. Left-sided pleural implants and a left pleura l effusion. These findings are better depicted on same day chest CT. ACT 112: Negative or not required by law. Electronically signed by: Arsen Dominguez M.D. 07/27/2024 4:26 PM
--- NOTE | 2024-07-27 16:37 | Magnetic Resonance Report ---
MRI OF THE THORACIC SPINE WITH AND WITHOUT CONTRAST CLINICAL HISTORY: Lung cancer. Evaluate for metastatic disease. COMPARISON: Thoracic spine MRI May 27, 2014. Thoracic spine radiographs April 12, 2021. TECHNIQUE: Utilizing a 1.5 Ro magnet and dedicated coil, multiplanar, multiecho imaging of the th oracic spine was performed before and after the intravenous administration of 8.5 cc. FINDINGS: This exam is mildly compromised by motion artifact. There are postoperative findings consis tent with T12 kyphoplasty. No additional thoracic spine fractures are present. There is no suspicious marrow replacement within the thoracic spine. Discogenic changes are noted at multiple levels. There is no intracanalicular mass, fluid collection or abnormal enhancement. No large disc herniations are present. There is mild multilevel neural foraminal stenosis. Left lower cervical, mediastinal and le ft hilar lymphadenopathy is present. A left apical lesion and a small left pleural effusion are prese nt. These findings are better depicted on same-day chest CT. IMPRESSION: 1. No evidence for metastatic disease within the thoracic spine. No suspicious osseous lesions. 2. No acute thoracic spine fractures. Status post T12 kyphoplasty. 3. Mild to moderate multilevel degenerative disc disease and facet arthrosis within the thoracic spin e. No severe central canal stenosis. Exam mildly compromised by motion artifact. 4. Lymphatic and left pleural metastatic disease with a small left pleural effusion. Findings better depicted on same-day chest CT. ACT 112: Negative or not required by law. Electronically signed by: Arsen Dominguez M.D. 07/27/2024 4:34 PM
[2024-07-27] MEDS: FORMOTEROL 20 MCG/2 ML VIAL NEB SCH (19:34)
[2024-07-27] MEDS: HYDROcodone/HOMATROPINE SYRUP 5MG/1.5MG 5ML UDP PO PRN (20:24)
[2024-07-27] MEDS: HYDROmorphone HCL 2 MG TAB PO PRN (20:24)
[2024-07-27] MEDS: BACLOFEN 20 MG TAB PO SCH (20:27)
[2024-07-27] MEDS: HEPARIN SOD 5,000 UNIT/0.5 ML VIAL SQ SCH (20:28)
[2024-07-27] MEDS ORDERED: PROCHLORPERAZINE 5 MG in SYRINGE 4 ML IV PRN (20:39)
[2024-07-27] MEDS: ALIROCUMAB SQ SCH (20:53)
[2024-07-28 06:40] LABS: Hematocrit (blood only) 38.5 % (37.0-47.0); Hemoglobin 13.5 g/dl (12.0-16.0); Mean Corpuscular Hemoglobin 30.6 pg (25.0-34.0); Mean Corpuscular Hgb Conc 35.1 g/dL (32.0-36.0); Mean Corpuscular Volume 87.3 fL (80.0-100.0); Platelet Count 322 K/uL (130-400); RDW Coefficient of Variation 11.7 % (11.5-14.5); RDW Standard Deviation 37.7 fL (36.4-46.3); Red Blood Count 4.41 M/uL (4.20-5.40); White Blood Count 10.79 K/ul (4.8-10.8)
[2024-07-28 06:56] LABS: BUN Creatinine Ratio 18.6 (10-20); Calcium 8.8 mg/dl (8.6-10.3); Creatinine Clr Calc Pharmacy 118.1 ml/min; Est GFR (African American) 118.6 ml/min; Est GFR (Non-African American) 102.3 ml/min; Magnesium 1.8 mg/dl (1.7-2.4); Phosphorus 3.9 mg/dl (2.5-4.9); Potassium 3.7 mmol/L (3.5-5.1)
[2024-07-28] MEDS: ACETAMINOPHEN 325 MG TAB PO PRN (07:59)
[2024-07-28] MEDS: ASPIRIN 81 MG ECTAB PO SCH (08:00)
[2024-07-28] MEDS: CHOLECALCIFEROL 25 MCG (1000 UNITS) TAB PO SCH (08:01)
[2024-07-28] MEDS: lisinopril 20 MG TAB PO SCH (08:02)
[2024-07-28] MEDS: ADVANCED PROBIOTIC 625 MG CAPSULE PO SCH (08:02)
[2024-07-28] MEDS: POLYETHYLENE (MIRALAX) 17 GM PACK PO PRN (09:25)
--- NOTE | 2024-07-28 09:27 | Hospitalist Progress Note ---
Date of Service July 28, 2024 Assessment & Plan (1) Weak: Plan Weakness Patient reports not feeling well for several days, reports feeling weak. Respiratory pathogen panel negative Procal normal Reviewed Chest CT No signs of infection at this time Awaiting PT/OT. Increased upper back pain and neck pain: Recent diagnosis of metastatic small cell carcinoma of lung: Follows Dr Simmons. Patient diagnosed with SCC in mid May, prescribed Tagrisso but was not able to started due to insurance issue, finally got approved for the medicine and is awaiting for the medicine to arrive. 06/17/[address] SKULL BASE TO MID-THIGH FDG 1. Emphysema. 3 (CC) x 2.4 (AP) x 2.0 (TV) cm metabolically-active solid mass within the left lung apex, compatible with primary lung cancer. 2. Extensive metabolically-active mediastinal lymph node metastases. 3. Metabolically-active left lung pleural invasion and metastases. Small left malignant pleural effusion. Reviewed CTA chest which showed mild progression of metastatic disease from June 10 2024, lymphadenopathy, increase in size of small malignant left effusion, increase in size of left apical mass. No PE Cervical MRI did not show any metastastic disease, stable postop findings of C4- C7 anterior discectomy and fusion, unchanged mild central canal stenosis at C3-4 Thoracic MRI did not show any metastatic disease, No fractures. Mild to moderate multilevel DDD and facet arthrosis Patient is on dilaudid po at home Will optimize pain control Will increase po dilaudid to q4H prn for moderate pain for better pain control Continue IV dilaudid prn for severe pain for now Lidocaine patch on back Chronic cough, History of mod persistent asthma: Cough likely worsened with cancer progression Continue nebs, prednisone Continue antitussives History of PE: Patient reports history of PE in 2001 postoperatively. Patient reports she was never put on any blood thinner. Not on any blood thinner currently. PE negative this time. Other chronic medical condition: HTN, HLD, hypothyroidism etc. ---> continue home meds as when able. DVT prophylaxis: Heparin subcu DNR/DNI I spent a total of 55 minutes coordinating, documenting and providing care for this patient excluding time spent in performance of separately billed services Admission and Anticipated Discharge Date Admission Date: July 27, 2024 Subjective Patient seen and examined Reports moderate to severe chest pain, worse with movement and deep breaths Reports neck pain/upper back pain. Has had back pains in the past due to degenerative disc disease Reports cough, mostly dry; anorexia and generalized weakness Reports nausea. Denied vomiting, abd pain, diarrhea Denied fever, chills, dysuria, freq, urgency Physical Exam Constitutional: + acute distress (painful) and + well hy drated Eyes: PERRL, conjunctivae normal, anicteric sclerae ENMT: external ear and nose normal, oropharynx normal Respiratory: normal respiratory effort, lungs clear to auscultation Cardiovascular: Rate/Rhythm: regular rate and regular rhythm Chest (Breasts): Additional Comments: +chest wall tenderness Gastrointestinal (Abdomen): normal bowel sounds, soft, nontender, no hepatosplenomegaly Musculoskeletal: No pedal edema Neurologic: PERRL, EOMI, accommodation nl, no face palsy, no dysarthria Psychiatric: A+Ox3, euthymic affect Results & Data Results & Data Vital Signs (Past 12 Hours) Vital Signs Temp Pulse Pulse Pulse Resp BP Pulse Ox 07/28/24 07:57 37.3 C 75 16 154/81 H 98 07/28/24 07:40 69 07/28/24 07:39 76 20 93 07/28/24 05:06 75 18 143/87 H 92 07/28/24 04:00 37.0 C 71 18 149/82 H 96 07/27/24 23:00 36.9 C 79 18 118/75 93 07/27/24 22:02 79 O2 Del Method 07/28/24 07:57 Room Air 07/28/24 07:40 07/28/24 07:39 Room Air 07/28/24 05:06 Room Air 07/28/24 04:00 Room Air 07/27/24 23:00 Room Air 07/27/24 22:02 Laboratory Results Abnormal lab results 07/27/24 07/28/24 Range/Units 08:59 06:01 MPV 9.0 L (9.4-12.4) fL Sodium 135 L (136-145) mmol/L Creatinine 0.53 L 0.43 L (0.6-1.2) mg/dl Glucose 132 H 107 H (70-99(Fasting)) mg/dl B-Natriuretic Peptide 134 H (0-100) pg/ml Lipase 4 L (11-82) U/L
[2024-07-28] MEDS: HYDROmorphone HCL 2 MG TAB PO PRN (09:56)
[2024-07-28] MEDS: LIDOCAINE 5% 1 PATCH TD SCH (09:56)
[2024-07-28] MEDS: MAGNESIUM HYDROXIDE SUSP 30 ML UDC PO PRN (21:25)
--- NOTE | 2024-07-28 21:51 | Electrocardiogram Report ---
Test Reason : Blood Pressure : */* mmHG Vent. Rate : 74 BPM Atrial Rate : 74 BPM P-R Int : 140 ms QRS Dur : 72 ms QT Int : 378 ms P-R-T Axes : 48 31 14 degrees QTcB Int : 419 ms Poor data quality, interpretation may be adversely affected Sinus rhythm with Premature atrial complexes in a pattern of bigeminy Otherwise normal ECG When compared with ECG of 27-Jul-2024 08:44, Premature atrial complexes are now Present Confirmed by Alberto Hicks ([id number]) on 07/28/2024 9:51:15 PM Referred By: REFERRED SELF Confirmed By: Alberto Hicks
[2024-07-28] MEDS: ZOLPIDEM TARTRATE 5 MG TAB PO PRN (22:22)
[2024-07-29] MEDS: HYDROmorphone INJ 0.5 MG/0.5 ML SYR IV STA (02:39)
[2024-07-29] MEDS: LEVOTHYROXINE SODIUM 100 MCG TABLET PO SCH (05:53)
[2024-07-29 06:29] LABS: Hematocrit (blood only) 39.3 % (37.0-47.0); Hemoglobin 13.5 g/dl (12.0-16.0); Mean Corpuscular Hemoglobin 30.6 pg (25.0-34.0); Mean Corpuscular Hgb Conc 34.4 g/dL (32.0-36.0); Mean Corpuscular Volume 89.1 fL (80.0-100.0); Platelet Count 329 K/uL (130-400); RDW Coefficient of Variation 12.1 % (11.5-14.5); RDW Standard Deviation 38.9 fL (36.4-46.3); Red Blood Count 4.41 M/uL (4.20-5.40); White Blood Count 10.72 K/ul (4.8-10.8)
[2024-07-29 06:52] LABS: BUN Creatinine Ratio 21.1 (10-20); Calcium 8.9 mg/dl (8.6-10.3); Creatinine Clr Calc Pharmacy 89.1 ml/min; Est GFR (African American) 108.1 ml/min; Est GFR (Non-African American) 93.3 ml/min; Potassium 3.6 mmol/L (3.5-5.1)
--- NOTE | 2024-07-29 09:23 | Hospitalist Progress Note ---
Date of Service July 29, 2024 Assessment & Plan (1) Weak: Plan Weakness Patient reports not feeling well for several days, reports feeling weak. Respiratory pathogen panel negative Procal normal Reviewed Chest CT No signs of infection at this time Awaiting PT/OT. Increased upper back pain and neck pain: Recent diagnosis of metastatic small cell carcinoma of lung: Follows Dr Simomns. Patient diagnosed with SCC in mid May, prescribed Tagrisso but was not able to started due to insurance issue, finally got approved for the medicine and is awaiting for the medicine to arrive. 06/17/[address] SKULL BASE TO MID-THIGH FDG 1. Emphysema. 3 (CC) x 2.4 (AP) x 2.0 (TV) cm metabolically-active solid mass within the left lung apex, compatible with primary lung cancer. 2. Extensive metabolically-active mediastinal lymph node metastases. 3. Metabolically-active left lung pleural invasion and metastases. Small left malignant pleural effusion. Reviewed CTA chest which showed mild progression of metastatic disease from June 10 2024, lymphadenopathy, increase in size of small malignant left effusion, increase in size of left apical mass. No PE Cervical MRI did not show any metastastic disease, stable postop findings of C4- C7 anterior discectomy and fusion, unchanged mild central canal stenosis at C3-4 Thoracic MRI did not show any metastatic disease, No fractures. Mild to moderate multilevel DDD and facet arthrosis Patient is on dilaudid po at home Had increased po dilaudid 2mg q4H prn yesterday and iv dilaudid for severe pain Patient's worsening pain is likely due to progression of lung cancer in addition to chronic neck/back pain from degenerative disc disease Continue baclofen Will consult Pain management to assist with pain control Patient reports her chemo medication is supposed to be delivered by [facility] at her apartment today. She is trying to work with [facility] to see if someone can pick it up for her Chronic cough, History of mod persistent asthma: Cough likely worsened with cancer progression Continue nebs, prednisone Continue antitussives History of PE: Patient reports history of PE in 2001 postoperatively. Patient reports she was never put on any blood thinner. Not on any blood thinner currently. PE negative this time. Other chronic medical condition: HTN, HLD, hypothyroidism etc. ---> continue home meds as when able. DVT prophylaxis: Heparin subcu DNR/DNI I spent a total of 45 minutes coordinating, documenting and providing care for this patient excluding time spent in performance of separately billed services Admission and Anticipated Discharge Date Admission Date: July 27, 2024 Subjective Patient seen and examined Reported pain initially improved with med adjustments yesterday but then got worse again last evening Currently reports severe chest pain randy on left side, neck and upper back pain; worse with movement and sometimes deep breath Reports cough is better controlled today Still reports weakness Denied nausea, vomiting, abd pain, diarrhea Denied fever, chills, dysuria, freq, urgency Physical Exam Constitutional: + well hydrated; no acute distress Eyes: PERRL, conjunctivae normal, anicteric sclerae ENMT: external ear and nose normal, oropharynx normal Respiratory: normal respiratory effort, lungs clear to auscultation Cardiovascular: Rate/Rhythm: regular rate and regular rhythm Gastrointestinal (Abdomen): normal bowel sounds, soft, nontender, no hepatosplenomegaly Musculoskeletal: No pedal edema Neurologic: PERRL, EOMI, accommodation nl, no face palsy, no dysarthria Psychiatric: A+Ox3, euthymic affect Results & Data Results & Data Vital Signs (Past 12 Hours) Vital Signs Temp Pulse Pulse Resp BP Pulse Ox O2 Del Method 07/29/24 07:54 37 C 80 18 131/75 94 Room Air 07/29/24 07:52 86 16 92 Room Air 07/29/24 07:31 70 07/29/24 02:40 36.4 C L 77 20 146/85 H 94 Room Air 07/28/24 23:28 75 07/28/24 22:20 36.8 C 76 18 155/88 H 92 Room Air Laboratory Results Abnormal lab results 07/29/24 Range/Units 05:41 MPV 9.0 L (9.4-12.4) fL Sodium 135 L (136-145) mmol/L Creatinine 0.57 L (0.6-1.2) mg/dl BUN/Creatinine Ratio 21.1 H (10-20)
[2024-07-30] MEDS: HYDROmorphone INJ 0.5 MG/0.5 ML SYR IV STA (01:10)
[2024-07-30] MEDS: DICLOFENAC SOD 1% GEL 100 GM TUBE EXT PRN (03:48)
[2024-07-30 06:37] LABS: Hematocrit (blood only) 38.5 % (37.0-47.0); Hemoglobin 12.9 g/dl (12.0-16.0); Mean Corpuscular Hemoglobin 29.7 pg (25.0-34.0); Mean Corpuscular Hgb Conc 33.5 g/dL (32.0-36.0); Mean Corpuscular Volume 88.5 fL (80.0-100.0); Mean Platelet Volume 8.9 fL (9.4-12.4); Platelet Count 317 K/uL (130-400); RDW Coefficient of Variation 11.9 % (11.5-14.5); RDW Standard Deviation 38.5 fL (36.4-46.3); Red Blood Count 4.35 M/uL (4.20-5.40); White Blood Count 11.28 K/ul (4.8-10.8)
[2024-07-30 06:54] LABS: BUN Creatinine Ratio 21.4 (10-20); Calcium 8.5 mg/dl (8.6-10.3); Creatinine Clr Calc Pharmacy 90.7 ml/min; Est GFR (African American) 108.7 ml/min; Est GFR (Non-African American) 93.8 ml/min
[2024-07-30] MEDS ORDERED: HYDROCODONE/ACETAMOPHEN 5/325MG TAB PO PRN (08:47)
[2024-07-30] MEDS: KETOROLAC 30 MG/ML VIAL ONE (08:54)
[2024-07-30] MEDS: TRIAMCINOLONE ACET 40 MG/ML VIAL ONE (08:54)
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
[2024-07-30] MEDS: BACLOFEN 20 MG TAB PO SCH (08:58)
[2024-07-30] MEDS ORDERED: methylPREDNISolone 4 MG TAB, 6 DAY TAPER PO SCH (09:00)
[2024-07-30] MEDS: MoRPHine SULFATE CR 15 MG TABCR PO SCH (09:54)
[2024-07-30] MEDS: methylPREDNISolone 4 MG TAB PO SCH (13:09)
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
[2024-07-31] MEDS: methylPREDNISolone 4 MG TAB PO SCH (06:10)
[2024-07-31 06:28] LABS: Basophils # (auto) 0.01 K/uL (0.00-0.20); Basophils % (auto) 0.1 %; Hematocrit (blood only) 36.9 % (37.0-47.0); Hemoglobin 13.2 g/dl (12.0-16.0); Immature Granulocytes # (auto) 0.05 K/uL (0.01-0.20); Immature Granulocytes % (auto) 0.5 %; Lymphocytes # (auto) 1.14 K/uL (1.20-3.40); Lymphocytes % (auto) 11.1 %; Mean Corpuscular Hemoglobin 31.5 pg (25.0-34.0); Mean Corpuscular Hgb Conc 35.8 g/dL (32.0-36.0); Mean Corpuscular Volume 88.1 fL (80.0-100.0); Mean Platelet Volume 9.1 fL (9.4-12.4); Monocytes # (auto) 0.64 K/uL (0.11-0.59); Monocytes % (auto) 6.2 %; Neutrophils # (auto) 8.45 K/uL (1.40-6.50); Neutrophils % (auto) 82.1 %; Platelet Count 370 K/uL (130-400); RDW Coefficient of Variation 11.8 % (11.5-14.5); RDW Standard Deviation 38.1 fL (36.4-46.3); Red Blood Count 4.19 M/uL (4.20-5.40); White Blood Count 10.29 K/ul (4.8-10.8)
[2024-07-31 06:41] LABS: Calcium 8.9 mg/dl (8.6-10.3); Creatinine Clr Calc Pharmacy 87.5 ml/min; Est GFR (African American) 107.5 ml/min; Est GFR (Non-African American) 92.7 ml/min; Magnesium 2.6 mg/dl (1.7-2.4); Phosphorus 4.5 mg/dl (2.5-4.9); Potassium 4.9 mmol/L (3.5-5.1)
--- NOTE | 2024-07-31 08:18 | Pain Management Progress Note ---
Date of Service July 31, 2024 Assessment & Plan (1) Cervicalgia: (2) Myofascial pain: (3) Hx of fusion of cervical spine: (4) Lung cancer: Laterality: left Lung location: upper lobe of lung Qualified Code(s): C34.12 - Malignant neoplasm of upper lobe, left bronchus or lung Plan 1. Currently pleased with relief patient experiencing status post a trigger point injection completed at yesterday's visit. Expectations were discussed. We did discuss injection site soreness. Her candidacy for repeat trigger point injections in the future was discussed and she verbalized understanding. 2. Would recommend patient continue with Medrol Dosepak, baclofen 20 mg 3 times daily, MS Contin 15 mg every 12 hours and hydrocodone for as needed breakthrough pain 3. Patient may follow-up in outpatient pain clinic for evaluation as needed. Pain service will sign off on patient at this time. Admission and Anticipated Discharge Date Admission Date: July 27, 2024 Subjective Mrs. Rankin reporting significant reduction in neck pain with improved range of motion 30-45 minutes after undergoing cervical trigger point injections at yesterday's visit. She is continue to have minimal axial neck pain over the past 24 hours. She has not utilized any IV hydromorphone or p.o. hydrocodone for breakthrough pain over the past 24 hours. She describes ongoing difficulties with aching and stiffness but no sharp pains and no significant limitation with range of motion. She rates her residual pain a 0-4/10. She is extremely pleased with the relief she has experienced from the trigger point injections. She is tolerating the medication adjustments without notable side effects. Patient reported that the c-collar was uncomfortable so she is not utilizing. She continues to deny any radicular pattern to her pain complaints. She denies weaknesses in the upper extremity or dropping of objects. She was out of bed most of the day yesterday moving about the room without limitation. Patient is extremely pleased with her current level of symptom control and believe that she will be ready for discharge today. Patient has no further constitutional complaints. Plan of care discussed with Dr. Ana Leal. Pain Assessment Pain Assessment Full Body Front + Back: 2 1. Right-sided axial neck pain extending into the shoulder and scapular region 2. Left-sided axial neck pain extending into the shoulder and scapular region Pain scale - at its best (0-10): 0 Pain scale - at its worst (0-10): 4 Physical Exam 2 Physical Exam: General: Patient was sleeping upon entering the room. She was easily awakened. Speech and thought process appropriate. Mood and affect appropriate. Cognition intact. Head/neck: Patient with improved range of motion compared to yesterday. She has no evidence of edema, erythema or skin breakdown at site of the trigger point injections. She does continue with some generalized tenderness to palpation in the trapezius musculature with minimal residual spasm. Upper extremities: Strength testing 5/5 with handgrip and opposition. Jailyn sign negative. Sensation intact. Neurologic: Cranial nerves grossly intact. Ambulation not witnessed.
--- NOTE | 2024-07-31 09:38 | Palliative Care Consultation ---
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 compromised by motion artifact. There are postoperative findings consistent with T12 kyphoplasty. No additional thoracic spine fractures are present. There is no suspicious marrow replacement within the thoracic spine. Discogenic changes are noted at multiple levels. There is no intracanalicular mass, fluid collection or abnormal enhancement. No large disc herniations are present. There is mild multilevel neural foraminal stenosis. Left lower cervical, mediastinal and left hilar lymphadenopathy is present. A left apical lesion and a small left pleural effusion are present. These findings are better depicted on same-day chest CT. IMPRESSION: 1. No evidence for metastatic disease within the thoracic spine. No suspicious osseous lesions. 2. No acute thoracic spine fractures. Status post T12 kyphoplasty. 3. Mild to moderate multilevel degenerative disc disease and facet arthrosis within the thoracic spine. No severe central canal stenosis. Exam mildly compromised by motion artifact. 4. Lymphatic and left pleural metastatic disease with a small left pleural effusion. Findings better depicted on same-day chest CT. ACT 112: Negative or not required by law. Electronically signed by: Arsen Dominguez M.D. 07/27/2024 4:34 PM PG Care Time/CCT Total # of Minutes Spent Total Time Spent with Patient: Total time spent is greater than 50% in coordination of care (as documented) at patient's floor/unit and/or counseling patient: I spent 135 minutes overall addressing this case: 25min in medical data review/discussion with referring provider(s) and/or preparation for the visit incl OSH data review/[facility] [employer] EMR link 15 min in direct interaction with the patient/exam 60 min in Advance Care Planning/Goals of Care discussions as detailed above in note (must be >16min) 15 min in subsequent review and synthesis of assessment and plan 20 min communicating with other providers regarding the patie nt's case: primary team and heme onc/Dr Simmons. Advanced Care Planning 35740 Advanced Care Planning 30 Min 21686 Advanced Care Planning Additional 30 [place] [address] IN/OBS CONSULT LVL 5,80M (25 - SIGNIFICANT, SEPARATELY IDENTIFIABLE ) Patient Type New Medical Decision Making High Complexity Diagnoses Cancer related pain G89.3 Anxiety associated with cancer diagnosis F41.1; C80.1 Weakness generalized R53.1 Palliative care by specialist Z51.5 Advanced care planning/counseling discussion Z71.89 Primary lung squamous cell carcinoma C34.90 Additional Codes Advanced Care Planning - 35166 Advanced Care Planning 30 Min: 03288 Advanced Care Planning 30 Min ([id number]) Advanced Care Planning - 35614 Advanced Care Planning Additional 30 Min: 71500 Advanced Care Planning Additional 30 Min ([id number])
[2024-07-31 11:31] VITALS: RESP 20
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
[2024-07-31 15:15] VITALS: BP 133/79; PULSE 70; TEMP 98.2; O2SAT 93
[2024-07-31] MEDS ORDERED: methylPREDNISolone 4 MG TAB PO SCH (21:00)
[2024-08-01] MEDS ORDERED: methylPREDNISolone 4 MG TAB PO SCH (07:00)
[2024-08-02] MEDS ORDERED: methylPREDNISolone 4 MG TAB PO SCH (07:00)
[2024-08-03] MEDS ORDERED: methylPREDNISolone 4 MG TAB PO SCH (07:00)
[2024-08-04] MEDS ORDERED: methylPREDNISolone 4 MG TAB PO SCH (07:00)
== END 2024-07-31 17:06 | disposition home health service (06) | DRG 181 ==
LOC: ED 08:30 → 2W 12:59 → SUATTDRO 12:59 → 2W 16:22

== ENCOUNTER 2024-09-08 12:01 | Inpatient (IN) ==
[2024-09-08 12:45] LABS: Basophils # (auto) 0.05 K/uL (0.00-0.20); Basophils % (auto) 0.4 %; Eosinophils # (auto) 0.54 K/uL (0.00-0.50); Eosinophils % (auto) 4.7 %; Hematocrit (blood only) 41.6 % (37.0-47.0); Immature Granulocytes # (auto) 0.04 K/uL (0.01-0.20); Immature Granulocytes % (auto) 0.4 %; Lymphocytes # (auto) 1.25 K/uL (1.20-3.40); Mean Corpuscular Hemoglobin 29.8 pg (25.0-34.0); Mean Corpuscular Hgb Conc 33.7 g/dL (32.0-36.0); Mean Corpuscular Volume 88.5 fL (80.0-100.0); Mean Platelet Volume 9.4 fL (9.4-12.4); Monocytes # (auto) 1.05 K/uL (0.11-0.59); Monocytes % (auto) 9.2 %; Neutrophils # (auto) 8.48 K/uL (1.40-6.50); Neutrophils % (auto) 74.3 %; Platelet Count 333 K/uL (130-400); RDW Standard Deviation 42.2 fL (36.4-46.3); White Blood Count 11.41 K/ul (4.8-10.8)
[2024-09-08 12:57] LABS: Alanine Aminotransferase 9 U/L (7-52); Albumin Globulin Ratio 1.2 (0.9-2); Albumin Level 3.9 gm/dl (3.4-5.0); Alkaline Phosphatase 62 U/L (34-104); Anion Gap 8 (3-11); Aspartate Aminotransferase 16 U/L (13-39); BUN Creatinine Ratio 14.8 (10-20); Bilirubin,Total 0.5 mg/dl (0.2-1.0); Blood Urea Nitrogen 9 mg/dl (6-23); Calcium 9.6 mg/dl (8.6-10.3); Carbon Dioxide 26 mmol/L (21-32); Chloride 99 mmol/L (98-107); Globulin 3.3 gm/dl (2.5-4.0); Glucose 124 mg/dl (70-99(Fasting)); Potassium 4.4 mmol/L (3.5-5.1); Sodium 133 mmol/L (136-145); Total Protein 7.2 gm/dl (6.0-8.3)
[2024-09-08 14:15] LABS: Creatine Kinase 49 U/L (26-192); Magnesium 1.8 mg/dl (1.7-2.4)
[2024-09-08] MEDS: HYDROmorphone INJ 0.5 MG/0.5 ML SYR IV PRN ×2 (15:12→21:59)
[2024-09-08] MEDS: OPTIRAY 320 100ml IV ONE (15:42)
[2024-09-08 15:58] LABS: Appearance Urine Clear (Clear); Bacteria Urine Automated None Seen (None Seen); Bilirubin Urine Negative (Negative); Blood Urine Negative (Negative); Cast Urine Automated 0-2 /lpf (0-2); Color Urine Yellow; Epithelial Cell Urine Auto 0-2 /hpf (0-2); Glucose Urine UA Negative (Negative); Ketones Urine 1+ (Negative); Leukocyte Esterase Urine Trace (Negative); Nitrite Urine Negative (Negative); Protein Urine Negative (Negative); RBC Urine Automated 0-2 /hpf (0-2); Specific Gravity Urine 1.017 (1.000-1.030); Urobilinogen Urine Negative (Negative); WBC Urine Automated 0-5 /hpf (0-5)
--- NOTE | 2024-09-08 16:05 | CT Scan Report ---
CT OF THE ABDOMEN AND PELVIS WITH CONTRAST CLINICAL HISTORY: Left flank and abdominal pain. Metastatic lung cancer, constipation. COMPARISON STUDY: CT of the abdomen and pelvis June 10, 2024. Chest CT July 27, 2024. TECHNIQUE: Following IV administration of 92 mL of Optiray, axial images of the abdomen and pelvis we re obtained from the lung bases to the proximal femurs. Images were reviewed in the axial, sagittal, and coronal planes. IV contrast was administered without complication. Automated exposure control wa s utilized for the study. A dose lowering technique was utilized adhering to the principles of ALARA . CT DOSE: 1259.02 mGy.cm FINDINGS: A small left pleural effusion is noted. Multifocal enhancing pleural thickening within the left hemithorax has increased since abdominal CT of June 10, [address] of July 27, 2024. No fractures or areas of bony erosion within the visualized lower ribs are identified. The spleen, ad renal glands, kidneys and pancreas are unremarkable. There are no hepatic lesions. There is no biliar y or pancreatic ductal dilatation. There is no hydronephrosis. There is no evidence for a bowel obstr uction status post sigmoid resection. There is colonic diverticulosis without evidence for acute dive rticulitis. No abdominal or pelvic lymphadenopathy is present. There are are no fluid collections wit hin the abdomen or pelvis. No urinary calculi are present. There is no hydronephrosis. Pelvic calcifi cations represent phleboliths. Status post T12 kyphoplasty. Probable hemangioma within the L2 vertebr al body is noted. Status post L5-S1 discectomy, decompression and fusion. IMPRESSION: 1. Increase in pleural metastatic disease within the left hemithorax since prior abdominal CT and [address] [facility] CT, as described above. Small malignant left pleural effusion. 2. No acute process within the abdomen or pelvis. No bowel obstruction. No bowel wall thickening. 3. No evidence for metastatic disease within the abdomen or pelvis. 4. No urinary calculi or hydronephrosis. ACT 112: Negative or not required by law. Electronically signed by: Arsen Dominguez M.D. 09/08/2024 4:02 PM
[2024-09-08] MEDS ORDERED: LORazepam 0.5 MG TAB PO PRN (18:34)
[2024-09-08] MEDS ORDERED: ALBUTEROL HFA 8 GM INHALER INH PRN (18:34)
[2024-09-08] MEDS ORDERED: ALBUT/IPRATROP 3MG/0.5MG NEB 3 ML VIAL INH PRN (18:34)
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
[2024-09-08] MEDS: POLYETHYLENE (MIRALAX) 17 GM PACK PO SCH (19:04)
--- NOTE | 2024-09-08 19:10 | Emergency Department Note ---
Impression & Plan Acute left flank pain, Myofascial pain, Cancer related pain, Primary lung squamous cell carcinoma, Acute generalized abdominal pain ED Provider Note NAME: SHONA HOLLAND AGE: 69 SEX: Female INFORMANT: Patient ED PROVIDER(S): Cj Estrada MD CHIEF COMPLAINT: Generalized muscle pain and abdominal pain PLAN: Disposition: Admitted Outpatient prescription management: none Referral: None MEDICAL DECISION MAKING: Patient presented because of abdominal pain and generalized muscle pain. Workup was initiated. She was treated symptomatically with Dilaudid and Zofran. She did require second dose for some relief. Patient had an unremarkable CBC and chemistry panel. Urinalysis did not reveal any sign of infection. No hematuria. CT imaging of the abdomen pelvis revealed no acute intra-abdominal process. No nephrolithiasis or hydronephrosis. Patient was noted to have advancing cancer in the left side as well as left-sided pleural effusion. This may explain some of the left flank pain. No obvious etiology for the right sided abdominal tenderness on examination. Patient had a negative total CK. She notes that this feels similar to her last admission but actually worse. She is concerned she will not be able to function at home. Discussed treatment in the hospital and the patient is in agreement. [facility] Patient was evaluated in the ER and admitted for further management. Care/management discussed with: enterprise systems manager Level of care consideration(s): After review of the information above and other included data, I feel the patient requires escalation of care to admission Triage Nursing notes: reviewed and agree them. Vital Signs: reviewed and remarkable for hypertension Additional History obtained from: none Chronic Medical/Social Conditions affecting care: Metastatic lung cancer Prior/ Outside/ External records reviewed: none Differential Diagnosis: Complication of cancer,Renal colic, UTI, appendicitis, diverticulitis, mesenteric ischemia, aortic pathology, infections, inflammatory bowel disease, PUD, biliary pathology, as well as other pathologies. Diagnostics, independently interpreted by me: ECG:Twelve-lead ECG reveals normal sinus rhythm at 91 beats per minute.No evidence of pericarditis, ischemia, ectopy, or dysrhythmia. Nonspecific ST abnormality. Cardiac Monitoring: Cardiac monitoring ordered by me: The patient was placed on continuous cardiac monitoring and observed. It revealed a normal sinus rhythm at 82 beats per minute without ectopy or evidence of dysrhythmia. Medical decision rules: none Imaging studies: CT scan reveals left-sided pleural effusion and negative for kidney stone, obstruction, or acute intra-abdominal process. I refer you to the EMR for further details. HPI: 69 year old Female arrives for evaluation of generalized myalgias and abdominal pain. Patient notes that she Currently under palliative care for metastatic lung cancer. She had a previous admission for weakness and muscle pain that was related to her cancer. Patient states that over the last few days she has noted significant cramping/spasms in her legs. She has been using Dilaudid and baclofen. She also notes constipation and is using MiraLAX daily for this. She had some nausea and vomiting. She has pain in the left flank as well as in the right side of her abdomen. Pt denies LOC, headache, fevers, chills, diaphoresis, visual changes, neck pain, chest pain, breathing difficulties, melena, hematochezia, urinary symptoms, numbness, weakness, lymphadenopathy, rash, or other complaints. PAST MEDICAL HISTORY: See Below, metastatic lung cancer PAST SURGICAL HISTORY: See Below, SOCIAL HISTORY: See Below, retired HOME MEDICATIONS: See Below ALLERGIES: See Below VITALS: See Below PHYSICAL EXAMINATION: GENERAL: Awake, alert, uncomfortable-appearing, in no distress HENT: Normocephalic, atraumatic. Oropharynx unremarkable. EYES: Normal conjunctiva. Sclera non-icteric. NECK: Inspection normal. Non-tender. Supple. No nuchal rigidity. FROM. No masses. RESPIRATORY: Clear to auscultation. No wheezes. No rales. Normal respiratory effort. CARDIAC: Normal rate. Normal rhythm. No murmurs. No rubs. Extremities warm and well perfused. Pulses equal. No JVD. GI: Soft, non-distended. Right lower and left flank tenderness to palpation. No rebound or guarding. No masses. RECTAL: Deferred. MUSCULOSKELETAL: Atraumatic. Chest examination reveals no tenderness. The back is symmetrical on inspection without obvious abnormality. There is left CVA tenderness to palpation. No joint edema. LOWER EXTREMITIES: Calves are equal size bilaterally and non-tender. No edema. No discoloration. NEURO: Normal sensorium. No sensory or motor deficits noted. SKIN: No rash or jaundice noted. PROCEDURES: none CRITICAL CARE: none OBSERVATION NOTE: none Past Med/Surg History Problem List (Updated 09/08/24 @ 19:09 by Cj Estrada MD) Acute generalized abdominal pain (Acute) Acute left flank pain (Acute) Dyspnea and respiratory abnormalities Drug-induced skin rash Nausea Anxiety associated with cancer diagnosis Anxiety Primary lung squamous cell carcinoma (Acute) Advanced care planning/counseling discussion Palliative care by specialist Weakness generalized Cancer related pain (Acute) Myofascial pain (Acute) Cervicalgia Lung cancer (Acute) Weak Chest pain (Acute) SOB (shortness of breath) (Acute) Epicondylitis, lateral, right Rotator cuff tear, left Abdominal pain (Acute) Diverticulitis Lumbar radiculopathy (Acute) Spondylisthesis (Acute 03/24/14) Urinary problem URINARY LEAKAGE Osteomyelitis (Acute) Discitis (Acute) Lymphadenopathy Tinnitus of both ears Sensorineural hearing loss of both ears Arthritis Gout Adverse reaction to anesthetic agent Unable to come out of it for 3 days Rhinitis GERD (gastroesophageal reflux disease) Encounter for pre-operative examination HLD (hyperlipidemia) (Chronic) GERD (gastroesophageal reflux disease) (Chronic) S/P colon resection (Chronic) chronic diverticulits Hx of fusion of cervical spine (Chronic) (at least 3 levels fused together) Full ROM S/P lumbar fusion (Chronic) Pneumonia hx Bronchitis hx Asthma (Chronic) inhalers prn High blood pressure (Chronic) Irritable colon (Chronic Unknown) Medical History Incomplete rotator cuff tear or rupture of left shoulder, not specified as traumatic Encounter for pre-operative examination Intractable back pain Compression fracture of T12 vertebra Prediabetes RECENT NEW SCRIPT FOR METFORMIN Hx of Clostridium difficile infection APPROX 5 YRS AGO Hx of discitis treated at [facility] (2019) Hx of deep venous thrombosis ~2019 Pulmonary embolism hx of 2006 Pseudogout Hypothyroidism Chronic back pain Osteoarthritis Abdominal hernia no surgery Peripheral neuropathy Migraine hx Chronic obstructive pulmonary disease mild Sleep apnea NO MACHINE Surgical History History of right cataract surgery SEP 2020 History of anesthesia reaction EXTREMELY SLOW TO WAKE UP (COLON RESECTION) History of dilatation and curettage History of total abdominal hysterectomy and bilateral salpingo-oophorectomy History of carpal tunnel release RT History of bunionectomy RT FOOT History of appendectomy History of esophagogastroduodenoscopy (EGD) History of colonoscopy History of tooth extraction History of tonsillectomy History of adenoidectomy S/P ablation of atrial fibrillation ~2014 Family History Mother Family history of esophageal cancer Hearing loss Father Hearing loss Brother Hearing loss Other Cancer Gallbladder disease Heart disease Hypertension Lung disease No family history of adverse response to anesthesia No family history of bleeding disorder Stroke Social History Smoking Status: Former smoker Tobacco Type: Cigarettes Second Hand Exposure: No; Do You Dip or Chew Tobacco: No; Hx Alcohol Use: Yes Alcohol type: wine Hx Substance Use: No Preferred Language: Thai Communication Ability: Effective Stencil Inspector Required: No Beliefs That Will Affect Care: Spiritual Current Living Situation: Alone current occupational status: retired Feels Safe at Home: Yes Assistive Devices: Glasses Allergies Allergies Allergy/AdvReac Type Severity Reaction Status Date / Time losartan Allergy Severe SWELLING Verified 06/10/24 16:18 OF FACE, LIPS & TONGUE Penicillins Allergy Severe SWELLING Verified 06/10/24 16:18 OF FACE, LIPS & TONGUE fentanyl Allergy Intermediate itching Verified 06/10/24 16:18 oxycodone Allergy Intermediate ITCHING Verified 06/10/24 16:18 ALL OVER tramadol AdvReac Severe Hallucinati Verified 06/10/24 16:18 ons Sulfa (Sulfonamide AdvReac Intermediate URNIARY Verified 06/10/24 16:18 Antibiotics) FREQUENCY sulfamethoxazole AdvReac Intermediate URNIARY Verified 06/10/24 16:18 FREQUENCY topiramate AdvReac Intermediate Blurry Verified 06/10/24 16:18 Vision metronidazole AdvReac Mild STOMACH Verified 06/10/24 16:18 PAIN trimethoprim AdvReac Mild URINARY Verified 06/10/24 16:18 FREQUENCY Home Meds Home Medications Medication Instructions Recorded Confirmed acyclovir 400 mg tablet 400 mg PO TID PRN Cold Sore(s) 08/22/18 09/08/24 albuterol sulfate 90 mcg/actuation 2 puff inhalation Q4H PRN Wheezing 08/22/18 09/08/24 aerosol inhaler (Ventolin HFA) levothyroxine 100 mcg tablet 100 mcg PO DAILYBB 08/22/18 09/08/24 lisinopril 20 mg tablet 20 mg PO DAILY 07/07/21 09/08/24 alirocumab 75 mg/mL subcutaneous 75 mg subcut .[id number] 09/19/23 09/08/24 pen injector (Praluent Pen) aspirin 81 mg tablet,delayed 81 mg PO DAILY 09/19/23 09/08/24 release cholecalciferol (vitamin D3) 25 25 mcg PO DAILY 09/19/23 09/08/24 mcg (1,000 unit) capsule famotidine 20 mg tablet 20 mg PO BID 09/19/23 09/08/24 ipratropium 0.5 mg-albuterol 3 mg 3 ml inhalation Q6H PRN Wheezing 09/19/23 09/08/24 (2.5 mg base)/3 mL nebulization soln baclofen 10 mg tablet 20 mg PO TID 06/10/24 09/08/24 doxycycline hyclate 100 mg capsule 100 mg PO UD tegresso rash, lung ca 09/08/24 09/08/24 hydrochlorothiazide 12.5 mg capsule 12.5 mg PO UD 09/08/24 09/08/24 lorazepam 0.5 mg tablet (Ativan) 0.5 mg PO Q6H PRN anxiety, 09/08/24 09/08/24 insomnia, nausea from cancer osimertinib 80 mg tablet (Tagrisso) 80 mg PO PM 09/08/24 09/08/24 zolpidem 10 mg tablet 10 mg PO HS 09/08/24 09/08/24 Previous Rx's Medication Instructions Recorded hydromorphone 4 mg tablet 4 mg PO Q4H PRN pain 1 month #90 07/31/24 (Dilaudid) tabs Results & Data (ED) Vital Signs Vital Signs - 24 hr 09/08/24 12:07 09/08/24 13:49 09/08/24 13:50 Temperature 36.8 C Temperature Source Temporal Artery Scan Pulse Rate 98 H 88 101 H Pulse Rate [Right Finger] Pulse Rhythm [Right Finger] Pulse Strength [Right Finger] Respiratory Rate 18 16 Respiratory Effort / Characteristics Non-Labored Spontaneous Respiratory Depth Normal Respiratory Pattern Blood Pressure 148/81 H 158/103 H Blood Pressure [Left Arm] Blood Pressure Mean 103 121 Blood Pressure Mean [Left Arm] Blood Pressure Position Sitting Pulse Oximetry 96 97 Oxygen Delivery Method Room Air Room Air Sepsis Recent Fever Within 48 Hours No Sepsis New/Unexplained Change in Mental Status N/A Sepsis Action Taken by Nursing No Action Required 09/08/24 15:12 09/08/24 18:16 Temperature Temperature Source Pulse Rate 82 Pulse Rate [Right Finger] 84 Pulse Rhythm [Right Finger] Regular Pulse Strength [Right Finger] Normal Respiratory Rate 17 Respiratory Effort / Characteristics Non-Labored Respiratory Depth Normal Respiratory Pattern Regular Blood Pressure Blood Pressure [Left Arm] 149/93 H Blood Pressure Mean Blood Pressure Mean [Left Arm] 111 Blood Pressure Position Pulse Oximetry 95 Oxygen Delivery Method Room Air Sepsis Recent Fever Within 48 Hours Sepsis New/Unexplained Change in Mental Status Sepsis Action Taken by Nursing Laboratory Data 09/08/24 12:18 09/08/24 12:18 Lab Results 09/08/24 09/08/24 Range/Units 12:18 15:45 WBC 11.41 H (4.8-10.8) K/ul RBC 4.70 (4.20-5.40) M/uL Hgb 14.0 (12.0-16.0) g/dl Hct 41.6 (37.0-47.0) % MCV 88.5 (80.0-100.0) fL MCH 29.8 (25.0-34.0) pg MCHC 33.7 (32.0-36.0) g/dL RDW Std Deviation 42.2 (36.4-46.3) fL RDW Coeff of Viky 13.0 (11.5-14.5) % Plt Count 333 (130-400) K/uL MPV 9.4 (9.4-12.4) fL Immature Gran % (Auto) 0.4 % Neut % (Auto) 74.3 % Lymph % (Auto) 11.0 % [place] % (Auto) 9.2 % Eos % (Auto) 4.7 % Baso % (Auto) 0.4 % Neut # (Auto) 8.48 H (1.40-6.50) K/uL Lymph # (Auto) 1.25 (1.20-3.40) K/uL [place] # (Auto) 1.05 H (0.11-0.59) K/uL Eos # (Auto) 0.54 H (0.00-0.50) K/uL Baso # (Auto) 0.05 (0.00-0.20) K/uL Immature Gran # (Auto) 0.04 (0.01-0.20) K/uL Sodium 133 L (136-145) mmol/L Potassium 4.4 (3.5-5.1) mmol/L Chloride 99 (98-107) mmol/L Carbon Dioxide 26 (21-32) mmol/L Anion Gap 8 (3-11) BUN 9 (6-23) mg/dl Creatinine 0.61 (0.6-1.2) mg/dl Est Cr Clr Drug Dosing Not Reportable eGFR 95.52 BUN/Creatinine Ratio 14.8 (10-20) Glucose 124 H (70-99(Fasting)) mg/dl Calcium 9.6 (8.6-10.3) mg/dl Magnesium 1.8 (1.7-2.4) mg/dl Total Bilirubin 0.5 (0.2-1.0) mg/dl AST 16 (13-39) U/L ALT 9 (7-52) U/L Alkaline Phosphatase 62 (34-104) U/L Total Creatine Kinase 49 (26-192) U/L Total Protein 7.2 (6.0-8.3) gm/dl Albumin 3.9 (3.4-5.0) gm/dl Globulin 3.3 (2.5-4.0) gm/dl Albumin/Globulin Ratio 1.2 (0.9-2) Urine Color Yellow Urine Appearance Clear (Clear) Urine pH 6.0 (4.5-7.5) Ur Specific [place] 1.017 (1.000-1.030) Urine Protein Negative (Negative) Urine Glucose (UA) Negative (Negative) Urine Ketones 1+ H (Negative) Urine Blood Negative (Negative) Urine Nitrite Negative (Negative) Urine Bilirubin Negative (Negative) Urine Urobilinogen Negative (Negative) Ur Leukocyte Esterase Trace H (Negative) Urine WBC (Auto) 0-5 (0-5) /hpf Urine RBC (Auto) 0-2 (0-2) /hpf U Hyaline Cast (Auto) 0-2 (0-2) /lpf U Epithel Cells (Auto) 0-2 (0-2) /hpf Urine Bacteria (Auto) None Seen (None Seen) Administered Medications Hydromorphone HCl (Hydromorphone Inj 0.5 Mg/0.5 Ml Syr) 0.5 mg IV Q15M PRN PRN Reason: Pain Stop: 09/22/24 15:07 Last Admin: 09/08/24 19:06 Dose: 0.5 mg Documented By: Admin: 09/08/24 16:41 Dose: 0.5 mg Documented By: Admin: 09/08/24 15:12 Dose: 0.5 mg Documented By: DAVID Polyethylene Glycol (Polyethylene (Miralax) 17 Gm Pack) 17 gm PO DAILY CALE Stop: 10/08/24 18:59 Last Admin: 09/08/24 19:04 Dose: 17 gm Documented By: DAVID Discontinued Medications Ioversol (Optiray 320 100ml) 92 ml IV ONCE ONE Stop: 09/08/24 15:43 Last Admin: 09/08/24 15:42 Dose: 92 ml Documented By: [facility] Imaging Data Radiologist's Impression: Abdomen/Pelvis CT 09/08/24 14:34 CT OF THE ABDOMEN AND PELVIS WITH CONTRAST CLINICAL HISTORY: Left flank and abdominal pain. Metastatic lung cancer, constipation. COMPARISON STUDY: CT of the abdomen and pelvis June 10, 2024. Chest CT July 27, 2024. TECHNIQUE: Following IV administration of 92 mL of Optiray, axial images of the abdomen and pelvis were obtained from the lung bases to the proximal femurs. Images were reviewed in the axial, sagittal, and coronal planes. IV contrast was administered without complication. Automated exposure control was utilized for the study. A dose lowering technique was utilized adhering to the principles of ALARA. CT DOSE: 1259.02 mGy.cm FINDINGS: A small left pleural effusion is noted. Multifocal enhancing pleural thickening within the left hemithorax has increased since abdominal CT of June 10, [address] of July 27, 2024. No fractures or areas of bony erosion within the visualized lower ribs are identified. The spleen, adrenal glands, kidneys and pancreas are unremarkable. There are no hepatic lesions. There is no biliary or pancreatic ductal dilatation. There is no hydronephrosis. There is no evidence for a bowel obstruction status post sigmoid resection. There is colonic diverticulosis without evidence for acute diverticulitis. No abdominal or pelvic lymphadenopathy is present. There are are no fluid collections within the abdomen or pelvis. No urinary calculi are present. There is no hydronephrosis. Pelvic calcifications represent phleboliths. Status post T12 kyphoplasty. Probable hemangioma within the L2 vertebral body is noted. Status post L5-S1 discectomy, decompression and fusion. IMPRESSION: 1. Increase in pleural metastatic disease within the left hemithorax since prior abdominal CT and chest CT, as described above. Small malignant left pleural effusion. 2. No acute process within the abdomen or pelvis. No bowel obstruction. No bowel wall thickening. 3. No evidence for metastatic disease within the abdomen or pelvis. 4. No urinary calculi or hydronephrosis. ACT 112: Negative or not required by law. Electronically signed by: Arsen Dominguez M.D. 09/08/2024 4:02 PM Discharge Plan Visit Data Chief Complaint: Illness Stated Complaint: STAGE 4 LUNG CANCER, SPASMS AND ABD PAIN, FEVER ED Provider: Cj Estrada Discharge Problem: Acute left flank pain, Myofascial pain, Cancer related pain, Primary lung squamous cell carcinoma, Acute generalized abdominal pain Forms Stand Alone Forms: [employer] Prescriptions Prescriptions: No Action hydromorphone [Dilaudid] 4 mg tablet 4 mg PO Q4H PRN (Reason: pain) 30 Days Qty: 90 0RF acyclovir 400 mg Tablet 400 mg PO TID PRN (Reason: Cold Sore(s)) Rx Instructions: TAKE THIS MEDICATION DIRECTED FOR 5 TO 7 DAYS levothyroxine 100 mcg Tablet 100 mcg PO DAILYBB Rx Instructions: MUST BE BRAND NAME albuterol sulfate [Ventolin HFA] 90 mcg/actuation Hfa Aerosol Inhaler 2 puff INHALATION Q4H PRN (Reason: Wheezing) lisinopril 20 mg Tablet 20 mg PO DAILY Praluent Pen 75 mg/mL pen injector 75 mg SUBCUT .[id number] ipratropium-albuterol 0.5 mg-3 mg(2.5 mg base)/3 mL Solution For Nebulization 3 ml INHALATION Q6H PRN (Reason: Wheezing) cholecalciferol (vitamin D3) 25 mcg (1,000 unit) Capsule 25 mcg PO DAILY aspirin 81 mg Tablet,Delayed Release (Dr/Ec) 81 mg PO DAILY famotidine 20 mg tablet 20 mg PO BID baclofen 10 mg tablet 20 mg PO TID Tagrisso 80 mg Tablet 80 mg PO PM hydrochlorothiazide 12.5 mg capsule 12.5 mg PO UD Rx Instructions: 2 days per week zolpidem 10 mg tablet 10 mg PO HS doxycycline hyclate 100 mg capsule 100 mg PO UD Rx Instructions: not currently taking BID lorazepam [Ativan] 0.5 mg tablet 0.5 mg PO Q6H PRN (Reason: anxiety, insomnia, nausea from cancer) Referrals Referrals: Cj Rico MD [Primary Care Provider] -
[2024-09-08] MEDS: HEPARIN SOD 5,000 UNIT/0.5 ML VIAL SQ SCH (20:09)
[2024-09-08] MEDS: FAMOTIDINE 20 MG TAB PO SCH (20:09)
[2024-09-08] MEDS: DOCUSATE SODIUM 100 MG CAP PO SCH (20:09)
--- OUTSIDE RECORDS SUMMARY | 2024-09-08 20:10 | External Medical Summary | Summary of Care ---
Author Name Unknown Organization [facility] Address [address] [place] [address] Phone [phone] Care Team Providers Care Railroad Wheels [employer] Axles Inspector Name Role Phone Trisha DUTTA MD, Cj Cote Primary Care Provider [phone] Reason for Visit * Reason Comments Medication Management Encounter Details Date Type Department Care Team (Late st Contact Info) Description 08/21/2024 9:45 AM EDT Pharmacy Pharmacy Hematology Oncology [facility] [address], [place] [id number] [facility] Hem/Onc [address], [place] [id number] Primary malignant neoplasm of left lung (HCC)* Allergies Active Allergy Reactions Criticality Noted Date Comments Losartan Potassium Edema face/lips/tongue High 06/30 Fentanyl Itching 08/30/2016 Oxycodone 06/07/2023 Itching all over Penicillins Edema face/lips/tongue High 11/15/2001 Sulfa Antibiotics Other (Please comment) 2000 Urinary frequency Topiramate 04/09/2023 Other reaction(s): Blurry Vision Tramadol Other (Please comment) 01/01/2018 hallucinations documented as of this encounter (statuses as of 08/21/2024) Medications Medication Sig Dispensed Refills Start Date [...] aroxysmal atrial fibrillation (HCC),Coronary artery disease involving [place] coronary artery of [place] heart without angina pectoris,Dyslipidemi a, goal LDL below 70,HTN, goal below 140/90 Take 1 Tab by mouth daily. 07/13/2021 Active Probiotic (Lactobacillus) Oral Capsule Take 1 Capsule by mouth daily. 30 Capsule 12/05/2021 Active Budesonide 32 MCG/ACT Nasal SuspensionIndication s:Chronic sinusitis, unspecified location,Acute recurrent sinusitis, unspecified location Administer 2 Sprays into each nostril in the morning. 5 mL 3 11/17/2022 Active BiPAP every night at bedtime. Active Saline Nasal [place] 0.65 % Nasal Solution (Stearns) Administer 1 [place] into nostril as needed for Congestion. Active [...] TWICE DAILY 60 Tablet 5 02/27/2024 Active Lisinopril 20 MG Oral Tablet (Prinivil) [...] per week. 28 Capsule 3 05/22/2024 Active Full Kit Nebulizer Set Use with Nebulizer Medication EVERY SIX HOURS WHILE AWAKE as directed. Dx Code: J44.9 1 Each 3 06/30/2024 Active LORazepam 0.5 MG Oral Tablet (Ativan) Take 1 Tablet by mouth every 6 hours as needed for Anxiety or Other (muscle spasm). 30 Tablet 1 07/07/2024 Active Hydrocortisone 1 % External CreamIndications:[facility] malignant neoplasm of lung, unspecified laterality (HCC) [...] for Nausea. 30 Tablet 3 07/24/2024 Active Nitroglycerin 0.4 MG Sublingual Tablet Sublingual (Nitrostat)Indicatio ns:Abnormal cardiac CT angiography,Paroxysm al atrial fibrillation (HCC),HTN, goal below 140/80,Dyslipidemia, goal LDL below 70,JOLANTA (obstructive sleep apnea) Place 1 Tablet under the tongue every 5 minutes as needed for Pain, Chest (up to 3 doses in 15 minutes). 25 Tablet 11 08/05/2024 Active Acyclovir 400 MG Oral Tablet (Zovirax) 3 times daily for 5-7 days as needed for cold sores 60 Tablet 11 08/07/2024 Active Baclofen 20 MG Oral TabletIndications:Wh iplash injury to neck, subsequent encounter Take 1 Tablet by mouth in the morning and 1 Tablet at noon and 1 Tablet before bedtime. 90 Tablet 5 08/07/2024 Active Triamcinolone Acetonide 0.1 % Mouth/Throat Paste (Kenalog In Orabase) Apply to inside of cheek 2 times a day. 5 g 12 08/10/2024 Active Zolpidem Tartrate 10 MG Oral Tablet (Ambien)Indications: Insomnia, unspecified type Take 1 Tablet by mouth at bedtime as needed for Sleep. 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 100 mL 08/15/2024 Active Doxycycline Hyclate 100 MG Oral Capsule Twice daily with food Take for 7 days 14 Capsule 08/21/2024 Active Hospital, Clinic, or Other Facility Administered [...] as of this encounter (statuses as of 08/21/2024) Active Problems Problem Noted Date Diagnosed Date COPD, group B, by GOLD 2017 classification 07/07 Overview: Per COPD GOLD Classification Primary lung cancer 06/17/2024 Overview: 3 cm left apex lesion with extensive lymph nodes, small pleural effusion Coronary artery disease invo lving [place] coronary artery of [place] heart with angina pectoris 03/25/2023 Acquired absence of other sp ecified parts of digestive tract 11/10/2022 Arthrodesis status 11/10/2022 Complication of anesthesia 11/10/2022 Compression fracture of T12 vertebra 11/10/2022 Discitis 11/10/2022 Gout 11/10/2022 History of lumbar fusion 11/10/2022 Inflammation of sacroiliac joint 11/10/2022 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 Increased risk for Hereditary Cardiomyopathy. Please click the link below for a brief summary of current clinical management recommendations for Hypertrophic Cardiomyopathy. MYH7 Coronary artery disease invo lving [place] coronary artery of [place] heart without angina pectoris 09/26/2021 MISHRA (dyspnea [...] as of this encounter (statuses as of 08/21/2024) Resolved Problems Problem Noted Date Diagnosed Date [...] as of this encounter (statuses as of 08/21/2024) Immunizations Name Administration Dates Next Due COVID-19 mRNA, LNP-s, No Pre serve, 2-Dose Series (Techgenia) 10/29/2021,02/07/2021,01/03/2021 PPD 04/27/2010, 0,04/08/2010,04/08,10/25/2006,10/25/2006 Pneumococcal Polysaccharide PPV23 [...] this encounter Progress Notes * Renay Ferrer, [facility] - 08/21/2024 2:28 PM EDT MEDICATION THERAPY MANAGEMENT OSIMERTINIB TREATMENT PROGRESS NOTE Florecita Metzger" Quintana [id number] Patient Phone Numbers Preferred Lab: [facility] Specialty Pharmacy: [facility] Communication: Spoke to: Patient Treatment: Medication: Osimertinib (Tagrisso) Indication/Staging/Diagnosis Code: NSCLC, 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 Hawk Simmons Supportive Care Meds: Ondansetron Prochlorperazine Prophylactic Meds: Hydrocortisone Relevant Chronic Medications: Category Medications Pertinent Notes Antihypertensives HCTZ 12.5mg 2 days per week Lisinopril 20mg daily Per cardiology Per PCP Anticoagulation ASA 81mg daily Per cardiology Thyroid Levothyroxine 100mcg daily Per PCP Treatment History: None Interval History: Per TE 07/22/24, pt admitted to [facility] 07/27/24-07/30/24 and started osimertinib 07/31/24 Per PCP OV 08/07/24, pt to start acyclovir for cold sore Per OV 08/14/24 pt to start magic mouthwash for stomatitis States she was told Melissa did not receive RX States RX cannot be transferred due to insurance Per TE 08/14/24 addendum 08/15/24, pt reports chipped tooth and was advised to follow up with her dentist Inquiring if she will need different antimicrobial for potential dental procedure or if doxycyclinewill be sufficient Per MyG 08/19/24, pt to start doxycycline for EGFR-related rash and infection ppx States she has not picked up RX yet No other concerns Changes to medication list since last visit? Yes, doxycycline - no DDI Assessment and Plan: Advised pt lidocaine RX sent to pharmacy 08/15/24. Stated possibility pharmacy did not have medication in stock at the time of anticipated medicinal plant picker. Encouraged pt to inquire about lidocaine availability when she gets doxycycline RX today Pt replied with understanding and appreciation Encouraged pt to follow up with dentist for chipped tooth. Explained osimertinib does not cause dental issues and chipped tooth is separate issue. Explained if dentist requires antimicrobial, it will most likely be different than doxycycline and she should take two medications for two separate issues Pt replied with reluctance but understanding Encouraged pt to medicinal plant picker doxycycline RX today Explained EGFR-related rash is sign of osimertinib efficacy Advised pt to continue to moisturize face daily and to not treat rash like acne Reviewed doxycyline photosensitivity and advised pt to apply sunscreen when outdoors Encouraged pt to take probiotic or eat yogurt to prevent antimicrobial-induced GI issues Pt replied with understanding Continue current therapy Assessment of compliance: compliant Assessment of adverse effects attributed to drug therapy: Rash/Dry Skin- present Nail Changes- absent Diarrhea - absent Pneumonitis - absent Dose adjustment needed based on lab or adverse drug reaction? No Follow up: 1 week Renay Ferrer, PharmD, BCOP Clinical Pharmacist, [facility] Oral Chemotherapy [facility] 08/21/2024, 3:07 PM Monitoring Parameters: Estimated CrCl Serum creatinine: 0.8 mg/dL 08/14/24 0947 Estimated creatinine clearance: 63.2 mL/min Hepatitis panel Latest Reference Range & [...] electrolytes periodically Date QTc 07/08/24 445 ms 08/07/24 442 ms - Septal infarct is now Present Date LVEF 07/15/24 60% Treatment Parameters Qtc < 500 ms Pertinent labs: N/A Time Spent on Encounter: 21 - 25 minutes Encounter Group: Oncology Encounter Interventions Item Category: Oral Chemotherapy Osimertinib Problem/Rationale: Safety: Needs additional monitoring - Medication Requires monitoring Education: Clarification Pharmacist Intervention(s): Education provided and Toxicity monitoring Magnitude of Intervention: Monitoring with direction (Level 1) Second Item Second Item Category: Anti-Infective Doxycycline Problem/Rationale: Indication: Needs additional medication therapy - Untreated condition Education: Initial education Pharmacist Intervention(s): Education provided Magnitude of Intervention: Monitoring with direction (Level 1) documented in this encounter Plan of Treatment Upcoming Encounters Date Type Department Care Team (Late st Contact Info) Description 08/28/2024 9:45 AM EDT Pharmacy Pharmacy Hematology Oncology [facility] [address] [place] [address] [facility] Hem/Onc [address] [place] [address] 09/25/2024 9:15 AM EDT Office Visit Hematology/Oncology [facility] [address] [facility] [id number] Cortez Simmons MD [address] [facility] [address] 10/08/2024 10:20 AM EST Office Visit Pulmonary Medicine, [facility] [address] [facility] [place] [address] Rico Wall MD [address] [place] [address] 10/27/2024 11:45 AM EST Imaging Radiology [facility] [address] [facility] [address] [facility] [place] [address] Health Maintenance Due Date Last Done Comments Alpha-1 Antitrypsin 1971 Cologuard 1998 Fecal Occult Blood Test 1998 Sigmoidoscopy 1998 Zoster Vaccines (1 of 2) 2003 Pneumococcal Vaccine: 65+ Years (2 of 2 - PCV) 10/21/2017 10/21/2016 Adult Wellness Visit 2019 DTap/Tdap Vaccines (2 - Td or Tdap) 06/09/2019 06/09/2009 Depression Screening 08/09/2023 08/09/2022 Mammogram 05/07/2024 05/07/2023, 04/26, 04/13/2022, Additional history exists COVID-19 Vaccine ( season) 2024 10/29/2021, 02/07/2021, 01/03/2021 Influenza Vaccine (FLU shot) (#1) 2024 08/14/2023, 09/12/2022, 09/06/2021, Additional history exists TSH 01/02/2025 01/02/2024, 02/24, 02/22/2023, Additional history exists O2 ASSESSMENT COMPLETED IN PAST YEAR FOR COPD 06/25/2025 06/25/2024 GFR 08/14/2025 08/14/2024, 06/26, 05/19/2024, Additional history exists Albumin/Creatinine Ratio 02/28/2026 02/28/2023 [...] Visit Diagnoses Diagnosis Primary malignant neoplasm of left lung (HCC)- Primary documented in this encounter [...] Directives occurred with: Not Discussed Care Teams Railroad Wheels And Axles Inspector Relationship Specialty Start Date End Date Cj Rico III, MD [address] [place] [address] PCP - General Family Medicine 05/19/14 documented as of this encounter
--- OUTSIDE RECORDS SUMMARY | 2024-09-08 20:10 | External Medical Summary | Summary of Care ---
Author Name Unknown Organization [facility] Address [address] [place] [address] Phone [phone] Care Team Providers Care Animal Care Taker Name Role Phone Trisha DUTTA MD, Cj Cote Primary Care Provider [phone] Encounter Details Date Type Department Care Team (Late st Contact Info) Description 08/22/2024 Orders Only Family Practice [facility] [address] [facility] [place] [address] Cj Rico III, MD [address] [place] [address] Allergies Active Allergy Reactions Criticality Noted Date Comments Losartan Potassium Edema face/lips/tongue High 06/30 Fentanyl Itching 08/30/2016 Oxycodone 06/07/2023 Itching all over Penicillins Edema face/lips/tongue High 11/15/2001 Sulfa Antibiotics Other (Please comment) 2000 Urinary frequency Topiramate 04/09/2023 Other reaction(s): Blurry Vision Tramadol Other (Please comment) 01/01/2018 hallucinations documented as of this encounter (statuses as of 08/22/2024) Medications Medication Sig Dispensed Refills Start Date [...] aroxysmal atrial fibrillation (HCC),Coronary artery disease involving [place] coronary artery of [place] heart without angina pectoris,Dyslipidemi a, goal LDL [...] every night at bedtime. Active Saline Nasal [place] 0.65 % Nasal Solution (Ferdinand) Administer 1 [place] into nostril as needed for Congestion. Active [...] 1 07/07/2024 Active Hydrocortisone 1 % External CreamIndications:Yumiko nancy [...] mouth at bedtime as needed for Sleep. [place] brand 30 Tablet 3 08/12/2024 Active Magic [...] as of this encounter (statuses as of 08/22/2024) Active Problems Problem Noted Date Diagnosed Date COPD, group B, by GOLD 2017 classification 07/07 Overview: Per COPD GOLD Classification Primary lung cancer 06/17/2024 Overview: 3 cm left apex lesion with extensive lymph nodes, small pleural effusion Coronary artery disease invo lving [place] coronary artery of [place] heart with angina pectoris 03/25/2023 Acquired absence of other sp ecified parts of digestive tract 11/10/2022 Arthrodesis status 11/10/2022 Complication of anesthesia 11/10/2022 Compression fracture of T12 vertebra 11/10/2022 Discitis 11/10/2022 Gout 11/10/2022 History of lumbar fusion 11/10/2022 Inflammation of sacroiliac joint 11/10/2022 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 Increased risk for Hereditary Cardiomyopathy. Please click the link below for a brief summary of current clinical management recommendations for Hypertrophic Cardiomyopathy. MYH7 Coronary artery disease invo lving [place] coronary artery of [place] heart without angina pectoris 09/26/2021 MISHRA (dyspnea [...] as of this encounter (statuses as of 08/22/2024) Resolved Problems Problem Noted Date Diagnosed Date [...] as of this encounter (statuses as of 08/22/2024) Immunizations Name Administration Dates Next Due COVID-19 mRNA, LNP-s, No Pre serve, 2-Dose Series (TaxiMe) 10/29/2021,02/07/2021,01/03/2021 PPD 04/27/2010, 0,04/08/2010,04/08,10/25/2006,10/25/2006 Pneumococcal Polysaccharide PPV23 [...] 9:45 AM EDT Pharmacy Pharmacy Hematology Oncology [facility] [address] [place] [address] [facility] [place] Hem/Onc [address] [place] [address] 09/25/2024 9:15 AM EDT Office Visit Hematology/Oncology [facility] [address] [place] [id number] Cortez Simmons MD [address] [place] [address] 10/08/2024 10:20 AM EST Office Visit Pulmonary Medicine, [facility] [address] [place] [address] Rico Wall MD [address] [place] [address] 10/27/2024 11:45 AM EST Imaging Radiology [facility] [address]st [facility] [address] [place] [address] Pending Results Name Type Priority Associated Diagnoses Date /Time XR CHEST 2 VIEWS Medical Imaging Routine Health Maintenance Due Date Last Done Comments [...] Directives occurred with: Not Discussed Care Teams Animal Care Taker Relationship Specialty Start Date End Date Cj Rico III, MD [address] [place] [address] PCP - General Family Medicine 05/19/14 documented as of this encounter
--- OUTSIDE RECORDS SUMMARY | 2024-09-08 20:10 | External Medical Summary | Summary of Care ---
Author Name Unknown Organization [facility] Address [address] [place] [address] Phone [phone] Care Team Providers Care Document Preparation Specialist Name Role Phone Trisha DUTTA MD, Cj Cote Primary Care Provider [phone] Reason for Visit * Reason Comments Follow Up Encounter Details Date Type Department Care Team (Late st Contact Info) Description 08/28/2024 3:00 PM EDT Office Visit Hematology/Oncology [facility] [place] [address] [place] [address] Rody Fischer CRNP [address] [place] [address] Malignant neoplasm of upper lobe of left lung (HCC)*; HSV (herpes simplex virus) infection; Oral mucositis (ulcerative) due to antineoplastic therapy; Esophageal candidiasis (HCC); Acneiform rash Allergies Active Allergy Reactions Criticality Noted Date Comments Losartan Potassium Edema face/lips/tongue High 06/30 Fentanyl Itching 08/30/2016 Oxycodone 06/07/2023 Itching all over Penicillins Edema face/lips/tongue High 11/15/2001 Sulfa Antibiotics Other (Please comment) 2000 Urinary frequency Topiramate 04/09/2023 Other reaction(s): Blurry Vision Tramadol Other (Please comment) 01/01/2018 hallucinations documented as of this encounter (statuses as of 08/31/2024) Medications Medication Sig Dispensed Refills Start Date End Date Status TYLENOL EXTRA STRENGTH 500 MG PO TABS Take 2 Tablets by mouth every 6 hours as needed for Pain, Mild or Pain, Moderate. 0 7 Active VITAMIN D 1000 UNIT PO CAPS one capsule by mouth once a day Active Aspirin EC 81 MG Oral Tablet Delayed ReleaseIndications: Paroxysmal atrial fibrillation (HCC),Coronary artery disease involving [place] coronary artery of [place] heart without angina pectoris,Dyslipidem ia, goal LDL below 70,HTN, goal below 140/90 Take 1 Tab by mouth daily. 1 Active Probiotic (Lactobacillus) Oral Capsule Take 1 Capsule by mouth daily. 30 Capsule 2 Active Budesonide 32 MCG/ACT Nasal SuspensionIndicatio ns:Chronic sinusitis, unspecified location,Acute recurrent sinusitis, unspecified location Administer 2 Sprays into each nostril in the morning. 5 mL 3 2 Active BiPAP every night at bedtime. Active Saline Nasal [place] 0.65 % Nasal Solution (Herrin) Administer 1 [place] into nostril as needed for Congestion. Active Albuterol Sulfate (2.5 MG/3ML) 0.083% Inhalation Nebulization Solution (Proventil)Indicati ons:Bronchitis, complicated,Chronic bronchitis, unspecified chronic bronchitis type (HCC) use 1 nebulizer vial as needed for cough, shortness of breath, and wheeze 75 mL 3 Active Ipratropium-Albuter ol 0.5-2.5 (3) MG/3ML Inhalation Solution (Duoneb)Indications :Bronchitis, complicated,Chronic bronchitis, unspecified chronic bronchitis type (HCC) INHALE 1 VIAL VIA NEBULIZER EVERY 6 HOURS NEEDED FOR WHEEZING 90 mL 3 3 Active Praluent 75 MG/ML Subcutaneous Solution Auto-injector (Alirocumab)Indicat ions:Dyslipidemia, goal LDL below 70 Inject 75 mg (1 pen) under the skin every 14 days. 6 mL 3 3 Active Levothyroxine Sodium 100 MCG Oral Tablet (Levoxyl) take one tablet by mouth daily at least 30 minutes before breakfast and other medications 90 Tablet 3 4 Active Triamcinolone Acetonide 55 MCG/ACT Nasal Aerosol (Nasacort Allergy 24HR) Administer into nostril daily as needed. Active Famotidine 20 MG Oral Tablet (Pepcid) TAKE 1 TABLET BY MOUTH TWICE DAILY 60 Tablet 5 4 Active Lisinopril 20 MG Oral Tablet (Prinivil) Take 1 Tablet by mouth in the morning. 90 Tablet 2 4 Active HYDROmorphone HCl 2 MG Oral Tablet (Dilaudid)Indicatio ns:Post laminectomy syndrome Take 1 Tablet by mouth every 6 hours as needed for Pain, Moderate or Pain, Severe. 30 Tablet 4 Active Albuterol Sulfate HFA 108 (90 Base) MCG/ACT Inhalation Aerosol Solution Inhale 2 Puffs by mouth every 4 hours as needed for Wheezing. 18 g 3 4 Active hydroCHLOROthiazide 12.5 MG Oral CapsuleIndications: HTN, goal below 130/80 1 tablet 2 days per week. 28 Capsule 3 4 Active Full Kit Nebulizer Set Use with Nebulizer Medication EVERY SIX HOURS WHILE AWAKE as directed. Dx Code: J44.9 1 Each 3 4 Active LORazepam 0.5 MG Oral Tablet (Ativan) Take 1 Tablet by mouth every 6 hours as needed for Anxiety or Other (muscle spasm). 30 Tablet 1 4 Active Hydrocortisone 1 % External CreamIndications:Pr imary malignant neoplasm of lung, unspecified laterality (HCC) Apply topically to affected area 2 times a day. Apply twice daily for 6 weeks 120 g 1 4 Active HYDROcodone Bit-Homatrop MBr 5-1.5 MG/5ML Oral Solution (Hycodan) Take 5 mL by mouth every 6 hours as needed for Cough. 473 mL 4 Active Osimertinib Mesylate 80 MG Oral Tablet (Tagrisso)Indicatio ns:Primary malignant neoplasm of lung, unspecified laterality (HCC) Take 1 Tablet by mouth in the morning. Take medication about same time every day, with or without food.. 30 Tablet 5 4 Active Ondansetron HCl 8 MG Oral Tablet (Zofran) Take 1 Tablet by mouth every 8 hours as needed for Nausea. 20 Tablet 2 4 Active Prochlorperazine Maleate 10 MG Oral Tablet (Compazine) Take 1 Tablet by mouth every 6 hours as needed for Nausea. 30 Tablet 3 4 Active Nitroglycerin 0.4 MG Sublingual Tablet Sublingual (Nitrostat)Indicati ons:Abnormal cardiac CT angiography,Paroxys mal atrial fibrillation (HCC),HTN, goal below 140/80,Dyslipidemia , goal LDL below 70,JOLANTA (obstructive sleep apnea) Place 1 Tablet under the tongue every 5 minutes as needed for Pain, Chest (up to 3 doses in 15 minutes). 25 Tablet 11 4 Active Acyclovir 400 MG Oral Tablet (Zovirax) 3 times daily for 5-7 days as needed for cold sores 60 Tablet 11 4 Active Baclofen 20 MG Oral TabletIndications:W hiplash injury to neck, subsequent encounter Take 1 Tablet by mouth in the morning and 1 Tablet at noon and 1 Tablet before bedtime. 90 Tablet 5 4 Active Triamcinolone Acetonide 0.1 % Mouth/Throat Paste (Kenalog In Orabase) Apply to inside of cheek 2 times a day. 5 g 12 4 Active Zolpidem Tartrate 10 MG Oral Tablet (Ambien)Indications :Insomnia, unspecified type Take 1 Tablet by mouth at bedtime as needed for Sleep. 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 100 mL 4 Active Fluconazole 100 MG Oral Tablet (Diflucan)Indicatio ns:Esophageal candidiasis (HCC) Take 1 Tablet by mouth in the morning for 14 days. 14 Tablet 4 09/11/20 24 Active Clindamycin Phosphate 1 % External GelIndications:Acne iform rash Apply topically to affected area 2 times a day. Apply to face. 30 g 1 4 Active Doxycycline Hyclate 100 MG Oral CapsuleIndications: Acneiform rash Take 1 Capsule by mouth in the morning and 1 Capsule before bedtime. 60 Capsule 1 4 Active Doxycycline Hyclate 100 MG Oral Capsule Twice daily with food Take for 7 days 14 Capsule 4 08/28/20 24 Discontinued Hospital, Clinic, or Other Facility Administered Medication [...] as of this encounter (statuses as of 08/31/2024) Active Problems Problem Noted Date Diagnosed Date COPD, group B, by GOLD 2017 classification 07/07 Overview: Per COPD GOLD Classification Primary lung cancer 06/17/2024 Overview: 3 cm left apex lesion with extensive lymph nodes, small pleural effusion Coronary artery disease invo lving [place] coronary artery of [place] heart with angina pectoris 03/25/2023 Acquired absence of other sp ecified parts of digestive tract 11/10/2022 Arthrodesis status 11/10/2022 Complication of anesthesia 11/10/2022 Compression fracture of T12 vertebra 11/10/2022 Discitis 11/10/2022 Gout 11/10/2022 History of lumbar fusion 11/10/2022 Inflammation of sacroiliac joint 11/10/2022 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 Increased risk for Hereditary Cardiomyopathy. Please click the link below for a brief summary of current clinical management recommendations for Hypertrophic Cardiomyopathy. MYH7 Coronary artery disease invo lving [place] coronary artery of [place] heart without angina pectoris 09/26/2021 MISHRA (dyspnea [...] as of this encounter (statuses as of 08/31/2024) Resolved Problems Problem Noted Date Diagnosed Date [...] as of this encounter (statuses as of 08/31/2024) Immunizations Name Administration Dates Next Due COVID-19 mRNA, LNP-s, No Pre serve, 2-Dose Series (Pfizer) 10/29/2021,02/07/2021,01/03/2021 PPD 04/27/2010, 0,04/08/2010,04/08,10/25/2006,10/25/2006 Pneumococcal Polysaccharide PPV23 (Pneumovax) 10/21/2016 Season Influenza, Quad, PF, Adjuvanted, 65+ Yrs, IM (FLUAD) 08/16/2020 Seasonal Influenza Vac., MDV , IM, 0.5 mL (Fluzone) 09/09/2014,12/30/2010,10/18/2007 Seasonal Influenza Virus Vac cine, Unspecified Formulation 10/10/2019 Seasonal Influenza, PF, 6 M & above, IM , (FluLaval or Fluzone) 10/10/2019 Seasonal Influenza, Quadriva lent Hd (Fluzone Hd) 08/14/2023,09/12/2022,09/06/2021 Seasonal Influenza, Quadriva lent, No Preserve, IM 10/21/2016 TDAP, Age 7 and older, IM (Adacel) [...] Sign Reading Time Taken Comments Blood Pressure 147/80 08/28/2024 2:48 PM EDT Pulse 89 08/28/2024 2:48 PM EDT Temperature 36.4 C (97.6 F) 08/28/2024 2:48 PM ED T Respiratory Rate - - Oxygen Saturation 95% 08/28/2024 2:48 PM EDT Inhaled Oxygen Concentration - - Weight 80.3 kg (177 lb) 08/28/2024 2:48 PM EDT Height - - Body Mass Index 32.37 07/02/2024 12:17 PM EDT documented in this [...] as of this encounter Progress Notes * Rody Fischer CRNP - 08/28/2024 3:00 PM EDT Hematology/Oncology Outpatient [place] [address] [address] Name: Florecita Quintana Date: 08/28/2024 CHIEF COMPLAINT: Florecita Quintana is a 69 year old female here today for f/u visit today. Patient of Dr. Cortez Simmons. From Patient chart confirmed with patient. From Dr. Cortez Simmons note 08/14/24. HEMATOLOGY/ONCOLOGY DIAGNOSIS: Left upper lobe non-small cell lung cancer, 3 cm primary tumor, multiple pleural-based lung nodulesmeasuring up to 1.7 cm in the left upper and lower lobes. (May 2024). -contralateral mediastinal lymphadenopathy PD-L1 40% NGS checkup (06/24/2024). -TMB --> 3.8 which is low -MSI stable -EGFRexon 19 deletion, [id number],--> present - MET ampullary reaction present, copy number --> 6.3 - CDKN2B and 2A --> positive. - RBM10--> positive Cancer Staging T4 N3 M1a. Stage IV DATE OF DIAGNOSIS: 06/25/24 CURRENT TREATMENT: Tagrisso 80 mg once a day. ( 07/30/2024--) DIAGNOSTIC WORKUP: She says that she had [...] -hyperlipidemia -hypertension -GERD. -atrial fibrillation, S/P ablations. HISTORY OF PRESENT ILLNESS: Florecita Quintana is a 69 year old female with a history as outlined above. Currently here for acute visit today. Has been experiencing increased pain upon swallowing in her esophagus. Feels that food is getting stuck. Also has noted more lymph nodes popping up along her collar bone. Pain in mouth didimprove with acyclovir and magic swizzle. Now since stopping the medication noticing another cold sore developing. Rash on face has resolved with doxycycline. Past Medical History: Diagnosis Date Arthritis of [...] Temporomandibular joint disorder 11/15/2009 Thoracic compression fracture ([facility]) 7-9 Throat pain 11/13/2006 x1 month feels like a lump Past Surgical History: Procedure Laterality Date BLADDER CATH INSERTION,TEMP INDWELL, SIMPLE Bilateral 12/26/2017 INSERTION TEMPORARY INDWELLING CATHETER SIMPLE performed by Silverio Correa MD at OR [facility] BREAST BIOPSY Right 08/06/2012 benign breast tissue with fat necrosis BRONCHOSCOPY, DIAGNOSTIC N/A 06/25/2024 BRONCHOSCOPY DIAGNOSTIC WITH OR WITHOUT WASHING performed by Joanne Chanel MD at ENDOSCOPY [facility] COLONOSCOPY, DIAGNOSTIC (RECTUM) 09/11/2016 hyperplastic polyps, diverticulosis, repeat 5 yrs/COLONOSCOPY FLEXIBLE PROXIMAL DIAGNOSTIC performed by Jann Roth DO at ENDOSCOPY [facility] COLONOSCOPY, DIAGNOSTIC (RECTUM) 02/08/2024 biopsies show adenomatous polyps/COLONOSCOPY FLEXIBLE PROXIMAL DIAGNOSTIC performed by Ronaldo Faith MD at ENDOSCOPY [facility] CYSTOSCOPY/INSERTION OF STENT Bilateral 12/26/2017 CYSTOURETHROSCOPY WITH INSERTION URETERAL STENT performed by Silveiro Correa MD at OR [facility] CYSTOSCOPY/URETERAL CATHETER Bilateral 12/26/2017 CYSTOURETHROSCOPY WITH URETERAL CATHETER performed by Silverio Correa MD at [facility] EGD, FLEXIBLE, DIAGNOSTIC 09/08/2008 large amount of food in stomach EGD, FLEXIBLE, DIAGNOSTIC 09/11/2016 normal bx/ESOPHAGOGASTRODUODENOSCOPY (EGD), FLEXIBLE, TRANSORAL, DIAGNOSTIC performed by Jann Roth DO at ENDOSCOPY [facility] EGD, FLEXIBLE, DIAGNOSTIC 02/08/2024 mild patchy erythema duodenal bulb/ESOPHAGOGASTRODUODENOSCOPY (EGD), FLEXIBLE, TRANSORAL, DIAGNOSTIC performed by Ronaldo Faith MD at ENDOSCOPY [facility] EGD, FLEXIBLE, W/BIOPSY 09/10/2008 [address], f/u in clinic ELECTROPHYSIOLOGY EVAL, ATRIAL FIB, PULMONARY VEIN ISOL 07/07/2013 ELECTROPHYSIOLOGY EVAL, ATRIAL FIB, PULMONARY VEIN ISOL performed by Mt Ugarte MD at CARDIAC LABS [facility] FLUORO PYELOGRAM RETROGRADE Bilateral 12/26/2017 UROGRAHY, RETROGRADE, WITH OR WITHOUT KUB performed by Silverio Correa MD at OR [facility] INFORMATION ant cerv discectomy, fusion c4-5, c6-7 LAPAROSCOPIC PARTIAL COLECTOMY W/COLOPROCTOSTOMY N/A 12/26/2017 12/26/2017 LAPAROSCOPIC PARTIAL COLECTOMY WITH COLOPROCTOSTOMY performed by Navi Canela MD at [facility] LUMBAR HEMILAMINECTOMY LUMBAR SPINE FUSION W/BONE GRAFT MAMMOGRAM - BILATERAL 11/11/2004 birad code 2/o'schuster NECK SPINE FUSION (CERV, BELOW C2) PAP SCREEN 10/14/2003 satisfactory/pranav PAP SCREEN 10/28/2004 negative/[place] PAP SCREEN 08/16/2006 negative REDUCTION OF BREAST Bilateral 2002 at age 48 REMOVAL OF APPENDIX REMOVAL [...] breast Gill's Pereira - f/u in 6 monhts US GUIDED BREAST BIOPSY LEFT Left 04/27/2022 benign Social History Socioeconomic History Marital status: Spouse name: Enzo Number of children: 2 Years of education: Not on file Highest education level: Not on file Occupational History 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 no occupation related worsening of symptoms. [...] on file Housing Stability: Not on file Review of patient's allergies indicates: Allergen Reactions Cozaar [Losartan Potassium] Edema face/lips/tongue Penicillins Edema face/lips/tongue Fentanyl Itching Oxycodone Itching all over Sulfa Antibiotics Other (Please comment) Urinary frequency Topiramate Other reaction(s): Blurry Vision Tramadol Other (Please comment) hallucinations Current Outpatient Medications Medication Sig Dispense Refill [...] Capsule by mouth daily. 30 Capsule 0 Budesonide 32 MCG/ACT Nasal Suspension Administer 2 Sprays into each nostril in the morning. 5 mL 3 BiPAP every night at bedtime. Saline Nasal [place] 0.65 % Nasal Solution (Herrin) Administer 1 [place] into nostril as needed for Congestion. Albuterol Sulfate (2.5 MG/3ML) 0.083% Inhalation Nebulization [...] BY MOUTH TWICE DAILY 60 Tablet 5 Lisinopril 20 MG Oral Tablet (Prinivil) Take [...] Capsule 1 tablet 2 days per week. 28 Capsule 3 Full Kit Nebulizer Set Use with Nebulizer Medication EVERY SIX HOURS WHILE AWAKE as directed. Dx Code: J44.9 1 Each 3 LORazepam 0.5 MG Oral Tablet (Ativan) Take 1 Tablet by mouth every 6 hours as needed for Anxiety orOther (muscle spasm). 30 Tablet 1 Hydrocortisone 1 % External Cream Apply topically to affected area 2 times a day. Apply twice dailyfor 6 weeks 120 g 1 HYDROcodone Bit-Homatrop MBr 5-1.5 MG/5ML Oral Solution (Hycodan) Take 5 mL by mouth every 6 hours as needed for Cough. 473 mL 0 Osimertinib Mesylate 80 MG Oral Tablet (Tagrisso) Take 1 Tablet by mouth in the morning. Take medication about same time every day, with or without food.. 30 Tablet 5 Ondansetron HCl 8 MG Oral Tablet (Zofran) Take 1 Tablet by mouth every 8 hours as needed for Nausea. 20 Tablet 2 Prochlorperazine Maleate 10 MG Oral Tablet (Compazine) Take 1 Tablet by mouth every 6 hours as needed for Nausea. 30 Tablet 3 Nitroglycerin 0.4 MG Sublingual Tablet Sublingual (Nitrostat) Place 1 Tablet under the tongue every5 minutes as needed for Pain, Chest (up to 3 doses in 15 minutes). 25 Tablet 11 Acyclovir 400 MG Oral Tablet (Zovirax) 3 times daily for 5-7 days as needed for cold sores 60 Tablet 11 Baclofen 20 MG Oral Tablet Take 1 Tablet by mouth in the morning and 1 Tablet at noon and 1 Tablet before bedtime. 90 Tablet 5 Triamcinolone Acetonide 0.1 % Mouth/Throat Paste (Kenalog In Orabase) Apply to inside of cheek 2 times a day. 5 g 12 Zolpidem Tartrate 10 MG Oral Tablet (Ambien) Take 1 Tablet by mouth at bedtime as needed for Sleep.[place] brand 30 Tablet 3 Magic Swizzle (Ahxqmjtxg-Oojvixhd-Mqbiux) oral solution Swish and spit 15mL before meals and at bedtime as needed 300 mL 2 Lidocaine Viscous HCl 2 % Mouth/Throat Solution Mix 1/3 lidocaine, 1/3 maalox, 1/3 benadryl swish and spit four times a day as needed. 100 mL 0 Doxycycline Hyclate 100 MG Oral Capsule Twice daily with food Take for 7 days 14 Capsule 0 Current Facility-Administered Medications Medication Dose Route Frequency Provider Last Rate Last Admin Albuterol Sulfate (Proventil) (5 MG/ML) 0.5% *conc* inhalation solution 2.5 mg 2.5 mg Nebulizer PRN Albuterol Sulfate (Proventil) (2.5 MG/3ML) 0.083% inhalation solution 2.5 mg 2.5 mg Nebulizer PRN REVIEW OF SYSTEMS: See HPI - otherwise negative OBJECTIVE: Filed Vitals: 08/28/24 1448 BP: 147/80 Pulse: 89 Temp: 36.4 C (97.6 F) TempSrc: Tympanic SpO2: 95% Weight: 80.3 kg (177 lb) Wt Readings from Last 5 Encounters: 08/28/24 80.3 kg (177 lb) 08/14/24 80 kg (176 lb 4.8 oz) 08/07/24 81.2 kg (179 lb 1.3 oz) 07/08/24 86.9 kg (191 lb 9.6 oz) 07/02/24 86.6 kg (191 lb) PHYSICAL EXAM: ECOG: Performance Status 1 = 80-90% Symptoms but nearly ambulatory General Appearance: No acute distress HEENT: multiple erythematous lesions noted to tongue and lower lip Lymph Nodes: multiple firm cervical and supraclavicular lymph nodes on palpation <1 cm - tender to palpation Lungs/Thorax: Normal - Clear to auscultation Neurologic: Normal - Grossly intact LABS: Results for orders placed or performed in visit on 09/19/24 COMPREHENSIVE METABOLIC PANEL Result Value Ref Range BUN 11 6 - 20 mg/dL CREATININE 0.8 0.5 - 1.0 mg/dL EGFR 75 >=60 mL/min SODIUM 140 135 - 146 mmol/L POTASSIUM 4.6 3.5 - 5.1 mmol/L CHLORIDE 104 98 - 107 mmol/L CO2 25 22 - 32 mmol/L ANION GAP 11 7 - 15 mmol/L GLUCOSE 114 70 - 120 mg/dL Albumin 4.0 3.8 - 5.0 g/dL AST 16 10 - 35 U/L Alkaline Phosphatase 65 35 - 130 U/L Bilirubin, Total 0.6 <=1.2 mg/dL CALCIUM 9.8 8.4 - 10.2 mg/dL Protein 6.9 6.0 - 8.3 g/dL ALT 10 10 - 35 U/L CBC Result Value Ref Range WBC 10.66 4.00 - 10.80 K/uL RBC 5.01 3.85 - 5.15 M/uL HGB 15.7 (H) 12.0 - 15.3 g/dL HCT 45.8 (H) 36.0 - 45.2 % MCV 91.4 81.5 - 97.5 fL MCH 31.3 27.0 - 34.0 pg MCHC 34.3 32.0 - 36.0 g/dL RDW 13.7 11.5 - 15.5 % PLT 306 140 - 400 K/uL MPV 8.9 6.6 - 11.1 fL DIFFERENTIAL, AUTOMATED Result Value Ref Range WBC 10.66 4.00 - 10.80 K/uL Neutrophils % 67.6 40.0 - 75.0 % Lymphocytes % 14.2 (L) 18.0 - 42.0 % Monocytes % 8.6 1.0 - 11.0 % Eosinophils % 9.0 (H) 0.0 - 6.0 % Basophils % 0.6 0.0 - 2.0 % Absolute Neutrophils 7.21 1.80 - 7.70 K/uL Absolute Lymphocytes 1.51 1.00 - 4.80 K/ul Absolute Monocytes 0.92 0.00 - 1.10 K/uL Absolute Eosinophils 0.96 (H) 0.00 - 0.70 K/uL Absolute Basophils 0.06 0.00 - 0.20 K/uL *Note: Due to a large number of results and/or encounters for the requested time period, some results have not been displayed. A complete set of results can be found in Results Review. IMPRESSION/PLAN: Left upper lobe non-small cell lung cancer HSV Chemotherapy induced oral mucositis Esophageal candidiasis Acneiform rash Continues on Tagrisso 80 mg once a day Presents today d/t increased pain upon swallowing making oral intake difficult along with development of erythematous lesions to lip and tongue Recommended patient resume Acyclovir 400 mg TID x 5-7 days. Once cold sores resolve she should continue with prophylactic dosing of 400 mg BID. Continue with magic swizzle as needed for pain. Also placed prescription for Diflucan 100 mg daily x 14 days. Acneiform rash resolved with Doxycycline 100 mg BID x 7 days. In case rash returns provided patientwith an additional prescription for Doxycycline as well as Clindamycin 1% gel as well as instructions for use. Patient verbalized understanding. Planning for follow-up PET-CT scan about 3 months from the start of the Tagrisso. , somewhere in of October 2024. RTC as scheduled GHANSHYAM Baptiste documented in this encounter Nursing Notes * Gloria Alexandra MED ASSIST - 08/28/2024 2:53 PM EDT Patient identifed by name and [...] it for you? ALREADY ACTIVE Filed Vitals: 08/28/24 1448 BP: 147/80 Pulse: 89 Temp: 36.4 C (97.6 F) TempSrc: Tympanic SpO2: 95% Weight: 80.3 kg (177 lb) Patient was instructed to not get up on the exam table/exam chair until directed and assisted by their provider; patient is to remain seated in the chair/ wheelchair/ exam table/ exam chair for fall prevention and safety reasons. Patient is aware to have assistance to step down off exam table/exam chair with personnel. Patient voiced full comprehension of instructions. Pt stated she feels lumps in her throat and it feels like fluid. She has also been experiencing headaches. She had also vomited four days in a row. Swallowing hurts and she us unable to eat most foods. Not able to sleep at night. documented in this encounter Plan of Treatment Upcoming Encounters Date Type Department Care Team (Late st Contact Info) Description 09/11/2024 9:45 AM EDT Pharmacy Pharmacy Hematology Oncology [facility] [address] [place] [address] [facility] Hem/Onc [address] [place] [address] 09/25/2024 9:15 AM EDT Office Visit Hematology/Oncology [facility] [address] [facility] [place] [id number] Cortez Simmons MD [address] [facility] [place] [address] 10/08/2024 10:20 AM EST Office Visit Pulmonary Medicine, [facility] [address] [facility] [place] [address] Rico Wall MD [address] [place] [address] 10/27/2024 11:45 AM EST Imaging Radiology [facility] [address] [facility] [address] [facility] [place] [address] Health Maintenance Due Date Last Done Comments [...] 2024 08/14/2023, 09/12/2022, 09/06/2021, Additional history exists *NEPHROLOGY REFERRAL DUE TO RESISTANT HTN 08/31/2024 TSH 01/02/2025 01/02/2024, 02/24, 02/22/2023, Additional history [...] upper lobe of left lung (HCC)- Primary HSV (herpes simplex virus) infection Herpes simplex without mention of complication Oral mucositis (ulcerative) due to antineoplastic therapy Esophageal candidiasis (HCC) Candidiasis of the esophagus Acneiform rash Contact dermatitis and other eczema, due to unspecified cause documented in this encounter Advance Directives * [...] Directives occurred with: Not Discussed Care Teams Document Preparation Specialist Relationship Specialty Start Date End Date Cj Rico III, MD [address] [place] [address] PCP - General Family Medicine 05/19/14 documented as of this encounter
[2024-09-08] MEDS ORDERED: ONDANSETRON INJ 2 MG/ML 2 ML VIAL IV PRN (21:10)
[2024-09-08] MEDS: BACLOFEN 20 MG TAB PO SCH (21:35)
[2024-09-08] MEDS: OSIMERTINIB 80 MG PO SCH (21:36)
[2024-09-08] MEDS: ZOLPIDEM TARTRATE 5 MG TAB PO SCH (21:56)
[2024-09-08] MEDS: ACETAMINOPHEN 325 MG TAB PO PRN (21:59)
[2024-09-09] MEDS: LEVOTHYROXINE SODIUM 100 MCG TABLET PO SCH (04:40)
[2024-09-09 06:21] LABS: Hematocrit (blood only) 36.1 % (37.0-47.0); Hemoglobin 12.6 g/dl (12.0-16.0); Mean Corpuscular Hemoglobin 30.4 pg (25.0-34.0); Mean Corpuscular Hgb Conc 34.9 g/dL (32.0-36.0); Mean Corpuscular Volume 87.2 fL (80.0-100.0); Mean Platelet Volume 9.3 fL (9.4-12.4); Platelet Count 293 K/uL (130-400); RDW Coefficient of Variation 12.9 % (11.5-14.5); RDW Standard Deviation 41.7 fL (36.4-46.3); Red Blood Count 4.14 M/uL (4.20-5.40); White Blood Count 9.33 K/ul (4.8-10.8)
[2024-09-09 06:34] LABS: BUN Creatinine Ratio 14.1 (10-20); Creatinine Clr Calc Pharmacy 69.2 ml/min; Phosphorus 5.4 mg/dl (2.5-4.9); Potassium 4.5 mmol/L (3.5-5.1)
[2024-09-09] MEDS: TRIAMCINOLONE ACET 40 MG/ML VIAL ONE (08:38)
[2024-09-09] MEDS: KETOROLAC 30 MG/ML VIAL ONE (08:38)
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
[2024-09-09] MEDS ORDERED: INFLUENZA VACC TS2024-25(65y+)/PF (IIV3) 0.5mL Syr IM ONE (09:00)
--- NOTE | 2024-09-09 09:07 | Electrocardiogram Report ---
Test Reason : Blood Pressure : */* mmHG Vent. Rate : 91 BPM Atrial Rate : 91 BPM P-R Int : 128 ms QRS Dur : 68 ms QT Int : 360 ms P-R-T Axes : 48 2 20 degrees QTcB Int : 442 ms Normal sinus rhythm Nonspecific T wave abnormality Anterior leads Abnormal ECG When compared with ECG of 28-Jul-2024 05:23, Premature atrial complexes are no longer Present Nonspecific T wave abnormality now evident in Anterior leads Confirmed by Sanjay Patterson ([id number]) on 09/09/2024 9:07:33 AM Referred By: REFERRED SELF Confirmed By: Sanjay Patterson
[2024-09-09] MEDS: ASPIRIN 81 MG ECTAB PO SCH (09:20)
[2024-09-09] MEDS: predniSONE 20 MG TAB PO STA (09:20)
[2024-09-09] MEDS: CHOLECALCIFEROL 25 MCG (1000 UNITS) TAB PO SCH (09:20)
[2024-09-09] MEDS: CYCLOBENZAPRINE HCL 10 MG TAB PO SCH (09:21)
[2024-09-09] MEDS: lisinopril 20 MG TAB PO SCH (09:21)
[2024-09-09] MEDS: bisacodyL 10 MG SUPP PR SCH (09:21)
[2024-09-09] MEDS: METHYLNALTREXONE BROMIDE 12 MG/0.6 ML VIAL SQ SCH (09:22)
[2024-09-09] MEDS: LIDOCAINE 5% 1 PATCH TD STA (09:24)
[2024-09-09] MEDS ORDERED: Nursing to Pharmacy Communication SCH (12:30)
--- NOTE | 2024-09-09 14:46 | Hospitalist Progress Note ---
Date of Service September 09, 2024 Assessment & Plan (1) Cancer related pain: Plan: Cancer related pain, worsening Patient presenting with spasms and pain starting with the back and neck and now all over the body per patient. Patient states she is on Tagrisso since July 31. Continue home Dilaudid, add as needed IV Dilaudid for severe pain. Pain seems to be reasonably controlled during my examination this morning- currently 1 cyclobenzaprine 10 mg 3 times daily, hydromorphone 4 mg p.o. every 4 hourly as needed and 0.5 mg IV every 2 hourly as needed Appreciate pain therapy input and recommendation Will continue with current pain regimen and advised for PT and OT evaluation prior to discharge (2) Small cell lung cancer, left upper lobe: Plan: Recent diagnosis of metastatic small cell carcinoma of lung: Admitting CTAP with increasing pleural metastatic disease within the left hemithorax associated with a small malignant left pleural effusion. Follows Dr Simmons. Patient diagnosed with SCC in mid May, had been started on Tagrisso. Admitting CTAP reviewed, as above. Continue to follow-up with oncology and palliative care as an outpatient. Pleural effusion is not enough to be drained Plan Other significant medical conditions are as below: Constipation: Likely secondary to opiate use Patient reports not moving bowels in the last 5 days, not moving gas since yesterday. Continue with bowel regimen p.o. and ME. Chronic cough, likely mod persistent asthma: C/w home inhalers, monitor for escalation of care or asthma exacerbation. History of PE: Patient reports history of PE in 2001 postoperatively. Patient reports she was never put on any blood thinner. Not on any blood thinner currently. Other chronic medical condition: HTN, HLD, hypothyroidism etc. ---> continue with/resume home meds as when able. DVT prophylaxis: Heparin subcu DNR/DNI Dispo: PT/OT Admission and Anticipated Discharge Date Admission Date: September 08, 2024 Subjective 09/09/2024 The patient was seen and examined in medical floor She was admitted with increasing pain secondary to metastatic small cell lung cancer Her pain is much better following adjustment of her pain medications now She denies any palpitation, shortness of breath, nausea and/or vomiting Review of Systems Review of Systems: All systems reviewed and are unremarkable except as noted below Physical Exam Physical Exam: Lying in bed without any acute distress Constitutional: well developed, well nourished and + obese; not ill appearing Eyes: PERRL, conjunctivae normal, anicteric sclerae ENMT: external ear and nose normal, oropharynx normal Neck: trachea midline, no thyromegaly Respiratory: no respiratory distress Auscultation: + diminished lung sounds ( mostly on the left side upper and lower regions) Tenderness involving the left posterior lower chest wall Cardiovascular: Rate/Rhythm: regular rate and regular rhythm; not tachycardic Heart Sounds: normal S1 and normal S2; no murmur Extremities: no edema Gastrointestinal (Abdomen): Inspection/Auscultation: normal bowel sounds; abdomen not distended Percussion/Palpation: abdomen soft; abdomen nontender Musculoskeletal: No acute arthritis involving any of the joint Neurologic: normal touch/pain/proprioception and moves all extremities; no focal motor deficits Psychiatric: A+Ox3, euthymic affect Lymphatic: no cervical or axillary lymphadenopathy Results & Data Results & Data Vital Signs (Past 12 Hours) Vital Signs Temp Pulse Resp BP Pulse Ox O2 Del Method 09/09/24 08:00 Room Air 09/09/24 08:00 36.5 C 71 20 114/75 98 Room Air Laboratory Results Short CBC 09/09/24 Range/Units 05:54 WBC 9.33 (4.8-10.8) K/ul Hgb 12.6 (12.0-16.0) g/dl Hct 36.1 L (37.0-47.0) % Plt Count 293 (130-400) K/uL BMP 09/09/24 05:54 Sodium 133 L Potassium 4.5 Chloride 97 L Carbon Dioxide 29 BUN 10 Creatinine 0.71 Glucose 102 H Calcium 9.0 Urine 09/08/24 Range/Units 15:45 Urine Color Yellow Urine Appearance Clear (Clear) Urine pH 6.0 (4.5-7.5) Ur Specific [place] 1.017 (1.000-1.030) Urine Protein Negative (Negative) Urine Glucose (UA) Negative (Negative) Medications Administered Current Inpatient Medications Acetaminophen (Acetaminophen 325 Mg Tab) 650 mg PO Q4H PRN PRN Reason: Mild Pain (Scale 1, 2, 3) Stop: 10/08/24 21:09 Last Admin: 09/08/24 21:59 Dose: 650 mg Albuterol (Albuterol Hfa 8 Gm Inhaler) 2 puffs INH Q4H PRN PRN Reason: Wheezing Stop: 10/08/24 18:33 Albuterol (Albut/Ipratrop 3mg/0.5mg Neb 3 Ml Vial) 3 ml INH Q6H PRN; Protocol PRN Reason: Wheezing Stop: 10/08/24 18:33 Aspirin (Aspirin 81 Mg Ectab) 81 mg PO DAILY [facility] Stop: 10/09/24 08:59 Last Admin: 09/09/24 09:20 Dose: 81 mg Bisacodyl (Bisacodyl 10 Mg Supp) 10 mg ME DAILY [facility] Stop: 10/09/24 08:59 Last Admin: 09/09/24 09:21 Dose: Not Given Cyclobenzaprine HCl (Cyclobenzaprine Hcl 10 Mg Tab) 10 mg PO TID [facility] Stop: 10/09/24 08:59 Last Admin: 09/09/24 09:21 Dose: 10 mg Docusate Sodium (Docusate Sodium 100 Mg Cap) 100 mg PO BID [facility] Stop: 10/08/24 20:59 Last Admin: 09/09/24 09:21 Dose: 100 mg Famotidine (Famotidine 20 Mg Tab) 20 mg PO BID [facility] Stop: 10/08/24 20:59 Last Admin: 09/09/24 09:21 Dose: 20 mg Heparin Sodium (Porcine) (Heparin Sod 5,000 Unit/0.5 Ml Vial) 5,000 units SQ Q12 [facility] Stop: 10/08/24 20:59 Last Admin: 09/09/24 09:23 Dose: 5,000 units Hydrochlorothiazide (Hydrochlorothiazide 25 Mg Tab) 12.5 mg PO MoFr@0900 [facility] Stop: 10/12/24 08:59 Hydromorphone HCl (Hydromorphone Hcl 4 Mg Tab) 4 mg PO Q4H PRN PRN Reason: Moderate Pain (Scale 4,5,6) Stop: 09/22/24 18:33 Hydromorphone HCl (Hydromorphone Inj 0.5 Mg/0.5 Ml Syr) 0.5 mg IV Q2H PRN PRN Reason: Severe Pain (Scale 7, 8, 9,10) Stop: 09/22/24 18:36 Last Admin: 09/09/24 07:04 Dose: 0.5 mg Levothyroxine Sodium (Levothyroxine Sodium 100 Mcg Tablet) 100 mcg PO DAILYBB [facility] Stop: 10/09/24 06:29 Last Admin: 09/09/24 04:40 Dose: 100 mcg Lisinopril (Lisinopril 20 Mg Tab) 20 mg PO DAILY [facility] Stop: 10/09/24 08:59 Last Admin: 09/09/24 09:21 Dose: 20 mg Lorazepam (Lorazepam 0.5 Mg Tab) 0.5 mg PO Q6H PRN PRN Reason: anxiety, insomnia, nausea from cancer Stop: 10/08/24 18:33 Methylnaltrexone Warren (Methylnaltrexone Warren 12 Mg/0.6 Ml Vial) 12 mg SQ Q2D [facility]ALE Stop: 10/09/24 08:14 Last Admin: 09/09/24 09:22 Dose: 12 mg Miscellaneous (Remove Lidoderm Patch) 1 each N/A DAILY@2100 [facility] Stop: 09/09/24 21:01 Ondansetron HCl (Ondansetron Inj 2 Mg/Ml 2 Ml Vial) 4 mg IV Q4H PRN PRN Reason: Nausea And Vomiting Stop: 10/08/24 21:09 Osimertinib (Osimertinib [Tagrisso] 80 Mg Tablet (Pom)) 1 each PO QPM [facility] Stop: 10/08/24 20:59 Last Admin: 09/08/24 21:36 Dose: 1 each Polyethylene Glycol (Polyethylene (Miralax) 17 Gm Pack) 17 gm PO DAILY [facility] Stop: 10/08/24 18:59 Last Admin: 09/09/24 09:23 Dose: 17 gm Vitamin D (Cholecalciferol 25 Mcg (1000 Units) Tab) 25 mcg PO DAILY [facility] Stop: 10/09/24 08:59 Last Admin: 09/09/24 09:20 Dose: 25 mcg Zolpidem Tartrate (Zolpidem Tartrate 5 Mg Tab) 10 mg PO HS [facility] Stop: 10/08/24 20:59 Last Admin: 09/08/24 21:56 Dose: 10 mg
[2024-09-10 07:07] LABS: Basophils # (auto) 0.02 K/uL (0.00-0.20); Basophils % (auto) 0.2 %; Eosinophils # (auto) 0.08 K/uL (0.00-0.50); Hematocrit (blood only) 35.4 % (37.0-47.0); Hemoglobin 12.1 g/dl (12.0-16.0); Immature Granulocytes # (auto) 0.02 K/uL (0.01-0.20); Immature Granulocytes % (auto) 0.2 %; Lymphocytes # (auto) 1.31 K/uL (1.20-3.40); Lymphocytes % (auto) 16.2 %; Mean Corpuscular Hemoglobin 29.7 pg (25.0-34.0); Mean Corpuscular Hgb Conc 34.2 g/dL (32.0-36.0); Mean Corpuscular Volume 86.8 fL (80.0-100.0); Mean Platelet Volume 9.4 fL (9.4-12.4); Monocytes # (auto) 0.83 K/uL (0.11-0.59); Monocytes % (auto) 10.2 %; Neutrophils # (auto) 5.84 K/uL (1.40-6.50); Neutrophils % (auto) 72.2 %; Platelet Count 316 K/uL (130-400); RDW Coefficient of Variation 12.6 % (11.5-14.5); RDW Standard Deviation 40.2 fL (36.4-46.3); Red Blood Count 4.08 M/uL (4.20-5.40)
[2024-09-10 07:19] LABS: BUN Creatinine Ratio 25.8 (10-20); Calcium 8.8 mg/dl (8.6-10.3); Creatinine Clr Calc Pharmacy 74.4 ml/min; Magnesium 2.1 mg/dl (1.7-2.4); Phosphorus 4.6 mg/dl (2.5-4.9); Potassium 4.3 mmol/L (3.5-5.1)
[2024-09-10 08:19] VITALS: PULSE 72; RESP 20; TEMP 98.1; O2SAT 98
[2024-09-10] MEDS: LIDOCAINE 5% 1 PATCH TD SCH (09:54)
[2024-09-10] MEDS: HYDROmorphone HCL 4 MG TAB PO PRN (09:54)
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
[2024-09-10] MEDS: predniSONE 20 MG TAB PO STA (11:02)
[2024-09-10 13:52] VITALS: BP 114/75
[2024-09-12] MEDS ORDERED: hydroCHLOROthiazide 25 MG TAB PO SCH (09:00)
== END 2024-09-10 14:21 | disposition home health service (06) | DRG 948 ==
LOC: ED 12:01 → 3E 17:55 → SUATTDRO 17:55 → 3E 20:50

== ENCOUNTER 2024-11-25 13:02 | Inpatient (IN) ==
--- NOTE | 2024-11-25 13:09 | ED Triage Note ---
Date of Service November 25, 2024 Provider in Triage Author: Donte Toussaint History of Present Illness This patient was briefly evaluated while in triage. An abbreviated physical exam was performed. This patient is a 69-year-old Female who presents to the ED for evaluation worsening SOB, left back pain hx of metastatic lung cancer - active chemo Physical Exam GENERAL: NAD, VSS CARDIOVASCULAR: RRR RESPIRATORY: BS diminished, wheezes and ronchi throughout ABDOMEN: BS x 4. Nontender to palpation. Initial orders for labs and / or imaging were placed and patient was placed in the waiting area until a bed is available. Please see further documentation for the full ED course.
[2024-11-25 13:48] LABS: Basophils # (auto) 0.07 K/uL (0.00-0.20); Basophils % (auto) 0.6 %; Eosinophils # (auto) 1.06 K/uL (0.00-0.50); Eosinophils % (auto) 8.8 %; Hemoglobin 14.4 g/dl (12.0-16.0); Immature Granulocytes # (auto) 0.05 K/uL (0.01-0.20); Immature Granulocytes % (auto) 0.4 %; Lymphocytes # (auto) 0.86 K/uL (1.20-3.40); Lymphocytes % (auto) 7.1 %; Mean Corpuscular Hemoglobin 30.6 pg (25.0-34.0); Mean Corpuscular Hgb Conc 35.1 g/dL (32.0-36.0); Mean Corpuscular Volume 87.2 fL (80.0-100.0); Mean Platelet Volume 9.3 fL (9.4-12.4); Monocytes # (auto) 1.02 K/uL (0.11-0.59); Monocytes % (auto) 8.4 %; Neutrophils # (auto) 9.05 K/uL (1.40-6.50); Neutrophils % (auto) 74.7 %; Platelet Count 332 K/uL (130-400); RDW Coefficient of Variation 13.5 % (11.5-14.5); RDW Standard Deviation 43.4 fL (36.4-46.3); White Blood Count 12.11 K/ul (4.8-10.8)
[2024-11-25 14:07] LABS: Alanine Aminotransferase 6 U/L (7-52); Albumin Globulin Ratio 1.5 (0.9-2); Albumin Level 3.7 gm/dl (3.4-5.0); Alkaline Phosphatase 62 U/L (34-104); Anion Gap 9 (3-11); Aspartate Aminotransferase 13 U/L (13-39); BUN Creatinine Ratio 14.9 (10-20); Bilirubin,Total 0.5 mg/dl (0.2-1.0); Blood Urea Nitrogen 10 mg/dl (6-23); Carbon Dioxide 24 mmol/L (21-32); Chloride 103 mmol/L (98-107); Globulin 2.5 gm/dl (2.5-4.0); Glucose 104 mg/dl (70-99(Fasting)); Magnesium 1.8 mg/dl (1.7-2.4); Sodium 136 mmol/L (136-145); Total Protein 6.2 gm/dl (6.0-8.3)
[2024-11-25 14:09] LABS: iSTAT Creatinine 0.7 mg/dl (0.6-1.3); iSTAT Ionized Calcium 1.1 mmol/l (1.12-1.32); iSTAT Potassium 4.4 mmol/L (3.3-5.0)
[2024-11-25 14:17] LABS: Troponin I High Sensitivity 7.1 pg/ml (0-14)
[2024-11-25 14:23] LABS: INR 1.2 (0.9-1.1); Partial Thromboplastin Time 27 Seconds (21-31); Prothrombin Time 12.5 Seconds (9.0-12.0)
[2024-11-25] MEDS: OPTIRAY 320 125ml IV ONE (14:28)
--- NOTE | 2024-11-25 15:05 | CT Scan Report ---
CT ANGIOGRAPHY OF THE CHEST, PULMONARY EMBOLUS PROTOCOL CLINICAL HISTORY: Dyspnea. Lung cancer. COMPARISON STUDY: Chest CT October 14, 2024. TECHNIQUE: Following IV administration of 118 mL of Optiray, helical axial images of the chest were o btained utilizing the pulmonary embolus protocol. Maximal intensity projections and sagittal and cor onal reformats were viewed on an independent 3D workstation. IV contrast was administered without co mplication. Automated exposure control was utilized for the study. A dose lowering technique was ut ilized adhering to the principles of ALARA. CT DOSE: 835.05 mGy.cm FINDINGS: No pulmonary emboli are identified. There is no thoracic aortic dissection. There is no pe ricardial effusion. A large malignant left pleural effusion has significantly increased in size since CT of October 14, 2024. There is no pneumothorax. There is a small right pleural effusion. Extensiv e left lung airspace opacity with volume loss is noted. This has progressed since prior examination. The previously described left apical mass is obscured on this exam. Pleural metastatic disease within the left hemithorax has mildly progressed. Thoracic lymphadenopathy as also mildly progressed. A lef t supraclavicular lymph node on image 175 of 211 measures 2 x 1.4 cm, previously 1.5 x 1.4 cm. A left axillary lymph node measures 2.8 x 1.9 cm. This was partially imaged on prior exam. An additional le ft axillary lymph node measures 1.6 x 1.4 cm, previously 1.4 x 1.1 cm. Mediastinal and hilar adenopat hy has also progressed. Several small right lower lobe pulmonary nodules measuring up to 5 mm are unc hanged. There are mild groundglass opacities within the right lung. Status post T12 kyphoplasty. Visu alized portions of the upper abdomen are unremarkable. IMPRESSION: 1. No pulmonary emboli identified. 2. Mild progression of metastatic disease since chest CT of October 14, 2024, as described above. La rge malignant left pleural effusion which has significantly increased in size since prior exam. This results in diminished aeration of the left lung. 3. Mild progression of thoracic lymphadenopathy. 4. No significant change in several small right lower lobe pulmonary nodules. ACT 112: Negative or not required by law. Electronically signed by: Arsen Dominguez M.D. 11/25/2024 3:02 PM
[2024-11-25 15:22] LABS: Adenovirus PCR Not Detected (NotDetected); Bordetella parapertussis PCR Not Detected (NotDetected); Bordetella pertussis PCR Not Detected (NotDetected); Chlamydia pneumoniae PCR Not Detected (NotDetected); Coronavirus 229E PCR Not Detected (NotDetected); Coronavirus CoV-2 (COVID19)PCR Not Detected (NotDetected); Coronavirus HKU1 PCR Not Detected (NotDetected); Coronavirus NL63 PCR Not Detected (NotDetected); Coronavirus OC43PCR Not Detected (NotDetected); Human Metapneumovirus PCR Not Detected (NotDetected); Influenza A PCR Not Detected (NotDetected); Influenza B PCR Not Detected (NotDetected); Mycoplasma pneumoniae PCR Not Detected (NotDetected); Parainfluenza Virus 1 PCR Not Detected (NotDetected); Parainfluenza Virus 2 PCR Not Detected (NotDetected); Parainfluenza Virus 3 PCR Not Detected (NotDetected); Parainfluenza Virus 4 PCR Not Detected (NotDetected); Respiratory Syncytial VirusPCR Not Detected (NotDetected); Rhinovirus/Enterovirus PCR Not Detected (NotDetected)
[2024-11-25] MEDS: MoRPHine SULFATE 2 MG/ML CARP IV STA (15:53)
[2024-11-25] MEDS: ONDANSETRON INJ 2 MG/ML 2 ML VIAL IV STA (15:53)
--- NOTE | 2024-11-25 15:53 | Pulmonary Consultation ---
Date of Consultation November 25, 2024 Assessment & Plan (1) Pleural effusion: (2) Small cell lung cancer, left upper lobe: (3) SOB (shortness of breath): (4) Sleep apnea: (5) Chronic obstructive pulmonary disease: Plan CT chest 11/25/2024 personally reviewed: Large left-sided pleural effusion with compressive atelectasis of whole left lower lobe Interlobular thickening in the left upper lobe Mediastinal shift to the right There is mediastinal as well as hilar lymphadenopathy -- Pleural effusion Large left-sided Respiratory BioFire negative for everything -- History of metastatic squamous cell carcinoma Diagnosed April 2024 As per the patient latest PET/CT shows worsening of the findings Had MRI of the brain a month ago which did not show any metastasis as per the patient On osimertinib --COPD with emphysema Does not seem to be in exacerbation Only on albuterol and DuoNebs at home Would recommend BrezTri or Trelegy on discharge -- JOLANTA On BiPAP 11/01 at home Plan: Pigtail catheter placement today for the large left-sided pleural effusion There is high probability that it might be pneumo ex vacuo given the history of lung cancer. If the pleural fluid comes back in the near future then Pleurx catheter could be thought of Overall prognosis is poor Please note the above document was generated using voice recognition software. It may contain grammatical, syntax or spelling errors.Any formal questions or concerns about the content, text or information contained within the body of this dictation should be directly addressed to the provider for clarification. History of Present Illness History of Present Illness 69-year-old female presented to the hospital with complaints of shortness of breath Past medical history: Squamous cell lung cancer diagnosed in 2023, metastatic, GERD, anxiety, hypothyroidism Pulmonary consulted for large left-sided pleural effusion. The time of examination patient says that she has been having worsening shortness of breath going on for approximately 10 days progressively getting worse She is also having difficulty swallowing. Denies any chest pain. Occasional cough with clear phlegm. No hemoptysis No nausea vomiting Does complain of chronic diarrhea which has not changed in intensity or frequency. Denies any unusual headache or blurry vision No fever or chills Social history: Approximately 33-wbsy-nlyn smoking history, quit a long time ago No history of lung cancer in the family Allergies Allergy/AdvReac Type Severity Reaction Status Date / Time losartan Allergy Severe SWELLING Verified 11/25/24 17:40 OF FACE, LIPS & TONGUE Penicillins Allergy Severe SWELLING Verified 11/25/24 17:40 OF FACE, LIPS & TONGUE fentanyl Allergy Intermediate itching Verified 11/25/24 17:40 oxycodone Allergy Intermediate ITCHING Verified 11/25/24 17:40 ALL OVER tramadol AdvReac Severe Hallucinati Verified 11/25/24 17:40 ons Sulfa (Sulfonamide AdvReac Intermediate URNIARY Verified 11/25/24 17:40 Antibiotics) FREQUENCY sulfamethoxazole AdvReac Intermediate URNIARY Verified 11/25/24 17:40 FREQUENCY topiramate AdvReac Intermediate Blurry Verified 11/25/24 17:40 Vision metronidazole AdvReac Mild STOMACH Verified 11/25/24 17:40 PAIN trimethoprim AdvReac Mild URINARY Verified 11/25/24 17:40 FREQUENCY Home Medications Medication Instructions Recorded Confirmed Type acyclovir 400 mg tablet 400 mg PO TID PRN Cold Sore(s) 08/22/18 11/25/24 History albuterol sulfate 90 mcg/actuation 2 puff inhalation Q4H PRN Wheezing 08/22/18 11/25/24 History aerosol inhaler (Ventolin HFA) levothyroxine 100 mcg tablet 100 mcg PO DAILYBB 08/22/18 11/25/24 History alirocumab 75 mg/mL subcutaneous 75 mg subcut Q14D 09/19/23 11/25/24 History pen injector (Praluent Pen) aspirin 81 mg tablet,delayed 81 mg PO DAILY 09/19/23 11/25/24 History release cholecalciferol (vitamin D3) 25 25 mcg PO DAILY 09/19/23 11/25/24 History mcg (1,000 unit) capsule famotidine 20 mg tablet 20 mg PO BID 09/19/23 11/25/24 History ipratropium 0.5 mg-albuterol 3 mg 3 ml inhalation Q6H PRN Wheezing 09/19/23 11/25/24 History (2.5 mg base)/3 mL nebulization soln lorazepam 0.5 mg tablet (Ativan) 0.5 mg PO Q6H PRN anxiety, 09/08/24 11/25/24 History insomnia, nausea from cancer osimertinib 80 mg tablet (Tagrisso) 80 mg PO PM 09/08/24 11/25/24 History zolpidem 10 mg tablet 10 mg PO HS 09/08/24 11/25/24 History lidocaine 4 % topical patch 1 patch topical DAILY PRN pain #30 09/10/24 11/25/24 Rx ea baclofen 10 mg tablet 20 mg PO BID 09/11/24 11/25/24 History prochlorperazine maleate 10 mg 10 mg PO DAILY PRN Nausea And 09/11/24 11/25/24 History tablet Vomiting lisinopril 20 mg tablet 10 mg PO DAILY 09/25/24 11/25/24 History hydromorphone 4 mg tablet 4 mg PO Q4H PRN pain 1 month #90 11/06/24 11/25/24 Rx (Dilaudid) tabs docusate sodium 100 mg capsule 100 mg PO BID PRN Constipation 11/25/24 11/25/24 History guaifenesin 600 mg tablet, 600 mg PO BID PRN chest congestion 11/25/24 11/25/24 History extended release 12 hr (Mucinex) morphine 15 mg tablet,extended 15 - 30 mg PO Q12H cancer pain and 11/25/24 11/25/24 History release (MS Contin) dyspnea ondansetron HCl 8 mg tablet 8 mg PO Q6H PRN Nausea And Vomiting 11/25/24 11/25/24 History polyethylene glycol 3350 17 gram 17 g PO DAILY PRN Constipation 11/25/24 11/25/24 History oral powder packet (Miralax) Patient History Medical History Incomplete rotator cuff tear or rupture of left shoulder, not specified as traumatic Encounter for pre-operative examination Intractable back pain Compression fracture of T12 vertebra Prediabetes RECENT NEW SCRIPT FOR METFORMIN Hx of Clostridium difficile infection APPROX 5 YRS AGO Hx of discitis treated at [facility] (2019) Hx of deep venous thrombosis ~2019 Pulmonary embolism hx of 2006 Pseudogout Hypothyroidism Chronic back pain Osteoarthritis Abdominal hernia no surgery Peripheral neuropathy Migraine hx Chronic obstructive pulmonary disease mild Sleep apnea NO MACHINE Surgical History History of right cataract surgery SEP 2020 History of anesthesia reaction EXTREMELY SLOW TO WAKE UP (COLON RESECTION) History of dilatation and curettage History of total abdominal hysterectomy and bilateral salpingo-oophorectomy History of carpal tunnel release RT History of bunionectomy RT FOOT History of appendectomy History of esophagogastroduodenoscopy (EGD) History of colonoscopy History of tooth extraction History of tonsillectomy History of adenoidectomy S/P ablation of atrial fibrillation ~2014 Family History Mother Family history of esophageal cancer Hearing loss Father Hearing loss Brother Hearing loss Other Cancer Gallbladder disease Heart disease Hypertension Lung disease No family history of adverse response to anesthesia No family history of bleeding disorder Stroke Social History Smoking Status: Never smoker Tobacco Type: Cigarettes Second Hand Exposure: No; Do You Dip or Chew Tobacco: No; Hx Alcohol Use: Yes Alcohol type: beer and wine Hx Substance Use: No Preferred Language: Yoruba Communication Ability: Effective [employer] Executive Required: No Beliefs That Will Affect Care: None Current Living Situation: Alone current occupational status: retired Feels Safe at Home: Yes Assistive Devices: None Review of Systems 2 Review of Systems: All systems reviewed & are unremarkable except as noted in HPI & below Physical Exam 2 Physical Exam: Constitutional: No acute distress HEENT: EOMI, PERRLA Respiratory system: Decreased air entry on the left side, no wheeze, no rhonchi, positive crackles bilaterally CVS: S1-S2 positive, no murmurs or gallops, accentuated P2 Abdomen: Soft, nontender, nondistended, positive bowel sounds x4 Extremities: +2 pulses bilaterally radialis/ dorsalis pedis, no cyanosis, +1 pitting edema bilateral lower extremity Neuro: Awake alert oriented x3 Psych: Normal mood and affect G/U: No Pope Skin: no rashes, warm and dry Lymphatic: no cervical or axillary lymphadenopathy Results & Data Results & Data Vital Signs (Past 12 Hours) Vital Signs Temp Pulse Pulse Resp BP BP Pulse Ox 11/25/24 15:10 95 H 20 94 11/25/24 15:10 99 H 22 135/75 94 11/25/24 14:18 97 H 11/25/24 13:25 11/25/24 13:06 36.8 C 108 H 18 149/83 H 92 O2 Del Method 11/25/24 15:10 Room Air 11/25/24 15:10 11/25/24 14:18 11/25/24 13:25 Room Air 11/25/24 13:06 Room Air Laboratory Results 11/25/24 13:20 11/25/24 13:20 PG Care Time/CCT Total # of Minutes Spent Total Time Spent with Patient: Total time spent is greater than 50% in coordination of care (as documented) at patient's floor/unit and/or counseling patient: Coding Level of Care Code 88389 INT INP/OBS CARE 375MIN Diagnoses Pleural effusion J90 Small cell lung cancer, left upper lobe C34.12 SOB (shortness of breath) R06.02 Sleep apnea G47.30 Chronic obstructive pulmonary disease J44.9
[2024-11-25] MEDS: LIDOCAINE 1% LOCAL 20 ML VIAL ONE (17:11)
--- NOTE | 2024-11-25 17:16 | Emergency Department Note ---
History of Present Illness General Chief Complaint: Shortness of Breath/Dyspnea Stated Complaint: TROUBLE BREATHING Time Seen by Provider: 11/25/24 13:32 History of Present Illness Provider Complaint: shortness of breath and cough Onset (ago): week(s) (3) Consistency/Duration: + progressively worsening Maximum Pain Intensity: 6 Known history of: other (Lung cancer) Associated symptoms: no chest pain, no fever, no wheezing or no abdominal pain HPI Narrative: Patient reporting back pain. Patient referred here by her oncologist Dr. Simmons from [facility]. Home Medications Medication Instructions Recorded Confirmed Type acyclovir 400 mg tablet 400 mg PO TID PRN Cold Sore(s) 08/22/18 09/11/24 History albuterol sulfate 90 mcg/actuation 2 puff inhalation Q4H PRN Wheezing 08/22/18 09/11/24 History aerosol inhaler (Ventolin HFA) levothyroxine 100 mcg tablet 100 mcg PO DAILYBB 08/22/18 09/11/24 History alirocumab 75 mg/mL subcutaneous 75 mg subcut .[id number] 09/19/23 09/11/24 History pen injector (Praluent Pen) aspirin 81 mg tablet,delayed 81 mg PO DAILY 09/19/23 09/11/24 History release cholecalciferol (vitamin D3) 25 25 mcg PO DAILY 09/19/23 09/11/24 History mcg (1,000 unit) capsule famotidine 20 mg tablet 20 mg PO BID 09/19/23 09/11/24 History ipratropium 0.5 mg-albuterol 3 mg 3 ml inhalation Q6H PRN Wheezing 09/19/23 09/11/24 History (2.5 mg base)/3 mL nebulization soln lorazepam 0.5 mg tablet (Ativan) 0.5 mg PO Q6H PRN anxiety, 09/08/24 09/11/24 History insomnia, nausea from cancer osimertinib 80 mg tablet (Tagrisso) 80 mg PO PM 09/08/24 09/11/24 History zolpidem 10 mg tablet 10 mg PO HS 09/08/24 09/11/24 History docusate sodium 100 mg capsule 100 mg PO BID #60 caps 09/10/24 09/11/24 Rx lidocaine 4 % topical patch 1 patch topical DAILY PRN pain #30 09/10/24 09/11/24 Rx ea polyethylene glycol 3350 17 gram 17 g PO DAILY #30 ea 09/10/24 09/11/24 Rx oral powder packet (Miralax) prednisone 20 mg tablet See Rx Instructions .Route 09/10/24 09/11/24 Rx .COMPLEX #20 tabs baclofen 10 mg tablet 20 mg PO BID 09/11/24 09/11/24 History prochlorperazine maleate 10 mg 10 mg PO DAILY PRN 09/11/24 09/11/24 History tablet lisinopril 20 mg tablet 10 mg PO DAILY 09/25/24 09/25/24 History guaifenesin 600 mg tablet, 600 mg PO BID #60 tabs 11/06/24 11/06/24 Rx extended release 12 hr (Mucinex) hydromorphone 4 mg tablet 4 mg PO Q4H PRN pain 1 month #90 11/06/24 11/06/24 Rx (Dilaudid) tabs morphine 15 mg tablet,extended 15 mg PO Q12H cancer pain and 11/06/24 11/06/24 Rx release (MS Contin) dyspnea 1 month #60 tabs Allergies Allergy/AdvReac Type Severity Reaction Status Date / Time losartan Allergy Severe SWELLING Verified 09/11/24 14:35 OF FACE, LIPS & TONGUE Penicillins Allergy Severe SWELLING Verified 09/11/24 14:35 OF FACE, LIPS & TONGUE fentanyl Allergy Intermediate itching Verified 09/11/24 14:35 oxycodone Allergy Intermediate ITCHING Verified 09/11/24 14:35 ALL OVER tramadol AdvReac Severe Hallucinati Verified 09/11/24 14:35 ons Sulfa (Sulfonamide AdvReac Intermediate URNIARY Verified 09/11/24 14:35 Antibiotics) FREQUENCY sulfamethoxazole AdvReac Intermediate URNIARY Verified 09/11/24 14:35 FREQUENCY topiramate AdvReac Intermediate Blurry Verified 09/11/24 14:35 Vision metronidazole AdvReac Mild STOMACH Verified 09/11/24 14:35 PAIN trimethoprim AdvReac Mild URINARY Verified 09/11/24 14:35 FREQUENCY Past Med/Surg History Problem List (Updated 11/25/24 @ 17:20 by Michael Figueroa MD) Pleural effusion (Acute) Back muscle spasm Small cell lung cancer, left upper lobe Opioid-induced constipation Acute generalized abdominal pain (Acute) Acute left flank pain (Acute) Dyspnea and respiratory abnormalities Drug-induced skin rash Nausea Anxiety associated with cancer diagnosis Anxiety Primary lung squamous cell carcinoma (Acute) Advanced care planning/counseling discussion Palliative care by specialist Weakness generalized Cancer related pain (Acute) Myofascial pain (Acute) Cervicalgia Lung cancer (Acute) Weak Chest pain (Acute) SOB (shortness of breath) (Acute) Epicondylitis, lateral, right Rotator cuff tear, left Abdominal pain (Acute) Diverticulitis Lumbar radiculopathy (Acute) Spondylisthesis (Acute 03/24/14) Urinary problem URINARY LEAKAGE Osteomyelitis (Acute) Discitis (Acute) Lymphadenopathy Tinnitus of both ears Sensorineural hearing loss of both ears Arthritis Gout Adverse reaction to anesthetic agent Unable to come out of it for 3 days Rhinitis GERD (gastroesophageal reflux disease) Encounter for pre-operative examination HLD (hyperlipidemia) (Chronic) GERD (gastroesophageal reflux disease) (Chronic) S/P colon resection (Chronic) chronic diverticulits Hx of fusion of cervical spine (Chronic) (at least 3 levels fused together) Full ROM S/P lumbar fusion (Chronic) Pneumonia hx Bronchitis hx Asthma (Chronic) inhalers prn High blood pressure (Chronic) Irritable colon (Chronic Unknown) Medical History Incomplete rotator cuff tear or rupture of left shoulder, not specified as traumatic Encounter for pre-operative examination Intractable back pain Compression fracture of T12 vertebra Prediabetes RECENT NEW SCRIPT FOR METFORMIN Hx of Clostridium difficile infection APPROX 5 YRS AGO Hx of discitis treated at [facility] (2019) Hx of deep venous thrombosis ~2018 Pulmonary embolism hx of 2006 Pseudogout Hypothyroidism Chronic back pain Osteoarthritis Abdominal hernia no surgery Peripheral neuropathy Migraine hx Chronic obstructive pulmonary disease mild Sleep apnea NO MACHINE Surgical History History of right cataract surgery SEP 2020 History of anesthesia reaction EXTREMELY SLOW TO WAKE UP (COLON RESECTION) History of dilatation and curettage History of total abdominal hysterectomy and bilateral salpingo-oophorectomy History of carpal tunnel release RT History of bunionectomy RT FOOT History of appendectomy History of esophagogastroduodenoscopy (EGD) History of colonoscopy History of tooth extraction History of tonsillectomy History of adenoidectomy S/P ablation of atrial fibrillation ~2014 Family History Mother Family history of esophageal cancer Hearing loss Father Hearing loss Brother Hearing loss Other Cancer Gallbladder disease Heart disease Hypertension Lung disease No family history of adverse response to anesthesia No family history of bleeding disorder Stroke Social History Smoking Status: Never smoker Tobacco Type: Cigarettes Second Hand Exposure: No; Do You Dip or Chew Tobacco: No; Hx Alcohol Use: Yes Alcohol type: beer and wine Hx Substance Use: No Preferred Language: Hungarian Communication Ability: Effective Flight Communications Specialist Required: No Beliefs That Will Affect Care: None Current Living Situation: Alone current occupational status: retired Feels Safe at Home: Yes Assistive Devices: None Physical Exam 2 Vital Signs: Vital Signs - 24 hr 11/25/24 13:06 11/25/24 13:25 11/25/24 14:18 Temperature 36.8 C Temperature Source Temporal Artery Sc an Pulse Rate 108 H 97 H Pulse Rate [Left F raoul] Pulse Rhythm Respiratory Rate 18 Respiratory Effort / Characteristics Non-Labored Sponta neous Respiratory Depth Normal Blood Pressure 149/83 H Blood Pressure [Le ft Arm] Blood Pressure Lizeth n 105 Blood Pressure Lizeth n [Left Arm] Pulse Oximetry 92 Oxygen Delivery Me thod Room Air Room Air Sepsis Recent Feve r Within 48 Hours No Sepsis New/Unexpla ined Change in Men judy Status No Sepsis Action Take n by Nursing No Action Required 11/25/24 15:10 11/25/24 15:10 Temperature Temperature Source Pulse Rate 95 H Pulse Rate [Left F raoul] 99 H Pulse Rhythm Regular Respiratory Rate 22 20 Respiratory Effort / Characteristics Respiratory Depth Blood Pressure Blood Pressure [Le ft Arm] 135/75 Blood Pressure Lizeth n Blood Pressure Lizeth n [Left Arm] 95 Pulse Oximetry 94 94 Oxygen Delivery Me thod Room Air Sepsis Recent Feve r Within 48 Hours Sepsis New/Unexpla ined Change in Men judy Status Sepsis Action Take n by Nursing Physical Exam: Physical Exam GENERAL: oriented to person, place, and time. appears well-developed and well- nourished. HENT: Exam performed. - Head: Normocephalic and atraumatic. EYES: Conjunctivae and EOM are normal. Right eye exhibits no discharge. Left eye exhibits no discharge. No scleral icterus. NECK: Normal range of motion. Neck supple. No JVD present. CV: Normal rate, regular rhythm, normal heart sounds and intact distal pulses. There is no peripheral edema. Palpable radial pulses bue. PULM/CHEST: Diminished breath sounds bilaterally. ABD: The abdomen is soft. There is no tenderness. NEURO: Motor and sensation grossly intact. SKIN: Skin is warm and dry. He is not diaphoretic. PSYCH: normal mood and affect. Behavior is normal. Judgment and thought content normal. Course Course 1332: The patient was evaluated in room C2. A complete history and physical exam was performed Cardiac monitoring: An order was placed for continuous cardiac monitoring. The monitor shows a rate of 100 with sinus rhythm interpreted by ma 1527: Vital signs stable. Labs are unremarkable. CT of the chest negative for PE. Imaging shows a large possibly malignant pleural effusion. Discussed the case with on-call pulmonology Dr. Davis. Patient will be admitted. Pulmonology states they will decide whether to do a thoracentesis or pigtail chest tube for the patient. [facility]. Administered Medications Discontinued Medications Ioversol (Optiray 320 125ml) 118 ml IV ONCE ONE Stop: 11/25/24 14:28 Last Admin: 11/25/24 14:28 Dose: 118 ml Documented By: KATHI Morphine Sulfate (Morphine Sulfate 2 Mg/Ml Carp) 2 mg IV NOW STA Stop: 11/25/24 15:22 Last Admin: 11/25/24 15:53 Dose: 2 mg Documented By: RADU Ondansetron HCl (Ondansetron Inj 2 Mg/Ml 2 Ml Vial) 4 mg IV NOW STA Stop: 11/25/24 15:47 Last Admin: 11/25/24 15:53 Dose: 4 mg Documented By: RADU Medical Decision Making Laboratory Data Attestation: I reviewed the patient's lab results. 11/25/24 13:20 11/25/24 13:20 Lab Results 11/25/24 11/25/24 11/25/24 Range/Units 13:20 13:57 14:14 WBC 12.11 H (4.8-10.8) K/ul RBC 4.70 (4.20-5.40) M/uL Hgb 14.4 (12.0-16.0) g/dl POC Hgb 15.0 (12.0-16.0) g/dl Hct 41.0 (37.0-47.0) % POC Hct 44 (37-47) % MCV 87.2 (80.0-100.0) fL MCH 30.6 (25.0-34.0) pg MCHC 35.1 (32.0-36.0) g/dL RDW Std Deviation 43.4 (36.4-46.3) fL RDW Coeff of Viky 13.5 (11.5-14.5) % Plt Count 332 (130-400) K/uL MPV 9.3 L (9.4-12.4) fL Immature Gran % (Auto) 0.4 % Neut % (Auto) 74.7 % Lymph % (Auto) 7.1 % [place]ou[place] % (Auto) 8.4 % Eos % (Auto) 8.8 % Baso % (Auto) 0.6 % Neut # (Auto) 9.05 H (1.40-6.50) K/uL Lymph # (Auto) 0.86 L (1.20-3.40) K/uL [place] # (Auto) 1.02 H (0.11-0.59) K/uL Eos # (Auto) 1.06 H (0.00-0.50) K/uL Baso # (Auto) 0.07 (0.00-0.20) K/uL Immature Gran # (Auto) 0.05 (0.01-0.20) K/uL PT 12.5 H (9.0-12.0) Seconds INR 1.2 H (0.9-1.1) APTT 27 (21-31) Seconds PTT Ratio 1.0 POC Sodium 136 (135-144) mmol/L Sodium 136 (136-145) mmol/L POC Potassium 4.4 (3.3-5.0) mmol/L Potassium 4.0 (3.5-5.1) mmol/L POC Chloride 101 (101-112) mmol/L Chloride 103 (98-107) mmol/L Carbon Dioxide 24 (21-32) mmol/L POC Total CO2 26 (24-31) mmol/L Anion Gap 9 (3-11) POC Anion Gap 14.0 L (16-25) mmol/L POC BUN 9 (7-18) mg/dl BUN 10 (6-23) mg/dl Creatinine 0.67 (0.6-1.2) mg/dl POC Creatinine 0.7 (0.6-1.3) mg/dl Est Cr Clr Drug Dosing Not Reportable eGFR 93.39 BUN/Creatinine Ratio 14.9 (10-20) Glucose 104 H (70-99(Fasting)) mg/dl POC Glucose (other) 97 (70-99) mg/dl Calcium 9.0 (8.6-10.3) mg/dl POC Ioniz Calcium Reginaldo 1.10 L (1.12-1.32) mmol/l Magnesium 1.8 (1.7-2.4) mg/dl Total Bilirubin 0.5 (0.2-1.0) mg/dl AST 13 (13-39) U/L ALT 6 L (7-52) U/L Alkaline Phosphatase 62 (34-104) U/L Troponin I High Sens 7.1 (0-14) pg/ml Total Protein 6.2 (6.0-8.3) gm/dl Albumin 3.7 (3.4-5.0) gm/dl Globulin 2.5 (2.5-4.0) gm/dl Albumin/Globulin Ratio 1.5 (0.9-2) Adenovirus (PCR) Not Detected (NotDetected) B. pertussis DNA (PCR) Not Detected (NotDetected) B.parapertussis DNA PCR Not Detected (NotDetected) C. pneumoniae DNA (PCR) Not Detected (NotDetected) Coronavirus OC43 (PCR) Not Detected (NotDetected) Coronavirus HKU1 (PCR) Not Detected (NotDetected) Coronavirus 229E (PCR) Not Detected (NotDetected) SARS-CoV-2 (PCR) Not Detected (NotDetected) Coronavirus NL63 (PCR) Not Detected (NotDetected) Human Metapneumovir PCR Not Detected (NotDetected) Influenza Type A (PCR) Not Detected (NotDetected) Influenza Type B (PCR) Not Detected (NotDetected) M. pneumoniae (PCR) Not Detected (NotDetected) Parainfluenza 1 (PCR) Not Detected (NotDetected) Parainfluenza 2 (PCR) Not Detected (NotDetected) Parainfluenza 3 (PCR) Not Detected (NotDetected) Parainfluenza 4 (PCR) Not Detected (NotDetected) RSV (PCR) Not Detected (NotDetected) Entero/Rhino (PCR) Not Detected (NotDetected) Imaging Data Radiologist's Impression: Chest CTA 11/25/24 13:09 CT ANGIOGRAPHY OF THE CHEST, PULMONARY EMBOLUS PROTOCOL CLINICAL HISTORY: Dyspnea. Lung cancer. COMPARISON STUDY: Chest CT October 14, 2024. TECHNIQUE: Following IV administration of 118 mL of Optiray, helical axial images of the chest were obtained utilizing the pulmonary embolus protocol. Maximal intensity projections and sagittal and coronal reformats were viewed on an independent 3D workstation. IV contrast was administered without complication. Automated exposure control was utilized for the study. A dose lowering technique was utilized adhering to the principles of ALARA. CT DOSE: 835.05 mGy.cm FINDINGS: No pulmonary emboli are identified. There is no thoracic aortic dissection. There is no pericardial effusion. A large malignant left pleural effusion has significantly increased in size since CT of October 14, 2024. There is no pneumothorax. There is a small right pleural effusion. Extensive left lung airspace opacity with volume loss is noted. This has progressed since prior examination. The previously described left apical mass is obscured on this exam. Pleural metastatic disease within the left hemithorax has mildly progressed. Thoracic lymphadenopathy as also mildly progressed. A left supraclavicular lymph node on image 175 of 211 measures 2 x 1.4 cm, previously 1.5 x 1.4 cm. A left axillary lymph node measures 2.8 x 1.9 cm. This was partially imaged on prior exam. An additional left axillary lymph node measures 1.6 x 1.4 cm, previously 1.4 x 1.1 cm. Mediastinal and hilar adenopathy has also progressed. Several small right lower lobe pulmonary nodules measuring up to 5 mm are unchanged. There are mild groundglass opacities within the right lung. Status post T12 kyphoplasty. Visualized portions of the upper abdomen are unremarkable. IMPRESSION: 1. No pulmonary emboli identified. 2. Mild progression of metastatic disease since chest CT of October 14, 2024, as described above. Large malignant left pleural effusion which has significantly increased in size since prior exam. This results in diminished aeration of the left lung. 3. Mild progression of thoracic lymphadenopathy. 4. No significant change in several small right lower lobe pulmonary nodules. ACT 112: Negative or not required by law. Electronically signed by: Arsen Dominguez M.D. 11/25/2024 3:02 PM ECG Data Attestation: I personally reviewed and interpreted this ECG as follows: Interpretation: Sinus tachycardia with rate of 104. OK 130 QRS [address] elevation or ST depression. [facility] Narrative 1332: The patient was evaluated in room C2. A complete history and physical exam was performed Cardiac monitoring: An order was placed for continuous cardiac monitoring. The monitor shows a rate of 100 with sinus rhythm interpreted by ma 1527: Vital signs stable. Labs are unremarkable. CT of the chest negative for PE. Imaging shows a large possibly malignant pleural effusion. Discussed the case with on-call pulmonology Dr. Davis. Patient will be admitted. Pulmonology states they will decide whether to do a thoracentesis or pigtail chest tube for the patient. [facility] Impression & Plan Pleural effusion Discharge Plan Visit Data Chief Complaint: Shortness of Breath/Dyspnea Stated Complaint: TROUBLE BREATHING ED Provider: Michael Figueroa Discharge Problem: Pleural effusion Patient Disposition: Admitted As Inpatient Discharge Instructions Interventions: ED Discharge Assessment Last Done: 11/25/24 16:35
[2024-11-25] MEDS: HYDROmorphone INJ 0.5 MG/0.5 ML SYR IV STA (17:18)
--- NOTE | 2024-11-25 17:32 | XRay Report ---
EXAM: Radiograph of the Chest 1 View INDICATION: Chest tube. TECHNIQUE: Frontal view of the chest. COMPARISON: 08/21/2024 FINDINGS: Lungs and pleural spaces: Moderate to large left pleural effusion. The effusion is probably partially loculated. No visible pneumothorax. There is moderate consolidation of the lingula and left lower lobe. Heart: Shape and configuration within normal limits allowing for technique. Mediastinum: Normal contour. Bones/joints: No fracture, erosion or dislocation. Soft tissues: No abnormality noted. No radiopaque foreign body noted. Tubes, lines and devices: There is a left pleural drain with the pigtail projecting over the left midlung. Upper abdomen: No abnormality noted. IMPRESSION: 1. Moderate to large left pleural effusion likely partially loculated with pleural drain in place. 2. Considerable consolidation in the left lung sparing the upper lobe. Compressive atelectasis, central obstructing mass or mucous plug and pneumonia considered. ACT 112: Negative or not required by law. Electronically signed by Lucy Swanson 11-25-2024 5:32 PM
--- NOTE | 2024-11-25 17:33 | Procedure Note ---
Procedure Note Date of Service November 25, 2024 Procedure: Pigtail chest tube insertion Radiator Cleaner: Dr. Carlos Davis Indication: Left-sided large pleural effusion with history of lung cancer Consent: Signed by patient and verified with timeout prior to procedure Anesthesia: 1% lidocaine without epinephrine local Procedure: Consent was verified and timeout performed. Appropriate imaging studies were reviewed prior to the procedure. Patient was placed in a seated position. Appropriate site above the diaphragm on the left midaxillary line fourth intercostal space for chest tube insertion was selected. The skin was prepped and draped in normal sterile fashion. Lidocaine was used for local analgesia. Serous was aspirated via the finder needle. A small skin sally was made with the scalpel and the catheter over the needle apparatus was advanced over the rib into the pleural space. With the help of guidewire and Seldinger technique, 14 Sami pigtail catheter was inserted and connected to Pleur-evac. No air leak appreciated after that. Chest x-ray to follow Fluid was sent for labs, culture and cytology. The patient tolerated the procedure without obvious complication Complications: None Blood loss: Less than 2 cc. Bedside Ultrasound: Lung: Right:-No pleural effusion, a lines appreciated anteriorly, B-lines posteriorly Left:-Large left-sided pleural effusion with atelectasis of the left lower lobe, diaphragmatic as well as chest wall pleural thickening Please note the above document was generated using voice recognition software. It may contain grammatical, syntax or spelling errors.Any formal questions or concerns about the content, text or information contained within the body of this dictation should be directly addressed to the provider for clarification. [facility] [place]Charges) Pulmonary/Thoracic Procedure 1: Pulmonary and Thoracic: 66080 Tube thoracostomy Procedure 2: Pulmonary and Thoracic: 63236 Pleural drainage w/o imaging Procedure 3: Pulmonary and Thoracic: 66741 US, Chest, real time with imaging documentation Coding CPT Codes Pulmonary/Thoracic - Pulmonary and Thoracic: 71441 Tube thoracostomy ([id number]) Pulmonary/Thoracic - Pulmonary and Thoracic: 25751 Pleural drainage w/o imaging ([id number]) Pulmonary/Thoracic - Pulmonary and Thoracic: 40675 US, Chest, real time with imaging documentation ([id number]) Additional Codes Date of Service ([email or web address])
[2024-11-25 17:58] LABS: Total Protein Pleural Fluid 3.2 gm/dl
[2024-11-25 18:02] LABS: Albumin Level 3.5 gm/dl (3.4-5.0); Bilirubin,Total 0.5 mg/dl (0.2-1.0)
[2024-11-25 18:36] LABS: Appearance Pleural Fluid Hazy; Color Pleural Fluid Yellow; Eosinophils, Fluid 32 %; Lymphocytes, Fluid 32 %; Mono,Macrophage,Mesothelial 36 %; Neutrophils, Fluid 0 %; RBC Pleural Fluid Auto 2000 /uL; Source Pleural Fluid Left Lung; WBC Pleural Fluid Auto 622 /uL
--- OUTSIDE RECORDS SUMMARY | 2024-11-25 19:15 | External Medical Summary | Summary of Care ---
Author Name Unknown Organization [facility] Address [address] [place] [address] Phone [phone] Care Team Providers Care It Senior Software Engineer Java Name Role Phone Kaylan Hernandez PA-C Primary Care Provider [phone] Reason for Visit * Reason Onset Date Comments Test Results 08/08/2024 Simmons Encounter Details Date Type Department Care Team (Late st Contact Info) Description 08/08/2024 Telephone Hematology/Oncology [facility] [address] [place] [address] Services, Scheduling [address] [place] [address] Test Results (Simmons) Allergies Active Allergy Reactions Criticality Noted Date Comments Losartan Potassium Edema face/lips/tongue High 06/30 Fentanyl Itching 08/30/2016 Oxycodone 06/07/2023 Itching all over Penicillins Edema face/lips/tongue High 11/15/2001 Sulfa Antibiotics Other (Please comment) 2000 Urinary frequency Topiramate 04/09/2023 Other reaction(s): Blurry Vision Tramadol Other (Please comment) 01/01/2018 hallucinations documented as of this encounter (statuses as of 11/07/2024) Medications TYLENOL EXTRA STRENGTH 500 MG PO TABS Take 2 Tablets by mouth in the morning and 2 Tablets before bedtime. 0 02/27/20 07 Active VITAMIN D 1000 UNIT PO CAPS one capsule by mouth once a day Active Aspirin EC 81 MG Oral Tablet Delayed ReleaseIndicati ons:Paroxysmal atrial fibrillation (HCC),Coronary artery disease involving tolowa dee-ni' coronary artery of tolowa dee-ni' heart without angina pectoris,Dyslip idemia, goal LDL below 70,HTN, goal below 140/90 Take 1 Tab by mouth daily. 07/13/20 21 Active Probiotic (Lactobacillus) Oral Capsule Take 1 Capsule by mouth daily. 30 Capsule 12/05/19 22 Active BiPAP every night at bedtime. Active Saline Nasal [place] 0.65 % Nasal Solution ([place]) Administer 1 [place] into nostril as needed for Congestion. Active Albuterol Sulfate (2.5 MG/3ML) 0.083% Inhalation Nebulization Solution (Proventil)Vanessa cations:Bronchi tis, complicated,Chr onic bronchitis, unspecified chronic bronchitis type (HCC) use 1 nebulizer vial as needed for cough, shortness of breath, and wheeze 75 mL 10/16/20 23 Active Ipratropium-Alb uterol 0.5-2.5 (3) MG/3ML Inhalation Solution (Duoneb)Indicat ions:Bronchitis , complicated,Chr onic bronchitis, unspecified chronic bronchitis type (HCC) INHALE 1 VIAL VIA NEBULIZER EVERY 6 HOURS NEEDED FOR WHEEZING 90 mL 3 10/16/20 23 Active Levothyroxine Sodium 100 MCG Oral Tablet (Levoxyl) take one tablet by mouth daily at least 30 minutes before breakfast and other medications 90 Tablet 3 01/27/20 24 Active HYDROmorphone HCl 2 MG Oral Tablet (Dilaudid)Indic ations:Post laminectomy syndrome Take 1 Tablet by mouth every 6 hours as needed for Pain, Moderate or Pain, Severe. 30 Tablet 05/07/20 24 Active Albuterol Sulfate HFA 108 (90 Base) MCG/ACT Inhalation Aerosol Solution Inhale 2 Puffs by mouth every 4 hours as needed for Wheezing. 18 g 3 05/22/20 24 Active hydroCHLOROthia zide 12.5 MG Oral CapsuleIndicati ons:HTN, goal below 130/80 1 tablet 2 days per week. 28 Capsule 3 05/22/20 24 Active Additional Information Patient not taking.Reported on 10/14/2024 Full Kit Nebulizer Set Use with Nebulizer Medication EVERY SIX HOURS WHILE AWAKE as directed. Dx Code: J44.9 1 Each 3 06/30/20 24 Active LORazepam 0.5 MG Oral Tablet (Ativan) Take 1 Tablet by mouth every 6 hours as needed for Anxiety or Other (muscle spasm). 30 Tablet 1 07/07/20 24 Active Hydrocortisone 1 % External CreamIndication s:Primary malignant neoplasm of lung, unspecified laterality (HCC) Apply topically to affected area 2 times a day. Apply twice daily for 6 weeks 120 g 1 07/14/20 24 Active Ondansetron HCl 8 MG Oral Tablet (Zofran) Take 1 Tablet by mouth every 8 hours as needed for Nausea. 20 Tablet 2 07/22/20 24 Active Prochlorperazin e Maleate 10 MG Oral Tablet (Compazine) Take 1 Tablet by mouth every 6 hours as needed for Nausea. 30 Tablet 3 07/24/20 24 Active Nitroglycerin 0.4 MG Sublingual Tablet Sublingual (Nitrostat)Vanessa cations:Abnorma l cardiac CT angiography,Par oxysmal atrial fibrillation (HCC),HTN, goal below 140/80,Dyslipid emia, goal LDL below 70,JOLANTA (obstructive sleep apnea) Place 1 Tablet under the tongue every 5 minutes as needed for Pain, Chest (up to 3 doses in 15 minutes). 25 Tablet 08/05/20 24 Active Acyclovir 400 MG Oral Tablet (Zovirax) 3 times daily for 5-7 days as needed for cold sores 60 Tablet 11 08/07/20 24 Active Baclofen 20 MG Oral TabletIndicatio ns:Whiplash injury to neck, subsequent encounter Take 1 Tablet by mouth in the morning and 1 Tablet at noon and 1 Tablet before bedtime. 90 Tablet 5 08/07/20 24 Active Budesonide 32 MCG/ACT Nasal SuspensionIndic ations:Chronic sinusitis, unspecified location,Acute recurrent sinusitis, unspecified location Administer 2 Sprays into each nostril in the morning. 5 mL 3 11/17/20 22 2023 Discontinued(E nd of Procedure) Praluent 75 MG/ML Subcutaneous Solution Auto-injector (Alirocumab)Ind ications:Dyslip idemia, goal LDL below 70 Inject 75 mg (1 pen) under the skin every 14 days. 6 mL 3 4 4:44 PM EDT 10/16/20 23 2023 Discontinued(R efill) Triamcinolone Acetonide 55 MCG/ACT Nasal Aerosol (Nasacort Allergy 24HR) Administer into nostril daily as needed. 2023 Discontinued(P atient preference/dis continuation) Famotidine 20 MG Oral Tablet (Pepcid) TAKE 1 TABLET BY MOUTH TWICE DAILY 60 Tablet 5 02/27/20 24 2023 Discontinued Lisinopril 20 MG Oral Tablet (Prinivil) Take 1 Tablet by mouth in the morning. 90 Tablet 2 04/14/20 24 2023 Discontinued HYDROcodone Bit-Homatrop MBr 5-1.5 MG/5ML Oral Solution (Hycodan) Take 5 mL by mouth every 6 hours as needed for Cough. 473 mL 07/21/20 24 2023 Discontinued(R efill) Osimertinib Mesylate 80 MG Oral Tablet (Tagrisso)Indic ations:Primary malignant neoplasm of lung, unspecified laterality (HCC) Take 1 Tablet by mouth in the morning. Take medication about same time every day, with or without food.. 30 Tablet 5 07/18/20 24 2023 Discontinued(R efill) Hospital, Clinic, or Other Facility Administered Medication [...] as of this encounter (statuses as of 11/07/2024) Active Problems Problem Noted Date Diagnosed Date COPD, group B, by GOLD 2017 classification 07/07 Overview: Per COPD GOLD Classification Primary lung cancer 06/17/2024 Overview (06/19/2024): 3 cm left apex lesion with extensive lymph nodes, small pleural effusion Coronary artery disease invo lving tolowa dee-ni' coronary artery of tolowa dee-ni' heart with angina pectoris 03/25/2023 Acquired absence of other sp ecified parts of digestive tract 11/10/2022 Arthrodesis status 11/10/2022 Complication of anesthesia 11/10/2022 Compression fracture of T12 vertebra 11/10/2022 Discitis 11/10/2022 Gout 11/10/2022 History of lumbar fusion 11/10/2022 Inflammation of sacroiliac joint 11/10/2022 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 Increased risk for Hereditary Cardiomyopathy. Please click the link below for a brief summary of current clinical management recommendations for Hypertrophic Cardiomyopathy. MYH7 Coronary artery disease invo lving tolowa dee-ni' coronary artery of tolowa dee-ni' heart without angina pectoris 09/26/2021 MISHRA (dyspnea [...] 11/15/2009 Gastroparesis 09/16/2008 Irritable bowel syndrome 02/14/2007 Dyslipidemia, goal LDL below 70 documented as of this encounter (statuses as of 11/07/2024) Resolved Problems Problem Noted Date Diagnosed Date [...] encounter 01/16/2008 12/12/2010 Pulmonary embolus 01/16/2008 09/14/2020 ADVANCE DIRECTIVE INFORMATION 04/20/2005 09/29/2024 Overview (04/20/2005): No, Advance Directive brochure given to patient at prior appointment. 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 Answer Date of Assessment Author No 01/09/2018 6:54 AM Ruth Cummins RN * Are you blind or do you have serious difficulty seeing, even when wearing glasses? Answer Date of Assessment Author No 01/09/2018 6:54 AM Ruth Cummins RN * Do you have serious difficulty walking or climbing stairs? (5 years old or older) Answer Date of Assessment Author No 01/09/2018 6:54 AM Ruth Cummins RN * Do you have difficulty dressing or bathing? (5 years old or older) Answer Date of Assessment Author No 01/09/2018 6:54 AM Ruth Cummins RN * Because of a physical, mental, or emotional condition, do you have difficulty doing errands alone such as visiting a doctors office or shopping? (15 years old or older) Answer Date of Assessment Author No 01/09/2018 6:54 AM Ruth Cummins RN documented as of this encounter Mental Status * Because of a physical, mental, or emotional condition, do you have serious difficulty concentrating, remembering, or making decisions? (5 years old or older) Answer Entry Date Author No 01/09/2018 6:54 AM Ruth Cummins RN documented in this encounter Miscellaneous Notes * Telephone Encounter - Bebe Dean RN - 08/08/2024 1:35 PM EDT Reviewed with Dr Simmons, called Yuliana ([phone]). Called Yuliana, advised that this could be related to cancer diagnosis, patient could also have underlying cardiac condition- has only been on tagrisso since 07/31/24. Yuliana states that patients vital signs have been stable (O2 96%, BP a little lowerthan normal but still good, no concerns with vitals). Called patient. Emotional support given. Advised that Dr Simmons agrees with recommendations from cardiology/ PCP- repeat EKG, possibly echo. Patient states that she is on her way to cardiology now forrepeat EKG. * Telephone Encounter - Mayela Powers OSA - 08/08/2024 11:32 AM EDT Yuliana from [facility] called asking if Dr. Simmons could give her a call back. Patient has been experiencing on/off chest pains and pain down her left arm. Patient had a EKG yesterday that detected subtle changes. Yuliana states the medication she is taking is Cardio toxic. Please give her a call back as soon as possible. documented in this encounter Plan of Treatment Upcoming Encounters Date Type Department Care Team (Late st Contact Info) Description 11/12/2024 9:45 AM [facility] Pharmacy Pharmacy Hematology Oncology [facility] [address] [place] [address] [facility] [place] Hem/Onc [address] [place] [address] 02/02/2025 9:45 AM EDT Imaging Radiology [facility] [address] [facility] [place] [address] 02/10/2025 9:30 AM EDT Office Visit Hematology/Oncology [facility] [place] [address] [place] [phone] Cortez Simmons MD [address] [place] [address] 05/25/2025 1:30 PM EDT Office Visit Cardiology, [facility] [address] [facility] [place] [address] Pablo Romano MD [address] [place] [address] Health Maintenance Due Date Last Done Comments [...] Vaccine ( season) 2024 10/29/2021, 02/07/2021, 01/03/2021 O2 ASSESSMENT COMPLETED IN PAST YEAR FOR COPD 06/25/2025 06/25/2024 GFR 10/14/2025 10/14/2024, 07/27, 07/08/2024, Additional history exists TSH 10/14/2025 10/14/2024, 05/2024, 03/06/2023, Additional history exists Albumin/Creatinine Ratio 02/28/2026 02/28/2023 DXA Scan 06/11/2030 06/11/2023, 08/27, 08/14/2012, Additional history exists Colonoscopy 02/07/2034 02/08/2024, 01/24, 09/11/2016, Additional history exists Colorectal Cancer Screening 02/07/2034 RETIRED - COLONOSCOPY-EVERY 5 YRS AGES 18-100 Discontinued 02/08/2024, 02/08/2024, 09/11/2016, Additional history exists Influenza Vaccine (FLU shot) Completed 09/18/2024, 08/14/2023, 09/12/2022, Additional history exists HPV (Gardasil) Vaccine Aged [...] Directives occurred with: Not Discussed Care Teams It Senior Software Engineer Java Relationship Specialty Start Date End Date Mary Kaylan SHRUTHI Whitney [address] [place], [place] [address] PCP - General Physician Aquatic Physiotherapist 09/16/24 documented as of this encounter
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
--- OUTSIDE RECORDS SUMMARY | 2024-11-25 19:15 | External Medical Summary | Summary of Care ---
Author Name Unknown Organization [facility] Address [address] [place] [address] Phone [phone] Care Team Providers Care Stamp Classifier Name Role Phone Mary Kaylan Whitney PA-C Primary Care Provider [phone] Reason for Visit * Reason Onset Date Comments FYI 08/11/2024 Encounter Details Date Type Department Care Team (Late st Contact Info) Description 08/11/2024 Telephone Hematology/Oncology [facility] [address] [place] [address] Services, Scheduling [address] [place] [address] Allergies Active Allergy Reactions Criticality Noted Date Comments Losartan Potassium Edema face/lips/tongue High 06/30 Fentanyl Itching 08/30/2016 Oxycodone 06/07/2023 Itching all over Penicillins Edema face/lips/tongue High 11/15/2001 Sulfa Antibiotics Other (Please comment) 2000 Urinary frequency Topiramate 04/09/2023 Other reaction(s): Blurry Vision Tramadol Other (Please comment) 01/01/2018 hallucinations documented as of this encounter (statuses as of 11/10/2024) Medications TYLENOL EXTRA STRENGTH 500 MG PO TABS Take 2 Tablets by mouth in the morning and 2 Tablets before bedtime. 0 7 Active VITAMIN D 1000 UNIT PO CAPS one capsule by mouth once a day Active Aspirin EC 81 MG Oral Tablet Delayed ReleaseIndicatio ns:Paroxysmal atrial fibrillation (HCC),Coronary artery disease involving [place] coronary artery of [place] heart without angina pectoris,Dyslipi demia, goal LDL below 70,HTN, goal below 140/90 Take 1 Tab by mouth daily. 1 Active Probiotic (Lactobacillus) Oral Capsule Take 1 Capsule by mouth daily. 30 Capsule 2 Active BiPAP every night at bedtime. Active Saline Nasal [place] 0.65 % Nasal Solution ([place]) Administer 1 [place] into nostril as needed for Congestion. Active Albuterol Sulfate (2.5 MG/3ML) 0.083% Inhalation Nebulization Solution (Proventil)Indic ations:Bronchiti s, complicated,Flying Shear Operator ellen bronchitis, unspecified chronic bronchitis type (HCC) use 1 nebulizer vial as needed for cough, shortness of breath, and wheeze 75 mL 3 Active Ipratropium-Albu terol 0.5-2.5 (3) MG/3ML Inhalation Solution (Duoneb)Indicati ons:Bronchitis, complicated,Flying Shear Operator ellen bronchitis, unspecified chronic bronchitis type (HCC) [...] a day. 5 g 12 4 Active Hospital, Clinic, or Other Facility [...] as of this encounter (statuses as of 11/10/2024) Active Problems Problem Noted Date Diagnosed Date COPD, group B, by GOLD 2017 classification 07/07 Overview: Per COPD GOLD Classification Primary lung cancer 06/17/2024 Overview (06/19/2024): 3 cm left apex lesion with extensive lymph nodes, small pleural effusion Coronary artery disease invo lving [place] coronary artery of [place] heart with angina pectoris 03/25/2023 Acquired absence of other sp ecified parts of digestive tract 11/10/2022 Arthrodesis status 11/10/2022 Complication of anesthesia 11/10/2022 Compression fracture of T12 vertebra 11/10/2022 Discitis 11/10/2022 Gout 11/10/2022 History of lumbar fusion 11/10/2022 Inflammation of sacroiliac joint 11/10/2022 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 Increased risk for Hereditary Cardiomyopathy. Please click the link below for a brief summary of current clinical management recommendations for Hypertrophic Cardiomyopathy. MYH7 Coronary artery disease invo lving [place] coronary artery of [place] heart without angina pectoris 09/26/2021 MISHRA (dyspnea [...] as of this encounter (statuses as of 11/10/2024) Resolved Problems Problem Noted Date Diagnosed Date [...] as of this encounter (statuses as of 11/10/2024) Immunizations Name Administration Dates Next Due COVID-19 mRNA, LNP-s, No Pre serve, 2-Dose Series ([employer]) 10/29/2021,02/07/2021,01/03/2021 PPD 04/27/2010, 0,04/08/2010,04/08,10/25/2006,10/25/2006 Pneumococcal Polysaccharide [...] encounter Miscellaneous Notes * Telephone Encounter - Miri Hawkins OSA - 08/11/2024 2:31 PM EDT Yuliana from [facility] home health calling to leave a message for Dr Simmons, saw pt today for pall visit she has mouth ulcers through out her mouth, pcp aware and calling in antibiotics. documented in this encounter Plan of Treatment Upcoming Encounters Date Type Department Care Team (Late st Contact Info) Description 11/12/2024 9:45 AM EST Pharmacy Pharmacy Hematology Oncology [facility] [place] [address] [place] [address] [facility], [facility] Hem/Onc [address] [place] [address] 02/02/2025 9:45 AM EDT Imaging Radiology [address] [place] [address] 02/10/2025 9:30 AM EDT Office Visit Hematology/Oncology [facility] [address] [facility] [place] [address] Cortez Simmons MD [address] [facility] [place] [address] 05/25/2025 1:30 PM EDT Office Visit Cardiology, [facility] [address] [place] [address] Pablo Romano MD [address] [place] [address] Health Maintenance Due Date Last Done Comments [...] 07/08/2024, Additional history exists TSH 10/14/2025 10/14/2024, /0 05/2024, 03/06/2023, Additional history exists Albumin/Creatinine Ratio [...] Directives occurred with: Not Discussed Care Teams Stamp Classifier Relationship Specialty Start Date End Date Kaylan Hernandez PA-C [facility] [address] [place] [address] PCP - General Physician [place] Supervisor 09/16/24 documented as of this encounter
--- OUTSIDE RECORDS SUMMARY | 2024-11-25 19:16 | External Medical Summary | Summary of Care ---
Author Name Unknown Organization [facility] Address [address] [facility] [address] Phone [phone] Care Team Providers Care Credit Correspondence Clerk Name Role Phone Kaylan Hernandez PA-C Primary Care Provider [phone] Reason for Visit * Reason Onset Date Comments Advice 08/07/2024 Encounter Details Date Type Department Care Team (Late st Contact Info) Description 08/07/2024 Telephone Family Practice [facility] 200 [facility] [place] [address] Cj Rico III, MD [facility] [address] Advice Allergies Active Allergy Reactions Criticality Noted Date Comments Losartan Potassium Edema face/lips/tongue High 06/30 Fentanyl Itching 08/30/2016 Oxycodone 06/07/2023 Itching all over Penicillins Edema face/lips/tongue High 11/15/2001 Sulfa Antibiotics Other (Please comment) 2000 Urinary frequency Topiramate 04/09/2023 Other reaction(s): Blurry Vision Tramadol Other (Please comment) 01/01/2018 hallucinations documented as of this encounter (statuses as of 11/06/2024) Medications TYLENOL EXTRA STRENGTH 500 MG PO TABS Take 2 Tablets by mouth in the morning and 2 Tablets before bedtime. 0 7 Active VITAMIN D 1000 UNIT PO CAPS one capsule by mouth once a day Active Aspirin EC 81 MG Oral Tablet Delayed ReleaseIndicatio ns:Paroxysmal atrial fibrillation (HCC),Coronary artery disease involving agdaagux coronary artery of agdaagux heart without angina pectoris,Dyslipi demia, goal LDL below 70,HTN, goal below 140/90 Take 1 Tab by mouth daily. 1 Active Probiotic (Lactobacillus) Oral Capsule Take 1 Capsule by mouth daily. 30 Capsule 2 Active BiPAP every night at bedtime. Active Saline Nasal [place] 0.65 % Nasal Solution (Stanley) Administer 1 [place] into nostril as needed for Congestion. Active Albuterol Sulfate (2.5 MG/3ML) 0.083% Inhalation Nebulization Solution (Proventil)Indic ations:Bronchiti s, complicated,Quality Facilitator ellen bronchitis, unspecified chronic bronchitis type (HCC) use 1 nebulizer vial as needed for cough, shortness of breath, and wheeze 75 mL 3 Active Ipratropium-Albu terol 0.5-2.5 (3) MG/3ML Inhalation Solution (Duoneb)Indicati ons:Bronchitis, complicated,Quality Facilitator ellen bronchitis, unspecified chronic bronchitis type (HCC) [...] before bedtime. 90 Tablet 5 4 Active Hospital, Clinic, or Other Facility [...] as of this encounter (statuses as of 11/06/2024) Active Problems Problem Noted Date Diagnosed Date COPD, group B, by GOLD 2017 classification 07/07 Overview: Per COPD GOLD Classification Primary lung cancer 06/17/2024 Overview (06/19/2024): 3 cm left apex lesion with extensive lymph nodes, small pleural effusion Coronary artery disease invo lving agdaagux coronary artery of agdaagux heart with angina pectoris 03/25/2023 Acquired absence of other sp ecified parts of digestive tract 11/10/2022 Arthrodesis status 11/10/2022 Complication of anesthesia 11/10/2022 Compression fracture of T12 vertebra 11/10/2022 Discitis 11/10/2022 Gout 11/10/2022 History of lumbar fusion 11/10/2022 Inflammation of sacroiliac joint 11/10/2022 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 Increased risk for Hereditary Cardiomyopathy. Please click the link below for a brief summary of current clinical management recommendations for Hypertrophic Cardiomyopathy. MYH7 Coronary artery disease invo lving agdaagux coronary artery of agdaagux heart without angina pectoris 09/26/2021 MISHRA (dyspnea [...] as of this encounter (statuses as of 11/06/2024) Resolved Problems Problem Noted Date Diagnosed Date [...] as of this encounter (statuses as of 11/06/2024) Immunizations Name Administration Dates Next Due COVID-19 mRNA, LNP-s, No Pre serve, 2-Dose Series (Dot) 10/29/2021,02/07/2021,01/03/2021 PPD 04/27/2010, 0,04/08/2010,04/08,10/25/2006,10/25/2006 Pneumococcal Polysaccharide PPV23 [...] Entry Date Author No 01/09/2018 6:54 AM EST Ruth Powell RN documented in this encounter Miscellaneous Notes * Telephone Encounter - Beatrice Pal OSA - 08/07/2024 4:54 PM EDT Reason for patient's call: EKG Caller was transferred to [facility] at the nurse line. documented in this encounter Plan of Treatment Upcoming Encounters Date Type Department Care Team (Late st Contact Info) Description 11/12/2024 9:45 AM EST Pharmacy Pharmacy Hematology Oncology [facility] [address] [place] [address] [facility] Hem/Onc [address] [place] [address] 02/02/2025 9:45 AM EDT Imaging Radiology [facility] [address] [place] [address] 02/10/2025 9:30 AM EDT Office Visit Hematology/Oncology [facility] 200 [facility] [place] [id number] Cortez Simmons MD 200 [place] [address] 05/25/2025 1:30 PM EDT Office Visit Cardiology, [facility] [address] [place] [address] Pablo Romano MD 132 [facility] [place] [address] Health Maintenance Due Date Last Done Comments [...] Directives occurred with: Not Discussed Care Teams Credit Correspondence Clerk Relationship Specialty Start Date End Date MaryFebruary SHRUTHI Whitney [address] [place] [address] PCP - General Physician Livestock Slaughterer 09/16/24 documented as of this encounter
[2024-11-25] MEDS: HYDROmorphone INJ 0.5 MG/0.5 ML SYR IV PRN ×2 (19:48→23:28)
[2024-11-25 20:26] LABS: Appearance Urine Clear (Clear); Bacteria Urine Automated None Seen (None Seen); Bilirubin Urine Negative (Negative); Blood Urine Negative (Negative); Cast Urine Automated 0-2 /lpf (0-2); Color Urine Yellow; Epithelial Cell Urine Auto 0-2 /hpf (0-2); Glucose Urine UA Negative (Negative); Ketones Urine Trace (Negative); Leukocyte Esterase Urine Negative (Negative); Nitrite Urine Negative (Negative); Protein Urine Trace (Negative); RBC Urine Automated 0-2 /hpf (0-2); Specific Gravity Urine > 1.045 (1.000-1.030); Urobilinogen Urine Negative (Negative); WBC Urine Automated 0-5 /hpf (0-5)
[2024-11-25] MEDS ORDERED: HYDROCODONE/ACETAMOPHEN 5/325MG TAB PO PRN (20:40)
[2024-11-25] MEDS: KETOROLAC TROMETHAMINE 15 MG/ML VIAL IV ONE (20:49)
--- NOTE | 2024-11-25 20:50 | Electrocardiogram Report ---
Test Reason : Blood Pressure : */* mmHG Vent. Rate : 104 BPM Atrial Rate : 104 BPM P-R Int : 130 ms QRS Dur : 74 ms QT Int : 324 ms P-R-T Axes : 41 20 15 degrees QTcB Int : 427 ms Sinus tachycardia Nonspecific T wave abnormality Abnormal ECG When compared with ECG of 08-Sep-2024 14:04, T wave inversion now evident in Lateral leads Confirmed by Alberto Hicks ([id number]) on 11/25/2024 8:49:56 PM Referred By: REFERRED SELF Confirmed By: Alberto Hicks
[2024-11-25] MEDS: LIDOCAINE 5% 1 PATCH TD SCH (20:57)
[2024-11-25] MEDS: BUDESONIDE 0.5 MG/2 ML VIAL (PULMICORT) NEB SCH (21:06)
[2024-11-25] MEDS: FORMOTEROL 20 MCG/2 ML VIAL INH SCH (21:06)
--- OUTSIDE RECORDS SUMMARY | 2024-11-25 22:27 | External Medical Summary | Summary of Care ---
Author Name Unknown Organization [facility] Address [address] [facility] [place] [address] Phone [phone] Care Team Providers Care Roll Operator Name Role Phone Kaylan Hernandez PA-C Primary Care Provider [phone] Reason for Visit * Reason Onset Date Comments Other 11/25/2024 [place] Encounter Details Date Type Department Care Team (Late st Contact Info) Description 11/25/2024 Telephone Hematology/Oncology [facility] [place] [address] [place] [address] Cortez Simmons MD [address] [place] [address] Other (Simmons) Allergies Active Allergy Reactions Criticality Noted Date Comments Losartan Potassium Edema face/lips/tongue High 06/30 Fentanyl Itching 08/30/2016 Oxycodone 06/07/2023 Itching all over Penicillins Edema face/lips/tongue High 11/15/2001 Sulfa Antibiotics Other (Please comment) 2000 Urinary frequency Topiramate 04/09/2023 Other reaction(s): Blurry Vision Tramadol Other (Please comment) 01/01/2018 hallucinations documented as of this encounter (statuses as of 11/25/2024) Medications TYLENOL EXTRA STRENGTH 500 MG PO TABS Take 2 Tablets by mouth in the morning and 2 Tablets before bedtime. 0 7 Active VITAMIN D 1000 UNIT PO CAPS one capsule by mouth once a day Active Aspirin EC 81 MG Oral Tablet Delayed ReleaseIndicatio ns:Paroxysmal atrial fibrillation (HCC),Coronary artery disease involving menominee coronary artery of menominee heart without angina pectoris,Dyslipi demia, goal LDL below 70,HTN, goal below 140/90 Take 1 Tab by mouth daily. 1 Active Probiotic (Lactobacillus) Oral Capsule Take 1 Capsule by mouth daily. 30 Capsule 2 Active BiPAP every night at bedtime. Active Saline Nasal [place] 0.65 % Nasal Solution ([place]) Administer 1 [place] into nostril as needed for Congestion. Active Albuterol Sulfate (2.5 MG/3ML) 0.083% Inhalation Nebulization Solution (Proventil)Indic ations:Bronchiti s, complicated,Magnetizer ellen bronchitis, unspecified chronic bronchitis type (HCC) use 1 nebulizer vial as needed for cough, shortness of breath, and wheeze 75 mL 3 Active Ipratropium-Albu terol 0.5-2.5 (3) MG/3ML Inhalation Solution (Duoneb)Indicati ons:Bronchitis, complicated,Magnetizer ellen bronchitis, unspecified chronic bronchitis type (HCC) [...] mouth at bedtime as needed for Sleep. 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 Increased risk for Hereditary Cardiomyopathy. Please click the link below for a brief summary of current clinical management recommendations for Hypertrophic Cardiomyopathy. MYH7 Coronary artery disease invo lving menominee coronary artery of menominee heart without angina pectoris 09/26/2021 MISHRA (dyspnea [...] as of this encounter (statuses as of 11/25/2024) Resolved Problems Problem Noted Date Diagnosed Date [...] as of this encounter (statuses as of 11/25/2024) Immunizations Name Administration Dates Next Due COVID-19 mRNA, LNP-s, No Pre serve, 2-Dose Series (Shark Punch) 10/29/2021,02/07/2021,01/03/2021 PPD 04/27/2010, 0,04/08/2010,04/08,10/25/2006,10/25/2006 Pneumococcal Polysaccharide PPV23 [...] Telephone Encounter - Bebe Dean RN - 11/25/2024 11:[address] Simmons, patient to go to ER. Called patient- she states that she will get a ride to go within 1 hour. TT sent to [facility] ER charge nurse role. * Telephone Encounter - Yvonne Elliott LPN - 11/25/2024 11:12 AM EST Yuliana RN from [facility] states patient complaint of worsening SOB. She states the patient is "noticeably" SOB, she states patient observed to be SOB with exertion, "from the bed to the bathroom". She reports the patient does not have oxygen at home to use as needed.She also reports patient voice is "hoarse". She states patient denies any complaints of chest pain or pressure. Nurse also reports patient is having increased difficulty swallowing since yesterday. Yuliana reports the patient's vitals as: Temp: 99.1 deg F HR: 104 bpm O2 Sat: 94% at rest, patient reports the sat is "dipping down to the 80's" RR: 20 bpm BP: 124/80 She states the patient complaint of left-sided rib pain, 4:10 on numeric scale. Patient reports theHydromorphone hcl 2 mg is effective with relieving the rib pain but is no longer helping with the breathing. Nurse is requesting we contact the patient with instructions and recommendations. * Telephone Encounter - Radha Sharp OSA - 11/25/2024 11:07 AM EST Yuliana from [facility] Home Health Palliative Care is calling to speak with a nurse about the patient Patient is having increased shortness of breath Call transferred to nurse Uriah documented in this encounter Plan of Treatment Upcoming Encounters Date Type Department Care Team (Late st Contact Info) Description 12/12/2024 9:45 AM EST Pharmacy Pharmacy Hematology Oncology [facility] [address] [place] [address] [facility] Hem/Onc [address] [place] [address] 02/02/2025 9:45 AM EDT Imaging Radiology [address] [place] [address] 02/10/2025 9:30 AM EDT Office Visit Hematology/Oncology [facility] [address] [facility] [place] [phone] Cortez Simmons MD 200 [facility] [place] [address] 05/25/2025 1:30 PM EDT Office Visit Cardiology, [facility] [address] [place] [address] Pablo Romano MD 132 [facility] [place] [address] Health Maintenance Due Date Last Done Comments Alpha-1 Antitrypsin 1971 Cologuard 1998 Fecal Occult Blood Test 1998 Sigmoidoscopy 1998 Zoster Vaccines (1 of 2) 2003 Pneumococcal Vaccine: 50+ Years (2 of 2 - PCV) 10/21/2017 10/21/2016 Adult Wellness Visit 2019 DTap/Tdap Vaccines (2 - Td or Tdap) 06/09/2019 06/09/2009 Depression Screening 08/09/2023 08/09/2022 Mammogram 05/07/2024 05/07/2023, 04/26, 04/13/2022, Additional history exists COVID-19 Vaccine ( season) 2024 10/29/2021, 02/07/2021, 01/03/2021 O2 ASSESSMENT COMPLETED IN PAST YEAR FOR COPD 06/25/2025 06/25/2024 GFR 10/14/2025 10/14/2024, 07/27, 07/08/2024, Additional history exists TSH 10/14/2025 10/14/2024, 020 05/2024, 03/06/2023, Additional history exists Albumin/Creatinine Ratio [...] Directives occurred with: Not Discussed Care Teams Roll Operator Relationship Specialty Start Date End Date MaryFebruary Devonte, PAMatthiasC [address] [place], [place] [address] PCP - General Physician Confectionery Cooker 09/16/24 documented as of this encounter
[2024-11-25] MEDS ORDERED: NON-FORMULARY MEDICATION (Lidocaine 4 % adhesive patch,medicated) TOP PRN (23:28)
--- NOTE | 2024-11-25 23:28 | History & Physical Report ---
Date of Service November 25, 2024 Assessment & Plan (1) Pleural effusion: (2) Small cell lung cancer, left upper lobe: Plan: 69-year-old female with history of metastatic lung cancer, asthma, etc. presenting with shortness of breath times few days. Left-sided pleural effusion Metastatic lung cancer Status post pigtail insertion by Dr. Field Follow-up fluid studies Currently taking Tagrisso oral chemo Chronic cough, likely mod persistent asthma -Perforomist, budesonide ordered History of PE: Patient reports history of PE in 2001 postoperatively. Patient reports she was never put on any blood thinner. Not on any blood thinner currently. PCP follow-up Other chronic medical condition: HTN, HLD, hypothyroidism etc. ---> continue with/resume home meds as when able. DVT prophylaxis SCDs for now Start Lovenox once cleared by house detective DNR as per patient Disposition Lives with family at home Admission and Anticipated Discharge Date Admission Date: November 25, 2024 History of Present Illness Chief Complaint: Shortness of breath times few days. Primary Care Provider: Cj Rico MD 69-year-old female with history of metastatic lung cancer, asthma, etc. presenting with shortness of breath times few days. Patient has metastatic lung cancer and is currently receiving Tagrisso oral chemotherapy. For the past few days the patient has had progressive shortness of breath with dry cough, no fevers or chills, chest pain. At the ER,, patient received blood pressure 149/83, heart rate 108, 92% on room air. CT chest showing 1. No pulmonary emboli identified. 2. Mild progression of metastatic disease since chest CT of October 14, 2024, as described above. Large malignant left pleural effusion which has significantly increased in size since prior exam. This results in diminished aeration of the left lung. 3. Mild progression of thoracic lymphadenopathy. 4. No significant change in several small right lower lobe pulmonary nodules. Pulmonary service consulted, pigtail catheter placed at the bedside. Fluids were sent for labs, culture and cytology Postprocedure, patient seen resting in bed, comfortable, on 2 L of O2 States breathing is starting to improve Having some pain over the insertion site Otherwise feels fine overall Allergies Allergy/AdvReac Type Severity Reaction Status Date / Time losartan Allergy Severe SWELLING Verified 11/25/24 17:40 OF FACE, LIPS & TONGUE Penicillins Allergy Severe SWELLING Verified 11/25/24 17:40 OF FACE, LIPS & TONGUE fentanyl Allergy Intermediate itching Verified 11/25/24 17:40 oxycodone Allergy Intermediate ITCHING Verified 11/25/24 17:40 ALL OVER tramadol AdvReac Severe Hallucinati Verified 11/25/24 17:40 ons Sulfa (Sulfonamide AdvReac Intermediate URNIARY Verified 11/25/24 17:40 Antibiotics) FREQUENCY sulfamethoxazole AdvReac Intermediate URNIARY Verified 11/25/24 17:40 FREQUENCY topiramate AdvReac Intermediate Blurry Verified 11/25/24 17:40 Vision metronidazole AdvReac Mild STOMACH Verified 11/25/24 17:40 PAIN trimethoprim AdvReac Mild URINARY Verified 11/25/24 17:40 FREQUENCY Home Medications Medication Instructions Recorded Confirmed Type acyclovir 400 mg tablet 400 mg PO TID PRN Cold Sore(s) 08/22/18 11/25/24 History albuterol sulfate 90 mcg/actuation 2 puff inhalation Q4H PRN Wheezing 08/22/18 11/25/24 History aerosol inhaler (Ventolin HFA) levothyroxine 100 mcg tablet 100 mcg PO DAILYBB 08/22/18 11/25/24 History alirocumab 75 mg/mL subcutaneous 75 mg subcut Q14D 09/19/23 11/25/24 History pen injector (Praluent Pen) aspirin 81 mg tablet,delayed 81 mg PO DAILY 09/19/23 11/25/24 History release cholecalciferol (vitamin D3) 25 25 mcg PO DAILY 09/19/23 11/25/24 History mcg (1,000 unit) capsule famotidine 20 mg tablet 20 mg PO BID 09/19/23 11/25/24 History ipratropium 0.5 mg-albuterol 3 mg 3 ml inhalation Q6H PRN Wheezing 09/19/23 11/25/24 History (2.5 mg base)/3 mL nebulization soln lorazepam 0.5 mg tablet (Ativan) 0.5 mg PO Q6H PRN anxiety, 09/08/24 11/25/24 History insomnia, nausea from cancer osimertinib 80 mg tablet (Tagrisso) 80 mg PO PM 09/08/24 11/25/24 History zolpidem 10 mg tablet 10 mg PO HS 09/08/24 11/25/24 History lidocaine 4 % topical patch 1 patch topical DAILY PRN pain #30 09/10/24 11/25/24 Rx ea baclofen 10 mg tablet 20 mg PO BID 09/11/24 11/25/24 History prochlorperazine maleate 10 mg 10 mg PO DAILY PRN Nausea And 09/11/24 11/25/24 History tablet Vomiting lisinopril 20 mg tablet 10 mg PO DAILY 09/25/24 11/25/24 History hydromorphone 4 mg tablet 4 mg PO Q4H PRN pain 1 month #90 11/06/24 11/25/24 Rx (Dilaudid) tabs docusate sodium 100 mg capsule 100 mg PO BID PRN Constipation 11/25/24 11/25/24 History guaifenesin 600 mg tablet, 600 mg PO BID PRN chest congestion 11/25/24 11/25/24 History extended release 12 hr (Mucinex) morphine 15 mg tablet,extended 15 - 30 mg PO Q12H cancer pain and 11/25/24 11/25/24 History release (MS Contin) dyspnea ondansetron HCl 8 mg tablet 8 mg PO Q6H PRN Nausea And Vomiting 11/25/24 11/25/24 History polyethylene glycol 3350 17 gram 17 g PO DAILY PRN Constipation 11/25/24 11/25/24 History oral powder packet (Miralax) Past Med/Surg History Problem List (Updated 11/25/24 @ 17:20 by Michael Figueroa MD) Pleural effusion (Acute) Back muscle spasm Small cell lung cancer, left upper lobe Opioid-induced constipation Acute generalized abdominal pain (Acute) Acute left flank pain (Acute) Dyspnea and respiratory abnormalities Drug-induced skin rash Nausea Anxiety associated with cancer diagnosis Anxiety Primary lung squamous cell carcinoma (Acute) Advanced care planning/counseling discussion Palliative care by specialist Weakness generalized Cancer related pain (Acute) Myofascial pain (Acute) Cervicalgia Lung cancer (Acute) Weak Chest pain (Acute) SOB (shortness of breath) (Acute) Epicondylitis, lateral, right Rotator cuff tear, left Abdominal pain (Acute) Diverticulitis Lumbar radiculopathy (Acute) Spondylisthesis (Acute 03/24/14) Urinary problem URINARY LEAKAGE Osteomyelitis (Acute) Discitis (Acute) Lymphadenopathy Tinnitus of both ears Sensorineural hearing loss of both ears Arthritis Gout Adverse reaction to anesthetic agent Unable to come out of it for 3 days Rhinitis GERD (gastroesophageal reflux disease) Encounter for pre-operative examination HLD (hyperlipidemia) (Chronic) GERD (gastroesophageal reflux disease) (Chronic) S/P colon resection (Chronic) chronic diverticulits Hx of fusion of cervical spine (Chronic) (at least 3 levels fused together) Full ROM S/P lumbar fusion (Chronic) Pneumonia hx Bronchitis hx Asthma (Chronic) inhalers prn High blood pressure (Chronic) Irritable colon (Chronic Unknown) Medical History Incomplete rotator cuff tear or rupture of left shoulder, not specified as traumatic Encounter for pre-operative examination Intractable back pain Compression fracture of T12 vertebra Prediabetes RECENT NEW SCRIPT FOR METFORMIN Hx of Clostridium difficile infection APPROX 5 YRS AGO Hx of discitis treated at [facility] (2019) Hx of deep venous thrombosis ~2018 Pulmonary embolism hx of 2006 Pseudogout Hypothyroidism Chronic back pain Osteoarthritis Abdominal hernia no surgery Peripheral neuropathy Migraine hx Chronic obstructive pulmonary disease mild Sleep apnea NO MACHINE Surgical History History of right cataract surgery SEP 2020 History of anesthesia reaction EXTREMELY SLOW TO WAKE UP (COLON RESECTION) History of dilatation and curettage History of total abdominal hysterectomy and bilateral salpingo-oophorectomy History of carpal tunnel release RT History of bunionectomy RT FOOT History of appendectomy History of esophagogastroduodenoscopy (EGD) History of colonoscopy History of tooth extraction History of tonsillectomy History of adenoidectomy S/P ablation of atrial fibrillation ~2014 Family History Mother Family history of esophageal cancer Hearing loss Father Hearing loss Brother Hearing loss Other Cancer Gallbladder disease Heart disease Hypertension Lung disease No family history of adverse response to anesthesia No family history of bleeding disorder Stroke Social History Smoking Status: Former smoker Tobacco Type: Cigarettes Second Hand Exposure: No; Do You Dip or Chew Tobacco: No; Hx Alcohol Use: No Hx Substance Use: No Preferred Language: Upper Sorbian Communication Ability: Effective Horticultural Worker Required: No Beliefs That Will Affect Care: None Current Living Situation: Alone current occupational status: retired Feels Safe at Home: Yes Assistive Devices: None Review of Systems Review of Systems: all noted and negative except for above Physical Exam Physical Exam: General- oriented x 3, not in distress, speaks in sentences with no effort or accessory muscle use Head- atraumatic Eyes- PERRL, EOMI, anicteric ENT- oropharynx clear Neck- supple, no JVD, no adenopathy, no thyromegaly; carotids +2/2, no bruits appreciated Lungs-Decreased breath sounds left lung culver, visual catheter in place, draining serosanguineous fluid Right lung essentially clear Heart- normal rate, regular rhythm; no murmur, no gallop, no rub appreciated Abdomen- normal bowel sounds, nondistended, soft, nontender, no masses or hepatosplenomegaly Extremities- no pretibial edema, no calf tenderness; peripheral pulses intact Neuro- alert, oriented x 3; CN 2-12 grossly intact; motor 5/5 bilaterally;sensation 100% on all extremities; no other gross focal neurologic deficits Skin- warm & dry Results & Data Results & Data Vital Signs (Past 12 Hours) Vital Signs Temp Pulse Pulse Resp BP BP Pulse Ox 11/25/24 22:20 89 11/25/24 22:17 36.8 C 84 18 126/75 93 11/25/24 21:09 86 18 97 11/25/24 21:05 11/25/24 20:33 94 H 11/25/24 20:19 36.6 C 93 H 20 124/76 94 11/25/24 20:15 11/25/24 20:13 76 18 149/100 H 98 11/25/24 19:36 11/25/24 18:47 11/25/24 18:04 94 H 11/25/24 16:14 104 H 22 157/94 H 88 L 11/25/24 15:10 95 H 20 94 11/25/24 15:10 99 H 22 135/75 94 11/25/24 14:18 97 H 11/25/24 13:25 11/25/24 13:06 36.8 C 108 H 18 149/83 H 92 Pulse Ox O2 Del Method O2 Del Method O2 Flow Rate 11/25/24 22:20 11/25/24 22:17 Nasal Cannula 2 11/25/24 21:09 Nasal Cannula 2 11/25/24 21:05 Nasal Cannula 2 11/25/24 20:33 11/25/24 20:19 Nasal Cannula 2 11/25/24 20:15 Nasal Cannula 2 11/25/24 20:13 Room Air 2 11/25/24 19:36 98 Nasal Cannula 11/25/24 18:47 Nasal Cannula 2 11/25/24 18:04 11/25/24 16:14 11/25/24 15:10 Room Air 11/25/24 15:10 11/25/24 14:18 11/25/24 13:25 Room Air 11/25/24 13:06 Room Air all noted and reviewed including below Code Status & VTE Plan VTE Prophylaxis Plan VTE Prophylaxis will be ordered: Yes
[2024-11-26] MEDS: MoRPHine SULFATE CR 15 MG TABCR PO SCH (00:48)
[2024-11-26] MEDS: ZOLPIDEM TARTRATE 5 MG TAB PO PRN (00:48)
[2024-11-26] MEDS: guaiFENesin 600 MG TABCR PO PRN (05:31)
[2024-11-26] MEDS: DOCUSATE SODIUM 100 MG CAP PO PRN (05:33)
[2024-11-26] MEDS: CHOLECALCIFEROL 25 MCG (1000 UNITS) TAB PO SCH (07:38)
[2024-11-26] MEDS: BACLOFEN 20 MG TAB PO SCH (07:39)
[2024-11-26] MEDS: FAMOTIDINE 20 MG TAB PO SCH (07:39)
[2024-11-26] MEDS: lisinopril 10 MG TAB PO SCH (07:40)
[2024-11-26] MEDS: LIDOCAINE 5% 1 PATCH TD SCH (07:41)
--- NOTE | 2024-11-26 08:28 | Hospitalist Progress Note ---
Date of Service November 26, 2024 Assessment & Plan (1) Pleural effusion: (2) Small cell lung cancer, left upper lobe: Plan: 69-year-old female with history of metastatic lung cancer, asthma, etc. presenting with shortness of breath times few days. Left-sided pleural effusion Metastatic lung cancer Status post pigtail insertion by Dr. Davis Follow-up fluid studies Currently taking Tagrisso oral chemo Per pulmonary med (Dr. Davis) - Total 1.4 L of fluid has been removed so far. Patient likely will have a component of normal ex-vacuo as I do think pleural involvement is there. There is no air leak appreciated on the chest tube We will continue with chest tube for another day with goal to take the tube out tomorrow. Continue with BiPAP nightly and as needed shortness of breath Overall prognosis is poor Chronic cough, likely mod persistent asthma -Perforomist, budesonide ordered History of PE: Patient reports history of PE in 2001 postoperatively. Patient reports she was never put on any blood thinner. Not on any blood thinner currently. PCP follow-up Other chronic medical condition: HTN, HLD, hypothyroidism etc. ---> continue with/resume home meds as when able. Hold lisinopril for now, BP on lower side DVT prophylaxis SCDs for now Start Lovenox DNR as per patient Disposition Lives with family at home Admission and Anticipated Discharge Date Admission Date: November 25, 2024 Subjective Pt seen in follow up of L pl. effusion, hx of squamous cell lung ca. S/p pigtail chest tube placement Sitting up in bed in NAD however does have some pain w/ chest tube No other chest pain , breathing overall improved Pulmonary medicine consulted and following Review of Systems Review of Systems: All systems reviewed & are unremarkable except as noted in Subjective Physical Exam Physical Exam: General- oriented x 3, not in distress, speaks in sentences with no effort or accessory muscle use Head- atraumatic Eyes- PERRL, EOMI, anicteric Neck- supple Lungs-Decreased breath sounds left lung culver, visual catheter in place, draining serosanguineous fluid Basilar crackles b/l No wheezing Heart- normal rate, regular rhythm; no murmur Abdomen- normal bowel sounds, nondistended, soft, nontender Extremities- no pretibial edema, no calf tenderness Neuro- alert, oriented x 3; speech fluent, no facial asymmetry, answers appropriately, moves extremities Skin- warm & dry Results & Data Results & Data Vital Signs (Past 12 Hours) Vital Signs Temp Pulse Pulse Resp BP Pulse Ox O2 Del Method 11/26/24 08:09 36.7 C 87 16 121/75 94 Nasal Cannula 11/26/24 07:19 82 18 95 Nasal Cannula 11/26/24 07:00 85 11/26/24 03:50 36.6 C 86 14 111/73 94 Nasal Cannula 11/25/24 22:20 89 11/25/24 22:17 36.8 C 84 18 126/75 93 Nasal Cannula 11/25/24 21:09 86 18 97 Nasal Cannula 11/25/24 21:05 Nasal Cannula 11/25/24 20:33 94 H O2 Flow Rate 11/26/24 08:09 2 11/26/24 07:19 2 11/26/24 07:00 11/26/24 03:50 2 11/25/24 22:20 11/25/24 22:17 2 11/25/24 21:09 2 11/25/24 21:05 2 11/25/24 20:33 Laboratory Results 11/25/24 11/25/24 11/25/24 Range/Units 20:11 17:34 17:00 WBC (4.8-10.8) K/ul RBC (4.20-5.40) M/uL Hgb (12.0-16.0) g/dl POC Hgb (12.0-16.0) g/dl Hct (37.0-47.0) % POC Hct (37-47) % MCV (80.0-100.0) fL MCH (25.0-34.0) pg MCHC (32.0-36.0) g/dL RDW Std Deviation (36.4-46.3) fL RDW Coeff of Viky (11.5-14.5) % Plt Count (130-400) K/uL MPV (9.4-12.4) fL Immature Gran % (Auto) % Neut % (Auto) % Lymph % (Auto) % Jerauld % (Auto) % Eos % (Auto) % Baso % (Auto) % Neut # (Auto) (1.40-6.50) K/uL Lymph # (Auto) (1.20-3.40) K/uL Jerauld # (Auto) (0.11-0.59) K/uL Eos # (Auto) (0.00-0.50) K/uL Baso # (Auto) (0.00-0.20) K/uL Immature Gran # (Auto) (0.01-0.20) K/uL PT (9.0-12.0) Seconds INR (0.9-1.1) APTT (21-31) Seconds PTT Ratio POC Sodium (135-144) mmol/L Sodium (136-145) mmol/L POC Potassium (3.3-5.0) mmol/L Potassium (3.5-5.1) mmol/L POC Chloride (101-112) mmol/L Chloride (98-107) mmol/L Carbon Dioxide (21-32) mmol/L POC Total CO2 (24-31) mmol/L Anion Gap (3-11) POC Anion Gap (16-25) mmol/L POC BUN (7-18) mg/dl BUN (6-23) mg/dl Creatinine (0.6-1.2) mg/dl POC Creatinine (0.6-1.3) mg/dl Est Cr Clr Drug Dosing eGFR BUN/Creatinine Ratio (10-20) Glucose (70-99(Fasting)) mg/dl POC Glucose (other) (70-99) mg/dl Calcium (8.6-10.3) mg/dl POC Ioniz Calcium Reginaldo (1.12-1.32) mmol/l Magnesium (1.7-2.4) mg/dl Total Bilirubin 0.5 (0.2-1.0) mg/dl AST (13-39) U/L ALT (7-52) U/L Alkaline Phosphatase (34-104) U/L Lactate Dehydrogenase 279 H (86-244) U/L Troponin I High Sens (0-14) pg/ml Total Protein 6.0 (6.0-8.3) gm/dl Albumin 3.5 (3.4-5.0) gm/dl Globulin (2.5-4.0) gm/dl Albumin/Globulin Ratio (0.9-2) Urine Color Yellow Urine Appearance Clear (Clear) Urine pH 5.0 (4.5-7.5) Ur Specific [place] > 1.045 H (1.000-1.030) Urine Protein Trace H (Negative) Urine Glucose (UA) Negative (Negative) Urine Ketones Trace H (Negative) Urine Blood Negative (Negative) Urine Nitrite Negative (Negative) Urine Bilirubin Negative (Negative) Urine Urobilinogen Negative (Negative) Ur Leukocyte Esterase Negative (Negative) Urine WBC (Auto) 0-5 (0-5) /hpf Urine RBC (Auto) 0-2 (0-2) /hpf U Hyaline Cast (Auto) 0-2 (0-2) /lpf U Epithel Cells (Auto) 0-2 (0-2) /hpf Urine Bacteria (Auto) None Seen (None Seen) Fluid Neutrophils % 0 % Fluid Lymphocytes % 32 % Fluid Eosinophils % 32 % Fluid Meso/Macro/Jerauld % 36 % Fluid Comment Pleural Fluid Source Left Lung Pleural Color Yellow Pleural Appearance Hazy Pleural pH 7.60 H (7.3-7.4) Pleural WBC (Auto) 622 /uL Pleural RBC (Auto) 2000 /uL Pleural Total Protein 3.2 gm/dl Pleural LDH 179 U/L Pleural Glucose 102 mg/dl Pleural Amylase 10 U/L Adenovirus (PCR) (NotDetected) B. pertussis DNA (PCR) (NotDetected) B.parapertussis DNA PCR (NotDetected) C. pneumoniae DNA (PCR) (NotDetected) Coronavirus OC43 (PCR) (NotDetected) Coronavirus HKU1 (PCR) (NotDetected) Coronavirus 229E (PCR) (NotDetected) SARS-CoV-2 (PCR) (NotDetected) Coronavirus NL63 (PCR) (NotDetected) Human Metapneumovir PCR (NotDetected) Influenza Type A (PCR) (NotDetected) Influenza Type B (PCR) (NotDetected) M. pneumoniae (PCR) (NotDetected) Parainfluenza 1 (PCR) (NotDetected) Parainfluenza 2 (PCR) (NotDetected) Parainfluenza 3 (PCR) (NotDetected) Parainfluenza 4 (PCR) (NotDetected) RSV (PCR) (NotDetected) Entero/Rhino (PCR) (NotDetected) 11/25/24 11/25/24 11/25/24 Range/Units 14:14 13:57 13:20 WBC 12.11 H (4.8-10.8) K/ul RBC 4.70 (4.20-5.40) M/uL Hgb 14.4 (12.0-16.0) g/dl POC Hgb 15.0 (12.0-16.0) g/dl Hct 41.0 (37.0-47.0) % POC Hct 44 (37-47) % MCV 87.2 (80.0-100.0) fL MCH 30.6 (25.0-34.0) pg MCHC 35.1 (32.0-36.0) g/dL RDW Std Deviation 43.4 (36.4-46.3) fL RDW Coeff of Viky 13.5 (11.5-14.5) % Plt Count 332 (130-400) K/uL MPV 9.3 L (9.4-12.4) fL Immature Gran % (Auto) 0.4 % Neut % (Auto) 74.7 % Lymph % (Auto) 7.1 % Jerauld % (Auto) 8.4 % Eos % (Auto) 8.8 % Baso % (Auto) 0.6 % Neut # (Auto) 9.05 H (1.40-6.50) K/uL Lymph # (Auto) 0.86 L (1.20-3.40) K/uL J[place] # (Auto) 1.02 H (0.11-0.59) K/uL Eos # (Auto) 1.06 H (0.00-0.50) K/uL Baso # (Auto) 0.07 (0.00-0.20) K/uL Immature Gran # (Auto) 0.05 (0.01-0.20) K/uL PT 12.5 H (9.0-12.0) Seconds INR 1.2 H (0.9-1.1) APTT 27 (21-31) Seconds PTT Ratio 1.0 POC Sodium 136 (135-144) mmol/L Sodium 136 (136-145) mmol/L POC Potassium 4.4 (3.3-5.0) mmol/L Potassium 4.0 (3.5-5.1) mmol/L POC Chloride 101 (101-112) mmol/L Chloride 103 (98-107) mmol/L Carbon Dioxide 24 (21-32) mmol/L POC Total CO2 26 (24-31) mmol/L Anion Gap 9 (3-11) POC Anion Gap 14.0 L (16-25) mmol/L POC BUN 9 (7-18) mg/dl BUN 10 (6-23) mg/dl Creatinine 0.67 (0.6-1.2) mg/dl POC Creatinine 0.7 (0.6-1.3) mg/dl Est Cr Clr Drug Dosing Not Reportable eGFR 93.39 BUN/Creatinine Ratio 14.9 (10-20) Glucose 104 H (70-99(Fasting)) mg/dl POC Glucose (other) 97 (70-99) mg/dl Calcium 9.0 (8.6-10.3) mg/dl POC Ioniz Calcium Reginaldo 1.10 L (1.12-1.32) mmol/l Magnesium 1.8 (1.7-2.4) mg/dl Total Bilirubin 0.5 (0.2-1.0) mg/dl AST 13 (13-39) U/L ALT 6 L (7-52) U/L Alkaline Phosphatase 62 (34-104) U/L Lactate Dehydrogenase (86-244) U/L Troponin I High Sens 7.1 (0-14) pg/ml Total Protein 6.2 (6.0-8.3) gm/dl Albumin 3.7 (3.4-5.0) gm/dl Globulin 2.5 (2.5-4.0) gm/dl Albumin/Globulin Ratio 1.5 (0.9-2) Urine Color Urine Appearance (Clear) Urine pH (4.5-7.5) Ur Specific [place] (1.000-1.030) Urine Protein (Negative) Urine Glucose (UA) (Negative) Urine Ketones (Negative) Urine Blood (Negative) Urine Nitrite (Negative) Urine Bilirubin (Negative) Urine Urobilinogen (Negative) Ur Leukocyte Esterase (Negative) Urine WBC (Auto) (0-5) /hpf Urine RBC (Auto) (0-2) /hpf U Hyaline Cast (Auto) (0-2) /lpf U Epithel Cells (Auto) (0-2) /hpf Urine Bacteria (Auto) (None Seen) Fluid Neutrophils % % Fluid Lymphocytes % % Fluid Eosinophils % % Fluid Meso/Macro/Jerauld % % Fluid Comment Pleural Fluid Source Pleural Color Pleural Appearance Pleural pH (7.3-7.4) Pleural WBC (Auto) /uL Pleural RBC (Auto) /uL Pleural Total Protein gm/dl Pleural LDH U/L Pleural Glucose mg/dl Pleural Amylase U/L Adenovirus (PCR) Not Detected (NotDetected) B. pertussis DNA (PCR) Not Detected (NotDetected) B.parapertussis DNA PCR Not Detected (NotDetected) C. pneumoniae DNA (PCR) Not Detected (NotDetected) Coronavirus OC43 (PCR) Not Detected (NotDetected) Coronavirus HKU1 (PCR) Not Detected (NotDetected) Coronavirus 229E (PCR) Not Detected (NotDetected) SARS-CoV-2 (PCR) Not Detected (NotDetected) Coronavirus NL63 (PCR) Not Detected (NotDetected) Human Metapneumovir PCR Not Detected (NotDetected) Influenza Type A (PCR) Not Detected (NotDetected) Influenza Type B (PCR) Not Detected (NotDetected) M. pneumoniae (PCR) Not Detected (NotDetected) Parainfluenza 1 (PCR) Not Detected (NotDetected) Parainfluenza 2 (PCR) Not Detected (NotDetected) Parainfluenza 3 (PCR) Not Detected (NotDetected) Parainfluenza 4 (PCR) Not Detected (NotDetected) RSV (PCR) Not Detected (NotDetected) Entero/Rhino (PCR) Not Detected (NotDetected) Medications Administered Current Inpatient Medications Acetaminophen (Acetaminophen 325 Mg Tab) 650 mg PO Q4H PRN PRN Reason: Pain or Fever Stop: 12/25/24 16:34 Hydrocodone Bitart/Acetaminophen (Hydrocodone/Acetamophen 5/325mg Tab) 1 tab PO QID PRN PRN Reason: Pain Stop: 12/09/24 20:39 Baclofen (Baclofen 20 Mg Tab) 20 mg PO BID [facility] Stop: 12/26/24 08:59 Last Admin: 11/26/24 07:39 Dose: 20 mg Budesonide (Budesonide 0.5 Mg/2 Ml Vial (Pulmicort)) 0.5 mg NEB BIDR [facility] Stop: 12/25/24 18:59 Last Admin: 11/26/24 07:18 Dose: 0.5 mg Docusate Sodium (Docusate Sodium 100 Mg Cap) 100 mg PO BID PRN PRN Reason: Constipation Stop: 12/25/24 23:27 Last Admin: 11/26/24 05:33 Dose: 100 mg Famotidine (Famotidine 20 Mg Tab) 20 mg PO BID [facility] Stop: 12/26/24 08:59 Last Admin: 11/26/24 07:39 Dose: 20 mg Formoterol Fumarate (Formoterol 20 Mcg/2 Ml Vial) 20 mcg INH BIDR [facility] Stop: 12/25/24 18:59 Last Admin: 11/26/24 07:18 Dose: 20 mcg Guaifenesin (Guaifenesin 600 Mg Tabcr) 600 mg PO BID PRN PRN Reason: chest congestion Stop: 12/25/24 23:27 Last Admin: 11/26/24 05:31 Dose: 600 mg Hydromorphone HCl (Hydromorphone Inj 0.5 Mg/0.5 Ml Syr) 1 mg IV Q4H PRN PRN Reason: MODERATE TO SEVERE PAIN Stop: 12/09/24 17:12 Last Admin: 11/26/24 05:33 Dose: 1 mg Lidocaine (Lidocaine 5% 1 Patch) 1 patch TD DAILY [facility] Stop: 12/26/24 08:59 Last Admin: 11/26/24 07:41 Dose: 1 patch Lisinopril (Lisinopril 10 Mg Tab) 10 mg PO DAILY [facility] Stop: 12/26/24 08:59 Last Admin: 11/26/24 07:40 Dose: 10 mg Miscellaneous (Remove Lidoderm Patch) 1 each N/A DAILY@2100 [facility] Stop: 12/25/24 20:59 Last Admin: 11/25/24 20:57 Dose: 1 each Miscellaneous (Synthroid - Order Awaiting Action) 1 each N/A QS [facility] Stop: 12/26/24 07:59 Last Admin: 11/26/24 07:09 Dose: Not Given Miscellaneous (Osimertinib [Tagrisso] 80 Mg - Order Awaiting Action) 1 each N/A QS [facility] Stop: 12/26/24 07:59 Last Admin: 11/26/24 07:09 Dose: Not Given Morphine Sulfate (Morphine Sulfate Cr 15 Mg Tabcr) 15 mg PO Q12 [facility] Stop: 12/10/24 00:44 Last Admin: 11/26/24 00:48 Dose: 15 mg Polyethylene Glycol (Polyethylene (Miralax) 17 Gm Pack) 17 gm PO DAILY PRN PRN Reason: Constipation Stop: 12/25/24 23:27 Vitamin D (Cholecalciferol 25 Mcg (1000 Units) Tab) 25 mcg PO DAILY [facility] Stop: 12/26/24 08:59 Last Admin: 11/26/24 07:38 Dose: 25 mcg Zolpidem Tartrate (Zolpidem Tartrate 5 Mg Tab) 10 mg PO HS PRN PRN Reason: insomnia Stop: 12/25/24 23:04 Last Admin: 11/26/24 00:48 Dose: 10 mg
[2024-11-26] MEDS: ACETAMINOPHEN 325 MG TAB PO PRN (08:38)
[2024-11-26 08:47] LABS: Hematocrit (blood only) 38.6 % (37.0-47.0); Hemoglobin 13.2 g/dl (12.0-16.0); Mean Corpuscular Hemoglobin 30.1 pg (25.0-34.0); Mean Corpuscular Hgb Conc 34.2 g/dL (32.0-36.0); Mean Corpuscular Volume 88.1 fL (80.0-100.0); Platelet Count 283 K/uL (130-400); RDW Coefficient of Variation 13.4 % (11.5-14.5); RDW Standard Deviation 43.4 fL (36.4-46.3); Red Blood Count 4.38 M/uL (4.20-5.40); White Blood Count 10.99 K/ul (4.8-10.8)
[2024-11-26 09:04] LABS: BUN Creatinine Ratio 18.1 (10-20); Calcium 8.2 mg/dl (8.6-10.3); Creatinine Clr Calc Pharmacy 65.7 ml/min; Magnesium 1.7 mg/dl (1.7-2.4)
--- NOTE | 2024-11-26 09:12 | XRay Report ---
XR chest 1V portable CLINICAL HISTORY: f/u COMPARISON STUDY: Chest radiograph and chest CT November 25, 2024. FINDINGS: The left pleural catheter has been repositioned. The left pleural effusion has significantl y decreased in size since prior examination. A small lucency projects over the left midlung. Left ernst g aeration has improved. There is no definite pneumothorax. Cardiomediastinal silhouette is stable. T here are postoperative finding within the cervical spine. IMPRESSION: 1. Significant decrease in size of a left pleural effusion. Left pleural catheter in place. Improveme nt in left lung aeration. 2. Small lucency within the left midlung. This may be artifactual or represent a small amount of pleu ral gas. No significant pneumothorax. ACT 112: Negative or not required by law. Electronically signed by: Arsen Dominguez M.D. 11/26/2024 9:09 AM
[2024-11-26] MEDS: ENOXAPARIN INJ 40 MG/0.4 ML SYR SQ SCH (09:34)
--- NOTE | 2024-11-26 10:09 | Pulmonology Progress Note ---
Date of Service November 26, 2024 Assessment & Plan (1) Pleural effusion: (2) Small cell lung cancer, left upper lobe: (3) SOB (shortness of breath): (4) Sleep apnea: (5) Chronic obstructive pulmonary disease: Plan CT chest 11/25/2024 personally reviewed: Large left-sided pleural effusion with compressive atelectasis of whole left lower lobe Interlobular thickening in the left upper lobe Mediastinal shift to the right There is mediastinal as well as hilar lymphadenopathy -- Pleural effusion Large left-sided Respiratory BioFire negative for everything S/p pigtail catheter placement 11/25/2025, sanguinous exudative fluid -- History of metastatic squamous cell carcinoma Diagnosed April 2024 As per the patient latest PET/CT shows worsening of the findings Had MRI of the brain a month ago which did not show any metastasis as per the patient On osimertinib --COPD with emphysema Does not seem to be in exacerbation Only on albuterol and DuoNebs at home Would recommend BrezTri or Trelegy on discharge -- JOLANTA On BiPAP 11/01 at home Plan: Total 1.4 L of fluid has been removed so far. Patient likely will have a component of normal ex-vacuo as I do think pleural involvement is there. There is no air leak appreciated on the chest tube We will continue with chest tube for another day with goal to take the tube out tomorrow. Continue with BiPAP nightly and as needed shortness of breath Overall prognosis is poor Please note the above document was generated using voice recognition software. It may contain grammatical, syntax or spelling errors.Any formal questions or concerns about the content, text or information contained within the body of this dictation should be directly addressed to the provider for clarification. Admission and Anticipated Discharge Date Admission Date: November 25, 2024 Subjective Patient seen and examined at bedside. No acute distress, no events overnight Does complain of some discomfort at the site of the chest tube Shortness of breath is significantly improved compared to yesterday Occasional cough with clear phlegm No hemoptysis Denies any headache Was saturating 97% on 1 L Review of Systems 2 Review of Systems: All systems reviewed & are unremarkable except as noted in Subjective Physical Exam 2 Physical Exam: Constitutional: No acute distress HEENT: EOMI, PERRLA Respiratory system: Decreased air entry on the left side, no wheeze, no rhonchi, positive crackles bilaterally CVS: S1-S2 positive, no murmurs or gallops, accentuated P2 Abdomen: Soft, nontender, nondistended, positive bowel sounds x4 Extremities: +2 pulses bilaterally radialis/ dorsalis pedis, no cyanosis, +1 pitting edema bilateral lower extremity Neuro: Awake alert oriented x3 Psych: Normal mood and affect G/U: No Pope Skin: no rashes, warm and dry Lymphatic: no cervical or axillary lymphadenopathy Results & Data Results & Data Vital Signs (Past 12 Hours) Vital Signs Temp Pulse Pulse Resp BP Pulse Ox O2 Del Method 11/26/24 09:58 Nasal Cannula 11/26/24 08:09 36.7 C 87 16 121/75 94 Nasal Cannula 11/26/24 07:19 82 18 95 Nasal Cannula 11/26/24 07:00 85 11/26/24 03:50 36.6 C 86 14 111/73 94 Nasal Cannula 11/25/24 22:20 89 11/25/24 22:17 36.8 C 84 18 126/75 93 Nasal Cannula O2 Flow Rate 11/26/24 09:58 2 11/26/24 08:09 2 11/26/24 07:19 2 11/26/24 07:00 11/26/24 03:50 2 11/25/24 22:20 11/25/24 22:17 2 Laboratory Results 11/26/24 08:35 11/26/24 08:35 PG Care Time/CCT Total # of Minutes Spent Total Time Spent with Patient: Total time spent is greater than 50% in coordination of care (as documented) at patient's floor/unit and/or counseling patient: Coding Level of Care Code 47415 SUB INP/OBS CARE 3/50MIN Diagnoses Pleural effusion J90 Small cell lung cancer, left upper lobe C34.12 SOB (shortness of breath) R06.02 Sleep apnea G47.30 Chronic obstructive pulmonary disease J44.9
--- NOTE | 2024-11-26 10:20 | CT Scan Report ---
NECK CT WITHOUT CONTRAST CLINICAL HISTORY: Dysphagia. Lung cancer. COMPARISON STUDY: MRI of the cervical spine July 27, 2024. CT of the cervical spine June 27. CT of the neck November 04, 2020. FINDINGS: Visualized portions of the intracranial contents are unremarkable on unenhanced examination . There are postoperative findings consistent with C4-C7 anterior discectomy and fusion. Postoperativ e appearance is similar to neck CT of November 04, 2020. No suspicious lesions within the cervical sp ine are identified. There are no cervical spine fractures. Evaluation of the neck is compromised on u nenhanced exam. No fluid collections are identified. There is no prevertebral edema. The glottis is c losed. Apparent medialization of the right vocal cord may be due to a closed glottis. Multiple enlarg ed cervical and mediastinal lymph nodes are again noted, as shown on recent chest CT. A left supracla vicular lymph node on image [id number] of 341 measures 2 x 1.3 cm. Trace left apical pleural gas is noted. L eft apical mass is again noted as well as left pleural implants and nodular interlobular septal thick ening within the left upper lobe. IMPRESSION: 1. Pathologic cervical and mediastinal lymphadenopathy, as described above. 2. 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 Trace left pleural gas, likely related to recent thoracente sis. 3. No fluid collections within the neck. No prevertebral edema. 4. No mucosal lesions within the neck although sensitivity diminished on unenhanced exam. ACT 112: Negative or not required by law. Electronically signed by: Arsen Dominguez M.D. 11/26/2024 10:18 AM
--- NOTE | 2024-11-26 21:17 | XRay Report ---
Exam(s): XR KUB EXAM: XR Abdomen, 1 View CLINICAL HISTORY: Reason for exam: left lower ab pain. TECHNIQUE: Frontal supine view of the abdomen/pelvis. COMPARISON: No relevant prior studies available. FINDINGS: Gastrointestinal tract: Gas distended colon may represent ileus. Bones/joints: Posterior hardware fixation L5-S1. Vertebral augmentation at L1. Osteopenia. Degenerative change in the spine and sacroiliac joints. No acute osseous findings as visualized. IMPRESSION: Gas distended colon in the left abdomen may represent ileus. Electronically signed by: Akira Alvarado M.D. 11/26/24 21:16 PM
[2024-11-26] MEDS: OSIMERTINIB MESYLATE PO SCH (23:46)
--- NOTE | 2024-11-27 01:45 | Ultrasound Report ---
Exam(s): US VENOUS LEFT LOWER EXTREMITY EXAM: US Duplex Left Lower Extremity Veins CLINICAL HISTORY: Reason for exam: swelling. TECHNIQUE: Real-time duplex ultrasound scan of the left lower extremity veins integrating B-mode two-dimensional vascular structure, Doppler spectral analysis, color flow Doppler imaging and compression. COMPARISON: No relevant prior studies available. FINDINGS: Deep veins: There is deep venous thrombosis in a left posterior tibial vein. No DVT in the visualized common femoral, femoral, proximal deep femoral or popliteal veins. These veins demonstrate normal color flow, are normally compressible, with normal phasic flow and/or augmentation response. Superficial veins: Unremarkable. No thrombus in the visualized great saphenous vein. Soft tissues: No acute findings. No popliteal cyst. IMPRESSION: There is deep venous thrombosis in a left posterior tibial vein. Communications: Call Doctor DVT acute, progressing Electronically signed by: Indra Gomez MD 11/27/24 01:44 AM
--- NOTE | 2024-11-27 01:58 | Communication Note ---
Date of Service: November 27, 2024 Patient complained to nurse of left leg swelling. Ultrasound result: deep venous thrombosis in a left posterior tibial vein. AP Acute LE DVT History lung malignancy IV heparin
[2024-11-27 02:23] LABS: Basophils # (auto) 0.05 K/uL (0.00-0.20); Basophils % (auto) 0.4 %; Eosinophils # (auto) 1.11 K/uL (0.00-0.50); Eosinophils % (auto) 9.6 %; Hematocrit (blood only) 38.5 % (37.0-47.0); Immature Granulocytes # (auto) 0.02 K/uL (0.01-0.20); Immature Granulocytes % (auto) 0.2 %; Lymphocytes # (auto) 1.38 K/uL (1.20-3.40); Mean Corpuscular Hemoglobin 30.2 pg (25.0-34.0); Mean Corpuscular Hgb Conc 33.8 g/dL (32.0-36.0); Mean Corpuscular Volume 89.5 fL (80.0-100.0); Mean Platelet Volume 9.4 fL (9.4-12.4); Monocytes # (auto) 1.11 K/uL (0.11-0.59); Monocytes % (auto) 9.6 %; Neutrophils # (auto) 7.85 K/uL (1.40-6.50); Neutrophils % (auto) 68.2 %; Platelet Count 289 K/uL (130-400); RDW Coefficient of Variation 13.4 % (11.5-14.5); RDW Standard Deviation 44.1 fL (36.4-46.3); White Blood Count 11.52 K/ul (4.8-10.8)
[2024-11-27] MEDS: HEPARIN SODIUM/DEXTROSE 25,000 UNITS/500 ML BAG IV SCH (02:26)
[2024-11-27] MEDS: Heparin IV Adult Wt-Based Standard *NO* INITIAL Bolus Protocol IV STA (02:39)
[2024-11-27 02:52] LABS: BUN Creatinine Ratio 20.3 (10-20); Calcium 8.3 mg/dl (8.6-10.3); Creatinine Clr Calc Pharmacy 73.9 ml/min; Magnesium 1.8 mg/dl (1.7-2.4); Potassium 4.5 mmol/L (3.5-5.1)
[2024-11-27 03:00] LABS: INR 1.3 (0.9-1.1); Partial Thromboplastin Ratio 1.2; Partial Thromboplastin Time 31 Seconds (21-31)
--- NOTE | 2024-11-27 07:46 | Hospitalist Progress Note ---
Date of Service November 27, 2024 Assessment & Plan (1) Pleural effusion: (2) Small cell lung cancer, left upper lobe: Plan: 69-year-old female with history of metastatic lung cancer, asthma, etc. presenting with shortness of breath times few days. Left-sided pleural effusion Metastatic lung cancer Status post pigtail insertion by Dr. Davis Follow-up fluid studies Currently taking Tagrisso oral chemo Per pulmonary med (Dr. Davis) - plan to remove chest today later today Continue with BiPAP nightly and as needed shortness of breath Overall prognosis is poor Abdominal pain - left upper quadrant - KUB obtained - Gas distended colon in the left abdomen may represent ileus. - pt not passing gas since yesterday, no BM in 4 days -> given miralax, will give suppository as well Acute LE DVT Doppler obtained - deep venous thrombosis in a left posterior tibial vein Started on IV heparin overnight - will start coumadin Chronic cough, likely mod persistent asthma -Perforomist, budesonide ordered History of PE: Patient reports history of PE in 2001 postoperatively. Patient reports she was on coumadin before. Not on any blood thinner currently. PCP follow-up Other chronic medical condition: HTN, HLD, hypothyroidism etc. ---> continue with/resume home meds as when able. Hold lisinopril for now, BP on lower side DVT prophylaxis - IV heparin, warfarin DNR as per patient Disposition Lives with family at home Admission and Anticipated Discharge Date Admission Date: November 25, 2024 Subjective Pt seen in follow up of L pl. effusion, hx of squamous cell lung ca. S/p pigtail chest tube placement Sitting up in bed in NAD however continues to have some abd. discomfort. Reports not passing flatus since yesterday, not having BM for 4 days. miralax given, plan for suppository. Pt wants to wait until her chest tube is removed later today. No other chest pain , breathing overall improved Pulmonary medicine consulted and following, plan to remove chest tube today. Contacted by palliative med . - Dr. Bertrand as she follows the pt in clinic - will see and follow up with the pt inpt. Review of Systems Review of Systems: All systems reviewed & are unremarkable except as noted in Subjective Physical Exam Physical Exam: General- oriented x 3, not in distress, speaks in sentences with no effort or accessory muscle use Head- atraumatic Eyes- PERRL, EOMI, anicteric Neck- supple Lungs-Decreased breath sounds left lung culver, visual catheter in place, drain ing serosanguineous fluid Basilar crackles b/l No wheezing Heart- normal rate, regular rhythm; no murmur Abdomen- normal bowel sounds, nondistended, soft, mildly tender at left upper quadrant Extremities- no pretibial edema, no calf tenderness Neuro- alert, oriented x 3; speech fluent, no facial asymmetry, answers appropriately, moves extremities Skin- warm & dry Results & Data Results & Data Vital Signs (Past 12 Hours) Vital Signs Temp Pulse Pulse Resp BP Pulse Ox O2 Del Method 11/27/24 07:20 76 20 92 Nasal Cannula 11/27/24 02:59 36.7 C 79 18 114/65 93 Nasal Cannula 11/26/24 22:51 37.4 C 90 18 120/71 93 Nasal Cannula 11/26/24 22:28 91 H 11/26/24 20:01 90 18 95 Nasal Cannula O2 Flow Rate 11/27/24 07:20 2 11/27/24 02:59 2 11/26/24 22:51 2 11/26/24 22:28 11/26/24 20:01 2 Laboratory Results 11/27/24 11/27/24 11/27/24 Range/Units 06:26 02:09 02:04 WBC 11.52 H (4.8-10.8) K/ul RBC 4.30 (4.20-5.40) M/uL Hgb 13.0 (12.0-16.0) g/dl Hct 38.5 (37.0-47.0) % MCV 89.5 (80.0-100.0) fL MCH 30.2 (25.0-34.0) pg MCHC 33.8 (32.0-36.0) g/dL RDW Std Deviation 44.1 (36.4-46.3) fL RDW Coeff of Viky 13.4 (11.5-14.5) % Plt Count 289 (130-400) K/uL MPV 9.4 (9.4-12.4) fL Immature Gran % (Auto) 0.2 % Neut % (Auto) 68.2 % Lymph % (Auto) 12.0 % Dukes % (Auto) 9.6 % Eos % (Auto) 9.6 % Baso % (Auto) 0.4 % Neut # (Auto) 7.85 H (1.40-6.50) K/uL Lymph # (Auto) 1.38 (1.20-3.40) K/uL Dukes # (Auto) 1.11 H (0.11-0.59) K/uL Eos # (Auto) 1.11 H (0.00-0.50) K/uL Baso # (Auto) 0.05 (0.00-0.20) K/uL Immature Gran # (Auto) 0.02 (0.01-0.20) K/uL PT 14.0 H (9.0-12.0) Seconds INR 1.3 H (0.9-1.1) APTT 31 (21-31) Seconds PTT Ratio 1.2 Heparin Anti-Xa, Unfract Pending Sodium 133 L (136-145) mmol/L Potassium 4.5 (3.5-5.1) mmol/L Chloride 99 (98-107) mmol/L Carbon Dioxide 27 (21-32) mmol/L Anion Gap 7 (3-11) BUN 13 (6-23) mg/dl Creatinine 0.64 (0.6-1.2) mg/dl Est Cr Clr Drug Dosing 73.9 ml/min eGFR 94.42 BUN/Creatinine Ratio 20.3 H (10-20) Glucose 112 H (70-99(Fasting)) mg/dl Calcium 8.3 L (8.6-10.3) mg/dl Phosphorus 5.0 H (2.5-4.9) mg/dl Magnesium 1.8 (1.7-2.4) mg/dl 11/26/24 Range/Units 08:35 WBC 10.99 H (4.8-10.8) K/ul RBC 4.38 (4.20-5.40) M/uL Hgb 13.2 (12.0-16.0) g/dl Hct 38.6 (37.0-47.0) % MCV 88.1 (80.0-100.0) fL MCH 30.1 (25.0-34.0) pg MCHC 34.2 (32.0-36.0) g/dL RDW Std Deviation 43.4 (36.4-46.3) fL RDW Coeff of Viky 13.4 (11.5-14.5) % Plt Count 283 (130-400) K/uL MPV 9.0 L (9.4-12.4) fL Immature Gran % (Auto) % Neut % (Auto) % Lymph % (Auto) % Dukes % (Auto) % Eos % (Auto) % Baso % (Auto) % Neut # (Auto) (1.40-6.50) K/uL Lymph # (Auto) (1.20-3.40) K/uL Dukes # (Auto) (0.11-0.59) K/uL Eos # (Auto) (0.00-0.50) K/uL Baso # (Auto) (0.00-0.20) K/uL Immature Gran # (Auto) (0.01-0.20) K/uL PT (9.0-12.0) Seconds INR (0.9-1.1) APTT (21-31) Seconds PTT Ratio Heparin Anti-Xa, Unfract Sodium 135 L (136-145) mmol/L Potassium 4.0 (3.5-5.1) mmol/L Chloride 100 (98-107) mmol/L Carbon Dioxide 27 (21-32) mmol/L Anion Gap 8 (3-11) BUN 13 (6-23) mg/dl Creatinine 0.72 (0.6-1.2) mg/dl Est Cr Clr Drug Dosing 65.7 ml/min eGFR 89.33 BUN/Creatinine Ratio 18.1 (10-20) Glucose 100 H (70-99(Fasting)) mg/dl Calcium 8.2 L (8.6-10.3) mg/dl Phosphorus 5.0 H (2.5-4.9) mg/dl Magnesium 1.7 (1.7-2.4) mg/dl Medications Administered Current Inpatient Medications Acetaminophen (Acetaminophen 325 Mg Tab) 650 mg PO Q4H PRN PRN Reason: Pain or Fever Stop: 12/25/24 16:34 Last Admin: 11/26/24 22:02 Dose: 650 mg Hydrocodone Bitart/Acetaminophen (Hydrocodone/Acetamophen 5/325mg Tab) 1 tab PO QID PRN PRN Reason: Pain Stop: 12/09/24 20:39 Baclofen (Baclofen 20 Mg Tab) 20 mg PO BID [facility] Stop: 12/26/24 08:59 Last Admin: 11/27/24 07:44 Dose: 20 mg Budesonide (Budesonide 0.5 Mg/2 Ml Vial (Pulmicort)) 0.5 mg NEB BIDR [facility] Stop: 12/25/24 18:59 Last Admin: 11/27/24 07:16 Dose: 0.5 mg Docusate Sodium (Docusate Sodium 100 Mg Cap) 100 mg PO BID PRN PRN Reason: Constipation Stop: 12/25/24 23:27 Last Admin: 11/27/24 07:42 Dose: 100 mg Famotidine (Famotidine 20 Mg Tab) 20 mg PO BID [facility] Stop: 12/26/24 08:59 Last Admin: 11/27/24 07:43 Dose: 20 mg Formoterol Fumarate (Formoterol 20 Mcg/2 Ml Vial) 20 mcg INH BIDR [facility] Stop: 12/25/24 18:59 Last Admin: 11/27/24 07:16 Dose: 20 mcg Guaifenesin (Guaifenesin 600 Mg Tabcr) 600 mg PO BID PRN PRN Reason: chest congestion Stop: 12/25/24 23:27 Last Admin: 11/26/24 05:31 Dose: 600 mg Hydromorphone HCl (Hydromorphone Inj 0.5 Mg/0.5 Ml Syr) 1 mg IV Q4H PRN PRN Reason: MODERATE TO SEVERE PAIN Stop: 12/09/24 17:12 Last Admin: 11/26/24 22:24 Dose: 1 mg Heparin Sodium/Dextrose (Heparin Sodium/Dextrose) 25,000 units in 500 mls @ 21 mls/hr IV .[id number] [facility]; Protocol Stop: 12/27/24 02:14 Last Titration: 11/27/24 07:04 Dose: 1,050 units/hr, 21 mls/hr Lidocaine (Lidocaine 5% 1 Patch) 1 patch TD DAILY [facility] Stop: 12/26/24 08:59 Last Admin: 11/27/24 07:43 Dose: 1 patch Lisinopril (Lisinopril 10 Mg Tab) 10 mg PO DAILY [facility] Stop: 12/26/24 08:59 Last Admin: 11/26/24 07:40 Dose: 10 mg Miscellaneous (Remove Lidoderm Patch) 1 each N/A DAILY@2100 [facility] Stop: 12/25/24 20:59 Last Admin: 11/26/24 20:52 Dose: 1 each Miscellaneous (Synthroid - Order Awaiting Action) 1 each N/A QS [facility] Stop: 12/26/24 07:59 Last Admin: 11/27/24 07:44 Dose: Not Given Morphine Sulfate (Morphine Sulfate Cr 15 Mg Tabcr) 15 mg PO Q12 [facility] Stop: 12/10/24 00:44 Last Admin: 11/27/24 07:42 Dose: 15 mg Osimertinib (Osimertinib Mesylate) 1 each PO PM [facility] Stop: 12/26/24 23:44 Last Admin: 11/26/24 23:46 Dose: Not Given Polyethylene Glycol (Polyethylene (Miralax) 17 Gm Pack) 17 gm PO DAILY PRN PRN Reason: Constipation Stop: 12/25/24 23:27 Vitamin D (Cholecalciferol 25 Mcg (1000 Units) Tab) 25 mcg PO DAILY [facility] Stop: 12/26/24 08:59 Last Admin: 11/27/24 07:44 Dose: 25 mcg Zolpidem Tartrate (Zolpidem Tartrate 5 Mg Tab) 10 mg PO HS PRN PRN Reason: insomnia Stop: 12/25/24 23:04 Last Admin: 11/26/24 23:13 Dose: 10 mg
[2024-11-27 08:16] LABS: ANTI-Xa, UFH(UnfractionatedHep 0.21 IU/ml (0.3-0.7)
--- NOTE | 2024-11-27 08:16 | XRay Report ---
EXAM: XR chest 1V portable CLINICAL HISTORY: Follow-up TECHNIQUE: An X-ray image of the chest is obtained in AP projection. COMPARISON: 11/25/2024 FINDINGS: Pulmonary Parenchyma: Diffuse opacities notedi n the left lung, more evident in the left lower lung zone, with obliteartion of the left costophrenic angle, could be with pleural effusion. The suspected right hilar opacity could be from a rotated film, Follow-up is needed. Right lungs are clear. No evidence of right pleural effusion or pleural thickening. Heart and Mediastinum: Heart size and shape are normal. No mediastinal widening or masses. No hilar or mediastinal lymphadenopathy. Bony Thorax: Bony thorax appears intact without fractures or deformities. Soft Tissues: Soft tissues overlying the chest wall are unremarkable. IMPRESSION: 1. Diffuse opacities noted in the left lung, more evident in the left lower lung zone, could be infection, with obliteration of the left costophrenic angle, denoting pleural effusion. there is a regression regarding the amount of left pleural effusion in comparison to the prior scan. 2. The suspected right hilar opacity could be from a rotated film, Follow-up is needed. Electronically signed by Leif Sweeney 11-27-2024 08:16 AM
--- NOTE | 2024-11-27 12:58 | Pulmonology Progress Note ---
Date of Service November 27, 2024 Assessment & Plan (1) Pleural effusion: (2) Small cell lung cancer, left upper lobe: (3) SOB (shortness of breath): (4) Sleep apnea: (5) Chronic obstructive pulmonary disease: Plan CT chest 11/25/2024 personally reviewed: Large left-sided pleural effusion with compressive atelectasis of whole left lower lobe Interlobular thickening in the left upper lobe Mediastinal shift to the right There is mediastinal as well as hilar lymphadenopathy -- Pleural effusion Large left-sided Respiratory BioFire negative for everything S/p pigtail catheter placement 11/25/2025, sanguinous exudative fluid -- Acute DVT Diagnosed 11/26/2024, left posterior tibial vein Patient will need lifelong anticoagulation given the history of cancer -- History of metastatic squamous cell carcinoma Diagnosed April 2024 As per the patient latest PET/CT shows worsening of the findings Had MRI of the brain a month ago which did not show any metastasis as per the patient On osimertinib --COPD with emphysema Does not seem to be in exacerbation Only on albuterol and DuoNebs at home Would recommend BrezTri or Trelegy on discharge -- JOLANTA On BiPAP 11/01 at home Plan: Chest x-ray from today does not show any pneumothorax, there was no air leak while the patient was on suction, suction was taken off Will take the chest tube out today Follow-up cytology from the pleural fluid Overall prognosis is poor No further recommendation from pulmonary perspective, will sign off Please call directly with any questions Please note the above document was generated using voice recognition software. It may contain grammatical, syntax or spelling errors.Any formal questions or concerns about the content, text or information contained within the body of this dictation should be directly addressed to the provider for clarification. Admission and Anticipated Discharge Date Admission Date: November 25, 2024 Subjective Patient seen and examined at bedside. No acute distress Patient does complain of some discomfort at the site of the chest tube. Stated that the shortness of breath is significantly improved. No nausea or vomiting Fair appetite Patient was emotional during this encounter, emotional support was given to the patient Review of Systems 2 Review of Systems: All systems reviewed & are unremarkable except as noted in Subjective Physical Exam 2 Physical Exam: Constitutional: No acute distress HEENT: EOMI, PERRLA Respiratory system: Decreased air entry on the left side, no wheeze, no rhonchi, positive crackles bilaterally CVS: S1-S2 positive, no murmurs or gallops, accentuated P2 Abdomen: Soft, nontender, nondistended, positive bowel sounds x4 Extremities: +2 pulses bilaterally radialis/ dorsalis pedis, no cyanosis, +1 pitting edema bilateral lower extremity, +2 left lower extremity edema Neuro: Awake alert oriented x3 Psych: Normal mood and affect G/U: No Pope Skin: no rashes, warm and dry Lymphatic: no cervical or axillary lymphadenopathy Results & Data Results & Data Vital Signs (Past 12 Hours) Vital Signs Temp Pulse Pulse Resp BP BP Pulse Ox 11/27/24 11:14 36.8 C 84 16 119/82 93 11/27/24 08:23 11/27/24 08:18 73 11/27/24 07:47 36.6 C 78 16 118/68 94 11/27/24 07:20 76 20 92 11/27/24 02:59 36.7 C 79 18 114/65 93 O2 Del Method O2 Flow Rate 11/27/24 11:14 Nasal Cannula 2 11/27/24 08:23 Nasal Cannula 2 11/27/24 08:18 11/27/24 07:47 Nasal Cannula 1.5 11/27/24 07:20 Nasal Cannula 2 11/27/24 02:59 Nasal Cannula 2 Laboratory Results 11/27/24 02:09 11/27/24 02:04 PG Care Time/CCT Total # of Minutes Spent Total Time Spent with Patient: Total time spent is greater than 50% in coordination of care (as documented) at patient's floor/unit and/or counseling patient: Coding Level of Care Code 79483 SUB INP/OBS CARE 2/35MIN Diagnoses Pleural effusion J90 Small cell lung cancer, left upper lobe C34.12 SOB (shortness of breath) R06.02 Sleep apnea G47.30 Chronic obstructive pulmonary disease J44.9
--- NOTE | 2024-11-27 13:00 | Procedure Note ---
Procedure Note Date of Service November 27, 2024 Procedure: Pigtail chest tube removal Ophthalmology Assistant: Dr. Carlos Davis Indication: Resolving left-sided pleural effusion Consent: Verbal consent was obtained from the patient Anesthesia: None Procedure: The dressing of the pigtail catheter was removed Under aseptic precautions the pigtail catheter was unwound. On patient's exhalation the catheter was removed, it was found to be intact. Vaseline gauze was applied which was covered by 4 x 4 and silk tape dressing on top The patient tolerated the procedure without obvious complication Complications: None Blood loss: None [facility] [place] Procedure Codes (Charges) Pulmonary/Thoracic Procedure 1: Pulmonary and Thoracic: 32724 Remove lung catheter Coding CPT Codes Pulmonary/Thoracic - Pulmonary and Thoracic: 17381 Remove lung catheter ([id number]) Additional Codes Date of Service ([facility].SURGERY)
[2024-11-27] MEDS: POLYETHYLENE (MIRALAX) 17 GM PACK PO ONE (13:36)
[2024-11-27] MEDS: MoRPHine SULFATE CR 15 MG TABCR PO SCH (13:58)
[2024-11-27] MEDS: LORazepam 2 MG/1 ML VIAL IV PRN (13:58)
[2024-11-27] MEDS: ACYCLOVIR 400 MG TAB PO ONE (14:14)
[2024-11-27 15:12] LABS: ANTI-Xa, UFH(UnfractionatedHep 0.25 IU/ml (0.3-0.7)
[2024-11-27] MEDS: WARFARIN SOD 4 MG TAB PO SCH (18:28)
[2024-11-27] MEDS: GLYCERIN ADULT 12 SUPP/BOX SUPP PR ONE (18:32)
[2024-11-27] MEDS: DOCUSATE SODIUM/SENNA 50/8.6MG TAB PO SCH (20:55)
[2024-11-27 21:55] LABS: ANTI-Xa, UFH(UnfractionatedHep 0.24 IU/ml (0.3-0.7)
[2024-11-28 04:10] LABS: Hematocrit (blood only) 37.4 % (37.0-47.0); Hemoglobin 12.7 g/dl (12.0-16.0); Mean Corpuscular Hemoglobin 30.2 pg (25.0-34.0); Mean Corpuscular Volume 88.8 fL (80.0-100.0); Mean Platelet Volume 9.3 fL (9.4-12.4); Platelet Count 298 K/uL (130-400); RDW Coefficient of Variation 13.2 % (11.5-14.5); RDW Standard Deviation 43.3 fL (36.4-46.3); Red Blood Count 4.21 M/uL (4.20-5.40); White Blood Count 8.36 K/ul (4.8-10.8)
[2024-11-28 04:28] LABS: ANTI-Xa, UFH(UnfractionatedHep 0.36 IU/ml (0.3-0.7)
[2024-11-28 04:31] LABS: INR 1.3 (0.9-1.1); Prothrombin Time 13.5 Seconds (9.0-12.0)
[2024-11-28 04:52] LABS: BUN Creatinine Ratio 17.9 (10-20); Calcium 8.3 mg/dl (8.6-10.3); Creatinine Clr Calc Pharmacy 87.3 ml/min; Magnesium 1.8 mg/dl (1.7-2.4); Phosphorus 3.7 mg/dl (2.5-4.9); Potassium 3.9 mmol/L (3.5-5.1)
[2024-11-28] MEDS: LEVOTHYROXINE SODIUM 100 MCG TABLET PO SCH (05:37)
[2024-11-28] MEDS: HYDROmorphone INJ 0.5 MG/0.5 ML SYR IV PRN (08:48)
[2024-11-28] MEDS: POLYETHYLENE (MIRALAX) 17 GM PACK PO PRN (08:49)
--- NOTE | 2024-11-28 09:32 | Pulmonology Progress Note ---
Date of Service November 28, 2024 Assessment & Plan (1) Pleural effusion: (2) Small cell lung cancer, left upper lobe: (3) SOB (shortness of breath): (4) Sleep apnea: (5) Chronic obstructive pulmonary disease: Plan CT chest 11/25/2024 personally reviewed: Large left-sided pleural effusion with compressive atelectasis of whole left lower lobe Interlobular thickening in the left upper lobe Mediastinal shift to the right There is mediastinal as well as hilar lymphadenopathy -- Pleural effusion Large left-sided Respiratory BioFire negative for everything S/p pigtail catheter placement 11/25/2025, sanguinous exudative fluid Cytology of pleural fluid was positive for metastatic adenocarcinoma of the lung -- Acute DVT Diagnosed 11/26/2024, left posterior tibial vein Patient will need lifelong anticoagulation given the history of cancer -- History of metastatic squamous cell carcinoma Diagnosed April 2024 As per the patient latest PET/CT shows worsening of the findings Had MRI of the brain a month ago which did not show any metastasis as per the patient On osimertinib --COPD with emphysema Does not seem to be in exacerbation Only on albuterol and DuoNebs at home Would recommend BrezTri or Trelegy on discharge -- JOLANTA On BiPAP 11/01 at home Plan: Chest x-ray from today does not show any pneumothorax, there was no air leak while the patient was on suction, suction was taken off Will take the chest tube out today Cytology from the pleural fluid was positive for metastatic adenocarcinoma of the lung Patient seen chart carries a diagnosis of squamous cell carcinoma, we will try to get the records from [facility] to see what she was being treated for and if there is a need will make amendments to her chart here Overall prognosis is poor Case discussed with primary team No further recommendation from pulmonary perspective, will sign off Please call directly with any questions Please note the above document was generated using voice recognition software. It may contain grammatical, syntax or spelling errors.Any formal questions or concerns about the content, text or information contained within the body of this dictation should be directly addressed to the provider for clarification. Admission and Anticipated Discharge Date Admission Date: November 25, 2024 Subjective Patient seen and examined at bedside. No acute distress, no adverse events overnight She is complaining of pain in the left ankle. No redness around the ankle Saturation while she was 97 on 2 L, went down to 1 L Denied any significant chest pain She does have chronic low back pain which is causing her issues No nausea or vomiting Fair appetite Review of Systems 2 Review of Systems: All systems reviewed & are unremarkable except as noted in Subjective Physical Exam 2 Physical Exam: Constitutional: No acute distress HEENT: EOMI, PERRLA Respiratory system: Decreased air entry on the left side, no wheeze, no rhonchi, positive crackles bilaterally CVS: S1-S2 positive, no murmurs or gallops, accentuated P2 Abdomen: Soft, nontender, nondistended, positive bowel sounds x4 Extremities: +2 pulses bilaterally radialis/ dorsalis pedis, no cyanosis, +1 pitting edema bilateral lower extremity, +2 left lower extremity edema, left ankle pain, no rubor, no calor, positive dolor Neuro: Awake alert oriented x3 Psych: Normal mood and affect G/U: No Pope Skin: no rashes, warm and dry Lymphatic: no cervical or axillary lymphadenopathy Results & Data Results & Data Vital Signs (Past 12 Hours) Vital Signs Temp Pulse Pulse Resp BP Pulse Ox O2 Del Method 11/28/24 08:27 37.2 C 72 18 112/69 100 Nasal Cannula 11/28/24 07:58 86 20 93 Nasal Cannula 11/28/24 03:17 37.1 C 86 18 114/78 93 Nasal Cannula 11/28/24 00:33 88 11/27/24 22:24 37.4 C 84 18 111/73 94 Nasal Cannula O2 Flow Rate 11/28/24 08:27 3 11/28/24 07:58 2 11/28/24 03:17 2 11/28/24 00:33 11/27/24 22:24 1 Laboratory Results 11/28/24 03:46 11/28/24 03:46 PG Care Time/CCT Total # of Minutes Spent Total Time Spent with Patient: Total time spent is greater than 50% in coordination of care (as documented) at patient's floor/unit and/or counseling patient: Coding Level of Care Code 30815 SUB INP/OBS CARE 2/35MIN Diagnoses Pleural effusion J90 Small cell lung cancer, left upper lobe C34.12 SOB (shortness of breath) R06.02 Sleep apnea G47.30 Chronic obstructive pulmonary disease J44.9
--- NOTE | 2024-11-28 11:19 | Palliative Care Consultation ---
Date of Consultation November 28, 2024 Assessment & Plan (1) Cancer related pain: Increasing cancer pain without access to breakthrough medication as ordered in the outpatient realm due to pharmacy reluctance to fill the prescription. We will increase MS Contin to 15 mg every 8 hours with hold parameters of holding for somnolence or respiratory rate less than 14 breaths/min. Will add Dilaudid 1.2 mg IV every 4 hours as needed for breakthrough pain and prior to procedures/interventions. (2) Opioid-induced constipation: KUB results noted. There may be a possible ileus. This test will be repeated to reassess progression or improvement. In the meantime she is receiving daily MiraLAX. I have added senna S2 tabs p.o. twice daily in addition to the MiraLAX. An enema may also be needed and was discussed today with patient who would prefer to try the tablets and the MiraLAX first. (3) Dyspnea and respiratory abnormalities: (4) Anxiety associated with cancer diagnosis: (5) Advanced care planning/counseling discussion: I met with Myra at the bedside [id number] for approximately 55 minutes. She shares that she had a reasonably good holiday and enjoyed being with her children and even initiated some conversations about the progression of her i llness and that time may be looking more limited. She notes that she did not delve into a deeper discussion but feels that with the changes she is experiencing and the complications of this admission, that it may be time to have more of a conversation with them. She admits to feeling fearful of her mortality and the end-of-life process. She is mostly afraid of suffering especially this feeling of suffocating to . She is ready for hospice when that is appropriate but for now wishes to continue on the Tagrisso for cancer treatment. With her permission, I will update Dr. Simmons at [facility] oncology and await his input with regards to whether or not continuing Tagrisso at this point would be helpful or detrimental to her. We are hopeful that the pigtail catheter may be removed today. I advised her that we will optimize her pain management while she was here and see how she does with the increased dosing of the MS Contin as well as adding breakthrough Dilaudid. Also encouraged her to increase hydration and ambulate as tolerated. She will likely require some visiting nurse services at home after this admission. She is not interested in alf or rehab admission. She has strong family support as well as an excellent social network of support with her close friends. Several of her friends are in caregiving professions and one of her closest friends is a retired hospice bereavement coordinator. (6) Palliative care by specialist: History of Present Illness Reason for Consultation: ongoing care Attending Physician: Aureliano Sumner MD History of Present Illness Myra is known to me from outpatient palliative medicine clinic where she is followed for ongoing cancer pain and symptom management. She was most recently seen 11/06/2024 with a report of some mild and persisting dyspnea as well as cancer related pain. She had up until this time been managed fairly well with MS Contin 15 mg every 12 hours and as needed Dilaudid 4 mg every 4 hours as needed for breakthrough pain and shortness of breath. Her diagnosis is primary lung squamous cell carcinoma. She is followed by Dr. Simmons at [facility] oncology. She has been on Tagrisso for her lung cancer and had been doing fairly well with some improvement in her cough, mild weight loss, overall reasonable appetite. Performance status remains a 1. Her brain MRI done 10/15/2024 did not demonstrate any evidence of metastatic brain illness. Pulmonary medicine consult was noted and appreciated. A pigtail catheter was placed 11/25/2025 with sanguinous exudative fluid noted. Her respiratory bio fire was negative. She presented to the hospital with acutely worsening dyspnea and was found to have a large effusion. She has since had a chest tube placed to help that drain. She also then developed left lower extremity edema and ultrasound revealed a DVT for which she is currently under treatment. On day of admission, 11/25/2024, CTA of the chest revealed no pulmonary emboli. No thoracic aortic dissection. No pericardial effusion. A large malignant left pleural effusion with significantly increase in size since the CAT scan of 10/14/2024. There was no pneumothorax. There was a small right pleural effusion. Extensive left lung airspace opacity was noted with volume loss. This is progressed since prior exam. The previously described left apical mass is obscured on this exam. Pleural metastatic disease within the left hemithorax has mildly progressed. Thoracic lymphadenopathy has also mildly progressed. She has a left supraclavicular lymph node on image 175 measuring 2 x 1.4 cm which was prev iously noted to be 1.5 x 1.4 cm. A left axillary lymph node now measures 2.8 x 1.9 cm and this was partially imaged on a prior exam. There is mediastinal and hilar adenopathy which has progressed and several small right lower lobe pulmonary nodules that are up to 5 mm in size remain unchanged. There is some mild groundglass opacities within the right lung. She is noted to be status post a T12 kyphoplasty. Visualized portions of the upper abdomen remain unremarkable. She also complained of feeling like there was something stuck in her throat with some issues swallowing. Neck CT without contrast was done 11/26/2024 and revealed visualized portions of intracranial contents are unremarkable. Postoperative findings consistent with a C4 C7 anterior discectomy and fusion noted. Postoperative appearance similar to the CT done November 04, 2020. No suspicious lesions within the cervical spine. No cervical spine fractures. Evaluation of the neck is compromised on this unenhanced exam. There are no fluid collections identified. No prevertebral edema. Glottis is closed. There was some apparent medialization of the right vocal cord likely due to the close glottis. Multiple enlarged cervical and mediastinal lymph nodes again noted as revealed on the recent chest CT. There are trace left apical pleural gas. Left apical mass is again noted with left pleural implants and a nodular interlobular septal thickening within the left upper lobe. Myra reports increasing cancer related pain and the MS Contin 15 mg every 12 hours has not been providing lasting relief. She has not been able to obtain the Dilaudid tablets for as needed breakthrough use because the pharmacy evidently told her "it would be too much medicine to give you, you are already on the long-acting morphine." It should be noted that our office was not notified of this at any time and the pharmacy did not call us to express any concerns. Therefore she has been without medication for breakthrough symptoms including pain and dyspnea. She also notes that she has had trouble with constipation for the past few days maybe up to a week leading to this admission. She has been started on some MiraLAX this admission. KUB done 11/26/2024 demonstrates gas distended colon in the left abdomen possibly an ileus. This is being followed closely. Allergies Allergy/AdvReac Type Severity Reaction Status Date / Time losartan Allergy Severe SWELLING Verified 11/25/24 17:40 OF FACE, LIPS & TONGUE Penicillins Allergy Severe SWELLING Verified 11/25/24 17:40 OF FACE, LIPS & TONGUE fentanyl Allergy Intermediate itching Verified 11/25/24 17:40 oxycodone Allergy Intermediate ITCHING Verified 11/25/24 17:40 ALL OVER tramadol AdvReac Severe Hallucinati Verified 11/25/24 17:40 ons Sulfa (Sulfonamide AdvReac Intermediate URNIARY Verified 11/25/24 17:40 Antibiotics) FREQUENCY sulfamethoxazole AdvReac Intermediate URNIARY Verified 11/25/24 17:40 FREQUENCY topiramate AdvReac Intermediate Blurry Verified 11/25/24 17:40 Vision metronidazole AdvReac Mild STOMACH Verified 11/25/24 17:40 PAIN trimethoprim AdvReac Mild URINARY Verified 11/25/24 17:40 FREQUENCY Home Medications Medication Instructions Recorded Confirmed Type acyclovir 400 mg tablet 400 mg PO TID PRN Cold Sore(s) 08/22/18 11/25/24 History albuterol sulfate 90 mcg/actuation 2 puff inhalation Q4H PRN Wheezing 08/22/18 11/25/24 History aerosol inhaler (Ventolin HFA) levothyroxine 100 mcg tablet 100 mcg PO DAILYBB 08/22/18 11/25/24 History alirocumab 75 mg/mL subcutaneous 75 mg subcut Q14D 09/19/23 11/25/24 History pen injector (Praluent Pen) aspirin 81 mg tablet,delayed 81 mg PO DAILY 09/19/23 11/25/24 History release cholecalciferol (vitamin D3) 25 25 mcg PO DAILY 09/19/23 11/25/24 History mcg (1,000 unit) capsule famotidine 20 mg tablet 20 mg PO BID 09/19/23 11/25/24 History ipratropium 0.5 mg-albuterol 3 mg 3 ml inhalation Q6H PRN Wheezing 09/19/23 11/25/24 History (2.5 mg base)/3 mL nebulization soln lorazepam 0.5 mg tablet (Ativan) 0.5 mg PO Q6H PRN anxiety, 09/08/24 11/25/24 History insomnia, nausea from cancer osimertinib 80 mg tablet (Tagrisso) 80 mg PO PM 09/08/24 11/25/24 History zolpidem 10 mg tablet 10 mg PO HS 09/08/24 11/25/24 History lidocaine 4 % topical patch 1 patch topical DAILY PRN pain #30 09/10/24 11/25/24 Rx ea baclofen 10 mg tablet 20 mg PO BID 09/11/24 11/25/24 History prochlorperazine maleate 10 mg 10 mg PO DAILY PRN Nausea And 09/11/24 11/25/24 History tablet Vomiting lisinopril 20 mg tablet 10 mg PO DAILY 09/25/24 11/25/24 History hydromorphone 4 mg tablet 4 mg PO Q4H PRN pain 1 month #90 11/06/24 11/25/24 Rx (Dilaudid) tabs docusate sodium 100 mg capsule 100 mg PO BID PRN Constipation 11/25/24 11/25/24 History guaifenesin 600 mg tablet, 600 mg PO BID PRN chest congestion 11/25/24 11/25/24 History extended release 12 hr (Mucinex) morphine 15 mg tablet,extended 15 - 30 mg PO Q12H cancer pain and 11/25/24 11/25/24 History release (MS Contin) dyspnea ondansetron HCl 8 mg tablet 8 mg PO Q6H PRN Nausea And Vomiting 11/25/24 11/25/24 History polyethylene glycol 3350 17 gram 17 g PO DAILY PRN Constipation 11/25/24 11/25/24 History oral powder packet (Miralax) Patient History Medical History Incomplete rotator cuff tear or rupture of left shoulder, not specified as traumatic Encounter for pre-operative examination Intractable back pain Compression fracture of T12 vertebra Prediabetes RECENT NEW SCRIPT FOR METFORMIN Hx of Clostridium difficile infection APPROX 5 YRS AGO Hx of discitis treated at [facility] (2019) Hx of deep venous thrombosis ~2019 Pulmonary embolism hx of 2006 Pseudogout Hypothyroidism Chronic back pain Osteoarthritis Abdominal hernia no surgery Peripheral neuropathy Migraine hx Chronic obstructive pulmonary disease mild Sleep apnea NO MACHINE Surgical History History of right cataract surgery SEP 2020 History of anesthesia reaction EXTREMELY SLOW TO WAKE UP (COLON RESECTION) History of dilatation and curettage History of total abdominal hysterectomy and bilateral salpingo-oophorectomy History of carpal tunnel release RT History of bunionectomy RT FOOT History of appendectomy History of esophagogastroduodenoscopy (EGD) History of colonoscopy History of tooth extraction History of tonsillectomy History of adenoidectomy S/P ablation of atrial fibrillation ~2014 Family History Mother Family history of esophageal cancer Hearing loss Father Hearing loss Brother Hearing loss Other Cancer Gallbladder disease Heart disease Hypertension Lung disease No family history of adverse response to anesthesia No family history of bleeding disorder Stroke Social History Smoking Status: Former smoker Tobacco Type: Cigarettes Second Hand Exposure: No; Do You Dip or Chew Tobacco: No; Hx Alcohol Use: No Hx Substance Use: No Preferred Language: Yoruba Communication Ability: Effective Director Digital Strategy Required: No Beliefs That Will Affect Care: None Current Living Situation: Alone current occupational status: retired Feels Safe at Home: Yes Assistive Devices: None Review of Systems Review of Systems: All systems reviewed & are unremarkable except as noted in Subjective Physical Exam Physical Exam: + Distress: Anxious, intermittently tear ful, complexion pale NCAT PERRLA, EOMIs No stridor dentition intact Resp effort mildly increased, + conversational dyspnea, + decreased air entry left more than right, no particular wheeze, + bilateral crackles left greater than right. S1-S2 noted, no gross evidence of JVP. No overt murmur. Abdomen softly distended, mildly tender, bowel sounds diminished, no guarding, no rebound. Mild weakness symmetrically but strength overall intact Left lower extremity edema, no calf tenderness skin pale, warm AAOx3, following commands Results & Data Vital Signs (Past 12 Hours) Vital Signs Temp Pulse Pulse Resp BP Pulse Ox O2 Del Method 11/28/24 08:27 37.2 C 72 18 112/69 100 Nasal Cannula 11/28/24 07:58 86 20 93 Nasal Cannula 11/28/24 03:17 37.1 C 86 18 114/78 93 Nasal Cannula 11/28/24 00:33 88 11/27/24 22:24 37.4 C 84 18 111/73 94 Nasal Cannula O2 Flow Rate 11/28/24 08:27 3 11/28/24 07:58 2 11/28/24 03:17 2 11/28/24 00:33 11/27/24 22:24 1 Laboratory Results 0111/27/24 11/27/24 Range/Units 03:46 21:21 14:20 WBC 8.36 (4.8-10.8) K/ul RBC 4.21 (4.20-5.40) M/uL Hgb 12.7 (12.0-16.0) g/dl POC Hgb (12.0-16.0) g/dl Hct 37.4 (37.0-47.0) % POC Hct (37-47) % MCV 88.8 (80.0-100.0) fL MCH 30.2 (25.0-34.0) pg MCHC 34.0 (32.0-36.0) g/dL RDW Std Deviation 43.3 (36.4-46.3) fL RDW Coeff of Viky 13.2 (11.5-14.5) % Plt Count 298 (130-400) K/uL MPV 9.3 L (9.4-12.4) fL Immature Gran % (Auto) % Neut % (Auto) % Lymph % (Auto) % [place] % (Auto) % Eos % (Auto) % Baso % (Auto) % Neut # (Auto) (1.40-6.50) K/uL Lymph # (Auto) (1.20-3.40) K/uL [place] # (Auto) (0.11-0.59) K/uL Eos # (Auto) (0.00-0.50) K/uL Baso # (Auto) (0.00-0.20) K/uL Immature Gran # (Auto) (0.01-0.20) K/uL PT 13.5 H (9.0-12.0) Seconds INR 1.3 H (0.9-1.1) APTT (21-31) Seconds PTT Ratio Heparin Anti-Xa, Unfract 0.36 0.24 L 0.25 L (0.3-0.7) IU/ml POC Sodium (135-144) mmol/L Sodium 134 L (136-145) mmol/L POC Potassium (3.3-5.0) mmol/L Potassium 3.9 (3.5-5.1) mmol/L POC Chloride (101-112) mmol/L Chloride 101 (98-107) mmol/L Carbon Dioxide 27 (21-32) mmol/L POC Total CO2 (24-31) mmol/L Anion Gap 6 (3-11) POC Anion Gap (16-25) mmol/L POC BUN (7-18) mg/dl BUN 10 (6-23) mg/dl Creatinine 0.56 L (0.6-1.2) mg/dl POC Creatinine (0.6-1.3) mg/dl Est Cr Clr Drug Dosing 87.3 eGFR 97.51 BUN/Creatinine Ratio 17.9 (10-20) Glucose 106 H (70-99(Fasting)) mg/dl POC Glucose (other) (70-99) mg/dl Calcium 8.3 L (8.6-10.3) mg/dl POC Ioniz Calcium Reginaldo (1.12-1.32) mmol/l Phosphorus 3.7 D (2.5-4.9) mg/dl Magnesium 1.8 (1.7-2.4) mg/dl Total Bilirubin (0.2-1.0) mg/dl AST (13-39) U/L ALT (7-52) U/L Alkaline Phosphatase (34-104) U/L Lactate Dehydrogenase (86-244) U/L Troponin I High Sens (0-14) pg/ml Total Protein (6.0-8.3) gm/dl Albumin (3.4-5.0) gm/dl Globulin (2.5-4.0) gm/dl Albumin/Globulin Ratio (0.9-2) Urine Color Urine Appearance (Clear) Urine pH (4.5-7.5) Ur Specific [place] (1.000-1.030) Urine Protein (Negative) Urine Glucose (UA) (Negative) Urine Ketones (Negative) Urine Blood (Negative) Urine Nitrite (Negative) Urine Bilirubin (Negative) Urine Urobilinogen (Negative) Ur Leukocyte Esterase (Negative) Urine WBC (Auto) (0-5) /hpf Urine RBC (Auto) (0-2) /hpf U Hyaline Cast (Auto) (0-2) /lpf U Epithel Cells (Auto) (0-2) /hpf Urine Bacteria (Auto) (None Seen) Fluid Neutrophils % % Fluid Lymphocytes % % Fluid Eosinophils % % Fluid Meso/Macro/Radford % % Fluid Comment Pleural Fluid Source Pleural Color Pleural Appearance Pleural pH (7.3-7.4) Pleural WBC (Auto) /uL Pleural RBC (Auto) /uL Pleural Total Protein gm/dl Pleural LDH U/L Pleural Glucose mg/dl Pleural Amylase U/L Adenovirus (PCR) (NotDetected) B. pertussis DNA (PCR) (NotDetected) B.parapertussis DNA PCR (NotDetected) C. pneumoniae DNA (PCR) (NotDetected) Coronavirus OC43 (PCR) (NotDetected) Coronavirus HKU1 (PCR) (NotDetected) Coronavirus 229E (PCR) (NotDetected) SARS-CoV-2 (PCR) (NotDetected) Coronavirus NL63 (PCR) (NotDetected) Human Metapneumovir PCR (NotDetected) Influenza Type A (PCR) (NotDetected) Influenza Type B (PCR) (NotDetected) M. pneumoniae (PCR) (NotDetected) Parainfluenza 1 (PCR) (NotDetected) Parainfluenza 2 (PCR) (NotDetected) Parainfluenza 3 (PCR) (NotDetected) Parainfluenza 4 (PCR) (NotDetected) RSV (PCR) (NotDetected) Entero/Rhino (PCR) (NotDetected) 11/27/24 11/27/24 11/27/24 Range/Units 06:26 02:09 02:04 WBC 11.52 H (4.8-10.8) K/ul RBC 4.30 (4.20-5.40) M/uL Hgb 13.0 (12.0-16.0) g/dl POC Hgb (12.0-16.0) g/dl Hct 38.5 (37.0-47.0) % POC Hct (37-47) % MCV 89.5 (80.0-100.0) fL MCH 30.2 (25.0-34.0) pg MCHC 33.8 (32.0-36.0) g/dL RDW Std Deviation 44.1 (36.4-46.3) fL RDW Coeff of Viky 13.4 (11.5-14.5) % Plt Count 289 (130-400) K/uL MPV 9.4 (9.4-12.4) fL Immature Gran % (Auto) 0.2 % Neut % (Auto) 68.2 % Lymph % (Auto) 12.0 % Radford % (Auto) 9.6 % Eos % (Auto) 9.6 % Baso % (Auto) 0.4 % Neut # (Auto) 7.85 H (1.40-6.50) K/uL Lymph # (Auto) 1.38 (1.20-3.40) K/uL [place] # (Auto) 1.11 H (0.11-0.59) K/uL Eos # (Auto) 1.11 H (0.00-0.50) K/uL Baso # (Auto) 0.05 (0.00-0.20) K/uL Immature Gran # (Auto) 0.02 (0.01-0.20) K/uL PT 14.0 H (9.0-12.0) Seconds INR 1.3 H (0.9-1.1) APTT 31 (21-31) Seconds PTT Ratio 1.2 Heparin Anti-Xa, Unfract 0.21 L (0.3-0.7) IU/ml POC Sodium (135-144) mmol/L Sodium 133 L (136-145) mmol/L POC Potassium (3.3-5.0) mmol/L Potassium 4.5 (3.5-5.1) mmol/L POC Chloride (101-112) mmol/L Chloride 99 (98-107) mmol/L Carbon Dioxide 27 (21-32) mmol/L POC Total CO2 (24-31) mmol/L Anion Gap 7 (3-11) POC Anion Gap (16-25) mmol/L POC BUN (7-18) mg/dl BUN 13 (6-23) mg/dl Creatinine 0.64 (0.6-1.2) mg/dl POC Creatinine (0.6-1.3) mg/dl Est Cr Clr Drug Dosing 73.9 eGFR 94.42 BUN/Creatinine Ratio 20.3 H (10-20) Glucose 112 H (70-99(Fasting)) mg/dl POC Glucose (other) (70-99) mg/dl Calcium 8.3 L (8.6-10.3) mg/dl POC Ioniz Calcium Reginaldo (1.12-1.32) mmol/l Phosphorus 5.0 H (2.5-4.9) mg/dl Magnesium 1.8 (1.7-2.4) mg/dl Total Bilirubin (0.2-1.0) mg/dl AST (13-39) U/L ALT (7-52) U/L Alkaline Phosphatase (34-104) U/L Lactate Dehydrogenase (86-244) U/L Troponin I High Sens (0-14) pg/ml Total Protein (6.0-8.3) gm/dl Albumin (3.4-5.0) gm/dl Globulin (2.5-4.0) gm/dl Albumin/Globulin Ratio (0.9-2) Urine Color Urine Appearance (Clear) Urine pH (4.5-7.5) Ur Specific [place] (1.000-1.030) Urine Protein (Negative) Urine Glucose (UA) (Negative) Urine Ketones (Negative) Urine Blood (Negative) Urine Nitrite (Negative) Urine Bilirubin (Negative) Urine Urobilinogen (Negative) Ur Leukocyte Esterase (Negative) Urine WBC (Auto) (0-5) /hpf Urine RBC (Auto) (0-2) /hpf U Hyaline Cast (Auto) (0-2) /lpf U Epithel Cells (Auto) (0-2) /hpf Urine Bacteria (Auto) (None Seen) Fluid Neutrophils % % Fluid Lymphocytes % % Fluid Eosinophils % % Fluid Meso/Macro/Radford % % Fluid Comment Pleural Fluid Source Pleural Color Pleural Appearance Pleural pH (7.3-7.4) Pleural WBC (Auto) /uL Pleural RBC (Auto) /uL Pleural Total Protein gm/dl Pleural LDH U/L Pleural Glucose mg/dl Pleural Amylase U/L Adenovirus (PCR) (NotDetected) B. pertussis DNA (PCR) (NotDetected) B.parapertussis DNA PCR (NotDetected) C. pneumoniae DNA (PCR) (NotDetected) Coronavirus OC43 (PCR) (NotDetected) Coronavirus HKU1 (PCR) (NotDetected) Coronavirus 229E (PCR) (NotDetected) SARS-CoV-2 (PCR) (NotDetected) Coronavirus NL63 (PCR) (NotDetected) Human Metapneumovir PCR (NotDetected) Influenza Type A (PCR) (NotDetected) Influenza Type B (PCR) (NotDetected) M. pneumoniae (PCR) (NotDetected) Parainfluenza 1 (PCR) (NotDetected) Parainfluenza 2 (PCR) (NotDetected) Parainfluenza 3 (PCR) (NotDetected) Parainfluenza 4 (PCR) (NotDetected) RSV (PCR) (NotDetected) Entero/Rhino (PCR) (NotDetected) 11/26/24 11/25/24 11/25/24 Range/Units 08:35 20:11 17:34 WBC 10.99 H (4.8-10.8) K/ul RBC 4.38 (4.20-5.40) M/uL Hgb 13.2 (12.0-16.0) g/dl POC Hgb (12.0-16.0) g/dl Hct 38.6 (37.0-47.0) % POC Hct (37-47) % MCV 88.1 (80.0-100.0) fL MCH 30.1 (25.0-34.0) pg MCHC 34.2 (32.0-36.0) g/dL RDW Std Deviation 43.4 (36.4-46.3) fL RDW Coeff of Viky 13.4 (11.5-14.5) % Plt Count 283 (130-400) K/uL MPV 9.0 L (9.4-12.4) fL Immature Gran % (Auto) % Neut % (Auto) % Lymph % (Auto) % [place] % (Auto) % Eos % (Auto) % Baso % (Auto) % Neut # (Auto) (1.40-6.50) K/uL Lymph # (Auto) (1.20-3.40) K/uL [place] # (Auto) (0.11-0.59) K/uL Eos # (Auto) (0.00-0.50) K/uL Baso # (Auto) (0.00-0.20) K/uL Immature Gran # (Auto) (0.01-0.20) K/uL PT (9.0-12.0) Seconds INR (0.9-1.1) APTT (21-31) Seconds PTT Ratio Heparin Anti-Xa, Unfract (0.3-0.7) IU/ml POC Sodium (135-144) mmol/L Sodium 135 L (136-145) mmol/L POC Potassium (3.3-5.0) mmol/L Potassium 4.0 (3.5-5.1) mmol/L POC Chloride (101-112) mmol/L Chloride 100 (98-107) mmol/L Carbon Dioxide 27 (21-32) mmol/L POC Total CO2 (24-31) mmol/L Anion Gap 8 (3-11) POC Anion Gap (16-25) mmol/L POC BUN (7-18) mg/dl BUN 13 (6-23) mg/dl Creatinine 0.72 (0.6-1.2) mg/dl POC Creatinine (0.6-1.3) mg/dl Est Cr Clr Drug Dosing 65.7 eGFR 89.33 BUN/Creatinine Ratio 18.1 (10-20) Glucose 100 H (70-99(Fasting)) mg/dl POC Glucose (other) (70-99) mg/dl Calcium 8.2 L (8.6-10.3) mg/dl POC Ioniz Calcium Reginaldo (1.12-1.32) mmol/l Phosphorus 5.0 H (2.5-4.9) mg/dl Magnesium 1.7 (1.7-2.4) mg/dl Total Bilirubin 0.5 (0.2-1.0) mg/dl AST (13-39) U/L ALT (7-52) U/L Alkaline Phosphatase (34-104) U/L Lactate Dehydrogenase 279 H (86-244) U/L Troponin I High Sens (0-14) pg/ml Total Protein 6.0 (6.0-8.3) gm/dl Albumin 3.5 (3.4-5.0) gm/dl Globulin (2.5-4.0) gm/dl Albumin/Globulin Ratio (0.9-2) Urine Color Yellow Urine Appearance Clear (Clear) Urine pH 5.0 (4.5-7.5) Ur Specific [place] > 1.045 H (1.000-1.030) Urine Protein Trace H (Negative) Urine Glucose (UA) Negative (Negative) Urine Ketones Trace H (Negative) Urine Blood Negative (Negative) Urine Nitrite Negative (Negative) Urine Bilirubin Negative (Negative) Urine Urobilinogen Negative (Negative) Ur Leukocyte Esterase Negative (Negative) Urine WBC (Auto) 0-5 (0-5) /hpf Urine RBC (Auto) 0-2 (0-2) /hpf U Hyaline Cast (Auto) 0-2 (0-2) /lpf U Epithel Cells (Auto) 0-2 (0-2) /hpf Urine Bacteria (Auto) None Seen (None Seen) Fluid Neutrophils % % Fluid Lymphocytes % % Fluid Eosinophils % % Fluid Meso/Macro/Radford % % Fluid Comment Pleural Fluid Source Pleural Color Pleural Appearance Pleural pH (7.3-7.4) Pleural WBC (Auto) /uL Pleural RBC (Auto) /uL Pleural Total Protein gm/dl Pleural LDH U/L Pleural Glucose mg/dl Pleural Amylase U/L Adenovirus (PCR) (NotDetected) B. pertussis DNA (PCR) (NotDetected) B.parapertussis DNA PCR (NotDetected) C. pneumoniae DNA (PCR) (NotDetected) Coronavirus OC43 (PCR) (NotDetected) Coronavirus HKU1 (PCR) (NotDetected) Coronavirus 229E (PCR) (NotDetected) SARS-CoV-2 (PCR) (NotDetected) Coronavirus NL63 (PCR) (NotDetected) Human Metapneumovir PCR (NotDetected) Influenza Type A (PCR) (NotDetected) Influenza Type B (PCR) (NotDetected) M. pneumoniae (PCR) (NotDetected) Parainfluenza 1 (PCR) (NotDetected) Parainfluenza 2 (PCR) (NotDetected) Parainfluenza 3 (PCR) (NotDetected) Parainfluenza 4 (PCR) (NotDetected) RSV (PCR) (NotDetected) Entero/Rhino (PCR) (NotDetected) 11/25/24 11/25/24 11/25/24 Range/Units 17:00 14:14 13:57 WBC (4.8-10.8) K/ul RBC (4.20-5.40) M/uL Hgb (12.0-16.0) g/dl POC Hgb 15.0 (12.0-16.0) g/dl Hct (37.0-47.0) % POC Hct 44 (37-47) % MCV (80.0-100.0) fL MCH (25.0-34.0) pg MCHC (32.0-36.0) g/dL RDW Std Deviation (36.4-46.3) fL RDW Coeff of Viky (11.5-14.5) % Plt Count (130-400) K/uL MPV (9.4-12.4) fL Immature Gran % (Auto) % Neut % (Auto) % Lymph % (Auto) % [place] % (Auto) % Eos % (Auto) % Baso % (Auto) % Neut # (Auto) (1.40-6.50) K/uL Lymph # (Auto) (1.20-3.40) K/uL [place] # (Auto) (0.11-0.59) K/uL Eos # (Auto) (0.00-0.50) K/uL Baso # (Auto) (0.00-0.20) K/uL Immature Gran # (Auto) (0.01-0.20) K/uL PT (9.0-12.0) Seconds INR (0.9-1.1) APTT (21-31) Seconds PTT Ratio Heparin Anti-Xa, Unfract (0.3-0.7) IU/ml POC Sodium 136 (135-144) mmol/L Sodium (136-145) mmol/L POC Potassium 4.4 (3.3-5.0) mmol/L Potassium (3.5-5.1) mmol/L POC Chloride 101 (101-112) mmol/L Chloride (98-107) mmol/L Carbon Dioxide (21-32) mmol/L POC Total CO2 26 (24-31) mmol/L Anion Gap (3-11) POC Anion Gap 14.0 L (16-25) mmol/L POC BUN 9 (7-18) mg/dl BUN (6-23) mg/dl Creatinine (0.6-1.2) mg/dl POC Creatinine 0.7 (0.6-1.3) mg/dl Est Cr Clr Drug Dosing eGFR BUN/Creatinine Ratio (10-20) Glucose (70-99(Fasting)) mg/dl POC Glucose (other) 97 (70-99) mg/dl Calcium (8.6-10.3) mg/dl POC Ioniz Calcium Reginaldo 1.10 L (1.12-1.32) mmol/l Phosphorus (2.5-4.9) mg/dl Magnesium (1.7-2.4) mg/dl Total Bilirubin (0.2-1.0) mg/dl AST (13-39) U/L ALT (7-52) U/L Alkaline Phosphatase (34-104) U/L Lactate Dehydrogenase (86-244) U/L Troponin I High Sens (0-14) pg/ml Total Protein (6.0-8.3) gm/dl Albumin (3.4-5.0) gm/dl Globulin (2.5-4.0) gm/dl Albumin/Globulin Ratio (0.9-2) Urine Color Urine Appearance (Clear) Urine pH (4.5-7.5) Ur Specific Ottertail (1.000-1.030) Urine Protein (Negative) Urine Glucose (UA) (Negative) Urine Ketones (Negative) Urine Blood (Negative) Urine Nitrite (Negative) Urine Bilirubin (Negative) Urine Urobilinogen (Negative) Ur Leukocyte Esterase (Negative) Urine WBC (Auto) (0-5) /hpf Urine RBC (Auto) (0-2) /hpf U Hyaline Cast (Auto) (0-2) /lpf U Epithel Cells (Auto) (0-2) /hpf Urine Bacteria (Auto) (None Seen) Fluid Neutrophils % 0 % Fluid Lymphocytes % 32 % Fluid Eosinophils % 32 % Fluid Meso/Macro/Radford % 36 % Fluid Comment Pleural Fluid Source Left Lung Pleural Color Yellow Pleural Appearance Hazy Pleural pH 7.60 H (7.3-7.4) Pleural WBC (Auto) 622 /uL Pleural RBC (Auto) 2000 /uL Pleural Total Protein 3.2 gm/dl Pleural LDH 179 U/L Pleural Glucose 102 mg/dl Pleural Amylase 10 U/L Adenovirus (PCR) Not Detected (NotDetected) B. pertussis DNA (PCR) Not Detected (NotDetected) B.parapertussis DNA PCR Not Detected (NotDetected) C. pneumoniae DNA (PCR) Not Detected (NotDetected) Coronavirus OC43 (PCR) Not Detected (NotDetected) Coronavirus HKU1 (PCR) Not Detected (NotDetected) Coronavirus 229E (PCR) Not Detected (NotDetected) SARS-CoV-2 (PCR) Not Detected (NotDetected) Coronavirus NL63 (PCR) Not Detected (NotDetected) Human Metapneumovir PCR Not Detected (NotDetected) Influenza Type A (PCR) Not Detected (NotDetected) Influenza Type B (PCR) Not Detected (NotDetected) M. pneumoniae (PCR) Not Detected (NotDetected) Parainfluenza 1 (PCR) Not Detected (NotDetected) Parainfluenza 2 (PCR) Not Detected (NotDetected) Parainfluenza 3 (PCR) Not Detected (NotDetected) Parainfluenza 4 (PCR) Not Detected (NotDetected) RSV (PCR) Not Detected (NotDetected) Entero/Rhino (PCR) Not Detected (NotDetected) 11/25/24 Range/Units 13:20 WBC 12.11 H (4.8-10.8) K/ul RBC 4.70 (4.20-5.40) M/uL Hgb 14.4 (12.0-16.0) g/dl POC Hgb (12.0-16.0) g/dl Hct 41.0 (37.0-47.0) % POC Hct (37-47) % MCV 87.2 (80.0-100.0) fL MCH 30.6 (25.0-34.0) pg MCHC 35.1 (32.0-36.0) g/dL RDW Std Deviation 43.4 (36.4-46.3) fL RDW Coeff of Viky 13.5 (11.5-14.5) % Plt Count 332 (130-400) K/uL MPV 9.3 L (9.4-12.4) fL Immature Gran % (Auto) 0.4 % Neut % (Auto) 74.7 % Lymph % (Auto) 7.1 % Radford % (Auto) 8.4 % Eos % (Auto) 8.8 % Baso % (Auto) 0.6 % Neut # (Auto) 9.05 H (1.40-6.50) K/uL Lymph # (Auto) 0.86 L (1.20-3.40) K/uL Radford # (Auto) 1.02 H (0.11-0.59) K/uL Eos # (Auto) 1.06 H (0.00-0.50) K/uL Baso # (Auto) 0.07 (0.00-0.20) K/uL Immature Gran # (Auto) 0.05 (0.01-0.20) K/uL PT 12.5 H (9.0-12.0) Seconds INR 1.2 H (0.9-1.1) APTT 27 (21-31) Seconds PTT Ratio 1.0 Heparin Anti-Xa, Unfract (0.3-0.7) IU/ml POC Sodium (135-144) mmol/L Sodium 136 (136-145) mmol/L POC Potassium (3.3-5.0) mmol/L Potassium 4.0 (3.5-5.1) mmol/L POC Chloride (101-112) mmol/L Chloride 103 (98-107) mmol/L Carbon Dioxide 24 (21-32) mmol/L POC Total CO2 (24-31) mmol/L Anion Gap 9 (3-11) POC Anion Gap (16-25) mmol/L POC BUN (7-18) mg/dl BUN 10 (6-23) mg/dl Creatinine 0.67 (0.6-1.2) mg/dl POC Creatinine (0.6-1.3) mg/dl Est Cr Clr Drug Dosing Not Reportable eGFR 93.39 BUN/Creatinine Ratio 14.9 (10-20) Glucose 104 H (70-99(Fasting)) mg/dl POC Glucose (other) (70-99) mg/dl Calcium 9.0 (8.6-10.3) mg/dl POC Ioniz Calcium Reginaldo (1.12-1.32) mmol/l Phosphorus (2.5-4.9) mg/dl Magnesium 1.8 (1.7-2.4) mg/dl Total Bilirubin 0.5 (0.2-1.0) mg/dl AST 13 (13-39) U/L ALT 6 L (7-52) U/L Alkaline Phosphatase 62 (34-104) U/L Lactate Dehydrogenase (86-244) U/L Troponin I High Sens 7.1 (0-14) pg/ml Total Protein 6.2 (6.0-8.3) gm/dl Albumin 3.7 (3.4-5.0) gm/dl Globulin 2.5 (2.5-4.0) gm/dl Albumin/Globulin Ratio 1.5 (0.9-2) Urine Color Urine Appearance (Clear) Urine pH (4.5-7.5) Ur Specific Ot[place] (1.000-1.030) Urine Protein (Negative) Urine Glucose (UA) (Negative) Urine Ketones (Negative) Urine Blood (Negative) Urine Nitrite (Negative) Urine Bilirubin (Negative) Urine Urobilinogen (Negative) Ur Leukocyte Esterase (Negative) Urine WBC (Auto) (0-5) /hpf Urine RBC (Auto) (0-2) /hpf U Hyaline Cast (Auto) (0-2) /lpf U Epithel Cells (Auto) (0-2) /hpf Urine Bacteria (Auto) (None Seen) Fluid Neutrophils % % Fluid Lymphocytes % % Fluid Eosinophils % % Fluid Meso/Macro/Radford % % Fluid Comment Pleural Fluid Source Pleural Color Pleural Appearance Pleural pH (7.3-7.4) Pleural WBC (Auto) /uL Pleural RBC (Auto) /uL Pleural Total Protein gm/dl Pleural LDH U/L Pleural Glucose mg/dl Pleural Amylase U/L Adenovirus (PCR) (NotDetected) B. pertussis DNA (PCR) (NotDetected) B.parapertussis DNA PCR (NotDetected) C. pneumoniae DNA (PCR) (NotDetected) Coronavirus OC43 (PCR) (NotDetected) Coronavirus HKU1 (PCR) (NotDetected) Coronavirus 229E (PCR) (NotDetected) SARS-CoV-2 (PCR) (NotDetected) Coronavirus NL63 (PCR) (NotDetected) Human Metapneumovir PCR (NotDetected) Influenza Type A (PCR) (NotDetected) Influenza Type B (PCR) (NotDetected) M. pneumoniae (PCR) (NotDetected) Parainfluenza 1 (PCR) (NotDetected) Parainfluenza 2 (PCR) (NotDetected) Parainfluenza 3 (PCR) (NotDetected) Parainfluenza 4 (PCR) (NotDetected) RSV (PCR) (NotDetected) Entero/Rhino (PCR) (NotDetected) Diagnostic Findings Chest CTA 11/25/24 13:09 CT ANGIOGRAPHY OF THE CHEST, PULMONARY EMBOLUS PROTOCOL CLINICAL HISTORY: Dyspnea. Lung cancer. COMPARISON STUDY: Chest CT October 14, 2024. TECHNIQUE: Following IV administration of 118 mL of Optiray, helical axial images of the chest were obtained utilizing the pulmonary embolus protocol. Maximal intensity projections and sagittal and coronal reformats were viewed on an independent 3D workstation. IV contrast was administered without complication. Automated exposure control was utilized for the study. A dose lowering technique was utilized adhering to the principles of ALARA. CT DOSE: 835.05 mGy.cm FINDINGS: No pulmonary emboli are identified. There is no thoracic aortic dissection. There is no pericardial effusion. A large malignant left pleural effusion has significantly increased in size since CT of October 14, 2024. There is no pneumothorax. There is a small right pleural effusion. Extensive left lung airspace opacity with volume loss is noted. This has progressed since prior examination. The previously described left apical mass is obscured on this exam. Pleural metastatic disease within the left hemithorax has mildly progressed. Thoracic lymphadenopathy as also mildly progressed. A left supraclavicular lymph node on image 175 of 211 measures 2 x 1.4 cm, previously 1.5 x 1.4 cm. A left axillary lymph node measures 2.8 x 1.9 cm. This was partially imaged on prior exam. An additional left axillary lymph node measures 1.6 x 1.4 cm, previously 1.4 x 1.1 cm. Mediastinal and hilar adenopathy has also progressed. Several small right lower lobe pulmonary nodules measuring up to 5 mm are unchanged. There are mild groundglass opacities within the right lung. Status post T12 kyphoplasty. Visualized portions of the upper abdomen are unremarkable. IMPRESSION: 1. No pulmonary emboli identified. 2. Mild progression of metastatic disease since chest CT of October 14, 2024, as described above. Large malignant left pleural effusion which has significantly increased in size since prior exam. This results in diminished aeration of the left lung. 3. Mild progression of thoracic lymphadenopathy. 4. No significant change in several small right lower lobe pulmonary nodules. ACT 112: Negative or not required by law. Electronically signed by: Arsen Dominguez M.D. 11/25/2024 3:02 PM Chest X-Ray 11/25/24 16:58 EXAM: Radiograph of the Chest 1 View INDICATION: Chest tube. TECHNIQUE: Frontal view of the chest. COMPARISON: 08/21/2024 FINDINGS: Lungs and pleural spaces: Moderate to large left pleural effusion. The effusion is probably partially loculated. No visible pneumothorax. There is moderate consolidation of the lingula and left lower lobe. Heart: Shape and configuration within normal limits allowing for technique. Mediastinum: Normal contour. Bones/joints: No fracture, erosion or dislocation. Soft tissues: No abnormality noted. No radiopaque foreign body noted. Tubes, lines and devices: There is a left pleural drain with the pigtail projecting over the left midlung. Upper abdomen: No abnormality noted. IMPRESSION: 1. Moderate to large left pleural effusion likely partially loculated with pleural drain in place. 2. Considerable consolidation in the left lung sparing the upper lobe. Compressive atelectasis, central obstructing mass or mucous plug and pneumonia considered. ACT 112: Negative or not required by law. Electronically signed by Lucy Swanson 11-25-2024 5:32 PM Chest X-Ray 11/26/24 08:05 XR chest 1V portable CLINICAL HISTORY: f/u COMPARISON STUDY: Chest radiograph and chest CT November 25, 2024. FINDINGS: The left pleural catheter has been repositioned. The left pleural effusion has significantly decreased in size since prior examination. A small lucency projects over the left midlung. Left lung aeration has improved. There is no definite pneumothorax. Cardiomediastinal silhouette is stable. There are postoperative finding within the cervical spine. IMPRESSION: 1. Significant decrease in size of a left pleural effusion. Left pleural catheter in place. Improvement in left lung aeration. 2. Small lucency within the left midlung. This may be artifactual or represent a small amount of pleural gas. No significant pneumothorax. ACT 112: Negative or not required by law. Electronically signed by: Arsen Dominguez M.D. 11/26/2024 9:09 AM Soft Tissue Neck CT 11/26/24 09:[address] WITHOUT CONTRAST CLINICAL HISTORY: Dysphagia. Lung cancer. COMPARISON STUDY: MRI of the cervical spine July 27, 2024. CT of the cervical spine June 27, 2024. CT of the neck November 04, 2020. FINDINGS: Visualized portions of the intracranial contents are unremarkable on unenhanced examination. There are postoperative findings consistent with C4-C7 anterior discectomy and fusion. Postoperative appearance is similar to neck CT of November 04, 2020. No suspicious lesions within the cervical spine are identified. There are no cervical spine fractures. Evaluation of the neck is compromised on unenhanced exam. No fluid collections are identified. There is no prevertebral edema. The glottis is closed. Apparent medialization of the right vocal cord may be due to a closed glottis. Multiple enlarged cervical and mediastinal lymph nodes are again noted, as shown on recent chest CT. A left supraclavicular lymph node on image 277 of 341 measures 2 x 1.3 cm. Trace left apical pleural gas is noted. Left apical mass is again noted as well as left pleural implants and nodular interlobular septal thickening within the left upper lobe. IMPRESSION: 1. Pathologic cervical and mediastinal lymphadenopathy, as described above. 2. 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 Trace left pleural gas, likely related to recent thoracentesis. 3. No fluid collections within the neck. No prevertebral edema. 4. No mucosal lesions within the neck although sensitivity diminished on unenhanced exam. ACT 112: Negative or not required by law. Electronically signed by: Arsen Dominguez M.D. 11/26/2024 10:18 AM KUB X-Ray 11/26/24 17:01 Exam(s): XR KUB EXAM: XR Abdomen, 1 View CLINICAL HISTORY: Reason for exam: left lower ab pain. TECHNIQUE: Frontal supine view of the abdomen/pelvis. COMPARISON: No relevant prior studies available. FINDINGS: Gastrointestinal tract: Gas distended colon may represent ileus. Bones/joints: Posterior hardware fixation L5-S1. Vertebral augmentation at L1. Osteopenia. Degenerative change in the spine and sacroiliac joints. No acute osseous findings as visualized. IMPRESSION: Gas distended colon in the left abdomen may represent ileus. Electronically signed by: Akira Alvarado M.D. 11/26/24 21:16 PM Venous Doppler Study 11/26/24 20:41 CR Exam(s): US VENOUS LEFT LOWER EXTREMITY EXAM: US Duplex Left Lower Extremity Veins CLINICAL HISTORY: Reason for exam: swelling. TECHNIQUE: Real-time duplex ultrasound scan of the left lower extremity veins integrating B-mode two-dimensional vascular structure, Doppler spectral analysis, color flow Doppler imaging and compression. COMPARISON: No relevant prior studies available. FINDINGS: Deep veins: There is deep venous thrombosis in a left posterior tibial vein. No DVT in the visualized common femoral, femoral, proximal deep femoral or popliteal veins. These veins demonstrate normal color flow, are normally compressible, with normal phasic flow and/or augmentation response. Superficial veins: Unremarkable. No thrombus in the visualized great saphenous vein. Soft tissues: No acute findings. No popliteal cyst. IMPRESSION: There is deep venous thrombosis in a left posterior tibial vein. Communications: Call Doctor DVT acute, progressing Electronically signed by: Indra Gomez MD 11/27/24 01:44 AM Chest X-Ray 11/27/24 07:00 EXAM: XR chest 1V portable CLINICAL HISTORY: Follow-up TECHNIQUE: An X-ray image of the chest is obtained in AP projection. COMPARISON: 11/25/2024 FINDINGS: Pulmonary Parenchyma: Diffuse opacities notedi n the left lung, more evident in the left lower lung zone, with obliteartion of the left costophrenic angle, could be with pleural effusion. The suspected right hilar opacity could be from a rotated film, Follow-up is needed. Right lungs are clear. No evidence of right pleural effusion or pleural thickening. Heart and Mediastinum: Heart size and shape are normal. No mediastinal widening or masses. No hilar or mediastinal lymphadenopathy. Bony Thorax: Bony thorax appears intact without fractures or deformities. Soft Tissues: Soft tissues overlying the chest wall are unremarkable. IMPRESSION: 1. Diffuse opacities noted in the left lung, more evident in the left lower lung zone, could be infection, with obliteration of the left costophrenic angle, denoting pleural effusion. there is a regression regarding the amount of left pleural effusion in comparison to the prior scan. 2. The suspected right hilar opacity could be from a rotated film, Follow-up is needed. Electronically signed by Leif Sweeney 11-27-2024 08:16 AM PG Care Time/CCT Total # of Minutes Spent Total Time Spent with Patient: Total time spent is greater than 50% in coordination of care (as documented) at patient's floor/unit and/or counseling patient: I spent 120 minutes overall addressing this case: 15 min in medical data review/discussion with referring provider(s) and/or preparation for the visit 20 min in direct interaction with the patient/exam 55 min in Advance Care Planning/Goals of Care discussions as detailed above in note (must be >16min) 15 min in subsequent review and synthesis of assessment and plan 15 min communicating with other providers regarding the patient's case: Nursing, primary team, medical oncology ([facility]) [place] [address] IN/OBS CONSULT LVL 4,60M (25 - SIGNIFICANT, SEPARATELY IDENTIFIABLE ) Patient Type New Medical Decision Making High Complexity Diagnoses Cancer related pain G89.3 Opioid-induced constipation K59.03; T40.2X5A Dyspnea and respiratory abnormalities R06.00; R06.89 Anxiety associated with cancer diagnosis F41.1; C80.1 Advanced care planning/counseling discussion Z71.89 Palliative care by specialist Z51.5
[2024-11-28] MEDS: MAGNESIUM OXIDE 400 MG TAB PO SCH (12:14)
--- NOTE | 2024-11-28 13:12 | Hospitalist Progress Note ---
Date of Service November 28, 2024 Assessment & Plan (1) Pleural effusion: (2) Small cell lung cancer, left upper lobe: Plan: 69-year-old female with history of metastatic lung cancer, asthma, etc. presenting with shortness of breath times few days. Left-sided pleural effusion Metastatic lung cancer Status post pigtail insertion by Dr. Davis Follow-up fluid studies Currently taking Tagrisso oral chemo Per pulmonary med (Dr. Davis) - removed chest tube yesterday (11/27/2023) Continue with BiPAP nightly and as needed shortness of breath Overall prognosis is poor Abdominal pain - resolved - left upper quadrant - KUB obtained - Gas distended colon in the left abdomen may represent ileus. - after Chest tube removal pt says abd. pain resolved, she is passing gas now, but no BM yet. cont. bowel regimen Acute LE DVT Doppler obtained - deep venous thrombosis in a left posterior tibial vein Started on IV heparin overnight - started coumadin, continue L ankle pain - tender to palp. today - will obtain XR Chronic cough, likely mod persistent asthma -Perforomist, budesonide ordered History of PE: Patient reports history of PE in 2001 postoperatively. Patient reports she was on coumadin before. Not on any blood thinner currently. PCP follow-up Other chronic medical condition: HTN, HLD, hypothyroidism etc. ---> continue with/resume home meds as when able. Hold lisinopril for now, BP on lower side DVT prophylaxis - IV heparin, warfarin DNR as per patient Disposition Lives with family at home Admission and Anticipated Discharge Date Admission Date: November 25, 2024 Subjective Pt seen in follow up of L pl. effusion, hx of squamous cell lung ca. S/p pigtail chest tube placement Chest tube removed yesterday Reports pain in chest and abdomen now much improved/ resolved She is passing flatus but no BM yet breathing overall improved but pt is on suppl. O2 Today she reports new L ankle pain On IV heparin - as found LLE DVT Pulmonary medicine consulted and following Contacted by palliative med . - Dr. Bertrand as she follows the pt in clinic - follow up with the pt inpt. Multiple visitors - home health nurses present, also palliative present. Review of Systems Review of Systems: All systems reviewed & are unremarkable except as noted in Subjective Physical Exam Physical Exam: General- oriented x 3, not in distress, speaks in sentences with no effort or accessory muscle use Head- atraumatic Eyes- PERRL, EOMI, anicteric Neck- supple Lungs-Decreased breath sounds left lung culver, chest tube removed minimal basilar crackles b/l No wheezing Heart- normal rate, regular rhythm; no murmur Abdomen- normal bowel sounds, nondistended, soft, mildly tender at left upper quadrant Extremities- mild LLE edema, L ankle tender to palpation Neuro- alert, oriented x 3; speech fluent, no facial asymmetry, answers appropriately, moves extremities Skin- warm & dry Results & Data Results & Data Vital Signs (Past 12 Hours) Vital Signs Temp Pulse Pulse Resp BP BP Pulse Ox 11/28/24 11:42 36.9 C 87 18 117/70 94 11/28/24 10:56 76 11/28/24 10:56 11/28/24 08:27 37.2 C 72 18 112/69 100 11/28/24 07:58 86 20 93 11/28/24 03:17 37.1 C 86 18 114/78 93 O2 Del Method O2 Flow Rate FiO2 11/28/24 11:42 Nasal Cannula 3 11/28/24 10:56 11/28/24 10:56 Nasal Cannula 2 11/28/24 08:27 Nasal Cannula 3 11/28/24 07:58 Nasal Cannula 2 11/28/24 03:17 Nasal Cannula 2 Laboratory Results 11/28/24 11/27/24 11/27/24 Range/Units 03:46 21:21 14:20 WBC 8.36 (4.8-10.8) K/ul RBC 4.21 (4.20-5.40) M/uL Hgb 12.7 (12.0-16.0) g/dl Hct 37.4 (37.0-47.0) % MCV 88.8 (80.0-100.0) fL MCH 30.2 (25.0-34.0) pg MCHC 34.0 (32.0-36.0) g/dL RDW Std Deviation 43.3 (36.4-46.3) fL RDW Coeff of Viky 13.2 (11.5-14.5) % Plt Count 298 (130-400) K/uL MPV 9.3 L (9.4-12.4) fL PT 13.5 H (9.0-12.0) Seconds INR 1.3 H (0.9-1.1) Heparin Anti-Xa, Unfract 0.36 0.24 L 0.25 L (0.3-0.7) IU/ml Sodium 134 L (136-145) mmol/L Potassium 3.9 (3.5-5.1) mmol/L Chloride 101 (98-107) mmol/L Carbon Dioxide 27 (21-32) mmol/L Anion Gap 6 (3-11) BUN 10 (6-23) mg/dl Creatinine 0.56 L (0.6-1.2) mg/dl Est Cr Clr Drug Dosing 87.3 ml/min eGFR 97.51 BUN/Creatinine Ratio 17.9 (10-20) Glucose 106 H (70-99(Fasting)) mg/dl Calcium 8.3 L (8.6-10.3) mg/dl Phosphorus 3.7 D (2.5-4.9) mg/dl Magnesium 1.8 (1.7-2.4) mg/dl Medications Administered Current Inpatient Medications Acetaminophen (Acetaminophen 325 Mg Tab) 650 mg PO Q4H PRN PRN Reason: Pain or Fever Stop: 12/25/24 16:34 Last Admin: 11/26/24 22:02 Dose: 650 mg Baclofen (Baclofen 20 Mg Tab) 20 mg PO BID [facility] Stop: 12/26/24 08:59 Last Admin: 11/28/24 08:51 Dose: 20 mg Budesonide (Budesonide 0.5 Mg/2 Ml Vial (Pulmicort)) 0.5 mg NEB BIDR [facility] Stop: 12/25/24 18:59 Last Admin: 11/28/24 07:17 Dose: 0.5 mg Docusate Sodium (Docusate Sodium 100 Mg Cap) 100 mg PO BID PRN PRN Reason: Constipation Stop: 12/25/24 23:27 Last Admin: 11/28/24 08:49 Dose: 100 mg Famotidine (Famotidine 20 Mg Tab) 20 mg PO BID [facility] [place] Stop: 12/26/24 08:59 Last Admin: 11/28/24 08:52 Dose: 20 mg Formoterol Fumarate (Formoterol 20 Mcg/2 Ml Vial) 20 mcg INH BIDR [facility] Stop: 12/25/24 18:59 Last Admin: 11/28/24 07:17 Dose: 20 mcg Guaifenesin (Guaifenesin 600 Mg Tabcr) 600 mg PO BID PRN PRN Reason: chest congestion Stop: 12/25/24 23:27 Last Admin: 11/26/24 05:31 Dose: 600 mg Hydromorphone HCl (Hydromorphone Inj 0.5 Mg/0.5 Ml Syr) 1.2 mg IV Q4H PRN PRN Reason: MODERATE TO SEVERE PAIN Stop: 12/09/24 17:12 Last Admin: 11/28/24 08:48 Dose: 1.2 mg Heparin Sodium/Dextrose (Heparin Sodium/Dextrose) 25,000 units in 500 mls @ 24 mls/hr IV .[id number] [facility]; Protocol Stop: 12/27/24 02:14 Last Titration: 11/28/24 07:07 Dose: 1,200 units/hr, 24 mls/hr Levothyroxine Sodium (Levothyroxine Sodium 100 Mcg Tablet) 100 mcg PO DAILYBB [facility] Stop: 12/28/24 06:29 Last Admin: 11/28/24 05:37 Dose: 100 mcg Lidocaine (Lidocaine 5% 1 Patch) 1 patch TD DAILY [facility] [place] Stop: 12/26/24 08:59 Last Admin: 11/28/24 08:50 Dose: 1 patch Lisinopril (Lisinopril 10 Mg Tab) 10 mg PO DAILY [facility] [place] Stop: 12/26/24 08:59 Last Admin: 11/26/24 07:40 Dose: 10 mg Lorazepam (Lorazepam 2 Mg/1 Ml Vial) 0.5 mg IV Q8H PRN PRN Reason: Anxiety/Agitation Stop: 12/27/24 13:30 Last Admin: 11/27/24 13:58 Dose: 0.5 mg Magnesium Oxide (Magnesium Oxide 400 Mg Tab) 400 mg PO BID [facility] Stop: 12/28/24 11:29 Last Admin: 11/28/24 12:14 Dose: 400 mg Miscellaneous (Remove Lidoderm Patch) 1 each N/A DAILY@2100 [facility] Stop: 12/25/24 20:59 Last Admin: 11/27/24 20:57 Dose: 1 each Morphine Sulfate (Morphine Sulfate Cr 15 Mg Tabcr) 15 mg PO Q8H [facility] [place] Stop: 12/11/24 13:29 Last Admin: 11/28/24 05:36 Dose: 15 mg Osimertinib (Osimertinib Mesylate) 1 each PO PM [facility] Stop: 12/26/24 23:44 Last Admin: 11/27/24 20:56 Dose: 1 each Polyethylene Glycol (Polyethylene (Miralax) 17 Gm Pack) 17 gm PO DAILY PRN PRN Reason: Constipation Stop: 12/25/24 23:27 Last Admin: 11/28/24 08:49 Dose: 17 gm Senna/Docusate Sodium (Docusate Sodium/Senna 50/8.6mg Tab) 2 tab PO BID [facility] Stop: 12/27/24 20:59 Last Admin: 11/28/24 08:49 Dose: 2 tab Vitamin D (Cholecalciferol 25 Mcg (1000 Units) Tab) 25 mcg PO DAILY [facility] Stop: 12/26/24 08:59 Last Admin: 11/28/24 08:51 Dose: 25 mcg Warfarin Sodium (Warfarin Sod 4 Mg Tab) 4 mg PO DAILY@1600 [facility] Stop: 12/27/24 17:59 Last Admin: 11/27/24 18:28 Dose: 4 mg Zolpidem Tartrate (Zolpidem Tartrate 5 Mg Tab) 10 mg PO HS PRN PRN Reason: insomnia Stop: 12/25/24 23:04 Last Admin: 11/27/24 22:10 Dose: 10 mg
--- NOTE | 2024-11-28 13:55 | XRay Report ---
KUB CLINICAL HISTORY: Possible ileus. Metastatic disease. COMPARISON STUDY: CT of the abdomen and pelvis September 08, 2024. KUB November 26, 2024. FINDINGS: T12 kyphoplasty and right L5-S1 fusion are incidentally noted. The bowel gas pattern is nor mal. The amount of stool is within normal limits. There are no urinary calculi. A left pleural effusi on with left lower lung opacity is better depicted on chest radiograph of November 27, 2024. Gas within the left chest wall from recent pleural catheter is present IMPRESSION: 1. No evidence for a bowel obstruction. Normal bowel gas pattern. 2. Amount of stool within normal limits. ACT 112: Negative or not required by law. Electronically signed by: Arsen Dominguez M.D. 11/28/2024 1:53 PM
--- NOTE | 2024-11-28 14:17 | XRay Report ---
XR ankle LT min 3V routine CLINICAL HISTORY: New L ankle pain TECHNIQUE: 3 views of the left ankle were obtained. Comparison: Comparison is made to tibia and fibular radiograph 06/10/2024 FINDINGS: No fractures are present. The joint spaces are well preserved. No soft tissue abnormality is seen. IMPRESSION: No evidence of acute bony injury. ACT 112: Negative or not required by law. Electronically signed by: Adelso Hernandez M.D. 11/28/2024 2:16 PM
[2024-11-28] MEDS ORDERED: Nursing to Pharmacy Communication SCH (16:45)
--- NOTE | 2024-11-28 19:00 | Palliative Care Progress Note ---
Date of Service November 28, 2024 Assessment & Plan (1) Opioid-induced constipation: Plan: KUB today no ileus, normal stool pattern Will continue bowel regimen, consider mineral oil suppository tomorrow if no BM (2) Cancer related pain: Plan: improved with MS Contin 15mg PO q8h, tolerating well (3) Anxiety associated with cancer diagnosis: (4) Acute generalized abdominal pain: (5) Dyspnea and respiratory abnormalities: (6) Weakness generalized: (7) Palliative care by specialist: (8) Primary lung squamous cell carcinoma: Plan As above. Thank you for allowing us to participate in the ongoing care of this patient. Please page with any additional concerns. Wayne Bertrand DNP Director, Palliative Medicine Admission and Anticipated Discharge Date Admission Date: November 25, 2024 Subjective Myra is OOB to chair pain mgt is better w/changes from yesterday inc gas but no BM yet tolerating miralax and senna s last KUB 11/26, will reorder for today appetite is down but no nausea or vomiting, denies abd pain breathing more comfortable Review of Systems Review of Systems: All systems reviewed & are unremarkable except as noted in Subjective Physical Exam Physical Exam: + Distress: Anxious, intermittently tear ful, complexion pale NCAT PERRLA, EOMIs No stridor dentition intact Resp effort mildly increased, + conversational dyspnea, + decreased air entry left more than right, no particular wheeze, + bilateral crackles left greater than right. S1-S2 noted, no gross evidence of JVP. No overt murmur. Abdomen softly distended, mildly tender, bowel sounds diminished, no guarding, no rebound. Mild weakness symmetrically but strength overall intact Left lower extremity edema, no calf tenderness, +dysesthetic pain ankle skin pale, warm AAOx3, following commands Results & Data Vital Signs (Past 12 Hours) Vital Signs Temp Pulse Pulse Resp BP BP Pulse Ox 11/28/24 17:06 94 H 11/28/24 15:52 37.6 C H 81 18 120/81 93 11/28/24 11:42 36.9 C 87 18 117/70 94 11/28/24 10:56 76 11/28/24 10:56 11/28/24 08:27 37.2 C 72 18 112/69 100 11/28/24 07:58 86 20 93 O2 Del Method O2 Flow Rate FiO2 11/28/24 17:06 11/28/24 15:52 Nasal Cannula 2 11/28/24 11:42 Nasal Cannula 3 11/28/24 10:56 11/28/24 10:56 Nasal Cannula 2 11/28/24 08:27 Nasal Cannula 3 11/28/24 07:58 Nasal Cannula 2 Laboratory Results 11/28/24 11/27/24 11/27/24 Range/Units 03:46 21:21 14:20 WBC 8.36 (4.8-10.8) K/ul RBC 4.21 (4.20-5.40) M/uL Hgb 12.7 (12.0-16.0) g/dl POC Hgb (12.0-16.0) g/dl Hct 37.4 (37.0-47.0) % POC Hct (37-47) % MCV 88.8 (80.0-100.0) fL MCH 30.2 (25.0-34.0) pg MCHC 34.0 (32.0-36.0) g/dL RDW Std Deviation 43.3 (36.4-46.3) fL RDW Coeff of Viky 13.2 (11.5-14.5) % Plt Count 298 (130-400) K/uL MPV 9.3 L (9.4-12.4) fL Immature Gran % (Auto) % Neut % (Auto) % Lymph % (Auto) % Mercer % (Auto) % Eos % (Auto) % Baso % (Auto) % Neut # (Auto) (1.40-6.50) K/uL Lymph # (Auto) (1.20-3.40) K/uL Mercer # (Auto) (0.11-0.59) K/uL Eos # (Auto) (0.00-0.50) K/uL Baso # (Auto) (0.00-0.20) K/uL Immature Gran # (Auto) (0.01-0.20) K/uL PT 13.5 H (9.0-12.0) Seconds INR 1.3 H (0.9-1.1) APTT (21-31) Seconds PTT Ratio Heparin Anti-Xa, Unfract 0.36 0.24 L 0.25 L (0.3-0.7) IU/ml POC Sodium (135-144) mmol/L Sodium 134 L (136-145) mmol/L POC Potassium (3.3-5.0) mmol/L Potassium 3.9 (3.5-5.1) mmol/L POC Chloride (101-112) mmol/L Chloride 101 (98-107) mmol/L Carbon Dioxide 27 (21-32) mmol/L POC Total CO2 (24-31) mmol/L Anion Gap 6 (3-11) POC Anion Gap (16-25) mmol/L POC BUN (7-18) mg/dl BUN 10 (6-23) mg/dl Creatinine 0.56 L (0.6-1.2) mg/dl POC Creatinine (0.6-1.3) mg/dl Est Cr Clr Drug Dosing 87.3 eGFR 97.51 BUN/Creatinine Ratio 17.9 (10-20) Glucose 106 H (70-99(Fasting)) mg/dl POC Glucose (other) (70-99) mg/dl Calcium 8.3 L (8.6-10.3) mg/dl POC Ioniz Calcium Reginaldo (1.12-1.32) mmol/l Phosphorus 3.7 D (2.5-4.9) mg/dl Magnesium 1.8 (1.7-2.4) mg/dl Total Bilirubin (0.2-1.0) mg/dl AST (13-39) U/L ALT (7-52) U/L Alkaline Phosphatase (34-104) U/L Lactate Dehydrogenase (86-244) U/L Troponin I High Sens (0-14) pg/ml Total Protein (6.0-8.3) gm/dl Albumin (3.4-5.0) gm/dl Globulin (2.5-4.0) gm/dl Albumin/Globulin Ratio (0.9-2) Urine Color Urine Appearance (Clear) Urine pH (4.5-7.5) Ur Specific Sawyer (1.000-1.030) Urine Protein (Negative) Urine Glucose (UA) (Negative) Urine Ketones (Negative) Urine Blood (Negative) Urine Nitrite (Negative) Urine Bilirubin (Negative) Urine Urobilinogen (Negative) Ur Leukocyte Esterase (Negative) Urine WBC (Auto) (0-5) /hpf Urine RBC (Auto) (0-2) /hpf U Hyaline Cast (Auto) (0-2) /lpf U Epithel Cells (Auto) (0-2) /hpf Urine Bacteria (Auto) (None Seen) Fluid Neutrophils % % Fluid Lymphocytes % % Fluid Eosinophils % % Fluid Meso/Macro/Mercer % % Fluid Comment Pleural Fluid Source Pleural Color Pleural Appearance Pleural pH (7.3-7.4) Pleural WBC (Auto) /uL Pleural RBC (Auto) /uL Pleural Total Protein gm/dl Pleural LDH U/L Pleural Glucose mg/dl Pleural Amylase U/L Adenovirus (PCR) (NotDetected) B. pertussis DNA (PCR) (NotDetected) B.parapertussis DNA PCR (NotDetected) C. pneumoniae DNA (PCR) (NotDetected) Coronavirus OC43 (PCR) (NotDetected) Coronavirus HKU1 (PCR) (NotDetected) Coronavirus 229E (PCR) (NotDetected) SARS-CoV-2 (PCR) (NotDetected) Coronavirus NL63 (PCR) (NotDetected) Human Metapneumovir PCR (NotDetected) Influenza Type A (PCR) (NotDetected) Influenza Type B (PCR) (NotDetected) M. pneumoniae (PCR) (NotDetected) Parainfluenza 1 (PCR) (NotDetected) Parainfluenza 2 (PCR) (NotDetected) Parainfluenza 3 (PCR) (NotDetected) Parainfluenza 4 (PCR) (NotDetected) RSV (PCR) (NotDetected) Entero/Rhino (PCR) (NotDetected) 11/27/24 11/27/24 11/27/24 Range/Units 06:26 02:09 02:04 WBC 11.52 H (4.8-10.8) K/ul RBC 4.30 (4.20-5.40) M/uL Hgb 13.0 (12.0-16.0) g/dl POC Hgb (12.0-16.0) g/dl Hct 38.5 (37.0-47.0) % POC Hct (37-47) % MCV 89.5 (80.0-100.0) fL MCH 30.2 (25.0-34.0) pg MCHC 33.8 (32.0-36.0) g/dL RDW Std Deviation 44.1 (36.4-46.3) fL RDW Coeff of Viky 13.4 (11.5-14.5) % Plt Count 289 (130-400) K/uL MPV 9.4 (9.4-12.4) fL Immature Gran % (Auto) 0.2 % Neut % (Auto) 68.2 % Lymph % (Auto) 12.0 % Mercer % (Auto) 9.6 % Eos % (Auto) 9.6 % Baso % (Auto) 0.4 % Neut # (Auto) 7.85 H (1.40-6.50) K/uL Lymph # (Auto) 1.38 (1.20-3.40) K/uL Mercer # (Auto) 1.11 H (0.11-0.59) K/uL Eos # (Auto) 1.11 H (0.00-0.50) K/uL Baso # (Auto) 0.05 (0.00-0.20) K/uL Immature Gran # (Auto) 0.02 (0.01-0.20) K/uL PT 14.0 H (9.0-12.0) Seconds INR 1.3 H (0.9-1.1) APTT 31 (21-31) Seconds PTT Ratio 1.2 Heparin Anti-Xa, Unfract 0.21 L (0.3-0.7) IU/ml POC Sodium (135-144) mmol/L Sodium 133 L (136-145) mmol/L POC Potassium (3.3-5.0) mmol/L Potassium 4.5 (3.5-5.1) mmol/L POC Chloride (101-112) mmol/L Chloride 99 (98-107) mmol/L Carbon Dioxide 27 (21-32) mmol/L POC Total CO2 (24-31) mmol/L Anion Gap 7 (3-11) POC Anion Gap (16-25) mmol/L POC BUN (7-18) mg/dl BUN 13 (6-23) mg/dl Creatinine 0.64 (0.6-1.2) mg/dl POC Creatinine (0.6-1.3) mg/dl Est Cr Clr Drug Dosing 73.9 eGFR 94.42 BUN/Creatinine Ratio 20.3 H (10-20) Glucose 112 H (70-99(Fasting)) mg/dl POC Glucose (other) (70-99) mg/dl Calcium 8.3 L (8.6-10.3) mg/dl POC Ioniz Calcium Reginaldo (1.12-1.32) mmol/l Phosphorus 5.0 H (2.5-4.9) mg/dl Magnesium 1.8 (1.7-2.4) mg/dl Total Bilirubin (0.2-1.0) mg/dl AST (13-39) U/L ALT (7-52) U/L Alkaline Phosphatase (34-104) U/L Lactate Dehydrogenase (86-244) U/L Troponin I High Sens (0-14) pg/ml Total Protein (6.0-8.3) gm/dl Albumin (3.4-5.0) gm/dl Globulin (2.5-4.0) gm/dl Albumin/Globulin Ratio (0.9-2) Urine Color Urine Appearance (Clear) Urine pH (4.5-7.5) Ur Specific Sawyer (1.000-1.030) Urine Protein (Negative) Urine Glucose (UA) (Negative) Urine Ketones (Negative) Urine Blood (Negative) Urine Nitrite (Negative) Urine Bilirubin (Negative) Urine Urobilinogen (Negative) Ur Leukocyte Esterase (Negative) Urine WBC (Auto) (0-5) /hpf Urine RBC (Auto) (0-2) /hpf U Hyaline Cast (Auto) (0-2) /lpf U Epithel Cells (Auto) (0-2) /hpf Urine Bacteria (Auto) (None Seen) Fluid Neutrophils % % Fluid Lymphocytes % % Fluid Eosinophils % % Fluid Meso/Macro/Mercer % % Fluid Comment Pleural Fluid Source Pleural Color Pleural Appearance Pleural pH (7.3-7.4) Pleural WBC (Auto) /uL Pleural RBC (Auto) /uL Pleural Total Protein gm/dl Pleural LDH U/L Pleural Glucose mg/dl Pleural Amylase U/L Adenovirus (PCR) (NotDetected) B. pertussis DNA (PCR) (NotDetected) B.parapertussis DNA PCR (NotDetected) C. pneumoniae DNA (PCR) (NotDetected) Coronavirus OC43 (PCR) (NotDetected) Coronavirus HKU1 (PCR) (NotDetected) Coronavirus 229E (PCR) (NotDetected) SARS-CoV-2 (PCR) (NotDetected) Coronavirus NL63 (PCR) (NotDetected) Human Metapneumovir PCR (NotDetected) Influenza Type A (PCR) (NotDetected) Influenza Type B (PCR) (NotDetected) M. pneumoniae (PCR) (NotDetected) Parainfluenza 1 (PCR) (NotDetected) Parainfluenza 2 (PCR) (NotDetected) Parainfluenza 3 (PCR) (NotDetected) Parainfluenza 4 (PCR) (NotDetected) RSV (PCR) (NotDetected) Entero/Rhino (PCR) (NotDetected) 11/26/24 11/25/24 11/25/24 Range/Units 08:35 20:11 17:34 WBC 10.99 H (4.8-10.8) K/ul RBC 4.38 (4.20-5.40) M/uL Hgb 13.2 (12.0-16.0) g/dl POC Hgb (12.0-16.0) g/dl Hct 38.6 (37.0-47.0) % POC Hct (37-47) % MCV 88.1 (80.0-100.0) fL MCH 30.1 (25.0-34.0) pg MCHC 34.2 (32.0-36.0) g/dL RDW Std Deviation 43.4 (36.4-46.3) fL RDW Coeff of Viky 13.4 (11.5-14.5) % Plt Count 283 (130-400) K/uL MPV 9.0 L (9.4-12.4) fL Immature Gran % (Auto) % Neut % (Auto) % Lymph % (Auto) % Mercer % (Auto) % Eos % (Auto) % Baso % (Auto) % Neut # (Auto) (1.40-6.50) K/uL Lymph # (Auto) (1.20-3.40) K/uL Mercer # (Auto) (0.11-0.59) K/uL Eos # (Auto) (0.00-0.50) K/uL Baso # (Auto) (0.00-0.20) K/uL Immature Gran # (Auto) (0.01-0.20) K/uL PT (9.0-12.0) Seconds INR (0.9-1.1) APTT (21-31) Seconds PTT Ratio Heparin Anti-Xa, Unfract (0.3-0.7) IU/ml POC Sodium (135-144) mmol/L Sodium 135 L (136-145) mmol/L POC Potassium (3.3-5.0) mmol/L Potassium 4.0 (3.5-5.1) mmol/L POC Chloride (101-112) mmol/L Chloride 100 (98-107) mmol/L Carbon Dioxide 27 (21-32) mmol/L POC Total CO2 (24-31) mmol/L Anion Gap 8 (3-11) POC Anion Gap (16-25) mmol/L POC BUN (7-18) mg/dl BUN 13 (6-23) mg/dl Creatinine 0.72 (0.6-1.2) mg/dl POC Creatinine (0.6-1.3) mg/dl Est Cr Clr Drug Dosing 65.7 eGFR 89.33 BUN/Creatinine Ratio 18.1 (10-20) Glucose 100 H (70-99(Fasting)) mg/dl POC Glucose (other) (70-99) mg/dl Calcium 8.2 L (8.6-10.3) mg/dl POC Ioniz Calcium Reginaldo (1.12-1.32) mmol/l Phosphorus 5.0 H (2.5-4.9) mg/dl Magnesium 1.7 (1.7-2.4) mg/dl Total Bilirubin 0.5 (0.2-1.0) mg/dl AST (13-39) U/L ALT (7-52) U/L Alkaline Phosphatase (34-104) U/L Lactate Dehydrogenase 279 H (86-244) U/L Troponin I High Sens (0-14) pg/ml Total Protein 6.0 (6.0-8.3) gm/dl Albumin 3.5 (3.4-5.0) gm/dl Globulin (2.5-4.0) gm/dl Albumin/Globulin Ratio (0.9-2) Urine Color Yellow Urine Appearance Clear (Clear) Urine pH 5.0 (4.5-7.5) Ur Specific Sawyer > 1.045 H (1.000-1.030) Urine Protein Trace H (Negative) Urine Glucose (UA) Negative (Negative) Urine Ketones Trace H (Negative) Urine Blood Negative (Negative) Urine Nitrite Negative (Negative) Urine Bilirubin Negative (Negative) Urine Urobilinogen Negative (Negative) Ur Leukocyte Esterase Negative (Negative) Urine WBC (Auto) 0-5 (0-5) /hpf Urine RBC (Auto) 0-2 (0-2) /hpf U Hyaline Cast (Auto) 0-2 (0-2) /lpf U Epithel Cells (Auto) 0-2 (0-2) /hpf Urine Bacteria (Auto) None Seen (None Seen) Fluid Neutrophils % % Fluid Lymphocytes % % Fluid Eosinophils % % Fluid Meso/Macro/Mercer % % Fluid Comment Pleural Fluid Source Pleural Color Pleural Appearance Pleural pH (7.3-7.4) Pleural WBC (Auto) /uL Pleural RBC (Auto) /uL Pleural Total Protein gm/dl Pleural LDH U/L Pleural Glucose mg/dl Pleural Amylase U/L Adenovirus (PCR) (NotDetected) B. pertussis DNA (PCR) (NotDetected) B.parapertussis DNA PCR (NotDetected) C. pneumoniae DNA (PCR) (NotDetected) Coronavirus OC43 (PCR) (NotDetected) Coronavirus HKU1 (PCR) (NotDetected) Coronavirus 229E (PCR) (NotDetected) SARS-CoV-2 (PCR) (NotDetected) Coronavirus NL63 (PCR) (NotDetected) Human Metapneumovir PCR (NotDetected) Influenza Type A (PCR) (NotDetected) Influenza Type B (PCR) (NotDetected) M. pneumoniae (PCR) (NotDetected) Parainfluenza 1 (PCR) (NotDetected) Parainfluenza 2 (PCR) (NotDetected) Parainfluenza 3 (PCR) (NotDetected) Parainfluenza 4 (PCR) (NotDetected) RSV (PCR) (NotDetected) Entero/Rhino (PCR) (NotDetected) 11/25/24 11/25/24 11/25/24 Range/Units 17:00 14:14 13:57 WBC (4.8-10.8) K/ul RBC (4.20-5.40) M/uL Hgb (12.0-16.0) g/dl POC Hgb 15.0 (12.0-16.0) g/dl Hct (37.0-47.0) % POC Hct 44 (37-47) % MCV (80.0-100.0) fL MCH (25.0-34.0) pg MCHC (32.0-36.0) g/dL RDW Std Deviation (36.4-46.3) fL RDW Coeff of Viky (11.5-14.5) % Plt Count (130-400) K/uL MPV (9.4-12.4) fL Immature Gran % (Auto) % Neut % (Auto) % Lymph % (Auto) % Mercer % (Auto) % Eos % (Auto) % Baso % (Auto) % Neut # (Auto) (1.40-6.50) K/uL Lymph # (Auto) (1.20-3.40) K/uL Mercer # (Auto) (0.11-0.59) K/uL Eos # (Auto) (0.00-0.50) K/uL Baso # (Auto) (0.00-0.20) K/uL Immature Gran # (Auto) (0.01-0.20) K/uL PT (9.0-12.0) Seconds INR (0.9-1.1) APTT (21-31) Seconds PTT Ratio Heparin Anti-Xa, Unfract (0.3-0.7) IU/ml POC Sodium 136 (135-144) mmol/L Sodium (136-145) mmol/L POC Potassium 4.4 (3.3-5.0) mmol/L Potassium (3.5-5.1) mmol/L POC Chloride 101 (101-112) mmol/L Chloride (98-107) mmol/L Carbon Dioxide (21-32) mmol/L POC Total CO2 26 (24-31) mmol/L Anion Gap (3-11) POC Anion Gap 14.0 L (16-25) mmol/L POC BUN 9 (7-18) mg/dl BUN (6-23) mg/dl Creatinine (0.6-1.2) mg/dl POC Creatinine 0.7 (0.6-1.3) mg/dl Est Cr Clr Drug Dosing eGFR BUN/Creatinine Ratio (10-20) Glucose (70-99(Fasting)) mg/dl POC Glucose (other) 97 (70-99) mg/dl Calcium (8.6-10.3) mg/dl POC Ioniz Calcium Reginaldo 1.10 L (1.12-1.32) mmol/l Phosphorus (2.5-4.9) mg/dl Magnesium (1.7-2.4) mg/dl Total Bilirubin (0.2-1.0) mg/dl AST (13-39) U/L ALT (7-52) U/L Alkaline Phosphatase (34-104) U/L Lactate Dehydrogenase (86-244) U/L Troponin I High Sens (0-14) pg/ml Total Protein (6.0-8.3) gm/dl Albumin (3.4-5.0) gm/dl Globulin (2.5-4.0) gm/dl Albumin/Globulin Ratio (0.9-2) Urine Color Urine Appearance (Clear) Urine pH (4.5-7.5) Ur Specific Sawyer (1.000-1.030) Urine Protein (Negative) Urine Glucose (UA) (Negative) Urine Ketones (Negative) Urine Blood (Negative) Urine Nitrite (Negative) Urine Bilirubin (Negative) Urine Urobilinogen (Negative) Ur Leukocyte Esterase (Negative) Urine WBC (Auto) (0-5) /hpf Urine RBC (Auto) (0-2) /hpf U Hyaline Cast (Auto) (0-2) /lpf U Epithel Cells (Auto) (0-2) /hpf Urine Bacteria (Auto) (None Seen) Fluid Neutrophils % 0 % Fluid Lymphocytes % 32 % Fluid Eosinophils % 32 % Fluid Meso/Macro/Mercer % 36 % Fluid Comment Pleural Fluid Source Left Lung Pleural Color Yellow Pleural Appearance Hazy Pleural pH 7.60 H (7.3-7.4) Pleural WBC (Auto) 622 /uL Pleural RBC (Auto) 2000 /uL Pleural Total Protein 3.2 gm/dl Pleural LDH 179 U/L Pleural Glucose 102 mg/dl Pleural Amylase 10 U/L Adenovirus (PCR) Not Detected (NotDetected) B. pertussis DNA (PCR) Not Detected (NotDetected) B.parapertussis DNA PCR Not Detected (NotDetected) C. pneumoniae DNA (PCR) Not Detected (NotDetected) Coronavirus OC43 (PCR) Not Detected (NotDetected) Coronavirus HKU1 (PCR) Not Detected (NotDetected) Coronavirus 229E (PCR) Not Detected (NotDetected) SARS-CoV-2 (PCR) Not Detected (NotDetected) Coronavirus NL63 (PCR) Not Detected (NotDetected) Human Metapneumovir PCR Not Detected (NotDetected) Influenza Type A (PCR) Not Detected (NotDetected) Influenza Type B (PCR) Not Detected (NotDetected) M. pneumoniae (PCR) Not Detected (NotDetected) Parainfluenza 1 (PCR) Not Detected (NotDetected) Parainfluenza 2 (PCR) Not Detected (NotDetected) Parainfluenza 3 (PCR) Not Detected (NotDetected) Parainfluenza 4 (PCR) Not Detected (NotDetected) RSV (PCR) Not Detected (NotDetected) Entero/Rhino (PCR) Not Detected (NotDetected) 11/25/24 Range/Units 13:20 WBC 12.11 H (4.8-10.8) K/ul RBC 4.70 (4.20-5.40) M/uL Hgb 14.4 (12.0-16.0) g/dl POC Hgb (12.0-16.0) g/dl Hct 41.0 (37.0-47.0) % POC Hct (37-47) % MCV 87.2 (80.0-100.0) fL MCH 30.6 (25.0-34.0) pg MCHC 35.1 (32.0-36.0) g/dL RDW Std Deviation 43.4 (36.4-46.3) fL RDW Coeff of Viky 13.5 (11.5-14.5) % Plt Count 332 (130-400) K/uL MPV 9.3 L (9.4-12.4) fL Immature Gran % (Auto) 0.4 % Neut % (Auto) 74.7 % Lymph % (Auto) 7.1 % Mercer % (Auto) 8.4 % Eos % (Auto) 8.8 % Baso % (Auto) 0.6 % Neut # (Auto) 9.05 H (1.40-6.50) K/uL Lymph # (Auto) 0.86 L (1.20-3.40) K/uL Mercer # (Auto) 1.02 H (0.11-0.59) K/uL Eos # (Auto) 1.06 H (0.00-0.50) K/uL Baso # (Auto) 0.07 (0.00-0.20) K/uL Immature Gran # (Auto) 0.05 (0.01-0.20) K/uL PT 12.5 H (9.0-12.0) Seconds INR 1.2 H (0.9-1.1) APTT 27 (21-31) Seconds PTT Ratio 1.0 Heparin Anti-Xa, Unfract (0.3-0.7) IU/ml POC Sodium (135-144) mmol/L Sodium 136 (136-145) mmol/L POC Potassium (3.3-5.0) mmol/L Potassium 4.0 (3.5-5.1) mmol/L POC Chloride (101-112) mmol/L Chloride 103 (98-107) mmol/L Carbon Dioxide 24 (21-32) mmol/L POC Total CO2 (24-31) mmol/L Anion Gap 9 (3-11) POC Anion Gap (16-25) mmol/L POC BUN (7-18) mg/dl BUN 10 (6-23) mg/dl Creatinine 0.67 (0.6-1.2) mg/dl POC Creatinine (0.6-1.3) mg/dl Est Cr Clr Drug Dosing Not Reportable eGFR 93.39 BUN/Creatinine Ratio 14.9 (10-20) Glucose 104 H (70-99(Fasting)) mg/dl POC Glucose (other) (70-99) mg/dl Calcium 9.0 (8.6-10.3) mg/dl POC Ioniz Calcium Reginaldo (1.12-1.32) mmol/l Phosphorus (2.5-4.9) mg/dl Magnesium 1.8 (1.7-2.4) mg/dl Total Bilirubin 0.5 (0.2-1.0) mg/dl AST 13 (13-39) U/L ALT 6 L (7-52) U/L Alkaline Phosphatase 62 (34-104) U/L Lactate Dehydrogenase (86-244) U/L Troponin I High Sens 7.1 (0-14) pg/ml Total Protein 6.2 (6.0-8.3) gm/dl Albumin 3.7 (3.4-5.0) gm/dl Globulin 2.5 (2.5-4.0) gm/dl Albumin/Globulin Ratio 1.5 (0.9-2) Urine Color Urine Appearance (Clear) Urine pH (4.5-7.5) Ur Specific Sawyer (1.000-1.030) Urine Protein (Negative) Urine Glucose (UA) (Negative) Urine Ketones (Negative) Urine Blood (Negative) Urine Nitrite (Negative) Urine Bilirubin (Negative) Urine Urobilinogen (Negative) Ur Leukocyte Esterase (Negative) Urine WBC (Auto) (0-5) /hpf Urine RBC (Auto) (0-2) /hpf U Hyaline Cast (Auto) (0-2) /lpf U Epithel Cells (Auto) (0-2) /hpf Urine Bacteria (Auto) (None Seen) Fluid Neutrophils % % Fluid Lymphocytes % % Fluid Eosinophils % % Fluid Meso/Macro/Mercer % % Fluid Comment Pleural Fluid Source Pleural Color Pleural Appearance Pleural pH (7.3-7.4) Pleural WBC (Auto) /uL Pleural RBC (Auto) /uL Pleural Total Protein gm/dl Pleural LDH U/L Pleural Glucose mg/dl Pleural Amylase U/L Adenovirus (PCR) (NotDetected) B. pertussis DNA (PCR) (NotDetected) B.parapertussis DNA PCR (NotDetected) C. pneumoniae DNA (PCR) (NotDetected) Coronavirus OC43 (PCR) (NotDetected) Coronavirus HKU1 (PCR) (NotDetected) Coronavirus 229E (PCR) (NotDetected) SARS-CoV-2 (PCR) (NotDetected) Coronavirus NL63 (PCR) (NotDetected) Human Metapneumovir PCR (NotDetected) Influenza Type A (PCR) (NotDetected) Influenza Type B (PCR) (NotDetected) M. pneumoniae (PCR) (NotDetected) Parainfluenza 1 (PCR) (NotDetected) Parainfluenza 2 (PCR) (NotDetected) Parainfluenza 3 (PCR) (NotDetected) Parainfluenza 4 (PCR) (NotDetected) RSV (PCR) (NotDetected) Entero/Rhino (PCR) (NotDetected) Diagnostic Findings Chest CTA 11/25/24 13:09 CT ANGIOGRAPHY OF THE CHEST, PULMONARY EMBOLUS PROTOCOL CLINICAL HISTORY: Dyspnea. Lung cancer. COMPARISON STUDY: Chest CT October 14, 2024. TECHNIQUE: Following IV administration of 118 mL of Optiray, helical axial images of the chest were obtained utilizing the pulmonary embolus protocol. Maximal intensity projections and sagittal and coronal reformats were viewed on an independent 3D workstation. IV contrast was administered without complication. Automated exposure control was utilized for the study. A dose lowering technique was utilized adhering to the principles of ALARA. CT DOSE: 835.05 mGy.cm FINDINGS: No pulmonary emboli are identified. There is no thoracic aortic dissection. There is no pericardial effusion. A large malignant left pleural effusion has significantly increased in size since CT of October 14, 2024. There is no pneumothorax. There is a small right pleural effusion. Extensive left lung airspace opacity with volume loss is noted. This has progressed since prior examination. The previously described left apical mass is obscured on this exam. Pleural metastatic disease within the left hemithorax has mildly progre ssed. Thoracic lymphadenopathy as also mildly progressed. A left supraclavicular lymph node on image 175 of 211 measures 2 x 1.4 cm, previously 1.5 x 1.4 cm. A left axillary lymph node measures 2.8 x 1.9 cm. This was partially imaged on prior exam. An additional left axillary lymph node measures 1.6 x 1.4 cm, previously 1.4 x 1.1 cm. Mediastinal and hilar adenopathy has also progressed. Several small right lower lobe pulmonary nodules measuring up to 5 mm are unchanged. There are mild groundglass opacities within the right lung. Status post T12 kyphoplasty. Visualized portions of the upper abdomen are unremarkable. IMPRESSION: 1. No pulmonary emboli identified. 2. Mild progression of metastatic disease since chest CT of October 14, 2024, as described above. Large malignant left pleural effusion which has significantly increased in size since prior exam. This results in diminished aeration of the left lung. 3. Mild progression of thoracic lymphadenopathy. 4. No significant change in several small right lower lobe pulmonary nodules. ACT 112: Negative or not required by law. Electronically signed by: Arsen Dominguez M.D. 11/25/2024 3:02 PM Chest X-Ray 11/25/24 16:58 EXAM: Radiograph of the Chest 1 View INDICATION: Chest tube. TECHNIQUE: Frontal view of the chest. COMPARISON: 08/21/2024 FINDINGS: Lungs and pleural spaces: Moderate to large left pleural effusion. The effusion is probably partially loculated. No visible pneumothorax. There is moderate consolidation of the lingula and left lower lobe. Heart: Shape and configuration within normal limits allowing for technique. Mediastinum: Normal contour. Bones/joints: No fracture, erosion or dislocation. Soft tissues: No abnormality noted. No radiopaque foreign body noted. Tubes, lines and devices: There is a left pleural drain with the pigtail projecting over the left midlung. Upper abdomen: No abnormality noted. IMPRESSION: 1. Moderate to large left pleural effusion likely partially loculated with pleural drain in place. 2. Considerable consolidation in the left lung sparing the upper lobe. Compressive atelectasis, central obstructing mass or mucous plug and pneumonia considered. ACT 112: Negative or not required by law. Electronically signed by Lucy Swanson 11-25-2024 5:32 PM Chest X-Ray 11/26/24 08:05 XR chest 1V portable CLINICAL HISTORY: f/u COMPARISON STUDY: Chest radiograph and chest CT November 25, 2024. FINDINGS: The left pleural catheter has been repositioned. The left pleural effusion has significantly decreased in size since prior examination. A small lucency projects over the left midlung. Left lung aeration has improved. There is no definite pneumothorax. Cardiomediastinal silhouette is stable. There are postoperative finding within the cervical spine. IMPRESSION: 1. Significant decrease in size of a left pleural effusion. Left pleural catheter in place. Improvement in left lung aeration. 2. Small lucency within the left midlung. This may be artifactual or represent a small amount of pleural gas. No significant pneumothorax. ACT 112: Negative or not required by law. Electronically signed by: Arsen Dominguez M.D. 11/26/2024 9:09 AM Soft Tissue Neck CT 11/26/24 09:[address] WITHOUT CONTRAST CLINICAL HISTORY: Dysphagia. Lung cancer. COMPARISON STUDY: MRI of the cervical spine July 27, 2024. CT of the cervical spine June 27, 2024. CT of the neck November 04, 2020. FINDINGS: Visualized portions of the intracranial contents are unremarkable on unenhanced examination. There are postoperative findings consistent with C4-C7 anterior discectomy and fusion. Postoperative appearance is similar to neck CT of November 04, 2020. No suspicious lesions within the cervical spine are identified. There are no cervical spine fractures. Evaluation of the neck is compromised on unenhanced exam. No fluid collections are identified. There is no prevertebral edema. The glottis is closed. Apparent medialization of the right vocal cord may be due to a closed glottis. Multiple enlarged cervical and mediastinal lymph nodes are again noted, as shown on recent chest CT. A left supraclavicular lymph node on image 277 of 341 measures 2 x 1.3 cm. Trace left apical pleural gas is noted. Left apical mass is again noted as well as left pleural implants and nodular interlobular septal thickening within the left upper lobe. IMPRESSION: 1. Pathologic cervical and mediastinal lymphadenopathy, as described above. 2. 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 Trace left pleural gas, likely related to recent thoracentesis. 3. No fluid collections within the neck. No prevertebral edema. 4. No mucosal lesions within the neck although sensitivity diminished on unenhanced exam. ACT 112: Negative or not required by law. Electronically signed by: Arsen Dominguez M.D. 11/26/2024 10:18 AM KUB X-Ray 11/26/24 17:01 Exam(s): XR KUB EXAM: XR Abdomen, 1 View CLINICAL HISTORY: Reason for exam: left lower ab pain. TECHNIQUE: Frontal supine view of the abdomen/pelvis. COMPARISON: No relevant prior studies available. FINDINGS: Gastrointestinal tract: Gas distended colon may represent ileus. Bones/joints: Posterior hardware fixation L5-S1. Vertebral augmentation at L1. Osteopenia. Degenerative change in the spine and sacroiliac joints. No acute osseous findings as visualized. IMPRESSION: Gas distended colon in the left abdomen may represent ileus. Electronically signed by: Akira Alvarado M.D. 11/26/24 21:16 PM Venous Doppler Study 11/26/24 20:41 CR Exam(s): US VENOUS LEFT LOWER EXTREMITY EXAM: US Duplex Left Lower Extremity Veins CLINICAL HISTORY: Reason for exam: swelling. TECHNIQUE: Real-time duplex ultrasound scan of the left lower extremity veins integrating B-mode two-dimensional vascular structure, Doppler spectral analysis, color flow Doppler imaging and compression. COMPARISON: No relevant prior studies available. FINDINGS: Deep veins: There is deep venous thrombosis in a left posterior tibial vein. No DVT in the visualized common femoral, femoral, proximal deep femoral or popliteal veins. These veins demonstrate normal color flow, are normally compressible, with normal phasic flow and/or augmentation response. Superficial veins: Unremarkable. No thrombus in the visualized great saphenous vein. Soft tissues: No acute findings. No popliteal cyst. IMPRESSION: There is deep venous thrombosis in a left posterior tibial vein. Communications: Call Doctor DVT acute, progressing Electronically signed by: Indra Gomez MD 11/27/24 01:44 AM Chest X-Ray 11/27/24 07:00 EXAM: XR chest 1V portable CLINICAL HISTORY: Follow-up TECHNIQUE: An X-ray image of the chest is obtained in AP projection. COMPARISON: 11/25/2024 FINDINGS: Pulmonary Parenchyma: Diffuse opacities notedi n the left lung, more evident in the left lower lung zone, with obliteartion of the left costophrenic angle, could be with pleural effusion. The suspected right hilar opacity could be from a rotated film, Follow-up is needed. Right lungs are clear. No evidence of right pleural effusion or pleural thickening. Heart and Mediastinum: Heart size and shape are normal. No mediastinal widening or masses. No hilar or mediastinal lymphadenopathy. Bony Thorax: Bony thorax appears intact without fractures or deformities. Soft Tissues: Soft tissues overlying the chest wall are unremarkable. IMPRESSION: 1. Diffuse opacities noted in the left lung, more evident in the left lower lung zone, could be infection, with obliteration of the left costophrenic angle, denoting pleural effusion. there is a regression regarding the amount of left pleural effusion in comparison to the prior scan. 2. The suspected right hilar opacity could be from a rotated film, Follow-up is needed. Electronically signed by Leif Sweeney 11-27-2024 08:16 AM KUB X-Ray 11/28/24 11:35 KUB CLINICAL HISTORY: Possible ileus. Metastatic disease. COMPARISON STUDY: CT of the abdomen and pelvis September 08, 2024. KUB November 26, 2024. FINDINGS: T12 kyphoplasty and right L5-S1 fusion are incidentally noted. The bowel gas pattern is normal. The amount of stool is within normal limits. There are no urinary calculi. A left pleural effusion with left lower lung opacity is better depicted on chest radiograph of November 27, 2024. Gas within the left chest wall from recent pleural catheter is present IMPRESSION: 1. No evidence for a bowel obstruction. Normal bowel gas pattern. 2. Amount of stool within normal limits. ACT 112: Negative or not required by law. Electronically signed by: Arsen Dominguez M.D. 11/28/2024 1:53 PM Ankle X-Ray 11/28/24 13:07 XR ankle LT min 3V routine CLINICAL HISTORY: New L ankle pain TECHNIQUE: 3 views of the left ankle were obtained. Comparison: Comparison is made to tibia and fibular radiograph 06/10/2024 FINDINGS: No fractures are present. The joint spaces are well preserved. No soft tissue abnormality is seen. IMPRESSION: No evidence of acute bony injury. ACT 112: Negative or not required by law. Electronically signed by: Adelso Hernandez M.D. 11/28/2024 2:16 PM PG Care Time/CCT Total # of Minutes Spent Total Time Spent with Patient: Total time spent is greater than 50% in coordination of care (as documented) at patient's floor/unit and/or counseling patient: I spent 60 minutes overall addressing this case: 10 min in medical data review/discussion with referring provider(s) and/or preparation for the visit 20 min in direct interaction with the patient/exam 00 min in Advance Care Planning/Goals of Care discussions as detailed above in note (must be >16min) 15 min in subsequent review and synthesis of assessment and plan 15 min communicating with other providers regarding the patient's case: nursing, primary team [place] [address] SUB INP/OBS CARE 3/50MIN Patient Type Established History Comprehensive Exam Comprehensive Medical Decision Making High Complexity Diagnoses Opioid-induced constipation K59.03; T40.2X5A Cancer related pain G89.3 Anxiety associated with cancer diagnosis F41.1; C80.1 Acute generalized abdominal pain R10.84 Dyspnea and respiratory abnormalities R06.00; R06.89 Weakness generalized R53.1 Palliative care by specialist Z51.5 Primary lung squamous cell carcinoma C34.90
[2024-11-28] MEDS: DOXYCYCLINE HYCLATE 100 MG CAP PO SCH (22:03)
[2024-11-28] MEDS: DICLOFENAC SOD 1% GEL 100 GM TUBE EXT SCH (22:03)
[2024-11-29 06:13] LABS: Hematocrit (blood only) 37.2 % (37.0-47.0); Hemoglobin 12.7 g/dl (12.0-16.0); Mean Corpuscular Hemoglobin 30.2 pg (25.0-34.0); Mean Corpuscular Hgb Conc 34.1 g/dL (32.0-36.0); Mean Corpuscular Volume 88.6 fL (80.0-100.0); Mean Platelet Volume 9.6 fL (9.4-12.4); Platelet Count 315 K/uL (130-400); RDW Coefficient of Variation 13.2 % (11.5-14.5); RDW Standard Deviation 42.7 fL (36.4-46.3); White Blood Count 11.09 K/ul (4.8-10.8)
[2024-11-29 06:27] LABS: BUN Creatinine Ratio 13.8 (10-20); Calcium 8.5 mg/dl (8.6-10.3); Creatinine Clr Calc Pharmacy 75.4 ml/min; Magnesium 1.8 mg/dl (1.7-2.4); Phosphorus 4.3 mg/dl (2.5-4.9)
[2024-11-29 06:41] LABS: ANTI-Xa, UFH(UnfractionatedHep 0.24 IU/ml (0.3-0.7); INR 2.8 (0.9-1.1); Prothrombin Time 27.9 Seconds (9.0-12.0)
--- NOTE | 2024-11-29 10:00 | CT Scan Report ---
CT ankle LT wo con CLINICAL HISTORY: Left ankle pain and swelling. COMPARISON STUDY: Left ankle radiographs November 28, 2024. TECHNIQUE: Axial images of the left ankle were obtained without IV contrast. Sagittal and coronal ref ormats were viewed. Automated exposure control was utilized for the study. A dose lowering technique was utilized adhering to the principles of ALARA. FINDINGS: Left ankle soft tissue swelling is present. No fluid collections are identified on unenhanc ed exam. Alignment of the left ankle is anatomic. No acute fractures are identified. Talar dome is in tact. There are no osseous lesions. Os trigonum is incidentally noted. Multiple small ossific/calcifi c densities within the posterior tibiotalar joint are present. Small ossific densities along the fibu lar tip and medial malleolus are chronic. IMPRESSION: 1. No acute fractures within the left ankle. 2. Left ankle soft tissue swelling. 3. Multiple ossific/calcific densities within the posterior tibiotalar joint which could reflect join t bodies or chondrocalcinosis. ACT 112: Negative or not required by law. Electronically signed by: Arsen Dominguez M.D. 11/29/2024 9:58 AM
[2024-11-29 13:49] LABS: ANTI-Xa, UFH(UnfractionatedHep < 0.10 IU/ml (0.3-0.7)
[2024-11-29] MEDS: LIDOCAINE 1% LOCAL 20 ML VIAL ONE (14:38)
--- NOTE | 2024-11-29 15:01 | Orthopedic Consultation ---
Date of Consultation November 29, 2024 Assessment & Plan (1) Left ankle swelling: The patient was evaluated in her room. Aspiration of her ankle was recommended. Risks and benefits were discussed with the patient. Verbal consent was obtained. Aspiration was performed by Dr. Galicia. Cloudy yellow joint fluid was obtained. This was sent for culture, crystals, and cell count. Hemostasis was achieved with a Band-Aid. Continue with ice and elevation of the ankles until culture results are known. Due to her anticoagulation, NSAIDs would be contraindicated. Continue with IV and oral pain medication as previously ordered by the hospitalist team. History of Present Illness Reason for Consultation: Left ankle pain/right dorsal foot pain Attending Physician: Aureliano Sumner MD History of Present Illness this 69-year-old female with a history of small cell lung cancer pleural effusion, dyspnea, shortness of breath, anxiety, diverticulitis, lumbar radiculopathy, lumbar listhesis, DVT, osteoarthritis, gout, pseudogout, GERD, elevated lipids, A-fib, asthma pain and hypertension, is seen today for evaluation of her left ankle and right dorsal foot. The patient was admitted a few days ago for increased shortness of breath due to pleural effusion related to her lung cancer. She states her memory is a little fuzzy, but believes she developed severe left ankle pain within the last 2 days. She is sure that it was not present upon admission through the ED. She denies any trauma. She has only been doing transfers from bed to bedside commode. Her ankle pain last evening was severe. She states the ankle was red and became swollen. Regular radiographic imaging and CT imaging of the lower extremity was obtained. She states that this morning she developed redness and pain over the dorsum of her right foot that is similar to the left ankle. She denies any numbness or tingling. She denies any recent fevers. She states she has had some chills while in the hospital, but denies any sweats. Pain is worse with motion. She is having difficulty moving her toes secondary to the pain in the ankle and fo ot. No other areas of involvement. She has a distant history of pseudogout in her elbow and remembers it feeling similar. No recent flares of gout or pseudogout. She is unsure of any recent dehydration episodes. She has not been able to bear weight since the onset of her symptoms. She is currently on heparin and warfarin due to a left leg DVT diagnosed 11/26/2024. Allergies Allergy/AdvReac Type Severity Reaction Status Date / Time losartan Allergy Severe SWELLING Verified 11/25/24 17:40 OF FACE, LIPS & TONGUE Penicillins Allergy Severe SWELLING Verified 11/25/24 17:40 OF FACE, LIPS & TONGUE fentanyl Allergy Intermediate itching Verified 11/25/24 17:40 oxycodone Allergy Intermediate ITCHING Verified 11/25/24 17:40 ALL OVER tramadol AdvReac Severe Hallucinati Verified 11/25/24 17:40 ons Sulfa (Sulfonamide AdvReac Intermediate URNIARY Verified 11/25/24 17:40 Antibiotics) FREQUENCY sulfamethoxazole AdvReac Intermediate URNIARY Verified 11/25/24 17:40 FREQUENCY topiramate AdvReac Intermediate Blurry Verified 11/25/24 17:40 Vision metronidazole AdvReac Mild STOMACH Verified 11/25/24 17:40 PAIN trimethoprim AdvReac Mild URINARY Verified 11/25/24 17:40 FREQUENCY Home Medications Medication Instructions Recorded Confirmed Type acyclovir 400 mg tablet 400 mg PO TID PRN Cold Sore(s) 08/22/18 11/25/24 History albuterol sulfate 90 mcg/actuation 2 puff inhalation Q4H PRN Wheezing 08/22/18 11/25/24 History aerosol inhaler (Ventolin HFA) levothyroxine 100 mcg tablet 100 mcg PO DAILYBB 08/22/18 11/25/24 History alirocumab 75 mg/mL subcutaneous 75 mg subcut Q14D 09/19/23 11/25/24 History pen injector (Praluent Pen) aspirin 81 mg tablet,delayed 81 mg PO DAILY 09/19/23 11/25/24 History release cholecalciferol (vitamin D3) 25 25 mcg PO DAILY 09/19/23 11/25/24 History mcg (1,000 unit) capsule famotidine 20 mg tablet 20 mg PO BID 09/19/23 11/25/24 History ipratropium 0.5 mg-albuterol 3 mg 3 ml inhalation Q6H PRN Wheezing 09/19/23 11/25/24 History (2.5 mg base)/3 mL nebulization soln lorazepam 0.5 mg tablet (Ativan) 0.5 mg PO Q6H PRN anxiety, 09/08/24 11/25/24 History insomnia, nausea from cancer osimertinib 80 mg tablet (Tagrisso) 80 mg PO PM 09/08/24 11/25/24 History zolpidem 10 mg tablet 10 mg PO HS 09/08/24 11/25/24 History lidocaine 4 % topical patch 1 patch topical DAILY PRN pain #30 09/10/24 11/25/24 Rx ea baclofen 10 mg tablet 20 mg PO BID 09/11/24 11/25/24 History prochlorperazine maleate 10 mg 10 mg PO DAILY PRN Nausea And 09/11/24 11/25/24 History tablet Vomiting lisinopril 20 mg tablet 10 mg PO DAILY 09/25/24 11/25/24 History hydromorphone 4 mg tablet 4 mg PO Q4H PRN pain 1 month #90 11/06/24 11/25/24 Rx (Dilaudid) tabs docusate sodium 100 mg capsule 100 mg PO BID PRN Constipation 11/25/24 11/25/24 History guaifenesin 600 mg tablet, 600 mg PO BID PRN chest congestion 11/25/24 11/25/24 History extended release 12 hr (Mucinex) morphine 15 mg tablet,extended 15 - 30 mg PO Q12H cancer pain and 11/25/24 11/25/24 History release (MS Contin) dyspnea ondansetron HCl 8 mg tablet 8 mg PO Q6H PRN Nausea And Vomiting 11/25/24 11/25/24 History polyethylene glycol 3350 17 gram 17 g PO DAILY PRN Constipation 11/25/24 11/25/24 History oral powder packet (Miralax) Patient History Medical History Incomplete rotator cuff tear or rupture of left shoulder, not specified as traumatic Encounter for pre-operative examination Intractable back pain Compression fracture of T12 vertebra Prediabetes RECENT NEW SCRIPT FOR METFORMIN Hx of Clostridium difficile infection APPROX 5 YRS AGO Hx of discitis treated at [facility] (2019) Hx of deep venous thrombosis ~2019 Pulmonary embolism hx of 2006 Pseudogout Hypothyroidism Chronic back pain Osteoarthritis Abdominal hernia no surgery Peripheral neuropathy Migraine hx Chronic obstructive pulmonary disease mild Sleep apnea NO MACHINE Surgical History History of right cataract surgery SEP 2020 History of anesthesia reaction EXTREMELY SLOW TO WAKE UP (COLON RESECTION) History of dilatation and curettage History of total abdominal hysterectomy and bilateral salpingo-oophorectomy History of carpal tunnel release RT History of bunionectomy RT FOOT History of appendectomy History of esophagogastroduodenoscopy (EGD) History of colonoscopy History of tooth extraction History of tonsillectomy History of adenoidectomy S/P ablation of atrial fibrillation ~2014 Family History Mother Family history of esophageal cancer Hearing loss Father Hearing loss Brother Hearing loss Other Cancer Gallbladder disease Heart disease Hypertension Lung disease No family history of adverse response to anesthesia No family history of bleeding disorder Stroke Social History Smoking Status: Former smoker Tobacco Type: Cigarettes Second Hand Exposure: No; Do You Dip or Chew Tobacco: No; Hx Alcohol Use: No Hx Substance Use: No Preferred Language: Bulgarian Communication Ability: Effective Nuisance Wildlife Specialist Required: No Beliefs That Will Affect Care: None Current Living Situation: Alone current occupational status: retired Feels Safe at Home: Yes Assistive Devices: None Review of Systems Review of Systems: All systems reviewed & are unremarkable except as noted in HPI & below Physical Exam 2 Physical Exam: General: Well-developed, well-nourished, elderly female, in no acute distress. Laying in bed. Alert and oriented. Conversive. Skin: Warm and dry with good turgor. No rashes. She has visible edema at her left ankle as well as the dorsum of her right foot. She has erythema in these areas as well. Erythema is medial and lateral. No open wounds on her lower extremities. Erythemic areas are significantly warm to touch. They are also very tender to touch. 1+ pitting edema in the pretibial left lower extremity. Musculoskeletal: The patient has intact flexion extension of both knees. She has intact motor function of the right ankle and toes. She is able to plantarflex and dorsiflex with encouragement. She does have a second hammertoe. There is no pain with palpation over her Achilles, ankle, calcaneus, or plantar surface of her foot. There is discomfort with palpation over the dorsum of her midfoot as well as on the plantar surface of her metatarsal heads. Evaluation of her left lower extremity reveals no pain with palpation over the midshaft of the lower leg. She has exquisite discomfort with palpation over the medial and lateral aspects of her left ankle. There is no pain with palpation over the Achilles, calcaneus, midfoot, forefoot, or toes. Motor function of the left ankle is limited secondary to pain. She does have intact motor function of her toes, though this is also limited secondary to ankle discomfort. Neurologic: Gross sensation is intact across all aspects of both lower extremities by soft touch. Sensation is present to the lower legs, ankles, and feet. Peripheral pulses are 2+ for both dorsalis pedis and tibialis posterior. Results & Data Vital Signs (Past 12 Hours) Vital Signs Temp Pulse Pulse Resp BP BP Pulse Ox 11/29/24 11:28 37.5 C 97 H 18 103/60 92 11/29/24 08:07 37.3 C 95 H 18 120/80 94 11/29/24 07:36 94 H 16 93 11/29/24 07:32 92 H 11/29/24 03:05 37.4 C 103 H 18 115/70 92 O2 Del Method O2 Flow Rate 11/29/24 11:28 Nasal Cannula 2 11/29/24 08:07 Nasal Cannula 1 11/29/24 07:36 Nasal Cannula 2 11/29/24 07:32 11/29/24 03:05 Nasal Cannula 1 Laboratory Results CBC obtained this morning shows a white count of 11.09. Yesterday was 8.36. INR is therapeutic this morning at 2.8. Diagnostic Findings Radiographic imaging obtained yesterday of the left ankle was unremarkable. CT scan imaging of the left lower extremity obtained this morning shows soft tissue swelling and is otherwise unremarkable.
[2024-11-29] MEDS: WARFARIN SOD 2 MG TAB PO SCH (15:12)
[2024-11-29 15:32] LABS: Appearance Synovial Fluid Cloudy; Color Synovial Fluid Pale Yellow; Mononuclear WBC Synovial 7.9 %; Polynuclear WBC Synovial 92.1 %; RBC Synovial Fluid Auto < 2000 /uL; Source Synovial Fluid Other; WBC Synovial Fluid Auto 32440 /ul (0-200)
[2024-11-29] MEDS: predniSONE 50 MG TAB PO SCH (16:31)
--- NOTE | 2024-11-29 18:45 | Hospitalist Progress Note ---
Date of Service November 29, 2024 Assessment & Plan (1) Pleural effusion: (2) Small cell lung cancer, left upper lobe: Plan: 69-year-old female with history of metastatic lung cancer, asthma, etc. presenting with shortness of breath times few days. Left-sided pleural effusion Metastatic lung cancer Status post pigtail insertion by Dr. Davis Follow-up fluid studies Currently taking Tagrisso oral chemo Per pulmonary med (Dr. Davis) - removed chest tube (11/27/2023) Continue with BiPAP nightly and as needed shortness of breath Overall prognosis is poor Abdominal pain - resolved - left upper quadrant - KUB obtained - Gas distended colon in the left abdomen may represent ileus. - after Chest tube removal pt says abd. pain resolved, she is passing gas now, but no BM yet. cont. bowel regimen Acute LE DVT Doppler obtained - deep venous thrombosis in a left posterior tibial vein Started on IV heparin - stop now as INR therapeutic - started coumadin, continue L ankle pain - tender to palp. - XR obtained - negative for fx -CT L ankle ordered overnight - will consult w/ orthopedics Chronic cough, likely mod persistent asthma -Perforomist, budesonide ordered History of PE: Patient reports history of PE in 2001 postoperatively. Patient reports she was on coumadin before. Not on any blood thinner currently. PCP follow-up Other chronic medical condition: HTN, HLD, hypothyroidism etc. ---> continue with/resume home meds as when able. Hold lisinopril for now, BP on lower side DVT prophylaxis - warfarin DNR as per patient Disposition Lives with family at home Admission and Anticipated Discharge Date Admission Date: November 25, 2024 Subjective Pt seen in follow up of L pl. effusion, hx of squamous cell lung ca. S/p pigtail chest tube placement Chest tube removed Reports pain in chest and abdomen now much improved/ resolved She is passing flatus but no BM yet breathing overall improved but pt is on suppl. O2 Reports new L ankle pain - XR Pulmonary medicine consulted and following Contacted by palliative med . - Dr. Bertrand as she follows the pt in clinic - follow up with the pt inpt. Review of Systems Review of Systems: All systems reviewed & are unremarkable except as noted in Subjective Physical Exam Physical Exam: General- oriented x 3, not in distress, speaks in sentences with no effort or accessory muscle use Head- atraumatic Eyes- PERRL, EOMI, anicteric Neck- supple Lungs- CTAB, chest tube removed minimal basilar crackles b/l No wheezing Heart- normal rate, regular rhythm; no murmur Abdomen- normal bowel sounds, nondistended, soft, mildly tender at left upper quadrant Extremities- mild LLE edema, L ankle tender to palpation Neuro- alert, oriented x 3; speech fluent, no facial asymmetry, answers appropriately, moves extremities Skin- warm & dry Results & Data Results & Data Vital Signs (Past 12 Hours) Vital Signs Temp Pulse Pulse Resp BP Pulse Ox O2 Del Method 11/29/24 16:29 37.5 C 93 H 18 97 Nasal Cannula 11/29/24 14:47 98 H 11/29/24 11:28 37.5 C 97 H 18 103/60 92 Nasal Cannula 11/29/24 08:07 37.3 C 95 H 18 120/80 94 Nasal Cannula 11/29/24 07:36 94 H 16 93 Nasal Cannula 11/29/24 07:32 92 H O2 Flow Rate 11/29/24 16:29 1 11/29/24 14:47 11/29/24 11:28 2 11/29/24 08:07 1 11/29/24 07:36 2 11/29/24 07:32 Laboratory Results 11/29/24 11/29/24 11/29/24 Range/Units Unknown 12:48 05:39 WBC 11.09 H (4.8-10.8) K/ul RBC 4.20 (4.20-5.40) M/uL Hgb 12.7 (12.0-16.0) g/dl Hct 37.2 (37.0-47.0) % MCV 88.6 (80.0-100.0) fL MCH 30.2 (25.0-34.0) pg MCHC 34.1 (32.0-36.0) g/dL RDW Std Deviation 42.7 (36.4-46.3) fL RDW Coeff of Viky 13.2 (11.5-14.5) % Plt Count 315 (130-400) K/uL MPV 9.6 (9.4-12.4) fL PT 27.9 H (9.0-12.0) Seconds INR 2.8 H (0.9-1.1) Heparin Anti-Xa, Unfract < 0.10 L 0.24 L (0.3-0.7) IU/ml Sodium 133 L (136-145) mmol/L Potassium 4.0 (3.5-5.1) mmol/L Chloride 96 L (98-107) mmol/L Carbon Dioxide 30 (21-32) mmol/L Anion Gap 7 (3-11) BUN 9 (6-23) mg/dl Creatinine 0.65 (0.6-1.2) mg/dl Est Cr Clr Drug Dosing 75.4 ml/min eGFR 94.07 BUN/Creatinine Ratio 13.8 (10-20) Glucose 112 H (70-99(Fasting)) mg/dl Calcium 8.5 L (8.6-10.3) mg/dl Phosphorus 4.3 (2.5-4.9) mg/dl Magnesium 1.8 (1.7-2.4) mg/dl Fluid Comment Synovial Source Other Synovial Color Pale Yellow Synovial Appearance Cloudy Synovial WBC (Auto) 76415 H (0-200) /ul Synovial RBC (Auto) < 2000 /uL Synovial Polynuclear % 92.1 % Synovial Mononuclear % 7.9 % Synovial Crystals Pending Medications Administered Current Inpatient Medications Acetaminophen (Acetaminophen 325 Mg Tab) 650 mg PO Q4H PRN PRN Reason: Pain or Fever Stop: 12/25/24 16:34 Last Admin: 11/26/24 22:02 Dose: 650 mg Baclofen (Baclofen 20 Mg Tab) 20 mg PO BID [facility] Stop: 12/26/24 08:59 Last Admin: 11/29/24 08:16 Dose: 20 mg Budesonide (Budesonide 0.5 Mg/2 Ml Vial (Pulmicort)) 0.5 mg NEB BIDR [facility] Stop: 12/25/24 18:59 Last Admin: 11/29/24 07:36 Dose: 0.5 mg Diclofenac Sodium (Diclofenac Sod 1% Gel 100 Gm Tube) 4 gm EXT BID [facility]; Protocol Stop: 12/28/24 20:59 Last Admin: 11/29/24 08:16 Dose: 4 gm Docusate Sodium (Docusate Sodium 100 Mg Cap) 100 mg PO BID PRN PRN Reason: Constipation Stop: 12/25/24 23:27 Last Admin: 11/29/24 08:16 Dose: 100 mg Doxycycline Hyclate (Doxycycline Hyclate 100 Mg Cap) 100 mg PO BID [facility] Stop: 12/03/24 20:59 Last Admin: 11/29/24 08:15 Dose: 100 mg Famotidine (Famotidine 20 Mg Tab) 20 mg PO BID [facility] Stop: 12/26/24 08:59 Last Admin: 11/29/24 08:16 Dose: 20 mg Formoterol Fumarate (Formoterol 20 Mcg/2 Ml Vial) 20 mcg INH BIDR [facility] Stop: 12/25/24 18:59 Last Admin: 11/29/24 07:36 Dose: 20 mcg Guaifenesin (Guaifenesin 600 Mg Tabcr) 600 mg PO BID PRN PRN Reason: chest congestion Stop: 12/25/24 23:27 Last Admin: 11/29/24 08:15 Dose: 600 mg Hydromorphone HCl (Hydromorphone Inj 0.5 Mg/0.5 Ml Syr) 1.2 mg IV Q4H PRN PRN Reason: MODERATE TO SEVERE PAIN Stop: 12/09/24 17:12 Last Admin: 11/29/24 11:15 Dose: 1.2 mg Levothyroxine Sodium (Levothyroxine Sodium 100 Mcg Tablet) 100 mcg PO DAILYBB [facility] Stop: 12/28/24 06:29 Last Admin: 11/29/24 06:02 Dose: 100 mcg Lidocaine (Lidocaine 5% 1 Patch) 1 patch TD DAILY [facility] Stop: 12/26/24 08:59 Last Admin: 11/29/24 08:15 Dose: 1 patch Lisinopril (Lisinopril 10 Mg Tab) 10 mg PO DAILY [facility] Stop: 12/26/24 08:59 Last Admin: 11/26/24 07:40 Dose: 10 mg Lorazepam (Lorazepam 2 Mg/1 Ml Vial) 0.5 mg IV Q8H PRN PRN Reason: Anxiety/Agitation Stop: 12/27/24 13:30 Last Admin: 11/27/24 13:58 Dose: 0.5 mg Magnesium Oxide (Magnesium Oxide 400 Mg Tab) 400 mg PO BID [facility] Stop: 12/28/24 11:29 Last Admin: 11/29/24 08:15 Dose: 400 mg Miscellaneous (Remove Lidoderm Patch) 1 each N/A DAILY@2100 [facility] Stop: 12/25/24 20:59 Last Admin: 11/28/24 22:04 Dose: 1 each Morphine Sulfate (Morphine Sulfate Cr 15 Mg Tabcr) 15 mg PO Q8H [facility] Stop: 12/11/24 13:29 Last Admin: 11/29/24 14:24 Dose: 15 mg Osimertinib (Osimertinib Mesylate) 1 each PO PM [facility] Stop: 12/26/24 23:44 Last Admin: 11/28/24 22:02 Dose: 1 each Polyethylene Glycol (Polyethylene (Miralax) 17 Gm Pack) 17 gm PO DAILY PRN PRN Reason: Constipation Stop: 12/25/24 23:27 Last Admin: 11/29/24 08:17 Dose: 17 gm Prednisone (Prednisone 50 Mg Tab) 50 mg PO QAM [facility] Stop: 12/29/24 15:14 Last Admin: 11/29/24 16:31 Dose: 50 mg Senna/Docusate Sodium (Docusate Sodium/Senna 50/8.6mg Tab) 2 tab PO BID [facility] Stop: 12/27/24 20:59 Last Admin: 11/29/24 08:16 Dose: 2 tab Vitamin D (Cholecalciferol 25 Mcg (1000 Units) Tab) 25 mcg PO DAILY [facility] Stop: 12/26/24 08:59 Last Admin: 11/29/24 08:16 Dose: 25 mcg Warfarin Sodium (Warfarin Sod 2 Mg Tab) 2 mg PO DAILY@1600 [facility] Stop: 12/29/24 15:59 Last Admin: 11/29/24 15:12 Dose: 2 mg Zolpidem Tartrate (Zolpidem Tartrate 5 Mg Tab) 10 mg PO HS PRN PRN Reason: insomnia Stop: 12/25/24 23:04 Last Admin: 11/29/24 02:01 Dose: 10 mg
[2024-11-30 07:29] LABS: Hematocrit (blood only) 38.1 % (37.0-47.0); Mean Corpuscular Hgb Conc 34.1 g/dL (32.0-36.0); Mean Corpuscular Volume 87.8 fL (80.0-100.0); Mean Platelet Volume 9.6 fL (9.4-12.4); Platelet Count 331 K/uL (130-400); RDW Coefficient of Variation 12.7 % (11.5-14.5); RDW Standard Deviation 41.3 fL (36.4-46.3); Red Blood Count 4.34 M/uL (4.20-5.40); White Blood Count 8.63 K/ul (4.8-10.8)
[2024-11-30 07:50] LABS: BUN Creatinine Ratio 25.5 (10-20); Calcium 9.1 mg/dl (8.6-10.3); Creatinine Clr Calc Pharmacy 94.3 ml/min; Magnesium 2.1 mg/dl (1.7-2.4); Phosphorus 4.4 mg/dl (2.5-4.9); Potassium 4.3 mmol/L (3.5-5.1)
[2024-11-30 07:51] LABS: INR 4.3 (0.9-1.1); Prothrombin Time 40.8 Seconds (9.0-12.0)
--- NOTE | 2024-11-30 09:10 | Hospitalist Progress Note ---
Date of Service November 30, 2024 Assessment & Plan (1) Pleural effusion: (2) Small cell lung cancer, left upper lobe: Plan: 69-year-old female with history of Non-small cell lung ca c/w adenocarcinoma (per review of records in [facility] - outpt, onc. Dr. Simmons) metastatic lung cancer, asthma, etc. presenting with shortness of breath times few days. Left-sided pleural effusion Metastatic lung cancer Status post pigtail insertion by Dr. Davis Fluid studies c/w adenocarcinoma Currently taking Tagrisso oral chemo Per pulmonary med (Dr. Davis) - removed chest tube (11/27/2023) Continue with BiPAP nightly and as needed shortness of breath Overall prognosis is poor Abdominal pain - resolved - left upper quadrant - KUB obtained - Gas distended colon in the left abdomen may represent ileus. - after Chest tube removal pt says abd. pain resolved, she is passing gas now, but no BM yet. cont. bowel regimen Acute LE DVT Doppler obtained - deep venous thrombosis in a left posterior tibial vein Started on IV heparin - stopped now as INR therapeutic - started coumadin, hold today for INR 4.3 L ankle pain - tender to palp. - XR obtained - negative for fx -CT L ankle obtained - 1. No acute fractures within the left ankle. 2. Left ankle soft tissue swelling. 3. Multiple ossific/calcific densities within the posterior tibiotalar joint which could reflect joint bodies or chondrocalcinosis. - Orthopedics consulted and discussed with. Pt s/p aspiration of L ankle yesterday (11/29/2023). Ortho recommended to start prednisone for poss. gout vs pseudogout, and this was started yesterday. Pt reports pain is much improved today. Chronic cough, likely mod persistent asthma -Perforomist, budesonide ordered History of PE: Patient reports history of PE in 2001 postoperatively. Patient reports she was on coumadin before. Other chronic medical condition: HTN, HLD, hypothyroidism etc. ---> continue with/resume home meds as when able. Hold lisinopril for now, BP on lower side DVT prophylaxis - warfarin DNR as per patient Disposition Lives with family at home Admission and Anticipated Discharge Date Admission Date: November 25, 2024 Subjective Pt seen in follow up of L pl. effusion, hx of squamous cell lung ca. S/p pigtail chest tube placement Chest tube removed Reports pain in chest and abdomen now much improved/ resolved She is passing flatus but no BM yet breathing overall improved but pt is on suppl. O2 Reports new L ankle pain - XR, CT obtained, ortho consulted, s/p aspiration of L ankle. Discussed w/ ortho yesterday and started steroid. Pt says pain is much improved today, and she can walk now again. Pulmonary medicine consulted and following Contacted by palliative med . - Dr. Bertrand as she follows the pt in clinic - follow up with the pt inpt. Review of Systems Review of Systems: All systems reviewed & are unremarkable except as noted in Subjective Physical Exam Physical Exam: General- oriented x 3, not in distress, speaks in sentences with no effort or accessory muscle use Head- atraumatic Eyes- PERRL, EOMI, anicteric Neck- supple Lungs- CTAB, chest tube removed minimal basilar crackles b/l No wheezing Heart- normal rate, regular rhythm; no murmur Abdomen- normal bowel sounds, nondistended, soft, mildly tender at left upper quadrant Extremities- mild LLE edema, L ankle tender to palpation - improved from previous exam Neuro- alert, oriented x 3; speech fluent, no facial asymmetry, answers appropriately, moves extremities Skin- warm & dry Results & Data Results & Data Vital Signs (Past 12 Hours) Vital Signs Temp Pulse Pulse Resp BP BP Pulse Ox 11/30/24 08:02 36.3 C L 69 16 96/64 L 97 11/30/24 07:36 76 18 94 11/30/24 03:00 36.3 C L 71 16 118/78 94 11/30/24 00:40 85 11/29/24 23:15 36.7 C 82 16 119/76 95 O2 Del Method O2 Flow Rate 11/30/24 08:02 Nasal Cannula 1 11/30/24 07:36 Nasal Cannula 2 11/30/24 03:00 Nasal Cannula 1 11/30/24 00:40 11/29/24 23:15 Nasal Cannula 1 Laboratory Results 11/30/24 11/29/24 11/29/24 Range/Units 06:35 Unknown 12:48 WBC 8.63 (4.8-10.8) K/ul RBC 4.34 (4.20-5.40) M/uL Hgb 13.0 (12.0-16.0) g/dl Hct 38.1 (37.0-47.0) % MCV 87.8 (80.0-100.0) fL MCH 30.0 (25.0-34.0) pg MCHC 34.1 (32.0-36.0) g/dL RDW Std Deviation 41.3 (36.4-46.3) fL RDW Coeff of Viky 12.7 (11.5-14.5) % Plt Count 331 (130-400) K/uL MPV 9.6 (9.4-12.4) fL PT 40.8 H (9.0-12.0) Seconds INR 4.3 H (0.9-1.1) Heparin Anti-Xa, Unfract < 0.10 L (0.3-0.7) IU/ml Sodium 134 L (136-145) mmol/L Potassium 4.3 (3.5-5.1) mmol/L Chloride 98 (98-107) mmol/L Carbon Dioxide 30 (21-32) mmol/L Anion Gap 6 (3-11) BUN 13 (6-23) mg/dl Creatinine 0.51 L (0.6-1.2) mg/dl Est Cr Clr Drug Dosing 94.3 ml/min eGFR 99.73 BUN/Creatinine Ratio 25.5 H (10-20) Glucose 138 H (70-99(Fasting)) mg/dl Calcium 9.1 (8.6-10.3) mg/dl Phosphorus 4.4 (2.5-4.9) mg/dl Magnesium 2.1 (1.7-2.4) mg/dl Fluid Comment Synovial Source Other Synovial Color Pale Yellow Synovial Appearance Cloudy Synovial WBC (Auto) 76187 H (0-200) /ul Synovial RBC (Auto) < 2000 /uL Synovial Polynuclear % 92.1 % Synovial Mononuclear % 7.9 % Synovial Crystals Pending Medications Administered Current Inpatient Medications Acetaminophen (Acetaminophen 325 Mg Tab) 650 mg PO Q4H PRN PRN Reason: Pain or Fever Stop: 12/25/24 16:34 Last Admin: 11/26/24 22:02 Dose: 650 mg Baclofen (Baclofen 20 Mg Tab) 20 mg PO BID [facility] Stop: 12/26/24 08:59 Last Admin: 11/30/24 08:56 Dose: 20 mg Budesonide (Budesonide 0.5 Mg/2 Ml Vial (Pulmicort)) 0.5 mg NEB BIDR [facility] Stop: 12/25/24 18:59 Last Admin: 11/30/24 07:36 Dose: 0.5 mg Diclofenac Sodium (Diclofenac Sod 1% Gel 100 Gm Tube) 4 gm EXT BID [facility]; Protocol Stop: 12/28/24 20:59 Last Admin: 11/30/24 08:56 Dose: 4 gm Docusate Sodium (Docusate Sodium 100 Mg Cap) 100 mg PO BID PRN PRN Reason: Constipation Stop: 12/25/24 23:27 Last Admin: 11/30/24 08:55 Dose: 100 mg Doxycycline Hyclate (Doxycycline Hyclate 100 Mg Cap) 100 mg PO BID [facility] Stop: 12/03/24 20:59 Last Admin: 11/30/24 08:56 Dose: 100 mg Famotidine (Famotidine 20 Mg Tab) 20 mg PO BID [facility] Stop: 12/26/24 08:59 Last Admin: 11/30/24 08:56 Dose: 20 mg Formoterol Fumarate (Formoterol 20 Mcg/2 Ml Vial) 20 mcg INH BIDR [facility] Stop: 12/25/24 18:59 Last Admin: 11/30/24 07:36 Dose: 20 mcg Guaifenesin (Guaifenesin 600 Mg Tabcr) 600 mg PO BID PRN PRN Reason: chest congestion Stop: 12/25/24 23:27 Last Admin: 11/30/24 09:00 Dose: 600 mg Hydromorphone HCl (Hydromorphone Inj 0.5 Mg/0.5 Ml Syr) 1.2 mg IV Q4H PRN PRN Reason: MODERATE TO SEVERE PAIN Stop: 12/09/24 17:12 Last Admin: 11/29/24 11:15 Dose: 1.2 mg Levothyroxine Sodium (Levothyroxine Sodium 100 Mcg Tablet) 100 mcg PO DAILYBB [facility] Stop: 12/28/24 06:29 Last Admin: 11/30/24 06:00 Dose: 100 mcg Lidocaine (Lidocaine 5% 1 Patch) 1 patch TD DAILY [facility] Stop: 12/26/24 08:59 Last Admin: 11/30/24 08:57 Dose: 1 patch Lisinopril (Lisinopril 10 Mg Tab) 10 mg PO DAILY [facility] Stop: 12/26/24 08:59 Last Admin: 11/26/24 07:40 Dose: 10 mg Lorazepam (Lorazepam 2 Mg/1 Ml Vial) 0.5 mg IV Q8H PRN PRN Reason: Anxiety/Agitation Stop: 12/27/24 13:30 Last Admin: 11/27/24 13:58 Dose: 0.5 mg Magnesium Oxide (Magnesium Oxide 400 Mg Tab) 400 mg PO BID [facility] Stop: 12/28/24 11:29 Last Admin: 11/30/24 08:56 Dose: 400 mg Miscellaneous (Remove Lidoderm Patch) 1 each N/A DAILY@2100 [facility] Stop: 12/25/24 20:59 Last Admin: 11/29/24 20:54 Dose: 1 each Morphine Sulfate (Morphine Sulfate Cr 15 Mg Tabcr) 15 mg PO Q8H [facility] Stop: 12/11/24 13:29 Last Admin: 11/30/24 06:00 Dose: 15 mg Osimertinib (Osimertinib Mesylate) 1 each PO PM [facility] Stop: 12/26/24 23:44 Last Admin: 11/29/24 20:54 Dose: 1 each Polyethylene Glycol (Polyethylene (Miralax) 17 Gm Pack) 17 gm PO DAILY PRN PRN Reason: Constipation Stop: 12/25/24 23:27 Last Admin: 11/30/24 08:55 Dose: 17 gm Prednisone (Prednisone 50 Mg Tab) 50 mg PO QAM [facility] Stop: 12/29/24 15:14 Last Admin: 11/30/24 08:57 Dose: 50 mg Senna/Docusate Sodium (Docusate Sodium/Senna 50/8.6mg Tab) 2 tab PO BID [facility] Stop: 12/27/24 20:59 Last Admin: 11/30/24 08:55 Dose: 2 tab Vitamin D (Cholecalciferol 25 Mcg (1000 Units) Tab) 25 mcg PO DAILY [facility] Stop: 12/26/24 08:59 Last Admin: 11/30/24 08:56 Dose: 25 mcg Warfarin Sodium (Warfarin Sod 2 Mg Tab) 2 mg PO DAILY@1600 [facility] Stop: 12/29/24 15:59 Last Admin: 11/29/24 15:12 Dose: 2 mg Zolpidem Tartrate (Zolpidem Tartrate 5 Mg Tab) 10 mg PO HS PRN PRN Reason: insomnia Stop: 12/25/24 23:04 Last Admin: 11/29/24 20:53 Dose: 10 mg
--- NOTE | 2024-11-30 13:01 | Orthopedic Progress Note ---
Date of Service November 30, 2024 Assessment & Plan (1) Left ankle swelling: Plan: Improved. She is currently on steroids which likely have helped. Suspect inflammatory arthropathy such as gout or pseudogout. Crystals would not be read till tomorrow. The cell count within the fluid was 33,000. Consistent with inflammation. Culture is no growth to date with a negative Gram stain. She does not need any antibiotics and does not need surgery. Continue steroids. Follow-up on the culture and crystal analysis. Admission and Anticipated Discharge Date Admission Date: November 25, 2024 Subjective Much improved. Pain much better. Able to get out of bed and bear weight. Physical Exam Physical Exam: Capillary fill less than 2 seconds. She can wiggle her toes move her ankle up and down much better. Her strength is 5 out of 5. She has a very good but probably not normal range of motion. The redness has left both ankles. The right ankle is not tender. The left ankle is tender laterally but not anterior or medial. There is still some swelling but probably improved as well. Results & Data Vital Signs (Past 12 Hours) Vital Signs Temp Pulse Pulse Resp BP BP Pulse Ox 11/30/24 11:38 36.9 C 86 18 112/74 93 11/30/24 10:52 64 11/30/24 10:52 11/30/24 08:02 36.3 C L 69 16 96/64 L 97 11/30/24 07:36 76 18 94 11/30/24 03:00 36.3 C L 71 16 118/78 94 O2 Del Method O2 Flow Rate 11/30/24 11:38 Nasal Cannula 1 11/30/24 10:52 11/30/24 10:52 Nasal Cannula 2 11/30/24 08:02 Nasal Cannula 1 11/30/24 07:36 Nasal Cannula 2 11/30/24 03:00 Nasal Cannula 1 Laboratory Results Laboratory Results WBC 8.63 K/ul (4.8-10.8) 11/30/24 06:35 RBC 4.34 M/uL (4.20-5.40) 11/30/24 06:35 Hgb 13.0 g/dl (12.0-16.0) 11/30/24 06:35 POC Hgb 15.0 g/dl (12.0-16.0) 11/25/24 13:57 Hct 38.1 % (37.0-47.0) 11/30/24 06:35 POC Hct 44 % (37-47) 11/25/24 13:57 MCV 87.8 fL (80.0-100.0) 11/30/24 06:35 MCH 30.0 pg (25.0-34.0) 11/30/24 06:35 MCHC 34.1 g/dL (32.0-36.0) 11/30/24 06:35 RDW Std Deviation 41.3 fL (36.4-46.3) 11/30/24 06:35 RDW Coeff of Viky 12.7 % (11.5-14.5) 11/30/24 06:35 Plt Count 331 K/uL (130-400) 11/30/24 06:35 MPV 9.6 fL (9.4-12.4) 11/30/24 06:35 Immature Gran % (Auto) 0.2 % 11/27/24 02:09 Neut % (Auto) 68.2 % 11/27/24 02:09 Lymph % (Auto) 12.0 % 11/27/24 02:09 Saline % (Auto) 9.6 % 11/27/24 02:09 Eos % (Auto) 9.6 % 11/27/24 02:09 Baso % (Auto) 0.4 % 11/27/24 02:09 Neut # (Auto) 7.85 K/uL (1.40-6.50) H 11/27/24 02:09 Lymph # (Auto) 1.38 K/uL (1.20-3.40) 11/27/24 02:09 Saline # (Auto) 1.11 K/uL (0.11-0.59) H 11/27/24 02:09 Eos # (Auto) 1.11 K/uL (0.00-0.50) H 11/27/24 02:09 Baso # (Auto) 0.05 K/uL (0.00-0.20) 11/27/24 02:09 Immature Gran # (Auto) 0.02 K/uL (0.01-0.20) 11/27/24 02:09 PT 40.8 Seconds (9.0-12.0) H 11/30/24 06:35 INR 4.3 (0.9-1.1) H 11/30/24 06:35 APTT 31 Seconds (21-31) 11/27/24 02:09 PTT Ratio 1.2 11/27/24 02:09 Heparin Anti-Xa, Unfract < 0.10 IU/ml (0.3-0.7) L 11/29/24 12:48 POC Sodium 136 mmol/L (135-144) 11/25/24 13:57 Sodium 134 mmol/L (136-145) L 11/30/24 06:35 POC Potassium 4.4 mmol/L (3.3-5.0) 11/25/24 13:57 Potassium 4.3 mmol/L (3.5-5.1) 11/30/24 06:35 POC Chloride 101 mmol/L (101-112) 11/25/24 13:57 Chloride 98 mmol/L (98-107) 11/30/24 06:35 Carbon Dioxide 30 mmol/L (21-32) 11/30/24 06:35 POC Total CO2 26 mmol/L (24-31) 11/25/24 13:57 Anion Gap 6 (3-11) 11/30/24 06:35 POC Anion Gap 14.0 mmol/L (16-25) L 11/25/24 13:57 POC BUN 9 mg/dl (7-18) 11/25/24 13:57 BUN 13 mg/dl (6-23) 11/30/24 06:35 Creatinine 0.51 mg/dl (0.6-1.2) L 11/30/24 06:35 POC Creatinine 0.7 mg/dl (0.6-1.3) 11/25/24 13:57 Est Cr Clr Drug Dosing 94.3 ml/min 11/30/24 06:35 eGFR 99.73 11/30/24 06:35 BUN/Creatinine Ratio 25.5 (10-20) H 11/30/24 06:35 Glucose 138 mg/dl (70-99(Fasting)) H 11/30/24 06:35 Synovial Source Other 11/29/24 Unknown Synovial Color Pale Yellow 11/29/24 Unknown Synovial Appearance Cloudy 11/29/24 Unknown Synovial WBC (Auto) 90131 /ul (0-200) H 11/29/24 Unknown Synovial RBC (Auto) < 2000 /uL 11/29/24 Unknown Synovial Polynuclear % 92.1 % 11/29/24 Unknown Synovial Mononuclear % 7.9 % 11/29/24 Unknown Impressions
[2024-11-30] MEDS: ACYCLOVIR 400 MG TAB PO SCH (14:00)
[2024-11-30] MEDS: GLYCERIN ADULT 12 SUPP/BOX SUPP PR ONE (14:00)
[2024-11-30] MEDS ORDERED: Nursing to Pharmacy Communication SCH (17:15)
[2024-12-01 06:33] LABS: Hematocrit (blood only) 35.3 % (37.0-47.0); Hemoglobin 11.9 g/dl (12.0-16.0); Mean Corpuscular Hemoglobin 29.5 pg (25.0-34.0); Mean Corpuscular Hgb Conc 33.7 g/dL (32.0-36.0); Mean Corpuscular Volume 87.4 fL (80.0-100.0); Mean Platelet Volume 9.7 fL (9.4-12.4); Platelet Count 338 K/uL (130-400); RDW Coefficient of Variation 12.9 % (11.5-14.5); RDW Standard Deviation 41.1 fL (36.4-46.3); Red Blood Count 4.04 M/uL (4.20-5.40); White Blood Count 10.11 K/ul (4.8-10.8)
[2024-12-01 06:50] LABS: BUN Creatinine Ratio 33.9 (10-20); Calcium 8.6 mg/dl (8.6-10.3); Creatinine Clr Calc Pharmacy 82.2 ml/min; Magnesium 2.1 mg/dl (1.7-2.4)
[2024-12-01 07:00] LABS: Prothrombin Time 55.1 Seconds (9.0-12.0)
[2024-12-01 07:09] LABS: INR 5.9 (0.9-1.1)
--- NOTE | 2024-12-01 11:55 | Orthopedic Progress Note ---
Date of Service December 01, 2024 Assessment & Plan (1) Left ankle swelling: Plan: She continues to do well. She was able to ambulate to the bathroom with minimal pain yesterday. She did have an episode of redness on the left big toe going over the bottom of the foot up to the ankle yesterday. This has since resolved. There is trace tenderness in the subfibular area of the left ankle. Otherwise nontender. Swelling improved. There is increased warmth but no erythema. The right foot demonstrates slight tenderness over the dorsal aspect of the foot but no swelling or redness. She has good range of motion of both ankles flexion and extension as well as circumduction of the left ankle. There is currently no erythema or swelling. Progressively improved compared to previous. Cultures no growth to date. Crystal analysis showed no evidence of gout or pse udogout. Impression is left ankle pain and swelling with effusion. Plan: Etiology of her symptoms is not clear. It appears to be inflammatory in nature. She is getting better with the oral steroids. There is no evidence of bacterial infection gout or pseudogout. Check Lyme test. She may weight-bear as tolerated, activities as tolerated and move as able. She does not require any type of brace or splint. Admission and Anticipated Discharge Date Admission Date: November 25, 2024
[2024-12-01 14:56] VITALS: O2SAT 94
[2024-12-01 15:42] VITALS: PULSE 77; RESP 18; TEMP 97.5
--- NOTE | 2024-12-01 16:51 | Discharge Summary ---
Date of Service December 01, 2024 Admission HPI Per Admitting Provider 69-year-old female with history of metastatic lung cancer, asthma, etc. presenting with shortness of breath times few days. Patient has metastatic lung cancer and is currently receiving Tagrisso oral chemotherapy. For the past few days the patient has had progressive shortness of breath with dry cough, no fevers or chills, chest pain. At the ER,, patient received blood pressure 149/83, heart rate 108, 92% on room air. CT chest showing 1. No pulmonary emboli identified. 2. Mild progression of metastatic disease since chest CT of October 14, 2024, as described above. Large malignant left pleural effusion which has significantly increased in size since prior exam. This results in diminished aeration of the left lung. 3. Mild progression of thoracic lymphadenopathy. 4. No significant change in several small right lower lobe pulmonary nodules. Pulmonary service consulted, pigtail catheter placed at the bedside. Fluids were sent for labs, culture and cytology Postprocedure, patient seen resting in bed, comfortable, on 2 L of O2 States breathing is starting to improve Having some pain over the insertion site Otherwise feels fine overall Admission Exam Per Admitting Provider General- oriented x 3, not in distress, speaks in sentences with no effort or accessory muscle use Head- atraumatic Eyes- PERRL, EOMI, anicteric ENT- oropharynx clear Neck- supple, no JVD, no adenopathy, no thyromegaly; carotids +2/2, no bruits appreciated Lungs-Decreased breath sounds left lung culver, visual catheter in place, draining serosanguineous fluid Right lung essentially clear Heart- normal rate, regular rhythm; no murmur, no gallop, no rub appreciated Abdomen- normal bowel sounds, nondistended, soft, nontender, no masses or hepatosplenomegaly Extremities- no pretibial edema, no calf tenderness; peripheral pulses intact Neuro- alert, oriented x 3; CN 2-12 grossly intact; motor 5/5 bilaterall y;sensation 100% on all extremities; no other gross focal neurologic deficits Skin- warm & dry Principal Diagnosis Malignant pleural effusion LE DVT ankle edema Discharge Exam General- oriented x 3, not in distress, speaks in sentences with no effort or accessory muscle use Head- atraumatic Eyes- PERRL, EOMI, anicteric Neck- supple Lungs- CTAB, chest tube removed minimal basilar crackles b/l No wheezing Heart- normal rate, regular rhythm; no murmur Abdomen- normal bowel sounds, nondistended, soft, mildly tender at left upper quadrant Extremities- mild LLE edema, L ankle tender to palpation - improved from previous exam Neuro- alert, oriented x 3; speech fluent, no facial asymmetry, answers appropriately, moves extremities Skin- warm & dry Discharge Data Allergies Allergy/AdvReac Type Severity Reaction Status Date / Time losartan Allergy Severe SWELLING Verified 11/25/24 17:40 OF FACE, LIPS & TONGUE Penicillins Allergy Severe SWELLING Verified 11/25/24 17:40 OF FACE, LIPS & TONGUE fentanyl Allergy Intermediate itching Verified 11/25/24 17:40 oxycodone Allergy Intermediate ITCHING Verified 11/25/24 17:40 ALL OVER tramadol AdvReac Severe Hallucinati Verified 11/25/24 17:40 ons Sulfa (Sulfonamide AdvReac Intermediate URNIARY Verified 11/25/24 17:40 Antibiotics) FREQUENCY sulfamethoxazole AdvReac Intermediate URNIARY Verified 11/25/24 17:40 FREQUENCY topiramate AdvReac Intermediate Blurry Verified 11/25/24 17:40 Vision metronidazole AdvReac Mild STOMACH Verified 11/25/24 17:40 PAIN trimethoprim AdvReac Mild URINARY Verified 11/25/24 17:40 FREQUENCY Consultations 11/25/24 15:23 ED Decision to Admit Stat 11/25/24 16:35 Consult Pulmonology Routine 11/27/24 12:28 Consult Palliative Care Routine 11/29/24 12:21 Consult Orthopedic Surgery Routine Ordered Studies 11/25/24 13:09 CT angio chest PE protocol Stat FINDINGS: No pulmonary emboli are identified. There is no thoracic aortic dissection. There is no pericardial effusion. A large malignant left pleural effusion has significantly increased in size since CT of October 14, 2024. There is no pneumothorax. There is a small right pleural effusion. Extensive left lung airspace opacity with volume loss is noted. This has progressed since prior examination. The previously described left apical mass is obscured on this exam. Pleural metastatic disease within the left hemithorax has mildly progressed. Thoracic lymphadenopathy as also mildly progressed. A left supraclavicular lymph node on image 175 of 211 measures 2 x 1.4 cm, previously 1.5 x 1.4 cm. A left axillary lymph node measures 2.8 x 1.9 cm. This was partially imaged on prior exam. An additional left axillary lymph node measures 1.6 x 1.4 cm, previously 1.4 x 1.1 cm. Mediastinal and hilar adenopathy has also progressed. Several small right lower lobe pulmonary nodules measuring up to 5 mm are unchanged. There are mild groundglass opacities within the right lung. Status post T12 kyphoplasty. Visualized portions of the upper abdomen are unremarkable. IMPRESSION: 1. No pulmonary emboli identified. 2. Mild progression of metastatic disease since chest CT of October 14, 2024, as described above. Large malignant left pleural effusion which has significantly increased in size since prior exam. This results in diminished aeration of the left lung. 3. Mild progression of thoracic lymphadenopathy. 4. No significant change in several small right lower lobe pulmonary nodules. 11/25/24 16:27 US point of care ultrasound Urgent 11/26/24 09:00 CT soft tissue neck wo con Routine FINDINGS: Visualized portions of the intracranial contents are unremarkable on unenhanced examination. There are postoperative findings consistent with C4-C7 anterior discectomy and fusion. Postoperative appearance is similar to neck CT of November 04, 2020. No suspicious lesions within the cervical spine are identified. There are no cervical spine fractures. Evaluation of the neck is compromised on unenhanced exam. No fluid collections are identified. There is no prevertebral edema. The glottis is closed. Apparent medialization of the right vocal cord may be due to a closed glottis. Multiple enlarged cervical and mediastinal lymph nodes are again noted, as shown on recent chest CT. A left supraclavicular lymph node on image 277 of 341 measures 2 x 1.3 cm. Trace left apical pleural gas is noted. Left apical mass is again noted as well as left pleural implants and nodular interlobular septal thickening within the left upper lobe. IMPRESSION: 1. Pathologic cervical and mediastinal lymphadenopathy, as described above. 2. 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 Trace left pleural gas, likely related to recent thoracentesis. 3. No fluid collections within the neck. No prevertebral edema. 4. No mucosal lesions within the neck although sensitivity diminished on unen hanced exam. 11/26/24 20:41 US venous doppler LE LT Urgent FINDINGS: Deep veins: There is deep venous thrombosis in a left posterior tibial vein. No DVT in the visualized common femoral, femoral, proximal deep femoral or popliteal veins. These veins demonstrate normal color flow, are normally compressible, with normal phasic flow and/or augmentation response. Superficial veins: Unremarkable. No thrombus in the visualized great saphenous vein. Soft tissues: No acute findings. No popliteal cyst. IMPRESSION: There is deep venous thrombosis in a left posterior tibial vein. 11/29/24 02:13 CT ankle LT wo con Routine FINDINGS: Left ankle soft tissue swelling is present. No fluid collections are i dentified on unenhanced exam. Alignment of the left ankle is anatomic. No acute fractures are identified. Talar dome is intact. There are no osseous lesions. Os trigonum is incidentally noted. Multiple small ossific/calcific densities within the posterior tibiotalar joint are present. Small ossific densities along the fibular tip and medial malleolus are chronic. IMPRESSION: 1. No acute fractures within the left ankle. 2. Left ankle soft tissue swelling. 3. Multiple ossific/calcific densities within the posterior tibiotalar joint which could reflect joint bodies or chondrocalcinosis. Hospital Course (1) Pleural effusion: (2) Small cell lung cancer, left upper lobe: 69-year-old female with history of Non-small cell lung ca c/w adenocarcinoma (per review of records in [facility], onc. Dr. Simmons) metastatic lung cancer, asthma, etc. presenting with shortness of breath times few days. Left-sided pleural effusion Metastatic lung cancer Status post pigtail insertion by Dr. Davis Fluid studies c/w adenocarcinoma Currently taking Tagrisso oral chemo Per pulmonary med (Dr. Davis) - removed chest tube (11/27/2023) Continue with BiPAP nightly and as needed shortness of breath Overall prognosis is poor Abdominal pain - resolved - left upper quadrant - KUB obtained - Gas distended colon in the left abdomen may represent ileus. - after Chest tube removal pt says abd. pain resolved, she is passing gas now, also had BM Acute LE DVT Doppler obtained - deep venous thrombosis in a left posterior tibial vein Started on IV heparin - stopped now as INR therapeutic - started coumadin, hold today for INR supratherapeutic -follow up with anticoagulation clinic, have INR rechecked in next 1-2 days L ankle pain - tender to palp. - XR obtained - negative for fx -CT L ankle obtained - 1. No acute fractures within the left ankle. 2. Left ankle soft tissue swelling. 3. Multiple ossific/calcific densities within the posterior tibiotalar joint whi ch could reflect joint bodies or chondrocalcinosis. - Orthopedics consulted and discussed with. Pt s/p aspiration of L on (11/29/2023). Ortho recommended to start prednisone for poss. gout vs pseudogout, and this was started. Pt reports pain is much improved now. Cont. to taper down. Chronic cough, likely mod persistent asthma -Perforomist, budesonide ordered History of PE: Patient reports history of PE in 2001 postoperatively. Patient reports she was on coumadin before. Other chronic medical condition: HTN, HLD, hypothyroidism etc. ---> continue with/resume home meds as when able. Hold lisinopril for now, BP on lower side Total Time Total Time Spent Total Time Spent (In Minutes): 40 Discharge Plan Discharge Items Patient Disposition: Home - Self-Care Reason For Visit: LEFT PLEURAL EFFUSION Discharge Diagnosis: Malignant pleural effusion LE DVT ankle edema Activity: Per Instructions section Non-emergency contact: Primary Care Provider, Specialist and Oncologist Call non-emergency contact if: you have any medication questions and your symptoms worsen Follow-up/Referrals: Cortez Simmons MD [Surgeon] - (The office will call you with a follow up appointment.) Cj Rico MD [Primary Care Provider] - (Date & Time 12/08/2024 12:00 PM Provider: Kaylan Hernandez PA-C Department: [facility] ) Diet: Regular Addtl Attending Provider Instructions: Follow up with your primary care doctor, and oncologist. Follow up with pulmonary doctor. Follow up with ENT, Dr. Kwong. You will be called about the appointment. Follow up with palliative medicine - Dr. Wendie Bertrand. Follow up with anticoagulation clinic and have blood work - INR in next 1-2 days. Do not take warfarin (coumadin) until your INR is rechecked. Finish antibiotic treatment with doxycycline as prescribed. Take prednisone 40 mg (2 tabs) for next 2 days, then take 20 mg (1 tab) for next 3 days. Start using Trelegy inhaler as recommended by transit planner. For now, do not take lisinopril as your blood pressure has been low/ normal. Resume after talking to your primary care doctor. Pending Studies at Discharge: Yes Studies:: final cultx results from ankle fluid Stand-Alone Forms: [facility] Work[facility], Smoking Cessation Medications and DC Order Prescriptions: New warfarin 2 mg Tablet 1 mg PO DAILY Qty: 20 0RF prednisone 20 mg tablet 20 mg PO UD Qty: 7 0RF Rx Instructions: Take 2 tabs for next 2 days, then take 1 tab for next 3 days doxycycline hyclate 100 mg Capsule 100 mg PO BID 5 Days Qty: 10 0RF Trelegy Ellipta 100-62.5-25 mcg blister with device 1 inh inhalation DAILY Qty: 28 0RF Continued prochlorperazine maleate 10 mg tablet 10 mg PO DAILY PRN (Reason: Nausea And Vomiting) baclofen 10 mg tablet 20 mg PO BID hydromorphone [Dilaudid] 4 mg tablet 4 mg PO Q4H PRN (Reason: pain) 30 Days Qty: 90 0RF Rx Instructions: Pt takes this on top of Morphine when pain is really bad. acyclovir 400 mg Tablet 400 mg PO TID PRN (Reason: Cold Sore(s)) Rx Instructions: TAKE THIS MEDICATION DIRECTED FOR 5 TO 7 DAYS levothyroxine 100 mcg Tablet 100 mcg PO DAILYBB Rx Instructions: MUST BE BRAND NAME albuterol sulfate [Ventolin HFA] 90 mcg/actuation Hfa Aerosol Inhaler 2 puff INHALATION Q4H PRN (Reason: Wheezing) Praluent Pen 75 mg/mL pen injector 75 mg SUBCUT Q14D ipratropium-albuterol 0.5 mg-3 mg(2.5 mg base)/3 mL Solution For Nebulization 3 ml INHALATION Q6H PRN (Reason: Wheezing) cholecalciferol (vitamin D3) 25 mcg (1,000 unit) Capsule 25 mcg PO DAILY aspirin 81 mg Tablet,Delayed Release (Dr/Ec) 81 mg PO DAILY famotidine 20 mg tablet 20 mg PO BID Tagrisso 80 mg Tablet 80 mg PO PM zolpidem 10 mg tablet 10 mg PO HS lorazepam [Ativan] 0.5 mg tablet 0.5 mg PO Q6H PRN (Reason: anxiety, insomnia, nausea from cancer) lidocaine 4 % adhesive patch,medicated 1 patch topical DAILY PRN (Reason: pain) Qty: 30 0RF ondansetron HCl 8 mg tablet 8 mg PO Q6H PRN (Reason: Nausea And Vomiting) polyethylene glycol 3350 [Miralax] 17 gram powder in packet 17 g PO DAILY PRN (Reason: Constipation) docusate sodium 100 mg capsule 100 mg PO BID PRN (Reason: Constipation) guaifenesin [Mucinex] 600 mg tablet extended release 12hr 600 mg PO BID PRN (Reason: chest congestion) morphine [MS Contin] 15 mg tablet extended release 15 - 30 mg PO Q12H Rx Instructions: Per pt, the MD told her to take 15 - 30mg by mouth twice daily. Progressive cancer with resp symptoms on recent petct. Held lisinopril 20 mg tablet 10 mg PO DAILY Hold Instructions: Resume on 12/08/24. until seen by primary care doctor Discharge Orders: Discharge Order (Routine); Ordered 12/01/24 Ordered By: Aureliano Sumner Admission Data Admit Date/Time: 11/25/24 16:06 Attending Provider: Aureliano Sumner Admit Provider: Bucky Lobo Primary Care Provider: Cj Rico Other Providers: Bucky Lobo; Carlos Davis; [facility]; Wendie Bertrand; Laith Galicia
[2024-12-01 17:05] VITALS: BP 135/84
[2024-12-01] MEDS: OSIMERTINIB MESYLATE PO SCH (17:17)
== END 2024-12-01 17:50 | disposition home health service (06) | DRG 181 ==
LOC: ED 13:02 → EDINP 16:06 → SUATTDRO 16:06 → 2N 20:15

== ENCOUNTER 2024-12-11 12:33 | Inpatient (IN) ==
[2024-12-11 13:25] LABS: Basophils % (auto) 0.6 %; Eosinophils # (auto) 0.98 K/uL (0.00-0.50); Eosinophils % (auto) 5.8 %; Hematocrit (blood only) 44.5 % (37.0-47.0); Hemoglobin 14.9 g/dl (12.0-16.0); Immature Granulocytes # (auto) 0.07 K/uL (0.01-0.20); Immature Granulocytes % (auto) 0.4 %; Lymphocytes # (auto) 1.76 K/uL (1.20-3.40); Lymphocytes % (auto) 10.4 %; Mean Corpuscular Hemoglobin 29.4 pg (25.0-34.0); Mean Corpuscular Hgb Conc 33.5 g/dL (32.0-36.0); Mean Corpuscular Volume 87.9 fL (80.0-100.0); Mean Platelet Volume 9.3 fL (9.4-12.4); Monocytes # (auto) 1.28 K/uL (0.11-0.59); Monocytes % (auto) 7.5 %; Neutrophils % (auto) 75.3 %; Platelet Count 452 K/uL (130-400); RDW Coefficient of Variation 13.9 % (11.5-14.5); RDW Standard Deviation 44.9 fL (36.4-46.3); Red Blood Count 5.06 M/uL (4.20-5.40); White Blood Count 16.99 K/ul (4.8-10.8)
[2024-12-11 13:41] LABS: Appearance Urine Cloudy (Clear); Bacteria Urine Automated None Seen (None Seen); Bilirubin Urine Negative (Negative); Blood Urine Negative (Negative); Cast Urine Automated 0-2 /lpf (0-2); Color Urine Yellow; Glucose Urine UA Negative (Negative); Ketones Urine Trace (Negative); Leukocyte Esterase Urine 1+ (Negative); Nitrite Urine Negative (Negative); Protein Urine Negative (Negative); RBC Urine Automated 0-2 /hpf (0-2); Specific Gravity Urine 1.015 (1.000-1.030); Urobilinogen Urine Negative (Negative); WBC Urine Automated 0-5 /hpf (0-5)
[2024-12-11 13:44] LABS: INR 1.3 (0.9-1.1); Prothrombin Time 13.8 Seconds (9.0-12.0)
--- NOTE | 2024-12-11 13:45 | XRay Report ---
XR chest 1V portable CLINICAL HISTORY: Chest pain, nonspecific TECHNIQUE: Single frontal radiograph of the chest was obtained. Comparison: Comparison is made to chest radiograph 11/27/2024 FINDINGS: No lines and tubes are seen. The cardiomediastinal silhouette is obscured. Left lower lung predominan t airspace opacities are seen. Moderate left pleural effusion is seen. ACDF is seen. IMPRESSION: Moderate left pleural effusion is seen with underlying atelectasis. Superimposed aspiration/pneumonia may be present in the left lung. ACT 112: Negative or not required by law. Electronically signed by: Adelso Hernandez M.D. 12/11/2024 1:44 PM
[2024-12-11 13:47] LABS: Albumin Globulin Ratio 1.4 (0.9-2); Albumin Level 3.8 gm/dl (3.4-5.0); BUN Creatinine Ratio 12.2 (10-20); Bilirubin,Total 0.6 mg/dl (0.2-1.0); Calcium 9.1 mg/dl (8.6-10.3); Creatinine Clr Calc Pharmacy 56.4 ml/min; Globulin 2.7 gm/dl (2.5-4.0); Phosphorus 3.5 mg/dl (2.5-4.9); Potassium 4.1 mmol/L (3.5-5.1); Total Protein 6.5 gm/dl (6.0-8.3)
[2024-12-11 13:53] LABS: Troponin I High Sensitivity 8.7 pg/ml (0-14)
[2024-12-11 14:03] LABS: Thyroid Stimulating Hormone 0.437 uIu/ml (0.300-4.500)
[2024-12-11 14:36] LABS: Adenovirus PCR Not Detected (NotDetected); Bordetella parapertussis PCR Not Detected (NotDetected); Bordetella pertussis PCR Not Detected (NotDetected); Chlamydia pneumoniae PCR Not Detected (NotDetected); Coronavirus 229E PCR Not Detected (NotDetected); Coronavirus CoV-2 (COVID19)PCR Not Detected (NotDetected); Coronavirus HKU1 PCR Not Detected (NotDetected); Coronavirus NL63 PCR Not Detected (NotDetected); Coronavirus OC43PCR Not Detected (NotDetected); Human Metapneumovirus PCR Not Detected (NotDetected); Influenza A PCR Not Detected (NotDetected); Influenza B PCR Not Detected (NotDetected); Mycoplasma pneumoniae PCR Not Detected (NotDetected); Parainfluenza Virus 1 PCR Not Detected (NotDetected); Parainfluenza Virus 2 PCR Not Detected (NotDetected); Parainfluenza Virus 3 PCR Not Detected (NotDetected); Parainfluenza Virus 4 PCR Not Detected (NotDetected); Respiratory Syncytial VirusPCR Not Detected (NotDetected); Rhinovirus/Enterovirus PCR Not Detected (NotDetected)
[2024-12-11] MEDS: FAMOTIDINE 20MG IV PUSH 20 MG/5 ML SYR IV STA (14:46)
[2024-12-11] MEDS: SODIUM CHLORIDE 0.9% 1,000 ML IV ONE (14:46)
[2024-12-11] MEDS: ONDANSETRON INJ 2 MG/ML 2 ML VIAL IV STA (14:46)
[2024-12-11] MEDS: MoRPHine SULFATE 4 MG/ML 1 ML CARP\\VIAL IV STA ×2 (14:46→19:15)
--- NOTE | 2024-12-11 14:47 | Emergency Department Note ---
Impression & Plan Acute generalized abdominal pain, Opioid-induced constipation, Metastatic primary lung cancer ED Provider Note NAME: SHONA HOLLAND AGE: 69 SEX: F : 1955 ARRIVES VIA: Walk-In INFORMANT: Patient ED PROVIDER(S): Ricardo Breen MD CHIEF COMPLAINT: Abdominal pain, metastatic cancer, referred. PLAN: Disposition: Admit MEDICAL DECISION MAKING: The patient is a pleasant 69-year-old woman with a past medical history of metastatic lung cancer, asthma, recent admission from 11/25-12/01 for malignant pleural effusion status post chest tube and drainage where she was also diagnosed with a acute lower extremity DVT started on heparin and transition to warfarin in setting of having a history of prior PE and 2002 postoperatively, hypertension, hyperlipidemia, hypothyroidism who presents to the emergency department via walk-in for evaluation of generalized abdominal pain over the past several days with episode of diarrhea where she was referred to the emergency department by her oncology office for evaluation for infection. Patient reports that she was told her white blood cell count was elevated. Patient is currently on oral palliative chemo. Per records, she has been seen by palliative care and has started discussions about focusing on comfort. Patient denies any fevers. She reports feeling nausea but denies vomiting. She denies chest pain or any shortness of breath. On evaluation the patient is no acute distress, afebrile with heart in the 100s and blood pressure 140s/80s and vital signs otherwise stable. She appears clinically dry. She exhibits generalized discomfort in her abdomen with mild localized tenderness in her upper abdomen without guarding or rebound. She has no guarding or rebound. EKG without overt acute ischemia. CXR demonstrates left lower lung airspace opacities with moderate residual left pleural effusion seen. Findings better characterized on CT imaging subsequently. WBC 16.9 K with neutrophilia but no left shift, nonspecific. H/H within normal limits. Platelets 452K, nonspecific and likely reactive. INR subtherapeutic at 1.3 after recent supratherapeutic value of 5.9 on 12/01. Chemistry without metabolic acidosis. Electrolytes and LFTs unremarkable. High-sensitivity troponin 8.7, within normal limits. Procalcitonin is not elevated. TSH within limits. UA without convincing evidence of infection. Respiratory BioFire was negative. CT of the chest overall similar to 11/25 and demonstrates prominent pleural interstitial thickening of the left lung culver with stable pulmonary nodules. Lymphadenopathy in bilateral cervical/subclavian region and left axillary region and mediastinal lymphadenopathy are similar to prior. CT of the abdomen pelvis demonstrates metastatic disease within the lower chest without definitive evidence of metastatic disease in the abdomen or pelvis. No bowel obstruction or bowel wall thickening is noted. Moderate colonic fecal retention is present. Additional description of small fat filled infra umbilical hernia with associated inflammatory stranding is suspicious for incarcerated fat however this does not correlate with the patient's exam as she has no tenderness in this region and pain is more in her upper abdomen. Unclear etiology to the patient's abdominal pain at this time. May be related to patient's fecal retention given location of her discomfort. Given the patient's leukocytosis patient was treated empirically with Cefepime for possible infection though procalcitonin is not elevated. Patient was treated with IV morphine for pain and provided with IV fluid hydration. She does agree with plan for admission for further management and evaluation. Case [facility] will [facility] the patient for [facility]. Further management per admitting team including anticoagulation. Triage Nursing notes reviewed and agree them. Prior/external medical records reviewed Vital Signs: reviewed Differential diagnosis: Gastroenteritis, food borne illness, infections, appendicitis, diverticulitis, inflammatory bowel disease, obstruction, GI bleed, biliary pathology, volvulus, as well as other pathologies. ER treatment provided: See below. Diagnostics interpreted by me: ECG: Sinus tachycardia, 102 bpm, no ectopy, no overt ST ovation or depression, QTc 435, QRS 70. Cardiac Monitoring: An order for continuous cardiac monitoring was placed and demonstrated Sinus tachycardia, 102 bpm, no ectopy Laboratory studies: See below Imaging studies: See below Consultation(s): Case was discussed with [facility], who will evaluate the patient for admission. HPI: The patient is a pleasant 69-year-old woman with a past medical history of metastatic lung cancer, asthma, recent admission from 11/25-12/01 for malignant pleural effusion status post chest tube and drainage where she was also diagnosed with a acute lower extremity DVT started on heparin and transition to warfarin in setting of having a history of prior PE and 2002 postoperatively, hypertension, hyperlipidemia, hypothyroidism who presents to the emergency department via walk-in for evaluation of generalized abdominal pain over the past several days with episode of diarrhea where she was referred to the emergency department by her oncology office for evaluation for infection. Patient reports that she was told her white blood cell count was elevated. Patient is currently on oral palliative chemo. Per records, she has been seen by palliative care and has started discussions about focusing on comfort. Patient denies any fevers. She reports feeling nausea but denies vomiting. She denies chest pain or any shortness of breath. ROS: See above HPI for pertinent positives & negatives. A total of 10 systems reviewed and were otherwise negative. VITALS:See Below PHYSICAL EXAMINATION: GENERAL: Awake, alert, in no distress, BMI 29.6. HENT: Normocephalic, atraumatic. Oropharynx with dry mucous membranes and otherwise unremarkable. EYES: Normal conjunctiva. Sclera non-icteric. NECK: Supple. No nuchal rigidity. FROM. No JVD. RESPIRATORY: Diminished left lower lung culver and mild rhonchi of left upper lung culver and otherwise clear with normal respiratory effort. CARDIAC: Tachycardic rate, normal rhythm. Extremities warm and well perfused. Pulses equal. ABDOMEN: Soft, non-distended. Generalized discomfort in her abdomen with mild localized tenderness in her upper abdomen without guarding or rebound. She has no guarding or rebound. MUSCULOSKELETAL: Chest examination reveals no tenderness. The back is symmetrical on inspection without obvious abnormality. There is no CVA tenderness to palpation. No joint edema. LOWER EXTREMITIES: Calves are equal size bilaterally and non-tender. No edema. No discoloration. NEURO: Normal sensorium. No sensory or motor deficits noted. SKIN: No rash or jaundice noted. Ricardo Breen MD Past Med/Surg History Problem List (Updated 12/12/24 @ 01:24 by Ricardo Breen MD) Metastatic primary lung cancer (Acute) Abdominal pain Left ankle swelling Pleural effusion (Acute) Back muscle spasm Opioid-induced constipation (Acute) Acute generalized abdominal pain (Acute) Acute left flank pain (Acute) Dyspnea and respiratory abnormalities Drug-induced skin rash Nausea Anxiety associated with cancer diagnosis Anxiety Primary lung squamous cell carcinoma (Acute) Advanced care planning/counseling discussion Palliative care by specialist Weakness generalized Cancer related pain (Acute) Myofascial pain (Acute) Cervicalgia Lung cancer (Acute) Weak Chest pain (Acute) SOB (shortness of breath) (Acute) Epicondylitis, lateral, right Rotator cuff tear, left Abdominal pain (Acute) Diverticulitis Lumbar radiculopathy (Acute) Spondylisthesis (Acute 03/24/14) Urinary problem URINARY LEAKAGE Osteomyelitis (Acute) Discitis (Acute) Lymphadenopathy Tinnitus of both ears Sensorineural hearing loss of both ears Arthritis Gout Adverse reaction to anesthetic agent Unable to come out of it for 3 days Rhinitis GERD (gastroesophageal reflux disease) Encounter for pre-operative examination HLD (hyperlipidemia) (Chronic) GERD (gastroesophageal reflux disease) (Chronic) S/P colon resection (Chronic) chronic diverticulits Hx of fusion of cervical spine (Chronic) (at least 3 levels fused together) Full ROM S/P lumbar fusion (Chronic) Pneumonia hx Bronchitis hx Asthma (Chronic) inhalers prn High blood pressure (Chronic) Irritable colon (Chronic Unknown) Medical History Incomplete rotator cuff tear or rupture of left shoulder, not specified as traumatic Encounter for pre-operative examination Intractable back pain Compression fracture of T12 vertebra Prediabetes RECENT NEW SCRIPT FOR METFORMIN Hx of Clostridium difficile infection APPROX 5 YRS AGO Hx of discitis treated at [facility] (2019) Hx of deep venous thrombosis ~2019 Pulmonary embolism hx of 2006 Pseudogout Hypothyroidism Chronic back pain Osteoarthritis Abdominal hernia no surgery Peripheral neuropathy Migraine hx Chronic obstructive pulmonary disease mild Sleep apnea NO MACHINE Surgical History History of right cataract surgery SEP 2020 History of anesthesia reaction EXTREMELY SLOW TO WAKE UP (COLON RESECTION) History of dilatation and curettage History of total abdominal hysterectomy and bilateral salpingo-oophorectomy History of carpal tunnel release RT History of bunionectomy RT FOOT History of appendectomy History of esophagogastroduodenoscopy (EGD) History of colonoscopy History of tooth extraction History of tonsillectomy History of adenoidectomy S/P ablation of atrial fibrillation ~2014 Family History Mother Family history of esophageal cancer Hearing loss Father Hearing loss Brother Hearing loss Other Cancer Gallbladder disease Heart disease Hypertension Lung disease No family history of adverse response to anesthesia No family history of bleeding disorder Stroke Social History Smoking Status: Former smoker Tobacco Type: Cigarettes Second Hand Exposure: No; Do You Dip or Chew Tobacco: No; Tobacco Cessation Education Requested by Patient: No Hx Alcohol Use: Yes Alcohol type: hard liquor Hx Substance Use: No Preferred Language: Nepali Communication Ability: Effective Historian Dramatic Arts Required: No Beliefs That Will Affect Care: None Current Living Situation: Alone current occupational status: retired Other Information That Helps Us Care for You: No Feels Safe at Home: Yes Safety Concerns: Feels Safe At This Time Assistive Devices: None Allergies Allergies Allergy/AdvReac Type Severity Reaction Status Date / Time losartan Allergy Severe SWELLING Verified 11/25/24 17:40 OF FACE, LIPS & TONGUE Penicillins Allergy Severe SWELLING Verified 11/25/24 17:40 OF FACE, LIPS & TONGUE fentanyl Allergy Intermediate itching Verified 11/25/24 17:40 oxycodone Allergy Intermediate ITCHING Verified 11/25/24 17:40 ALL OVER tramadol AdvReac Severe Hallucinati Verified 11/25/24 17:40 ons Sulfa (Sulfonamide AdvReac Intermediate URNIARY Verified 11/25/24 17:40 Antibiotics) FREQUENCY sulfamethoxazole AdvReac Intermediate URNIARY Verified 11/25/24 17:40 FREQUENCY topiramate AdvReac Intermediate Blurry Verified 11/25/24 17:40 Vision metronidazole AdvReac Mild STOMACH Verified 11/25/24 17:40 PAIN trimethoprim AdvReac Mild URINARY Verified 11/25/24 17:40 FREQUENCY Home Meds Home Medications Medication Instructions Recorded Confirmed acyclovir 400 mg tablet 400 mg PO TID PRN Cold Sore(s) 08/22/18 12/11/24 albuterol sulfate 90 mcg/actuation 2 puff inhalation Q4H PRN Wheezing 08/22/18 12/11/24 aerosol inhaler (Ventolin HFA) levothyroxine 100 mcg tablet 100 mcg PO DAILYBB 08/22/18 12/11/24 alirocumab 75 mg/mL subcutaneous 75 mg subcut Q14D 09/19/23 12/11/24 pen injector (Praluent Pen) aspirin 81 mg tablet,delayed 81 mg PO DAILY 09/19/23 12/11/24 release cholecalciferol (vitamin D3) 25 25 mcg PO DAILY 09/19/23 12/11/24 mcg (1,000 unit) capsule famotidine 20 mg tablet 20 mg PO BID 09/19/23 12/11/24 ipratropium 0.5 mg-albuterol 3 mg 3 ml inhalation Q6H PRN Wheezing 09/19/23 12/11/24 (2.5 mg base)/3 mL nebulization soln lorazepam 0.5 mg tablet (Ativan) 0.5 mg PO Q6H PRN anxiety, 09/08/24 12/11/24 insomnia, nausea from cancer osimertinib 80 mg tablet (Tagrisso) 80 mg PO PM 09/08/24 12/11/24 zolpidem 10 mg tablet 10 mg PO HS 09/08/24 12/11/24 baclofen 10 mg tablet 20 mg PO BID 09/11/24 12/11/24 prochlorperazine maleate 10 mg 10 mg PO DAILY PRN Nausea And 09/11/24 12/11/24 tablet Vomiting lisinopril 20 mg tablet 10 mg PO DAILY 09/25/24 12/11/24 docusate sodium 100 mg capsule 100 mg PO BID PRN Constipation 11/25/24 12/11/24 guaifenesin 600 mg tablet, 600 mg PO BID PRN chest congestion 11/25/24 12/11/24 extended release 12 hr (Mucinex) ondansetron HCl 8 mg tablet 8 mg PO Q6H PRN Nausea And Vomiting 11/25/24 12/11/24 polyethylene glycol 3350 17 gram 17 g PO DAILY PRN Constipation 11/25/24 12/11/24 oral powder packet (Miralax) Previous Rx's Medication Instructions Recorded lidocaine 4 % topical patch 1 patch topical DAILY PRN pain #30 09/10/24 ea hydromorphone 4 mg tablet 4 mg PO Q4H PRN pain 1 month #90 11/06/24 (Dilaudid) tabs warfarin 2 mg tablet 1 mg (1/2 x 2 mg) PO DAILY #20 tabs 12/01/24 morphine 30 mg tablet,extended 30 mg PO Q12H severe cancer pain 12/04/24 release (MS Contin) long acting control 1 month #60 tabs Results & Data (ED) Vital Signs Vital Signs - 24 hr 12/11/24 12:46 12/11/24 12:59 12/11/24 13:12 Temperature 36.9 C Temperature Source Oral Pulse Rate 108 H 100 H Pulse Rate [Apical] Pulse Rate from SpO2 Sensor 99 H Pulse Rhythm [Apical] Pulse Strength [Apical] Respiratory Rate 22 17 Respiratory Effort / Characteristics Non-Labored Spontaneous Respiratory Depth Normal Respiratory Pattern Regular Blood Pressure 143/84 H Blood Pressure [Right Arm] Blood Pressure Mean 103 Blood Pressure Mean [Right Arm] Pulse Oximetry 95 93 96 Oxygen Delivery Method Room Air Room Air Sepsis Recent Fever Within 48 Hours No Sepsis New/Unexplained Change in Mental Status No Sepsis Action Taken by Nursing No Action Required 12/11/24 13:13 12/11/24 13:14 12/11/24 13:21 Temperature Temperature Source Pulse Rate 105 H 98 H Pulse Rate [Apical] Pulse Rate from SpO2 Sensor 98 H Pulse Rhythm [Apical] Pulse Strength [Apical] Respiratory Rate 16 Respiratory Effort / Characteristics Respiratory Depth Respiratory Pattern Blood Pressure 127/81 Blood Pressure [Right Arm] Blood Pressure Mean 110 Blood Pressure Mean [Right Arm] Pulse Oximetry 93 Oxygen Delivery Method Sepsis Recent Fever Within 48 Hours Sepsis New/Unexplained Change in Mental Status Sepsis Action Taken by Nursing 12/11/24 13:30 12/11/24 13:33 12/11/24 14:00 Temperature Temperature Source Pulse Rate 100 H 96 H Pulse Rate [Apical] Pulse Rate from SpO2 Sensor 102 H 95 H Pulse Rhythm [Apical] Pulse Strength [Apical] Respiratory Rate 17 15 Respiratory Effort / Characteristics Respiratory Depth Respiratory Pattern Blood Pressure 126/75 Blood Pressure [Right Arm] Blood Pressure Mean 101 Blood Pressure Mean [Right Arm] Pulse Oximetry 93 93 Oxygen Delivery Method Sepsis Recent Fever Within 48 Hours Sepsis New/Unexplained Change in Mental Status Sepsis Action Taken by Nursing 12/11/24 14:00 12/11/24 14:20 12/11/24 14:30 Temperature Temperature Source Pulse Rate Pulse Rate [Apical] 90 Pulse Rate from SpO2 Sensor Pulse Rhythm [Apical] Pulse Strength [Apical] Respiratory Rate 18 Respiratory Effort / Characteristics Respiratory Depth Respiratory Pattern Blood Pressure 127/78 95/68 L Blood Pressure [Right Arm] 127/78 Blood Pressure Mean 98 78 Blood Pressure Mean [Right Arm] 94 Pulse Oximetry 94 Oxygen Delivery Method Room Air Sepsis Recent Fever Within 48 Hours Sepsis New/Unexplained Change in Mental Status Sepsis Action Taken by Nursing 12/11/24 14:30 12/11/24 16:07 12/11/24 17:16 Temperature Temperature Source Pulse Rate 87 88 Pulse Rate [Apical] 89 Pulse Rate from SpO2 Sensor 87 Pulse Rhythm [Apical] Regular Pulse Strength [Apical] Normal Respiratory Rate 15 18 Respiratory Effort / Characteristics Non-Labored Spontaneous Respiratory Depth Normal Respiratory Pattern Blood Pressure Blood Pressure [Right Arm] 150/82 H Blood Pressure Mean Blood Pressure Mean [Right Arm] 104 Pulse Oximetry 93 93 Oxygen Delivery Method Room Air Sepsis Recent Fever Within 48 Hours Sepsis New/Unexplained Change in Mental Status Sepsis Action Taken by Nursing 12/11/24 18:36 12/11/24 19:00 12/11/24 19:00 Temperature Temperature Source Pulse Rate 82 83 Pulse Rate [Apical] Pulse Rate from SpO2 Sensor 82 83 Pulse Rhythm [Apical] Pulse Strength [Apical] Respiratory Rate 13 17 Respiratory Effort / Characteristics Respiratory Depth Respiratory Pattern Blood Pressure 133/79 Blood Pressure [Right Arm] Blood Pressure Mean 96 Blood Pressure Mean [Right Arm] Pulse Oximetry 93 94 Oxygen Delivery Method Sepsis Recent Fever Within 48 Hours Sepsis New/Unexplained Change in Mental Status Sepsis Action Taken by Nursing Laboratory Data Attestation: I reviewed the patient's lab results. 12/11/24 12:55 12/11/24 12:55 Lab Results 12/11/24 12/11/24 12/11/24 Range/Units 12:55 13:15 15:04 WBC 16.99 H (4.8-10.8) K/ul RBC 5.06 (4.20-5.40) M/uL Hgb 14.9 (12.0-16.0) g/dl Hct 44.5 (37.0-47.0) % MCV 87.9 (80.0-100.0) fL MCH 29.4 (25.0-34.0) pg MCHC 33.5 (32.0-36.0) g/dL RDW Std Deviation 44.9 (36.4-46.3) fL RDW Coeff of Viky 13.9 (11.5-14.5) % Plt Count 452 H (130-400) K/uL MPV 9.3 L (9.4-12.4) fL Immature Gran % (Auto) 0.4 % Neut % (Auto) 75.3 % Lymph % (Auto) 10.4 % [place] % (Auto) 7.5 % Eos % (Auto) 5.8 % Baso % (Auto) 0.6 % Neut # (Auto) 12.80 H (1.40-6.50) K/uL Lymph # (Auto) 1.76 (1.20-3.40) K/uL [place] # (Auto) 1.28 H (0.11-0.59) K/uL Eos # (Auto) 0.98 H (0.00-0.50) K/uL Baso # (Auto) 0.10 (0.00-0.20) K/uL Immature Gran # (Auto) 0.07 (0.01-0.20) K/uL PT 13.8 H (9.0-12.0) Seconds INR 1.3 H (0.9-1.1) Sodium 137 (136-145) mmol/L Potassium 4.1 (3.5-5.1) mmol/L Chloride 101 (98-107) mmol/L Carbon Dioxide 25 (21-32) mmol/L Anion Gap 11 (3-11) BUN 10 (6-23) mg/dl Creatinine 0.82 (0.6-1.2) mg/dl Est Cr Clr Drug Dosing 56.4 ml/min eGFR 76.43 BUN/Creatinine Ratio 12.2 (10-20) Glucose 107 H (70-99(Fasting)) mg/dl Lactate 1.1 (0.4-2.0) mmol/L Calcium 9.1 (8.6-10.3) mg/dl Phosphorus 3.5 (2.5-4.9) mg/dl Magnesium 2.0 (1.7-2.4) mg/dl Total Bilirubin 0.6 (0.2-1.0) mg/dl AST 11 L (13-39) U/L ALT 8 (7-52) U/L Alkaline Phosphatase 64 (34-104) U/L Troponin I High Sens 8.7 (0-14) pg/ml Total Protein 6.5 (6.0-8.3) gm/dl Albumin 3.8 (3.4-5.0) gm/dl Globulin 2.7 (2.5-4.0) gm/dl Albumin/Globulin Ratio 1.4 (0.9-2) Lipase 8 L (11-82) U/L Procalcitonin 0.02 (0-0.5) ng/ml TSH 0.437 (0.300-4.500) uIu/ml Urine Color Yellow Urine Appearance Cloudy A (Clear) Urine pH 6.0 (4.5-7.5) Ur Specific [place] 1.015 (1.000-1.030) Urine Protein Negative (Negative) Urine Glucose (UA) Negative (Negative) Urine Ketones Trace H (Negative) Urine Blood Negative (Negative) Urine Nitrite Negative (Negative) Urine Bilirubin Negative (Negative) Urine Urobilinogen Negative (Negative) Ur Leukocyte Esterase 1+ H (Negative) Urine WBC (Auto) 0-5 (0-5) /hpf Urine RBC (Auto) 0-2 (0-2) /hpf U Hyaline Cast (Auto) 0-2 (0-2) /lpf U Epithel Cells (Auto) 6-10 H (0-2) /hpf Urine Bacteria (Auto) None Seen (None Seen) Adenovirus (PCR) Not Detected (NotDetected) B. pertussis DNA (PCR) Not Detected (NotDetected) B.parapertussis DNA PCR Not Detected (NotDetected) C. pneumoniae DNA (PCR) Not Detected (NotDetected) Coronavirus OC43 (PCR) Not Detected (NotDetected) Coronavirus HKU1 (PCR) Not Detected (NotDetected) Coronavirus 229E (PCR) Not Detected (NotDetected) SARS-CoV-2 (PCR) Not Detected (NotDetected) Coronavirus NL63 (PCR) Not Detected (NotDetected) Human Metapneumovir PCR Not Detected (NotDetected) Influenza Type A (PCR) Not Detected (NotDetected) Influenza Type B (PCR) Not Detected (NotDetected) M. pneumoniae (PCR) Not Detected (NotDetected) Parainfluenza 1 (PCR) Not Detected (NotDetected) Parainfluenza 2 (PCR) Not Detected (NotDetected) Parainfluenza 3 (PCR) Not Detected (NotDetected) Parainfluenza 4 (PCR) Not Detected (NotDetected) RSV (PCR) Not Detected (NotDetected) Entero/Rhino (PCR) Not Detected (NotDetected) Administered Medications Enoxaparin Sodium (Enoxaparin 80 Mg/0.8 Ml Syr) 70 mg SQ Q12 CALE Stop: 01/10/25 21:59 Last Admin: 12/11/24 22:23 Dose: 70 mg Documented By: MARY Famotidine (Famotidine 20 Mg Tab) 20 mg PO BID CALE Stop: 01/10/25 21:44 Last Admin: 12/11/24 22:22 Dose: 20 mg Documented By: MARY Lorazepam (Lorazepam 0.5 Mg Tab) 0.5 mg PO Q6H PRN PRN Reason: anxiety, insomnia, nausea from cancer Stop: 01/10/25 21:30 Last Admin: 12/11/24 22:31 Dose: 0.5 mg Documented By: MARY Morphine Sulfate (Morphine Sulfate Cr 15 Mg Tabcr) 30 mg PO Q12H CALE Stop: 12/25/24 21:59 Last Admin: 12/11/24 22:22 Dose: 30 mg Documented By: MARY Polyethylene Glycol (Polyethylene (Miralax) 17 Gm Pack) 17 gm PO DAILY PRN PRN Reason: Constipation Stop: 01/10/25 21:30 Last Admin: 12/11/24 22:50 Dose: 17 gm Documented By: MARY Zolpidem Tartrate (Zolpidem Tartrate 5 Mg Tab) 10 mg PO HS CALE Stop: 01/10/25 20:59 Last Admin: 12/11/24 22:22 Dose: 10 mg Documented By: MARY Discontinued Medications Sodium Chloride (Nss) 1,000 mls @ 999 mls/hr IV .Q1H1M ONE Stop: 12/11/24 15:23 Last Infusion: 12/11/24 20:50 Dose: Infused Documented By: Admin: 12/11/24 14:46 Dose: 999 mls/hr Documented By: GAVI Famotidine (Pepcid 20mg Iv Push) 20 mg in 5 mls @ 2.5 mls/min IV NOW STA Stop: 12/11/24 14:24 Last Admin: 12/11/24 14:46 Dose: 2.5 mls/min Documented By: GAVI Acetaminophen (Ofirmev) 1,000 mg in 100 mls @ 400 mls/hr IV NOW STA Stop: 12/11/24 19:06 Last Infusion: 12/11/24 20:46 Dose: Infused Documented By: Admin: 12/11/24 19:16 Dose: 400 mls/hr Documented By: EDI Cefepime HCl (Maxipime 2000mg) 2,000 mg in 20 mls @ 5 mls/min IV NOW STA; Protocol Stop: 12/11/24 18:58 Last Admin: 12/11/24 19:16 Dose: 5 mls/min Documented By: EDI Vancomycin HCl 1,500 mg/ (Sodium Chloride) 530 mls @ 200 mls/hr IV ONE ONE Stop: 12/12/24 00:53 Last Admin: 12/11/24 22:34 Dose: 200 mls/hr Documented By: MARY Ioversol (Optiray 320 100ml) 94 ml IV ONCE ONE Stop: 12/11/24 15:19 Last Admin: 12/11/24 15:18 Dose: 94 ml Documented By: NYLA Morphine Sulfate (Morphine Sulfate 4 Mg/Ml 1 Ml Carp\Vial) 4 mg IV NOW STA Stop: 12/11/24 14:27 Last Admin: 12/11/24 14:46 Dose: 4 mg Documented By: GAVI Morphine Sulfate (Morphine Sulfate 4 Mg/Ml 1 Ml Carp\Vial) 4 mg IV NOW STA Stop: 12/11/24 18:53 Last Admin: 12/11/24 19:15 Dose: 4 mg Documented By: EDI Ondansetron HCl (Ondansetron Inj 2 Mg/Ml 2 Ml Vial) 4 mg IV NOW STA Stop: 12/11/24 14:27 Last Admin: 12/11/24 14:46 Dose: 4 mg Documented By: GAVI Imaging Data Radiologist's Impression: Chest X-Ray 12/11/24 12:58 XR chest 1V portable CLINICAL HISTORY: Chest pain, nonspecific TECHNIQUE: Single frontal radiograph of the chest was obtained. Comparison: Comparison is made to chest radiograph 11/27/2024 FINDINGS: No lines and tubes are seen. The cardiomediastinal silhouette is obscured. Left lower lung predominant airspace opacities are seen. Moderate left pleural effusion is seen. ACDF is seen. IMPRESSION: Moderate left pleural effusion is seen with underlying atelectasis. Superimposed aspiration/pneumonia may be present in the left lung. ACT 112: Negative or not required by law. Electronically signed by: Adelso Hernandez M.D. 12/11/2024 1:44 PM Abdomen/Pelvis CT 12/11/24 14:[address] WITH IV CONTRAST HISTORY: Acute generalized abdominal pain in a patient with history of lung cancer abd pain, lung CA TECHNIQUE: Multiaxial CT images of the abdomen and pelvis were performed following the IV administration of 94 cc of Optiray, A dose lowering technique was utilized adhering to the principles of ALARA. COMPARISON STUDY: Chest CT of same day, CT abdomen and pelvis 09/08/2024, chest CT 11/25/2024 FINDINGS: Chest CT dictated separately. Pleural metastatic disease of the left hemithorax redemonstrated which overall is similar in appearance to the study from 11/25/2024. Partially imaged thoracic lymphadenopathy. Cardiomegaly. Nodular intralobular septal thickening of the left lung base. Scattered subcentimeter solid pulmonary nodules in the right lung base again noted including a 5 mm nodule in the right lower lobe on image 16 series 7. No pneumatosis or pneumoperitoneum. Unremarkable spleen, mildly atrophic pancreas, gallbladder and adrenal glands. The liver is within normal limits. Patent portal vein. Unremarkable kidneys. No hydronephrosis. Partially decompressed urinary bladder. Hysterectomy with pelvic floor relaxation. Atherosclerosis of the aorta without aneurysm. No pathologically enlarged lymph nodes within the abdomen. No bowel obstruction or bowel wall thickening. Anastomotic sutures in the mid sigmoid. Colonic diverticulosis. Moderate colonic fecal retention. No CT evidence of acute appendicitis. There are several small fat filled anterior abdominal hernias including a left paracentral infraumbilical fat filled hernia on image 254 series 7 with associated inflammatory stranding. Degenerative and postoperative changes of the spine. IMPRESSION: 1. Metastatic disease of the lower chest redemonstrated. Please refer to the same day chest CT for additional findings. 2. No definite evidence of metastatic disease within the abdomen or pelvis. 3. No bowel obstruction or bowel wall thickening. 4. Small fat filled infraumbilical hernia with associated inflammatory stranding is suspicious for incarcerated fat. Correlate with physical exam findings. 5. Colonic diverticulosis without acute diverticulitis. ACT 112: Negative or not required by law. The above report was generated using voice recognition software. It may contain grammatical, syntax or spelling errors. Electronically signed by: Sonny King M.D. 12/11/2024 3:[address] 12/11/24 14:25 CT chest diagnostic w con CLINICAL HISTORY: abd pain, lung ca TECHNIQUE: Multidetector row helical CT of the chest was performed with intravenous contrast. Coronal and sagittal reformations were obtained. Automated dose lowering techniques and/or adjustment according to patient size were utilized for this exam. CT DOSE: 2005.91 mGy.cm Comparison: Comparison is made to CTA chest 11/25/2024 FINDINGS: Lungs and pleura: Pleural thickening and interstitial thickening is seen in the left lung is seen with mild left effusion, there are additional small pulmonary nodules measuring up to 5 mm in the right lower lobe. Heart and pericardium: Heart size is normal. No pericardial effusion. Vessels: Unremarkable. Mediastinum and gómez: 18 mm right lower paratracheal node is seen. Chest wall and lower neck: Numerous left axillary nodes measure up to 16 mm, similar to prior exam. Left lower cervical nodes measure up to 13 mm. Right subclavian node measures 11 mm. Abdomen: For findings below the diaphragm, please refer to CT of the abdomen dated the same. Bones: Degenerative changes are seen in the spine. There is ACDF and T12 cement arthroplasty. IMPRESSION: 1. Prominent pleural and interstitial thickening are again seen on the left with stable pulmonary nodules. Lymphadenopathy in the bilateral cervical/subclavian region and left axillary region are seen as well as the previously noted mediastinal lymphadenopathy. 2. No acute abnormalities in the chest. ACT 112: Negative or not required by law. Electronically signed by: Adelso Hernandez M.D. 12/11/2024 3:40 PM Discharge Plan Visit Data Chief Complaint: Abdominal Pain Stated Complaint: BELLY PAIN, REF BY ONC, HAS SOME KIND OF INFECTION ED Provider: Ricardo Breen Discharge Problem: Acute generalized abdominal pain, Opioid-induced constipation, Metastatic primary lung cancer Patient Disposition: Admitted As Inpatient Discharge Instructions Interventions: ED Discharge Assessment Last Done: 12/11/24 21:23 Discharge Problem: Metastatic primary lung cancer Qualifiers: Laterality: left Qualified Code(s): C34.92 - Malignant neoplasm of unspecified part of left bronchus or lung
[2024-12-11] MEDS: OPTIRAY 320 100ml IV ONE (15:18)
--- NOTE | 2024-12-11 15:42 | CT Scan Report ---
CT chest diagnostic w con CLINICAL HISTORY: abd pain, lung ca TECHNIQUE: Multidetector row helical CT of the chest was performed with intravenous contrast. Coronal and sagittal reformations were obtained. Automated dose lowering techniques and/or adjustment accord ing to patient size were utilized for this exam. CT DOSE: 2005.91 mGy.cm Comparison: Comparison is made to CTA chest 11/25/2024 FINDINGS: Lungs and pleura: Pleural thickening and interstitial thickening is seen in the left lung is seen wit h mild left effusion, there are additional small pulmonary nodules measuring up to 5 mm in the right lower lobe. Heart and pericardium: Heart size is normal. No pericardial effusion. Vessels: Unremarkable. Mediastinum and gómez: 18 mm right lower paratracheal node is seen. Chest wall and lower neck: Numerous left axillary nodes measure up to 16 mm, similar to prior exam. L eft lower cervical nodes measure up to 13 mm. Right subclavian node measures 11 mm. Abdomen: For findings below the diaphragm, please refer to CT of the abdomen dated the same. Bones: Degenerative changes are seen in the spine. There is ACDF and T12 cement arthroplasty. IMPRESSION: 1. Prominent pleural and interstitial thickening are again seen on the left with stable pulmonary no dules. Lymphadenopathy in the bilateral cervical/subclavian region and left axillary region are seen as well as the previously noted mediastinal lymphadenopathy. 2. No acute abnormalities in the chest. ACT 112: Negative or not required by law. Electronically signed by: Adelso Hernandez M.D. 12/11/2024 3:40 PM
--- NOTE | 2024-12-11 15:46 | CT Scan Report ---
ABDOMEN AND PELVIS CT WITH IV CONTRAST HISTORY: Acute generalized abdominal pain in a patient with history of lung cancer abd pain, lung CA TECHNIQUE: Multiaxial CT images of the abdomen and pelvis were performed following the IV administrat ion of 94 cc of Optiray, A dose lowering technique was utilized adhering to the principles of ALARA. COMPARISON STUDY: Chest CT of same day, CT abdomen and pelvis 09/08/2024, chest CT 11/25/2024 FINDINGS: Chest CT dictated separately. Pleural metastatic disease of the left hemithorax redemonstra mayank which overall is similar in appearance to the study from 11/25/2024. Partially imaged thoracic ly mphadenopathy. Cardiomegaly. Nodular intralobular septal thickening of the left lung base. Scattered subcentimeter solid pulmonary nodules in the right lung base again noted including a 5 mm nodule in t he right lower lobe on image 16 series 7. No pneumatosis or pneumoperitoneum. Unremarkable spleen, mildly atrophic pancreas, gallbladder and ad renal glands. The liver is within normal limits. Patent portal vein. Unremarkable kidneys. No hydrone phrosis. Partially decompressed urinary bladder. Hysterectomy with pelvic floor relaxation. Atheroscl erosis of the aorta without aneurysm. No pathologically enlarged lymph nodes within the abdomen. No bowel obstruction or bowel wall thickening. Anastomotic sutures in the mid sigmoid. Colonic divert iculosis. Moderate colonic fecal retention. No CT evidence of acute appendicitis. There are several s mall fat filled anterior abdominal hernias including a left paracentral infraumbilical fat filled her radha on image 254 series 7 with associated inflammatory stranding. Degenerative and postoperative guerin ges of the spine. IMPRESSION: 1. Metastatic disease of the lower chest redemonstrated. Please refer to the same day chest CT for ad ditional findings. 2. No definite evidence of metastatic disease within the abdomen or pelvis. 3. No bowel obstruction or bowel wall thickening. 4. Small fat filled infraumbilical hernia with associated inflammatory stranding is suspicious for in carcerated fat. Correlate with physical exam findings. 5. Colonic diverticulosis without acute diverticulitis. ACT 112: Negative or not required by law. The above report was generated using voice recognition software. It may contain grammatical, syntax o r spelling errors. Electronically signed by: Sonny King M.D. 12/11/2024 3:45 PM
--- OUTSIDE RECORDS SUMMARY | 2024-12-11 17:51 | External Medical Summary | Summary of Care ---
Author Name Unknown Organization [facility] Address [address] [facility] [place] [address] Phone [phone] Care Team Providers Care Full Time Name Role Phone Mary Kaylan Whitney PA-C Primary Care Provider [phone] Reason for Visit * Reason Comments Dosage Adjustment Via Phone (anticoag Cl inic) Encounter Details Date Type Department Care Team (Latest Contact Info) Description 12/08/2024 5:40 PM EST Anticoagulation Pharmacy, [facility] [address] [facility] [address] [facility] [place] [phone] [facility] [address] [place] [address] Anticoagulation management encounter*; Paroxysmal atrial fibrillation (HCC); Acute deep vein thrombosis (DVT) of tibial vein of left lower extremity (HCC) Allergies Active Allergy Reactions Criticality Noted Date Comments Losartan Potassium Edema face/lips/tongue High 06/30 Fentanyl Itching 08/30/2016 Oxycodone 06/07/2023 Itching all over Penicillins Edema face/lips/tongue High 11/15/2001 Sulfa Antibiotics Other (Please comment) 2000 Urinary frequency Topiramate 04/09/2023 Other reaction(s): Blurry Vision Tramadol Other (Please comment) 01/01/2018 hallucinations documented as of this encounter (statuses as of 12/08/2024) Medications TYLENOL EXTRA STRENGTH 500 MG PO TABS Take 2 Tablets by mouth in the morning and 2 Tablets before bedtime. 0 7 Active VITAMIN D 1000 UNIT PO CAPS one capsule by mouth once a day Active Aspirin EC 81 MG Oral Tablet Delayed ReleaseIndicatio ns:Paroxysmal atrial fibrillation (HCC),Coronary artery disease involving [place] coronary artery of [place] heart without angina pectoris,Dyslipi demia, goal LDL below 70,HTN, goal below 140/90 Take 1 Tab by mouth daily. 1 Active Probiotic (Lactobacillus) Oral Capsule Take 1 Capsule by mouth daily. 30 Capsule 2 Active Saline Nasal Dorrance 0.65 % Nasal Solution ([place]) Administer 1 Dor[place] into nostril as needed for Congestion. 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 18 g 3 4 Active Full Kit Nebulizer Set [...] before bedtime. 90 Tablet 5 4 Active Zolpidem Tartrate 10 MG Oral Tablet (Ambien)Indicati ons:Insomnia, unspecified type Take 1 Tablet by mouth at bedtime as needed for Sleep. Jackson brand 30 Tablet 3 4 Active Doxycycline Hyclate 100 MG Oral CapsuleIndicatio ns:Acneiform rash Take 1 Capsule by mouth in the morning and 1 Capsule before bedtime. 60 Capsule 1 4 Active Famotidine 20 MG Oral Tablet (Pepcid) [...] the morning. 90 Tablet 2 4 Active Additional Information Patient not taking.Reported on 12/05/2024 Praluent 75 MG/ML Subcutaneous Solution Auto-injector (Alirocumab)Vanessa cations:Dyslipid emia, goal LDL below 70 Inject 75 mg (1 pen) under the skin every 14 days. 6 mL 3 11/12/2024 7:46 AM EST 4 Active HYDROcodone Bit-Homatrop MBr 5-1.5 MG/5ML Oral Solution (Hycodan)Indicat ions:Chronic cough Take 5 mL by mouth every 6 hours as needed for Cough. 473 mL 4 Active Jantoven 2 MG Oral Tablet Take 1 Tablet by mouth in the morning. 5 Active Morphine Sulfate ER 30 MG Oral Tablet Extended Release (Ms Contin) Take 1 Tablet by mouth in the morning and 1 Tablet before bedtime. Active Hospital, Clinic, or Other Facility Administered [...] as of this encounter (statuses as of 12/08/2024) Active Problems Problem Noted Date Diagnosed Date Anticoagulation management encounter 12/04/2024 Acute deep vein thrombosis ( DVT) of tibial vein of left lower extremity 12/04/2024 COPD, group B, by GOLD 2017 classification 07/07 Overview: Per COPD GOLD Classification Primary lung cancer 06/17/2024 Overview (06/19/2024): 3 cm left apex lesion with extensive lymph nodes, small pleural effusion Coronary artery disease invo lving rappahannock coronary artery of rapp[place]annock heart with angina pectoris 03/25/2023 Acquired absence of other sp ecified parts of digestive tract 11/10/2022 Arthrodesis status 11/10/2022 Complication of anesthesia 11/10/2022 Compression fracture of T12 vertebra 11/10/2022 Discitis 11/10/2022 Gout 11/10/2022 History of lumbar fusion 11/10/2022 Inflammation of sacroiliac joint 11/10/2022 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 Increased risk for Hereditary Cardiomyopathy. Please click the link below for a brief summary of current clinical management recommendations for Hypertrophic Cardiomyopathy. MYH7 Coronary artery disease invo lving rappahannock coronary artery of rappahannock heart without angina pectoris 09/26/2021 MISHRA (dyspnea [...] as of this encounter (statuses as of 12/08/2024) Resolved Problems Problem Noted Date Diagnosed Date [...] as of this encounter (statuses as of 12/08/2024) Immunizations Name Administration Dates Next Due COVID-19 mRNA, LNP-s, No Pre serve, 2-Dose Series ([employer]) 10/29/2021,02/07/2021,01/03/2021 PPD 04/27/2010, 0,04/08/2010,04/08,10/25/2006,10/25/2006 Pneumococcal Polysaccharide PPV23 [...] Standard Drinks/Week Comments Yes 1.7 (1 standard drin k = 0.6 oz pure alcohol) 12/05/2024 - Reports having an occasional drink. PHQ-2 Answer Date Recorded PHQ Adult Total Score 0 12/05/2024 Hunger Vital Sign Answer Date Recorded Within the past 12 months, y ou worried that your food would run out before you got the money to buy more. Never true 12/05/19 25 Within the past 12 months, t he food you bought just didn't last and you didn't have money to get more. Never true 12/05/2024 Childcare Answer Date Recorded Do you feel overwhelmed with taking care of a child, family member or friend? No 12/05/2024 Does your family need help f inding childcare? (Household - for ages 0-17 years) Not on file 12/05/2024 Clothing Answer Date Recorded Have you been unable to get clothing when it was really needed? No 12/05/2024 Is your family able to get c lothes or diapers when needed? (Household - for ages 0-17 years) Not on file 12/05/2024 Personal Safety Answer Date Recorded Do you feel unsafe or have concerns for your saf ety? No 12/05/2024 Do you have concerns for you r family's safety? (Household - for ages 0-17 years) Not on file 12/05/2024 Utilities Answer Date Recorded Do you have trouble paying y our heating, water, or electric bill? No 12/05/2024 Is your family able to pay t he heat, water, or electric bill? (Household - for ages 0-17 years) Not on file 12/05/2024 Does your family have access to good internet? (Household - for ages 0-17 years) Not on file 12/05/2024 Employment Status Answer Date Recorded Are you unemployed or without regular income? No 12/05/2024 Does the household have a re gular source of income? (Household - for ages 0-17 years) Not on file 12/05/2024 Social Connections Answer Date Recorded How often do you feel lonely or isolated from th ose around you? Never 12/05/2024 Financial Resource Strain Answer Date R ecorded Do you have any trouble payi ng for your medications, or do you think you might in the future? No 12/05/2024 Does your family have troubl e paying for medicine? (Household - for ages 0-17 years) Not on file 12/05/2024 Transportation Needs Answer Date Record ed Do you have trouble getting a ride to medical visits or work? (Adult - for ages 18 years and over) Not on file 12/05/2024 Does your family have a hard time getting a ride to doctors visits? (Household - for ages 0-17 years) Not on file 12/05/2024 Has lack of transportation k ept you from medical appointments, meetings, work, or from getting things needed for daily living? Check all that apply. No 12/05/2024 Do you (or your family) have trouble finding or paying for a ride (transportation)? (Household - for ages 0-17 years) Not on file 12/05/2024 Housing Stability Answer Date Recorded Do you currently live in a s helter or have no steady place to sleep at night? No 12/05/2024 Do you think you are at risk of becoming homeless? (Adult - for ages 18 years and over) Not on file 12/05/2024 Does your family worry about paying for your home or becoming homeless? (Household - for ages 0-17 years) Not on file 0 12/05/2024 Are you homeless or worried that you might be in the future? No 12/05/2024 Are you (or your family) mega eless or worried that you might be in the future? (Household - for ages 0-17 years) Not on file Food Insecurity Answer Date Recorded Do you need food for this week? No 12/05/2024 Are you able to get enough f ood for your family? (Household - for ages 0-17 years) Not on file 12/05/2024 Does your family need food t his week? (Household - for ages 0-17 years) Not on file 12/05/2024 Do you always have enough fo od for your family? (Household - for ages 0-17 years) Not on file 12/05/2024 Comments No Sex and Gender Information Value [...] documented in this encounter Progress Notes * Layla Beavers, [facility] - 12/08/2024 11:49 AM EST Medication Therapy Disease Management - Anticoagulation Patient: Florecita Pulido Quintana | : 1955 Subjective Contacts Contact Date/Time Type Contact Phone/Fax 12/08/2024 10:20 AM EST Phone (Incoming) Yluiana~[facility] (Other) [phone] 12/08/2024 11:49 AM EST Phone (Outgoing) Florecita Quintana "Myra" (Self) [phone] (M) Spoke to Patient Patient-Reported Symptoms: Patient Findings Positives: Change in health (diarrhea/nausea since starting warfarin on Dec 05) Negatives: Signs/symptoms of thrombosis, Signs/symptoms of bleeding, Change in alcohol use, Change in activity, Upcoming invasive procedure, Missed doses, Extra doses, Change in medications, Change in diet/appetite, Bruising Objective Current Warfarin Dose As of 12/08/2024 Warfarin maintenance plan: No maintenance plan INR Result As of 12/08/2024 INR goal: 2.0-3.0 INR used for dosin.3 (12/08/2024) Assessment & Plan Warfarin Plan As of 12/08/2024 Full warfarin instructions: 12/08: 1 mg; 12/09: 1 mg; 12/10: 1 mg Next INR check: 12/11/2024 Repeat PT/INR in 4 day(s) Weekly dose: establishing Additional Dosing Information: Description Faxed note to [facility] at [phone] to obtain INR on , 12/11/24 and 12/15/24 I spent a total of 10-19 minutes (exact time 10 mins) on the date of service in preparation, delivery, and documentation of the care provided to Florecita Quintana excluding any time spent in the performance of separately billed services or time spent by another provider/QHP. Layla Beavers RPh Clinical Pharmacist 12/08/2024, 11:49 AM * Mignon Mustafa CPhT - 12/08/2024 10:20 AM EST Caller's name: Yuliana Mamta call back number(OFFICE NUMBER FOR ): [phone] Reason for call: nursing facility, [facility], calling with INR results. Result is 2.3 which was drawnon 12/08/24. Patient is not being discharged. Thank you, Mignon Mustafa Java Android Developer [facility] 12/08/2024,10:20 AM documented in this encounter Plan of Treatment Upcoming Encounters Date Type Department Care Team (Late st Contact Info) Description 12/10/2024 11:30 AM EST Office Visit Hematology/Oncology [facility] [address] [place] [address] Kourtney Hernandez CRNP [address] [facility] [place] [address] 12/11/2024 5:40 PM EST [facility]ticoagulation Pharmacy, [place] [facility] [address] [phone] [facility] [address] [place] [facility] [place] [address] 12/12/2024 9:45 AM EST Pharmacy Pharmacy Hematology Oncology [address] [address] [facility] Hem/Onc [facility] [place] [address] 12/15/2024 5:40 PM EST Anticoagulation Pharmacy, [place] [facility] [address] [facility] [address] [phone] [facility] [address] [place] [address] 02/02/2025 9:45 AM EDT Imaging Radiology [address], [place] [address] [facility] [place] [address] 02/10/2025 9:30 AM EDT Office Visit Hematology/Oncology [facility] [address] [place], [place] [phone] Cortez Simmons MD [address] [facility] [place] [address] 05/25/2025 1:30 PM EDT Office Visit Cardiology, [facility] [address] [place] [address] Pablo Romano MD [address] [place] [address] Health Maintenance Due Date Last Done Comments Alpha-1 Antitrypsin 1971 Cologuard 1998 Fecal Occult Blood Test 1998 Sigmoidoscopy 1998 Zoster Vaccines (1 of 2) 2003 Pneumococcal Vaccine: 50+ Years (2 of 2 - PCV) 10/21/2017 10/21/2016 Adult Wellness Visit 2019 DTap/Tdap Vaccines (2 - Td or Tdap) 06/09/2019 06/09/2009 Mammogram 05/07/2024 05/07/2023, 04/26, 04/13/2022, Additional history exists COVID-19 Vaccine ( season) 2024 10/29/2021, 02/07/2021, 01/03/2021 O2 ASSESSMENT COMPLETED IN PAST YEAR FOR COPD 06/25/2025 06/25/2024 GFR 10/14/2025 10/14/2024, 07/27, 07/08/2024, Additional history exists TSH 10/14/2025 10/14/2024, 05/2024, 03/06/2023, Additional history exists Depression Screening 12/05/2025 12/05/2024 Albumin/Creatinine Ratio 02/28/2026 02/28/2023 DXA Scan 06/11/2030 [...] Procedure Name Priority Date/Time Associated Diagnosis Comments OUTSIDE LAB-PT/INR Routine 12/08/2024 documented in this encounter Results * OUTSIDE LAB-PT/INR (12/08/2024) INR-OUTSIDE LAB 2.3 us History Per Patient LABORATORY Final Result documented in this encounter Visit Diagnoses Diagnosis Anticoagulation management encounter- Primary Encounter for therapeutic drug monitoring Paroxysmal atrial fibrillation (HCC) Atrial fibrillation Acute deep vein thrombosis (DVT) of tibial vein of left lower extremity (HCC) documented in this encounter Advance Directives [...] with: Not Discussed Care Teams Full Time Relationship Specialty Start Date End Date Kaylan Hernandez PA-C [address] [facility] [place] [address] PCP - General Physician Information Technology Audit Manager 09/16/24 documented as of this encounter
--- OUTSIDE RECORDS SUMMARY | 2024-12-11 17:51 | External Medical Summary ---
Author Name Unknown Address Unknown Organization K09:[facility] [place] [address] Laboratory Report Ordering Provider Test Date Status JANET VILLARREAL 12/10/2024 12:23:27 Final Observation Date Value Abnormality Reference (Units ) Status WBC, Total 12/10/2024 12:23:27 15.24 Above high normal 4 .00-10.80 (K/uL) Final RBC 12/10/2024 12:23:27 4.68 3.85-5.15 (M/uL) Final Hemoglobin 12/10/2024 12:23:27 14.0 12.0-15.3 (g/dL) Final HCT 12/10/2024 12:23:27 42.7 36.0-45.2 (%) Final MCV 12/10/2024 12:23:27 91.2 81.5-97.5 (fL) Final MCH 12/10/2024 12:23:27 29.9 27.0-34.0 (pg) Final MCHC 12/10/2024 12:23:27 32.8 32.0-36.0 (g/dL) Final RDW 12/10/2024 12:23:27 14.5 11.5-15.5 (%) Final Platelets 12/10/2024 12:23:27 427 Above high normal 14 0-400 (K/uL) Final MPV 12/10/2024 12:23:27 8.9 6.6-11.1 ( fL) Final Performing Location [facility] [place] [address]
--- OUTSIDE RECORDS SUMMARY | 2024-12-11 17:51 | External Medical Summary | Summary of Care ---
Author Name Unknown Organization [facility] Address [address] [place] [address] Phone [phone] Care Team Providers Care Glove Turner Name Role Phone Mary Kayaln A SHRUTHI Primary Care Provider [phone] Reason for Referral * Evaluate & Treat - Unlimited Visits (Within 3 days (urgent)) - Pending Review Specialty Diagnoses / Procedures Referred By Contac t Referred To Contact ANTI-COAG CLINIC / Pharmacy Diagnoses Anticoagulation management encounter Paroxysmal atrial fibrillation (HCC) Acute deep vein thrombosis (DVT) of tibial vein of left lower extremity (HCC) Nisa Simmons MD [address] [place] [address] Phone: tel: fax: Referral ID Status Reason Start Date Expiration Date Visits Requested Visits Authorized [id number] Pending Review Specialty Services Required 12/04/2024 06/01/2025 99 99 Question Answer Referral Priority Within 3 days (urgent) Where should this appointment be scheduled? Gloria Comments Anticoagulation referral for management of: Warfarin Indication and INR goal for Warfarin Management: VTE: Treatment of Deep Vein Thrombosis, INR Goal: 2.0 - 3.0 Relevant History: Cancer and afib Enoxaparin bridging required? TBD on a case by case basis Minimum frequency patient should be seen in person for medication management: as appropriate per clinical condition and patient status By my signature, I understand that my patient Florecita Quintana will have her medication therapy managed by the [facility] Medication Therapy Disease Management [facility] ([facility]) per established policies, procedures, and protocols. I also certify that this referral may serve as an initiation of service for the management of drug therapy in the above noted patient. [facility] providers will be responsible for scheduling patient visits, obtaining appropriate laboratory studies, and adjusting medication management therapy per patient's need, in addition to those roles spelled out in the clinic policy, procedures, and drug management protocols. I understand that the service provided by the [facility] is voluntary and have informed patient that they can refuse the service at their discretion. I am aware that the [facility] Clinic will provide me with a copy of the patient encounter via my [employer]. I authorize the [facility] Clinic to carry out these activities on my behalf. I consider this program to be a necessary part of the patient's medical care. Reason for Visit * Reason Onset Date Comments Hospital Follow-Up 12/01/2024 Encounter Details Date Type Department Care Team (Late st Contact Info) Description 12/01/2024 Telephone Hematology/Oncology [facility] [place] [address] [place] [phone] Nisa Simmons MD [address] [place] [address] Hospital Follow-Up Allergies Active Allergy Reactions Criticality Noted Date Comments Losartan Potassium Edema face/lips/tongue High 06/30 Fentanyl Itching 08/30/2016 Oxycodone 06/07/2023 Itching all over Penicillins Edema face/lips/tongue High 11/15/2001 Sulfa Antibiotics Other (Please comment) 2000 Urinary frequency Topiramate 04/09/2023 Other reaction(s): Blurry Vision Tramadol Other (Please comment) 01/01/2018 hallucinations documented as of this encounter (statuses as of 12/04/2024) Medications TYLENOL EXTRA STRENGTH 500 MG PO TABS Take 2 Tablets by mouth in the morning and 2 Tablets before bedtime. 0 7 Active VITAMIN D 1000 UNIT PO CAPS one capsule by mouth once a day Active Aspirin EC 81 MG Oral Tablet Delayed ReleaseIndicatio ns:Paroxysmal atrial fibrillation (HCC),Coronary artery disease involving [place] coronary artery of [place] heart without angina pectoris,Dyslipi demia, goal LDL below 70,HTN, goal below 140/90 Take 1 Tab by mouth daily. 1 Active Probiotic (Lactobacillus) Oral Capsule Take 1 Capsule by mouth daily. 30 Capsule 2 Active BiPAP every night at bedtime. Active Saline Nasal [place] 0.65 % Nasal Solution ([place]) Administer 1 [place] into nostril as needed for Congestion. Active Albuterol Sulfate (2.5 MG/3ML) 0.083% Inhalation Nebulization Solution (Proventil)Indic ations:Bronchiti s, complicated,Bundle Sorter ellen bronchitis, unspecified chronic bronchitis type (HCC) use 1 nebulizer vial as needed for cough, shortness of breath, and wheeze 75 mL 3 Active Ipratropium-Albu terol 0.5-2.5 (3) MG/3ML Inhalation Solution (Duoneb)Indicati ons:Bronchitis, complicated,Bundle Sorter ellen bronchitis, unspecified chronic bronchitis type (HCC) [...] mouth at bedtime as needed for Sleep. Apison brand 30 Tablet 3 4 Active Clindamycin [...] as of this encounter (statuses as of 12/04/2024) Active Problems Problem Noted Date Diagnosed Date Anticoagulation management encounter 12/04/2024 Acute deep vein thrombosis ( DVT) of tibial vein of left lower extremity 12/04/2024 COPD, group B, by GOLD 2017 classification 07/07 Overview: Per COPD GOLD Classification Primary lung cancer 06/17/2024 Overview (06/19/2024): 3 cm left apex lesion with extensive lymph nodes, small pleural effusion Coronary artery disease invo lving [place] coronary artery of [place] heart with angina pectoris 03/25/2023 Acquired absence of other sp ecified parts of digestive tract 11/10/2022 Arthrodesis status 11/10/2022 Complication of anesthesia 11/10/2022 Compression fracture of T12 vertebra 11/10/2022 Discitis 11/10/2022 Gout 11/10/2022 History of lumbar fusion 11/10/2022 Inflammation of sacroiliac joint 11/10/2022 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 Increased risk for Hereditary Cardiomyopathy. Please click the link below for a brief summary of current clinical management recommendations for Hypertrophic Cardiomyopathy. MYH7 Coronary artery disease invo lving [place] coronary artery of [place] heart without angina pectoris 09/26/2021 MISHRA (dyspnea [...] as of this encounter (statuses as of 12/04/2024) Resolved Problems Problem Noted Date Diagnosed Date [...] as of this encounter (statuses as of 12/04/2024) Immunizations Name Administration Dates Next Due COVID-19 mRNA, LNP-s, No Pre serve, 2-Dose Series (Pfizer) 10/29/2021,02/07/2021,01/03/2021 PPD 04/27/2010, 0,04/08/2010,04/08,10/25/2006,10/25/2006 Pneumococcal Polysaccharide PPV23 (Pneumovax) 10/21/2016 Season Influenza, Quad, PF, Adjuvanted, 65+ Yrs, IM (FLUAD) 08/16/2020 Seasonal Influenza Vac., MDV , IM, 0.5 mL (Fluzone) 09/09/2014,12/30/2010,10/18/2007,01/04 Seasonal Influenza Virus Vac cine, Unspecified Formulation [...] documented in this encounter Miscellaneous Notes * Addendum Note - Nisa Simmons MD - 12/04/2024 2:58 PM ESTAddended by: NISA SIMMONS on: 12/04/2024 02:58 PM Modules accepted: Orders * Telephone Encounter - Nisa Simmons MD - 12/04/2024 2:57 PM EST Today I talked to Palliative Care team at [facility], then moving forward with home hospice * Addendum Note - Asa Davidson [facility] - 12/03/2024 2:38 PM ESTAddended by: ASA DAVIDSON on: 12/03/2024 02:38 PM Modules accepted: Orders * Telephone Encounter - Asa Davidson RP - 12/03/2024 2:36 PM EST Pt seen today in coumadin clinic for INR monitoring. She was discharged with warfarin 2 mg tablets, but it has been on hold since Sunday due to supratherapeutic INR. Please sign pended referral for [facility] to continue to manage. Thanks! Asa Davidson, PharmD, BCACP Clinical Pharmacist Medication Therapy Disease Management 12/03/2024, 2:37 PM * Telephone Encounter - Bebe Dean RN - 12/02/2024 10:01 AM EST Discharge summary printed to be scanned into chart. * Telephone Encounter - Tamiko Rodriguez OSA - 12/02/2024 9:54 AM EST Pt is scheduled and is aware * Telephone Encounter - Lorri Wagner RN - 12/01/2024 3:05 PM EST Florecita Quintana was discharged from [facility] on 12/01/24. Please schedule a Hem/Onc follow up. documented in this encounter Plan of Treatment Upcoming Encounters Date Type Department Care Team (Late st Contact Info) Description 12/05/2024 5:40 PM EST [facility], [place] [facility] [address] [facility] [phone] [facility] [address] [place] [address] 12/08/2024 12:00 PM EST Telemedicine Family Practice [facility] [address] [facility] [place], [place] [address] Kaylan Hernandez PA-C [address] [place] [address] 12/08/2024 5:40 PM EST [facility], [place] [facility] [address] [facility] [place] [phone] [facility] [address] [place] [address] 12/10/2024 11:30 AM EST Office Visit Hematology/Oncology [facility] [address] [facility] [place] [phone] Kourtney Hernandez CRNP [address] [place] [address] 12/12/2024 9:45 AM EST Pharmacy Pharmacy Hematology Oncology [facility] [address] [place] [address] [facility] Hem/Onc [address] [place] [address] 02/02/2025 9:45 AM EDT Imaging Radiology [facility] [address] [facility] [address] [place] [address] 02/10/2025 9:30 AM EDT Office Visit Hematology/Oncology [facility] [address] [facility] [place] [phone] Nisa Simmons MD [address] [facility] [place] [address] 05/25/2025 1:30 PM EDT Office Visit Cardiology, [facility] [address] [facility] [place] [address] Pablo Romano MD [address] [place] [address] Scheduled Referrals Name Type Priority Associated Diagnoses Orde r Schedule ANTI-COAGULATION REFERRAL OP Referral Within 3 days (urgent) Anticoagulation management encounter Paroxysmal atrial fibrillation (HCC) Acute deep vein thrombosis (DVT) of tibial vein of left lower extremity (HCC) Ordered: 12/04/2024 Health Maintenance Due Date Last Done Comments [...] as of this encounter Visit Diagnoses Diagnosis Anticoagulation management [...] Directives occurred with: Not Discussed Care Teams Glove Turner Relationship Specialty Start Date End Date Mary Kaylan SHRUTHI Whitney [address] [place] [address] PCP - General Physician Flat Optical Element Maker 09/16/24 documented as of this encounter
--- OUTSIDE RECORDS SUMMARY | 2024-12-11 17:51 | External Medical Summary ---
Author Name Unknown Address Unknown Organization K09:[facility] [address] [place] [address] Laboratory Report Ordering Provider Test Date Status JANET VILLARREAL 12/10/2024 12:23:27 Final Observation Date Value Abnormality Reference (Units ) Status BUN 12/10/2024 12:23:27 11 6-20 (mg/dL) Final Creatinine 12/10/2024 12:23:27 0.8 0.5-1.0 (mg/dL) Final Glomerular filtration rate/1.73 sq M.predicted [Volume Rate/Area] in Serum, Plasma or Blood by Creatinine-based formula (CKD-EPI) 12/10/2024 12:23:27 74 >=60 (mL/min) Final eGFR is calculated based on the CKD-EPI 2020 equation. Sodium 12/10/2024 12:23:27 135 135-146 (m mol/L) Final Potassium 12/10/2024 12:23:27 4.8 3.5-5.1 (m mol/L) Final Cl 12/10/2024 12:23:27 100 98-107 (mm ol/L) Final CO2 12/10/2024 12:23:27 24 22-32 (mmo l/L) Final Anion gap 12/10/2024 12:23:27 11 7-15 (mmol /L) Final Glucose 12/10/2024 12:23:27 102 70-120 (mg /dL) Final Albumin 12/10/2024 12:23:27 3.5 Below low normal 3.8 -5.0 (g/dL) Final AST (Aspartate aminotransferase) 12/10/2024 12:23:27 13 10-35 (U/L) Fin al Alk Phos 12/10/2024 12:23:27 69 35-130 (U/ L) Final Bilirubin, Total 12/10/2024 12:23:27 0.5 <=1 .2 (mg/dL) Final Calcium 12/10/2024 12:23:27 9.1 8.4-10.2 ( mg/dL) Final Protein 12/10/2024 12:23:27 5.9 Below low normal 6.0 -8.3 (g/dL) Final ALT (Alanine aminotransferase) 12/10/2024 12:23:27 7 Below low normal 10-35 (U/L) Final Performing Location [facility] [address] [place] [address]
--- OUTSIDE RECORDS SUMMARY | 2024-12-11 17:51 | External Medical Summary | Summary of Care ---
Author Name Unknown Organization [facility] Address [address] [facility] [place] [address] Phone [phone] Care Team Providers Care Tool Repairer Name Role Phone Ginnymeggan Kaylan A SHRUTHI Primary Care Provider [phone] Encounter Details Date Type Department Care Team (Late st Contact Info) Description 12/05/2024 Result Scan Unspecified Department Yvonne Early, [facility] [address] [facility] [address] <No scans attached> Allergies Active Allergy Reactions Criticality Noted Date Comments Losartan Potassium Edema face/lips/tongue High 06/30 Fentanyl Itching 08/30/2016 Oxycodone 06/07/2023 Itching all over Penicillins Edema face/lips/tongue High 11/15/2001 Sulfa Antibiotics Other (Please comment) 2000 Urinary frequency Topiramate 04/09/2023 Other reaction(s): Blurry Vision Tramadol Other (Please comment) 01/01/2018 hallucinations documented as of this encounter (statuses as of 12/09/2024) Medications TYLENOL EXTRA STRENGTH 500 MG PO TABS Take 2 Tablets by mouth in the morning and 2 Tablets before bedtime. 0 7 Active VITAMIN D 1000 UNIT PO CAPS one capsule by mouth once a day Active Aspirin EC 81 MG Oral Tablet Delayed ReleaseIndicatio ns:Paroxysmal atrial fibrillation (HCC),Coronary artery disease involving [place] coronary artery of [place] heart without angina pectoris,Dyslipi demia, goal LDL below 70,HTN, goal below 140/90 Take 1 Tab by mouth daily. 1 Active Probiotic (Lactobacillus) Oral Capsule Take 1 Capsule by mouth daily. 30 Capsule 2 Active Saline Nasal [place] 0.65 % Nasal Solution ([place]) Administer 1 [place] into nostril as needed for Congestion. Active Albuterol Sulfate (2.5 MG/3ML) 0.083% Inhalation Nebulization Solution (Proventil)Indic ations:Bronchiti s, complicated,Kiln Worker ellen bronchitis, unspecified chronic bronchitis type (HCC) use 1 nebulizer vial as needed for cough, shortness of breath, and wheeze 75 mL 3 Active Ipratropium-Albu terol 0.5-2.5 (3) MG/3ML Inhalation Solution (Duoneb)Indicati ons:Bronchitis, complicated,Kiln Worker ellen bronchitis, unspecified chronic bronchitis type [...] mouth at bedtime as needed for Sleep. 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 Malignant neoplasm of upper lobe of left lung Simple chronic bronchitis 12/08/2024 Anticoagulation management encounter 12/04/2024 Acute deep vein thrombosis ( DVT) of tibial vein of left lower extremity 12/04/2024 COPD, group B, by GOLD 2017 classification 07/07 Overview: Per COPD GOLD Classification Primary lung cancer 06/17/2024 Overview (06/19/2024): 3 cm left apex lesion with extensive lymph nodes, small pleural effusion Coronary artery disease invo lving [place] coronary artery of [place] heart with angina pectoris 03/25/2023 Acquired absence of other sp ecified parts of digestive tract 11/10/2022 Arthrodesis status 11/10/2022 Complication of anesthesia 11/10/2022 Compression fracture of T12 vertebra 11/10/2022 Discitis 11/10/2022 Gout 11/10/2022 History of lumbar fusion 11/10/2022 Inflammation of sacroiliac joint 11/10/2022 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 Increased risk for Hereditary Cardiomyopathy. Please click the link below for a brief summary of current clinical management recommendations for Hypertrophic Cardiomyopathy. MYH7 Coronary artery disease invo lving [place] coronary artery of [place] heart without angina pectoris 09/26/2021 MISHRA (dyspnea [...] as of this encounter (statuses as of 12/09/2024) Resolved Problems Problem Noted Date Diagnosed Date [...] as of this encounter (statuses as of 12/09/2024) Immunizations Name Administration Dates Next Due COVID-19 mRNA, LNP-s, No Pre serve, 2-Dose Series (Validity Sensors) 10/29/2021,02/07/2021,01/03/2021 PPD 04/27/2010, 0,04/08/2010,04/08,10/25/2006,10/25/2006 Pneumococcal Polysaccharide PPV23 [...] Ruth Cummins RN documented in this encounter Plan of Treatment Upcoming Encounters Date Type Department Care Team (Late st Contact Info) Description 12/10/2024 11:30 AM EST Office Visit Hematology/Oncology [facility] [place] [address] [place] [phone] Kourtney Hernandez CRNP [address] [place] [address] [place] [address] 12/11/2024 5:40 PM EST Anticoagulation Pharmacy, [place] [facility] [address] [facility] [phone] [facility] [address] [place] [address] 12/12/2024 9:45 AM EST Pharmacy Pharmacy Hematology Oncology [facility] [address] [place] [address] [facility], [facility] Hem/Onc [address] [place] [address] 12/15/2024 5:40 PM EST Anticoagulation Pharmacy, [place] [facility] [address] [facility] [phone] [facility] [address] [place] [address] 02/02/2025 9:45 AM EDT Imaging Radiology [facility] [address] [facility] [address] [facility] [place] [phone] 02/10/2025 9:30 AM EDT Office Visit Hematology/Oncology [facility] [address] [facility] [place] [phone] Cortez Simmons MD [address] [facility] [place] [address] 05/25/2025 1:30 PM EDT Office Visit Cardiology, [facility] [address] [place] [address] Pablo Romano MD [address] [place] [address] Health Maintenance Due Date Last Done Comments Alpha-1 Antitrypsin 1971 Zoster Vaccines (1 of 2) 1972 Cologuard 1998 Fecal Occult Blood Test 1998 Sigmoidoscopy 1998 Pneumococcal Vaccine: 50+ Years (2 of 2 [...] 10/14/2025 10/14/2024, 0205/2024, 03/06/2023, Additional history exists Depression Screening 12/05/2025 [...] Name Priority Date/Time Associated Diagnosis Comments OUTSIDE LAB RESULTS 12/05/2024 documented in this encounter Results * OUTSIDE LAB RESULTS (12/05/2024) 12/05/2024 Yvonne Early [facility] [place] [facility] Result documented in this encounter Advance Directives * [...] Directives occurred with: Not Discussed Care Teams Tool Repairer Relationship Specialty Start Date End Date Mary Kaylan SHRUTHI [place] [address] [place] [address] PCP - General Physician Associate Marketing Manager 09/16/24 documented as of this encounter
--- OUTSIDE RECORDS SUMMARY | 2024-12-11 17:51 | External Medical Summary | Summary of Care ---
Author Name Unknown Organization [facility] Address [address] [facility] [place] [address] Phone [phone] Care Team Providers Care Terminologist Name Role Phone Kaylan Hernandez PA-C Primary Care Provider [phone] Encounter Details Date Type Department Care Team (Late st Contact Info) Description 12/08/2024 12:00 PM [facility] [address] [facility] [place] [address] Kaylan Hernandez PA-C [address] [facility] [place] [address] Malignant neoplasm of upper lobe of left lung (HCC)*; Metastasis to mediastinal lymph node (HCC); Simple chronic bronchitis (HCC); Paroxysmal atrial fibrillation (HCC); Acute deep vein thrombosis (DVT) of tibial vein of left lower extremity (HCC); Compression fracture of T12 vertebra, initial encounter (HCC); Malaise and fatigue; Primary malignant neoplasm of left lung (HCC); Moderate persistent asthma without complication Allergies Active Allergy Reactions Criticality Noted Date [...] ns:Paroxysmal atrial fibrillation (HCC),Coronary artery disease involving robinson coronary artery of robinson heart without angina pectoris,Dyslipi demia, goal LDL below 70,HTN, goal below 140/90 Take 1 Tab by mouth daily. 1 Active Probiotic (Lactobacillus) Oral Capsule Take 1 Capsule by mouth daily. 30 Capsule 2 Active Saline Nasal Ivor 0.65 % Nasal Solution (Vanderwagen) Administer 1 Ivor into nostril as needed for Congestion. Active Albuterol Sulfate (2.5 MG/3ML) 0.083% Inhalation Nebulization Solution (Proventil)Indic ations:Bronchiti s, complicated,Chemical Project Engineer ellen bronchitis, unspecified chronic bronchitis type (HCC) use 1 nebulizer vial as needed for cough, shortness of breath, and wheeze 75 mL 3 Active Ipratropium-Albu terol 0.5-2.5 (3) MG/3ML Inhalation Solution (Duoneb)Indicati ons:Bronchitis, complicated,Chemical Project Engineer ellen bronchitis, unspecified chronic bronchitis type (HCC) [...] mouth at bedtime as needed for Sleep. 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 Increased risk for Hereditary Cardiomyopathy. Please click the link below for a brief summary of current clinical management recommendations for Hypertrophic Cardiomyopathy. MYH7 Coronary artery disease invo lving robinson coronary artery of robinson heart without angina pectoris 09/26/2021 MISHRA (dyspnea [...] mRNA, LNP-s, No Pre serve, 2-Dose Series ([employer]) 10/29/2021,02/07/2021,01/03/2021 PPD 04/27/2010, 0,04/08/2010,04/08,10/25/2006,10/25/2006 Pneumococcal Polysaccharide PPV23 [...] documented in this encounter Progress Notes * Kaylan HernandezSHRUTHI - 12/08/2024 12:28 PM EST Images from the original note were not included. Patient location: HOME. I was in a hospital or clinic location. After connecting through televideo,patient was verified with two unique identifiers. Patient (or authorized legal fuels sales representative) was then informed that this was a Telemedicine visit and being conducted confidentially over secure lines. Methods to assure confidentiality were taken. Patient acknowledged consent and understanding of pr ivacy and security of the Telemedicine visit. The patient agreed to participate. History of Present Illness Myra Quintana is a 69 year old female that presents for No chief complaint on file. Patient is a 69-year-old female who presents to the Emergency Room on November 25. She was then admitted to [facility] through the 01 of December. Has been nauseated since starting coumadin. Breathing is better. Chest tube pulled. Site looks good. No home oxygen use. Bp 120/80; pulse ox 95%. She has no energy. Sees oncology. Will discuss chemo. Doesn't feel like it is working. While in hospital, stopped lisinopril. Blood pressure has been normal. Has nursing in the home 2 days a week. Appetite diminished. No appetite or thirst. Sleep normal. Just stopped prednisone. Seeing Pallitive Care. Urination/ bowel movements normal. Using morphine and hydromorphone as needed for pain. Physical Exam There were no vitals filed for this visit. General: alert, no distress, well nourished, well developed, comfortable, and cooperative Head: Normocephalic, No masses, lesions, tenderness or abnormalities Eye Exam: PERRLA, extraocular movements intact, conjunctiva are pink and non- injected, sclera clear Lungs: chest symmetric with normal AP diameter, no chest deformities noted, normal respiratory rateand rhythm, diaphragmatic excursion normal Neuro Exam: alert & oriented x 3 with fluent speech I have reviewed the following results: None Assessment and Plan Malignant neoplasm of upper lobe of left lung (HCC) (Primary) Metastasis to mediastinal lymph node (HCC) - CBC; Future; Expected date: 12/08/2024 Simple chronic bronchitis (HCC) Paroxysmal atrial fibrillation (HCC) Acute deep vein thrombosis (DVT) of tibial vein of left lower extremity (HCC) Compression fracture of T12 vertebra, initial encounter ([facility]) Malaise and fatigue - CBC; Future; Expected date: 12/08/2024 - COMPREHENSIVE METABOLIC PANEL; Future; Expected date: 12/08/2024 Primary malignant neoplasm of left lung (HCC) Moderate persistent asthma without complication Continue with current medications and referrals. Wrap-Up Time: I spent a total of 30-39 minutes (exact time 36 mins) on the date of service in preparation, delivery, and documentation of the care provided to Florecita Quintana excluding any time spent in the performance of separately billed services. Telemedicine: Patient location: HOME. I was in a hospital or clinic location. After connecting through televideo,patient was verified with two unique identifiers. Patient (or authorized legal fuels sales representative) was then informed that this was a Telemedicine visit and being conducted confidentially over secure lines. Methods to assure confidentiality were taken. Patient acknowledged consent and understanding of pr ivacy and security of the Telemedicine visit. The patient agreed to participate. documented in this encounter Plan of Treatment Upcoming Encounters Date Type Department Care Team (Latest Contact Info) Description 12/08/2024 5:40 PM EST Anticoagulation Pharmacy, [address] [place] [phone] [place] [facility] [address] [place], [place] [address] [address] Anticoagulation management encounter*; Paroxysmal atrial fibrillation (HCC); Acute deep vein thrombosis (DVT) of tibial vein of left lower extremity (HCC) 12/10/2024 11:30 AM EST Office Visit Hematology/Oncolog y [facility]ajas [place] [facility] [phone] Kourtney Hernandez CRNP [address] [place] [address] 12/11/2024 5:40 PM EST Anticoagulation Pharmacy, [address] [facility] [place] [phone] [facility] [address] [place] [facility] [place] [address] 12/12/2024 9:45 AM EST Pharmacy Pharmacy Hematology Oncology [facility] [place] [address] [place] [facility] [place] [address] [facility], [facility] Hem/Onc [address] [place] [facility] [place] [address] 12/15/2024 5:40 PM EST Anticoagulation Pharmacy, [facility] [address] [place] [phone] [facility] [address] [place] [facility] [place] [address] 02/02/2025 9:45 AM EDT Imaging Radiology [facility] 1st [facility] [address] [place] [phone] 02/10/2025 9:30 AM EDT Office Visit Hematology/Oncolog y [facility] [address] [facility] [place] [phone] Cortez Simmons MD [address] [facility] [place] [address] 05/25/2025 1:30 PM EDT Office Visit Cardiology, [facility] [address] [place] [address] Pablo Romano MD [address] [place] [address] Scheduled Orders Name Type Priority Associated Diagnoses Orde r Schedule CBC Lab Routine Metastasis to mediastinal lymph node (HCC) Malaise and fatigue Expected: 12/08/2024 (Approximate), Expires: 12/08/2025 COMPREHENSIVE METABOLIC PANEL Lab Routine Malaise and fatigue Expected: 12/08/2024 (Approximate), Expires: 12/08/2025 Health Maintenance Due Date Last Done Comments [...] 07/08/2024, Additional history exists TSH 10/14/2025 10/14/2024, 02/0 05/2024, 03/06/2023, Additional history exists Depression Screening [...] unspecified malignant neoplasm of intrathoracic lymph nodes Simple chronic bronchitis (HCC) Simple chronic bronchitis Paroxysmal atrial fibrillation (HCC) Atrial fibrillation Acute deep vein thrombosis (DVT) of tibial vein of left lower extremity (HCC) Compression fracture of T12 vertebra, initial encounter (HCC) Malaise and fatigue Other malaise and fatigue Primary malignant neoplasm of left lung (HCC) Moderate persistent asthma without complication Unspecified asthma Anticoagulation management encounter- Primary Encounter for therapeutic [...] Directives occurred with: Not Discussed Care Teams Terminologist Relationship Specialty Start Date End Date Kaylan Hernandez PA-C [address] [place] [address] PCP - General Physician Hole Digger Truck Driver 09/16/24 documented as of this encounter
--- OUTSIDE RECORDS SUMMARY | 2024-12-11 17:51 | External Medical Summary | Summary of Care ---
Author Name Unknown Organization [facility] Address [address] [facility] [place] [address] Phone [phone] Care Team Providers Care Electrical Intern Name Role Phone Mary Kaylan Devonte HAWKINS Primary Care Provider [phone] Reason for Visit * Reason Comments Dosage Adjustment Via Phone (anticoag Cl inic) * Evaluate & Treat - Unlimited Visits (Within 3 days (urgent)) - Pending Review Specialty Diagnoses / Procedures Referred By Aiden t Referred To Contact ANTI-COAG CLINIC / Pharmacy Diagnoses Anticoagulation management encounter Paroxysmal atrial fibrillation (HCC) Acute deep vein thrombosis (DVT) of tibial vein of left lower extremity (HCC) Cortez Simmons MD [address] [place] [address] Phone: tel: fax: Referral ID Status Reason Start Date Expiration Date Visits Requested Visits Authorized [id number] Pending Review Specialty Services Required 12/04/2024 06/01/2025 99 [phone] Encounter Details Date Type Department Care Team (Latest Contact Info) Description 12/05/2024 5:40 PM EST [facility], [place] [facility] [address] [facility] [place] [phone] [place] [facility] [address] [facility] [place] [address] Anticoagulation management encounter*; Paroxysmal atrial fibrillation (HCC); [...] as of this encounter (statuses as of 12/05/2024) Medications TYLENOL EXTRA STRENGTH 500 MG PO TABS Take 2 Tablets by mouth in the morning and 2 Tablets before bedtime. 0 7 Active VITAMIN D 1000 UNIT PO CAPS one capsule by mouth once a day Active Aspirin EC 81 MG Oral Tablet Delayed ReleaseIndicatio ns:Paroxysmal atrial fibrillation (HCC),Coronary artery disease involving big lagoon coronary artery of big lagoon heart without angina pectoris,Dyslipi demia, goal LDL below 70,HTN, goal below 140/90 Take 1 Tab by mouth daily. 1 Active Probiotic (Lactobacillus) Oral Capsule Take 1 Capsule by mouth daily. 30 Capsule 2 Active Saline Nasal [place] 0.65 % Nasal Solution (Latta) Administer 1 [place] into nostril as needed for Congestion. Active Albuterol Sulfate (2.5 MG/3ML) 0.083% Inhalation Nebulization Solution (Proventil)Indic ations:Bronchiti s, complicated,Utility Bill Collection Clerk ellen bronchitis, unspecified chronic bronchitis type (HCC) use 1 nebulizer vial as needed for cough, shortness of breath, and wheeze 75 mL 3 Active Ipratropium-Albu terol 0.5-2.5 (3) MG/3ML Inhalation Solution (Duoneb)Indicati ons:Bronchitis, complicated,Utility Bill Collection Clerk ellen bronchitis, unspecified chronic bronchitis type (HCC) [...] mouth at bedtime as needed for Sleep. Hardin brand 30 Tablet 3 4 Active Doxycycline [...] morning and 1 Tablet before bedtime. Active predniSONE 20 MG Oral Tablet (Deltasone) Take 1 tablet for 3 days. 12/05/19 25 Active Hospital, Clinic, or Other Facility Administered [...] as of this encounter (statuses as of 12/05/2024) Active Problems Problem Noted Date Diagnosed Date Anticoagulation management encounter 12/04/2024 Acute deep vein thrombosis ( DVT) of tibial vein of left lower extremity 12/04/2024 COPD, group B, by GOLD 2017 classification 07/07 Overview: Per COPD GOLD Classification Primary lung cancer 06/17/2024 Overview (06/19/2024): 3 cm left apex lesion with extensive lymph nodes, small pleural effusion Coronary artery disease invo lving big lagoon coronary artery of big lagoon heart with angina pectoris 03/25/2023 Acquired absence of other sp ecified parts of digestive tract 11/10/2022 Arthrodesis status 11/10/2022 Complication of anesthesia 11/10/2022 Compression fracture of T12 vertebra 11/10/2022 Discitis 11/10/2022 Gout 11/10/2022 History of lumbar fusion 11/10/2022 Inflammation of sacroiliac joint 11/10/2022 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 Increased risk for Hereditary Cardiomyopathy. Please click the link below for a brief summary of current clinical management recommendations for Hypertrophic Cardiomyopathy. MYH7 Coronary artery disease invo lving big lagoon coronary artery of big lagoon heart without angina pectoris 09/26/2021 MISHRA [...] as of this encounter (statuses as of 12/05/2024) Resolved Problems Problem Noted Date Diagnosed Date [...] as of this encounter (statuses as of 12/05/2024) Immunizations Name Administration Dates Next Due COVID-19 [...] documented in this encounter Progress Notes * Nneka Yvonne Jacobsnelson, [facility] - 12/05/2024 12:47 PM EST Medication Therapy Disease Management - Anticoagulation Patient: Florecita Quintana | : 1955 Subjective Contacts Contact Date/Time Type Contact Phone/Fax 12/05/2024 02:46 PM EST Phone (Outgoing) Tamiko Quintana (Emergency Contact) [phone] (M) Left Message 12/05/2024 02:47 PM EST Phone (Outgoing) Florecita Quintana "Myra" (Self) [phone] (M) Spoke to Patient Patient-Reported Symptoms: Patient Findings Negatives: Signs/symptoms of thrombosis, Signs/symptoms of bleeding, Change in health, Change in alcohol use, Change in activity, Upcoming invasive procedure, Missed doses, Extra doses, Change in medications, Change in diet/appetite, Bruising Objective Current Warfarin Dose As of 12/05/2024 Warfarin maintenance plan: No maintenance plan INR Result As of 12/05/2024 INR goal: 2.0-3.0 INR used for dosin.1 (12/05/2024) Assessment & Plan Warfarin Plan As of 12/05/2024 Full warfarin instructions: 12/05: 1 mg; 12/06: 1 mg; 12/07: 1 mg Next INR check: 12/08/2024 Repeat PT/INR in 3 day(s) Weekly dose: establishing Additional Dosing Information: Per 12/01 Dr Troy JAEGER recommends continuing Coumadin at this time due to new DVT. Will continue to follow up on this as patient is currently looking towards home hospice. Called and spoke with patient. Notes that she is ambulating less, eating more snacks as opposed to full meals. Denies any currently bleeding or bruising. Reviewed s/sx to monitor for. Will plan to significantly reduce dose x3 days and repeat INR as previously scheduled on 12/08. Description Faxed note to [facility] at [phone] to obtain INR on 12/05/24 and 12/08/24 I spent a total of 10-19 minutes (exact time 15 mins) on the date of service in preparation, delivery, and documentation of the care provided to Florecita Quintana excluding any time spent in the performance of separately billed services or time spent by another provider/QHP. Yvonne Early [facility] Clinical Pharmacist 12/05/2024, 12:47 PM * Gabrielle Han CPhT - 12/05/2024 10:47 AM EST [facility] nurse Rachel calling in today's INR 2.1. Gabrielle Han CPhT, [place] Career Placement Services Counselor II [facility] documented in this encounter Plan of Treatment Upcoming Encounters Date Type Department Care Team (Late st Contact Info) Description 12/08/2024 12:00 PM EST Telemedicine Family Practice [place] [address] [address] [place] [address] Mary Kaylan SHRUTHI [place] [address] [facility] [place] [address] 12/08/2024 5:40 PM EST Anticoagulation Pharmacy, [address] [place] [phone] Brayden [place] [address] [place] [address] 12/10/2024 11:30 AM EST Office Visit Hematology/Oncology [facility] [address] [place] [phone] Kourtney Hernandez CRNP [address] [place] [address] 12/12/2024 9:45 AM EST Pharmacy Pharmacy Hematology Oncology [facility] [address] [place] [address] Gm, [facility] Hem/Onc [address] [place] [address] 02/02/2025 9:45 AM EDT Imaging Radiology [facility] 1st [facility] [address] [facility] [place] [address] 02/10/2025 9:30 AM EDT Office [facility] [address] [facility] [place] [place] [phone] Cortez Simmons MD [address] [facility] [address] [place] [address] 05/25/2025 1:30 PM EDT Office Visit Cardiology, [facility] [address] [facility] [place] [address] Pablo Romano MD [address] [facility] [place] [address] Health Maintenance Due Date Last Done Comments [...] Date/Time Associated Diagnosis Comments OUTSIDE LAB-PT/INR Routine 12/05/2024 documented in this encounter Results * OUTSIDE LAB-PT/INR (12/05/2024) INR-OUTSIDE LAB 2.1 us History Per Patient LABORATORY Final Result [...] Directives occurred with: Not Discussed Care Teams Electrical Intern Relationship Specialty Start Date End Date Mary Kaylan SHRUTHI [place] [address] [place] [address] PCP - General Physician Electronics Engineering Manager 09/16/24 documented as of this encounter
--- OUTSIDE RECORDS SUMMARY | 2024-12-11 17:51 | External Medical Summary | Summary of Care ---
Author Name Unknown Organization [facility] Address [address] [facility] [place] [address] Phone [phone] Care Team Providers Care Territory Service Representative Name Role Phone Ginnymeggan Kaylan Devonte HAWKINS Primary Care Provider [phone] Encounter Details Date Type Department Care Team (Late st Contact Info) Description 12/08/2024 Result Scan Unspecified Department Layla Beavers, [facility] [address] [facility] [address] <No scans attached> Allergies Active Allergy Reactions Criticality Noted Date Comments Losartan Potassium Edema face/lips/tongue High 06/30 Fentanyl Itching 08/30/2016 Oxycodone 06/07/2023 Itching all over Penicillins Edema face/lips/tongue High 11/15/2001 Sulfa Antibiotics Other (Please comment) 2000 Urinary frequency Topiramate 04/09/2023 Other reaction(s): Blurry Vision Tramadol Other (Please comment) 01/01/2018 hallucinations documented as of this encounter (statuses as of 12/10/2024) Medications TYLENOL EXTRA STRENGTH 500 MG PO TABS Take 2 Tablets by mouth in the morning and 2 Tablets before bedtime. 0 7 Active VITAMIN D 1000 UNIT PO CAPS one capsule by mouth once a day Active Aspirin EC 81 MG Oral Tablet Delayed ReleaseIndicatio ns:Paroxysmal atrial fibrillation (HCC),Coronary artery disease involving [place] coronary artery of [place] heart without angina pectoris,Dyslipi demia, goal LDL below 70,HTN, goal below 140/90 Take 1 Tab by mouth daily. 1 Active Probiotic (Lactobacillus) Oral Capsule Take 1 Capsule by mouth daily. 30 Capsule 2 Active Saline Nasal [place] 0.65 % Nasal Solution ([place]) Administer 1 [place] into nostril as needed for Congestion. Active Albuterol Sulfate (2.5 MG/3ML) 0.083% Inhalation Nebulization Solution (Proventil)Indic ations:Bronchiti s, complicated,Conceptor ellen bronchitis, unspecified chronic bronchitis type (HCC) use 1 nebulizer vial as needed for cough, shortness of breath, and wheeze 75 mL 3 Active Ipratropium-Albu terol 0.5-2.5 (3) MG/3ML Inhalation Solution (Duoneb)Indicati ons:Bronchitis, complicated,Conceptor ellen bronchitis, unspecified chronic bronchitis type (HCC) [...] mouth at bedtime as needed for Sleep. 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 Increased risk for Hereditary Cardiomyopathy. Please click the link below for a brief summary of current clinical management recommendations for Hypertrophic Cardiomyopathy. MYH7 Coronary artery disease invo lving stebbins coronary artery of stebbins heart without angina pectoris 09/26/2021 MISHRA (dyspnea [...] as of this encounter (statuses as of 12/10/2024) Resolved Problems Problem Noted Date Diagnosed Date [...] as of this encounter (statuses as of 12/10/2024) Immunizations Name Administration Dates Next Due COVID-19 mRNA, LNP-s, No Pre serve, 2-Dose Series (X5 Group) 10/29/2021,02/07/2021,01/03/2021 PPD 04/27/2010, 0,04/08/2010,04/08,10/25/2006,10/25/2006 Pneumococcal Polysaccharide PPV23 [...] 12/10/2024 11:30 AM EST Office Visit Hematology/Oncology [facility] [address] [place] [address] Kourtney Hernandez CRNP [address] [place] [address] [place] [address] 12/11/2024 5:40 PM EST [facility]tico[facility] Pharm[facility], [place] [facility] [address] [facility] [phone] [facility] [address] [place] [address] 12/12/2024 9:45 AM EST Pharmacy Pharmacy Hematology Oncology [facility] [address] [place] [address] [facility] Hem/Onc [address] [place] [address] 12/15/2024 5:40 PM EST Anticoagulation Pharmacy, [place] [facility] [address] [place] [phone] [facility] [address] [place] [address] 02/02/2025 9:45 AM EDT Imaging Radiology [facility] 1st [facility] 132 [facility] [place] [phone] 02/10/2025 9:30 AM EDT Office Visit Hematology/Oncology [facility] [place] [address] Cortez Simmons MD 200 [facility] [place] [address] 05/25/2025 1:30 PM EDT Office Visit Cardiology, [facility] [address] [place] [address] Pablo Romano MD [address] [place] [address] Health Maintenance Due Date Last Done Comments [...] Date/Time Associated Diagnosis Comments OUTSIDE LAB RESULTS 12/08/2024 documented in this encounter Results * OUTSIDE LAB RESULTS (12/08/2024) 12/08/2024 Layla Beavers [facility] LABORATORY Taylor l Result documented in this [...] Directives occurred with: Not Discussed Care Teams Territory Service Representative Relationship Specialty Start Date End Date Mary Kaylan SHRUTHI Whitney [address] [place] [address] PCP - General Physician Product Merchandiser 09/16/24 documented as of this encounter
--- OUTSIDE RECORDS SUMMARY | 2024-12-11 17:51 | External Medical Summary ---
Author Name Unknown Address Unknown Organization K09:[facility] [place] [address] Laboratory Report Ordering Provider Test Date Status JANET VILLARREAL 12/10/2024 12:23:27 Final Observation Date Value Abnormality Reference (Units ) Status SYNC LEUKOCYTES IN BLOOD BY AUTOMATED COUNT 12/10/2024 12:23:27 15.24 Above high normal 4.00-10.80 (K/uL) Final Segs 12/10/2024 12:23:27 77.9 Above high normal 40.0-75.0 (%) Final Lymphs % 12/10/2024 12:23:27 8.5 Below low normal 18.0-42.0 (%) Final Monos 12/10/2024 12:23:27 6.5 1.0-11.0 (%) Final Eosinophils 12/10/2024 12:23:27 6.8 Above high normal 0.0-6.0 (%) Final Basos 12/10/2024 12:23:27 0.3 0.0-2.0 (%) Final Absolute Segs 12/10/2024 12:23:27 11.86 Above high normal 1.80-7.70 (K/uL) Final Lymphs, absolute 12/10/2024 12:23:27 1.30 1.00-4.80 (K/ul) Final Monos, Abs 12/10/2024 12:23:27 0.99 0.00-1.10 (K/uL) Final Eos, Abs 12/10/2024 12:23:27 1.04 Above high normal 0.00-0.70 (K/uL) Final Basos, Abs 12/10/2024 12:23:27 0.05 0.00-0.20 (K/uL) Final Performing Location [facility] [place] [address]
--- OUTSIDE RECORDS SUMMARY | 2024-12-11 17:51 | External Medical Summary | Summary of Care ---
Author Name Unknown Organization [facility] Address [address] [facility] [place] [address] Phone [phone] Care Team Providers Care Painting Worker Name Role Phone Mary Kaylan Whitney PA-C Primary Care Provider [phone] Reason for Visit * Reason Comments Outpatient Testing Encounter Details Date Type Department Care Team (Late st Contact Info) Description 12/10/2024 12:20 PM EST Laboratory Laboratory [facility] [address] [place] [address] [facility] [address] [address] [facility] [place] [address] Metastasis to mediastinal lymph node (HCC); Malaise and fatigue; Malignant neoplasm of upper lobe of left lung (HCC) Allergies Active Allergy Reactions Criticality [...] ns:Paroxysmal atrial fibrillation (HCC),Coronary artery disease involving [place] coronary artery of [place] heart without angina pectoris,Dyslipi demia, goal LDL below 70,HTN, goal below 140/90 Take 1 Tab by mouth daily. 1 Active Probiotic (Lactobacillus) Oral Capsule Take 1 Capsule by mouth daily. 30 Capsule 2 Active Saline Nasal [place] 0.65 % Nasal Solution ([place]) Administer 1 [place] into nostril as needed for Congestion. Active Albuterol Sulfate (2.5 MG/3ML) 0.083% Inhalation Nebulization Solution (Proventil)Indic ations:Bronchiti s, complicated,Application Developer ellen bronchitis, unspecified chronic bronchitis type (HCC) use 1 nebulizer vial as needed for cough, shortness of breath, and wheeze 75 mL 3 Active Ipratropium-Albu terol 0.5-2.5 (3) MG/3ML Inhalation Solution (Duoneb)Indicati ons:Bronchitis, complicated,Application Developer ellen bronchitis, unspecified chronic bronchitis type (HCC) [...] mouth at bedtime as needed for Sleep. [place] brand 30 Tablet 3 4 Active Doxycycline [...] morning and 1 Tablet before bedtime. Active Warfarin Sodium 1 MG Oral Tablet (Coumadin) Take 1 Tablet by mouth in the morning. 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 Increased risk for Hereditary Cardiomyopathy. Please click the link below for a brief summary of current clinical management recommendations for Hypertrophic Cardiomyopathy. MYH7 Coronary artery disease invo lving [place] coronary artery of [place] heart without angina pectoris 09/26/2021 MISHRA (dyspnea [...] Care Team (Late st Contact Info) Description 12/11/2024 5:40 PM EST [facility]tico[facility], [place] [facility] [address] [facility] [phone] [facility] [address] [place] [address] 12/12/2024 9:45 AM EST Pharmacy Pharmacy Hematology Oncology [facility] [address] [place] [address] [facility] Hem/Onc [address] [place] [address] 12/15/2024 5:40 PM EST Anticoagulation Pharm[facility], [place] [facility] [address] [facility] [phone] [facility] [address] [place] [address] 12/24/2024 11:30 AM EST [facility] [address] [place] [phone] Kourtney Hernandez, GHANSHYAM [address] [place] [address] 02/02/2025 9:45 AM EDT Imaging Radiology [facility] 1st [facility] 132 [facility] [place] [phone] 02/10/2025 9:30 AM EDT Office [facility] [address] [place] [phone] Cortez Simmons MD [address] [place] [address] 05/25/2025 1:30 PM EDT Office Visit Cardiology, [facility] 132 [facility] [place] [address] Pablo Romano MD [address] [place] [address] Pending Results Name Type Priority Associated Diagnoses Date /Time COMPREHENSIVE METABOLIC PANEL Lab STAT Malignant neoplasm of upper lobe of left lung (HCC) 12/10/2024 12:23 PM EST Health Maintenance Due Date Last Done Comments [...] Priority Date/Time Associated Diagnosis Comments DIFFERENTIAL, AUTOMATED Routine 12/10/2024 12:23 PM EST Malignant neoplasm of upper lobe of left lung (HCC) CBC Routine 12/10/2024 12:23 PM EST Malignant neoplasm of upper lobe of left lung (HCC) CBC Routine 12/10/2024 12:23 PM EST Malignant neoplasm of upper lobe of left lung (HCC) documented in this encounter Results * (ABNORMAL) DIFFERENTIAL, AUTOMATED (12/10/2024 12:23 PM EST) WBC 15.24(H) 4.00 - 10.80 K/uL 12/10/2024 12:28 PM EST [facility] 56-02 Neutrophils % 77.9(H) 40.0 - 75.0 % 12/10/2024 12:28 PM EST [facility] 56-02 Lymphocytes % 8.5(L) 18.0 - 42.0 % 12/10/2024 12:28 PM EST [facility] 56-02 Monocytes % 6.5 1.0 - 11.0 % 12/10/2024 12:28 PM EST [facility] 56-02 Eosinophils % 6.8(H) 0.0 - 6.0 % 12/10/2024 12:28 PM EST [facility] 56-02 Basophils % 0.3 0.0 - 2.0 % 12/10/2024 12:28 PM EST [facility] 56-02 Absolute Neutrophils 11.86(H) 1.80 - 7.70 K/uL 12/10/2024 12:28 PM EST [facility] 56-02 Absolute Lymphocytes 1.30 1.00 - 4.80 K/ul 12/10/2024 12:28 PM EST [facility] 56- Absolute Monocytes 0.99 0.00 - 1.10 K/uL 12/10/2024 12:28 PM EST [facility] 56- Absolute Eosinophils 1.04(H) 0.00 - 0.70 K/uL 12/10/2024 12:28 PM EST [facility] 56- Absolute Basophils 0.05 0.00 - 0.20 K/uL 12/10/2024 12:28 PM EST [facility] 56- Blood Venous blood specimen / Unknown Venipuncture / Unknown 12/10/2024 12:23 PM EST 12/10/2024 12:23 PM EST us Kourtney MORRISSEY LAB BLOOD ORDERABLES Taylor vences Result [facility] [address] [place], [place] [id number] * (ABNORMAL) CBC (12/10/2024 12:23 PM EST) WBC 15.24(H) 4.00 - 10.80 K/uL 12/10/2024 12:28 PM [facility] 56- RBC 4.68 3.85 - 5.15 M/uL 12/10/2024 12:28 PM [facility] 56- HGB 14.0 12.0 - 15.3 g/dL 12/10/2024 12:28 PM [facility] 56- HCT 42.7 36.0 - 45.2 % 12/10/2024 12:28 PM [facility] 56- MCV 91.2 81.5 - 97.5 fL 12/10/2024 12:28 PM EST [facility] 56- MCH 29.9 27.0 - 34.0 pg 12/10/2024 12:28 PM [facility] 56- MCHC 32.8 32.0 - 36.0 g/dL 12/10/2024 12:28 PM [facility] 56- RDW 14.5 11.5 - 15.5 % 12/10/2024 12:28 PM EST [facility] 56- PLT 427(H) 140 - 400 K/uL 12/10/2024 12:28 PM EST [facility] 56- MPV 8.9 6.6 - 11.1 fL 12/10/2024 12:28 PM EST [facility] 56- Blood Venous blood specimen / Unknown Venipuncture / Unknown 12/10/2024 12:23 PM EST 12/10/2024 12:23 PM EST Kourtney MORRISSEY LAB BLOOD ORDERABLES Taylor l Result [facility] 56- 200 [facility] [place] [address] documented in this encounter Visit Diagnoses Diagnosis 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
--- OUTSIDE RECORDS SUMMARY | 2024-12-11 17:51 | External Medical Summary | Summary of Care ---
Author Name Unknown Organization [facility] Address [address] [facility] [place] [address] Phone [phone] Care Team Providers Care Machine Helper Name Role Phone Ginnymeggan Kaylan Whitney PA-C Primary Care Provider [phone] Encounter Details Date Type Department Care Team (Late st Contact Info) Description 12/10/2024 Orders Only PATIENT PORTAL DO NOT DELETE THIS DEPT USED BY [place] [address] Allergies Active Allergy Reactions Criticality Noted Date [...] ns:Paroxysmal atrial fibrillation (HCC),Coronary artery disease involving [place] coronary artery of [place] heart without angina pectoris,Dyslipi demia, goal LDL below 70,HTN, goal below 140/90 Take 1 Tab by mouth daily. 1 Active Probiotic (Lactobacillus) Oral Capsule Take 1 Capsule by mouth daily. 30 Capsule 2 Active Saline Nasal [place] 0.65 % Nasal Solution ([place]) Administer 1 [place] into nostril as needed for Congestion. Active Albuterol Sulfate (2.5 MG/3ML) 0.083% Inhalation Nebulization Solution (Proventil)Indic ations:Bronchiti s, complicated,Thread Winder ellen bronchitis, unspecified chronic bronchitis type (HCC) use 1 nebulizer vial as needed for cough, shortness of breath, and wheeze 75 mL 3 Active Ipratropium-Albu terol 0.5-2.5 (3) MG/3ML Inhalation Solution (Duoneb)Indicati ons:Bronchitis, complicated,Thread Winder ellen bronchitis, unspecified chronic bronchitis type (HCC) [...] mouth at bedtime as needed for Sleep. 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 Increased risk for Hereditary Cardiomyopathy. Please click the link below for a brief summary of current clinical management recommendations for Hypertrophic Cardiomyopathy. MYH7 Coronary artery disease invo lving [place] coronary artery of [place] heart without angina pectoris 09/26/2021 MISHRA (dyspnea [...] mRNA, LNP-s, No Pre serve, 2-Dose Series ([employer]) 10/29/2021,02/07/2021,01/03/2021 PPD 04/27/2010, 0,04/08/2010,04/08,10/25/2006,10/25/2006 Pneumococcal Polysaccharide PPV23 [...] AM EST Office Visit Hematology/Oncology Christine [place] [address] [place] [phone] Kourtney Hernandez CRNP [address] [place] [address] 12/11/2024 5:40 PM EST Anticoagulation Pharmacy, [address] [facility] [phone] [facility] [address] [place] [address] 12/12/2024 9:45 AM EST Pharmacy Pharmacy Hematology Oncology [facility] [address] [place] [address] [facility] Hem/Onc [address] [place] [address] 12/15/2024 5:40 PM EST Anticoagulation Pharmacy, [place] [address] [facility] [place] [phone] [facility] [address] [place] [address] 02/02/2025 9:45 AM EDT Imaging Radiology [address] [place] [phone] 02/10/2025 9:30 AM EDT Office Visit Hematology/Oncology [facility] 200 [facility] [place] [phone] Cortez Simmons MD 200 [facility] [place] [address] 05/25/2025 1:30 PM EDT Office Visit Cardiology, [facility] [address] [place] [address] Pablo Romano MD [address] [place] [address] Health Maintenance Due Date Last Done Comments [...] occurred with: Not Discussed Care Teams Machine Helper Relationship Specialty Start Date End Date Kaylan Hernandez PA-C [address] [place] [address] PCP - General Physician Esol Teacher Assistant 09/16/24 documented as of this encounter
[2024-12-11] MEDS: CEFEPIME 2000MG 2,000 MG/20 ML SYR IV STA (19:16)
[2024-12-11] MEDS: ACETAMINOPHEN 1,000 MG/100 ML VIAL IV STA (19:16)
--- NOTE | 2024-12-11 19:28 | History & Physical Report ---
<Statement entered by Miky Ruby DO - 12/11/24 20:12> I have seen and examined the patient and have discussed the case with the provider above. I have reviewed the advanced practitioner's documentation, and I agree with, and take responsibility for that plan of care. Patient seen and evaluated while still in ED. Did admit to some chills at home. Abdominal pain mostly when she eats. Feels as though her shortness of breath is maybe a little bit worse since she was discharged Reviewed recent hospital admission. Patient had thoracentesis with pigtail catheter for malignant pleural effusion at that time. Reviewed most recent imaging, personally reviewed chest CT images, small left pleural effusion with what appears to be possible consolidation in the left lower lobe. Constitutional: Patient mildly ill in appearance Lungs: Decreased breath sounds left base, dullness left base, a few rare scattered wheezes Suspect patient has referred abdominal pain from a left lower lobe pneumonia and possible left empyema in the setting of known lung cancer Patient also immuno compromised with her cancer and chemotherapy Aggressively treat infectious process with cefepime and Vanco as outlined below Bowel regimen Further plan of care as outlined below and discussed with GUALBERTO Date of Service December 11, 2024 Assessment & Plan (1) Pleural effusion: (2) Anxiety associated with cancer diagnosis: (3) Anxiety: (4) Primary lung squamous cell carcinoma: (5) Pulmonary embolism: (6) Abdominal pain: Plan The patient is a 69-year-old female with a past medical history of lung CA, recent lower extremity DVT who presents to the ED on 12/11/2024 with abdominal pain Assessment and plan: Suspected left lower lobe pneumonia: Continue IV cefepime/Vanco, check MRSA swab, chest imaging stable Reports some intermittent shortness of breath and chills, leukocytosis noted Blood cultures pending, no hypoxia noted, continue to monitor Abdominal pain: No clear etiology, A/P CT without obstruction or metastatic disease Continue home pain regimen of MS Contin and p.o. Dilaudid, IV Dilaudid as needed for breakthrough pain Give Dulcolax suppositories to help with constipation, could also be referred pain from lower chest mets Hx small cell lung ca: Takes Tagrisso at home, imaging looks stable Hold Tagrisso while infectious workup underway New left lower extremity DVT (12/01/24): INR subtherapeutic, 1.3, start therapeutic Lovenox Daily INR Hx GERD: Continue Pepcid Hx hypothyroidism: Continue levothyroxine A total of 60 minutes was spent on chart review/facilitating plan of care/reviewing diagnostic data/discussion with consultants Patient is a DNR/DNI DVT prophylaxis: Therapeutic Lovenox History of Present Illness Chief Complaint: Abdominal pain Primary Care Provider: Cj Rico MD Patient is a 69-year-old female with a past medical history of metastatic lung cancer, asthma, atrial fibrillation, HLD, GERD, osteomyelitis, anxiety, recent acute left DVT, colon resection, hypothyroidism who presents to the ED on 12/11/2024 with complaints of abdominal pain and a few episodes of diarrhea. Patient reports intermittent chills denies any fevers. Reported that abdominal pain started a few days ago. Reports shortness of breath with any exertion. Reports abdominal pain is worse after eating. Also reports that she has not had bowel movement since Sunday. She is on chronic pain medication. Reports her abdominal pain has been worsening since then. She otherwise denies any nausea/vomiting. Denies any respiratory symptoms. Patient was recently admitted and discharged on 12/01/2024 with complaints of shortness of breath at this time the patient had a moderate left-sided pleural effusion and had pigtail insertion by Dr. Field. Fluid studies at that time were consistent with adenocarcinoma. Her chest tube was removed on 11/27/2024. At this time, the patient complained of abdominal pain which improved after the chest tube was removed. She was also started on Coumadin for an acute lower extremity DVT in her left posterior tibial vein. On arrival to the ED today, labs remarkable for WBC 16, platelets 452, INR 1.3 Respiratory panel negative, UA unremarkable Chest x-ray showed moderate left pleural effusion with underlying atelectasis, superimposed aspiration/pneumonia may be present to left lung Abdominal/pelvis CT showed no definite evidence of metastatic disease, small fat filled hernia with incarcerated fat, no evidence of bowel obstruction noted Chest CT with no acute abnormalities in the chest Blood cultures pending The patient will be admitted for infectious workup and management of abdominal pain Allergies Allergy/AdvReac Type Severity Reaction Status Date / Time losartan Allergy Severe SWELLING Verified 11/25/24 17:40 OF FACE, LIPS & TONGUE Penicillins Allergy Severe SWELLING Verified 11/25/24 17:40 OF FACE, LIPS & TONGUE fentanyl Allergy Intermediate itching Verified 11/25/24 17:40 oxycodone Allergy Intermediate ITCHING Verified 11/25/24 17:40 ALL OVER tramadol AdvReac Severe Hallucinati Verified 11/25/24 17:40 ons Sulfa (Sulfonamide AdvReac Intermediate URNIARY Verified 11/25/24 17:40 Antibiotics) FREQUENCY sulfamethoxazole AdvReac Intermediate URNIARY Verified 11/25/24 17:40 FREQUENCY topiramate AdvReac Intermediate Blurry Verified 11/25/24 17:40 Vision metronidazole AdvReac Mild STOMACH Verified 11/25/24 17:40 PAIN trimethoprim AdvReac Mild URINARY Verified 11/25/24 17:40 FREQUENCY Home Medications Medication Instructions Recorded Confirmed Type acyclovir 400 mg tablet 400 mg PO TID PRN Cold Sore(s) 08/22/18 12/11/24 History albuterol sulfate 90 mcg/actuation 2 puff inhalation Q4H PRN Wheezing 08/22/18 12/11/24 History aerosol inhaler (Ventolin HFA) levothyroxine 100 mcg tablet 100 mcg PO DAILYBB 08/22/18 12/11/24 History alirocumab 75 mg/mL subcutaneous 75 mg subcut Q14D 09/19/23 12/11/24 History pen injector (Praluent Pen) aspirin 81 mg tablet,delayed 81 mg PO DAILY 09/19/23 12/11/24 History release cholecalciferol (vitamin D3) 25 25 mcg PO DAILY 09/19/23 12/11/24 History mcg (1,000 unit) capsule famotidine 20 mg tablet 20 mg PO BID 09/19/23 12/11/24 History ipratropium 0.5 mg-albuterol 3 mg 3 ml inhalation Q6H PRN Wheezing 09/19/23 12/11/24 History (2.5 mg base)/3 mL nebulization soln lorazepam 0.5 mg tablet (Ativan) 0.5 mg PO Q6H PRN anxiety, 09/08/24 12/11/24 History insomnia, nausea from cancer osimertinib 80 mg tablet (Tagrisso) 80 mg PO PM 09/08/24 12/11/24 History zolpidem 10 mg tablet 10 mg PO HS 09/08/24 12/11/24 History lidocaine 4 % topical patch 1 patch topical DAILY PRN pain #30 09/10/24 12/11/24 Rx ea baclofen 10 mg tablet 20 mg PO BID 09/11/24 12/11/24 History prochlorperazine maleate 10 mg 10 mg PO DAILY PRN Nausea And 09/11/24 12/11/24 History tablet Vomiting lisinopril 20 mg tablet 10 mg PO DAILY 09/25/24 12/11/24 History hydromorphone 4 mg tablet 4 mg PO Q4H PRN pain 1 month #90 11/06/24 12/11/24 Rx (Dilaudid) tabs docusate sodium 100 mg capsule 100 mg PO BID PRN Constipation 11/25/24 12/11/24 History guaifenesin 600 mg tablet, 600 mg PO BID PRN chest congestion 11/25/24 12/11/24 History extended release 12 hr (Mucinex) ondansetron HCl 8 mg tablet 8 mg PO Q6H PRN Nausea And Vomiting 11/25/24 12/11/24 History polyethylene glycol 3350 17 gram 17 g PO DAILY PRN Constipation 11/25/24 12/11/24 History oral powder packet (Miralax) warfarin 2 mg tablet 1 mg (1/2 x 2 mg) PO DAILY #20 tabs 12/01/24 12/11/24 Rx morphine 30 mg tablet,extended 30 mg PO Q12H severe cancer pain 12/04/24 12/11/24 Rx release (MS Contin) long acting control 1 month #60 tabs Past Med/Surg History Problem List (Updated 12/11/24 @ 19:20 by GHANSHYAM Triana) Abdominal pain Left ankle swelling Pleural effusion (Acute) Back muscle spasm Opioid-induced constipation Acute generalized abdominal pain (Acute) Acute left flank pain (Acute) Dyspnea and respiratory abnormalities Drug-induced skin rash Nausea Anxiety associated with cancer diagnosis Anxiety Primary lung squamous cell carcinoma (Acute) Advanced care planning/counseling discussion Palliative care by specialist Weakness generalized Cancer related pain (Acute) Myofascial pain (Acute) Cervicalgia Lung cancer (Acute) Weak Chest pain (Acute) SOB (shortness of breath) (Acute) Epicondylitis, lateral, right Rotator cuff tear, left Abdominal pain (Acute) Diverticulitis Lumbar radiculopathy (Acute) Spondylisthesis (Acute 03/24/14) Urinary problem URINARY LEAKAGE Osteomyelitis (Acute) Discitis (Acute) Lymphadenopathy Tinnitus of both ears Sensorineural hearing loss of both ears Arthritis Gout Adverse reaction to anesthetic agent Unable to come out of it for 3 days Rhinitis GERD (gastroesophageal reflux disease) Encounter for pre-operative examination HLD (hyperlipidemia) (Chronic) GERD (gastroesophageal reflux disease) (Chronic) S/P colon resection (Chronic) chronic diverticulits Hx of fusion of cervical spine (Chronic) (at least 3 levels fused together) Full ROM S/P lumbar fusion (Chronic) Pneumonia hx Bronchitis hx Asthma (Chronic) inhalers prn High blood pressure (Chronic) Irritable colon (Chronic Unknown) Medical History Incomplete rotator cuff tear or rupture of left shoulder, not specified as traumatic Encounter for pre-operative examination Intractable back pain Compression fracture of T12 vertebra Prediabetes RECENT NEW SCRIPT FOR METFORMIN Hx of Clostridium difficile infection APPROX 5 YRS AGO Hx of discitis treated at [facility] (2019) Hx of deep venous thrombosis ~2018 Pulmonary embolism hx of 2006 Pseudogout Hypothyroidism Chronic back pain Osteoarthritis Abdominal hernia no surgery Peripheral neuropathy Migraine hx Chronic obstructive pulmonary disease mild Sleep apnea NO MACHINE Surgical History History of right cataract surgery SEP 2020 History of anesthesia reaction EXTREMELY SLOW TO WAKE UP (COLON RESECTION) History of dilatation and curettage History of total abdominal hysterectomy and bilateral salpingo-oophorectomy History of carpal tunnel release RT History of bunionectomy RT FOOT History of appendectomy History of esophagogastroduodenoscopy (EGD) History of colonoscopy History of tooth extraction History of tonsillectomy History of adenoidectomy S/P ablation of atrial fibrillation ~2014 Family History Mother Family history of esophageal cancer Hearing loss Father Hearing loss Brother Hearing loss Other Cancer Gallbladder disease Heart disease Hypertension Lung disease No family history of adverse response to anesthesia No family history of bleeding disorder Stroke Social History Smoking Status: Former smoker Tobacco Type: Cigarettes Second Hand Exposure: No; Do You Dip or Chew Tobacco: No; Hx Alcohol Use: No Hx Substance Use: No Preferred Language: French Communication Ability: Effective Brick Tosser Required: No Beliefs That Will Affect Care: None Current Living Situation: Alone current occupational status: retired Feels Safe at Home: Yes Assistive Devices: None Review of Systems Review of Systems: All systems reviewed & are unremarkable except as noted in HPI & below Physical Exam Constitutional: WD/WN, vitals as above Eyes: PERRL, conjunctivae normal, anicteric sclerae ENMT: external ear and nose normal, oropharynx normal Neck: trachea midline, no thyromegaly Respiratory: normal respiratory effort, lungs clear to auscultation (Scattered rhonchi, diminished lung sounds in left lobe) Cardiovascular: RRR, no murmur, no edema Gastrointestinal (Abdomen): normal bowel sounds, soft, nontender, no hepatosplenomegaly (No guarding) Musculoskeletal: no cyanosis or clubbing, extremities motor strength 5/5 Skin: no rashes, warm and dry Neurologic: PERRL, EOMI, accommodation nl, no face palsy, no dysarthria Psychiatric: A+Ox3, euthymic affect Lymphatic: no cervical or axillary lymphadenopathy Results & Data Results & Data Vital Signs (Past 12 Hours) Vital Signs Temp Pulse Pulse Resp BP BP Pulse Ox 12/11/24 17:16 88 12/11/24 16:07 89 18 150/82 H 93 12/11/24 14:30 87 15 93 12/11/24 14:30 95/68 L 12/11/24 14:20 90 18 127/78 94 12/11/24 14:00 127/78 12/11/24 14:00 96 H 15 93 12/11/24 13:33 100 H 17 93 12/11/24 13:30 126/75 12/11/24 13:21 98 H 16 93 12/11/24 13:14 127/81 12/11/24 13:13 105 H 12/11/24 13:12 100 H 17 96 12/11/24 12:59 93 12/11/24 12:46 36.9 C 108 H 22 143/84 H 95 O2 Del Method 12/11/24 17:16 12/11/24 16:07 Room Air 12/11/24 14:30 12/11/24 14:30 12/11/24 14:20 Room Air 12/11/24 14:00 12/11/24 14:00 12/11/24 13:33 12/11/24 13:30 12/11/24 13:21 12/11/24 13:14 12/11/24 13:13 12/11/24 13:12 12/11/24 12:59 Room Air 12/11/24 12:46 Room Air Diagnostic Findings Laboratory Results WBC 16.99 K/ul (4.8-10.8) H 12/11/24 12:55 RBC 5.06 M/uL (4.20-5.40) 12/11/24 12:55 Hgb 14.9 g/dl (12.0-16.0) 12/11/24 12:55 Hct 44.5 % (37.0-47.0) 12/11/24 12:55 MCV 87.9 fL (80.0-100.0) 12/11/24 12:55 MCH 29.4 pg (25.0-34.0) 12/11/24 12:55 MCHC 33.5 g/dL (32.0-36.0) 12/11/24 12:55 RDW Std Deviation 44.9 fL (36.4-46.3) 12/11/24 12:55 RDW Coeff of Viky 13.9 % (11.5-14.5) 12/11/24 12:55 Plt Count 452 K/uL (130-400) H 12/11/24 12:55 MPV 9.3 fL (9.4-12.4) L 12/11/24 12:55 Immature Gran % (Auto) 0.4 % 12/11/24 12:55 Neut % (Auto) 75.3 % 12/11/24 12:55 Lymph % (Auto) 10.4 % 12/11/24 12:55 Sharp % (Auto) 7.5 % 12/11/24 12:55 Eos % (Auto) 5.8 % 12/11/24 12:55 Baso % (Auto) 0.6 % 12/11/24 12:55 Neut # (Auto) 12.80 K/uL (1.40-6.50) H 12/11/24 12:55 Lymph # (Auto) 1.76 K/uL (1.20-3.40) 12/11/24 12:55 Sharp # (Auto) 1.28 K/uL (0.11-0.59) H 12/11/24 12:55 Eos # (Auto) 0.98 K/uL (0.00-0.50) H 12/11/24 12:55 Baso # (Auto) 0.10 K/uL (0.00-0.20) 12/11/24 12:55 Immature Gran # (Auto) 0.07 K/uL (0.01-0.20) 12/11/24 12:55 PT 13.8 Seconds (9.0-12.0) H 12/11/24 12:55 INR 1.3 (0.9-1.1) H 12/11/24 12:55 Sodium 137 mmol/L (136-145) 12/11/24 12:55 Potassium 4.1 mmol/L (3.5-5.1) 12/11/24 12:55 Chloride 101 mmol/L (98-107) 12/11/24 12:55 Carbon Dioxide 25 mmol/L (21-32) 12/11/24 12:55 Anion Gap 11 (3-11) 12/11/24 12:55 BUN 10 mg/dl (6-23) 12/11/24 12:55 Creatinine 0.82 mg/dl (0.6-1.2) 12/11/24 12:55 Est Cr Clr Drug Dosing 56.4 ml/min 12/11/24 12:55 eGFR 76.43 12/11/24 12:55 BUN/Creatinine Ratio 12.2 (10-20) 12/11/24 12:55 Glucose 107 mg/dl (70-99(Fasting)) H 12/11/24 12:55 Lactate 1.1 mmol/L (0.4-2.0) 12/11/24 15:04 Calcium 9.1 mg/dl (8.6-10.3) 12/11/24 12:55 Phosphorus 3.5 mg/dl (2.5-4.9) 12/11/24 12:55 Magnesium 2.0 mg/dl (1.7-2.4) 12/11/24 12:55 Total Bilirubin 0.6 mg/dl (0.2-1.0) 12/11/24 12:55 AST 11 U/L (13-39) L 12/11/24 12:55 ALT 8 U/L (7-52) 12/11/24 12:55 Alkaline Phosphatase 64 U/L (34-104) 12/11/24 12:55 Troponin I High Sens 8.7 pg/ml (0-14) 12/11/24 12:55 Total Protein 6.5 gm/dl (6.0-8.3) 12/11/24 12:55 Albumin 3.8 gm/dl (3.4-5.0) 12/11/24 12:55 Globulin 2.7 gm/dl (2.5-4.0) 12/11/24 12:55 Albumin/Globulin Ratio 1.4 (0.9-2) 12/11/24 12:55 Lipase 8 U/L (11-82) L 12/11/24 12:55 Procalcitonin 0.02 ng/ml (0-0.5) 12/11/24 12: TSH 0.437 uIu/ml (0.300-4.500) 12/11/24 12:55 Urine Color Yellow 12/11/24 12:55 Urine Appearance Cloudy (Clear) A 12/11/24 12:55 Urine pH 6.0 (4.5-7.5) 12/11/24 12:55 Ur Specific [place] 1.015 (1.000-1.030) 12/11/24 12:55 Urine Protein Negative (Negative) 12/11/24 12:55 Urine Glucose (UA) Negative (Negative) 12/11/24 12:55 Urine Ketones Trace (Negative) H 12/11/24 12:55 Urine Blood Negative (Negative) 12/11/24 12:55 Urine Nitrite Negative (Negative) 12/11/24 12:55 Urine Bilirubin Negative (Negative) 12/11/24 12:55 Urine Urobilinogen Negative (Negative) 12/11/24 12:55 Ur Leukocyte Esterase 1+ (Negative) H 12/11/24 12:55 Urine WBC (Auto) 0-5 /hpf (0-5) 12/11/24 12:55 Urine RBC (Auto) 0-2 /hpf (0-2) 12/11/24 12:55 U Hyaline Cast (Auto) 0-2 /lpf (0-2) 12/11/24 12:55 U Epithel Cells (Auto) 6-10 /hpf (0-2) H 12/11/24 12:55 Urine Bacteria (Auto) None Seen (None Seen) 12/11/24 12:55 Adenovirus (PCR) Not Detected (NotDetected) 12/11/24 13:15 B. pertussis DNA (PCR) Not Detected (NotDetected) 12/11/24 13:15 B.parapertussis DNA PCR Not Detected (NotDetected) 12/11/24 13:15 C. pneumoniae DNA (PCR) Not Detected (NotDetected) 12/11/24 13:15 Coronavirus OC43 (PCR) Not Detected (NotDetected) 12/11/24 13:15 Coronavirus HKU1 (PCR) Not Detected (NotDetected) 12/11/24 13:15 Coronavirus 229E (PCR) Not Detected (NotDetected) 12/11/24 13:15 SARS-CoV-2 (PCR) Not Detected (NotDetected) 12/11/24 13:15 Coronavirus NL63 (PCR) Not Detected (NotDetected) 12/11/24 13:15 Human Metapneumovir PCR Not Detected (NotDetected) 12/11/24 13:15 Influenza Type A (PCR) Not Detected (NotDetected) 12/11/24 13:15 Influenza Type B (PCR) Not Detected (NotDetected) 12/11/24 13:15 M. pneumoniae (PCR) Not Detected (NotDetected) 12/11/24 13:15 Parainfluenza 1 (PCR) Not Detected (NotDetected) 12/11/24 13:15 Parainfluenza 2 (PCR) Not Detected (NotDetected) 12/11/24 13:15 Parainfluenza 3 (PCR) Not Detected (NotDetected) 12/11/24 13:15 Parainfluenza 4 (PCR) Not Detected (NotDetected) 12/11/24 13:15 RSV (PCR) Not Detected (NotDetected) 12/11/24 13:15 Entero/Rhino (PCR) Not Detected (NotDetected) 12/11/24 13:15 Impressions Chest X-Ray 12/11/24 12:58 XR chest 1V portable CLINICAL HISTORY: Chest pain, nonspecific TECHNIQUE: Single frontal radiograph of the chest was obtained. Comparison: Comparison is made to chest radiograph 11/27/2024 FINDINGS: No lines and tubes are seen. The cardiomediastinal silhouette is obscured. Left lower lung predominant airspace opacities are seen. Moderate left pleural effusi on is seen. ACDF is seen. IMPRESSION: Moderate left pleural effusion is seen with underlying atelectasis. Superimposed aspiration/pneumonia may be present in the left lung. ACT 112: Negative or not required by law. Electronically signed by: Adelso Hernandez M.D. 12/11/2024 1:44 PM Abdomen/Pelvis CT 12/11/24 14:[address] WITH IV CONTRAST HISTORY: Acute generalized abdominal pain in a patient with history of lung cancer abd pain, lung CA TECHNIQUE: Multiaxial CT images of the abdomen and pelvis were performed following the IV administration of 94 cc of Optiray, A dose lowering technique was utilized adhering to the principles of ALARA. COMPARISON STUDY: Chest CT of same day, CT abdomen and pelvis 09/08/2024, chest CT 11/25/2024 FINDINGS: Chest CT dictated separately. Pleural metastatic disease of the left hemithorax redemonstrated which overall is similar in appearance to the study from 11/25/2024. Partially imaged thoracic lymphadenopathy. Cardiomegaly. Nodular intralobular septal thickening of the left lung base. Scattered subcentimeter solid pulmonary nodules in the right lung base again noted including a 5 mm nodule in the right lower lobe on image 16 series 7. No pneumatosis or pneumoperitoneum. Unremarkable spleen, mildly atrophic pancreas, gallbladder and adrenal glands. The liver is within normal limits. Pa tent portal vein. Unremarkable kidneys. No hydronephrosis. Partially decompressed urinary bladder. Hysterectomy with pelvic floor relaxation. Atherosclerosis of the aorta without aneurysm. No pathologically enlarged lymph nodes within the abdomen. No bowel obstruction or bowel wall thickening. Anastomotic sutures in the mid sigmoid. Colonic diverticulosis. Moderate colonic fecal retention. No CT evidence of acute appendicitis. There are several small fat filled anterior abdominal hernias including a left paracentral infraumbilical fat filled hernia on image 254 series 7 with associated inflammatory stranding. Degenerative and postoperative changes of the spine. IMPRESSION: 1. Metastatic disease of the lower chest redemonstrated. Please refer to the same day chest CT for additional findings. 2. No definite evidence of metastatic disease within the abdomen or pelvis. 3. No bowel obstruction or bowel wall thickening. 4. Small fat filled infraumbilical hernia with associated inflammatory stranding is suspicious for incarcerated fat. Correlate with physical exam findings. 5. Colonic diverticulosis without acute diverticulitis. ACT 112: Negative or not required by law. The above report was generated using voice recognition software. It may contain grammatical, syntax or spelling errors. Electronically signed by: Sonny King M.D. 12/11/2024 3:[address] 12/11/24 14:25 CT chest diagnostic w con CLINICAL HISTORY: abd pain, lung ca TECHNIQUE: Multidetector row helical CT of the chest was performed with intra venous contrast. Coronal and sagittal reformations were obtained. Automated dose lowering techniques and/or adjustment according to patient size were utilized for this exam. CT DOSE: 2005.91 mGy.cm Comparison: Comparison is made to CTA chest 11/25/2024 FINDINGS: Lungs and pleura: Pleural thickening and interstitial thickening is seen in the left lung is seen with mild left effusion, there are additional small pulmonary nodules measuring up to 5 mm in the right lower lobe. Heart and pericardium: Heart size is normal. No pericardial effusion. Vessels: Unremarkable. Mediastinum and gómez: 18 mm right lower paratracheal node is seen. Chest wall and lower neck: Numerous left axillary nodes measure up to 16 mm, similar to prior exam. Left lower cervical nodes measure up to 13 mm. Right subclavian node measures 11 mm. Abdomen: For findings below the diaphragm, please refer to CT of the abdomen dated the same. Bones: Degenerative changes are seen in the spine. There is ACDF and T12 cement arthroplasty. IMPRESSION: 1. Prominent pleural and interstitial thickening are again seen on the left with stable pulmonary nodules. Lymphadenopathy in the bilateral cervical/subcl pina region and left axillary region are seen as well as the previously noted mediastinal lymphadenopathy. 2. No acute abnormalities in the chest. ACT 112: Negative or not required by law. Electronically signed by: Adelso Hernandez M.D. 12/11/2024 3:40 PM Code Status & VTE Plan VTE Prophylaxis Plan VTE Prophylaxis will be ordered: Yes
[2024-12-11] MEDS ORDERED: HYDROmorphone INJ 0.5 MG/0.5 ML SYR IV PRN (21:31)
[2024-12-11] MEDS ORDERED: ENOXAPARIN 1 MG/KG SQ SCH (21:31)
[2024-12-11] MEDS ORDERED: HYDROmorphone HCL 4 MG TAB PO PRN (21:31)
[2024-12-11] MEDS ORDERED: ALBUTEROL HFA 8 GM INHALER INH PRN (21:31)
[2024-12-11] MEDS ORDERED: bisacodyL 10 MG SUPP PR PRN (21:31)
[2024-12-11] MEDS ORDERED: VANCOMYCIN CONSULT ACTIVE PRN (21:31)
[2024-12-11] MEDS: MoRPHine SULFATE CR 15 MG TABCR PO SCH (22:22)
[2024-12-11] MEDS: FAMOTIDINE 20 MG TAB PO SCH (22:22)
[2024-12-11] MEDS: ZOLPIDEM TARTRATE 5 MG TAB PO SCH (22:22)
[2024-12-11] MEDS: ENOXAPARIN 80 MG/0.8 ML SYR SQ SCH (22:23)
[2024-12-11] MEDS: LORazepam 0.5 MG TAB PO PRN (22:31)
[2024-12-11] MEDS: VANCOMYCIN HCL 1,500 MG in SODIUM CHLORIDE 0.9% 500 ML IV ONE (22:34)
[2024-12-11] MEDS: POLYETHYLENE (MIRALAX) 17 GM PACK PO PRN (22:50)
--- OUTSIDE RECORDS SUMMARY | 2024-12-12 00:33 | External Medical Summary | Summary of Care ---
Author Name Unknown Organization [facility] Address [address] [facility] [place] [address] Phone [phone] Care Team Providers Care Director Of Nursing Name Role Phone Kaylan Hernandez PA-C Primary Care Provider [phone] Reason for Visit * Reason Onset Date Comments Advice 12/11/2024 Encounter Details Date Type Department Care Team (Late st Contact Info) Description 12/11/2024 Telephone Hematology/Oncology [facility] [place] [address] [place] [address] Cortez Simmons MD [address] [place] [address] Advice Allergies Active Allergy Reactions Criticality Noted Date Comments Losartan Potassium Edema face/lips/tongue High 06/30 Fentanyl Itching 08/30/2016 Oxycodone 06/07/2023 Itching all over Penicillins Edema face/lips/tongue High 11/15/2001 Sulfa Antibiotics Other (Please comment) 2000 Urinary frequency Topiramate 04/09/2023 Other reaction(s): Blurry Vision Tramadol Other (Please comment) 01/01/2018 hallucinations documented as of this encounter (statuses as of 12/11/2024) Medications TYLENOL EXTRA STRENGTH 500 MG PO TABS Take 2 Tablets by mouth in the morning and 2 Tablets before bedtime. 0 7 Active VITAMIN D 1000 UNIT PO CAPS one capsule by mouth once a day Active Aspirin EC 81 MG Oral Tablet Delayed ReleaseIndicatio ns:Paroxysmal atrial fibrillation (HCC),Coronary artery disease involving yurok coronary artery of yurok heart without angina pectoris,Dyslipi demia, goal LDL below 70,HTN, goal below 140/90 Take 1 Tab by mouth daily. 1 Active Probiotic (Lactobacillus) Oral Capsule Take 1 Capsule by mouth daily. 30 Capsule 2 Active Saline Nasal [place] 0.65 % Nasal Solution ([place]) Administer 1 [place] into nostril as needed for Congestion. Active Albuterol Sulfate (2.5 MG/3ML) 0.083% Inhalation Nebulization Solution (Proventil)Indic ations:Bronchiti s, complicated,Hook Up ellen bronchitis, unspecified chronic bronchitis type (HCC) use 1 nebulizer vial as needed for cough, shortness of breath, and wheeze 75 mL 3 Active Ipratropium-Albu terol 0.5-2.5 (3) MG/3ML Inhalation Solution (Duoneb)Indicati ons:Bronchitis, complicated,Hook Up ellen bronchitis, unspecified chronic bronchitis type (HCC) [...] mouth at bedtime as needed for Sleep. 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 Increased risk for Hereditary Cardiomyopathy. Please click the link below for a brief summary of current clinical management recommendations for Hypertrophic Cardiomyopathy. MYH7 Coronary artery disease invo lving yurok coronary artery of yurok heart without angina pectoris 09/26/2021 MISHRA (dyspnea [...] as of this encounter (statuses as of 12/11/2024) Resolved Problems Problem Noted Date Diagnosed Date [...] as of this encounter (statuses as of 12/11/2024) Immunizations Name Administration Dates Next Due COVID-19 mRNA, LNP-s, No Pre serve, 2-Dose Series ([employer]) 10/29/2021,02/07/2021,01/03/2021 PPD 04/27/2010, 0,04/08/2010,04/08,10/25/2006,10/25/2006 Pneumococcal Polysaccharide PPV23 [...] Telephone Encounter - Jay Freed RN - 12/11/2024 11:08 AM EST Yuliana from [facility] calling to advise patient is having abdominal pain, WBC count is elevated at 15,she is running temp of 99.2, SP02 95%, and HR 122. Advised that patient should be seen in the ER regarding HR, low grade fever, and WBC elevation. documented in this encounter Plan of Treatment Upcoming Encounters Date Type Department Care Team (Late st Contact Info) Description 12/11/2024 5:40 PM EST Anticoagulation Pharmacy, [facility] [address] [facility] [phone] [place] [address] [place] [address] Paroxysmal atrial fibrillation (HCC)*; Anticoagulation management encounter; Acute deep vein thrombosis (DVT) of tibial vein of left lower extremity (HCC) 12/15/2024 5:40 PM EST Anticoagulation Pharmacy, [facility] [address] [facility] [phone] [place] [address] [place] [address] 12/17/2024 9:45 AM EST Pharmacy Pharmacy Hematology Oncology [facility] [address] [place] [address] [facility] Hem/Onc [address] [place] [address] 12/24/2024 11:30 AM EST Office Visit Hematology/Oncology Christine Barajas [place] [address] [place] [phone] Kourtney Hernandez CRNP [address] [facility] [place] [address] 02/02/2025 9:45 AM EDT Imaging Radiology [address] [place] [phone] 02/10/2025 9:30 AM EDT Office Visit Hematology/Oncology [facility] [address] [facility] [place] [phone] Cortez Simmons MD [address] [facility] [place] [address] 05/25/2025 1:30 PM EDT Office Visit Cardiology, [facility] [address] [place] [address] Pablo Romano MD [address] [place] [address] Health Maintenance Due Date Last Done Comments [...] IN PAST YEAR FOR COPD 06/25/2025 06/25/2024 TSH 10/14/2025 10/14/2024, 05/2024, 03/06/2023, Additional history exists Depression Screening 12/05/2025 12/05/2024 GFR 12/10/2025 12/10/2024, 09/26, 08/14/2024, Additional history exists Albumin/Creatinine Ratio 02/28/2026 02/28/2023 [...] with: Not Discussed Care Teams Director Of Nursing Relationship Specialty Start Date End Date Kaylan Hernandez PA-C [address] [place] [address] PCP - General Physician Long Chain Quiller Tender 09/16/24 documented as of this encounter
--- OUTSIDE RECORDS SUMMARY | 2024-12-12 00:33 | External Medical Summary | Summary of Care ---
Author Name Unknown Organization [facility] Address [address] [facility] [place] [address] Phone [phone] Care Team Providers Care Air Battle Manager Name Role Phone Mary Kaylan Whitney PA-C Primary Care Provider [phone] Reason for Visit * Reason Comments Dosage Adjustment Via Phone (anticoag Cl inic) Encounter Details Date Type Department Care Team (Latest Contact Info) Description 12/11/2024 5:40 PM EST Anticoagulation Pharmacy, [facility] [address] [facility] [place] [phone] [facility] [address] [place] [address] Paroxysmal atrial fibrillation (HCC)*; Anticoagulation management encounter; [...] daily. 30 Capsule 2 Active Saline Nasal [place] 0.65 % Nasal Solution ([place]) Administer 1 [place] into nostril as needed for Congestion. Active Albuterol Sulfate (2.5 MG/3ML) 0.083% Inhalation Nebulization Solution (Proventil)Indic ations:Bronchiti s, complicated,Quality Specialist ellen bronchitis, unspecified chronic bronchitis type (HCC) use 1 nebulizer vial as needed for cough, shortness of breath, and wheeze 75 mL 3 Active Ipratropium-Albu terol 0.5-2.5 (3) MG/3ML Inhalation Solution (Duoneb)Indicati ons:Bronchitis, complicated,Quality Specialist ellen bronchitis, unspecified chronic bronchitis type (HCC) [...] mouth at bedtime as needed for Sleep. [place] brand 30 Tablet 3 4 Active Doxycycline [...] gene variant (c.2389 G>A, p.(A797T)) detected via [employer]. Increased risk for Hereditary Cardiomyopathy. Please click [...] mRNA, LNP-s, No Pre serve, 2-Dose Series ([place]) 10/29/2021,02/07/2021,01/03/2021 PPD 04/27/2010, 0,04/08/2010,04/08,10/25/2006,10/25/2006 Pneumococcal Polysaccharide PPV23 [...] Date Author No 01/09/2018 6:54 AM EST Cimbalos, Ruth R, RN documented in this encounter Progress Notes * Layla Beavers RP - 12/11/2024 1:33 PM EST Images from the original note were not included. Medication Therapy Disease Management - Anticoagulation Patient: Florecita Quintana | : 1955 Subjective Contacts Contact Date/Time Type Contact Phone/Fax 12/11/2024 01:32 PM EST Phone (Outgoing) Florecita Quintana" (Self) [phone] (M) Left Message 12/11/2024 02:29 PM EST Phone (Outgoing) Florecita Quintana "Myra" (Self) [phone] (M) Left Message 12/11/2024 02:33 PM EST Email (Outgoing) Florecita Quintana" (Self) MyG Message Objective Current Warfarin Dose As of 12/11/2024 Warfarin maintenance plan: No maintenance plan INR Result As of 12/11/2024 INR goal: 2.0-3.0 INR used for dosin.3 (12/11/2024) Assessment & Plan Warfarin Plan As of 12/11/2024 Full warfarin instructions: 12/11: 2 mg; 12/12: 2 mg; 12/13: 1 mg; 12/14: 2 mg Next INR check: 12/15/2024 Repeat PT/INR in 4 day(s) Weekly dose: establishing Additional Dosing Information: Description Faxed note to [facility] at [phone] to obtain INR on 12/15/24 and , 12/18/24 I spent a total of 10-19 minutes (exact time 10 mins) on the date of service in preparation, delivery, and documentation of the care provided to Florecita Quintana excluding any time spent in the performance of separately billed services or time spent by another provider/QHP. Layla Beavers [facility] Clinical Pharmacist 12/11/2024, 1:33 PM * Mariola Cohn CPhT - 12/11/2024 10:47 AM EST Caller's name: [facility] Preferred call back number(OFFICE NUMBER FOR ): [phone] Reason for call: Yuliana calling in with patient's INR result of 1.3. Patient is not being discharged Thank you, Madie Cohn Cadastral Engineer [facility] 12/11/2024, 10:47 AM documented in this encounter Plan of Treatment Upcoming Encounters Date Type Department Care Team (Late st Contact Info) Description 12/15/2024 5:40 PM EST [facility]ticoagulation [facility], [facility] [address] [facility] [phone] [place] [address] [place] [address] 12/17/2024 9:45 AM EST Pharmacy Pharmacy Hematology Oncology [facility] [address] [place] [address] [facility] Hem/Onc [address] [place] [address] 12/24/2024 11:30 AM EST Office Visit Hematology/Oncology [place] [address] [place] [phone] Kourtney Hernandez CRNP [address] [place] [address] [place] [address] 02/02/2025 9:45 AM EDT Imaging Radiology [facility] [place] [address] [place] [address] 02/10/2025 9:30 AM EDT Office Visit Hematology/Oncology Christine [place] [place] [address] [place] [phone] Cortez Simmons MD [address] [place] [address] 05/25/2025 1:30 PM EDT Office Visit Cardiology, [facility] [place] [address] [place] [address] Pablo Romano MD [address] [place] [address] Health Maintenance Due Date Last Done Comments [...] FOR COPD 06/25/2025 06/25/2024 TSH 10/14/2025 10/14/2024, 0205/2024, 03/06/2023, Additional history [...] Date/Time Associated Diagnosis Comments OUTSIDE LAB-PT/INR Routine 12/11/2024 documented in this encounter Results * OUTSIDE LAB-PT/INR (12/11/2024) INR-OUTSIDE LAB 1.3 12/11/2024 us History Per Patient LABORATORY Final Result documented in this encounter Visit Diagnoses Diagnosis Paroxysmal atrial fibrillation (HCC)- Primary Atrial fibrillation Anticoagulation management encounter Encounter for therapeutic drug monitoring Acute deep vein thrombosis (DVT) of tibial [...] Directives occurred with: Not Discussed Care Teams Air Battle Manager Relationship Specialty Start Date End Date Kaylan Hernandez PA-C [facility] Christine Jarquin [facility] [place] [address] PCP - General Physician Rack Cleaner 09/16/24 documented as of this encounter
--- OUTSIDE RECORDS SUMMARY | 2024-12-12 00:33 | External Medical Summary | Summary of Care ---
Author Name Unknown Organization [facility] Address [address] [facility] [place] [address] Phone [phone] Care Team Providers Care Sales And Marketing Intern Name Role Phone Ginnymeggan Kaylan Whitney PA-C Primary Care Provider [phone] Reason for Visit * Reason Onset Date Comments Advice 12/11/2024 Dr. Simmons Encounter Details Date Type Department Care Team (Late st Contact Info) Description 12/11/2024 Telephone Hematology/Oncology [facility] [address] [place] [address] Cortez Simmons MD [address] [place] [address] Advice (Dr. Simmons ) Allergies Active Allergy Reactions Criticality Noted Date [...] ns:Paroxysmal atrial fibrillation (HCC),Coronary artery disease involving ely shoshone coronary artery of ely shoshone heart without angina pectoris,Dyslipi demia, goal LDL below 70,HTN, goal below 140/90 Take 1 Tab by mouth daily. 1 Active Probiotic (Lactobacillus) Oral Capsule Take 1 Capsule by mouth daily. 30 Capsule 2 Active Saline Nasal [place] 0.65 % Nasal Solution ([place]) Administer 1 [place] into nostril as needed for Congestion. Active Albuterol Sulfate (2.5 MG/3ML) 0.083% Inhalation Nebulization Solution (Proventil)Indic ations:Bronchiti s, complicated,Paraeducator ellen bronchitis, unspecified chronic bronchitis type (HCC) use 1 nebulizer vial as needed for cough, shortness of breath, and wheeze 75 mL 3 Active Ipratropium-Albu terol 0.5-2.5 (3) MG/3ML Inhalation Solution (Duoneb)Indicati ons:Bronchitis, complicated,Paraeducator ellen bronchitis, unspecified chronic bronchitis type (HCC) [...] xysmal atrial fibrillation (HCC),HTN, goal below 140/80,Dyslipide daylni, goal LDL below 70,JOLANTA (obstructive sleep apnea) [...] mouth at bedtime as needed for Sleep. 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 Increased risk for Hereditary Cardiomyopathy. Please click the link below for a brief summary of current clinical management recommendations for Hypertrophic Cardiomyopathy. MYH7 Coronary artery disease invo lving ely shoshone coronary artery of ely shoshone heart without angina pectoris 09/26/2021 MISHRA (dyspnea [...] mRNA, LNP-s, No Pre serve, 2-Dose Series (TrashOut) 10/29/2021,02/07/2021,01/03/2021 PPD 04/27/2010, 0,04/08/2010,04/08,10/25/2006,10/25/2006 Pneumococcal Polysaccharide PPV23 [...] encounter Miscellaneous Notes * Telephone Encounter - Ute Grant OSA - 12/11/2024 10:54 AM EST What is the reason for call? Yuliana from [facility] called regarding Florecita. She is with the patient now and Florecita is experiencing abdominal pain, she did have diarrhea and is constipated now. She took her vitals, Temp: 99.2, Pulse: 122, BP 134/78, O2 95% on room air and her white count is 15.24. Call was warm transferred to Jay documented in this encounter Plan of Treatment Upcoming Encounters Date Type Department Care Team (Late st Contact Info) Description 12/11/2024 5:40 PM EST [facility], [facility] [address] [facility] [place] [phone] [place] [address] [place] [address] Paroxysmal atrial fibrillation (HCC)*; Anticoagulation management encounter; Acute deep vein thrombosis (DVT) of tibial vein of left lower extremity (HCC) 12/15/2024 5:40 PM EST [facility] [address] [facility] [place] [phone] [place] [address] [place] [address] 12/17/2024 9:45 AM EST Pharmacy Pharmacy Hematology Oncology [facility] [address] [place] [address] [facility] Hem/Onc [address] [place] [address] 12/24/2024 11:30 AM EST Office Visit Hematology/Oncology Christine [facility]ajas [place] [address] [facility] [phone] Kourtney Hernandez CRNP [address] [place] [address] [place] [phone] 02/02/2025 9:45 AM EDT Imaging Radiology [facility] [facility] [address] [place] [phone] 02/10/2025 9:30 AM EDT Office Visit Hematology/Oncology [facility] [address] [facility] [place] [phone] Cortez Simmons MD [address] [facility] [place] [address] 05/25/2025 1:30 PM EDT Office Visit Cardiology, [facility] [address] [place] [address] Pablo Romano MD [address] [place] [address] Health Maintenance Due Date Last Done Comments [...] Directives occurred with: Not Discussed Care Teams Sales And Marketing Intern Relationship Specialty Start Date End Date Kaylan Hernandez PA-C [address] [place] [address] PCP - General Physician Internet Retailer 09/16/24 documented as of this encounter
[2024-12-12] MEDS: CEFEPIME 1000MG 1,000 MG/10 ML SYR IV SCH (06:17)
[2024-12-12] MEDS: VANCOMYCIN 750 MG in SODIUM CHLORIDE 0.9% 250 ML IV SCH (06:20)
[2024-12-12] MEDS: LEVOTHYROXINE SODIUM 100 MCG TABLET PO SCH (06:44)
[2024-12-12 06:52] LABS: INR 1.4 (0.9-1.1); Prothrombin Time 14.6 Seconds (9.0-12.0)
[2024-12-12 08:57] LABS: Creatinine Clr Calc Pharmacy 69.4 ml/min
[2024-12-12] MEDS: CHOLECALCIFEROL 25 MCG (1000 UNITS) TAB PO SCH (09:09)
[2024-12-12] MEDS: lisinopril 10 MG TAB PO SCH (09:10)
[2024-12-12] MEDS: ASPIRIN 81 MG ECTAB PO SCH (09:10)
--- NOTE | 2024-12-12 10:01 | Pharmacy Report ---
Pharmacy PK ABX Note - Date of Service December 12, 2024 - Assessment and Plan Assessment 69 year old F receiving vancomycin and cefepime for treatment of suspected pneumonia. PMH includes metastatic lung cancer, recent hospitalization malignant pleural effusion with chest tube, receiving palliative chemo. Pertinent microbiologic data includes: negative MRSA Nasal Swab. Blood cultures pending. Concerns for left sided empyema. Patient came in with abdominal pain of unclear etiology. Day # 1 of antimicrobial therapy. Plan Vancomycin * Loading dose: 1500 mg IV x 1 * Maintenance dose: 750 mg IV every 12 hours * Regimen is predicted to achieve target AUC/CLARKE of 400-600 mg/L.hr Cefepime 1g q12h Pharmacy will continue to follow and will adjust dose/frequency as necessary. Thank you. Pharmacy has transitioned to AUC monitoring for vancomycin. AUC/CLARKE is the preferred PK/PD target and is associated with decreased risk of nephrotoxicity compared to traditional trough targets.
[2024-12-12] MEDS ORDERED: MINERAL OIL ENEMA 133 ML BTL PR PRN (15:01)
--- NOTE | 2024-12-12 15:01 | Palliative Care Consultation ---
Date of Consultation December 12, 2024 Assessment & Plan (1) Dyspnea and respiratory abnormalities: (2) Cancer related pain: (3) Acute generalized abdominal pain: (4) Opioid-induced constipation: Bowel regimen modified and Senna S 2 tabs BId ordered along with daily PRN miralax, prn Mineral oil supp ordered (5) Anxiety associated with cancer diagnosis: (6) Weakness generalized: (7) Advanced care planning/counseling discussion: 30 min face to face at bedside with pt. she is contemplating stopping chemo but at recent onc visit she was told her PS remains strong overall and staying on chemo (Tigresso) may be worthwhile for now she is very tearful as she shares the worry about not feeling she is ready to but also being at peace with knowing one day she will , and because of the caner, she knows she will sooner than later and will not grow into very old age. She has an end of life night clerk/conscious dying dramatic coach who has been extremely helpful with assisting her navigate the domains of end of life and she tells me the EOL night clerk has helped her gain clarity about fractured relationships, find some closure and has added a tremendous sense of peace to her life. She feels much less alone in this process. Plan med changes for OIC and pain mgt Updated Dr Ramirez Will follow up in clinic Thank you for allowing us to participate in the ongoing care of this patient. Please page with any additional concerns. Wayne Bertrand DNP Director, Palliative Medicine History of Present Illness Reason for Consultation: ongoing care Attending Physician: Syl Ramirez MD History of Present Illness Myra is known to me from OP clinic and prior admission small cell lung cancer new left PNA, pleural effusion, ?post obstructive PNA now with abd pain likely referred from lung remains on Tigresso for her lung ca now on hold 2/2 infection last admission new LLE DVT - remains on AC Allergies Allergy/AdvReac Type Severity Reaction Status Date / Time losartan Allergy Severe SWELLING Verified 11/25/24 17:40 OF FACE, LIPS & TONGUE Penicillins Allergy Severe SWELLING Verified 11/25/24 17:40 OF FACE, LIPS & TONGUE fentanyl Allergy Intermediate itching Verified 11/25/24 17:40 oxycodone Allergy Intermediate ITCHING Verified 11/25/24 17:40 ALL OVER tramadol AdvReac Severe Hallucinati Verified 11/25/24 17:40 ons Sulfa (Sulfonamide AdvReac Intermediate URNIARY Verified 11/25/24 17:40 Antibiotics) FREQUENCY sulfamethoxazole AdvReac Intermediate URNIARY Verified 11/25/24 17:40 FREQUENCY topiramate AdvReac Intermediate Blurry Verified 11/25/24 17:40 Vision metronidazole AdvReac Mild STOMACH Verified 11/25/24 17:40 PAIN trimethoprim AdvReac Mild URINARY Verified 11/25/24 17:40 FREQUENCY Home Medications Medication Instructions Recorded Confirmed Type acyclovir 400 mg tablet 400 mg PO TID PRN Cold Sore(s) 08/22/18 12/11/24 History albuterol sulfate 90 mcg/actuation 2 puff inhalation Q4H PRN Wheezing 08/22/18 12/11/24 History aerosol inhaler (Ventolin HFA) levothyroxine 100 mcg tablet 100 mcg PO DAILYBB 08/22/18 12/11/24 History alirocumab 75 mg/mL subcutaneous 75 mg subcut Q14D 09/19/23 12/11/24 History pen injector (Praluent Pen) aspirin 81 mg tablet,delayed 81 mg PO DAILY 09/19/23 12/11/24 History release cholecalciferol (vitamin D3) 25 25 mcg PO DAILY 09/19/23 12/11/24 History mcg (1,000 unit) capsule famotidine 20 mg tablet 20 mg PO BID 09/19/23 12/11/24 History ipratropium 0.5 mg-albuterol 3 mg 3 ml inhalation Q6H PRN Wheezing 09/19/23 12/11/24 History (2.5 mg base)/3 mL nebulization soln lorazepam 0.5 mg tablet (Ativan) 0.5 mg PO Q6H PRN anxiety, 09/08/24 12/11/24 History insomnia, nausea from cancer osimertinib 80 mg tablet (Tagrisso) 80 mg PO PM 09/08/24 12/11/24 History zolpidem 10 mg tablet 10 mg PO HS 09/08/24 12/11/24 History lidocaine 4 % topical patch 1 patch topical DAILY PRN pain #30 09/10/24 12/11/24 Rx ea baclofen 10 mg tablet 20 mg PO BID 09/11/24 12/11/24 History prochlorperazine maleate 10 mg 10 mg PO DAILY PRN Nausea And 09/11/24 12/11/24 History tablet Vomiting lisinopril 20 mg tablet 10 mg PO DAILY 09/25/24 12/11/24 History hydromorphone 4 mg tablet 4 mg PO Q4H PRN pain 1 month #90 11/06/24 12/11/24 Rx (Dilaudid) tabs docusate sodium 100 mg capsule 100 mg PO BID PRN Constipation 11/25/24 12/11/24 History guaifenesin 600 mg tablet, 600 mg PO BID PRN chest congestion 11/25/24 12/11/24 History extended release 12 hr (Mucinex) ondansetron HCl 8 mg tablet 8 mg PO Q6H PRN Nausea And Vomiting 11/25/24 12/11/24 History polyethylene glycol 3350 17 gram 17 g PO DAILY PRN Constipation 11/25/24 12/11/24 History oral powder packet (Miralax) warfarin 2 mg tablet 1 mg (1/2 x 2 mg) PO DAILY #20 tabs 12/01/24 12/11/24 Rx morphine 30 mg tablet,extended 30 mg PO Q12H severe cancer pain 12/04/24 12/11/24 Rx release (MS Contin) long acting control 1 month #60 tabs Patient History Medical History Incomplete rotator cuff tear or rupture of left shoulder, not specified as traumatic Encounter for pre-operative examination Intractable back pain Compression fracture of T12 vertebra Prediabetes RECENT NEW SCRIPT FOR METFORMIN Hx of Clostridium difficile infection APPROX 5 YRS AGO Hx of discitis treated at [facility] (2018) Hx of deep venous thrombosis ~2018 Pulmonary embolism hx of 2006 Pseudogout Hypothyroidism Chronic back pain Osteoarthritis Abdominal hernia no surgery Peripheral neuropathy Migraine hx Chronic obstructive pulmonary disease mild Sleep apnea NO MACHINE Surgical History History of right cataract surgery SEP 2020 History of anesthesia reaction EXTREMELY SLOW TO WAKE UP (COLON RESECTION) History of dilatation and curettage History of total abdominal hysterectomy and bilateral salpingo-oophorectomy History of carpal tunnel release RT History of bunionectomy RT FOOT History of appendectomy History of esophagogastroduodenoscopy (EGD) History of colonoscopy History of tooth extraction History of tonsillectomy History of adenoidectomy S/P ablation of atrial fibrillation ~2014 Family History Mother Family history of esophageal cancer Hearing loss Father Hearing loss Brother Hearing loss Other Cancer Gallbladder disease Heart disease Hypertension Lung disease No family history of adverse response to anesthesia No family history of bleeding disorder Stroke Social History Smoking Status: Former smoker Tobacco Type: Cigarettes Second Hand Exposure: No; Do You Dip or Chew Tobacco: No; Tobacco Cessation Education Requested by Patient: No Hx Alcohol Use: Yes Alcohol type: hard liquor Hx Substance Use: No Preferred Language: Ethiopian Communication Ability: Effective Track Walker Required: No Beliefs That Will Affect Care: None Current Living Situation: Alone current occupational status: retired Other Information That Helps Us Care for You: No Feels Safe at Home: Yes Safety Concerns: Feels Safe At This Time Assistive Devices: None Review of Systems Review of Systems: All systems reviewed & are unremarkable except as noted in Subjective Physical Exam Physical Exam: + Distress: Anxious, intermittently tear ful, complexion pale NCAT PERRLA, EOMIs No stridor dentition intact Resp effort mildly increased, + conversational dyspnea, + decreased air entry left more than right, no particular wheeze, decreased bilateral crackles left greater than right. S1-S2 noted, no gross evidence of JVP. No overt murmur. Abdomen softly distended, mildly tender, bowel sounds diminished, no guarding, no rebound. Mild weakness symmetrically but strength overall intact Left lower extremity edema, no calf tenderness, +dysesthetic pain ankle skin pale, warm AAOx3, following commands Results & Data Vital Signs (Past 12 Hours) Vital Signs Temp Pulse Resp BP Pulse Ox O2 Del Method 12/12/24 07:29 36.8 C 88 16 103/66 92 Room Air Laboratory Results 12/13/24 12/12/24 12/12/24 Range/Units 07:22 Unknown 21:30 WBC 10.84 H (4.8-10.8) K/ul RBC 4.03 L (4.20-5.40) M/uL Hgb 11.9 L D (12.0-16.0) g/dl Hct 36.0 L (37.0-47.0) % MCV 89.3 (80.0-100.0) fL MCH 29.5 (25.0-34.0) pg MCHC 33.1 (32.0-36.0) g/dL RDW Std Deviation 46.6 H (36.4-46.3) fL RDW Coeff of Viky 14.0 (11.5-14.5) % Plt Count 352 (130-400) K/uL MPV 9.3 L (9.4-12.4) fL Immature Gran % (Auto) 0.4 % Neut % (Auto) 71.4 % Lymph % (Auto) 10.6 % Scott % (Auto) 8.8 % Eos % (Auto) 8.2 % Baso % (Auto) 0.6 % Neut # (Auto) 7.74 H (1.40-6.50) K/uL Lymph # (Auto) 1.15 L (1.20-3.40) K/uL Scott # (Auto) 0.95 H (0.11-0.59) K/uL Eos # (Auto) 0.89 H (0.00-0.50) K/uL Baso # (Auto) 0.07 (0.00-0.20) K/uL Immature Gran # (Auto) 0.04 (0.01-0.20) K/uL PT 15.3 H (9.0-12.0) Seconds INR 1.5 H (0.9-1.1) Sodium 136 (136-145) mmol/L Potassium 4.1 (3.5-5.1) mmol/L Chloride 106 (98-107) mmol/L Carbon Dioxide 24 (21-32) mmol/L Anion Gap 6 (3-11) BUN 8 (6-23) mg/dl Creatinine 0.57 L (0.6-1.2) mg/dl Est Cr Clr Drug Dosing 81.6 ml/min eGFR 97.10 BUN/Creatinine Ratio 14.0 (10-20) Glucose 88 (70-99(Fasting)) mg/dl Lactate (0.4-2.0) mmol/L Calcium 8.3 L (8.6-10.3) mg/dl Phosphorus (2.5-4.9) mg/dl Magnesium (1.7-2.4) mg/dl Total Bilirubin (0.2-1.0) mg/dl AST (13-39) U/L ALT (7-52) U/L Alkaline Phosphatase (34-104) U/L Troponin I High Sens (0-14) pg/ml Total Protein (6.0-8.3) gm/dl Albumin (3.4-5.0) gm/dl Globulin (2.5-4.0) gm/dl Albumin/Globulin Ratio (0.9-2) Lipase (11-82) U/L Procalcitonin (0-0.5) ng/ml TSH (0.300-4.500) uIu/ml Urine Color Urine Appearance (Clear) Urine pH (4.5-7.5) Ur Specific Sanders (1.000-1.030) Urine Protein (Negative) Urine Glucose (UA) (Negative) Urine Ketones (Negative) Urine Blood (Negative) Urine Nitrite (Negative) Urine Bilirubin (Negative) Urine Urobilinogen (Negative) Ur Leukocyte Esterase (Negative) Urine WBC (Auto) (0-5) /hpf Urine RBC (Auto) (0-2) /hpf U Hyaline Cast (Auto) (0-2) /lpf U Epithel Cells (Auto) (0-2) /hpf Urine Bacteria (Auto) (None Seen) Nasal Screen MRSA (PCR) Negative (Negative) Stl C. cayetanensis PCR Not Detected (NotDetected) Stool Rotavirus A PCR Not Detected (NotDetected) Stl Adenov F 40/41 PCR Not Detected (NotDetected) Stool Astrovirus (PCR) Not Detected (NotDetected) Stool Campylobacter PCR Not Detected (NotDetected) Stool Cryptosporidium PCR Not Detected (NotDetected) Stl E.coli Shiga Tox PCR Not Detected (NotDetected) Stl Enterotoxigenic E PCR Not Detected (NotDetected) Stool EPEC (PCR) Not Detected (NotDetected) Stool EAEC (PCR) Not Detected (NotDetected) Stl E. histolytica PCR Not Detected (NotDetected) Stool Giardia Lamblia PCR Not Detected (NotDetected) Stool Salmonella PCR Not Detected (NotDetected) Stool Sapovirus (PCR) Not Detected (NotDetected) Stl P. shigelloides PCR Not Detected (NotDetected) Stl Shigella/EIEC PCR Not Detected (NotDetected) St Y.enterocolitica PCR Not Detected (NotDetected) Stool Vibrio (PCR) Not Detected (NotDetected) Stl Vibrio cholerae PCR Not Detected (NotDetected) Stl Norovirus GI/GII PCR Not Detected (NotDetected) Adenovirus (PCR) (NotDetected) B. pertussis DNA (PCR) (NotDetected) B.parapertussis DNA PCR (NotDetected) C. pneumoniae DNA (PCR) (NotDetected) Coronavirus OC43 (PCR) (NotDetected) Coronavirus HKU1 (PCR) (NotDetected) Coronavirus 229E (PCR) (NotDetected) SARS-CoV-2 (PCR) (NotDetected) Coronavirus NL63 (PCR) (NotDetected) Human Metapneumovir PCR (NotDetected) Influenza Type A (PCR) (NotDetected) Influenza Type B (PCR) (NotDetected) M. pneumoniae (PCR) (NotDetected) Parainfluenza 1 (PCR) (NotDetected) Parainfluenza 2 (PCR) (NotDetected) Parainfluenza 3 (PCR) (NotDetected) Parainfluenza 4 (PCR) (NotDetected) RSV (PCR) (NotDetected) Entero/Rhino (PCR) (NotDetected) 12/12/24 12/12/24 12/11/24 Range/Units 05:51 05:48 22:46 WBC (4.8-10.8) K/ul RBC (4.20-5.40) M/uL Hgb (12.0-16.0) g/dl Hct (37.0-47.0) % MCV (80.0-100.0) fL MCH (25.0-34.0) pg MCHC (32.0-36.0) g/dL RDW Std Deviation (36.4-46.3) fL RDW Coeff of Viky (11.5-14.5) % Plt Count (130-400) K/uL MPV (9.4-12.4) fL Immature Gran % (Auto) % Neut % (Auto) % Lymph % (Auto) % Scott % (Auto) % Eos % (Auto) % Baso % (Auto) % Neut # (Auto) (1.40-6.50) K/uL Lymph # (Auto) (1.20-3.40) K/uL Scott # (Auto) (0.11-0.59) K/uL Eos # (Auto) (0.00-0.50) K/uL Baso # (Auto) (0.00-0.20) K/uL Immature Gran # (Auto) (0.01-0.20) K/uL PT 14.6 H (9.0-12.0) Seconds INR 1.4 H (0.9-1.1) Sodium (136-145) mmol/L Potassium (3.5-5.1) mmol/L Chloride (98-107) mmol/L Carbon Dioxide (21-32) mmol/L Anion Gap (3-11) BUN (6-23) mg/dl Creatinine 0.67 (0.6-1.2) mg/dl Est Cr Clr Drug Dosing 69.4 ml/min eGFR 93.39 BUN/Creatinine Ratio (10-20) Glucose (70-99(Fasting)) mg/dl Lactate (0.4-2.0) mmol/L Calcium (8.6-10.3) mg/dl Phosphorus (2.5-4.9) mg/dl Magnesium (1.7-2.4) mg/dl Total Bilirubin (0.2-1.0) mg/dl AST (13-39) U/L ALT (7-52) U/L Alkaline Phosphatase (34-104) U/L Troponin I High Sens (0-14) pg/ml Total Protein (6.0-8.3) gm/dl Albumin (3.4-5.0) gm/dl Globulin (2.5-4.0) gm/dl Albumin/Globulin Ratio (0.9-2) Lipase (11-82) U/L Procalcitonin (0-0.5) ng/ml TSH (0.300-4.500) uIu/ml Urine Color Urine Appearance (Clear) Urine pH (4.5-7.5) Ur Specific Sanders (1.000-1.030) Urine Protein (Negative) Urine Glucose (UA) (Negative) Urine Ketones (Negative) Urine Blood (Negative) Urine Nitrite (Negative) Urine Bilirubin (Negative) Urine Urobilinogen (Negative) Ur Leukocyte Esterase (Negative) Urine WBC (Auto) (0-5) /hpf Urine RBC (Auto) (0-2) /hpf U Hyaline Cast (Auto) (0-2) /lpf U Epithel Cells (Auto) (0-2) /hpf Urine Bacteria (Auto) (None Seen) Nasal Screen MRSA (PCR) Negative (Negative) Stl C. cayetanensis PCR (NotDetected) Stool Rotavirus A PCR (NotDetected) Stl Adenov F 40/41 PCR (NotDetected) Stool Astrovirus (PCR) (NotDetected) Stool Campylobacter PCR (NotDetected) Stool Cryptosporidium PCR (NotDetected) Stl E.coli Shiga Tox PCR (NotDetected) Stl Enterotoxigenic E PCR (NotDetected) Stool EPEC (PCR) (NotDetected) Stool EAEC (PCR) (NotDetected) Stl E. histolytica PCR (NotDetected) Stool Giardia Lamblia PCR (NotDetected) Stool Salmonella PCR (NotDetected) Stool Sapovirus (PCR) (NotDetected) Stl P. shigelloides PCR (NotDetected) Stl Shigella/EIEC PCR (NotDetected) St Y.enterocolitica PCR (NotDetected) Stool Vibrio (PCR) (NotDetected) Stl Vibrio cholerae PCR (NotDetected) Stl Norovirus GI/GII PCR (NotDetected) Adenovirus (PCR) (NotDetected) B. pertussis DNA (PCR) (NotDetected) B.parapertussis DNA PCR (NotDetected) C. pneumoniae DNA (PCR) (NotDetected) Coronavirus OC43 (PCR) (NotDetected) Coronavirus HKU1 (PCR) (NotDetected) Coronavirus 229E (PCR) (NotDetected) SARS-CoV-2 (PCR) (NotDetected) Coronavirus NL63 (PCR) (NotDetected) Human Metapneumovir PCR (NotDetected) Influenza Type A (PCR) (NotDetected) Influenza Type B (PCR) (NotDetected) M. pneumoniae (PCR) (NotDetected) Parainfluenza 1 (PCR) (NotDetected) Parainfluenza 2 (PCR) (NotDetected) Parainfluenza 3 (PCR) (NotDetected) Parainfluenza 4 (PCR) (NotDetected) RSV (PCR) (NotDetected) Entero/Rhino (PCR) (NotDetected) 12/11/24 12/11/24 12/11/24 Range/Units 15:04 13:15 12:55 WBC 16.99 H (4.8-10.8) K/ul RBC 5.06 (4.20-5.40) M/uL Hgb 14.9 (12.0-16.0) g/dl Hct 44.5 (37.0-47.0) % MCV 87.9 (80.0-100.0) fL MCH 29.4 (25.0-34.0) pg MCHC 33.5 (32.0-36.0) g/dL RDW Std Deviation 44.9 (36.4-46.3) fL RDW Coeff of Viky 13.9 (11.5-14.5) % Plt Count 452 H (130-400) K/uL MPV 9.3 L (9.4-12.4) fL Immature Gran % (Auto) 0.4 % Neut % (Auto) 75.3 % Lymph % (Auto) 10.4 % Scott % (Auto) 7.5 % Eos % (Auto) 5.8 % Baso % (Auto) 0.6 % Neut # (Auto) 12.80 H (1.40-6.50) K/uL Lymph # (Auto) 1.76 (1.20-3.40) K/uL Scott # (Auto) 1.28 H (0.11-0.59) K/uL Eos # (Auto) 0.98 H (0.00-0.50) K/uL Baso # (Auto) 0.10 (0.00-0.20) K/uL Immature Gran # (Auto) 0.07 (0.01-0.20) K/uL PT 13.8 H (9.0-12.0) Seconds INR 1.3 H (0.9-1.1) Sodium 137 (136-145) mmol/L Potassium 4.1 (3.5-5.1) mmol/L Chloride 101 (98-107) mmol/L Carbon Dioxide 25 (21-32) mmol/L Anion Gap 11 (3-11) BUN 10 (6-23) mg/dl Creatinine 0.82 (0.6-1.2) mg/dl Est Cr Clr Drug Dosing 56.4 ml/min eGFR 76.43 BUN/Creatinine Ratio 12.2 (10-20) Glucose 107 H (70-99(Fasting)) mg/dl Lactate 1.1 (0.4-2.0) mmol/L Calcium 9.1 (8.6-10.3) mg/dl Phosphorus 3.5 (2.5-4.9) mg/dl Magnesium 2.0 (1.7-2.4) mg/dl Total Bilirubin 0.6 (0.2-1.0) mg/dl AST 11 L (13-39) U/L ALT 8 (7-52) U/L Alkaline Phosphatase 64 (34-104) U/L Troponin I High Sens 8.7 (0-14) pg/ml Total Protein 6.5 (6.0-8.3) gm/dl Albumin 3.8 (3.4-5.0) gm/dl Globulin 2.7 (2.5-4.0) gm/dl Albumin/Globulin Ratio 1.4 (0.9-2) Lipase 8 L (11-82) U/L Procalcitonin 0.02 (0-0.5) ng/ml TSH 0.437 (0.300-4.500) uIu/ml Urine Color Yellow Urine Appearance Cloudy A (Clear) Urine pH 6.0 (4.5-7.5) Ur Specific Sanders 1.015 (1.000-1.030) Urine Protein Negative (Negative) Urine Glucose (UA) Negative (Negative) Urine Ketones Trace H (Negative) Urine Blood Negative (Negative) Urine Nitrite Negative (Negative) Urine Bilirubin Negative (Negative) Urine Urobilinogen Negative (Negative) Ur Leukocyte Esterase 1+ H (Negative) Urine WBC (Auto) 0-5 (0-5) /hpf Urine RBC (Auto) 0-2 (0-2) /hpf U Hyaline Cast (Auto) 0-2 (0-2) /lpf U Epithel Cells (Auto) 6-10 H (0-2) /hpf Urine Bacteria (Auto) None Seen (None Seen) Nasal Screen MRSA (PCR) (Negative) Stl C. cayetanensis PCR (NotDetected) Stool Rotavirus A PCR (NotDetected) Stl Adenov F 40/41 PCR (NotDetected) Stool Astrovirus (PCR) (NotDetected) Stool Campylobacter PCR (NotDetected) Stool Cryptosporidium PCR (NotDetected) Stl E.coli Shiga Tox PCR (NotDetected) Stl Enterotoxigenic E PCR (NotDetected) Stool EPEC (PCR) (NotDetected) Stool EAEC (PCR) (NotDetected) Stl E. histolytica PCR (NotDetected) Stool Giardia Lamblia PCR (NotDetected) Stool Salmonella PCR (NotDetected) Stool Sapovirus (PCR) (NotDetected) Stl P. shigelloides PCR (NotDetected) Stl Shigella/EIEC PCR (NotDetected) St Y.enterocolitica PCR (NotDetected) Stool Vibrio (PCR) (NotDetected) Stl Vibrio cholerae PCR (NotDetected) Stl Norovirus GI/GII PCR (NotDetected) Adenovirus (PCR) Not Detected (NotDetected) B. pertussis DNA (PCR) Not Detected (NotDetected) B.parapertussis DNA PCR Not Detected (NotDetected) C. pneumoniae DNA (PCR) Not Detected (NotDetected) Coronavirus OC43 (PCR) Not Detected (NotDetected) Coronavirus HKU1 (PCR) Not Detected (NotDetected) Coronavirus 229E (PCR) Not Detected (NotDetected) SARS-CoV-2 (PCR) Not Detected (NotDetected) Coronavirus NL63 (PCR) Not Detected (NotDetected) Human Metapneumovir PCR Not Detected (NotDetected) Influenza Type A (PCR) Not Detected (NotDetected) Influenza Type B (PCR) Not Detected (NotDetected) M. pneumoniae (PCR) Not Detected (NotDetected) Parainfluenza 1 (PCR) Not Detected (NotDetected) Parainfluenza 2 (PCR) Not Detected (NotDetected) Parainfluenza 3 (PCR) Not Detected (NotDetected) Parainfluenza 4 (PCR) Not Detected (NotDetected) RSV (PCR) Not Detected (NotDetected) Entero/Rhino (PCR) Not Detected (NotDetected) Diagnostic Findings Chest X-Ray 12/11/24 12:58 XR chest 1V portable CLINICAL HISTORY: Chest pain, nonspecific TECHNIQUE: Single frontal radiograph of the chest was obtained. Comparison: Comparison is made to chest radiograph 11/27/2024 FINDINGS: No lines and tubes are seen. The cardiomediastinal silhouette is obscured. Left lower lung predominant airspace opacities are seen. Moderate left pleural effusion is seen. ACDF is seen. IMPRESSION: Moderate left pleural effusion is seen with underlying atelectasis. Superimposed aspiration/pneumonia may be present in the left lung. ACT 112: Negative or not required by law. Electronically signed by: Adelso Hernandez M.D. 12/11/2024 1:44 PM Abdomen/Pelvis CT 12/11/24 14:[address] WITH IV CONTRAST HISTORY: Acute generalized abdominal pain in a patient with history of lung cancer abd pain, lung CA TECHNIQUE: Multiaxial CT images of the abdomen and pelvis were performed following the IV administration of 94 cc of Optiray, A dose lowering technique was utilized adhering to the principles of ALARA. COMPARISON STUDY: Chest CT of same day, CT abdomen and pelvis 09/08/2024, chest CT 11/25/2024 FINDINGS: Chest CT dictated separately. Pleural metastatic disease of the left hemithorax redemonstrated which overall is similar in appearance to the study from 11/25/2024. Partially imaged thoracic lymphadenopathy. Cardiomegaly. Nodular intralobular septal thickening of the left lung base. Scattered subcentimeter solid pulmonary nodules in the right lung base again noted including a 5 mm nodule in the right lower lobe on image 16 series 7. No pneumatosis or pneumoperitoneum. Unremarkable spleen, mildly atrophic pancreas, gallbladder and adrenal glands. The liver is within normal limits. Patent portal vein. Unremarkable kidneys. No hydronephrosis. Partially decompressed urinary bladder. Hysterectomy with pelvic floor relaxation. Atherosclerosis of the aorta without aneurysm. No pathologically enlarged lymph nodes within the abdomen. No bowel obstruction or bowel wall thickening. Anastomotic sutures in the mid sigmoid. Colonic diverticulosis. Moderate colonic fecal retention. No CT evidence of acute appendicitis. There are several small fat filled anterior abdominal hernias including a left paracentral infraumbilical fat filled hernia on image 254 series 7 with associated inflammatory stranding. Degenerative and postoperative changes of the spine. IMPRESSION: 1. Metastatic disease of the lower chest redemonstrated. Please refer to the same day chest CT for additional findings. 2. No definite evidence of metastatic disease within the abdomen or pelvis. 3. No bowel obstruction or bowel wall thickening. 4. Small fat filled infraumbilical hernia with associated inflammatory stranding is suspicious for incarcerated fat. Correlate with physical exam findings. 5. Colonic diverticulosis without acute diverticulitis. ACT 112: Negative or not required by law. The above report was generated using voice recognition software. It may contain grammatical, syntax or spelling errors. Electronically signed by: Sonny King M.D. 12/11/2024 3:[address] 12/11/24 14:25 CT chest diagnostic w con CLINICAL HISTORY: abd pain, lung ca TECHNIQUE: Multidetector row helical CT of the chest was performed with intravenous contrast. Coronal and sagittal reformations were obtained. Automated dose lowering techniques and/or adjustment according to patient size were utilized for this exam. CT DOSE: 2005.91 mGy.cm Comparison: Comparison is made to CTA chest 11/25/2024 FINDINGS: Lungs and pleura: Pleural thickening and interstitial thickening is seen in the left lung is seen with mild left effusion, there are additional small pulmonary nodules measuring up to 5 mm in the right lower lobe. Heart and pericardium: Heart size is normal. No pericardial effusion. Vessels: Unremarkable. Mediastinum and gómez: 18 mm right lower paratracheal node is seen. Chest wall and lower neck: Numerous left axillary nodes measure up to 16 mm, similar to prior exam. Left lower cervical nodes measure up to 13 mm. Right subclavian node measures 11 mm. Abdomen: For findings below the diaphragm, please refer to CT of the abdomen dated the same. Bones: Degenerative changes are seen in the spine. There is ACDF and T12 cement arthroplasty. IMPRESSION: 1. Prominent pleural and interstitial thickening are again seen on the left with stable pulmonary nodules. Lymphadenopathy in the bilateral cervic al/subclavian region and left axillary region are seen as well as the previously noted mediastinal lymphadenopathy. 2. No acute abnormalities in the chest. ACT 112: Negative or not required by law. Electronically signed by: Adelso Hernandez M.D. 12/11/2024 3:40 PM PG Care Time/CCT Total # of Minutes Spent Total Time Spent with Patient: Total time spent is greater than 50% in coordination of care (as documented) at patient's floor/unit and/or counseling patient: I spent 80 minutes overall addressing this case: 15 min in medical data review/discussion with referring provider(s) and/or preparation for the visit incl OSH review 15 min in direct interaction with the patient/exam 30 min in Advance Care Planning/Goals of Care discussions as detailed above in note (must be >16min) 10 min in subsequent review and synthesis of assessment and plan 10 min communicating with other providers regarding the patient's case: primary team Advanced Care Planning 42031 Advanced Care Planning 30 Min [place] [address] IN/OBS CONSULT LVL 4,60M (25 - SIGNIFICANT, SEPARATELY IDENTIFIABLE ) Patient Type New Medical Decision Making High Complexity Diagnoses Dyspnea and respiratory abnormalities R06.00; R06.89 Cancer related pain G89.3 Acute generalized abdominal pain R10.84 Opioid-induced constipation K59.03; T40.2X5A Anxiety associated with cancer diagnosis F41.1; C80.1 Weakness generalized R53.1 Advanced care planning/counseling discussion Z71.89 Additional Codes Advanced Care Planning - 12512 Advanced Care Planning 30 Min: 46455 Advanced Care Planning 30 Min ([id number])
--- NOTE | 2024-12-12 16:02 | Hospitalist Progress Note ---
Date of Service December 12, 2024 Assessment & Plan (1) Pleural effusion: (2) Anxiety associated with cancer diagnosis: (3) Anxiety: (4) Primary lung squamous cell carcinoma: (5) Pulmonary embolism: (6) Abdominal pain: Plan The patient is a 69-year-old female with a past medical history of lung CA, recent lower extremity DVT who presents to the ED on 12/11/2024 with abdominal pain Assessment and plan: Suspected left lower lobe pneumonia: Continue IV cefepime/Vanco, check MRSA swab- negative, chest imaging stable Reports some intermittent shortness of breath and chills, leukocytosis noted Blood cultures pending, no hypoxia noted, continue to monitor - will discontinue vancomycin given MRSA is negative and at intravenous doxycycline to cover atypicals Has been feeling better since admission -Will try nebulized bronchodilator for occasional wheezing Abdominal pain: No clear etiology, A/P CT without obstruction or metastatic disease Continue home pain regimen of MS Contin and p.o. Dilaudid, IV Dilaudid as needed for breakthrough pain Give Dulcolax suppositories to help with constipation, could also be referred pain from lower chest mets CT scan did not show any evidence of intra-abdominal metastatic disease The abdominal pain could be secondary to left lower lobe pneumonia Hx small cell lung ca: Takes Tagrisso at home, imaging looks stable Hold Tagrisso while infectious workup underway -Will start the medicine on discharge Palliative care encounter Appreciate palliative care input and recommendation New left lower extremity DVT (12/01/24): INR subtherapeutic, 1.3, start therapeutic Lovenox Daily INR- INR remains low at 1.4 and will continue Coumadin -Lovenox has been started and will be discontinued when INR is therapeutic Hx GERD: Continue Pepcid Hx hypothyroidism: Continue levothyroxine Patient is a DNR/DNI DVT prophylaxis: Therapeutic Lovenox Admission and Anticipated Discharge Date Admission Date: December 11, 2024 Subjective 12/12/2024 The patient was seen and examined in medical floor Presented with abdominal pain with history of metastatic lung cancer Noted to have pneumonia and does not have any evidence of metastatic disease in the abdomen or pelvis Remains stable and complains today of some wheezing but no chest pain and/or shortness of breath at rest Review of Systems Review of Systems: All systems reviewed and are unremarkable except as noted below Physical Exam Physical Exam: Lying in bed without any acute distress Constitutional: well developed, well nourished, + ill appearing and + obese Eyes: PERRL, conjunctivae normal, anicteric sclerae ENMT: external ear and nose normal, oropharynx normal Neck: trachea midline, no thyromegaly Respiratory: no respiratory distress Auscultation: + diminished lung sounds, + crackles ( Minimal crackles left base) and + wheezes ( minimal wheezing bilaterally) Cardiovascular: Rate/Rhythm: regular rate and regular rhythm; not tachycardic Heart Sounds: normal S1 and normal S2; no murmur Extremities: no edema Gastrointestinal (Abdomen): Inspection/Auscultation: normal bowel sounds; abdomen not distended Percussion/Palpation: abdomen soft; abdomen nontender Musculoskeletal: No acute arthritis involving any of the joint Neurologic: normal touch/pain/proprioception and moves all extremities; no focal motor deficits Lymphatic: no cervical or axillary lymphadenopathy Results & Data Results & Data Vital Signs (Past 12 Hours) Vital Signs Temp Pulse Resp BP Pulse Ox O2 Del Method 12/12/24 15:25 36.8 C 92 H 16 132/82 93 Room Air 12/12/24 07:29 36.8 C 88 16 103/66 92 Room Air Laboratory Results BMP 12/12/24 05:51 Creatinine 0.67 Medications Administered Current Inpatient Medications Acetaminophen (Acetaminophen 500 Mg Tab) 1,000 mg PO Q8H PRN PRN Reason: Headache or Pain Stop: 01/11/25 13:25 Albuterol (Albuterol Hfa 8 Gm Inhaler) 2 puffs INH Q4H PRN PRN Reason: Wheezing Stop: 01/10/25 21:30 Aspirin (Aspirin 81 Mg Ectab) 81 mg PO DAILY [facility] Stop: 01/11/25 08:59 Last Admin: 12/12/24 09:10 Dose: 81 mg Bisacodyl (Bisacodyl 10 Mg Supp) 10 mg [place] DAILY PRN PRN Reason: Constipation Stop: 01/10/25 21:30 Enoxaparin Sodium (Enoxaparin 80 Mg/0.8 Ml Syr) 70 mg SQ Q12 [facility] Stop: 01/10/25 21:59 Last Admin: 12/12/24 09:08 Dose: 70 mg Famotidine (Famotidine 20 Mg Tab) 20 mg PO BID [facility] Stop: 01/10/25 21:44 Last Admin: 12/12/24 09:10 Dose: 20 mg Hydromorphone HCl (Hydromorphone Hcl 4 Mg Tab) 4 mg PO Q4H PRN PRN Reason: pain Stop: 12/25/24 21:30 Hydromorphone HCl (Hydromorphone Inj 0.5 Mg/0.5 Ml Syr) 1 mg IV Q4H PRN PRN Reason: dyspnea, severe pain Stop: 12/25/24 21:30 Cefepime HCl (Maxipime 2000mg) 1,000 mg in 10 mls @ 5 mls/min IV Q12H [facility]; Protocol Stop: 12/14/24 06:59 Last Admin: 12/12/24 06:17 Dose: 5 mls/min Vancomycin HCl 750 mg/ Sodium (Chloride) 265 mls @ 200 mls/hr IV Q12H [facility] Stop: 12/14/24 05:59 Last Infusion: 12/12/24 08:06 Dose: Infused Levothyroxine Sodium ([facility]othyroxine Sodium 100 Mcg Tablet) [facility] Stop: 01/11/25 06:29 Last Admin: 12/12/24 06:44 Dose: 100 mcg Lisinopril (Lisinopril 10 Mg Tab) 10 mg PO DAILY [facility] Stop: 01/11/25 08:59 Last Admin: 12/12/24 09:10 Dose: 10 mg Lorazepam (Lorazepam 0.5 Mg Tab) 0.5 mg PO Q4H PRN PRN Reason: anxiety, insomnia, nausea from cancer Stop: 01/10/25 21:30 Mineral Oil (Mineral Oil Enema 133 Ml Btl) 133 ml [place] Q2D PRN PRN Reason: Constipation,no BM in 2-3 days Stop: 01/11/25 15:00 Miscellaneous Information (Vancomycin Consult Active) 1 each N/A UD PRN PRN Reason: Consult Stop: 01/10/25 21:30 Morphine Sulfate (Morphine Sulfate Cr 15 Mg Tabcr) 30 mg PO Q12H [facility] Stop: 12/25/24 21:59 Last Admin: 12/12/24 10:41 Dose: 30 mg Polyethylene Glycol (Polyethylene (Miralax) 17 Gm Pack) 17 gm PO DAILY PRN PRN Reason: Constipation Stop: 01/10/25 21:30 Last Admin: 12/12/24 09:09 Dose: 17 gm Senna/Docusate Sodium (Docusate Sodium/Senna 50/8.6mg Tab) 1 tab PO BID [facility] Stop: 01/11/25 20:59 Vitamin D (Cholecalciferol 25 Mcg (1000 Units) Tab) 25 mcg PO DAILY [facility] Stop: 01/11/25 08:59 Last Admin: 12/12/24 09:09 Dose: 25 mcg Warfarin Sodium (Warfarin Sod 1 Mg Tab) 1 mg PO TODAY@1600 [facility] Stop: 01/11/25 15:59 Zolpidem Tartrate (Zolpidem Tartrate 5 Mg Tab) 10 mg PO HS [facility] Stop: 01/10/25 20:59 Last Admin: 12/11/24 22:22 Dose: 10 mg
[2024-12-12] MEDS: WARFARIN SOD 1 MG TAB PO SCH (16:48)
[2024-12-12] MEDS: LORazepam 0.5 MG TAB PO PRN (16:48)
[2024-12-12] MEDS: HYDROmorphone INJ 0.5 MG/0.5 ML SYR IV PRN (19:40)
[2024-12-12] MEDS: DOCUSATE SODIUM/SENNA 50/8.6MG TAB PO SCH (22:08)
--- NOTE | 2024-12-12 22:55 | Electrocardiogram Report ---
Test Reason : Blood Pressure : */* mmHG Vent. Rate : 102 BPM Atrial Rate : 102 BPM P-R Int : 124 ms QRS Dur : 70 ms QT Int : 334 ms P-R-T Axes : 65 30 37 degrees QTcB Int : 435 ms Sinus tachycardia Nonspecific T wave abnormality When compared with ECG of 25-Nov-2024 13:18, No significant change Confirmed by Alberto Hicks ([id number] on 12/12/2024 10:55:35 PM Referred By: Confirmed By: Alberto Hicks
[2024-12-12 23:30] LABS: Adenovirus F 40/41 PCR Not Detected (NotDetected); Astrovirus PCR Not Detected (NotDetected); Campylobacter PCR Not Detected (NotDetected); Cryptosporidium PCR Not Detected (NotDetected); Cyclospora cayetanensis PCR Not Detected (NotDetected); Entamoeba histolytica PCR Not Detected (NotDetected); Enteroaggregative E.coli(EAEC) Not Detected (NotDetected); Enteropathogenic E.coli (EPEC) Not Detected (NotDetected); Enterotoxigenic E.coli (ETEC) Not Detected (NotDetected); Giardia lamblia PCR Not Detected (NotDetected); Norovirus GI/GII PCR Not Detected (NotDetected); Plesiomonas shigelloides PCR Not Detected (NotDetected); Rotavirus A PCR Not Detected (NotDetected); Salmonella PCR Not Detected (NotDetected); Sapovirus PCR Not Detected (NotDetected); Shiga-like Toxin E.coli (STEC) Not Detected (NotDetected); Shigella/Enteroinvasive E.coli Not Detected (NotDetected); Vibrio cholerae PCR Not Detected (NotDetected); Vibrio species PCR Not Detected (NotDetected); Yersinia enterocolitica PCR Not Detected (NotDetected)
[2024-12-13 08:02] LABS: Basophils # (auto) 0.07 K/uL (0.00-0.20); Basophils % (auto) 0.6 %; Eosinophils # (auto) 0.89 K/uL (0.00-0.50); Eosinophils % (auto) 8.2 %; Hemoglobin 11.9 g/dl (12.0-16.0); Immature Granulocytes # (auto) 0.04 K/uL (0.01-0.20); Immature Granulocytes % (auto) 0.4 %; Lymphocytes # (auto) 1.15 K/uL (1.20-3.40); Lymphocytes % (auto) 10.6 %; Mean Corpuscular Hemoglobin 29.5 pg (25.0-34.0); Mean Corpuscular Hgb Conc 33.1 g/dL (32.0-36.0); Mean Corpuscular Volume 89.3 fL (80.0-100.0); Mean Platelet Volume 9.3 fL (9.4-12.4); Monocytes # (auto) 0.95 K/uL (0.11-0.59); Monocytes % (auto) 8.8 %; Neutrophils # (auto) 7.74 K/uL (1.40-6.50); Neutrophils % (auto) 71.4 %; Platelet Count 352 K/uL (130-400); RDW Standard Deviation 46.6 fL (36.4-46.3); Red Blood Count 4.03 M/uL (4.20-5.40); White Blood Count 10.84 K/ul (4.8-10.8)
[2024-12-13 08:19] LABS: INR 1.5 (0.9-1.1); Prothrombin Time 15.3 Seconds (9.0-12.0)
[2024-12-13 08:25] LABS: Calcium 8.3 mg/dl (8.6-10.3); Creatinine Clr Calc Pharmacy 81.6 ml/min; Potassium 4.1 mmol/L (3.5-5.1)
[2024-12-13] MEDS: ALBUT/IPRATROP 3MG/0.5MG NEB 3 ML VIAL ONE (09:50)
[2024-12-13] MEDS: WARFARIN SOD 3 MG TAB PO SCH (15:36)
--- NOTE | 2024-12-13 15:43 | Hospitalist Progress Note ---
Date of Service December 13, 2024 Assessment & Plan (1) Pleural effusion: (2) Anxiety associated with cancer diagnosis: (3) Anxiety: (4) Primary lung squamous cell carcinoma: (5) Pulmonary embolism: (6) Abdominal pain: Plan The patient is a 69-year-old female with a past medical history of lung CA, recent lower extremity DVT who presents to the ED on 12/11/2024 with abdominal pain Assessment and plan: Suspected left lower lobe pneumonia: Continue IV cefepime/Vanco, check MRSA swab- negative, chest imaging stable Reports some intermittent shortness of breath and chills, leukocytosis noted Blood cultures pending, no hypoxia noted, continue to monitor - will discontinue vancomycin given MRSA is negative and at intravenous doxycycline to cover atypicals Has been feeling better since admission -Will try nebulized bronchodilator for occasional wheezing Has been feeling reasonably well and ambulating in the hallway without any difficulties Will give oral antibiotic and likely discharge tomorrow to finish the course for a total of 10 days Abdominal pain: No clear etiology, A/P CT without obstruction or metastatic disease Continue home pain regimen of MS Contin and p.o. Dilaudid, IV Dilaudid as needed for breakthrough pain Give Dulcolax suppositories to help with constipation, could also be referred pain from lower chest mets CT scan did not show any evidence of intra-abdominal metastatic disease The abdominal pain could be secondary to left lower lobe pneumonia Denies any more abdominal pain Hx small cell lung ca: Takes Tagrisso at home, imaging looks stable Hold Tagrisso while infectious workup underway -Will start the medicine on discharge -Appreciate palliative care input and recommendation and most likely she will discontinue her cancer medication medications Palliative care encounter Appreciate palliative care input and recommendation New left lower extremity DVT (12/01/24): INR subtherapeutic, 1.3, start therapeutic Lovenox Daily INR- INR remains low at 1.4 and will continue Coumadin -Lovenox has been started and will be discontinued when INR is therapeutic INR is subtherapeutic and will give additional dose of Coumadin today Hx GERD: Continue Pepcid Hx hypothyroidism: Continue levothyroxine Patient is a DNR/DNI DVT prophylaxis: Therapeutic Lovenox Admission and Anticipated Discharge Date Admission Date: December 11, 2024 Subjective 12/12/2024 The patient was seen and examined in medical floor Presented with abdominal pain with history of metastatic lung cancer Noted to have pneumonia and does not have any evidence of metastatic disease in the abdomen or pelvis Remains stable and complains today of some wheezing but no chest pain and/or shortness of breath at rest 12/13/2024 The patient was seen and examined in medical floor she has been stable and complains to have some pain in the left shoulder area and adjoining area of the axilla due to lymph node enlargement She does have occasional wheezing but denies any significant shortness of breath Review of Systems Review of Systems: All systems reviewed and are unremarkable except as noted below Physical Exam Physical Exam: Lying in bed without any acute distress Constitutional: well developed, well nourished, + ill appearing and + obese Eyes: PERRL, conjunctivae normal, anicteric sclerae ENMT: external ear and nose normal, oropharynx normal Neck: trachea midline, no thyromegaly Respiratory: no respiratory distress Auscultation: + diminished lung sounds, + crackles ( Minimal crackles left base) and + wheezes ( minimal wheezing bilaterally) Cardiovascular: Rate/Rhythm: regular rate and regular rhythm; not tachycardic Heart Sounds: normal S1 and normal S2; no murmur Extremities: no edema Gastrointestinal (Abdomen): Inspection/Auscultation: normal bowel sounds; abdomen not distended Percussion/Palpation: abdomen soft; abdomen nontender Musculoskeletal: No acute arthritis involving any of the joint Neurologic: normal touch/pain/proprioception and moves all extremities; no focal motor deficits Lymphatic: no cervical or axillary lymphadenopathy Results & Data Results & Data Vital Signs (Past 12 Hours) Vital Signs Temp Pulse Resp BP Pulse Ox O2 Del Method 12/13/24 15:12 36.8 C 88 16 135/79 94 Room Air 12/13/24 09:51 77 17 93 Room Air 12/13/24 08:45 Room Air 12/13/24 06:56 36.9 C 89 16 114/71 92 Room Air Laboratory Results Short CBC 12/13/24 Range/Units 07:22 WBC 10.84 H (4.8-10.8) K/ul Hgb 11.9 L D (12.0-16.0) g/dl Hct 36.0 L (37.0-47.0) % Plt Count 352 (130-400) K/uL BMP 12/13/24 07:22 Sodium 136 Potassium 4.1 Chloride 106 Carbon Dioxide 24 BUN 8 Creatinine 0.57 L Glucose 88 Calcium 8.3 L Medications Administered Current Inpatient Medications Acetaminophen (Acetaminophen 500 Mg Tab) 1,000 mg PO Q8H PRN PRN Reason: Headache or Pain Stop: 01/11/25 13:25 Albuterol (Albuterol Hfa 8 Gm Inhaler) 2 puffs INH Q4H PRN PRN Reason: Wheezing Stop: 01/10/25 21:30 Albuterol (Albut/Ipratrop 3mg/0.5mg Neb 3 Ml Vial) 3 ml [place]B Q6R PRN; Protocol PRN Reason: Wheezing Stop: 01/12/25 09:35 Aspirin (Aspirin 81 Mg Ectab) 81 mg PO DAILY [facility] Stop: 01/11/25 08:59 Last Admin: 12/13/24 08:04 Dose: 81 mg Bisacodyl (Bisacodyl 10 Mg Supp) 10 mg [place] DAILY PRN PRN Reason: Constipation Stop: 01/10/25 21:30 Doxycycline Hyclate (Doxycycline Hyclate 100 Mg Cap) 100 mg PO BID [facility] Stop: 12/18/24 20:59 Enoxaparin Sodium (Enoxaparin 80 Mg/0.8 Ml Syr) 70 mg SQ Q12 [facility] Stop: 01/10/25 21:59 Last Admin: 12/13/24 08:04 Dose: 70 mg Famotidine (Famotidine 20 Mg Tab) 20 mg PO BID [facility] Stop: 01/10/25 21:44 Last Admin: 12/13/24 08:04 Dose: 20 mg Hydromorphone HCl (Hydromorphone Hcl 4 Mg Tab) 4 mg PO Q4H PRN PRN Reason: pain Stop: 12/25/24 21:30 Hydromorphone HCl (Hydromorphone Inj 0.5 Mg/0.5 Ml Syr) 1 mg IV Q4H PRN PRN Reason: dyspnea, severe pain Stop: 12/25/24 21:30 Last Admin: 12/13/24 08:03 Dose: 1 mg Cefepime HCl (Maxipime 2000mg) 1,000 mg in 10 mls @ 5 mls/min IV Q12H [facility]; Protocol Stop: 12/16/24 06:59 Last Admin: 12/13/24 06:16 Dose: 5 mls/min Vancomycin HCl 750 mg/ Sodium (Chloride) 265 mls @ 200 mls/hr IV Q12H [facility] Stop: 12/14/24 00:00 Last Infusion: 12/13/24 08:06 Dose: Infused Levothyroxine Sodium (Levothyroxine Sodium 100 Mcg Tablet) 100 mcg PO DAILYBB [facility] Stop: 01/11/25 06:29 Last Admin: 12/13/24 06:15 Dose: 100 mcg Lisinopril (Lisinopril 10 Mg Tab) 10 mg PO DAILY [facility] Stop: 01/11/25 08:59 Last Admin: 12/13/24 08:05 Dose: Not Given Lorazepam (Lorazepam 0.5 Mg Tab) 0.5 mg PO Q4H PRN PRN Reason: anxiety, insomnia, nausea from cancer Stop: 01/10/25 21:30 Last Admin: 12/13/24 15:34 Dose: 0.5 mg Mineral Oil (Mineral Oil Enema 133 Ml Btl) 133 ml [place] Q2D PRN PRN Reason: Constipation,no BM in 2-3 days Stop: 01/11/25 15:00 Miscellaneous Information (Vancomycin Consult Active) 1 each N/A UD PRN PRN Reason: Consult Stop: 12/14/24 00:00 Morphine Sulfate (Morphine Sulfate Cr 15 Mg Tabcr) 30 mg PO Q12H [facility] Stop: 12/25/24 21:59 Last Admin: 12/13/24 10:56 Dose: 30 mg Polyethylene Glycol (Polyethylene (Miralax) 17 Gm Pack) 17 gm PO DAILY PRN PRN Reason: Constipation Stop: 01/10/25 21:30 Last Admin: 12/12/24 09:09 Dose: 17 gm Senna/Docusate Sodium (Docusate Sodium/Senna 50/8.6mg Tab) 1 tab PO BID [facility] Stop: 01/11/25 20:59 Last Admin: 12/13/24 08:06 Dose: 1 tab Vitamin D (Cholecalciferol 25 Mcg (1000 Units) Tab) 25 mcg PO DAILY [facility] Stop: 01/11/25 08:59 Last Admin: 12/13/24 08:04 Dose: 25 mcg Warfarin Sodium (Warfarin Sod 3 Mg Tab) 3 mg PO TODAY@1600 [facility] Stop: 01/12/25 15:59 Last Admin: 12/13/24 15:36 Dose: 3 mg Zolpidem Tartrate (Zolpidem Tartrate 5 Mg Tab) 10 mg PO HS [facility] Stop: 01/10/25 20:59 Last Admin: 12/12/24 22:08 Dose: 10 mg
[2024-12-13] MEDS: CEFEPIME 2000MG 2,000 MG/20 ML SYR IV SCH (17:02)
[2024-12-13] MEDS: ALBUT/IPRATROP 3MG/0.5MG NEB 3 ML VIAL NEB PRN (20:12)
[2024-12-13] MEDS: DOXYCYCLINE HYCLATE 100 MG CAP PO SCH (22:02)
[2024-12-13] MEDS: OPTIRAY 320 125ml IV ONE (22:50)
--- NOTE | 2024-12-14 00:23 | CT Scan Report ---
Exam(s): CTA CHEST IV Amt: 115 ml opti 320 EXAM: CT Angiography Chest With Intravenous Contrast CLINICAL HISTORY: Reason for exam: PE. TECHNIQUE: Axial computed tomographic angiography images of the chest with intravenous contrast. CTDI is 40.8 mGy and DLP is 814.59 mGy-cm. Automated exposure control was utilized for the study. A dose lowering technique was utilized adhering to the principles of ALARA. MIP reconstructed images were created and reviewed. COMPARISON: No relevant prior studies available. FINDINGS: Pulmonary arteries: Unremarkable. No pulmonary embolism. Aorta: No acute findings. No thoracic aortic aneurysm. Lungs: Atelectasis in the of the left lower lobe with diffuse left- sided pleural thickening. Small pericardial effusion of her. No mass. Pleural space: Small left pleural effusion. Heart: Unremarkable. No cardiomegaly. No significant pericardial effusion. No evidence of RV dysfunction. Bones/joints: No acute fracture. No dislocation. Soft tissues: Unremarkable. Lymph nodes: Unremarkable. No enlarged lymph nodes. IMPRESSION: No acute findings in the visualized arteries of the chest. The prior left-sided diffuse pleural thickening concerning for underlying neoplasm. Electronically signed by: Silverio Brown MD 12/14/24 00:22 AM
--- NOTE | 2024-12-14 07:28 | Electrocardiogram Report ---
Test Reason : Blood Pressure : */* mmHG Vent. Rate : 96 BPM Atrial Rate : 96 BPM P-R Int : 132 ms QRS Dur : 80 ms QT Int : 358 ms P-R-T Axes : 52 16 10 degrees QTcB Int : 452 ms Normal sinus rhythm Nonspecific T wave abnormality Abnormal ECG When compared with ECG of 11-Dec-2024 13:12, Nonspecific T wave abnormality now evident in Lateral leads Confirmed by Herb Paul ([id number] on 12/14/2024 7:28:04 AM Referred By: Irais Simmons Confirmed By: Herb Paul
[2024-12-14 07:31] LABS: Creatinine Clr Calc Pharmacy 72.7 ml/min
[2024-12-14 07:34] LABS: Prothrombin Time 20.3 Seconds (9.0-12.0)
[2024-12-14 07:38] LABS: Troponin I High Sensitivity 24.9 pg/ml (0-14)
[2024-12-14] MEDS: ACETAMINOPHEN 500 MG TAB PO PRN (08:08)
--- NOTE | 2024-12-14 15:02 | Hospitalist Progress Note ---
Date of Service December 14, 2024 Assessment & Plan (1) Pleural effusion: (2) Anxiety associated with cancer diagnosis: (3) Anxiety: (4) Primary lung squamous cell carcinoma: (5) Pulmonary embolism: (6) Abdominal pain: Plan The patient is a 69-year-old female with a past medical history of lung CA, recent lower extremity DVT who presents to the ED on 12/11/2024 with abdominal pain Assessment and plan: Suspected left lower lobe pneumonia: Continue IV cefepime/Vanco, check MRSA swab- negative, chest imaging stable Reports some intermittent shortness of breath and chills, leukocytosis noted Blood cultures pending, no hypoxia noted, continue to monitor - will discontinue vancomycin given MRSA is negative and at intravenous doxycycline to cover atypicals Has been feeling better since admission -Will try nebulized bronchodilator for occasional wheezing Has been feeling reasonably well and ambulating in the hallway without any difficulties Will give oral antibiotic and likely discharge tomorrow to finish the course for a total of [address] of the chest did not show any pulmonary embolism for any worsening of pneumonia Clinically much better and antibiotics have been changed to oral cefdinir and doxycycline Has been ambulating in the room and in the hallway and likely discharge tomorrow Has had chest pain with wheezing last night CT scan of the chest did not show any acute findings and EKG are unremarkable She was reassured and was agreeable to go home tomorrow Abdominal pain: No clear etiology, A/P CT without obstruction or metastatic disease Continue home pain regimen of MS Contin and p.o. Dilaudid, IV Dilaudid as needed for breakthrough pain Give Dulcolax suppositories to help with constipation, could also be referred pain from lower chest mets CT scan did not show any evidence of intra-abdominal metastatic disease The abdominal pain could be secondary to left lower lobe pneumonia Denies any more abdominal pain Hx small cell lung ca: Takes Tagrisso at home, imaging looks stable Hold Tagrisso while infectious workup underway -Will start the medicine on discharge -Appreciate palliative care input and recommendation and most likely she will discontinue her cancer medication medications She will discuss with her oncologist about her anticancer medication whether to continue or to hold - she takes oxycodone as an outpatient for pain control Palliative care encounter Appreciate palliative care input and recommendation New left lower extremity DVT (12/01/24): INR subtherapeutic, 1.3, start therapeutic Lovenox Daily INR- INR remains low at 1.4 and will continue Coumadin -Lovenox has been started and will be discontinued when INR is therapeutic INR is subtherapeutic and will give additional dose of Coumadin today Her INR is therapeutic at 2.0 today and Lovenox was discontinued Hx GERD: Continue Pepcid Hx hypothyroidism: Continue levothyroxine Patient is a DNR/DNI DVT prophylaxis: Therapeutic Lovenox Admission and Anticipated Discharge Date Admission Date: December 11, 2024 Subjective 12/12/2024 The patient was seen and examined in medical floor Presented with abdominal pain with history of metastatic lung cancer Noted to have pneumonia and does not have any evidence of metastatic disease in the abdomen or pelvis Remains stable and complains today of some wheezing but no chest pain and/or shortness of breath at rest 12/13/2024 The patient was seen and examined in medical floor she has been stable and complains to have some pain in the left shoulder area and adjoining area of the axilla due to lymph node enlargement She does have occasional wheezing but denies any significant shortness of breath 12/14/2024 The patient was seen and examined in medical floor She has had acute chest pain with shortness of breath last night and underwent CT scan of the chest and EKG Has been feeling much better since this morning Does not feel like going home today Review of Systems Review of Systems: All systems reviewed and are unremarkable except as noted below Physical Exam Physical Exam: Lying in bed without any acute distress Constitutional: well developed, well nourished, + ill appearing and + obese Eyes: PERRL, conjunctivae normal, anicteric sclerae ENMT: external ear and nose normal, oropharynx normal Neck: trachea midline, no thyromegaly Respiratory: no respiratory distress Auscultation: + diminished lung sounds, + crackles ( Minimal crackles left base) and + wheezes ( minimal wheezing bilaterally) Cardiovascular: Rate/Rhythm: regular rate and regular rhythm; not tachycardic Heart Sounds: normal S1 and normal S2; no murmur Extremities: no edema Gastrointestinal (Abdomen): Inspection/Auscultation: normal bowel sounds; abdomen not distended Percussion/Palpation: abdomen soft; abdomen nontender Neurologic: normal touch/pain/proprioception and moves all extremities; no focal motor deficits Lymphatic: no cervical or axillary lymphadenopathy Results & Data Results & Data Vital Signs (Past 12 Hours) Vital Signs Temp Pulse Resp BP Pulse Ox O2 Del Method 12/14/24 09:06 36.9 C 12/14/24 08:14 103 H 19 94 Room Air 12/14/24 08:10 Room Air 12/14/24 07:27 37.7 C H 79 16 124/74 96 Room Air Laboratory Results BMP 12/14/24 06:46 Creatinine 0.64 Medications Administered Current Inpatient Medications Acetaminophen (Acetaminophen 500 Mg Tab) 1,000 mg PO Q8H PRN PRN Reason: Headache or Pain Stop: 01/11/25 13:25 Last Admin: 12/14/24 08:08 Dose: 1,000 mg Albuterol (Albuterol Hfa 8 Gm Inhaler) 2 puffs INH Q4H PRN PRN Reason: Wheezing Stop: 01/10/25 21:30 Albuterol (Albut/Ipratrop 3mg/0.5mg Neb 3 Ml Vial) 3 ml NEB Q6R PRN; Protocol PRN Reason: Wheezing Stop: 01/12/25 09:35 Last Admin: 12/14/24 08:14 Dose: 3 ml Aspirin (Aspirin 81 Mg Ectab) 81 mg PO DAILY [facility] Stop: 01/11/25 08:59 Last Admin: 12/14/24 08:08 Dose: 81 mg Bisacodyl (Bisacodyl 10 Mg Supp) 10 mg DC DAILY PRN PRN Reason: Constipation Stop: 01/10/25 21:30 Cefdinir (Cefdinir 300 Mg Cap) 300 mg PO BID [facility]; Protocol Stop: 12/19/24 20:59 Doxycycline Hyclate (Doxycycline Hyclate 100 Mg Cap) 100 mg PO BID [facility] Stop: 12/18/24 20:59 Last Admin: 12/14/24 08:08 Dose: 100 mg Famotidine (Famotidine 20 Mg Tab) 20 mg PO BID [facility] Stop: 01/10/25 21:44 Last Admin: 12/14/24 08:08 Dose: 20 mg Hydromorphone HCl (Hydromorphone Hcl 4 Mg Tab) 4 mg PO Q4H PRN PRN Reason: pain Stop: 12/25/24 21:30 Hydromorphone HCl (Hydromorphone Inj 0.5 Mg/0.5 Ml Syr) 1 mg IV Q4H PRN PRN Reason: dyspnea, severe pain Stop: 12/25/24 21:30 Last Admin: 12/13/24 16:18 Dose: 1 mg Levothyroxine Sodium (Levothyroxine Sodium 100 Mcg Tablet) 100 mcg PO DAILYBB [facility] Stop: 01/11/25 06:29 Last Admin: 12/14/24 06:14 Dose: 100 mcg Lisinopril (Lisinopril 10 Mg Tab) 10 mg PO DAILY [facility] Stop: 01/11/25 08:59 Last Admin: 12/14/24 08:08 Dose: 10 mg Lorazepam (Lorazepam 0.5 Mg Tab) 0.5 mg PO Q4H PRN PRN Reason: anxiety, insomnia, nausea from cancer Stop: 01/10/25 21:30 Last Admin: 12/13/24 15:34 Dose: 0.5 mg Mineral Oil (Mineral Oil Enema 133 Ml Btl) 133 ml DC Q2D PRN PRN Reason: Constipation,no BM in 2-3 days Stop: 01/11/25 15:00 Morphine Sulfate (Morphine Sulfate Cr 15 Mg Tabcr) 30 mg PO Q12H [facility] Stop: 12/25/24 21:59 Last Admin: 12/14/24 09:41 Dose: 30 mg Polyethylene Glycol (Polyethylene (Miralax) 17 Gm Pack) 17 gm PO DAILY PRN PRN Reason: Constipation Stop: 01/10/25 21:30 Last Admin: 12/12/24 09:09 Dose: 17 gm Senna/Docusate Sodium (Docusate Sodium/Senna 50/8.6mg Tab) 1 tab PO BID [facility] Stop: 01/11/25 20:59 Last Admin: 12/14/24 08:08 Dose: 1 tab Vitamin D (Cholecalciferol 25 Mcg (1000 Units) Tab) 25 mcg PO DAILY [facility] Stop: 01/11/25 08:59 Last Admin: 12/14/24 08:08 Dose: 25 mcg Warfarin Sodium (Warfarin Sod 3 Mg Tab) 3 mg PO TODAY@1600 [facility] Stop: 01/12/25 15:59 Last Admin: 12/13/24 15:36 Dose: 3 mg Zolpidem Tartrate (Zolpidem Tartrate 5 Mg Tab) 10 mg PO HS [facility] Stop: 01/10/25 20:59 Last Admin: 12/13/24 22:02 Dose: 10 mg
[2024-12-14] MEDS: CEFDINIR 300 MG CAP PO SCH (21:39)
[2024-12-15 07:33] VITALS: BP 116/75; TEMP 98.6
[2024-12-15 07:34] LABS: Creatinine Clr Calc Pharmacy 70.5 ml/min
[2024-12-15 07:43] LABS: INR 3.2 (0.9-1.1); Prothrombin Time 31.2 Seconds (9.0-12.0)
[2024-12-15] MEDS ORDERED: WARFARIN SOD 3 MG TAB PO SCH (09:00)
[2024-12-15 09:09] VITALS: PULSE 79; RESP 20; O2SAT 93
--- NOTE | 2024-12-15 11:47 | Discharge Summary ---
Discharge Summary Date of Service December 15, 2024 Principal Dx & Hospital Course #1 = Principal Diagnosis (1) Left lower lobe pneumonia: (2) Malignant pleural effusion: (3) Anxiety associated with cancer diagnosis: (4) Cancer related pain: (5) Metastatic primary lung cancer: (6) Primary lung squamous cell carcinoma: (7) Pulmonary embolism: (8) Opioid-induced constipation: Plan Patient presented to the emergency room with complaints of left upper abdominal pain. Imaging in the emergency room was consistent with possible left lower lobe pneumonia pain being referred to the abdomen. Patient was admitted to the hospital. She placed on broad-spectrum antibiotics for left lower lobe pneumonia. Patient had recent hospitalization and actually thoracentesis for a pleural effusion and high risk for possible MRSA pneumonia. She was started on vancomycin. Shortly within the first couple doses of antibiotics her abdominal pain significantly improved. Her leukocytosis significantly improved. She was continued on room air. On the night of 12/13/2024 she got more short of breath. CTA was performed no pulmonary embolism was seen. She was therapeutic with her warfarin treatment. Did show ongoing thickening in the left lower lobe consistent with her lung cancer. Only a small residual pleural effusion. Pathology from her thoracentesis from her previous hospitalization did result with during her hospitalization. This was shared with her on the day of discharge it does confirm a adenocarcinoma of the lung and consistent with a malignant pleural effusion. She did not require repeat thoracentesis this hospitalization. Blood cultures were sterile. Her MRSA nasal swab was negative and she was converted to oral antibiotics. As her abdominal pain improved her activity improved. On the day of discharge she was on room air. Abdominal pain had resolved. Tolerating oral antibiotics. Does have significant anxiety from her diagnosis and she does follow regularly with palliative care and has a special counseling opportunity through the palliative care and she is encouraged to continue with that. She will follow-up with her oncologist as well and discuss benefits of ongoing treatments and ongoing discussions of goals of care with palliative care. Her home health care will be resumed upon discharge as well. Notes For Next Care Provider Continue to follow with oncology and palliative care Medication Changes From Visit Doxycycline and cefdinir for pneumonia Baclofen and lidocaine patch discontinue Admission HPI Per Admitting Provider Patient is a 69-year-old female with a past medical history of metastatic lung cancer, asthma, atrial fibrillation, HLD, GERD, osteomyelitis, anxiety, recent acute left DVT, colon resection, hypothyroidism who presents to the ED on 12/11/2024 with complaints of abdominal pain and a few episodes of diarrhea. Patient reports intermittent chills denies any fevers. Reported that abdominal pain started a few days ago. Reports shortness of breath with any exertion. Reports abdominal pain is worse after eating. Also reports that she has not had bowel movement since Sunday. She is on chronic pain medication. Reports her abdominal pain has been worsening since then. She otherwise denies any nausea/vomiting. Denies any respiratory symptoms. Patient was recently admitted and discharged on 12/01/2024 with complaints of shortness of breath at this time the patient had a moderate left-sided pleural effusion and had pigtail insertion by Dr. Field. Fluid studies at that time were consistent with adenocarcinoma. Her chest tube was removed on 11/27/2024. At this time, the patient complained of abdominal pain which improved after the chest tube was removed. She was also started on Coumadin for an acute lower extremity DVT in her left posterior tibial vein. On arrival to the ED today, labs remarkable for WBC 16, platelets 452, INR 1.3 Respiratory panel negative, UA unremarkable Chest x-ray showed moderate left pleural effusion with underlying atelectasis, superimposed aspiration/pneumonia may be present to left lung Abdominal/pelvis CT showed no definite evidence of metastatic disease, small fat filled hernia with incarcerated fat, no evidence of bowel obstruction noted Chest CT with no acute abnormalities in the chest Blood cultures pending The patient will be admitted for infectious workup and management of abdominal pain Admission Exam Per Admitting Provider See H&P Discharge Exam Constitutional: Alert, nontoxic HEENT: Mucous membranes moist. Lungs: Decreased breath sounds, dull and crackles at the left base CV: S1-S2, regular Abdomen: Soft, nontender, nondistended Extremities: No significant edema Neuro: No focal deficits Psych: Cooperative, normal mood Updated Medication List Medication Instructions Recorded Confirmed Type acyclovir 400 mg tablet 400 mg PO TID PRN Cold Sore(s) 08/22/18 12/11/24 History albuterol sulfate 90 mcg/actuation 2 puff inhalation Q4H PRN Wheezing 08/22/18 12/11/24 History aerosol inhaler (Ventolin HFA) levothyroxine 100 mcg tablet 100 mcg PO DAILYBB 08/22/18 12/11/24 History alirocumab 75 mg/mL subcutaneous 75 mg subcut Q14D 09/19/23 12/11/24 History pen injector (Praluent Pen) aspirin 81 mg tablet,delayed 81 mg PO DAILY 09/19/23 12/11/24 History release cholecalciferol (vitamin D3) 25 25 mcg PO DAILY 09/19/23 12/11/24 History mcg (1,000 unit) capsule famotidine 20 mg tablet 20 mg PO BID 09/19/23 12/11/24 History ipratropium 0.5 mg-albuterol 3 mg 3 ml inhalation Q6H PRN Wheezing 09/19/23 12/11/24 History (2.5 mg base)/3 mL nebulization soln lorazepam 0.5 mg tablet (Ativan) 0.5 mg PO Q6H PRN anxiety, 09/08/24 12/11/24 History insomnia, nausea from cancer osimertinib 80 mg tablet (Tagrisso) 80 mg PO PM 09/08/24 12/11/24 History zolpidem 10 mg tablet 10 mg PO HS 09/08/24 12/11/24 History lidocaine 4 % topical patch 1 patch topical DAILY PRN pain #30 09/10/24 12/11/24 Rx ea baclofen 10 mg tablet 20 mg PO BID 09/11/24 12/11/24 History prochlorperazine maleate 10 mg 10 mg PO DAILY PRN Nausea And 09/11/24 12/11/24 History tablet Vomiting lisinopril 20 mg tablet 10 mg PO DAILY 09/25/24 12/11/24 History hydromorphone 4 mg tablet 4 mg PO Q4H PRN pain 1 month #90 11/06/24 12/11/24 Rx (Dilaudid) tabs docusate sodium 100 mg capsule 100 mg PO BID PRN Constipation 11/25/24 12/11/24 History guaifenesin 600 mg tablet, 600 mg PO BID PRN chest congestion 11/25/24 12/11/24 History extended release 12 hr (Mucinex) ondansetron HCl 8 mg tablet 8 mg PO Q6H PRN Nausea And Vomiting 11/25/24 12/11/24 History polyethylene glycol 3350 17 gram 17 g PO DAILY PRN Constipation 11/25/24 12/11/24 History oral powder packet (Miralax) warfarin 2 mg tablet 1 mg (1/2 x 2 mg) PO DAILY #20 tabs 12/01/24 12/11/24 Rx morphine 30 mg tablet,extended 30 mg PO Q12H severe cancer pain 12/04/24 12/11/24 Rx release (MS Contin) long acting control 1 month #60 tabs cefdinir 300 mg capsule 300 mg PO BID 5 days #10 caps 12/15/24 Rx doxycycline hyclate 100 mg capsule 100 mg PO BID 5 days #10 caps 12/15/24 Rx Hospital Stay Data Consultations 12/11/24 18:59 ED Decision to Admit Stat 12/11/24 21:31 Consult Palliative Care Routine Diagnostic Imagining Performed 12/11/24 14:23 CT abd pelvis IV con only Stat 12/11/24 14:25 CT chest diagnostic w con Stat 12/13/24 22:12 CT angio chest PE protocol Urgent [facility] Blood cultures no growth to date INR 3.2 Electrolytes stable Creatinine 0.66 CTA of the chest showed continued thickening of the left lower lobe pleura, only small residual pleural effusion Pending Results Patient Have Any Pending Studies at Discharge: No Discharge Instructions Given to Patient (Per Discharging Provider) Encourage you to continue to discuss your treatment plan and options with palliative care and your oncologist and counseling provided through palliative care. Home Health Attestation I certify that this patient is under my care and that I, or a physicians assistant director of nursing working with me, had a face to-face encounter that meets the home health [id number] encounter requirements with this patient. The encounter with the patient was in whole, or in part, for the following medical condition, which is the primary reason for home health care (list medical condition): I certify that, based on my findings, the following services are medically necessary home health services: My clinical findings support the need for the above services because: Further, I certify that my clinical findings support that this patient is homebound (i.e. absences from home require considerable and taxing effort and are for medical reasons or religion services or infrequently or of short duration when for other reasons) because: Certification for Home Health Services: Based on the above findings, I certify that this patient is confined to the home and needs intermittent long-term care, physical therapy and/or speech therapy or continues to need occupational therapy. The patient is under my care, and I have initiated the establishment of the plan of care. This patient will be followed by a physician who will periodically review the plan of care. Total Time Total Time Spent Total Time Spent (In Minutes): 34
--- NOTE | 2024-12-16 13:45 | Coding Query ---
CODING QUERY To promote full compliance with coding requirements relating to patient care, provider participation is requested in all cases of wiener packer uncertainty. Please assist us with the question(s) below: Coding Question(s): Pt with metastatic lung cancer admitted with Pneumonia. Discharge Summary stated moderate pleural effusion with decrease in atelectasis superimposed on aspiration / pneumonia. Also stated pt with increased risk of aspiration pneumonia. Please document, if known or suspected, the type of pneumonia that patient was treated for. Thanks for your help! Jacinto Corrales POWER MACHINE OPERATOR [facility] Physician's Response(s): Unknown organism Principal Diagnosis: "that condition established after study, to be chiefly responsible for occasioning the admission of the patient to the hospital for care." Co-Existing Principal Diagnosis: "when two or more diagnoses equally meet the criteria for principal diagnosis as determined by the circumstances of admission, diagnostic work up, and/or therapy provided, and the Alphabetic Index, Tabular List, or another coding guideline does not provide sequencing direction, any one of the diagnoses may be sequenced first." "When the physician has documented what appears to be a current diagnosis in the body of the record, but has not included the diagnosis in the final diagnostic statement, the physician should be asked whether the diagnosis should be added." (Source Coding [facility] 2 QTR90. p3-4) LOREN
== END 2024-12-15 12:58 | disposition home health service (06) | DRG 178 ==
LOC: ED 12:33 → SUATTDRO 19:09 → 3N 19:09